=== PATIENT | female | born 1990 | race Two or more races ===

== ENCOUNTER 2023-07-26 12:40 | Outpatient (OUT) | payer BC, SELFPAY ==
--- NOTE | 2023-07-26 12:45 | US_ITS ---
[address] [address] Patient Name: MATTY HOLLEY MRN: [id number] date: 1990 Sex: F Assigned Patient Location: [facility] Current Patient Location: [facility] Accession/Order Number: [id number] Exam Date: 07/26/2023 12:45 Report Date: 07/26/2023 13:38 At the request of: DMITRIY BOWIE Procedure: US OB transvaginal EXAMINATION: US OB transvaginal HISTORY: MISSED MENSES COMPARISON: No relevant comparison available. FINDINGS: GESTATIONAL SAC: Present and normal appearing. YOLK SAC: Present and normal appearing. POLE: Present and normal appearing. CARDIAC: Present. UTERUS: Small subchorionic hematoma/implantation bleed. OVARIES: Right: Corpus lutein cyst. Left: Normal. CERVIX: 4.4 cm in length and closed. CUL-DE-SAC: Normal. OTHER: None. AGE BY LMP: 9 weeks 2 days DWIGHT BY LMP: 02/26/2024 AGE BY US CRL: 10 weeks 1 day DWIGHT BY US CRL: 02/20/2024 US/US OB transvaginal IMPRESSION: 1. Single live intrauterine . Electronically authenticated by: DANG MENDOZA Date: 07/26/2023 13:38
== END 2023-07-26 12:41 | disposition home or self-care (01) ==
LOC: NOMS 12:42
PROVIDERS: Visit Provider Obstetrics & Gynecology
DX: N92.6 Irregular menstruation, unspecified (principal); Z3A.10 10 weeks gestation of pregnancy
CPT/HCPCS: 76817

== ENCOUNTER 2023-08-08 15:47 | Outpatient (OUT) | payer BC, SELFPAY ==
[2023-08-08 16:26] LABS: Basophils Absolute Auto 0.1 10^3/uL (0.0-0.1); Basophils Percent Auto 0.8 % (0.2-2.0); Eosinophils Absolute Auto 0.1 10^3/uL (0.0-0.7); Eosinophils Percent Auto 1.5 % (0.9-7.0); Hematocrit 36.9 % (36.0-48.0); Hemoglobin 12.4 g/dL (12.0-16.0); Immature Granulocytes Abs Auto 0.02 10^3/uL (0.00-0.03); Immature Granulocytes Pct Auto 0.3 % (0.0-0.5); Lymphocytes Absolute Auto 2.2 10^3/uL (1.2-3.8); Lymphocytes Percent Auto 27.6 % (20.5-60.0); Mean Corpuscular HGB Conc 33.6 g/dL (29.9-35.2); Mean Corpuscular Hemoglobin 31.7 pg (26.7-34.0); Mean Corpuscular Volume 94.4 fL (81.0-99.0); Mean Platelet Volume 10.1 fL (9.5-13.5); Monocytes Absolute Auto 0.4 10^3/uL (0.3-0.8); Monocytes Percent Auto 5.6 % (1.7-12.0); Neutrophils Percent Auto 64.2 % (43.0-75.0); Platelet Count 289 10^3/uL (150-450); Red Blood Count 3.91 10^6/uL (4.20-5.40); White Blood Count 7.8 10^3/uL (4.0-11.0)
--- OUTSIDE RECORDS SUMMARY | 2023-08-08 16:27 | XMS_ITS | CCD ---
Author Organization [facility] Team Providers Care Salmon Gillnet Vessel Operator Name Role Phone SELF, SELF Unavailable Unavailable MIGUEL GAMBOA Unavailable Unavailable EZEQUIEL, DR CUEVA Consulting Unavailable EZEQUIEL, DR CUEVA Admitting Unavailable EZEQUIEL, DR CUEVA Attending Unavailable REQUEST, NONE LISTED Primary Care Unavaila Edmundo Archer Consulting Unavailable JUNIOR, HERBERT Consulting Unavailable JUNIOR, HERBERT Admitting Unavailable REQUEST, NONE LISTED Primary Care [place] PACHECO, HERBERT Attending Unavailable JUNIOR, HERBERT Consulting Unavailable JUNIOR, HERBERT Admitting Unavailable REQUEST, NONE LISTED Primary Care Un[place] PACHECO, HERBERT Attending Unavailable JUNIOR, HERBERT Consulting Unavailable REQUEST, NONE LISTED Primary Care Unavaila dennis PACHECO, HERBERT Admitting Unavailable JUNIOR, HERBERT Attending Unavailable REQUEST, NONE LISTED Primary Care Unavaila dennis PACHECO, HERBERT Consulting Unavailable JUNIOR, HERBERT Admitting Unavailable JUNIOR, HERBERT Attending Unavailable EZEQUIEL, DR CUEVA Admitting Unavailable EZEQUIEL, DR CUEVA Attending Unavailable EZEQUIEL, DR CUEVA Consulting Unavailable REQUEST, NONE LISTED Primary Care Unavaila dennis BERGMAN, LISA Admitting Unavailable REQUEST, NONE LISTED Primary Care [place] BERGMAN, LISA Attending Unavailable PACHECO, LISA Consulting Unavailable JUNIOR, HERBERT Consulting Unavailable REQUEST, NONE LISTED Primary Care Unavaila dennis PACHECO, HERBERT Admitting Unavailable JUNIOR, HERBERT Attending Unavailable Arminda Holt Unavailable Medications Current Medications Medication Drug Class(es) Dates Sig (Normalized) Sig (Original) [id number] 200 actuat albuterol 0.09 mg/actuat metered dose inhaler (1 source) beta2-Adrenergic Agonist Start: 03-29-2021 take 2 puff(s) by inhalation every four hours as needed Albuterol Sulfate HFA 108 (90 Base) MCG/ACT 2 puffs as needed Inhalation every 4 hrs Mar, Active Pre-Marlene (1 source) Pre-Marlene Active Problems Active Problems Problem Classification Problem Date Documented Date Episodic/Chronic Abdominal pain (4 sources) Right upper quadrant pain; Translations: [RIGHT UPPER QUADRANT PAIN] Onset: 08-19-2020 Episodic Biliary tract disease (1 source) Other cholelithiasis without obstruction; Translations: [OTH CHOLELITHIASIS W/O OBSTRUCTION] Onset: 08-27-2020 Episodic Menstrual disorders (4 sources) Secondary amenorrhea; Translations: [SECONDARY AMENORRHEA] Onset: 06-02-2020 Chronic Other upper respiratory infections (5 sources) Acute pharyngitis, unspecified; Translations: [Acute upper respiratory infection, unspecified] Onset: 11-08-2020 Episodic Screening and history of mental health and substance abuse codes (1 source) Personal history of nicotine dependence; Translations: [PERSONAL HISTORY OF NICOTINE DEPEND] Onset: 11-24-2020 Episodic Unclassified (1 source) Hemorrhage in early , unspecified / O20.9(ICD-10) Onset: 01-09-2017 Unclassified (1 source) CONTACT W/AND (SUSP) EXPOS COVID-19; Translations: [CONTACT W/AND (SUSP) EXPOS COVID-19] Onset: 11-24-2020 Viral infection (1 source) Herpesviral vulvovaginitis; 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 Past or Other Problems Problem Classification Problem Date Documented Da te Episodic/Chronic Immunizations and screening for infectious disease (1 source) Contact with and (suspected) exposure to other viral communicable diseases Onset: 03-29-2021 Resolved: 03-29-2021 Episodic Other aftercare (1 source) Other skilled nursing (current) drug therapy; Translations: [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] Onset: 08-19-2020 Episodic Other and delivery including normal (4 sources) Encounter for test, result positive; Translations: [ENC TEST RESULT POSITIVE] Onset: 05-20-2020 Episodic Unclassified (1 source) Hemorrhage in early , unspecified; Translations: [Hemorrhage in early , unspecified] Onset: 01-09-2017 Viral infection (1 source) COVID-19 Onset: 03-29-2021 Resolved: 03-29-2021 Results Test Name Value Interpretation Reference Range Facility Complete Blood Count Auto Di ffon 06-14-2021 Basophils (Bld) [#/Vol] 0.0 10*3/uL Normal 0.0-0.2 [facility] Comment on above: Result Comment: PERF ORMED BY: [place] [address] PATHOLOGIST COPING MACHINE OPERATOR STEPHANIE ROACH M.D. Performed By: #### C BC #### [address] Basophils/100 WBC (Bld) 0.6 % Normal . [facility] Comment on above: Performed By: #### C BC #### [address] Eosinophils (Bld) [#/Vol] 0.1 10*3/uL Normal 0.0-0.45 [facility] Comment on above: Performed By: #### C BC #### [address] Eosinophils/100 WBC (Bld) 1.7 % Normal . [facility] Comment on above: Performed By: #### C BC #### [address] Erythrocyte distribution width (RBC) [Ratio] 13.5 % Normal 11.9-15.3 [facility] Comment on above: Performed By: #### C BC #### [address] Hematocrit (Bld) [Volume fraction] 30.6 % Low 34.0-46.4 [facility] Comment on above: Performed By: #### C BC #### [place] [address] [place] Hemoglobin (Bld) [Mass/Vol] 10.2 g/dL Low 11.8-15.4 [facility] Comment on above: Performed By: #### C BC #### [address] Lymphocytes (Bld) [#/Vol] 2.1 10*3/uL Normal 1.00-4.8 [facility] Comment on above: Performed By: #### C BC #### [facility] [address] Lymphocytes/100 WBC (Bld) 24.1 % Normal . [facility] Comment on above: Performed By: #### C BC #### [facility] [address] MCH (RBC) [Entitic mass] 31.4 pg Normal 24.7-34.3 [facility] Comment on above: Performed By: #### C BC #### [address] MCV (RBC) [Entitic vol] 94.0 fL Normal 80-100 F [facility] Comment on above: Performed By: #### C BC #### [address] Mean Corpuscular HGB Conc 33.4 g/dL Normal 32.0-35.0 [facility] Comment on above: Performed By: #### C BC #### [place] [address] [place] Monocytes (Bld) [#/Vol] 0.4 10*3/uL Normal 0.0-0.8 [facility] Comment on above: Performed By: #### C BC #### [place] [address] [place] Monocytes/100 WBC (Bld) 4.9 % Normal . [facility] Comment on above: Performed By: #### C BC #### [address] Neutrophils (Bld) [#/Vol] 5.9 10*3/uL Normal 1.8-7.7 [facility] Comment on above: Performed By: #### C BC #### [place] [address] [place] Neutrophils/100 WBC (Bld) 68.7 % Normal . [facility] Comment on above: Performed By: #### C BC #### [place] [address] [place] Nucleated RBC/100 WBC (Bld) [Ratio] 0.1 % Normal 0-0.5 [facility] Comment on above: Performed By: #### C BC #### [address] Platelet mean volume (Bld) [Entitic vol] 8.0 fL Normal 6.3-10.7 [facility] Comment on above: Performed By: #### C BC #### [address] Platelets (Bld) [#/Vol] 298 10*3/uL Normal 150-450 [facility] Comment on above: Performed By: #### C BC #### [address] RBC (Bld) [#/Vol] 3.25 10*6/uL Low 3.60-5.00 [facility] Comment on above: Performed By: #### C BC #### [address] WBC (Bld) [#/Vol] 8.6 10*3/uL Normal 4.5-11.0 [facility] Comment on above: Performed By: #### C BC #### [address] Dipstick and Microscopicon 0 06-14-2021 Appearance (U) Clear Normal Clear [facility] Comment on above: Order Comment: Name Collection Type:: Clean-Voided Midstream Performed By: #### A DDONUAPLUS, OBUDS #### [address] Bacteria,Urine None Seen Normal None Seen [facility] Comment on above: Order Comment: Name Collection Type:: Clean-Voided Midstream Performed By: #### A DDONUAPLUS, OBUDS #### [address] Bilirubin,Urine Negative Normal Negative [facility] Comment on above: Order Comment: Name Collection Type:: Clean-Voided Midstream Performed By: #### A DDONUAPLUS, OBUDS #### [facility] [address] [place] [address] [place] Color (U) Yellow Normal Yellow [facility] Comment on above: Order Comment: Name Collection Type:: Clean-Voided Midstream Performed By: #### A DDONUAPLUS, OBUDS #### [facility] [address] [place] [address] [place] Glucose Ql (U) Normal Normal Normal [facility] Comment on above: Order Comment: Name Collection Type:: Clean-Voided Midstream Performed By: #### A DDONUAPLUS, OBUDS #### [place] [address] [place] Hyaline Casts,Urine 0-8 Normal 0-8 [facility] Comment on above: Order Comment: Name Collection Type:: Clean-Voided Midstream Result Comment: PERF ORMED BY: [place] [address] PATHOLOGIST COPING MACHINE OPERATOR STEPHANIE ROACH M.D. Performed By: #### A DDONUAPLUS, OBUDS #### [facility] [address] [place] [address] [place] Ketones Ql (U) Negative Normal Negative [facility] Comment on above: Order Comment: Name Collection Type:: Clean-Voided Midstream Performed By: #### A DDONUAPLUS, OBUDS #### [place] [address] [place] Leukocyte esterase Test strip Ql (U) Negative Normal Negative [facility] Comment on above: Order Comment: Name Collection Type:: Clean-Voided Midstream Performed By: #### A DDONUAPLUS, OBUDS #### [place] [address] [place] Nitrite,Urine Negative Normal Negative [facility] Comment on above: Order Comment: Name Collection Type:: Clean-Voided Midstream Performed By: #### A DDONUAPLUS, OBUDS #### [facility] [address] [place] [address] [place] Occult Blood,Urine 3+ High Negative [facility] Comment on above: Order Comment: Name Collection Type:: Clean-Voided Midstream Result Comment: PERF ORMED BY: [place] [address] PATHOLOGIST COPING MACHINE OPERATOR STEPHANIE ROACH M.D. Performed By: #### A DDONUAPLUS, OBUDS #### [address] pH (U) 7.5 [pH] Normal 5.0-9.0 [facility] Comment on above: Order Comment: Name Collection Type:: Clean-Voided Midstream Performed By: #### A DDONUAPLUS, OBUDS #### [address] Protein,Urine Negative Normal Negative [facility] Comment on above: Order Comment: Name Collection Type:: Clean-Voided Midstream Performed By: #### A DDONUAPLUS, OBUDS #### [address] RBC,Urine 20-49 High 0-4 [facility] Comment on above: Order Comment: Name Collection Type:: Clean-Voided Midstream Performed By: #### A DDONUAPLUS, OBUDS #### [address] Specificy [place],Urine 1.009 Normal 1.001-1.030 [facility] Comment on above: Order Comment: Name Collection Type:: Clean-Voided Midstream Performed By: #### A DDONUAPLUS, OBUDS #### [address] Squamous Epithelial Cell,Urine 1-2 Normal 0-2 [facility] Comment on above: Order Comment: Name Collection Type:: Clean-Voided Midstream Performed By: #### A DDONUAPLUS, OBUDS #### [address] Urobilinogen,Urine Normal Normal Normal [facility] Comment on above: Order Comment: Name Collection Type:: Clean-Voided Midstream Performed By: #### A DDONUAPLUS, OBUDS #### [facility] [address] [place] [address] [place] WBC,Urine None Seen Normal 0-4 [facility] Comment on above: Order Comment: Name Collection Type:: Clean-Voided Midstream Performed By: #### A DDONUAPLUS, OBUDS #### [facility] [address] OB Urine Drug Screen (NO THC )on 06-14-2021 Amphetamine Screen,Urine Negative Normal Negative [facility] Comment on above: Performed By: #### A DDONUAPLUS, OBUDS #### [place] [address] [place] Barbiturate Screen,Urine Negative Normal Negative [facility] Comment on above: Performed By: #### A DDONUAPLUS, OBUDS #### [place] [address] [place] Benzodiazepines Screen,Urine Negative Normal Negative [facility] Comment on above: Performed By: #### A DDONUAPLUS, OBUDS #### [place] [address] [place] Cocaine Screen,Urine Negative Normal Negative [facility] Comment on above: Performed By: #### A DDONUAPLUS, OBUDS #### [facility] [address] [place] [address] [place] Opiate Screen,Urine Negative Normal Negative [facility] Comment on above: Performed By: #### A DDONUAPLUS, OBUDS #### [facility] [address] [place] [address] [place] Phencyclidine Screen, Urine Negative Normal Negative [facility] Comment on above: Result Comment: Thes e are unconfirmed results and should not be used for legal purposes. Drug Cut-Off Concentration: AMPH 1000 ng/mL NOLBERTO 200 ng/mL BIANCA 200 ng/mL COCM 300 ng/mL OP 300 ng/mL PCP 25 ng/mL PERFORMED BY: [place] [address] PATHOLOGIST COPING MACHINE OPERATOR STEPHANIE ROACH M.D. Performed By: #### A DDONUAPLUS, OBUDS #### [facility] [address] US OB 2nd/3rd Trimesteron US OB 2nd/3rd Trimester FINDINGS: Comparison is made with the prior examination of January 27, 2021. A single, viable intrauterine is present with adequate cardiac (158 beats per minute) and activity and amniotic fluid volume. Amniotic fluid index is 15.0 cm. Morphology is grossly normal. The cervix is long and closed, 4.1 cm. The current sonographic age is 19 weeks and 2 days, based on the following measurements: BPD 4.6 cm (19 weeks, 6 days) Head Tjzzzmfiutynd63.3 cm (19 weeks, 0 days) Abdominal Udppdvjsjgtdu30.6 cm (19 weeks, 0 days) Femur Length 3.1 cm (19 weeks, 3 days) PresentationBreech Weight (g) by Gsqqkenstm92.4%* These measurements result in an estimated date of delivery of September 06, 2021 . The current estimated weight is 282 grams (10 ounces). Complete placenta previa involving the primarily the posterior uterine body, lower segment with circumferential extension anteriorly. IMPRESSION: 1. Single, viable intrauterine , current sonographic age of 19 weeks and 2 days, with an estimated date of delivery of September 06, 2021. Estimated date of delivery on the prior examination was September 08, 2021. 2. Complete placenta previa, closed cervix 4.1 cm length. *Estimated Weight (g) by Percentile is based upon an accurate estimated age based on last menstrual period. Report reported and signed by Ayo Jiménez on 04/18/2021 0921 Normal [facility] Medical Staff Director Coding Summaryon 04-07-2021 Coding Summary HTMLBase 64 XelhjerjBAy5hTi+PG hlYWQ+WG5CUSFhY32e zIAxsB0XK7tILW0OCW NISJRRPB9RVG5htKJ3 MWdcF7UdmoKe CatzqMHuPT77EWg3YT P8cXnvIZhyvY3dyKFs U1s4MwRtJR19uK24FT sjZPKaEfI0SqUmkjnt bWFy Q6mbOfVcqVMtSis+PH RhYmxlIHdpZHRoPScx SEBiDvUwnNsfWS4lCg 9yZGVyLWNvbGxhcHNl OiBj e4ydIUSgIOybXF5voE wbG1OpoOF7ZFZjo6g0 Ul72pAG+DIInGQT8hT ugTFnwh810MhEkk8hu IDM3 sWDbSMrpXYQ5W37zq8 B5BGZwRRPpAJV1wPE4 rN1ybBdbczdfA6PujM IqKeX5QWP9mKLduC2e bGln teemaO6vGjj+Q09ESU 7YDBKELV8CQkk0A6Sk PjwvdHI+PC57VYTiIJ 26rEYuuACyi3zmvEj5 JzEw WNPnQIP0nGtoXChhq3 NiEFJzH99reSCmj1K4 IGNvbGxhcHNlOyBlbX U1yZ7eMKuhirwmm3yh dzsn Fovky2nwxe97yZ53P3 4dVAovDLMpSVA9GNHf IVWdcPldby2juG5bYu 8+QHoho9dmg6ituSv4 IjIw FDWyuaYxjCrsYYF0g3 OnHn82W6WucVlon0Zx Nmn8im81sUPgd1G7jH Q0BJazWRXfmW6sBSbe ZnQ6 JAWiAtCzqX31sZVdPX baOz2ssNhpkDhwEB4z MUCzfxebYBUtiB4oIA CvsCZcqNzlJP6rXOOa bjtm a751JdOvZPU7XLJwaH TwQ4SsuS2eKtKlAOOh MTEdZ6NbtVUmSUbcX4 74PQdfFvR8KYPqzxCs Y2Fs XWCqcJncNrT6l9T4Hb 5Gq7AqtlizSYH4FAra LOIaWwRxCuMfRdL0J4 XoAtt8RLYfpDhsSB7g J3Bh ENBexwufxsvpzMS7TB GaNZNtcN39pXBzQJyx Od5dj2E8d199RZZcRC QclJ32Yb5rtJmtHHHh dCBU aQ1azevyu5qlifrgAu LmSMGrBWa2WNz7STSu uYvkZrJeWJM6SbJ0VX H2uTYqjQ4aqPyuihsg dG9w Oyc+I17tsP5jTIR8QM N9jvugKWHxdiXvYC22 NP13J3XgNaquiTQskU U+ROIpqqEwyKpqFR4e YmFj b3owg6GtHSysW5RbVS RtGZfkGgb1CAGxOGU3 uYD3rS8qUCWeZXicq8 I5lHA6C1DwhfAsou1y b2xs TCHwLWmdU28avIJxv2 O9BQElpNF9FJAthTal EbUphV27Syl+PGNvbG fin3AeIhcbb7bgj2nf dGg9 IjMwJSIgdmFsaWduPS S2m7YhXc84J45uGIlh ZHRoPSIxNSUiIHZhbG djkc1fhR9yBe6+PGNv bCB3 bEA4kF6aNYAsDkC4TG zqP150HvGonKBmNaxc z9ozj5ateBi6RfUlFG BqqlDrzSpvLWD2c1Ga Lz48 L26gCWdbRLXqUHUlQW DwNDPyaDxzrn7iiC6c Ii8+ZJ6gt3tuid94qD 48dHI+FIGkSGT9nDnw PSdw IBOnvJ3uCCkwCuH9XA ClWbZdyZ74dHJkQSlh Pw3bpHyjuLfrPU9pPD Hbikvpk115SbZfr0lw IDEw lSEdDGccVHY0H43qy0 P8ETIeTLSrAIB5gSD2 nT1bjUwifodeqCXumI sgdmVydGljYWwtYWxp Z246 IHRvcDsnPlBhdGllbn RqNjOrNCo2A8RfUre3 WCOrcBltPF4fbCOzVU dpIb9wpTuyrMrgUC5r NTBp bqtxn774CgKkc3kaHQ UwdDSbTHryOYN6B97s b6W6ALNzXYXfEFR2mZ X0xK3vkCvmygjvvBZs dDsg dmVydGljYWwtYWxpZ2 46IHRvcDsnPkJpcnRo HKEnaQX0EV25CR03jV Ppf0N4gRC5I9HrMVDx bmct tfqngVL2IHBiOHXfgN 13Pz1dcHwpBg6rTDYp NBE0BUZajQHaH3MpcC 7pLcLrZIMzPWCsB4Fq eHQt IXslP542FBfgHsI6NY RwsxMbU1RcPWAgfHjs RbJ9p5X9Nb4VY3J0ES 82NA24xQLua2M8lUD2 J3Bh NPGmecaxfiwqsTB3LF RyUZSzcW98Ij1fkUfg Le0yOTUwHRN4TCHacX TwB6EzfU0cDvYzZERh MDAw L2PwqALhMRyoN910AA goKmB2XLGbvnIzK7Ky IUSpqEsoUxP7w7Q2Qv 1CYGg7MN30JI07eWMl c3R5 oGO5L4RuFBCxojzlvz eydKL8VDBwTSXbtU18 Ng7waKauXt0oBADzRC O6UHDydBXhO9KdkS9y OiAj SPKdPHNdH9QtjAMoAU pjA722CTxfLmL7LKAv tmGbV9XuBSLgcMbvEg K2z4F0Am9MMBLeBX77 IFR5 nCX6UC12XP44P5TiKz wvdGFibGU+PHRhYmxl IHdpZHRoPScxMDAlJy CmyShrTJ4rCn5uHRPe LWNv tKyajLEvJgBww5hvYX TrADyuIX0zuEvjO4Ly uZN2LWCyh5v8Ft42R8 4xZ1NcqRR+PGNvbCB3 aWR0 fA8wIyKvCkM9IDjvX5 79RxJhnLPqIgolt3fl z9heaJy5IwY8QSJbiu NywAwgJHX1f6YqCn58 Y29s IHdpZHRoPSIxNSUiIH DvmGdobk0coK2oZb5+ SZJmpDZ6uKG3qT1xTu KqOtN8EMteX100FmHu cCIv Tdpjb2bjh1smyMj8Fk IwJSIgdmFsaWduPSJ0 b5VrIc10R6VbmEgwc3 KrFbd9ua63sBOpx8L1 bGU9 Q5IiUJFrmcnzpQJlbT fcVQ3wGAZrkkjwEJTo dK7uNKJzK4m6QpCrWi Z3DKkkA2OpjbG9CACn cHQg ZIxpTBY8X52yq9J3WC OlFMMdMSM2mIR5jJ1l bGlnbjogbGVmdDsgdm XrbUjhXQgqTTmvL391 IHRv jBoiPQMhmZ9hKKZycG QlpBhjFB8rHSThgafy YrJBYcKCXvzsCF4IBP FVIYF1P1RfPqo9RGXo dHls ZS8boQLpWNvhKt8rmV ajoYnxEG2cWDTxqqno GYEwmM5iKWGgtOWwrC foIT7kMESdaeuap554 OiAx YBU8SOCywENmG1RasW 4zQzRmMOJtXZBqH5Ha uZQfQIhfA755MPhkWu D0CXFoekZlI0FgXVOi aWdu GbF5n0S3Rs9sDc0lAa 8nIZpnLU83YV10wSLa h7Q1cZE1U7AkRJWduy lmkbtxbYZ3FIIwDFVr aW47 rDHkSYfyUz7nv3D8u7 41WFUiAUYhyD41Ze7j jAdyZRHkoERClW9tbn trd0mlquygQfYtAOOr MDt0 TRo7NJEydFpoUkWpZK T2CrM8HOO4zSTcwG4j aSlcmjjpgK4vBeq+Mz WnXBLefhF3R5TqAnf8 ZCBz jDtfYP4bqJQaEIewYm 9juOkfcNmjLW4jCNLe mycnKPGwsR4iTJNhjV EwnDswCV5yMASlrrfg b250 YnKyYAZ3UHUgpZMdZ2 BzsJ1wNkMqQFJiXJDx N6WegPCcUOukJ884DR jxEpZ0KEAupjIuM9Tm LWFs jEkoAzC8v5Y5Aj1UZL 0XQNE9I8VoEyz2TPYw oXroHQ0ypWZoTMxuHv 7utIahhOkrHO9cSYMr bjtw JCYidJ0uBXEqzBUhvM xdHX1mGMSpmfexf638 TpMaVJJ6QCFxnDPiW7 QyqL3xRgAdUMEmDHWf O3Rl oZMvKSsxF768EMyrOi F7RPKzqzOwK9CaBBVh zEckOuE3m8A0Pg6ICT wvdGQ+FW35po49U0De Ymxl Ahp3OWNlFYR0qET2zT 2uLUWdVLrer6W6kBB7 K8QsyiCkac0xn8inLZ KfSCxxC52fcYAhx1V3 IGVt bNS1ZJDtqFkhQuTayZ 93Oyc+DPDjzSprd8Rs Ivqsl3dlm3igxCd4Uc MwJSIgdmFsaWduPSJ0 b3Ai Qt08C04kCCjsMNBaXJ QvLZYxJGNzkJsuon7l mM1jRx4+WOSytMJ0jH D4pG2bPrDaUvD8DSes Z249 NtBspJPpJmwra1dyi0 pwdOa8DyOtCLIdwkJu aRavMEO3z5EcWr16L3 LpnZbvn9JbAwo5sk05 dGQg p5D7vRM4S4JiVRJvrq yvrHPdyRcmAD7dKQKd rxdiEMPhsP0lRRUhM1 g5SuGmJiS3CZteY2Fh bnQ6 IGJvbGQgMTBwdCBUaW 9nquxyg5bzxmuuNqXc JUMaMMz2BSw2YPKbkV kxFsVeDSJ3LqK6YEX0 aWNh aO3plNglindsqB4zPq c+EWw7j8enkILjBI6o pFE0MB45YR10cKEol5 R4cKC4U3FxFPXpuhdi cmln hZW7JPCfFWQziD85Bf 0fhSowKe1oBEShFQM6 KXIdyZAoB0HncZ7tPx XjRBGpZQDqN8YakTUd YWxp D823BBwvDcV4FMUzvy SmG4RcPKJncOsyWlF2 n6A3Uu4OHK97VU45WP 28aITri2F9kER6E9Md ZGRp jywlpyixcCS1VXJbTW AqzU04Xs8jwCrkIk1c FCFaVPI9OIAggQHfD2 VprQ0sZiPoZMAlUMBw O3Rl eGUaJHvpM259NGhlHr R5ZXWgyyAmP8DxMZNl hHzzAiA2g7E2Xy6AQa 98AJ49DQ36uLQdw5F2 bGU9 G4HjAGWeeyieydjswC J5MLEsAZPawG50Oe9d lQdkDj1bAVBkSVN9FC FpvJCqU5CdaA3cItPc MDAw IKTlJ6YypBApNJmqM6 44KMwuCoW1KVPlghDl V2NoXXPdyComMcK3q4 A7Zq6EOLjjmmz3P3Wg Pjwv dHI+GS42CERgHX05xX QqxPZba1iykMn2JcPm YONkCKD7aMzkJQzpg9 MaOCDgT49nhKKso3K6 IGNv bGx (more content not included)... [facility] Consent Formson 04-01-2021 Consent Forms [id number]#1.00OTGTIFF [facility] Provider Orderson 04-01-2021 Provider Orders [id number]#1.00OTGTIFF [facility] COVID Quick Testingon 2021 Result Positive [employer] Other HERPES SIMPLEX VIRUS 1/2 DNA PCRon 11-11-2020 HSV-1 DNA Negative Normal Negative [facility] Comment on above: Performed By: #### C BC #### [facility] [address] [place] [address] Sunshine Carlos HSV-2 DNA Positive Abnormal Negative [facility] Comment on above: Result Comment: This test was developed and its performance characteristics determined by [facility]. It has not been cleared or approved by the U.S. Food and Drug Administration. The FDA has determined that such clearance or approval is not necessary. This test is used for clinical purposes. It should not be regarded as investigational or research. Performed By: #### C BC #### [facility] [address] [place] [address] Sunshinevinita Carlos CULTURE URINEon 11-10-2020 CULTURE URINE Isolate 1 Streptococcus pyogenes >100,000 cfu/mL of ORGANISM 1 Streptococcus pyogenes ANTIBIOTIC M.I.C RX STATUS Benzylpenicillin <=0.06 S F Ampicillin <=0.25 S F Cefotaxime <=0.12 S F Ceftriaxone <=0.12 S F Levofloxacin 0.5 S F Erythromycin 4 R F Clindamycin <=0.25 S F Linezolid <=2 S F Vancomycin <=0.12 S F Tetracycline <=0.25 S F Normal [facility] Comment on above: Performed By: #### C BC #### [facility] [address] [place] [id number] Sunshine Carlos CHLAMYDIA/GONOCOCCUS TINA (SW AB/URINE/PAPon 11-09-2020 Chlamydia trachomatis, TINA Negative Normal Negative [facility] Comment on above: Performed By: #### C T/NGNA #### [facility] [address] [place] [id number] Sunshine Carlos Neisseria gonorrhoeae, TINA Negative Normal Negative [facility] Comment on above: Performed By: #### C T/NGNA #### [facility] [address] [place] [address] Sunshine Carlos [facility]18 SARS-CoV-2 (COVID-19) RNA TINA+probe Ql (Unsp spec) Not detected Normal NOT DETECTED [facility] Comment on above: Result Comment: This test is not yet approved or cleared by the [place] FDA. When there are no FDA-approved or cleared tests available, and other criteria are met, FDA can make tests available under an emergency access mechanism called an Emergency Use Authorization (EUA). The EUA for this test is supported by the [place] of Health and Human Service's (HHS's) declaration that circumstances exist to justify the emergency use of in vitro diagnostics for the detection and/or diagnosis of the virus that causes COVID-19. This EUA will remain in effect (meaning this test can be used) for the duration of the COVID-19 declaration justifying emergency of IVDs, unless it is terminated or revoked by FDA (after which the test may no longer be used). When diagnostic testing is negative, the possibility of a false negative should be considered in the context of a patient's recent exposures and the presence of clinical signs and symptoms consistent with SARS-CoV-2. Performed By: #### C VDAGS, CVDTBH #### [facility] [address] [place] [address] Sunshine Carlos ER URINE PROFILEon Bilirubin Ql (U) Negative Normal NEGATIVE [facility] Comment on above: Performed By: #### C BC #### [facility] [address] [place] [address] Sunshine Carlos Clarity (U) CLEAR Normal CLEAR [facility] Comment on above: Performed By: #### C BC #### [facility] [address] [place], [place] [id number] Sunshinevinita Carlos Color (U) LT. YELLOW Normal YELLOW [facility] Comment on above: Performed By: #### C BC #### [facility] [address] [place], [place] [id number] Sunshine Carlos ERUAHD A micrscopic examination will be performed if indicated. Normal [facility] Comment on above: Performed By: #### C BC #### [facility] [address] [place] [address] Sunshine Breanna Glucose Ql (U) Negative Normal NEGATIVE [facility] Comment on above: Performed By: #### C BC #### [facility] [address] [place] [address] Sunshine Breanna Hemoglobin Ql (U) LARGE Abnormal NEGATIVE [facility] Comment on above: Performed By: #### C BC #### [facility] [address] [place] [address] Sunshine Breanna Ketones Ql (U) Negative Normal NEGATIVE [facility] Comment on above: Performed By: #### C BC #### [facility] [address] [place] [address] Sunshine Breanna LEUKOCYTES Negative Normal NEGATIVE [facility] Comment on above: Performed By: #### C BC #### [facility] [address] [place] [address] Sunshine Breanna Nitrite Ql (U) Negative Normal NEGATIVE [facility] Comment on above: Performed By: #### C BC #### [facility] [address] [place] [address] Sunshine Breanna pH (U) 5.5 [pH] Normal 5-9 [facility] Comment on above: Performed By: #### C BC #### [facility] [address] [place] [address] Sunshine Breanna SPEC GRAVITY >=1.030 Abnormal 1.005-<=1.[address] [place] [address] Comment on above: Performed By: #### C BC #### [facility] [address] [place] [address] Sunshine Breanna UA PROTEIN Negative Normal NEGATIVE/ TRACE [facility] Comment on above: Performed By: #### C BC #### [facility] [address] [place] [address] Sunshine Breanna UR MICRO IND INDICATED Normal [facility] Comment on above: Performed By: #### C BC #### [facility] [address] [place] [address] Sunshine Carlos Urobilinogen Qn (U) 0.2 {Braden'U}/dL Normal 0.2 - 1. 0 [facility] Comment on above: Performed By: #### C BC #### [facility] [address] [place], [place] [address] Sunshine Carlos URon 11-08-2020 , QUAL Negative Normal NEGATIVE [facility] Comment on above: Performed By: #### C BC #### [facility] [address] [place], [place] [address] Sunshine Carlos STREPT SCREENon 11-08-2020 STREP SCREEN A Positive Abnormal NEGATIVE [facility] Comment on above: Performed By: #### C BC #### [facility] [address] [place] [address] Sunshine Carlos SYMPTOMATIC COVID-19 ANTIGEN on 11-08-2020 EUA Statement SEE BELOW Normal [facility] Comment on above: Result Comment: This test has not been FDA cleared or approved, but has been authorized by the FDA under an Emergency Use Authorization (EUA) for use by authorized laboratories certified under CLIA that meet the requirements to perform moderate or high complexity testing. This test has been authorized only for the detection of proteins from SARS-CoV-2, not for any other viruses or pathogens. The emergency use of this test is authorized for the duration of the declaration that circumstances exist justifying the authorization of emergency use of in vitro diagnostic tests for detection and/or diagnosis of Covid-19 under section 564(b)(1) of the Act, 21 U.S.C. 360bbb-3(b)(1), unless the declaration is terminated or authorization is revoked sooner. Performed By: #### C VDAGS, CVDTB #### [facility] [address] [place], [place] [address] Sunshine Carlos SARS-CoV-2 (COVID-19) RNA TINA+probe Ql (Unsp spec) Negative Normal NEGATIVE [facility] Comment on above: Result Comment: CONF IRMATION BY PCR PENDING PER CDC GUIDELINES/ SYMPTOMATIC PATIENT. Performed By: #### C VDAGS, CVDTBH #### [facility] [address] [place], [place] [address] Sunshine Breanna URINE MICROSCOPIC ONLYon AMORPHOUS CRYSTALS FEW Normal [facility] Comment on above: Performed By: #### C BC #### [facility] [address] [place] [id number] Sunshine Breanna BACTERIA SMALL Abnormal NONE SEEN [facility] Comment on above: Performed By: #### C BC #### [facility] [address] [id number] Sunshine Breanna Bacteria identified Cx Nom (U) INDICATED Normal [facility] Comment on above: Performed By: #### C BC #### [facility] [address] [place], [place] [address] Sunshine Breanna CAST NONE SEEN Normal NONE SEEN [facility] Comment on above: Performed By: #### C BC #### [facility] [address] [place], [place] [address] Sunshine Breanna Crystals LM Nom (Urine sed) SEEN Abnormal NONE SEEN [facility] Comment on above: Performed By: #### C BC #### [facility] [address] [place], [place] [address] Sunshine Breanna Epithelial cells LM Ql (Urine sed) MODERATE Abnormal NONE SEEN /RARE [facility] Comment on above: Performed By: #### C BC #### [facility] [address] [place], [place] [address] Sunshine Breanna MUCOUS MODERATE Abnormal NONE SEEN [facility] Comment on above: Performed By: #### C BC #### [facility] [address] [place], [place] [address] Sunshine Breanna RBC 2-5 Abnormal 0-2 [facility] Comment on above: Performed By: #### C BC #### [facility] [address] [place], [place] [address] Sunshine Breanna WBC 5-10 Abnormal NONE SEEN [facility] Comment on above: Performed By: #### C BC #### [facility] [address] [place], [place] [address] Sunshine Breanna US SINGLE QUAD RT UPPERon US SINGLE QUAD RT UPPER EXAM: US SINGLE QUAD RT UPPER HISTORY: 30-year-old female presenting with intermittent, right upper quadrant pain. TECHNIQUE: Ultrasound of the right upper quadrant abdomen. COMPARISON: Prior ultrasound dated 04/30/2019. FINDINGS: Liver: Normal in size, contour and echogenicity. The liver measures 15.5 cm. No intrahepatic biliary ductal dilatation. Gallbladder: Redemonstration of several echogenic foci with shadowing within the gallbladder consistent with calculi. The largest calculus measures about 2.7 x 1.8 cm. A second large calculus is seen measuring 1.8 x 1 cm. The wall of the gallbladder is within normal limits and measures 0.3 cm. The sonographic Borrego's sign is negative. Common bile duct: Normal in diameter, measuring 0.2 cm. Right kidney: Normal in size and echogenicity measuring 11 x 5.5 x 4.7 cm. No hydronephrosis or renal calculus. IMPRESSION: 1. Cholelithiasis. No ultrasound evidence of acute cholecystitis. 2. Overall no significant interval change. Electronically authenticated by: EDMUNDO GUZMAN Date: 2020-08-19 15:[address] [facility] AMYLASEon 08-17-2020 Amylase [Catalytic activity/Vol] 49 U/L Normal 31-110 [facility] Comment on above: Performed By: #### C BC #### [facility] [address] [place] [address] Sunshine Breanna CBC AUTO DIFFon 08-17-2020 BASO # 0.0 103/ul Normal 0.0-0.1 [facility] Comment on above: Performed By: #### C BC #### [facility] [address] [place] [address] Sunshine Breanna Basophils/100 WBC (Bld) 0.6 % Normal 0.2-2.0 [facility] Comment on above: Performed By: #### C BC #### [facility] [address] [place] [address] Sunshine Breanna EO # 0.1 103/ul Normal 0.0-0.7 [facility] Comment on above: Performed By: #### C BC #### [facility] [address] [place] [address] Sunshine Breanna Eosinophils/100 WBC (Bld) 1.3 % Normal 0.9-7.0 [facility] Comment on above: Performed By: #### C BC #### [facility] [address] [place], [place] [address] Sunshinevinita Carlos Erythrocyte distribution width (RBC) [Ratio] 13.0 % Normal 11.0-15.0 [facility] Comment on above: Performed By: #### C BC #### [facility] [address] [place] [address] Sunshine Breanna Hematocrit (Bld) [Volume fraction] 39.1 % Normal 36.0-48.0 [facility] Comment on above: Performed By: #### C BC #### [facility] [address] [place] [address] Sunshinevinita Carlos Hemoglobin (Bld) [Mass/Vol] 13.2 g/dL Normal 12.0-16.0 [facility] Comment on above: Performed By: #### C BC #### [facility] [address] [place] [address] Sunshine Breanna IG # 0.01 10e3/ul Normal 0.00-0.03 [facility] Comment on above: Performed By: #### C BC #### [facility] [address] [place] [address] Sunshine Breanna IG % 0.1 % Normal 0.0-0.5 [facility] Comment on above: Performed By: #### C BC #### [facility] [address] [place] [address] Sunshine Breanna LYMPH # 2.4 103/ul Normal 1.2-3.8 [facility] Comment on above: Performed By: #### C BC #### [facility] [address] [place], [place] [address] Sunshine Carlos Lymphocytes/100 WBC (Bld) 33.5 % Normal 20.5-60.0 [facility] Comment on above: Performed By: #### C BC #### [facility] [address] [place] [address] Sunshinevinita Carlos MANUAL DIFF REQ NO Normal [facility] Comment on above: Performed By: #### C BC #### [facility] [address] [place], [place] [address] Sunshinevinita Carlos MCH (RBC) [Entitic mass] 30.6 pg Normal 26.7-34.0 [facility] Comment on above: Performed By: #### C BC #### [facility] [address] [place] [id number] Sunshinevinita Carlos MCHC (RBC) [Mass/Vol] 33.8 g/dL Normal 29.9-35.2 [facility] Comment on above: Performed By: #### C BC #### [facility] [address] [place] [id number] Sunshine Carlos MCV (RBC) [Entitic vol] 90.7 fL Normal 81.0-99.0 [facility] Comment on above: Performed By: #### C BC #### [facility] [address] [place], [place] [address] Sunshine Gonzalezen MONO # 0.3 103/ul Normal 0.3-0.8 [facility] Comment on above: Performed By: #### C BC #### [facility] [address] [place] [id number] Sunshine Carlos Monocytes/100 WBC (Bld) 4.1 % Normal 1.7-12.0 [facility] Comment on above: Performed By: #### C BC #### [facility] [address] [place], [place] [address] Sunshine Gonzalezen NEUT # 4.2 103/ul Normal 1.4-6.5 [facility] Comment on above: Performed By: #### C BC #### [facility] [address] [place], [place] [address] Sunshine Breanna Neutrophils/100 WBC (Bld) 60.4 % Normal 43.0-75.0 [facility] Comment on above: Performed By: #### C BC #### [facility] [address] [place], [place] [address] Sunshinevinita Carlos Platelet mean volume (Bld) [Entitic vol] 10.7 fL Normal 9.5-13.5 [facility] Comment on above: Performed By: #### C BC #### [facility] [address] [place] [id number] Sunshine Breanna PLT 321 103/ul Normal 150-450 [facility] Comment on above: Performed By: #### C BC #### [facility] [address] [place] [address] Sunshine Breanna RBC 4.31 106/ul Normal 4.20-5.40 [facility] Comment on above: Performed By: #### C BC #### [facility] [address] [place], [place] [address] Sunshine Breanna WBC 7.0 103/ul Normal 4.0-11.0 [facility] Comment on above: Performed By: #### C BC #### [facility] [address] [place] [address] Sunshine Breanna LIPASEon 08-17-2020 Lipase [Catalytic activity/Vol] 97.0 U/L Normal 23.0-300.0 [facility] Comment on above: Performed By: #### T CANDE, CMP, LIPA, CHARLIE #### [facility] [address] [place], [place] [address] Sunshinevinita Carlos PROF 14(COMP METB)on 021 Albumin [Mass/Vol] 3.5 g/dL Normal 3.5-5.0 [facility] Comment on above: Performed By: #### T CANDE, CMP, LIPA, CHARLIE #### [facility] [address] [place], [place] [address] Sunshine Breanna Albumin/Globulin [Mass ratio] 0.8 {ratio} Normal [facility] Comment on above: Performed By: #### T CANDE, CMP, LIPA, CHARLIE #### [facility] [address] [place], [place] [address] Sunshine Breanna ALP [Catalytic activity/Vol] 64 U/L Normal 38-126 [facility] Comment on above: Performed By: #### T CANDE, CMP, LIPA, CHARLIE #### [facility] [address] [place] [address] Sunshine Breanna ALT [Catalytic activity/Vol] 12 U/L Normal 9-52 [facility] Comment on above: Performed By: #### T CANDE, CMP, LIPA, CHARLIE #### [facility] [address] [place] [address] Sunshine Breanna Anion gap [Moles/Vol] 14.9 mmol/L Normal [facility] Comment on above: Performed By: #### T CANDE, CMP, LIPA, CHARLIE #### [facility] [address] [place] [address] Sunshine Breanna AST [Catalytic activity/Vol] 9 U/L Critically low 14-36 [facility] Comment on above: Performed By: #### T CANDE, CMP, LIPA, CHARLIE #### [facility] [address] [place] [address] Sunshine Breanna Bilirubin [Mass/Vol] 0.2 mg/dL Normal 0.2-1.3 [facility] Comment on above: Performed By: #### T CANDE, CMP, LIPA, CHARLIE #### [facility] [address] [place] [address] Sunshine Breanna Calcium [Mass/Vol] 8.9 mg/dL Normal 8.4-10.2 [facility] Comment on above: Performed By: #### T CANDE, CMP, LIPA, CHARLIE #### [facility] [address] [place] [address] Sunshine Breanna Chloride [Moles/Vol] 108 mmol/L Critically high 98-107 [facility] Comment on above: Performed By: #### T CANDE, CMP, LIPA, CHARLIE #### [facility] [address] [place] [address] Sunshine Breanna CO2 [Moles/Vol] 23.8 mmol/L Normal 22.0-30.0 [facility] Comment on above: Performed By: #### T CANDE, CMP, LIPA, CHARLIE #### [facility] [address] [place] [address] Sunshine Breanna Creatinine [Mass/Vol] 0.81 mg/dL Normal 0.52-1.04 [facility] Comment on above: Performed By: #### T CANDE, CMP, LIPA, CHARLIE #### [facility] [address] [place], [place] [address] Sunshine Breanna EGFR-AF FAROESE >60 Normal >=60 [facility] Comment on above: Performed By: #### T CANDE, CMP, LIPA, CHARLIE #### [facility] [address] [place] [id number] Sunshine Breanna EGFR-NON AF FAROESE >60 Normal >=60 [facility] Comment on above: Performed By: #### T CANDE, CMP, LIPA, CHARLIE #### [facility] [address] [place] [address] Sunshine Breanna Globulin (S) [Mass/Vol] 4.4 g/dL Normal [facility] Comment on above: Performed By: #### T CANDE, CMP, LIPA, CHARLIE #### [facility] [address] [place] [address] Sunshine Breanna Glucose [Mass/Vol] 92 mg/dL Normal 74-106 [facility] Comment on above: Performed By: #### T CANDE, CMP, LIPA, CHARLIE #### [facility] [address] [place] [address] Sunshine Breanna Potassium [Moles/Vol] 3.7 mmol/L Normal 3.4-5.0 [facility] Comment on above: Performed By: #### T CANDE, CMP, LIPA, CHARLIE #### [facility] [address] [place] [id number] Sunshine Breanna Protein [Mass/Vol] 7.9 g/dL Normal 6.1-8.2 [facility] Comment on above: Performed By: #### T CANDE, CMP, LIPA, CHARLIE #### [facility] [address] [place] [id number] Sunshine Breanna Sodium [Moles/Vol] 143 mmol/L Normal 137-145 [facility] Comment on above: Performed By: #### T CANDE, CMP, LIPA, CHARLIE #### [facility] [address] [place] [id number] Sunshine Breanna Urea nitrogen [Mass/Vol] 14.0 mg/dL Normal 7.0-17.0 [facility] Comment on above: Performed By: #### T CANDE, CMP, LIPA, CHARLIE #### [facility] [address] [place] [address] Sunshine Breanna Urea nitrogen/Creatinine [Mass ratio] 17.3 mg/mg Normal [facility] Comment on above: Performed By: #### T CANDE, CMP, LIPA, CHARLIE #### [facility] [address] [place] [address] Sunshine Breanna PREG QUANT HCGon 06-02-2020 HCG QUANT 14 mIU/mL Normal [facility] Comment on above: Performed By: #### C LANCEAGS, CVDTB #### [facility] [address] [place] [address] Sunshine Breanna HCG RANGE SEE BELOW Normal [facility] Comment on above: Result Comment: 5-50 0-1 WEEK 40-300 1-2 WEEKS 100-1,000 2-3 WEEKS 500-6,000 3-4 WEEKS 5,000-200,000 1-2 MONTHS 10,000-100,000 2-3 MONTHS 3,000-50,000 2ND TRIMESTER 1,000-50,000 3RD TRIMESTER Performed By: #### C IVELISSE, CVDTB #### [facility] [address] [place] [address] Sunshine Breanna PREG QUANT HCGon 05-20-2020 HCG QUANT 13 mIU/mL Normal [facility] Comment on above: Performed By: #### C BC #### [facility] [address] [place] [address] Sunshine Breanna HCG RANGE SEE BELOW Normal [facility] Comment on above: Result Comment: 5-50 0-1 WEEK 40-300 1-2 WEEKS 100-1,000 2-3 WEEKS 500-6,000 3-4 WEEKS 5,000-200,000 1-2 MONTHS 10,000-100,000 2-3 MONTHS 3,000-50,000 2ND TRIMESTER 1,000-50,000 3RD TRIMESTER Performed By: #### C BC #### [facility] [address] [place] [address] Sunshine Breanna PREG QUANT HCGon 05-06-2020 HCG QUANT 20 mIU/mL Normal [facility] Comment on above: Performed By: #### P REGQNT #### [facility] [address] [place] [address] Sunshine Breanna HCG RANGE SEE BELOW Normal [facility] Comment on above: Result Comment: 5-50 0-1 WEEK 40-300 1-2 WEEKS 100-1,000 2-3 WEEKS 500-6,000 3-4 WEEKS 5,000-200,000 1-2 MONTHS 10,000-100,000 2-3 MONTHS 3,000-50,000 2ND TRIMESTER 1,000-50,000 3RD TRIMESTER Performed By: #### P REGQNT #### [facility] [address] [place] [address] Sunshine Breanna PREG QUANT HCGon 04-29-2020 HCG QUANT 21 mIU/mL Normal [facility] Comment on above: Performed By: #### P REGQNT #### [facility] [address] [place] [address] Sunshine Breanna HCG RANGE SEE BELOW Normal [facility] Comment on above: Result Comment: 5-50 0-1 WEEK 40-300 1-2 WEEKS 100-1,000 2-3 WEEKS 500-6,000 3-4 WEEKS 5,000-200,000 1-2 MONTHS 10,000-100,000 2-3 MONTHS 3,000-50,000 2ND TRIMESTER 1,000-50,000 3RD TRIMESTER Performed By: #### P REGQNT #### [facility] [address] [place] [address] Sunshine Breanna ABO AND RH TYPEon 04-22-2020 ABO and Rh group Nom (Bld) ABO Rh Typing O Rh Positive Normal [facility] Comment on above: Performed By: #### C BC #### [facility] [address] [place] [address] Sunshine Breanna PREG QUANT HCGon 04-22-2020 HCG QUANT 37 mIU/mL Normal [facility] Comment on above: Performed By: #### P REGQNT #### [facility] [address] [place], [place] [address] Sunshine Breanna HCG RANGE SEE BELOW Normal [facility] Comment on above: Result Comment: 5-50 0-1 WEEK 40-300 1-2 WEEKS 100-1,000 2-3 WEEKS 500-6,000 3-4 WEEKS 5,000-200,000 1-2 MONTHS 10,000-100,000 2-3 MONTHS 3,000-50,000 2ND TRIMESTER 1,000-50,000 3RD TRIMESTER Performed By: #### P REGQNT #### [facility] [address] [place], [place] [address] Sunshine Carlos ED Note-Physicianon 10-16-19 20 ED Note-Physician [id number] 0EC#[id number]:[id number] Normal [facility] Chlam and gonorrhea: Amp, Ur ine -UHEon 01-12-2017 Chlam and gonorrhea: Amp, Urine -UHE Negative Negative THIS TEST WAS PERFORMED USING A REAL TIME PCR ASSAY. Normal [facility] Comment on above: Performed By: #### R NABU ####[address] [address] Beta HCG (Qual), Urine - MCH on 01-09-2017 HCG.beta subunit ( test) Ql (U) Positive Abnormal Negative [facility] Comment on above: Performed By: #### H CGUMD, UR1MD ####[address] [address], [place] [address] Beta HCG, quant, S - MCHon 1 Beta HCG, quant, S - MCH 78219.0 mIU/mL Normal [facility] Comment on above: Result Comment: FEMA LE GESTATIONAL AGERESULTS <10 ARE CONSIDERED NEGATIVE4 WEEKS 4700-493352 mIU/mL5 WEEKS 3660-799254 mIU/mL6 WEEKS 43796-041696 mIU/mL7 WEEKS 08762-817503 mIU/mL8 WEEKS 53174-006101 mIU/mL9 WEEKS 04825-973536 mIU/mL10 WEEKS 69209-727626 mIU/mL11 WEEKS 6480-703475 mIU/ml12 WEEKS 6740-801461 mIU/mL13-27 WEEKS 8200-562838 mIU/mL28-40 WEEKS 2320-49830 mIU/mL Performed By: #### C BCMD, PTPTMD, TYSCMD, QHCGMD ####[address] [address] CBC, ELECTRONIC DIFF, PLATEL ET - MCHon 01-09-2017 Absolute Basophil 0.0 K/uL Normal 0.0-0.23 [facility] Comment on above: Performed By: #### C BCMD, PTPTMD, TYSCMD, QHCGMD ####[place] [address] Absolute Grans 5.9 K/uL Normal 1.8-7.7 [facility] Comment on above: Performed By: #### C BCMD, PTPTMD, TYSCMD, QHCGMD ####[address] [address] Basophils/100 WBC Auto (Bld) 0.5 % Normal 0-2 [facility] Comment on above: Performed By: #### C BCMD, PTPTMD, TYSCMD, QHCGMD ####[place] [address] Eosinophils 0.1 10*3/uL Normal 0.0-0.7 [facility] Comment on above: Performed By: #### C BCMD, PTPTMD, TYSCMD, QHCGMD ####[place] [address] Eosinophils/100 leukocytes 1.0 % Normal 0-5.0 [facility] Comment on above: Performed By: #### C BCMD, PTPTMD, TYSCMD, QHCGMD ####[address] [address] Erythrocytes (RBC) 13.8 % Normal 11.5-14.5 [facility] Comment on above: Performed By: #### C BCMD, PTPTMD, TYSCMD, QHCGMD ####[place] [address] Grans Electronic 64.6 % Normal 50-70 [facility] Comment on above: Performed By: #### C BCMD, PTPTMD, TYSCMD, QHCGMD ####[address] [address] Hematocrit (HCT) 34.5 % Low 35.0-45.0 [facility] Comment on above: Performed By: #### C BCMD, PTPTMD, TYSCMD, QHCGMD ####[place] [address] [place], [place] [address] Hemoglobin mass conc (Bld) 31.0 pg Normal 27.0-34.0 [facility] Comment on above: Performed By: #### C BCMD, PTPTMD, TYSCMD, QHCGMD ####[place] [address] [address] [place], [place] [address] Hemoglobin mass conc (Bld) 11.7 g/dL Normal 11.7-15.5 [facility] Comment on above: Performed By: #### C BCMD, PTPTMD, TYSCMD, QHCGMD ####[place] [address] [place], [place] [address] Lymphocytes 2.6 10*3/uL Normal 1.0-4.8 [facility] Comment on above: Performed By: #### C BCMD, PTPTMD, TYSCMD, QHCGMD ####[place] [address] [address] [place], [place] [address] Lymphocytes/100 leukocytes 28.7 % Normal 22.0-44.0 [facility] Comment on above: Performed By: #### C BCMD, PTPTMD, TYSCMD, QHCGMD ####[place] [address] [address] [place], [place] [address] MCH 3.78 M/uL Low 3.8-5.1 [facility] Comment on above: Performed By: #### C BCMD, PTPTMD, TYSCMD, QHCGMD ####[place] [address] [address] [place], [place] [address] MCH 9.1 K/uL Normal 4.5-11.0 [facility] Comment on above: Performed By: #### C BCMD, PTPTMD, TYSCMD, QHCGMD ####[place] [address] [address] [place], [place] [address] MCV 91.0 fL Normal 81.0-100.0 [facility] Comment on above: Performed By: #### C BCMD, PTPTMD, TYSCMD, QHCGMD ####[facility] [place], [place] [address] Monocytes 0.5 10*3/uL Normal 0.0-0.9 [facility] Comment on above: Performed By: #### C BCMD, PTPTMD, TYSCMD, QHCGMD ####[facility] [place], [place] [address] Monocytes/100 leukocytes 5.2 % Normal 0-7.0 [facility] Comment on above: Performed By: #### C BCMD, PTPTMD, TYSCMD, QHCGMD ####[place] [address] [place], [place] [address] Platelet mean volume (PMV) 8.3 fL Normal 7.5-11.2 [facility] Comment on above: Performed By: #### C BCMD, PTPTMD, TYSCMD, QHCGMD ####[place] [address] [address] [place], [place] [address] Platelets 281 10*3/uL Normal 150-400 [facility] Comment on above: Performed By: #### C BCMD, PTPTMD, TYSCMD, QHCGMD ####[place] [address] [place], [place] [address] ED PROVIDERon 01-09-2017 [facility] HIM CAC NOTES Normal [facility] NOTES Normal [facility] OSUHIMCACCODINGOPEDon 2016 [facility] CAC Coding OP/ED Report Normal [facility] OSUHIMCACENCSUMon 01-09-2017 [facility] CAC Encounter Summary Report Normal [facility] PT*PTT - MCHon 01-09-2017 aPTT 33 s Normal 24.6-35.9 [facility] Comment on above: Performed By: #### C BCMD, PTPTMD, TYSCMD, QHCGMD ####[place] [id number] [place], [place] [address] INR Coag RelTime (Bld) 1.1 {INR} Normal 0.87-1.15 [facility] Comment on above: Performed By: #### C BCMD, PTPTMD, TYSCMD, QHCGMD ####[place] [address] [place], [place] [address] MCH 13.3 sec Normal 11.5-14.3 [facility] Comment on above: Performed By: #### C BCMD, PTPTMD, TYSCMD, QHCGMD ####[place] [address] [place], [place] [address] TYPE AND SCREEN - MCHon 12-18 MCH ABO/RH(D) - MCH: O POSITIVE ANTIBODY SCREEN - MCH: Negative Normal [facility] Comment on above: Performed By: #### C BCMD, PTPTMD, TYSCMD, QHCGMD ####[place] [address] [place], [place] [address] [facility]inalysis [facility] COM[facility] URINE None Normal [facility] Comment on above: Performed By: #### H CGUMD, UR1MD ####[place] [address] [place], [place] [address] Squamous Epithelial 2+ /HPF Normal [facility] Comment on above: Performed By: #### H CGUMD, UR1MD ####[place] [address] [place], [place] [address] Urine, bacteria in sediment Absent Normal Absent [facility] Comment on above: Performed By: #### H CGUMD, UR1MD ####[place] [address] [place], [place] [address] Urine, erythrocytes in sediment by area 0-2 Normal 0-2 [facility] Comment on above: Performed By: #### H CGUMD, UR1MD ####[place] [address] [place], [place] [address] Urine, leukocytes in sedmiment 0-5 Normal 0-5 [facility] Comment on above: Performed By: #### H CGUMD, UR1MD ####[place] [address] [place], [place] [address] Bilirubin Urine Negative Normal Negative [facility] Comment on above: Performed By: #### H CGUMD, UR1MD ####[place] [address] [place], [place] [address] Blood Urine Moderate Abnormal Negative [facility] Comment on above: Performed By: #### H CGUMD, UR1MD ####[place] [address] [place], [place] [address] Nitrites Urine Negative Normal Negative [facility] Comment on above: Performed By: #### H CGUMD, UR1MD ####[place] [address] [place], [place] [address] Protein Urine Negative Normal Negative [facility] Comment on above: Performed By: #### H CGUMD, UR1MD ####[place] [address] [place], [place] [address] Specific [place] urine 1.020 Normal 1.001-1.035 [facility] Comment on above: Performed By: #### H CGUMD, UR1MD ####[place] [address] [place], [place] [address] Urine, appearance Clear Normal Clear [facility] Comment on above: Performed By: #### H CGUMD, UR1MD ####[place] [address] [place], [place] [address] Urine, color Yellow Normal YEL,DKYEL [facility] Comment on above: Performed By: #### H CGUMD, UR1MD ####[facility] [place], [place] [address] Urine, glucose presence Negative Normal Negative [facility] Comment on above: Performed By: #### H CGUMD, UR1MD ####[place] [address] [place], [place] [address] Urine, ketones presence Negative Normal Negative [facility] Comment on above: Performed By: #### H CGUMD, UR1MD ####[place] [address] [place], [place] [address] Urine, leukocyte esterase presence Negative Normal Negative [facility] Comment on above: Performed By: #### H CGUMD, UR1MD ####[place] [address] [place], [place] [address] Urine, pH 6.0 [pH] Normal 5.0-7.0 [facility] Comment on above: Performed By: #### H CGUMD, UR1MD ####[place] [address] [place], [place] [address] Urobilinogen urine 0.2 EU/dL Normal <2.0 [facility] Comment on above: Performed By: #### H CGUMD, UR1MD ####[place] [address] [place] [address] Vital Signs Date Time Vital Sign Value Performing Clinician Facility 03-29-2021 11:15-0500 Body height 172.72 cm Arminda Holt Other [facility] Other 03-29-2021 11:15-0500 Body mass index (BMI) [Ratio] 36.49 kg/m2 Arminda Holt Other [facility] Other 03-29-2021 11:15-0500 Body temperature 97 [degF] Arminda Holt Other [facility] Other 03-29-2021 11:15-0500 Body weight 108.86 kg Arminda Holt Other [facility] Other 03-29-2021 11:15-0500 SaO2% (BldA) [Mass fraction] 99 % Arminda Holt Other [facility] Other Encounters Encounter Date Encounter Type Care Provider Facility Start: 07-26-2023 End: 07-26-2023 ambulatory Not Available Start: 03-29-2021 End: 03-29-2021 ambulatory Arminda Holt Other [facility] Other Start: 03-29-2021 Office outpatient ne w 20 minutes Arminda Holt [facility] Start: 11-08-2020 End: 11-08-2020 ambulatory LISA BERGMAN Facility:[facility] Start: 08-19-2020 End: 08-20-[address] HAMMAD NIEVES Facility:[facility] Start: 08-17-2020 End: 08-17-[address] HAMMAD NIEVES Facility:[facility] Start: 06-02-2020 End: 06-03-2020 ambulatory HERBERT PACHECO Facility:[facility] Start: 05-20-2020 End: 05-21-[address] PAYAN LISTED REQUEST Facility:[facility] Start: 05-06-2020 End: 05-07-2020 ambulatory HERBERT PACHECO Facility:[facility] Start: 04-29-2020 End: 04-30-2020 ambulatory HERBERT PACHECO Facility:[facility] Start: 04-22-2020 End: 04-23-2020 ambulatory HERBERT PACHECO Facility:[facility] Start: 01-09-2017 End: 01-09-2017 Emergency department patient visit SELF SELF [facility] Payers Date Payer Category Payer Unknown [id number] 2017 Unknown [id number] 1989 Unknown [id number] 2.16.84 [id number] 1989 Unknown [id number] 2.16.84 [id number] 1989 Unknown [id number] 2.16.84 [id number] 1989 Unknown [id number] 2.16.84 [id number] 1989 Unknown [id number] 2.16.84 [id number] 1989 Unknown [id number] 2.16.84 [id number] 1989 Unknown [id number] 2.16.84 [id number] 1989 Unknown [id number] 2.16.84 [id number] 1989 Unknown [id number] 2.16.84 [id number] 1960 Private Health Insurance [id number] 1960 Self-pay [id number] Unknown [id number] . [id number] Social History Date Type Detail Facility Sex Assigned At [facility] Other Evaluation note 03-29-2021 Note Date & Type Note Facility 03-29-2021 Evaluation note Encounter Date Diagnosis Assessment Notes Mar, Contact with and (suspected) exposure to other viral communicable diseases (ICD-10 - Z20.828) covid pos, see above. Mar, COVID (ICD-10 - U07.1) Covid test pos in office today. Pt is to use inhaler as prescribed prn for cough and wheeze. Supportive care as directed. Push fluids and rest. Pt is to take otc antipyretic prn for fever and aches. Pt is to take otc cough suppressant prn for cough. They are to follow the recommended stay at home quarantine rules for 10 days from onset of sx and they are to avoid contact with others in the home. Pt is to be re-evaluated after tx if sx worsen or don't improve by pcp or UC. Discussed at length sx of resp distress that would indicate need for immediate ER tx. Sx include but not limited to worsening SOB, wheeze, dyspnea, difficulty swallowing or breathing, and chest pain. Go straight to ER for any of these sx. Pt is to call the office with any questions or concerns regarding dx and tx. Information sheet with test results, general info on covid virus, and info sheet about treatment at home and quarantine guidelines was provided to pt in office today. Pt was referred to PCP for chronic management. Pt understood and agreed to tx plan. Advised pt to contact OB if questioning what otc meds to take while . Pt understood and agreed to these instructions. Mar, Other Additional time spent conducting pre-visit phone call, screening for symptoms, instructions on social distancing, application and removal of PPE, and cleaning of examination room, equipment and supplies was preformed. Patient education given for testing methodology and results. Patient care instructions given in writting by [facility] Care At Home document. [facility] Other Summary Purpose Family History No Family History Records FoundNo Family History Records FoundNo Family History Records FoundNo Family History Records FoundNo Family History Records FoundNo Family History Records FoundNo Family History Records Found Advance Directives No Advanced Directives Records FoundNo Advanced Directives Records FoundNo Advanced Directives Records FoundNo Advanced Directives Records FoundNo Advanced Directives Records FoundNo Advanced Directives Records FoundNo Advanced Directives Records Found Additional Source Comments INFORMATION SOURCE (unrecogn ized section and content) DATE CREATED AUTHOR 09/11/2017 [facility] DATE CREATED AUTHOR AUTHOR'S ORGANIZ ATION 10/18/2019 [facility] DATE CREATED AUTHOR AUTHOR'S ORGANIZ ATION 11/24/2020 [facility] DATE CREATED AUTHOR AUTHOR'S ORGANIZ ATION 04/08/2021 [facility] [place] DATE CREATED AUTHOR AUTHOR'S ORGANIZ ATION 04/18/2021 [facility] DATE CREATED AUTHOR AUTHOR'S ORGANIZ ATION 06/24/2021 [facility] DATE CREATED AUTHOR AUTHOR'S ORGANIZ ATION 07/28/2023 [facility] EPIC REASON FOR VISIT (unrecogniz ed section and content) #6 [place] EQUINOX, SOB, COUGH, FATIGUE, H/A, FOR RECORDS PERTAINING TO PATIENTS WHO ARE OR HAVE BEEN ENROLLED IN A CHEMICAL DEPENDENCY/SUBSTANCEABUSE PROGRAM, SOME INFORMATION MAY BE OMITTED. This clinical summary was aggregated from multiple sources. Caution should be exercised in using it in the provision of clinical care. This summary normalizes information from multiple sources, and as a consequence, information in this document may materially change the coding, format and clinical context of patient data. In addition, data may be omitted in some cases. CLINICAL DECISIONS SHOULD BE BASED ON THE PRIMARY CLINICAL RECORDS. [facility]. provides no warranty or guarantee of the accuracy or completeness of information in this document.
[2023-08-08 17:39] LABS: Estimated Average Glucose 97 mg/dL
[2023-08-10 06:10] LABS: HBsAg Screen Negative (Negative); HCV Ab Non Reactive (Non Reactive); HIV Ab/p24 Ag Screen Non Reactive (Non Reactive)
[2023-08-10 07:08] LABS: Rubella Antibodies, IgG 1.23 index (Immune >0.99)
[2023-08-10 11:09] LABS: Rapid Plasma Reagin, Quant Non Reactive titer (NonRea<1:1)
== END 2023-08-08 15:48 | disposition home or self-care (01) ==
LOC: LAB 15:49
PROVIDERS: Visit Provider Obstetrics & Gynecology
DX: N92.6 Irregular menstruation, unspecified (principal)
CPT/HCPCS: 36415; 83036; 85025; 86592; 86762; 86803; 86850; 86900; 86901; 87086; 87340; 87389

== ENCOUNTER 2023-09-24 20:57 | Outpatient (REF) | payer BC, SELFPAY ==
--- OUTSIDE RECORDS SUMMARY | 2023-09-24 21:01 | XMS_ITS | CCD ---
Author Organization [facility] Care Team Providers Care Medical Transcriptionist Name Role Phone SELF, SELF Unavailable Unavailable [...] Attending Unavailable EZEQUIEL, DR CUEVA Admitting Unavailable HAY, DR CUEVA Attending Unavailable HAY, DR CUEVA Consulting Unavailable REQUEST, NONE LISTED Primary Care Unavaila dennis BERGMAN, LISA Admitting Unavailable REQUEST, NONE LISTED Primary Care UnavailLISA Stein Attending Unavailable PACHECO, LISA Consulting Unavailable JUNIOR, HERBERT Consulting Unavailable REQUEST, NONE LISTED Primary Care Unavaila dennis PACHECO, HERBERT Admitting Unavailable JUNIOR, HERBERT Attending Unavailable Arminda Holt Unavailable DMITRIY BOWIE Attending Unavailable Medications Current Medications Medication Drug Class(es) Dates Sig (Normalized) Sig (Original) [id number] 200 actuat albuterol 0.09 mg/actuat metered dose inhaler (1 source) beta2-Adrenergic Agonist Start: 03-29-2021 take 2 puff(s) by inhalation every four hours as needed Albuterol Sulfate HFA 108 (90 Base) MCG/ACT 2 puffs as needed Inhalation every 4 hrs Mar, Active Pre- (1 source) Pre- Active Problems Active Problems Problem Classification Problem [...] 03-29-2021 Episodic Other aftercare (1 source) Other fpc (current) drug therapy; Translations: [OTH CUSTODIAL CURRENT DRUG THERAPY] Onset: 08-19-2020 Episodic Other [...] Facility Complete Blood Count Auto Di ffon 03-29-2022 Basophils (Bld) [#/Vol] 0.0 10*3/uL Normal 0.0-0.2 [facility] Comment on above: Result Comment: PERF ORMED BY: [place] [address] PATHOLOGIST CRACK OFF PERSON STEPHANIE ROACH M.D. Performed By: #### C BC #### [address] Basophils/100 WBC (Bld) 0.6 % Normal . [facility] Comment on above: Performed By: #### C BC #### [address] Eosinophils (Bld) [#/Vol] 0.1 10*3/uL Normal 0.0-0.45 [facility] Comment on above: Performed By: #### C BC #### [address] Eosinophils/100 WBC (Bld) 1.7 % Normal . [facility] Comment on above: Performed By: #### C BC #### [address] Erythrocyte distribution width (RBC) [Ratio] 13.5 % Normal 11.9-15.3 [facility] Comment on above: Performed By: #### C BC #### [address] Hematocrit (Bld) [Volume fraction] 30.6 % Low 34.0-46.4 [facility] Comment on above: Performed By: #### C BC #### [place] [address] [place] Hemoglobin (Bld) [Mass/Vol] 10.2 g/dL Low 11.8-15.4 [facility] Comment on above: Performed By: #### C BC #### [address] Lymphocytes (Bld) [#/Vol] 2.1 10*3/uL Normal 1.00-4.8 [facility] Comment on above: Performed By: #### C BC #### [facility] [address] Lymphocytes/100 WBC (Bld) 24.1 % Normal . [facility] Comment on above: Performed By: #### C BC #### [facility] [address] MCH (RBC) [Entitic mass] 31.4 pg Normal 24.7-34.3 [facility] Comment on above: Performed By: #### C BC #### [address] MCV (RBC) [Entitic vol] 94.0 fL Normal 80-100 [facility] Comment on above: Performed By: #### C BC #### [address] Mean Corpuscular HGB Conc 33.4 g/dL Normal 32.0-35.0 [facility] Comment on above: Performed By: #### C BC #### [place] [address] [place] Monocytes (Bld) [#/Vol] 0.4 10*3/uL Normal 0.0-0.8 [facility] Comment on above: Performed By: #### C BC #### [address] Monocytes/100 WBC (Bld) 4.9 % Normal . [facility] Comment on above: Performed By: #### C BC #### [address] Neutrophils (Bld) [#/Vol] 5.9 10*3/uL Normal 1.8-7.7 [facility] Comment on above: Performed By: #### C BC #### [address] Neutrophils/100 WBC (Bld) 68.7 % Normal . [facility] Comment on above: Performed By: #### C BC #### [place] [id number] [place] Nucleated RBC/100 WBC (Bld) [Ratio] 0.1 % Normal 0-0.5 [facility] Comment on above: Performed By: #### C BC #### [address] Platelet mean volume (Bld) [Entitic vol] 8.0 fL Normal 6.3-10.7 [facility] Comment on above: Performed By: #### C BC #### [address] Platelets (Bld) [#/Vol] 298 10*3/uL Normal 150-450 [facility] Comment on above: Performed By: #### C BC #### [address] RBC (Bld) [#/Vol] 3.25 10*6/uL Low 3.60-5.00 [facility] Comment on above: Performed By: #### C BC #### [address] WBC (Bld) [#/Vol] 8.6 10*3/uL Normal 4.5-11.0 [facility] Comment on above: Performed By: #### C BC #### [place] [address] [place] Dipstick and Microscopicon 0 06-14-2021 Appearance (U) Clear Normal Clear [facility] Comment on above: Order Comment: Name Collection Type:: Clean-Voided Midstream Performed By: #### A DDONUAPLUS, OBUDS #### [place] [address] [place] Bacteria,Urine None Seen Normal None Seen [facility] Comment on above: Order Comment: Name Collection Type:: Clean-Voided Midstream Performed By: #### A DDONUAPLUS, OBUDS #### [place] [address] [place] Bilirubin,Urine Negative Normal Negative [facility] Comment on above: Order Comment: Name Collection Type:: Clean-Voided Midstream Performed By: #### A DDONUAPLUS, OBUDS #### [facility] [address] [place] [address] [place] Color (U) Yellow Normal Yellow [facility] Comment on above: Order Comment: Name Collection Type:: Clean-Voided Midstream Performed By: #### A DDONUAPLUS, OBUDS #### [place] [address] [place] Glucose Ql (U) Normal Normal Normal [facility] Comment on above: Order Comment: Name Collection Type:: Clean-Voided Midstream Performed By: #### A DDONUAPLUS, OBUDS #### [place] [address] [place] Hyaline Casts,Urine 0-8 Normal 0-8 [facility] Comment on above: Order Comment: Name Collection Type:: Clean-Voided Midstream Result Comment: PERF ORMED BY: [place] [address] PATHOLOGIST CRACK OFF PERSON STEPHANIE ROACH M.D. Performed By: #### A DDONUAPLUS, OBUDS #### [place] [address] [place] Ketones Ql (U) Negative Normal Negative [facility] Comment on above: Order Comment: Name Collection Type:: Clean-Voided Midstream Performed By: #### A DDONUAPLUS, OBUDS #### [place] [address] [place] Leukocyte esterase Test strip Ql (U) Negative Normal Negative [facility] Comment on above: Order Comment: Name Collection Type:: Clean-Voided Midstream Performed By: #### A DDONUAPLUS, OBUDS #### [place] [address] [place] Nitrite,Urine Negative Normal Negative [facility] Comment on above: Order Comment: Name Collection Type:: Clean-Voided Midstream Performed By: #### A DDONUAPLUS, OBUDS #### [place] [address] [place] Occult Blood,Urine 3+ High Negative [facility] Comment on above: Order Comment: Name Collection Type:: Clean-Voided Midstream Result Comment: PERF ORMED BY: [place] [address] PATHOLOGIST CRACK OFF PERSON STEPHANIE ROACH M.D. Performed By: #### A DDONUAPLUS, OBUDS #### [address] pH (U) 7.5 [pH] Normal 5.0-9.0 [facility] Comment on above: Order Comment: Name Collection Type:: Clean-Voided Midstream Performed By: #### A DDONUAPLUS, OBUDS #### [address] Protein,Urine Negative Normal Negative [facility] Comment on above: Order Comment: Name Collection Type:: Clean-Voided Midstream Performed By: #### A DDONUAPLUS, OBUDS #### [address] RBC,Urine 20-49 High 0-4 [facility] Comment on above: Order Comment: Name Collection Type:: Clean-Voided Midstream Performed By: #### A DDONUAPLUS, OBUDS #### [address] Specificy [place],Urine 1.009 Normal 1.001-1.030 [facility] Comment on above: Order Comment: Name Collection Type:: Clean-Voided Midstream Performed By: #### A DDONUAPLUS, OBUDS #### [place] [address] [place] Squamous Epithelial Cell,Urine 1-2 Normal 0-2 [facility] Comment on above: Order Comment: Name Collection Type:: Clean-Voided Midstream Performed By: #### A DDONUAPLUS, OBUDS #### [address] Urobilinogen,Urine Normal Normal Normal [facility] Comment on above: Order Comment: Name Collection Type:: Clean-Voided Midstream Performed By: #### A DDONUAPLUS, OBUDS #### [facility] [address] [place] [address] WBC,Urine None Seen Normal 0-4 [facility] Comment on above: Order Comment: Name Collection Type:: Clean-Voided Midstream Performed By: #### A DDONUAPLUS, OBUDS #### [facility] [address] [place] [address] OB Urine Drug Screen (NO THC )on 06-14-2021 Amphetamine Screen,Urine Negative Normal Negative [facility] Comment on above: Performed By: #### A DDONUAPLUS, OBUDS #### [address] Barbiturate Screen,Urine Negative Normal Negative [facility] Comment on above: Performed By: #### A DDONUAPLUS, OBUDS #### [place] [address] [place] Benzodiazepines Screen,Urine Negative Normal Negative [facility] Comment on above: Performed By: #### A DDONUAPLUS, OBUDS #### [place] [address] [place] Cocaine Screen,Urine Negative Normal Negative [facility] Comment on above: Performed By: #### A DDONUAPLUS, OBUDS #### [facility] [address] [place] [address] [place] Opiate Screen,Urine Negative Normal Negative [facility] Comment on above: Performed By: #### A DDONUAPLUS, OBUDS #### [address] Phencyclidine Screen, Urine Negative Normal Negative [facility] Comment on above: Result Comment: Thes e are unconfirmed results and should not be used for legal purposes. Drug Cut-Off Concentration: AMPH 1000 ng/mL NOLBERTO 200 ng/mL BIANCA 200 ng/mL COCM 300 ng/mL OP 300 ng/mL PCP 25 ng/mL PERFORMED BY: [place] [address] PATHOLOGIST CRACK OFF PERSON STEPHANIE ROACH M.D. Performed By: #### A DDONUAPLUS, OBUDS #### [facility] [address] [place] [id number] [facility] OB 2nd/3rd Trimesteron OB 2nd/3rd Trimester FINDINGS: Comparison is made [...] 4.6 cm (19 weeks, 6 days) Head Nxiftuxursvfw98.3 cm (19 weeks, 0 days) Abdominal Lqlmhfmdtzuiz45.6 cm (19 weeks, 0 days) Femur Length 3.1 cm (19 weeks, 3 days) PresentationBreech Weight (g) by Efpysercym95.4%* These measurements result in an estimated date [...] by Ayo Jiménez on 04/18/2021 0921 Normal [facility] Clinician Coding Summaryon 04-07-2021 Coding Summary HTMLBase 64 KbrrauseEQk5wKh+PG hlYWQ+FE4RJKJpI18x dUDfzS5AD9tAHV2XJA SVMMUHZU9BUX4cvSC6 KAfaE9QhapLa JzpncCAvDY95OHe9PC C7qSeaJHpbtM1joYSk G9k3FgKdPC68pP42SI ccAWKpEpC3WgEcafem bWFy A7gxYjIgmBTaQgl+PH RhYmxlIHdpZHRoPScx NTScDyKbnQhcMQ0eIs 9yZGVyLWNvbGxhcHNl OiBj e1elCNXyXExpOC2ujR rcA5EplYO8BEVsx1r8 Ry56wHT+EWObQAJ3pM kvJAigw638YsYbd3tn IDM3 rJNzOFevTTH1K94zr6 O6HSEoLOUdRAT8fDZ3 gK6ufMjntptuG6QcrY CcLhA2NYP0mNNtbS9u bGln iqqxxO9tYqg+Q09ESU 6AIGRSSB9DQgh4B0Pt PjwvdHI+QY60QNKtUG 32uEExqZPij5ikwTo9 JzEw OSXlRAA7nBnmDRxyd4 XgPXXoB16ndBGlc9V9 IGNvbGxhcHNlOyBlbX D9pB0vUQthyamxe6qt dzsn Baszb4rgmm61lO69Z0 5hCGrpEZFmIBE1KHMc TFHqxTlyys0tkA7xXq 8+QSklq6rsb5gwqBd7 IjIw SAIlntZidQczRRL2o3 TiNx38H6RvrYcyb6Kk Uaq7uk44lJUos2A3dU X2HSqfAGFauA7hALke ZnQ6 ROAfYiWjwB01hAQoRL ouUm6rgXmsqPdpLT1p XOLagvgwJQYtuJ5rWU XiqSGifIwuZR4eMCUc bjtm b044PmScALQ6AXRqmY PyT3JrvT0oXlMcORVp SYVlB4MvrKVfMBhkN7 30QBwrWqS9ZHXpzkLy Y2Fs PAIzyLedWsY3i7K1Vw 2Zb7WyqjszTGY3PMmk GJMiImKwOvAeZtQ9W2 JuUon5JRZifRgnCY5a J3Bh HDPdzqpyolkowTN8BO YfFJPhvI86pNTuIFiy Wu3rn2Y7v408OPYbXI XurV53Hi0tuOpqPYXh dCBU hF4ouzcja9czocskPy YdEXSoIMg5WHv3OFXr aAfiGyPrPBZ0DjB8BB S8pYPvgK7slLjyjbvt dG9w Oyc+A48fgO9sCCP3KE X5gxljQUDhieTrEY61 FC97Y0XwMaydgBRyqQ U+CQTeasCypTkxGR0p YmFj z5nzq3PqHDszT9GpXO VvRWznQlh7UPUvVQE5 vXU5tE8rOPZoOIeyn7 N6fOB3Q0LrygNyhv1f b2xs YWYhVFryV30yyYTdv3 B2JYLudJS8VXIbvSze JsSayQ62Stu+PGNvbG mwu1HyCuqhr7ruz2sa dGg9 IjMwJSIgdmFsaWduPS T4m3KiOw44M50bUGpk ZHRoPSIxNSUiIHZhbG fzyo0duJ9jAp6+PGNv bCB3 gGO9lK4pNUCtTnT4AY kbM075BuWliQFdMdbz e3ajk1nlqDg7CuWnHX GlwrYndOutCEJ2e9Sz Lz48 E29nRHzhKGQmTGDdFQ BsPEVriEzogy4qjI2z Ii8+RX9ns7eaha45aY 48dHI+DUQrGII8eTtp PSdw KNWxrO7tFDreZkR1SS IbCmUjqC49vVEiUFip Fj6kuZgmzEujAV9vUY Ceiexbv162HyQwp0gr IDEw yBPmSPacSCF6G99fx9 Y7FBQmAJQkNNI3iLW9 dK6yzLmmfrccwFCfkR sgdmVydGljYWwtYWxp Z246 IHRvcDsnPlBhdGllbn NhJsFxOSw6Q2SpVqh8 KPNidKdcRH2geHDvBC unIl5auEradMmlXL7u NTBp hfxeg159DyJyt1uxIG ObxDRqEEgmURJ5W74z h0E2KZYtLLUuZPH6oD E5sX0leFvxgyobuOXk dDsg dmVydGljYWwtYWxpZ2 46IHRvcDsnPkJpcnRo JTTriEN7CQ11MQ51rH Fcz0Q4iBM9S9NhZCYc bmct hchufQE6DTErVKOfxC 75Hh7xdAthPt1lJUFp PUV7WCFhoFZfN9VozP 3xAgQcYTWjJNOkG9Kj eHQt XWbuS951TTpvKqS9YN OndxWfV3ArZVLbgZjx SgH8z3Q0Wr6KI1U2CE 79SC34iBHqb3L7vVI0 J3Bh ODWuerbazwwmeBQ3UR GaPEXoaW85Ws2voGku Ky8mVJLkDIP6XLDnxQ OmY9SdmV1fIqOyDXFa MDAw E9WgbRIdEEveD753SX pgYgT2YHSbjqPlK4Mt CFCkcRhfRiJ9c3H4Lk 5JSNr7IF51DC63uBZn c3R5 fAB1N3EgTUWisnusnp cpiAM8HNAtVOSpgQ73 Kq6grFtkPt1kWWDyTP V0HZUnvBRdO5NmcH6u OiAj MQEyQAOvV9KqgSYcNS ubC302QTtmZvX1LXHl xaWdQ6DlFKSmmEtcGt S9u8M6Kz3HGPIlTZ27 IFR5 qBG8WF36DZ44N7UnWj wvdGFibGU+PHRhYmxl IHdpZHRoPScxMDAlJy KxyOhoSU3xGu6jHLIv LWNv vDejyOSeWbOuw6cqRY BkIOpdQS4cyRowZ1Ww mUY0QHRkk4i2Ak71Q5 1wY9DrdZK+PGNvbCB3 aWR0 tW1vNyWnMuI3UHspG4 76ZdWtfLOnTigwb8mc p7jzhIb8VjM0DQMqek GuvBhcXMQ5c7GmEk14 Y29s IHdpZHRoPSIxNSUiIH DlqHztxs1nlM1kNw9+ XJPxcFS9hVC5vI3nJx KsRyQ1WSmwL241PqYp cCIv Xrgne4sfi2djrHs6Tj IwJSIgdmFsaWduPSJ0 h4ZkJl12G5TvpXiyk4 DrHql1wu37xLPxg7A3 bGU9 X1LdXGHnjreuvIBwcB ujHU2dQMYqtfnlTAIe fL5uQHOaC3z8YiWcEd K8EXslN7RxnrQ6DSFe cHQg RUskPYR1P86nu3H8UA TmDZOrQZJ5hCK6yR8y bGlnbjogbGVmdDsgdm OskPwcZJczNIrrT201 IHRv oRmiYYNajN8fMAAnfT LogOrjMW7oAYReilgb ApQMIoBVBrtfUX9YTR UIJXE1N2BmUlg9MRVe dHls SJ8ukCGuTQchPo8qiN swmQnfLY1vHISqloeh KWAjuG1xKDHuwLLpgH reJO3qVMGulqtmh837 OiAx PSS3YMQljSYsI2ZwfG 5dUtDqPOQtMIPcC9Do uCPrAAltA249WLfpCh Q5KVDmxpLnH9TbUWGs aWdu OkG1s9I5Rf7nWy5dJj 2pEMsyGQ66HP99tJCa h5E3tUJ9D5RkOJBzap ztdmohhDO8NWHlVNYf aW47 pOChILsiDi7vf1V2h6 48IRPcPLXksY08Vr1j xFpeCNIpfIGQeO4uld gif9sncihvUtNcCKDz MDt0 SMd1APRkhYjyMxVsZB V9WgH8PCD3lRBdrX0h cVxgntuqpR3tPcj+Mz TvFICzfkS3T6VjFyt6 ZCBz xBdvWS2vkZVcMArpXb 0vdFxqaEzlLB6cLHGe whuyGEVvaC3sZFOfpQ SrrOxxEP4gWXRzmala b250 PvXgOKS0ARIilIVgO3 GlkR8cBpGrCKRjZZSk R8CooFWfYEudX153RI izVnZ5NPVhtxSnZ2Ny LWFs qNiwDzH5w6P2Xm1XUS 1FMQC9M2JxTey6LCTh xIniIE1paODzYCuuLk 1emHslyTmwDQ1mEZEo bjtw GJStiY4bBHWpcINpfN mqPY8fWVZagbian840 XvQqTUL8OYClpQVmE2 GwmH5jQsMbTCBdQSGq O3Rl dVKtLWibR216SNnzXp Y2MMNhivRkJ1VcRJXd gYakDpU7j4M3Su2VJJ wvdGQ+NH99oj69J5Bp Ymxl Xlp0HASaKUH0zMB5zV 0zBUNmNQess0C2gJP8 C9BwyiWxmo1ty6gkPY CjARdhV42wtELdb3V6 IGVt mKN2RZPexQleSiSmyN 93Oyc+NHSoqOtdn6Fy Zlyra4cku3mkwEv4Ga MwJSIgdmFsaWduPSJ0 b3Ai Oo49T16gUKahQINxPU KoSBSnIMLweFauzg9q xV6jPi6+ZSDevBD3oE G8eY7bTpDmYtL8PFft Z249 XzDplAOcFbtdy1bzt6 nluJe0YtObCVQifmFy bBbjVVO4e2VxQl81O9 RwpJoxj0QpHmw4pt51 dGQg z4J9sPP7F8UxWGYpdq ozrAPujBrfHJ1pEDNg yvsaPHIdyO1dILMvI5 t0NmEqNiN4VLhhG6Jp bnQ6 IGJvbGQgMTBwdCBUaW 8gwpgcs0bwmpdeAeBf LSZhFOx1EEm0THNtjS pdZlYzWAM1WeK4LJS5 aWNh zS0vnPaeziotuR2jPb c+XSy8o1vpqNHaIB5t jDL5RR45OO78wQDgx4 Q1vWD6F8NsMRKozxjb cmln sAC7IGDgYPFxdZ53Xn 0cnTneWo1bNYQjFJP9 PAIacAJbP6RhaA9zOi SyQFPeKERnB4EifJNs YWxp Y185TDmwVpG7BYAokb IoS8EkEWBpqAyhHmA4 x6F3Dk6OZR58WF75JO 55gFYuf5J8jDH4W9Sq ZGRp cehykooiuPJ8PAXiVU IpwC32Zh5dzVspBe2f YAPrKAD3IOOoeLMeW4 QctX9xYaWpQLZfWTVy O3Rl yLIbERfxB239KYazGr L2LWZpzfXvG5UgURMg zAjpKqT6b7G6Kt7AFu 86LH92OY54uVHhp5W8 bGU9 R3RqJVZkqdndvocxcF T7EMSyUDTuiK23Mo1e uKgzHf9hJYToIAR9DQ JlvVRcJ3EevT1cXzQx MDAw WEFpH9VojEEgQGzvE4 07NIybEpZ5HXLvbqWv S8HuQHJpeLisYnL4f2 I7Ru9ZMOidvuy9S8Nd Pjwv dHI+WK04DHFtAQ60fG ZttTSyy0didDa2BuNy LRGvRQN4wWfpIRkxl3 XhKGCaD79thGKkx6D3 IGNv bGx (more content not included)... [facility] Consent Formson 04-01-2021 Consent Forms [id number]-01-2021 Provider Orders [id number] Quick Testingon 2021 Result Positive [employer] Other HERPES SIMPLEX VIRUS 1/2 DNA PCRon 11-11-2020 HSV-1 DNA Negative Normal Negative [facility] Comment on above: Performed By: #### C BC #### [facility] [address] [place] [address] Sunshine Carlos HSV-2 DNA Positive Abnormal Negative [facility] Comment on above: Result Comment: This test was developed and its performance characteristics determined by [employer]. It has not been cleared or approved by the [place]. Food and Drug Administration. The FDA has determined that such clearance or approval is not necessary. This test is used for clinical purposes. It should not be regarded as investigational or research. Performed By: #### C BC #### [facility] [address] [place] [address] Sunshinevniita Carlos CULTURE URINEon 11-10-2020 CULTURE URINE Isolate 1 Streptococcus pyogenes >100,000 cfu/mL of ORGANISM 1 Streptococcus pyogenes ANTIBIOTIC M.I.C RX STATUS Benzylpenicillin <=0.06 S F Ampicillin <=0.25 S F Cefotaxime <=0.12 S F Ceftriaxone <=0.12 S F Levofloxacin 0.5 S F Erythromycin 4 R F Clindamycin <=0.25 S F Linezolid <=2 S F Vancomycin <=0.12 S F Tetracycline <=0.25 S F Normal [facility] Comment on above: Performed By: #### C BC #### [facility] [address] [place] [id number] Sunshine Carlos CHLAMYDIA/GONOCOCCUS TINA (SW AB/URINE/PAPon 11-09-2020 Chlamydia trachomatis, TINA Negative Normal Negative [facility] Comment on above: Performed By: #### C T/NGNA #### [facility] [address] [place] [address] Sunshine Carlos Neisseria gonorrhoeae, TINA Negative Normal Negative [facility] Comment on above: Performed By: #### C T/NGNA #### [facility] [address] [place] [address] Sunshine Carlos Covid-19 PCR ([facility])on 10-18 SARS-CoV-2 (COVID-19) RNA TINA+probe Ql (Unsp spec) Not detected Normal NOT DETECTED [facility] Comment on above: Result Comment: This test is not yet approved or cleared by the [place] FDA. When there are no FDA-approved or cleared tests available, and other criteria are met, FDA can make tests available under an emergency access mechanism called an Emergency Use Authorization (EUA). The EUA for this test is supported by the [place] of [employer] and Human Service's (HHS's) declaration [...] Performed By: #### C VDAGS, CVDTBH #### [facility] [address] [place] [address] Sunshine Breanna ER URINE PROFILEon Bilirubin Ql (U) Negative Normal NEGATIVE The [facility] Comment on above: Performed By: #### C BC #### [facility] [address] [place] [address] Sunshinevinita Carlos Clarity (U) CLEAR Normal CLEAR [facility] Comment on above: Performed By: #### C BC #### [facility] [address] [place] [address] Sunshine Carlos Color (U) LT. YELLOW Normal YELLOW [facility] Comment on above: Performed By: #### C BC #### [facility] [address] [place] [address] Sunshine Carlos ERUAHD A micrscopic examination will be performed if indicated. Normal [facility] Comment on above: Performed By: #### C BC #### [facility] [address] [place] [address] Sunshine Breanna Glucose Ql (U) Negative Normal NEGATIVE [facility] Comment on above: Performed By: #### C BC #### [facility] [address] [place] [address] Sunshine Breanna Hemoglobin Ql (U) LARGE Abnormal NEGATIVE [facility] Comment on above: Performed By: #### C BC #### [facility] [address] [place] [address] Sunshine Breanna Ketones Ql (U) Negative Normal NEGATIVE [facility] Comment on above: Performed By: #### C BC #### [facility] [address] [place] [address] Sunshine Breanna LEUKOCYTES Negative Normal NEGATIVE [facility] Comment on above: Performed By: #### C BC #### [facility] [address] [place] [address] Sunshine Breanna Nitrite Ql (U) Negative Normal NEGATIVE [facility] Comment on above: Performed By: #### C BC #### [facility] [address] [place] [address] Sunshine Breanna pH (U) 5.5 [pH] Normal 5-9 [facility] Comment on above: Performed By: #### C BC #### [facility] [address] [place] [address] Sunshine Breanna SPEC GRAVITY >=1.030 Abnormal 1.005-<=1.02 5 [facility] Comment on above: Performed By: #### C BC #### [facility] [address] [place] [address] Sunshine Breanna UA PROTEIN Negative Normal NEGATIVE/ TRACE The [facility] Comment on above: Performed By: #### C BC #### [facility] [address] [place] [address] Sunshine Breanna UR MICRO IND INDICATED Normal [facility] Comment on above: Performed By: #### C BC #### [facility] [address], [place] [address] Sunshine Carlos Urobilinogen Qn (U) 0.2 {Braden'U}/dL Normal 0.2 - 1. 0 [facility] Comment on above: Performed By: #### C BC #### [facility] [address] [place] [id number] Sunshine Carlos URon 11-08-2020 , QUAL Negative Normal NEGATIVE [facility] Comment on above: Performed By: #### C BC #### [facility] [address] [place], [place] [id number] Sunshine Carlos STREPT SCREENon 11-08-2020 STREP SCREEN A Positive Abnormal NEGATIVE [facility] Comment on above: Performed By: #### C BC #### [facility] [address] [place] [address] Sunshine Carlos SYMPTOMATIC COVID-19 ANTIGEN on 11-08-2020 EUA Statement SEE BELOW Normal [facility] Comment on above: Result Comment: This [...] is revoked sooner. Performed By: #### C VDAGOlamide CVDTB #### [facility] [address] [place], [place] [id number] Sunshine Carlos SARS-CoV-2 (COVID-19) RNA TINA+probe Ql (Unsp spec) Negative Normal NEGATIVE [facility] Comment on above: Result Comment: CONF IRMATION BY PCR PENDING PER CDC GUIDELINES/ SYMPTOMATIC PATIENT. Performed By: #### C VDAGS, CVDTBH #### [facility] [address] [id number] Sunshine Breanna URINE MICROSCOPIC ONLYon AMORPHOUS CRYSTALS FEW Normal [facility] Comment on above: Performed By: #### C BC #### [facility] [address] [id number] Sunshine Breanna BACTERIA SMALL Abnormal NONE SEEN The [facility] Comment on above: Performed By: #### C BC #### [facility] [address] [address] Sunshine Breanna Bacteria identified Cx Nom (U) INDICATED Normal [facility] Comment on above: Performed By: #### C BC #### [facility] Laboratory [address] [place], [place] [id number] Sunshine Breanna CAST NONE SEEN Normal NONE SEEN [facility] Comment on above: Performed By: #### C BC #### [facility] Laboratory [address] [place] [address] Sunshine Breanna Crystals LM Nom (Urine sed) SEEN Abnormal NONE SEEN [facility] Comment on above: Performed By: #### C BC #### [facility] Laboratory [address] [place], [place] [id number] Sunshine Breanna Epithelial cells LM Ql (Urine sed) MODERATE Abnormal NONE SEEN /RARE [facility] Comment on above: Performed By: #### C BC #### [facility] Laboratory [address] [place], [place] [id number] Sunshine Breanna MUCOUS MODERATE Abnormal NONE SEEN The [facility] Comment on above: Performed By: #### C BC #### [facility] Laboratory [address] [place] [address] Sunshine Breanna RBC 2-5 Abnormal 0-2 [facility] Comment on above: Performed By: #### C BC #### [facility] Laboratory [address] [place], [place] [id number] Sunshine Breanna WBC 5-10 Abnormal NONE SEEN The [facility] Comment on above: Performed By: #### C BC #### [facility] Laboratory [address] [place], [place] [id number] Sunshine Breanna US SINGLE QUAD RT UPPERon [...] by: EDMUNDO GUZMAN Date: 2020-08-19 15:23 Normal The [facility] AMYLASEon 08-17-2020 Amylase [Catalytic activity/Vol] 49 U/L Normal 31-110 [facility] Comment on above: Performed By: #### C BC #### [facility] Laboratory [address] [place] [address] Sunshine Breanna CBC AUTO DIFFon 08-17-2020 BASO # 0.0 103/ul Normal 0.0-0.1 [facility] Comment on above: Performed By: #### C BC #### [facility] Laboratory [address] [place], [place] [id number] Sunshine Breanna Basophils/100 WBC (Bld) 0.6 % Normal 0.2-2.0 [facility] Comment on above: Performed By: #### C BC #### [facility] Laboratory [address] [place] [address] Sunshine Breanna EO # 0.1 103/ul Normal 0.0-0.7 [facility] Comment on above: Performed By: #### C BC #### [facility] Laboratory [address] [place] [address] Sunshine Breanna Eosinophils/100 WBC (Bld) 1.3 % Normal 0.9-7.0 [facility] Comment on above: Performed By: #### C BC #### [facility] Laboratory [address] [place] [address] Sunshine Breanna Erythrocyte distribution width (RBC) [Ratio] 13.0 % Normal 11.0-15.0 [facility] Comment on above: Performed By: #### C BC #### [facility] Laboratory [address] [place] [address] Sunshine Breanna Hematocrit (Bld) [Volume fraction] 39.1 % Normal 36.0-48.0 [facility] Comment on above: Performed By: #### C BC #### [facility] Laboratory [address] [place] [address] Sunshine Breanna Hemoglobin (Bld) [Mass/Vol] 13.2 g/dL Normal 12.0-16.0 [facility] Comment on above: Performed By: #### C BC #### [facility] Laboratory [address] [place] [address] Sunshine Breanna IG # 0.01 10e3/ul Normal 0.00-0.03 [facility] Comment on above: Performed By: #### C BC #### [facility] Laboratory [address] [place] [address] Sunshine Breanna IG % 0.1 % Normal 0.0-0.5 [facility] Comment on above: Performed By: #### C BC #### [facility] Laboratory [address] [place] [address] Sunshine Breanna LYMPH # 2.4 103/ul Normal 1.2-3.8 [facility] Comment on above: Performed By: #### C BC #### [facility] Laboratory [address] [place] [address] Sunshine Breanna Lymphocytes/100 WBC (Bld) 33.5 % Normal 20.5-60.0 [facility] Comment on above: Performed By: #### C BC #### [facility] Laboratory [address] [place] [address] Sunshine Breanna MANUAL DIFF REQ NO Normal [facility] Comment on above: Performed By: #### C BC #### [facility] Laboratory [address] [place], [place] [id number] Sunshine Carlos MCH (RBC) [Entitic mass] 30.6 pg Normal 26.7-34.0 [facility] Comment on above: Performed By: #### C BC #### [facility] Laboratory [address] [place], [place] [id number] Sunshine Carlos MCHC (RBC) [Mass/Vol] 33.8 g/dL Normal 29.9-35.2 [facility] Comment on above: Performed By: #### C BC #### [facility] Laboratory [address] [place] [address] Sunshine Carlos MCV (RBC) [Entitic vol] 90.7 fL Normal 81.0-99.0 [facility] Comment on above: Performed By: #### C BC #### [facility] Laboratory [address] [place] [address] Sunshine Carlos MONO # 0.3 103/ul Normal 0.3-0.8 [facility] Comment on above: Performed By: #### C BC #### [facility] Laboratory [address] [place] [address] Sunshine Carlos Monocytes/100 WBC (Bld) 4.1 % Normal 1.7-12.0 [facility] Comment on above: Performed By: #### C BC #### [facility] Laboratory [address] [place] [address] Sunshine Carlos NEUT # 4.2 103/ul Normal 1.4-6.5 [facility] Comment on above: Performed By: #### C BC #### [facility] Laboratory [address] [place], [place] [id number] Sunshine Carlos Neutrophils/100 WBC (Bld) 60.4 % Normal 43.0-75.0 [facility] Comment on above: Performed By: #### C BC #### [facility] Laboratory [address] [place] [address] Sunshine Breanna Platelet mean volume (Bld) [Entitic vol] 10.7 fL Normal 9.5-13.5 [facility] Comment on above: Performed By: #### C BC #### [facility] Laboratory [address] [place] [address] Sunshine Breanna PLT 321 103/ul Normal 150-450 [facility] Comment on above: Performed By: #### C BC #### [facility] Laboratory [address] [place] [address] Sunshine Breanna RBC 4.31 106/ul Normal 4.20-5.40 [facility] Comment on above: Performed By: #### C BC #### [facility] Laboratory [address] [place] [address] Sunshine Breanna WBC 7.0 103/ul Normal 4.0-11.0 [facility] Comment on above: Performed By: #### C BC #### [facility] Laboratory [address] [place] [address] Sunshinevinita Carlos LIPASEon 08-17-2020 Lipase [Catalytic activity/Vol] 97.0 U/L Normal 23.0-300.0 [facility] Comment on above: Performed By: #### T CANDE, CMP, LIPA, CHARLIE #### [facility] Laboratory [address] [place] [address] Sunshine Carlos PROF 14(COMP METB)on 021 Albumin [Mass/Vol] 3.5 g/dL Normal 3.5-5.0 [facility] Comment on above: Performed By: #### T CANDE, CMP, LIPA, CHARLIE #### [facility] Laboratory [address] [place], [place] [id number] Sunshinevinita Carlos Albumin/Globulin [Mass ratio] 0.8 {ratio} Normal [facility] Comment on above: Performed By: #### T CANDE, CMP, LIPA, CHARLIE #### [facility] Laboratory [address] [place] [address] Sunshine Breanna ALP [Catalytic activity/Vol] 64 U/L Normal 38-126 [facility] Comment on above: Performed By: #### T CANDE, CMP, LIPA, CHRALIE #### [facility] Laboratory [address] [place], [place] [address] Sunshine Breanna ALT [Catalytic activity/Vol] 12 U/L Normal 9-52 [facility] Comment on above: Performed By: #### T CANDE, CMP, LIPA, CHARLIE #### [facility] Laboratory [address] [address] Sunshine Breanna Anion gap [Moles/Vol] 14.9 mmol/L Normal Th e [facility] Comment on above: Performed By: #### T CANDE, CMP, LIPA, CHARLIE #### [facility] Laboratory [address] [address] Sunshine Breanna AST [Catalytic activity/Vol] 9 U/L Critically low 14-36 [facility] Comment on above: Performed By: #### T CANDE, CMP, LIPA, CHARLIE #### [facility] Laboratory [address] [place] [address] Sunshine Breanna Bilirubin [Mass/Vol] 0.2 mg/dL Normal 0.2-1.3 [facility] Comment on above: Performed By: #### T CANDE, CMP, LIPA, CHARLIE #### [facility] Laboratory [address] [place] [address] Sunshine Breanna Calcium [Mass/Vol] 8.9 mg/dL Normal 8.4-10.2 [facility] Comment on above: Performed By: #### T CANDE, CMP, LIPA, CHARLIE #### [facility] Laboratory [address] [place] [address] Sunshine Breanna Chloride [Moles/Vol] 108 mmol/L Critically high 98-107 [facility] Comment on above: Performed By: #### T CANDE, CMP, LIPA, CHARLIE #### [facility] Laboratory [address] [place] [address] Sunshine Breanna CO2 [Moles/Vol] 23.8 mmol/L Normal 22.0-30.0 The [facility] Comment on above: Performed By: #### T CANDE, CMP, LIPA, CHARLIE #### [facility] Laboratory [address] [place] [address] Sunshine Breanna Creatinine [Mass/Vol] 0.81 mg/dL Normal 0.52-1.04 [facility] Comment on above: Performed By: #### T CANDE, CMP, LIPA, CHARLIE #### [facility] Laboratory [address] [id number] Sunshine Breanna EGFR-AF EQUATORIAL GUINEAN >60 Normal >=60 [facility] Comment on above: Performed By: #### T CANDE, CMP, LIPA, CHARLIE #### [facility] Laboratory [address] [address] Sunshine Breanna EGFR-NON AF EQUATORIAL GUINEAN >60 Normal >=60 [facility] Comment on above: Performed By: #### T CANDE, CMP, LIPA, CHARLIE #### [facility] Laboratory [address] [place] [address] Sunshine Breanna Globulin (S) [Mass/Vol] 4.4 g/dL Normal [facility] Comment on above: Performed By: #### T CANDE, CMP, LIPA, CHARLIE #### [facility] Laboratory [address] [place] [address] Sunshine Breanna Glucose [Mass/Vol] 92 mg/dL Normal 74-106 [facility] Comment on above: Performed By: #### T CANDE, CMP, LIPA, CHARLIE #### [facility] Laboratory [address] [place] [address] Sunshine Breanna Potassium [Moles/Vol] 3.7 mmol/L Normal 3.4-5.0 [facility] Comment on above: Performed By: #### T CANDE, CMP, LIPA, CHARLIE #### [facility] Laboratory [address] [place] [address] Sunshine Breanna Protein [Mass/Vol] 7.9 g/dL Normal 6.1-8.2 [facility] Comment on above: Performed By: #### T CANDE, CMP, LIPA, CHARLIE #### [facility] Laboratory [address] [place] [address] Sunshine Breanna Sodium [Moles/Vol] 143 mmol/L Normal 137-145 [facility] Comment on above: Performed By: #### T CANDE, CMP, LIPA, CHARLIE #### [facility] Laboratory [address] [address] Sunshine Breanna Urea nitrogen [Mass/Vol] 14.0 mg/dL Normal 7.0-17.0 [facility] Comment on above: Performed By: #### T CANDE, CMP, LIPA, CHARLIE #### [facility] Laboratory [address] [place] [address] Sunshine Breanna Urea nitrogen/Creatinine [Mass ratio] 17.3 mg/mg Normal [facility] Comment on above: Performed By: #### T CANDE, CMP, LIPA, CHARLIE #### [facility] Laboratory [address] [place] [address] Sunshine Breanna PREG QUANT HCGon 06-02-2020 HCG QUANT 14 mIU/mL Normal [facility] Comment on above: Performed By: #### C IVELISSE, CVDTB #### [facility] Laboratory [address] [place] [address] Sunshine Breanna HCG RANGE SEE BELOW Normal [facility] Comment on above: Result Comment: 5-50 0-1 WEEK 40-300 1-2 WEEKS 100-1,000 2-3 WEEKS 500-6,000 3-4 WEEKS 5,000-200,000 1-2 MONTHS 10,000-100,000 2-3 MONTHS 3,000-50,000 2ND TRIMESTER 1,000-50,000 3RD TRIMESTER Performed By: #### C IVELISSE, CVDTB #### [facility] Laboratory [address] [place] [address] Sunshine Breanna PREG QUANT HCGon 05-20-2020 HCG QUANT 13 mIU/mL Normal [facility] Comment on above: Performed By: #### C BC #### [facility] Laboratory [address] [place] [address] Sunshine Breanna HCG RANGE SEE BELOW Normal [facility] Comment on above: Result Comment: 5-50 0-1 WEEK 40-300 1-2 WEEKS 100-1,000 2-3 WEEKS 500-6,000 3-4 WEEKS 5,000-200,000 1-2 MONTHS 10,000-100,000 2-3 MONTHS 3,000-50,000 2ND TRIMESTER 1,000-50,000 3RD TRIMESTER Performed By: #### C BC #### [facility] Laboratory [address] [place] [address] Sunshine Breanna PREG QUANT HCGon 05-06-2020 HCG QUANT 20 mIU/mL Normal [facility] Comment on above: Performed By: #### P REGQNT #### [facility] Laboratory [address] [place] [address] Sunshine Breanna HCG RANGE SEE BELOW Normal [facility] Comment on above: Result Comment: 5-50 0-1 WEEK 40-300 1-2 WEEKS 100-1,000 2-3 WEEKS 500-6,000 3-4 WEEKS 5,000-200,000 1-2 MONTHS 10,000-100,000 2-3 MONTHS 3,000-50,000 2ND TRIMESTER 1,000-50,000 3RD TRIMESTER Performed By: #### P REGQNT #### [facility] Laboratory [address] [place] [address] Sunshine Breanna PREG QUANT HCGon 04-29-2020 HCG QUANT 21 mIU/mL Normal The [facility] Comment on above: Performed By: #### P REGQNT #### [facility] Laboratory [address] [place] [address] Sunshine Breanna HCG RANGE SEE BELOW Normal [facility] Comment on above: Result Comment: 5-50 0-1 WEEK 40-300 1-2 WEEKS 100-1,000 2-3 WEEKS 500-6,000 3-4 WEEKS 5,000-200,000 1-2 MONTHS 10,000-100,000 2-3 MONTHS 3,000-50,000 2ND TRIMESTER 1,000-50,000 3RD TRIMESTER Performed By: #### P REGQNT #### [facility] Laboratory [address] [place] [address] Sunshine Breanna ABO AND RH TYPEon 04-22-2020 ABO and Rh group Nom (Bld) ABO Rh Typing O Rh Positive Normal [facility] Comment on above: Performed By: #### C BC #### [facility] Laboratory [address] [place] [address] Sunshine Breanna PREG QUANT HCGon 04-22-2020 HCG QUANT 37 mIU/mL Normal [facility] Comment on above: Performed By: #### P REGQNT #### [facility] Laboratory [address] [place] [address] Sunshine Carlos HCG RANGE SEE BELOW Normal [facility] Comment on above: Result Comment: 5-50 0-1 WEEK 40-300 1-2 WEEKS 100-1,000 2-3 WEEKS 500-6,000 3-4 WEEKS 5,000-200,000 1-2 MONTHS 10,000-100,000 2-3 MONTHS 3,000-50,000 2ND TRIMESTER 1,000-50,000 3RD TRIMESTER Performed By: #### P REGQNT #### [facility] Laboratory [address] [place], [place] [address] Sunshine Carlos ED Note-Physicianon 10-16-19 20 ED Note-Physician [id number]:[id number] Normal [facility] Chlam and gonorrhea: Amp, Ur ine -UHEon 01-12-2017 Chlam and gonorrhea: Amp, Urine -UHE Negative Negative THIS TEST WAS PERFORMED USING A REAL TIME PCR ASSAY. Normal [facility] Comment on above: Performed By: #### R NABU ####[address] [address] Beta HCG (Qual), Urine - MCH on 01-09-2017 HCG.beta subunit ( test) Ql (U) Positive Abnormal Negative [facility] Comment on above: Performed By: #### H CGUMD, UR1MD ####[address] [place], [place] [address] Beta HCG, quant, S - MCHon 1 Beta HCG, quant, S - MCH 99399.0 mIU/mL Normal [facility] Comment on above: Result Comment: FEMA LE GESTATIONAL AGERESULTS <10 ARE CONSIDERED NEGATIVE4 WEEKS 4700-734767 mIU/mL5 WEEKS 3660-507695 mIU/mL6 WEEKS 08624-078349 mIU/mL7 WEEKS 98879-439438 mIU/mL8 WEEKS 82866-982996 mIU/mL9 WEEKS 93218-053215 mIU/mL10 WEEKS 30470-447507 mIU/mL11 WEEKS 6480-207477 mIU/ml12 WEEKS 6740-868456 mIU/mL13-27 WEEKS 8200-640758 mIU/mL28-40 WEEKS 2320-63370 mIU/mL Performed By: #### C BCMD, PTPTMD, TYSCMD, QHCGMD ####[address] [address] CBC, ELECTRONIC DIFF, PLATEL ET - MCHon 01-09-2017 Absolute Basophil 0.0 K/uL Normal 0.0-0.23 [facility] Comment on above: Performed By: #### C BCMD, PTPTMD, TYSCMD, QHCGMD ####[address] [address] Absolute Grans 5.9 K/uL Normal 1.8-7.7 [facility] Comment on above: Performed By: #### C BCMD, PTPTMD, TYSCMD, QHCGMD ####[address] [address] Basophils/100 WBC Auto (Bld) 0.5 % Normal 0-2 [facility] Comment on above: Performed By: #### C BCMD, PTPTMD, TYSCMD, QHCGMD ####[address] [address] Eosinophils 0.1 10*3/uL Normal 0.0-0.7 [facility] Comment on above: Performed By: #### C BCMD, PTPTMD, TYSCMD, QHCGMD ####[address] [address] Eosinophils/100 leukocytes 1.0 % Normal 0-5.0 [facility] Comment on above: Performed By: #### C BCMD, PTPTMD, TYSCMD, QHCGMD ####[address] [address] Erythrocytes (RBC) 13.8 % Normal 11.5-14.5 [facility] Comment on above: Performed By: #### C BCMD, PTPTMD, TYSCMD, QHCGMD ####[address] [address] Grans Electronic 64.6 % Normal 50-70 [facility] Comment on above: Performed By: #### C BCMD, PTPTMD, TYSCMD, QHCGMD ####[address], [place] [address] Hematocrit (HCT) 34.5 % Low 35.0-45.0 [facility] Comment on above: Performed By: #### C BCMD, PTPTMD, TYSCMD, QHCGMD ####[address] [place], [place] [address] Hemoglobin mass conc (Bld) 31.0 pg Normal 27.0-34.0 [facility] Comment on above: Performed By: #### C BCMD, PTPTMD, TYSCMD, QHCGMD ####[address] [place], [place] [address] Hemoglobin mass conc (Bld) 11.7 g/dL Normal 11.7-15.5 [facility] Comment on above: Performed By: #### C BCMD, PTPTMD, TYSCMD, QHCGMD ####[address] [place], [place] [address] Lymphocytes 2.6 10*3/uL Normal 1.0-4.8 [facility] Comment on above: Performed By: #### C BCMD, PTPTMD, TYSCMD, QHCGMD ####[address] [place], [place] [address] Lymphocytes/100 leukocytes 28.7 % Normal 22.0-44.0 [facility] Comment on above: Performed By: #### C BCMD, PTPTMD, TYSCMD, QHCGMD ####[address] [address] MCH 3.78 M/uL Low 3.8-5.1 [facility] Comment on above: Performed By: #### C BCMD, PTPTMD, TYSCMD, QHCGMD ####[address] [address] MCH 9.1 K/uL Normal 4.5-11.0 [facility] Comment on above: Performed By: #### C BCMD, PTPTMD, TYSCMD, QHCGMD ####[address] [place], [place] [address] MCV 91.0 fL Normal 81.0-100.0 [facility] Comment on above: Performed By: #### C BCMD, PTPTMD, TYSCMD, QHCGMD ####[address] [place], [place] [address] Monocytes 0.5 10*3/uL Normal 0.0-0.9 [facility] Comment on above: Performed By: #### C BCMD, PTPTMD, TYSCMD, QHCGMD ####[facility] [place], [place] [address] Monocytes/100 leukocytes 5.2 % Normal 0-7.0 [facility] Comment on above: Performed By: #### C BCMD, PTPTMD, TYSCMD, QHCGMD ####[facility] [place], [place] [address] Platelet mean volume (PMV) 8.3 fL Normal 7.5-11.2 [facility] Comment on above: Performed By: #### C BCMD, PTPTMD, TYSCMD, QHCGMD ####[address] [place], [place] [address] Platelets 281 10*3/uL Normal 150-400 [facility] Comment on above: Performed By: #### C BCMD, PTPTMD, TYSCMD, QHCGMD ####[address] [place], [place] [address] ED PROVIDERon 01-09-2017 [facility] CAC NOTES Normal [facility] NOTES Normal [facility] OSUHIMCACCODINGOPEDon 2016 [facility] CAC Coding OP/ED Report Normal [facility] OSUHIMCACENCSUMon 01-09-2017 [facility] CAC Encounter Summary Report Normal [facility] PT*PTT - MCHon 01-09-2017 aPTT 33 s Normal 24.6-35.9 [facility] Comment on above: Performed By: #### C BCMD, PTPTMD, TYSCMD, QHCGMD ####[facility] [place], [place] [address] INR Coag RelTime (Bld) 1.1 {INR} Normal 0.87-1.15 [facility] Comment on above: Performed By: #### C BCMD, PTPTMD, TYSCMD, QHCGMD ####[facility] [place], [place] [address] MCH 13.3 sec Normal 11.5-14.3 [facility] Comment on above: Performed By: #### C BCMD, PTPTMD, TYSCMD, QHCGMD ####[address] [place], [place] [address] TYPE AND SCREEN - MCHon 12-18 MCH ABO/RH(D) - MCH: O POSITIVE ANTIBODY SCREEN - MCH: Negative Normal [facility] Comment on above: Performed By: #### C BCMD, PTPTMD, TYSCMD, QHCGMD ####[address] [place], [place] [address] [facility] COM[facility] URINE None Normal [facility] Comment on above: Performed By: #### H CGUMD, UR1MD ####[address] [place], [place] [address] Squamous Epithelial 2+ /HPF Normal [facility] Comment on above: Performed By: #### H CGUMD, UR1MD ####[address] [place], [place] [address] Urine, bacteria in sediment Absent Normal Absent [facility] Comment on above: Performed By: #### H CGUMD, UR1MD ####[address] [place], [place] [address] Urine, erythrocytes in sediment by area 0-2 Normal 0-2 [facility] Comment on above: Performed By: #### H CGUMD, UR1MD ####[address] [place], [place] [address] Urine, leukocytes in sedmiment 0-5 Normal 0-5 [facility] Comment on above: Performed By: #### H CGUMD, UR1MD ####[address] [place], [place] [address] Bilirubin Urine Negative Normal Negative [facility] Comment on above: Performed By: #### H CGUMD, UR1MD ####[address] [place], [place] [address] Blood Urine Moderate Abnormal Negative [facility] Comment on above: Performed By: #### H CGUMD, UR1MD ####[place] [address] [place], [place] [address] Nitrites Urine Negative Normal Negative [facility] Comment on above: Performed By: #### H CGUMD, UR1MD ####[place] [address] [place], [place] [address] Protein Urine Negative Normal Negative [facility] Comment on above: Performed By: #### H CGUMD, UR1MD ####[address] [place], [place] [address] Specific [place] urine 1.020 Normal 1.001-1.035 [facility] Comment on above: Performed By: #### H CGUMD, UR1MD ####[address] [place], [place] [address] Urine, appearance Clear Normal Clear [facility] Comment on above: Performed By: #### H CGUMD, UR1MD ####[address] [place], [place] [address] Urine, color Yellow Normal YEL,DKYEL [facility] Comment on above: Performed By: #### H CGUMD, UR1MD ####[place] [address] [place], [place] [address] Urine, glucose presence Negative Normal Negative [facility] Comment on above: Performed By: #### H CGUMD, UR1MD ####[address] [place], [place] [address] Urine, ketones presence Negative Normal Negative [facility] Comment on above: Performed By: #### H CGUMD, UR1MD ####[place] [address] [place], [place] [address] Urine, leukocyte esterase presence Negative Normal Negative [facility] Comment on above: Performed By: #### H CGUMD, UR1MD ####[address] [place], [place] [address] Urine, pH 6.0 [pH] Normal 5.0-7.0 [facility] Comment on above: Performed By: #### H CGUMD, UR1MD ####[address] [place], [place] [address] Urobilinogen urine 0.2 EU/dL Normal <2.0 [facility] Comment on above: Performed By: #### H CGUMD, UR1MD ####[place] [address] [place], [place] [address] Vital Signs Date Time Vital Sign Value Performing Clinician Facility 03-29-2021 11:15-0500 Body height 172.72 cm Arminda Holt Other [facility] 03-29-2021 11:15-0500 Body mass index (BMI) [Ratio] 36.49 kg/m2 Arminda Holt Other [facility] Other 03-29-2021 11:15-0500 Body temperature 97 [degF] Arminda Holt Other [facility] Other 03-29-2021 11:15-0500 Body weight 108.86 kg Arminda Holt Other [facility] Other 03-29-2021 11:15-0500 SaO2% (BldA) [Mass fraction] 99 % Arminda Holt Other [facility] Other Encounters Encounter Date Encounter Type Care Provider Facility Start: 08-22-2023 End: 08-22-2023 ambulatory DMITRIY BOWIE Not Available Start: 07-26-2023 End: 07-26-2023 ambulatory DMITRIY BOWIE Not Available Start: 03-29-2021 End: 03-29-2021 ambulatory Arminda Holt Other [facility] Start: 03-29-2021 Office outpatient ne w 20 minutes Arminda Holt [facility] Start: 11-08-2020 End: 11-08-2020 ambulatory LISA BERGMAN Facility:[facility] Start: 08-19-2020 End: 08-20-[address] HAMMAD NIEVES Facility:[facility] Start: 08-17-2020 End: 08-17-[address] HAMMAD NIEVES Facility:[facility] Start: 06-02-2020 End: 06-03-2020 ambulatory HERBERT PACHECO Facility:[facility] Start: 05-20-2020 End: 05-21-[address] NONE LISTED REQUEST Facility:[facility] Start: 05-06-2020 End: 05-07-2020 ambulatory HERBERT PACHECO Facility:[facility] Start: 04-29-2020 End: 04-30-2020 ambulatory HERBERT PACHECO Facility:[facility] Start: 04-22-2020 End: 04-23-2020 ambulatory HERBERT PACHECO Facility:[facility] Start: 01-09-2017 End: 01-09-2017 Emergency department patient visit SELF SELF [facility] Payers Date Payer Category Payer Unknown [id number] 2017 Unknown [id number] 1989 Unknown [id number] 2.16.84 [id number] 1989 Unknown [id number] 2.16.84 [id number] 1989 Unknown [id number] 2.16.84 0.1.588823.3.579.2.593 1989 Unknown [id number] 2.16.84 0.1.493952.3.579.2.593 1989 Unknown [id number] 2.16.84 0.1.186480.3.579.2.593 1989 Unknown [id number] 2.16.84 0.1.321956.3.579.2.593 1989 Unknown [id number] 2.16.84 0.1.878671.3.579.2.593 1989 Unknown [id number] 2.16.84 0.1.152141.3.579.2.593 1989 Unknown [id number] 2.16.84 0.1.152893.3.579.2.1259 1989 Unknown [id number] 2.16.84 0.1.514870.3.579.2.1259 1959 Private Health Insurance [id number] 1960 Self-pay [id number] Unknown [id number] . [id number] Social History Date Type Detail Facility Sex Assigned At [facility] Other Evaluation note 03-29-2021 Note Date & [...] Patient care instructions given in writting by [facility] Care At Home document. [facility] Other Summary Purpose Family History No Family [...] section and content) DATE CREATED AUTHOR 09/11/2017 [facility] DATE CREATED AUTHOR AUTHOR'S ORGANIZ ATION 10/18/2019 [facility] DATE CREATED AUTHOR AUTHOR'S ORGANIZ ATION 11/24/2020 [facility] DATE CREATED AUTHOR AUTHOR'S ORGANIZ ATION 04/08/2021 [facility] DATE CREATED AUTHOR AUTHOR'S ORGANIZ ATION 04/18/2021 [facility] DATE CREATED AUTHOR AUTHOR'S ORGANIZ ATION 06/24/2021 [facility] DATE CREATED AUTHOR AUTHOR'S ORGANIZ ATION 08/23/2023 [facility] [place] d[facility] Specialists EPIC REASON FOR VISIT [...] BE BASED ON THE PRIMARY CLINICAL RECORDS. [facility] [employer] [facility]. provides no warranty or guarantee of the accuracy or completeness of information in this document.
[2023-09-27 17:10] LABS: Age Gdln ACOG Testing Note (.); HPV Aptima Negative (Negative); IGP, Aptima HPV, rfx 16/18,45 Note (.)
== END 2023-09-24 20:58 | disposition home or self-care (01) ==
LOC: LAB 20:57
PROVIDERS: Visit Provider Obstetrics & Gynecology
DX: Z01.419 Encounter for gynecological examination (general) (routine) without abnormal findings (principal)
CPT/HCPCS: 88175

== ENCOUNTER 2023-12-03 09:06 | Outpatient (OUT) | payer BC, SELFPAY ==
--- OUTSIDE RECORDS SUMMARY | 2023-12-03 09:29 | XMS_ITS | CCD ---
Author Organization [facility] Care Team Providers Care Metal Patternmaker Name Role Phone SELF, SELF Unavailable Unavailable MIGUEL GAMBOA Unavailable Unavailable EZEQUIEL, DR CUEVA Consulting Unavailable EZEQUIEL, DR CUEVA Admitting Unavailable EZEQUIEL, DR CUEVA Attending Unavailable REQUEST, NONE LISTED Primary Care Unavaila Edmundo Archer Consulting Unavailable JUNIOR, HERBERT Consulting Unavailable JUNIOR, HERBERT Admitting Unavailable REQUEST, NONE LISTED Primary Care Unavaila dennis PACHECO, HERBERT Attending Unavailable JUNIOR, HERBERT Consulting Unavailable JUNIOR, HERBERT Admitting Unavailable REQUEST, NONE LISTED Primary Care Unavaila dennis PACHECO, HERBERT Attending Unavailable JUNIOR, HERBERT Consulting Unavailable REQUEST, NONE LISTED Primary Care Unavaila ble JUNIOR, HERBERT Admitting Unavailable JUNIOR, HERBERT Attending Unavailable REQUEST, NONE LISTED Primary Care Unavaila dennis PACHECO, HERBERT Consulting Unavailable JUNIOR, HERBERT Admitting Unavailable JUNIOR, HERBERT Attending Unavailable EZEQUIEL, DR CUEVA Admitting Unavailable HAY, DR CUEVA Attending Unavailable HAY, DR CUEVA Consulting Unavailable REQUEST, NONE LISTED Primary Care Unavaila dennis BERGMAN, LISA Admitting Unavailable REQUEST, NONE LISTED Primary Care Unavaila dennis BERGMAN, LISA Attending Unavailable PACHECO, LISA Consulting Unavailable JUNIOR, HERBERT Consulting Unavailable REQUEST, NONE LISTED Primary Care Unavaila dennis PACHECO, HERBERT Admitting Unavailable JUNIOR, HERBERT Attending Unavailable Arminda Holt Unavailable DMITRIY BOWIE Attending Unavailable DMITRIY BOWIE Attending Unavailable CHARLIE GUZMAN Attending Unavailable DMITRIY BOWIE Attending Unavailable MACY BABCOCK Attending Unavailable FLORO, LYNNETTE Referring Unavailable FLORO, LYNNETTE Primary Care Unavailable DMITRIY BOWIE Referring Unavailable FLORO, LYNNETTE Primary Care Unavailable AZEBDMITRIY MCCANN R Referring Unavailable FLORO, LYNNETTE Primary Care Unavailable Medications Current Medications Medication Drug Class(es) Dates Sig (Normalized) Sig (Original) [id number] 200 actuat albuterol 0.09 mg/actuat metered dose inhaler (1 source) beta2-Adrenergic Agonist Start: 03-29-2021 take 2 puff(s) by inhalation every four hours as needed Albuterol Sulfate HFA 108 (90 Base) MCG/ACT 2 puffs as needed Inhalation every 4 hrs Mar, Active Pre- (1 source) Pre-Marlene Active Problems Active Problems Problem Classification Problem Date Documented Date Episodic/Chronic Abdominal pain (4 sources) Right upper quadrant pain; Translations: [RIGHT UPPER QUADRANT PAIN] Onset: 08-19-2020 Episodic Biliary tract disease (1 source) Other cholelithiasis without obstruction; Translations: [OTH CHOLELITHIASIS W/O OBSTRUCTION] Onset: 08-27-2020 Episodic Menstrual disorders (4 sources) Secondary amenorrhea; Translations: [SECONDARY AMENORRHEA] Onset: 06-02-2020 Chronic Other complications of (1 source) Obesity complicating , unspecified trimester; Translations: [Obesity complicating , unspecified trimester] Onset: 10-25-2023 Chronic Other complications of (1 source) Supervision of high risk , unspecified, unspecified trimester; Translations: [Supervision of high risk , unspecified, unspecified trimester] Onset: 10-25-2023 Episodic Other screening for suspected conditions (not mental disorders or infectious disease) (3 sources) Encounter for other screening follow-up; Translations: [Encounter for other specified screening] Onset: 10-25-2023 Episodic Other upper respiratory infections (5 sources) Acute pharyngitis, unspecified; Translations: [Acute upper respiratory infection, unspecified] Onset: 11-08-2020 Episodic Polyhydramnios and other problems of amniotic cavity (1 source) Polyhydramnios, unspecified trimester, not applicable or unspecified; Translations: [Polyhydramnios, unspecified trimester, not applicable or unspecified] Onset: 11-22-2023 Episodic Previous (1 source) Maternal care for unspecified type scar from previous delivery; Translations: [Maternal care for unspecified type scar from previous delivery] Onset: 10-25-2023 Episodic Residual codes; unclassified (1 source) 23 weeks gestation of ; Translations: [23 weeks gestation of ] Onset: 10-25-2023 Episodic Screening and history of mental health and substance abuse codes (1 source) Personal history of nicotine dependence; Translations: [PERSONAL HISTORY OF NICOTINE DEPEND] Onset: 11-24-2020 Episodic Substance-related disorders (2 sources) Drug use complicating , unspecified trimester; Translations: [Cannabis use, unspecified, uncomplicated] Onset: 10-25-2023 Episodic Umbilical cord complication (1 source) Vasa previa Onset: 10-25-2023 Episodic Unclassified (1 source) Hemorrhage in early [...] 03-29-2021 Episodic Other aftercare (1 source) Other intermediate designer (current) drug therapy; Translations: [OTH TREE CHIPPER CURRENT DRUG THERAPY] Onset: 08-19-2020 Episodic Other and delivery including normal (4 sources) Encounter for test, result positive; Translations: [ENC TEST RESULT POSITIVE] Onset: 05-20-2020 Episodic Residual codes; unclassified (1 source) History of uterine scar from previous surgery; Translations: [History of uterine scar from previous surgery] Onset: 08-28-2021 Episodic Unclassified (1 source) Hemorrhage in early , unspecified; Translations: [Hemorrhage in early , unspecified] Onset: 01-09-2017 Viral infection (1 source) COVID-19 Onset: 03-29-2021 Resolved: 03-29-2021 Results Test Name Value Interpretation Reference Range Facility Complete Blood Count Auto Di ffon 06-14-2021 Basophils (Bld) [#/Vol] 0.0 10*3/uL Normal 0.0-0.2 [facility] Comment on above: Result Comment: PERF ORMED BY: [place] [address] PATHOLOGIST OUTREACH WORKER STEPHANIE ROACH M.D. Performed By: #### C BC #### [address] Basophils/100 WBC (Bld) 0.6 % Normal . [facility] Comment on above: Performed By: #### C BC #### [address] Eosinophils (Bld) [#/Vol] 0.1 10*3/uL Normal 0.0-0.45 [facility] Comment on above: Performed By: #### C BC #### [address] Eosinophils/100 WBC (Bld) 1.7 % Normal . [facility] Comment on above: Performed By: #### C BC #### [address] Erythrocyte distribution width (RBC) [Ratio] 13.5 % Normal 11.9-15.3 [facility] Comment on above: Performed By: #### C BC #### [address] Hematocrit (Bld) [Volume fraction] 30.6 % Low 34.0-46.4 [facility] Comment on above: Performed By: #### C BC #### [address] Hemoglobin (Bld) [Mass/Vol] 10.2 g/dL Low 11.8-15.4 [facility] Comment on above: Performed By: #### C BC #### [address] Lymphocytes (Bld) [#/Vol] 2.1 10*3/uL Normal 1.00-4.8 [facility] Comment on above: Performed By: #### C BC #### [address] Lymphocytes/100 WBC (Bld) 24.1 % Normal . [facility] Comment on above: Performed By: #### C BC #### [facility] [address] MCH (RBC) [Entitic mass] 31.4 pg Normal 24.7-34.3 [facility] Comment on above: Performed By: #### C BC #### [facility] [address] MCV (RBC) [Entitic vol] 94.0 fL Normal 80-100 [facility] Comment on above: Performed By: #### C BC #### [facility] [address] Mean Corpuscular HGB Conc 33.4 g/dL Normal 32.0-35.0 [facility] Comment on above: Performed By: #### C BC #### [facility] [address] [place] [address] [place] Monocytes (Bld) [#/Vol] 0.4 10*3/uL Normal 0.0-0.8 [facility] Comment on above: Performed By: #### C BC #### [facility] [address] [place] [address] [place] Monocytes/100 WBC (Bld) 4.9 % Normal . [facility] Comment on above: Performed By: #### C BC #### [facility] [address] Neutrophils (Bld) [#/Vol] 5.9 10*3/uL Normal 1.8-7.7 [facility] Comment on above: Performed By: #### C BC #### [facility] [address] [place] [id number] [place] Neutrophils/100 WBC (Bld) 68.7 % Normal . [facility] Comment on above: Performed By: #### C BC #### [facility] [address] [place] [address] [place] Nucleated RBC/100 WBC (Bld) [Ratio] 0.1 % Normal 0-0.5 [facility] Comment on above: Performed By: #### C BC #### [facility] [address] [place] [address] [place] Platelet mean volume (Bld) [Entitic vol] 8.0 fL Normal 6.3-10.7 [facility] Comment on above: Performed By: #### C BC #### [facility] [address] [place] [address] [place] Platelets (Bld) [#/Vol] 298 10*3/uL Normal 150-450 [facility] Comment on above: Performed By: #### C BC #### [facility] [address] [place] [address] [place] RBC (Bld) [#/Vol] 3.25 10*6/uL Low 3.60-5.00 [facility] Comment on above: Performed By: #### C BC #### [address] WBC (Bld) [#/Vol] 8.6 10*3/uL Normal 4.5-11.0 [facility] Comment on above: Performed By: #### C BC #### [place] [address] [place] Dipstick and Microscopicon 0 06-14-2021 Appearance (U) Clear Normal Clear [facility] Comment on above: Order Comment: Name Collection Type:: Clean-Voided Midstream Performed By: #### A DDONUAPLUS, OBUDS #### [place] [address] [place] Bacteria,Urine None Seen Normal None Seen [facility] Comment on above: Order Comment: Name Collection Type:: Clean-Voided Midstream Performed By: #### A DDONUAPLUS, OBUDS #### [place] [address] [place] Bilirubin,Urine Negative Normal Negative [facility] Comment on above: Order Comment: Name Collection Type:: Clean-Voided Midstream Performed By: #### A DDONUAPLUS, OBUDS #### [place] [address] [place] Color (U) Yellow Normal Yellow [facility] Comment on above: Order Comment: Name Collection Type:: Clean-Voided Midstream Performed By: #### A DDONUAPLUS OBUDS #### [facility] [address] [place] [address] Glucose Ql (U) Normal Normal Normal [facility] Comment on above: Order Comment: Name Collection Type:: Clean-Voided Midstream Performed By: #### A DDONUAPLUS OBUDS #### [facility] [address] [place] [address] Hyaline Casts,Urine 0-8 Normal 0-8 [facility] Comment on above: Order Comment: Name Collection Type:: Clean-Voided Midstream Result Comment: PERF ORMED BY: [place] [address] PATHOLOGIST OUTREACH WORKER STEPHANIE ROACH M.D. Performed By: #### A DDONUAPLUS OBUDS #### [facility] [address] [place] [address] Ketones Ql (U) Negative Normal Negative [facility] Comment on above: Order Comment: Name Collection Type:: Clean-Voided Midstream Performed By: #### A DDONUAPLUS OBUDS #### [address] Leukocyte esterase Test strip Ql (U) Negative Normal Negative [facility] Comment on above: Order Comment: Name Collection Type:: Clean-Voided Midstream Performed By: #### A DDONUAPLUS OBUDS #### [address] Nitrite,Urine Negative Normal Negative [facility] Comment on above: Order Comment: Name Collection Type:: Clean-Voided Midstream Performed By: #### A DDONUAPLUS, OBUDS #### [address] Occult Blood,Urine 3+ High Negative [facility] Comment on above: Order Comment: Name Collection Type:: Clean-Voided Midstream Result Comment: PERF ORMED BY: [address] [address] PATHOLOGIST OUTREACH WORKER STEPHANIE ROACH M.D. Performed By: #### A DDONUAPLUS, OBUDS #### [address] pH (U) 7.5 [pH] Normal 5.0-9.0 [facility] Comment on above: Order Comment: Name Collection Type:: Clean-Voided Midstream Performed By: #### A DDONUAPLUS, OBUDS #### [address] Protein,Urine Negative Normal Negative [facility] Comment on above: Order Comment: Name Collection Type:: Clean-Voided Midstream Performed By: #### A DDONUAPLUS, OBUDS #### [address] RBC,Urine 20-49 High 0-4 [facility] Comment on above: Order Comment: Name Collection Type:: Clean-Voided Midstream Performed By: #### A DDONUAPLUS, OBUDS #### [address] Specificy [place],Urine 1.009 Normal 1.001-1.030 [facility] Comment on above: Order Comment: Name Collection Type:: Clean-Voided Midstream Performed By: #### A DDONUAPLUS, OBUDS #### [address] Squamous Epithelial Cell,Urine 1-2 Normal 0-2 [facility] Comment on above: Order Comment: Name Collection Type:: Clean-Voided Midstream Performed By: #### A DDONUAPLUS, OBUDS #### [address] Urobilinogen,Urine Normal Normal Normal [facility] Comment on above: Order Comment: Name Collection Type:: Clean-Voided Midstream Performed By: #### A DDONUAPLUS, OBUDS #### [address] WBC,Urine None Seen Normal 0-4 [facility] Comment on above: Order Comment: Name Collection Type:: Clean-Voided Midstream Performed By: #### A HARJIT OBUDS #### [facility] [address] [place] [address] OB Urine Drug Screen (NO THC )on 06-14-2021 Amphetamine Screen,Urine Negative Normal Negative [facility] Comment on above: Performed By: #### A DDONUAPLUS, OBUDS #### [address] Barbiturate Screen,Urine Negative Normal Negative [facility] Comment on above: Performed By: #### A DDONUAPLUS OBUDS #### [address] Benzodiazepines Screen,Urine Negative Normal Negative [facility] Comment on above: Performed By: #### A DDONUAPLUS, OBUDS #### [address] Cocaine Screen,Urine Negative Normal Negative [facility] Comment on above: Performed By: #### A DDONUAPLUS, OBUDS #### [facility] [address] [place] [address] Opiate Screen,Urine Negative Normal Negative [facility] Comment on above: Performed By: #### A DDONUAPLUS, OBUDS #### [address] Phencyclidine Screen, Urine Negative Normal Negative [facility] Comment on above: Result Comment: Thes e are unconfirmed results and should not be used for legal purposes. Drug Cut-Off Concentration: AMPH 1000 ng/mL NOLBERTO 200 ng/mL BIANCA 200 ng/mL COCM 300 ng/mL OP 300 ng/mL PCP 25 ng/mL PERFORMED BY: [place] [address] PATHOLOGIST OUTREACH WORKER STEPHANIE ROACH M.D. Performed By: #### A DDONUAPLUS, OBUDS #### [address] US OB 2nd/3rd Trimesteron OB 2nd/3rd Trimester FINDINGS: [...] 4.6 cm (19 weeks, 6 days) Head Dmwjoxwepggwu31.3 cm (19 weeks, 0 days) Abdominal Kvfulabaipdov78.6 cm (19 weeks, 0 days) Femur Length 3.1 cm (19 weeks, 3 days) PresentationBreech Weight (g) by Afmrocmyfq83.4%* These measurements result in an estimated date [...] by Ayo Jiménez on 04/18/[address] [facility] [employer] Utility Worker Coding Summaryon 04-07-2021 Coding Summary [employer]Base 64 NeljolkoLZs5iQi+PG hlYWQ+MK2HHKPjP90h eUTnqJ5TA4bUVA2YBX QNNHLYEI9NGA8jjUJ9 BJcyG3OhqiRr YefhdPFpNO34NRf8WB U1oUksKMhwnQ5ekEUc H5j2VxJfYK61iT10VO uuRCOjSkR3HtIjoisn bWFy M3uaDoCvqIWkUcw+PH RhYmxlIHdpZHRoPScx EMXuUpGkyVnmOM4yMo 9yZGVyLWNvbGxhcHNl OiBj l9jtAIUeWQucRI4ysO ljB3EorFW5SQMdg4m2 Lk75rSA+CRHhHGI5sB hvGLfgz760OcEas1ia IDM3 gDOmSHrzWSW5Y46zp7 A1YFObGEZsBDP5nHK5 fH1xzPukjsxjX5XnxF GjRdK0FZI5nMDxqP8q bGln spanjS7hQfa+Q09ESU 5FXMTBSA3IWfh3X5Ai PjwvdHI+SR14SMZbBA 24wLDavTBsi8ewsPm1 JzEw VTUcCDD4qLesQJxdt6 EzWZAzH54mfUEjd3F9 IGNvbGxhcHNlOyBlbX J4dI6gUOwvydxjj3md dzsn Foaxq7oiqj74tC90N6 1gQQuuETIdCYH3IEWu LHGaiLltba5vvW2tIg 8+YQwwg7gdl5pzsNl7 IjIw WIKifeCzqWtkRYJ5f3 AhAo06E5BsnTeax2Fr Tvv7zm46cQQms1N1oS A1GPszTPLtnY0pTWte ZnQ6 VRGvSeJbmA79xPSgSL hwNf7zdIutoKqhXV0w EFXygjmrZCEnoP3oRH CilXUloIifFN5aKVBr bjtm h503ZdAfNXY2SMWjkG DbZ3FehL2eWuLpPVDq LSSoG2WbdHCsSFukT6 51BFweTpX5XBAhzsTt Y2Fs NHPqmWooVnO6c6L7Je 6Dm1OmalanCWD9DHxd ZWNgHhHpYaPhDeN5S7 WwKuu1RYCrxNgpWA2o J3Bh IGVcmdxfrpdzwTF0JV IkTLPjbM71yVRaOGhk Ne4pt7F1e759UVNhRX RrrS09Nb7ieBznRDGm dCBU nW9kysexg5lxvubrYt TySQZrGPq8XPh5SPJx uIctJnDrNJP6PcI1AL G9vORbzX5jqOoysjof dG9w Oyc+M84koP1pEXP7XO J3stxhBMLejdIcLJ05 ZG30L1BgNeyftMRpeD U+EVCxbpMiaCakGK7m YmFj p5uot5VzEXonA4VrYZ LaNUbvClb3YXNzLIR5 jUF9nO6aHGHcJPuat5 L5oME2U7RbcfTkkm9r b2xs MLPjQCuzD33haKApv2 E7PXRkkNY6RUJvrIbc JfAbwI45Sxn+PGNvbG soi2JsHuxlh5ktj2rw dGg9 IjMwJSIgdmFsaWduPS B0r4MqDc83W57gIZwq ZHRoPSIxNSUiIHZhbG lrnt5wtM4lLn9+PGNv bCB3 kDP1fX1hDYKnExY5YX uqZ042HiGatEJkByff l3wjo2xhfUk3GpVeTI NmixRwcSyqYAU2m2Zu Lz48 L84rBCobYBRjGWKqWT RpNCWstCjyrj5psY0u Ii8+LS0xb7qzsb35xV 48dHI+PMJiNJD1mKey PSdw OEJtpJ4xHOmmCjW9BU CnCbShmA64cQLsFAkd Ch3seWoqfOagFP7dIV Ipbllxu317IiWda1bi IDEw qRYsCAdmWPI5I64le8 J0HJXiXHZoOEY7dWQ1 vW5vhUcvqgrhnZSmgU sgdmVydGljYWwtYWxp Z246 IHRvcDsnPlBhdGllbn WnMfJzWWg6U7JxCuh8 BOXbhRjhOI8kkVBqED cbXz8moMkrxJnkRH0o NTBp affqr153MtRtm3gcRL FaoGIaFMdlNTU4N39r k8T4QMMdYWZgAJA5gT S6yZ7gjZamyzuifBCg dDsg dmVydGljYWwtYWxpZ2 46IHRvcDsnPkJpcnRo UQLfxOD6VA43UF51aA Eus7U5oMC1M1UzXCPa bmct dsxwpVF1AXPtKAYexI 72Ld0qpJtmIk3lIJOd LSI5CSHjvCDnS8EraJ 7xWsGtHZQyDROnG6Nt eHQt UFgbQ398PMhbAqX2TR RuztKxR2PjVIKnbPau XvI7e7N9Yj7AG5U6ZB 30ZG99rGXxa3J1tBA5 J3Bh OCLvdbresliioYJ2NM XrBDWtqA65Za7ybTny Oj0uQYEcCDL5QMEatG NiT6OkdM1rDrBtXOFs MDAw W7MsgSAgYJbhE533AT bjSpD6XJGxqoGnA9Cw PWWepXahPiY1a0K5Ps 4KLLg8CV27EY70tKRr c3R5 dTA4K9GqAVPgkfentl thkBG8LSUjGOJvwE42 Om9jkHlmCn7xKZUdFS J6VQDqrDOgP8YgzJ3i OiAj QBYsEHKeX0UgoGPqKP reK348QVofYvZ9GEHa duMbD1MrWTRazNtmWq Q0h1A3Ax1GPDKcLO16 IFR5 aWI3RV85EH32Z5CeYy wvdGFibGU+PHRhYmxl IHdpZHRoPScxMDAlJy EezMydUL6wDh3vZQFs LWNv nUmmjOIeTkDob3cgOX AqNBvwYO7tsEbbF8Ad mVX2ATJtm9y3Dj26M7 5iD3RqrGT+PGNvbCB3 aWR0 sO0jBoGgLaC6IQjdC2 15MfBgzTCrNrrtq8rk g7aygOp2KiV4KLMivx SnzAncCAX4m5VbBy31 Y29s IHdpZHRoPSIxNSUiIH KwhRadxb0aiE8zEg5+ MXQzwDK5cMN0nM4vXu CuXyV4LRxfM215EhYa cCIv Fjouu5olz9wkhOg2Hj IwJSIgdmFsaWduPSJ0 u5ArHn03K3EblCnba8 YuUsk5vp79uJKvw0Y6 bGU9 H1BzRUEwvojfcXTkxQ idCD6mQOJpjbzkXPUg bJ9iYBFmG0f1AtGlSn R0ZTsjR2BeltK5KYUk cHQg VXfzQRI7I16aw3E5HW HaWGIyDFT9mAU5mQ1t bGlnbjogbGVmdDsgdm OczZoeQKpdTVwiI109 IHRv iZbaBSDaaS9aXFOizP YvoEszRY4gYWKsovxn OhLBIpYLGzzxAJ9KMO GWDHM2K1PiZdk9EJWo dHls RL0waJYpPLftNs4nxT gfoQzgEQ4zEVZyczed JPPtfY0oFXNleNEiuF edOQ9oFTMhhjqbf990 OiAx KCR9RSPocUHnC3NcjP 0uJfNlDPRmNCFcK6Tl rUGpFZdxF993KWcoWv G9ZHRqokWxI4SlCSDs aWdu ZyN0u6Y4Kd4eUr4zQo 9kKNjwGT29JA87yIAt q5D3sXH1X6XmIBXlyi mznecldTB1KKTjNUJm aW47 hXLvJKjaDz1ni0M2d9 71JNFdGCYdhJ52Zn0v zUjgYDOsmUQMwM0jyu ebr0sdderzSfSwKVUw MDt0 KNa0CKDxuFmmEbXjLN Y6DgQ5AJH0gMOraO0w fRwnbntfsQ6nCpc+Mz IeVUGrkpJ1A6UfBnr4 ZCBz hQolQH6gpISfJHsyUc 5bnOievQkoDM7fGBTm jtipXWJeiK6nEQAhdC GywYydWG3xLRRvnqoy b250 QdIwIUP4JYPxjWIyG8 RonS8pUvHeAYKwEAMh U4YpnKJcBTyhG171NJ obFrB1DMBvynDaT1Bh LWFs pYqmCnF8q1L6Uk1SPZ 5LVCK5C9VdSlv3XUJn kInmTM8niKJlEMvjHv 0rlGrrvGxaMF7wNSXw bjtw OZNqpB2ySUWvaDZnvZ uhDI5tJOLdhmjjn809 HvWnZLZ8FAXsuVSbO8 FevW1zJlAvDUFtNKKc O3Rl bDBgQPvtM271OBxxCd X8YIBsunVqD1OyEAQn sCdwKnP5g7O3By0DZJ wvdGQ+CJ47ek38K3Jl Ymxl Jqq6UCSzRUR2rMZ7kO 2bTAUxFBpua1U7nYK1 E9WohbDsrz0gf6rgKY ZxDPrhL08oeQWfm0U9 IGVt jGW1ZQPcxUtbXxLupD 93Oyc+KXNyfCtva5Rq Zvhip7tor7jwwKw3Kx MwJSIgdmFsaWduPSJ0 b3Ai Ay06R55tGVcfEBGgYS GrWSGeJBQbeAqfgl5i aQ5jTe4+LZNtbUM0eU E0tX6kNvKqGlR8PLgy Z249 DdNrgDFvPwxbe5tmy9 oouUi2UdGvQRWyloDa rFgbUWN3u6UbKm69Y0 WevGluv8XhGzm5cz16 dGQg l2K9kSX3N4PgIBRwhy sjoVHorCbnPQ5jDGQb hdhvVWOfeM3iBGMyF0 g8KtEqYgE7DBacX6Ia bnQ6 IGJvbGQgMTBwdCBUaW 9kipljv2qdootbGjGf VHGmARk5KDr2HCTalO kjIcHvYEW3NqK6VKL6 aWNh iY2ioQqusfwqnT6fQz c+CLg6o6ihzHRiJI3i cON4WP51WJ34dXMvq6 V7xXD9S5CzLFThsmuo cmln aWW2UZRkPNUqtI95Yg 2jtJraHm3lKPPkXEY9 PEFsvHDsZ7SonH3fFn JmZLLnMNOvE3BdrGBw YWxp P387DKlbUiN7DGOgiy NcE8BqPIWslMpbYcB2 o0I2En8DNA01QB27CF 08zXXvv7U6fHF5Y1Dt ZGRp bphmstubbVL5XRKfHC EscP04Nx8twQxfBa6r WTMwSGV5VGCnuDGjB1 EckI2gZnNrKPXxYNSj O3Rl iLJaBVgkY522JJttTk A3PHPcvoZuW2GeCAWg tIitCuO0l5T1Sz5MPq 10OC32WU11wSVrn0J8 bGU9 P1RkGAFzpcpnepiqxJ U2RVTuSNLxtP57Cr5p bUheGb9aURUyXVL6TD IufYMwL5LvxQ0iUbOg MDAw DZYkE9XhnAOiUUdjO5 22MRcoCcN9EEBmfbVf L3MyHSLgeKapDiB8w8 V0Td9CEDjghtf9M7Xc Pjwv dHI+JV06ACHkXC20iN EdjVIul5wwwNh2BqAz BOPbJIV8wCljTNpss1 HuXFKxQ97zpLWow7G8 IGNv bGx (more content not included)... [facility] Consent Formson 04-01-2021 Consent Forms [id number]#1.00OTGTIFF [facility] Provider Orderson 04-01-2021 Provider Orders [id number]#1.00OTGTIFF [facility] COVID Quick Testingon 2021 Result Positive [employer] Other HERPES SIMPLEX VIRUS 1/2 DNA PCRon 11-11-2020 HSV-1 DNA Negative Normal Negative [facility] Comment on above: Performed By: #### C BC #### [facility] [address] [place] [address] Sunshine Carlos HSV-2 DNA Positive Abnormal Negative [facility] Comment on above: Result Comment: This test was developed and its performance characteristics determined by [employer]. It has not been cleared or approved by the [place] Food and Drug Administration. The FDA has determined that such clearance or approval is not necessary. This test is used for clinical purposes. It should not be regarded as investigational or research. Performed By: #### C BC #### [facility] [address] [place] [address] Sunshine Carlos CULTURE URINEon 11-10-2020 CULTURE URINE Isolate 1 Streptococcus pyogenes >100,000 cfu/mL of ORGANISM 1 Streptococcus pyogenes ANTIBIOTIC M.I.C RX STATUS Benzylpenicillin <=0.06 S F Ampicillin <=0.25 S F Cefotaxime <=0.12 S F Ceftriaxone <=0.12 S F Levofloxacin 0.5 S F Erythromycin 4 R F Clindamycin <=0.25 S F Linezolid <=2 S F Vancomycin <=0.12 S F Tetracycline <=0.25 S F Normal [facility] Comment on above: Performed By: #### C BC #### [facility] [address] [place] [address] Sunshine Carlos CHLAMYDIA/GONOCOCCUS TINA (SW AB/URINE/PAPon 11-09-2020 Chlamydia trachomatis, TINA Negative Normal Negative [facility] Comment on above: Performed By: #### C T/NGNA #### [facility] [address] [place] [address] Sunshine Carlos Neisseria gonorrhoeae, TINA Negative Normal Negative [facility] Comment on above: Performed By: #### C T/NGNA #### [facility] [address] [place] [address] Sunshine Carlos Covid-19 PCR (CVDTBH)on 10-18 SARS-CoV-2 (COVID-19) RNA TINA+probe Ql (Unsp spec) Not detected Normal NOT DETECTED [facility] Comment on above: Result Comment: This test is not yet approved or cleared by the [place] FDA. When there are no FDA-approved or cleared tests available, and other criteria are met, FDA can make tests available under an emergency access mechanism called an Emergency Use Authorization (EUA). The EUA for this test is supported by the [place] of Health and Human Service's (HHS's) declaration [...] Performed By: #### C VDAGS, CVDTBH #### [facility] [address] [place] [address] Sunshine Carlos ER URINE PROFILEon 1 Bilirubin Ql (U) Negative Normal NEGATIVE [facility] Comment on above: Performed By: #### C BC #### [facility] [address] [place] [address] Sunshine Carlos Clarity (U) CLEAR Normal CLEAR [facility] Comment on above: Performed By: #### C BC #### [facility] [address] [place] [address] Sunshine Carlos Color (U) LT. YELLOW Normal YELLOW [facility] Comment on above: Performed By: #### C BC #### [facility] [address] [place] [address] Sunshine Carlos ERUAHD A micrscopic examination will be performed if indicated. Normal The [facility] Comment on above: Performed By: #### C BC #### [facility] [address] [place] [address] Sunshine Breanna Glucose Ql (U) Negative Normal NEGATIVE [facility] Comment on above: Performed By: #### C BC #### [facility] [address] [place] [address] Sunshine Breanna Hemoglobin Ql (U) LARGE Abnormal NEGATIVE [facility] Comment on above: Performed By: #### C BC #### [facility] [address] [place] [address] Sunshine Breanna Ketones Ql (U) Negative Normal NEGATIVE [facility] Comment on above: Performed By: #### C BC #### [facility] [address] [place] [address] Sunshine Breanna LEUKOCYTES Negative Normal NEGATIVE The [facility] Comment on above: Performed By: #### C BC #### [facility] [address] [place] [address] Sunshine Breanna Nitrite Ql (U) Negative Normal NEGATIVE [facility] Comment on above: Performed By: #### C BC #### [facility] [address] [place] [address] Sunshine Breanna pH (U) 5.5 [pH] Normal 5-9 [facility] Comment on above: Performed By: #### C BC #### [facility] [address] [place] [address] Sunshine Breanna SPEC GRAVITY >=1.030 Abnormal 1.005-<=1.02 5 [facility] Comment on above: Performed By: #### C BC #### [facility] [address] [place] [address] Sunshine Breanna UA PROTEIN Negative Normal NEGATIVE/ TRACE [facility] Comment on above: Performed By: #### C BC #### [facility] [address] [place] [address] Sunshine Breanna UR MICRO IND INDICATED Normal [facility] Comment on above: Performed By: #### C BC #### [facility] [address] [place] [address] Sunshine Breanna Urobilinogen Qn (U) 0.2 {Braden'U}/dL Normal 0.2 - 1. 0 [facility] Comment on above: Performed By: #### C BC #### [facility] [address] [place], [place] [address] Sunshine Carlos URon 11-08-2020 , QUAL Negative Normal NEGATIVE [facility] Comment on above: Performed By: #### C BC #### [facility] [address] [place], [place] [address] Sunshine Carlos STREPT SCREENon 11-08-2020 STREP SCREEN A Positive Abnormal NEGATIVE [facility] Comment on above: Performed By: #### C BC #### [facility] [address] [place], [place] [id number] Sunshine Carlos SYMPTOMATIC COVID-19 ANTIGEN on 11-08-2020 EUA Statement SEE BELOW Normal The [facility] Comment on above: Result Comment: This test [...] is revoked sooner. Performed By: #### C IVELISSE, CVDTB #### [facility] [address] [place], [place] [id number] Sunshine Carlos SARS-CoV-2 (COVID-19) RNA TINA+probe Ql (Unsp spec) Negative Normal NEGATIVE The [facility] Comment on above: Result Comment: CONF IRMATION BY PCR PENDING PER CDC GUIDELINES/ SYMPTOMATIC PATIENT. Performed By: #### C VDAGS, CVDTBH #### [facility] [address] [place], [place] [address] Sunshine Carlos URINE MICROSCOPIC ONLYon AMORPHOUS CRYSTALS FEW Normal [facility] Comment on above: Performed By: #### C BC #### [facility] [address] [place] [address] Sunshine Breanna BACTERIA SMALL Abnormal NONE SEEN The [facility] Comment on above: Performed By: #### C BC #### [facility] [address] [place] [id number] Sunshine Breanna Bacteria identified Cx Nom (U) INDICATED Normal [facility] Comment on above: Performed By: #### C BC #### [facility] [address] [place], [place] [address] Sunshine Breanna CAST NONE SEEN Normal NONE SEEN The [facility] Comment on above: Performed By: #### C BC #### [facility] [address] [place], [place] [id number] Sunshine Breanna Crystals LM Nom (Urine sed) SEEN Abnormal NONE SEEN The [facility] Comment on above: Performed By: #### C BC #### [facility] [address] [place], [place] [address] Sunshine Breanna Epithelial cells LM Ql (Urine sed) MODERATE Abnormal NONE SEEN /RARE The [facility] Comment on above: Performed By: #### C BC #### [facility] [address] [place], [place] [id number] Sunshine Breanna MUCOUS MODERATE Abnormal NONE SEEN The [facility] Comment on above: Performed By: #### C BC #### [facility] [address] [place], [place] [address] Sunshine Breanna RBC 2-5 Abnormal 0-2 [facility] Comment on above: Performed By: #### C BC #### [facility] [address] [place] [address] Sunshine Breanna WBC 5-10 Abnormal NONE SEEN The [facility] Comment on above: Performed By: #### C BC #### [facility] [address] [place], [place] [id number] Sunshine Breanna US SINGLE QUAD RT UPPERon [...] by: EDMUNDO GUZMAN Date: 2020-08-19 15:23 Normal [facility] AMYLASEon 08-17-2020 Amylase [Catalytic activity/Vol] 49 U/L Normal 31-110 [facility] Comment on above: Performed By: #### C BC #### [facility] [address] [place] [address] Sunshine Breanna CBC AUTO DIFFon 08-17-2020 BASO # 0.0 103/ul Normal 0.0-0.1 [facility] Comment on above: Performed By: #### C BC #### [facility] [address] [place] [address] Sunshine Breanna Basophils/100 WBC (Bld) 0.6 % Normal 0.2-2.0 [facility] Comment on above: Performed By: #### C BC #### [facility] [address] [place] [address] Sunshine Breanna EO # 0.1 103/ul Normal 0.0-0.7 [facility] Comment on above: Performed By: #### C BC #### [facility] [address] [place] [address] Sunshine Breanna Eosinophils/100 WBC (Bld) 1.3 % Normal 0.9-7.0 [facility] Comment on above: Performed By: #### C BC #### [facility] [address] [place] [address] Sunshine Breanna Erythrocyte distribution width (RBC) [Ratio] 13.0 % Normal 11.0-15.0 [facility] Comment on above: Performed By: #### C BC #### [facility] [address] [place] [address] Sunshine Breanna Hematocrit (Bld) [Volume fraction] 39.1 % Normal 36.0-48.0 [facility] Comment on above: Performed By: #### C BC #### [facility] [address] [place] [address] Sunshine Breanna Hemoglobin (Bld) [Mass/Vol] 13.2 g/dL Normal 12.0-16.0 [facility] Comment on above: Performed By: #### C BC #### [facility] [address] [place] [address] Sunshine Breanna IG # 0.01 10e3/ul Normal 0.00-0.03 [facility] Comment on above: Performed By: #### C BC #### [facility] [address] [place] [address] Sunshine Breanna IG % 0.1 % Normal 0.0-0.5 [facility] Comment on above: Performed By: #### C BC #### [facility] [address] [place] [address] Sunshine Breanna LYMPH # 2.4 103/ul Normal 1.2-3.8 [facility] Comment on above: Performed By: #### C BC #### [facility] [address] [place] [address] Sunshine Breanna Lymphocytes/100 WBC (Bld) 33.5 % Normal 20.5-60.0 [facility] Comment on above: Performed By: #### C BC #### [facility] [address] [place], [place] [address] Sunshine Breanna MANUAL DIFF REQ NO Normal [facility] Comment on above: Performed By: #### C BC #### [facility] [address] [place], [place] [phone] Sunshine Breanna MCH (RBC) [Entitic mass] 30.6 pg Normal 26.7-34.0 [facility] Comment on above: Performed By: #### C BC #### [facility] [address] [place] [address] Sunshine Carlos MCHC (RBC) [Mass/Vol] 33.8 g/dL Normal 29.9-35.2 [facility] Comment on above: Performed By: #### C BC #### [facility] [address] [place] [address] Sunshine Carlos MCV (RBC) [Entitic vol] 90.7 fL Normal 81.0-99.0 [facility] Comment on above: Performed By: #### C BC #### [facility] [address] [place] [address] Sunshine Carlos MONO # 0.3 103/ul Normal 0.3-0.8 [facility] Comment on above: Performed By: #### C BC #### [facility] [address] [place] [address] Sunshine Carlos Monocytes/100 WBC (Bld) 4.1 % Normal 1.7-12.0 [facility] Comment on above: Performed By: #### C BC #### [facility] [address] [place] [address] Sunshine Carlos NEUT # 4.2 103/ul Normal 1.4-6.5 [facility] Comment on above: Performed By: #### C BC #### [facility] [address] [place], [place] [address] Sunshine Carlos Neutrophils/100 WBC (Bld) 60.4 % Normal 43.0-75.0 [facility] Comment on above: Performed By: #### C BC #### [facility] [address] [place], [place] [address] Sunshine Carlos Platelet mean volume (Bld) [Entitic vol] 10.7 fL Normal 9.5-13.5 [facility] Comment on above: Performed By: #### C BC #### [facility] [address] [place], [place] [address] Sunshine Breanna PLT 321 103/ul Normal 150-450 [facility] Comment on above: Performed By: #### C BC #### [facility] [address] [place] [address] Sunshine Carlos RBC 4.31 106/ul Normal 4.20-5.40 [facility] Comment on above: Performed By: #### C BC #### [facility] [address] [place] [address] Sunshinevinita Carlos WBC 7.0 103/ul Normal 4.0-11.0 [facility] Comment on above: Performed By: #### C BC #### [facility] [address] [place] [address] Sunshine Carlos LIPASEon 08-17-2020 Lipase [Catalytic activity/Vol] 97.0 U/L Normal 23.0-300.0 [facility] Comment on above: Performed By: #### T CANDE, CMP, LIPA, CHARLIE #### [facility] [address] [place] [address] Sunshine Carlos PROF 14(COMP METB)on 021 Albumin [Mass/Vol] 3.5 g/dL Normal 3.5-5.0 [facility] Comment on above: Performed By: #### T CANDE, CMP, LIPA, CHARLIE #### [facility] [address] [place] [address] Sunshine Carlos Albumin/Globulin [Mass ratio] 0.8 {ratio} Normal [facility] Comment on above: Performed By: #### T CANDE, CMP, LIPA, CHARLIE #### [facility] [address] [place] [address] Sunshine Breanna ALP [Catalytic activity/Vol] 64 U/L Normal 38-126 [facility] Comment on above: Performed By: #### T CANDE, CMP, LIPA, CHARLIE #### [facility] [address] [place] [address] Sunshine Breanna ALT [Catalytic activity/Vol] 12 U/L Normal 9-52 [facility] Comment on above: Performed By: #### T CANDE, CMP, LIPA, CHARLIE #### [facility] [address] [place] [address] Sunshine Breanna Anion gap [Moles/Vol] 14.9 mmol/L Normal Th e [facility] Comment on above: Performed By: #### T CANDE, CMP, LIPA, CHARLIE #### [facility] [address] [place] [address] Sunshine Breanna AST [Catalytic activity/Vol] 9 U/L Critically low 14-36 [facility] Comment on above: Performed By: #### T CANDE, CMP, LIPA, CHARLIE #### [facility] [address] [address] Sunshine Breanna Bilirubin [Mass/Vol] 0.2 mg/dL Normal 0.2-1.3 [facility] Comment on above: Performed By: #### T CANDE, CMP, LIPA, CHARLIE #### [facility] [address] [address] Sunshine Breanna Calcium [Mass/Vol] 8.9 mg/dL Normal 8.4-10.2 [facility] Comment on above: Performed By: #### T CANDE, CMP, LIPA, CHARLIE #### [facility] [address] [address] Sunshine Breanna Chloride [Moles/Vol] 108 mmol/L Critically high 98-107 [facility] Comment on above: Performed By: #### T CANDE, CMP, LIPA, CHARLIE #### [facility] [address] [address] Sunshine Breanna CO2 [Moles/Vol] 23.8 mmol/L Normal 22.0-30.0 [facility] Comment on above: Performed By: #### T CANDE, CMP, LIPA, CHARLIE #### [facility] [address] [address] Sunshine Breanna Creatinine [Mass/Vol] 0.81 mg/dL Normal 0.52-1.04 [facility] Comment on above: Performed By: #### T CANDE, CMP, LIPA, CHARLIE #### [facility] [address] [address] Sunshine Breanna EGFR-AF GUYANESE >60 Normal >=60 [facility] Comment on above: Performed By: #### T CANDE, CMP, LIPA, CHARLIE #### [facility] [address] [address] Sunshine Breanna EGFR-NON AF GUYANESE >60 Normal >=60 [facility] Comment on above: Performed By: #### T CANDE, CMP, LIPA, CHARLIE #### [facility] [address] [place] [address] Sunshine Breanna Globulin (S) [Mass/Vol] 4.4 g/dL Normal [facility] Comment on above: Performed By: #### T CANDE, CMP, LIPA, CHARLIE #### [facility] [address] [place] [address] Sunshine Breanna Glucose [Mass/Vol] 92 mg/dL Normal 74-106 [facility] Comment on above: Performed By: #### T CANDE, CMP, LIPA, CHARLIE #### [facility] [address] [place] [address] Sunshine Breanna Potassium [Moles/Vol] 3.7 mmol/L Normal 3.4-5.0 [facility] Comment on above: Performed By: #### T CANDE, CMP, LIPA, CHARLIE #### [facility] [address] [place] [address] Sunshine Breanna Protein [Mass/Vol] 7.9 g/dL Normal 6.1-8.2 [facility] Comment on above: Performed By: #### T CANDE, CMP, LIPA, CHARLIE #### [facility] [address] [place] [address] Sunshine Breanna Sodium [Moles/Vol] 143 mmol/L Normal 137-145 [facility] Comment on above: Performed By: #### T CANDE, CMP, LIPA, CHARLIE #### [facility] [address] [place] [address] Sunshine Breanna Urea nitrogen [Mass/Vol] 14.0 mg/dL Normal 7.0-17.0 [facility] Comment on above: Performed By: #### T CANDE, CMP, LIPA, CHARLIE #### [facility] [address] [place] [address] Sunshine Breanna Urea nitrogen/Creatinine [Mass ratio] 17.3 mg/mg Normal [facility] Comment on above: Performed By: #### T CANDE, CMP, LIPA, CHARLIE #### [facility] [address] [place] [address] Sunshine Breanna PREG QUANT HCGon 06-02-2020 HCG QUANT 14 mIU/mL Normal [facility] Comment on above: Performed By: #### C IVELISSE, CVDTB #### [facility] [address] [place], [place] [id number] Sunshine Breanna HCG RANGE SEE BELOW Normal [facility] Comment on above: Result Comment: 5-50 0-1 WEEK 40-300 1-2 WEEKS 100-1,000 2-3 WEEKS 500-6,000 3-4 WEEKS 5,000-200,000 1-2 MONTHS 10,000-100,000 2-3 MONTHS 3,000-50,000 2ND TRIMESTER 1,000-50,000 3RD TRIMESTER Performed By: #### C IVELISSE, CVDTB #### [facility] [address] [place] [address] Sunshine Breanna PREG QUANT HCGon 05-20-2020 HCG QUANT 13 mIU/mL Normal [facility] Comment on above: Performed By: #### C BC #### [facility] [address] [place] [address] Sunshine Breanna HCG RANGE SEE BELOW Normal [facility] Comment on above: Result Comment: 5-50 0-1 WEEK 40-300 1-2 WEEKS 100-1,000 2-3 WEEKS 500-6,000 3-4 WEEKS 5,000-200,000 1-2 MONTHS 10,000-100,000 2-3 MONTHS 3,000-50,000 2ND TRIMESTER 1,000-50,000 3RD TRIMESTER Performed By: #### C BC #### [facility] [address] [place] [address] Sunshine Breanna PREG QUANT HCGon 05-06-2020 HCG QUANT 20 mIU/mL Normal [facility] Comment on above: Performed By: #### P REGQNT #### [facility] [address] [place] [address] Sunshine Breanna HCG RANGE SEE BELOW Normal [facility] Comment on above: Result Comment: 5-50 0-1 WEEK 40-300 1-2 WEEKS 100-1,000 2-3 WEEKS 500-6,000 3-4 WEEKS 5,000-200,000 1-2 MONTHS 10,000-100,000 2-3 MONTHS 3,000-50,000 2ND TRIMESTER 1,000-50,000 3RD TRIMESTER Performed By: #### P REGQNT #### [facility] [address] [place] [address] Sunshine Breanna PREG QUANT HCGon 04-29-2020 HCG QUANT 21 mIU/mL Normal [facility] Comment on above: Performed By: #### P REGQNT #### [facility] [address] [place] [address] Sunshine Breanna HCG RANGE SEE BELOW Normal [facility] Comment on above: Result Comment: 5-50 0-1 WEEK 40-300 1-2 WEEKS 100-1,000 2-3 WEEKS 500-6,000 3-4 WEEKS 5,000-200,000 1-2 MONTHS 10,000-100,000 2-3 MONTHS 3,000-50,000 2ND TRIMESTER 1,000-50,000 3RD TRIMESTER Performed By: #### P REGQNT #### [facility] [address] [place], [place] [address] Sunshine Breanna ABO AND RH TYPEon 04-22-2020 ABO and Rh group Nom (Bld) ABO Rh Typing O Rh Positive Normal [facility] Comment on above: Performed By: #### C BC #### [facility] [address] [place], [place] [address] Sunshine Breanna PREG QUANT HCGon 04-22-2020 HCG QUANT 37 mIU/mL Normal [facility] Comment on above: Performed By: #### P REGQNT #### [facility] [address] [place], [place] [address] Sunshine Breanna HCG RANGE SEE BELOW Normal [facility] Comment on above: Result Comment: 5-50 0-1 WEEK 40-300 1-2 WEEKS 100-1,000 2-3 WEEKS 500-6,000 3-4 WEEKS 5,000-200,000 1-2 MONTHS 10,000-100,000 2-3 MONTHS 3,000-50,000 2ND TRIMESTER 1,000-50,000 3RD TRIMESTER Performed By: #### P REGQNT #### [facility] [address] [place], [place] [address] Sunshine Carlos ED Note-Physicianon 10-16-19 ED Note-Physician [id number] 0EC#[id number]:127 Normal [facility] Chlam and gonorrhea: Amp, Ur ine -UHEon 01-12-2017 Chlam and gonorrhea: Amp, Urine -UHE Negative Negative THIS TEST WAS PERFORMED USING A REAL TIME PCR ASSAY. Normal [facility] Comment on above: Performed By: #### R NABU ####[address] [address] Beta HCG (Qual), Urine - MCH on 01-09-2017 HCG.beta subunit ( test) Ql (U) Positive Abnormal Negative [facility] Comment on above: Performed By: #### H CGUMD, UR1MD ####[address] [place], [place] [address] Beta HCG, quant, S - MCHon 1 Beta HCG, quant, S - MCH 64334.0 mIU/mL Normal [facility] Comment on above: Result Comment: FEMA LE GESTATIONAL AGERESULTS <10 ARE CONSIDERED NEGATIVE4 WEEKS 4700-139748 mIU/mL5 WEEKS 3660-255551 mIU/mL6 WEEKS 16894-781299 mIU/mL7 WEEKS 9[address]-293876 mIU/mL8 WEEKS 526[address]-123751 mIU/mL9 WEEKS 44125-139471 mIU/mL10 WEEKS 47475-960943 mIU/mL11 WEEKS 6480-044708 mIU/ml12 WEEKS 6740-984106 mIU/mL13-27 WEEKS 8200-393498 mIU/mL28-40 WEEKS 2320-95489 mIU/mL Performed By: #### C BCMD, PTPTMD, TYSCMD, QHCGMD ####[facility] [place], [place] [address] CBC, ELECTRONIC DIFF, PLATEL ET - MCHon 01-09-2017 Absolute Basophil 0.0 K/uL Normal 0.0-0.23 [facility] Comment on above: Performed By: #### C BCMD, PTPTMD, TYSCMD, QHCGMD ####[address] [address] Absolute Grans 5.9 K/uL Normal 1.8-7.7 [facility] Comment on above: Performed By: #### C BCMD, PTPTMD, TYSCMD, QHCGMD ####[address] [address] Basophils/100 WBC Auto (Bld) 0.5 % Normal 0-2 [facility] Comment on above: Performed By: #### C BCMD, PTPTMD, TYSCMD, QHCGMD ####[address] [address] Eosinophils 0.1 10*3/uL Normal 0.0-0.7 [facility] Comment on above: Performed By: #### C BCMD, PTPTMD, TYSCMD, QHCGMD ####[address] [address] Eosinophils/100 leukocytes 1.0 % Normal 0-5.0 [facility] Comment on above: Performed By: #### C BCMD, PTPTMD, TYSCMD, QHCGMD ####[address] [address] Erythrocytes (RBC) 13.8 % Normal 11.5-14.5 [facility] Comment on above: Performed By: #### C BCMD, PTPTMD, TYSCMD, QHCGMD ####[address] [address] Grans Electronic 64.6 % Normal 50-70 [facility] Comment on above: Performed By: #### C BCMD, PTPTMD, TYSCMD, QHCGMD ####[address] [address] Hematocrit (HCT) 34.5 % Low 35.0-45.0 [facility] Comment on above: Performed By: #### C BCMD, PTPTMD, TYSCMD, QHCGMD ####[facility] [place], [place] [address] Hemoglobin mass conc (Bld) 31.0 pg Normal 27.0-34.0 [facility] Comment on above: Performed By: #### C BCMD, PTPTMD, TYSCMD, QHCGMD ####[address] [place], [place] [address] Hemoglobin mass conc (Bld) 11.7 g/dL Normal 11.7-15.5 [facility] Comment on above: Performed By: #### C BCMD, PTPTMD, TYSCMD, QHCGMD ####[address] [place], [place] [address] Lymphocytes 2.6 10*3/uL Normal 1.0-4.8 [facility] Comment on above: Performed By: #### C BCMD, PTPTMD, TYSCMD, QHCGMD ####[address] [address] Lymphocytes/100 leukocytes 28.7 % Normal 22.0-44.0 [facility] Comment on above: Performed By: #### C BCMD, PTPTMD, TYSCMD, QHCGMD ####[address] [place], [place] [address] MCH 3.78 M/uL Low 3.8-5.1 [facility] Comment on above: Performed By: #### C BCMD, PTPTMD, TYSCMD, QHCGMD ####[address] [address] MCH 9.1 K/uL Normal 4.5-11.0 [facility] Comment on above: Performed By: #### C BCMD, PTPTMD, TYSCMD, QHCGMD ####[address] [place], [place] [address] MCV 91.0 fL Normal 81.0-100.0 [facility] Comment on above: Performed By: #### C BCMD, PTPTMD, TYSCMD, QHCGMD ####[address] [place], [place] [address] Monocytes 0.5 10*3/uL Normal 0.0-0.9 [facility] Comment on above: Performed By: #### C BCMD, PTPTMD, TYSCMD, QHCGMD ####[address] [place], [place] [address] Monocytes/100 leukocytes 5.2 % Normal 0-7.0 [facility] Comment on above: Performed By: #### C BCMD, PTPTMD, TYSCMD, QHCGMD ####[place] [address] [place], [place] [address] Platelet mean volume (PMV) 8.3 fL Normal 7.5-11.2 [facility] Comment on above: Performed By: #### C BCMD, PTPTMD, TYSCMD, QHCGMD ####[address] [address] Platelets 281 10*3/uL Normal 150-400 [facility] Comment on above: Performed By: #### C BCMD, PTPTMD, TYSCMD, QHCGMD ####[address] [address] ED PROVIDERon 01-09-2017 [facility] CAC NOTES Normal [facility] NOTES Normal [facility] OSUHIMCACCODINGOPEDon 2016 [facility] CAC Coding OP/ED Report Normal [facility] OSUHIMCACENCSUMon 01-09-2017 [facility] CAC Encounter Summary Report Normal [facility] aPTT 33 s Normal 24.6-35.9 [facility] Comment on above: Performed By: #### C BCMD, PTPTMD, TYSCMD, QHCGMD ####[address] [address] INR Coag RelTime (Bld) 1.1 {INR} Normal 0.87-1.15 [facility] Comment on above: Performed By: #### C BCMD, PTPTMD, TYSCMD, QHCGMD ####[place] [place], [place] [address] MCH 13.3 sec Normal 11.5-14.3 [facility] Comment on above: Performed By: #### C BCMD, PTPTMD, TYSCMD, QHCGMD ####[address] [place], [place] [address] TYPE AND SCREEN - MCHon 12-18 [facility] ABO/RH(D) - [facility]: O POSITIVE ANTIBODY SCREEN - MCH: Negative Normal [facility] Comment on above: Performed By: #### C BCMD, PTPTMD, TYSCMD, QHCGMD ####[address] [place], [place] [address] Urinalysis reflex to [facility] COMMENT URINE None Normal [facility] Comment on above: Performed By: #### H CGUMD, UR1MD ####[address] [place], [place] [address] Squamous Epithelial 2+ /HPF Normal [facility] Comment on above: Performed By: #### H CGUMD, UR1MD ####[address] [place], [place] [address] Urine, bacteria in sediment Absent Normal Absent [facility] Comment on above: Performed By: #### H CGUMD, UR1MD ####[address] [place], [place] [address] Urine, erythrocytes in sediment by area 0-2 Normal 0-2 [facility] Comment on above: Performed By: #### H CGUMD, UR1MD ####[address] [place], [place] [address] Urine, leukocytes in sedmiment 0-5 Normal 0-5 [facility] Comment on above: Performed By: #### H CGUMD, UR1MD ####[place] [address] [place], [place] [address] Bilirubin Urine Negative Normal Negative [facility] Comment on above: Performed By: #### H CGUMD, UR1MD ####[place] [address] [place], [place] [address] Blood Urine Moderate Abnormal Negative [facility] Comment on above: Performed By: #### H CGUMD, UR1MD ####[place] [address] [place], [place] [address] Nitrites Urine Negative Normal Negative [facility] Comment on above: Performed By: #### H CGUMD, UR1MD ####[place] [address] [place], [place] [address] Protein Urine Negative Normal Negative [facility] Comment on above: Performed By: #### H CGUMD, UR1MD ####[address] [place], [place] [address] Specific [place] urine 1.020 Normal 1.001-1.035 [facility] Comment on above: Performed By: #### H CGUMD, UR1MD ####[address] [place], [place] [address] Urine, appearance Clear Normal Clear [facility] Comment on above: Performed By: #### H CGUMD, UR1MD ####[address] [place], [place] [address] Urine, color Yellow Normal YEL,DKYEL [facility] Comment on above: Performed By: #### H CGUMD, UR1MD ####[address] [place], [place] [address] Urine, glucose presence Negative Normal Negative [facility] Comment on above: Performed By: #### H CGUMD, UR1MD ####[address] [place], [place] [address] Urine, ketones presence Negative Normal Negative [facility] Comment on above: Performed By: #### H CGUMD, UR1MD ####[address] [place], [place] [address] Urine, leukocyte esterase presence Negative Normal Negative [facility] Comment on above: Performed By: #### H CGUMD, UR1MD ####[address] [place], [place] [address] Urine, pH 6.0 [pH] Normal 5.0-7.0 [facility] Comment on above: Performed By: #### H CGUMD, UR1MD ####[address] [place], [place] [address] Urobilinogen urine 0.2 EU/dL Normal <2.0 [facility] Comment on above: Performed By: #### H CGUMD, UR1MD ####[address] [place], [place] [address] Vital Signs Date Time Vital Sign Value Performing Clinician Facility 03-29-2021 11:15-0500 Body height 172.72 cm Arminda Holt Other [facility] Other 03-29-2021 11:15-0500 Body mass index (BMI) [Ratio] 36.49 kg/m2 Arminda Holt Other [facility] Other 03-29-2021 11:15-0500 Body temperature 97 [degF] Arminda Holt Other [facility] [employer] Other 03-29-2021 11:15-0500 Body weight 108.86 kg Arminda Holt Other [facility] [employer] Other 03-29-2021 11:15-0500 SaO2% (BldA) [Mass fraction] 99 % Arminda Holt Other [facility] Other Encounters Encounter Date Encounter Type Care Provider Facility Start: 11-22-2023 End: 11-22-2023 ambulatory DMITRIY [facility] Start: 11-20-2023 End: 11-20-2023 ambulatory DMITRIY AEZB Not Available Start: 10-25-2023 End: 10-25-2023 ambulatory DMITRIY [facility] Start: 10-24-2023 End: 10-24-2023 ambulatory CHARLIE GUZMAN Not Available Start: 09-24-2023 End: 09-24-2023 ambulatory DMITRIY AZEB Not Available Start: 08-22-2023 End: 08-22-2023 ambulatory DMITRIY AZEB Not Available Start: 07-26-2023 End: 07-26-2023 ambulatory DMITRIY AZEB Not Available Start: 03-29-2021 End: 03-29-2021 ambulatory Arminda Holt Other [facility] Other Start: 03-29-2021 Office outpatient ne w 20 minutes Arminda Holt [facility] Start: 11-08-2020 End: 11-08-2020 ambulatory LISA PACHECO Facility: Start: 08-19-2020 End: 08-20-[address] HAMMAD NIEVES Facility:[facility] Start: 08-17-2020 End: 08-17-[address] HAMMAD NIEVES Facility:[facility] Start: 06-02-2020 End: 06-03-2020 ambulatory HERBERT PACHECO Facility:[facility] Start: 05-20-2020 End: 05-21-[address] PAYAN LISTED ELISSA Facility:[facility] Start: 05-06-2020 End: 05-07-2020 ambulatory HERBERT JUNIOR Facility:[facility] Start: 04-29-2020 End: 04-30-2020 ambulatory HERBERT PACHECO Facility:[facility] Start: 04-22-2020 End: 04-23-2020 ambulatory HERBERT PACHECO Facility:[facility] Start: 01-09-2017 End: 01-09-2017 Emergency department patient visit SELF SELF [facility] Payers Date Payer Category Payer Unknown [id number] 2017 Unknown [id number] 1989 Unknown [id number] 2.16.84 0.1.674880.3.579.2.593 1989 Unknown [id number] 2.16.84 0.1.981350.3.579.2.593 1989 Unknown [id number] 2.16.84 0.1.587224.3.579.2.593 1989 Unknown [id number] 2.16.84 0.1.170501.3.579.2.593 1989 Unknown [id number] 2.16.84 0.1.567234.3.579.2.593 1989 Unknown [id number] 2.16.84 0.1.688357.3.579.2.593 1989 Unknown [id number] 2.16.84 0.1.362589.3.579.2.593 1989 Unknown [id number] 2.16.84 0.1.633885.3.579.2.593 1989 Unknown [id number] 2.16.84 0.1.942712.3.579.2.1259 1989 Unknown [id number] 2.16.84 0.1.070327.3.579.2.1258 1989 Unknown [id number] 2.16.84 0.1.004040.3.579.2.1258 1989 Unknown [id number] 2.16.84 0.1.746421.3.579.2.1258 1989 Unknown [id number] 2.16.84 0.1.589700.3.579.2.1258 1989 Unknown [id number] 2.16.8 40.1.170446.3.579.2.1285 1989 Unknown [id number] 2.16.8 40.1.069958.3.579.2.1285 1989 Unknown [id number] 2.16.8 40.1.970704.3.579.2.6 1959 Private Health Insurance [id number] 1960 Self-pay [id number] Unknown [id number] 2.16. 840.1.807309.19 Social History Date Type Detail Facility Sex Assigned At [facility] Other Evaluation note 03-29-2021 Note Date & [...] Patient care instructions given in writting by [facility] Care At Home document. [employer] Other Summary Purpose Family History No Family [...] section and content) DATE CREATED AUTHOR 09/11/2017 [facility] DATE CREATED AUTHOR AUTHOR'S ORGANIZ ATION 10/18/2019 [facility] DATE CREATED AUTHOR AUTHOR'S ORGANIZ ATION 11/24/2020 [facility] DATE CREATED AUTHOR AUTHOR'S ORGANIZ ATION 04/08/2021 [facility] DATE CREATED AUTHOR AUTHOR'S ORGANIZ ATION 04/18/2021 [facility] DATE CREATED AUTHOR AUTHOR'S ORGANIZ ATION 06/24/2021 [facility] DATE CREATED AUTHOR AUTHOR'S ORGANIZ ATION 11/20/2023 [facility] DATE CREATED AUTHOR AUTHOR'S ORGANIZ ATION 11/24/2023 [facility] REASON FOR VISIT (unrecogniz ed section and [...] BE BASED ON THE PRIMARY CLINICAL RECORDS. [facility] [employer] [facility]. provides no warranty or guarantee of the accuracy or completeness of information in this document.
[2023-12-03 10:20] LABS: Basophils Percent Auto 0.6 % (0.2-2.0); Eosinophils Absolute Auto 0.1 10^3/uL (0.0-0.7); Eosinophils Percent Auto 1.5 % (0.9-7.0); Hematocrit 33.2 % (36.0-48.0); Hemoglobin 11.1 g/dL (12.0-16.0); Immature Granulocytes Abs Auto 0.05 10^3/uL (0.00-0.03); Immature Granulocytes Pct Auto 0.7 % (0.0-0.5); Lymphocytes Absolute Auto 1.5 10^3/uL (1.2-3.8); Lymphocytes Percent Auto 20.4 % (20.5-60.0); Mean Corpuscular HGB Conc 33.4 g/dL (29.9-35.2); Mean Corpuscular Hemoglobin 33.1 pg (26.7-34.0); Mean Corpuscular Volume 99.1 fL (81.0-99.0); Mean Platelet Volume 9.7 fL (9.5-13.5); Monocytes Absolute Auto 0.3 10^3/uL (0.3-0.8); Monocytes Percent Auto 4.6 % (1.7-12.0); Neutrophils Absolute Auto 5.2 10^3/uL (1.4-6.5); Neutrophils Percent Auto 72.2 % (43.0-75.0); Platelet Count 233 10^3/uL (150-450); Red Blood Count 3.35 10^6/uL (4.20-5.40); Red Cell Distribution Width 12.8 % (11.0-15.0); White Blood Count 7.2 10^3/uL (4.0-11.0)
[2023-12-03 12:02] LABS: Glucose 1 Hour 124 mg/dL (<130)
== END 2023-12-03 09:07 | disposition home or self-care (01) ==
LOC: LAB 09:07
PROVIDERS: Visit Provider Physician Assistant
DX: Z13.1 Encounter for screening for diabetes mellitus (principal)
CPT/HCPCS: 36415; 82950; 85025

== ENCOUNTER 2023-12-27 06:57 | Outpatient (OUT) | payer BC, SELFPAY ==
--- OUTSIDE RECORDS SUMMARY | 2023-12-27 07:01 | XMS_ITS | CCD ---
Author Organization [facility]ini[facility] Care Team Providers Care Glue Reel Operator Name Role Phone SELF, SELF Unavailable [...] LISTED Primary Care Unavaila ble JUNIOR, HERBERT Attending Unavailable JUNIOR, HERBERT Consulting Unavailable REQUEST, NONE LISTED Primary Care Unavaila ble JUNIOR, HERBERT Admitting Unavailable JUNIOR, HERBERT Attending Unavailable REQUEST, NONE LISTED Primary Care Unavaila ble JUNIOR, HERBERT Consulting Unavailable JUNIOR, HERBERT Admitting Unavailable JUNIOR, HERBERT Attending Unavailable EZEQUIEL, DR CUEVA Admitting Unavailable EZEQUIEL, DR CUEVA Attending Unavailable EZEQUIEL, DR CUEVA Consulting Unavailable REQUEST, NONE LISTED Primary Care Unavaila ble PACHECO, LISA Admitting Unavailable REQUEST, NONE LISTED Primary Care Unavaila dennis BERGMAN, LISA Attending Unavailable PACHECO, LISA Consulting Unavailable JUNIOR, HERBERT Consulting Unavailable REQUEST, NONE LISTED Primary Care Unavaila ble JUNIOR, HERBERT Admitting Unavailable JUNIOR, HERBERT Attending Unavailable Arminda Holt Unavailable MACY BABCOCK Attending Unavailable FLORO, LYNNETTE Referring Unavailable FLORO, LYNNETTE Primary Care Unavailable DMITRIY KOEHLER R Referring Unavailable FLORO, LYNNETTE Primary Care Unavailable RODO, DMITRIY R Referring Unavailable FLORO, LYNNETTE Primary Care Unavailable DMITRIY KOEHLER Attending Unavailable RODO, DMITRIY Attending Unavailable JANINE GUZMAN Attending Unavailable RODO, DMITRIY Attending Unavailable JANINE GUZMAN Attending Unavailable RODO, DMITRIY Attending Unavailable Unavailable Primary Care Provider Unavailabl e FLORO, LYNNETTE Referring Unavailable LYNNETTE SOUZA Primary Care Unavailable Medications Current Medications Medication Drug Class(es) Dates Sig (Normalized) Sig (Original) [id number] 200 actuat albuterol 0.09 mg/actuat metered dose inhaler (1 source) beta2-Adrenergic Agonist Start: 03-29-2021 take 2 puff(s) by inhalation every four hours as needed Albuterol Sulfate HFA 108 (90 Base) MCG/ACT 2 puffs as needed Inhalation every 4 hrs Mar, Active Iron Carbonyl-Vitamin C-FOS (CHEWABLE IRON PO) (3 sources) Iron Carbonyl-Vitamin C-FOS (CHEWABLE IRON PO) Take by mouth Active omeprazole 20 mg delayed release oral capsule (3 sources) Proton Pump Inhibitor Start: 07-26-2023 End: 07-25-2024 take 1 capsule by mouth before mealtime omeprazole (PriLOSEC) [address] capsule Indications: Heartburn Take 1 capsule (20 mg) by mouth in the morning. Take before meals. Do not crush or chew.. 30 capsule 11 07/26/2023 07/25/2024 Active ondansetron 4 mg disintegrating oral tablet (3 sources) Serotonin-3 Receptor Antagonist Start: 09-07-2023 take 1 tablet by mouth every six hours as needed for nausea ondansetron ODT (Zofran-ODT) 4 MG disintegrating tablet DISSOLVE 1 TABLET IN MOUTH EVERY 6 HOURS NEEDED FOR NAUSEA OR FOR VOMITING 09/07/2023 Active Pre-Marlene (1 source) Pre-Marlene Active MV-Min-Fe Fum-FA-DHA ( 1 PO) (3 sources) MV-Min- Fe Fum-FA-DHA ( 1 PO) Take 1 each by mouth Daily Active valACYclovir 500 mg oral tablet (3 sources) Herpesvirus Nucleoside Analog DNA Polymerase Inhibitor, Herpes Simplex Virus Nucleoside Analog DNA Polymerase Inhibitor, Herpes Zoster Virus Nucleoside Analog DNA Polymerase Inhibitor Start: 11-20-2023 End: 05-18-2024 take 1 tablet by mouth once daily valACYclovir (Valtrex) 500 MG tablet Indications: HSV infection Take 1 tablet (500 mg) by mouth Daily 30 tablet 5 11/20/2023 05/18/2024 Active Problems Active Problems Problem Classification Problem [...] unspecified, unspecified trimester] Onset: 10-25-2023 Episodic Other and delivery including normal (6 sources) Encounter for test, result positive; Translations: [Third trimester ] Onset: 05-20-2020 Episodic Other screening for suspected conditions (not mental disorders or infectious disease) (3 sources) Encounter for other screening follow-up; Translations: [Encounter for other specified screening] Onset: 10-25-2023 Episodic Other upper respiratory infections (5 sources) Acute pharyngitis, unspecified; Translations: [Acute upper respiratory infection, unspecified] Onset: 11-08-2020 Episodic Polyhydramnios and other problems of amniotic cavity (2 sources) Polyhydramnios, unspecified trimester, not applicable or unspecified; Translations: [Polyhydramnios, unspecified trimester, not applicable or unspecified] Onset: 11-22-2023 Episodic Previous (2 sources) Maternal care for unspecified type scar from previous delivery; Translations: [Maternal care for unspecified type scar from previous delivery] Onset: 10-25-2023 Episodic Residual codes; unclassified (1 source) 23 weeks gestation of ; Translations: [23 weeks gestation of ] Onset: 10-25-2023 Episodic Residual codes; unclassified (2 sources) Gestation period, 30 weeks; Translations: [30 weeks gestation of ] 12-18-2023 Episodic Residual codes; unclassified (2 sources) History of placenta previa; Translations: [Personal history of other complications of , childbirth and the puerperium] 12-18-2023 Episodic Screening and history of mental health [...] 03-29-2021 Episodic Other aftercare (1 source) Other penitentiary (current) drug therapy; Translations: [OTH [facility] CURRENT DRUG THERAPY] Onset: 08-19-2020 Episodic Residual codes; unclassified (1 source) History of uterine scar from previous surgery; Translations: [History of uterine scar from previous surgery] Onset: 08-28-2021 Episodic Unclassified (1 source) Hemorrhage in early , unspecified; Translations: [Hemorrhage in early , unspecified] Onset: 01-09-2017 Viral infection (1 source) COVID-19 Onset: 03-29-2021 Resolved: 03-29-2021 Results Test Name Value Interpretation Reference Range Facility Urinalysis macro (dipstick) panel (U)on 12-18-2023 Bilirubin, UA Negative Negative - 4(70) +++ mg/dL [facility] Blood, UA Negative Negative - 50 Wili/mcL [facility] Clarity, UA Clear [facility] Color, UA Yellow [facility] Glucose, UA Negative Negative - 2000(110) ++++ mg/dL [facility] Interpretation and review of laboratory results Abnormal [facility] Ketones, UA Negative Negative - 160(16) ++++ mg/dL [facility] Leukocytes, UA Negative Negative - 500+++ Yajaira/mcL [facility] Nitrite, UA Negative Negative - Positive [facility] pH, UA 6.5 5 - 9 [facility] Protein, UA Trace Negative - 2000(20) ++++ mg/dL [facility] Spec Grav, UA 1.030 1 - 1.03 [facility] Urobilinogen, UA 0.2 0.2 - 12 mg/dL [facility] Complete Blood Count Auto Di ffon 06-14-2021 Basophils (Bld) [#/Vol] 0.0 10*3/uL Normal 0.0-0.2 [facility] Comment on above: Result Comment: PERF ORMED BY: [place] [address] PATHOLOGIST TEST BORER STEPHANIE ROACH M.D. Performed By: #### C BC #### [address] Basophils/100 WBC (Bld) 0.6 % Normal . [facility] Comment on above: Performed By: #### C BC #### [address] Eosinophils (Bld) [#/Vol] 0.1 10*3/uL Normal 0.0-0.45 [facility] Comment on above: Performed By: #### C BC #### [address] Eosinophils/100 WBC (Bld) 1.7 % Normal . [facility] Comment on above: Performed By: #### C BC #### [address] Erythrocyte distribution width (RBC) [Ratio] 13.5 % Normal 11.9-15.3 [facility] Comment on above: Performed By: #### C BC #### [address] Hematocrit (Bld) [Volume fraction] 30.6 % Low 34.0-46.4 [facility] Comment on above: Performed By: #### C BC #### [address] Hemoglobin (Bld) [Mass/Vol] 10.2 g/dL Low 11.8-15.4 [facility] Comment on above: Performed By: #### C BC #### [address] Lymphocytes (Bld) [#/Vol] 2.1 10*3/uL Normal 1.00-4.8 [facility] Comment on above: Performed By: #### C BC #### [address] Lymphocytes/100 WBC (Bld) 24.1 % Normal . [facility] Comment on above: Performed By: #### C BC #### [address] MCH (RBC) [Entitic mass] 31.4 pg Normal 24.7-34.3 [facility] Comment on above: Performed By: #### C BC #### [address] MCV (RBC) [Entitic vol] 94.0 fL Normal 80-100 [facility] Comment on above: Performed By: #### C BC #### [address] Mean Corpuscular HGB Conc 33.4 g/dL Normal 32.0-35.0 [facility] Comment on above: Performed By: #### C BC #### [address] Monocytes (Bld) [#/Vol] 0.4 10*3/uL Normal 0.0-0.8 [facility] Comment on above: Performed By: #### C BC #### [address] Monocytes/100 WBC (Bld) 4.9 % Normal . [facility] Comment on above: Performed By: #### C BC #### [facility] [address] [place] [address] [place] Neutrophils (Bld) [#/Vol] 5.9 10*3/uL Normal 1.8-7.7 [facility] Comment on above: Performed By: #### C BC #### [facility] [address] [place] [id number] [facility] Neutrophils/100 WBC (Bld) 68.7 % Normal . [facility] Comment on above: Performed By: #### C BC #### [facility] [address] [place] [address] [place] Nucleated RBC/100 WBC (Bld) [Ratio] 0.1 % Normal 0-0.5 [facility] Comment on above: Performed By: #### C BC #### [facility] [address] Platelet mean volume (Bld) [Entitic vol] 8.0 fL Normal 6.3-10.7 [facility] Comment on above: Performed By: #### C BC #### [facility] [address] [place] [address] [place] Platelets (Bld) [#/Vol] 298 10*3/uL Normal 150-450 [facility] Comment on above: Performed By: #### C BC #### [facility] [address] [place] [address] [place] RBC (Bld) [#/Vol] 3.25 10*6/uL Low 3.60-5.00 [facility] Comment on above: Performed By: #### C BC #### [facility] [address] [place] [address] [place] WBC (Bld) [#/Vol] 8.6 10*3/uL Normal 4.5-11.0 [facility] Comment on above: Performed By: #### C BC #### [facility] [address] [place] [address] [place] Dipstick and Microscopicon 0 06-14-2021 Appearance (U) Clear Normal Clear [facility] Comment on above: Order Comment: Name Collection Type:: Clean-Voided Midstream Performed By: #### A DDONUAPLUS, OBUDS #### [facility] [address] [place] [address] [place] Bacteria,Urine None Seen Normal None Seen [facility] Comment on above: Order Comment: Name Collection Type:: Clean-Voided Midstream Performed By: #### A DDONUAPLUS, OBUDS #### [place] [address] [place] Bilirubin,Urine Negative Normal Negative [facility] Comment on above: Order Comment: Name Collection Type:: Clean-Voided Midstream Performed By: #### A DDONUAPLUS, OBUDS #### [address] Color (U) Yellow Normal Yellow [facility] Comment on above: Order Comment: Name Collection Type:: Clean-Voided Midstream Performed By: #### A DDONUAPLUS, OBUDS #### [place] [address] [place] Glucose Ql (U) Normal Normal Normal [facility] Comment on above: Order Comment: Name Collection Type:: Clean-Voided Midstream Performed By: #### A DDONUAPLUS, OBUDS #### [place] [address] [place] Hyaline Casts,Urine 0-8 Normal 0-8 [facility] Comment on above: Order Comment: Name Collection Type:: Clean-Voided Midstream Result Comment: PERF ORMED BY: [place] [address] PATHOLOGIST TEST BORER STEPHANIE ROACH M.D. Performed By: #### A DDONUAPLUS, OBUDS #### [place] [address] [place] Ketones Ql (U) Negative Normal Negative [facility] Comment on above: Order Comment: Name Collection Type:: Clean-Voided Midstream Performed By: #### A DDONUAPLUS, OBUDS #### [place] [address] [place] Leukocyte esterase Test strip Ql (U) Negative Normal Negative [facility] Comment on above: Order Comment: Name Collection Type:: Clean-Voided Midstream Performed By: #### A HARJIT OBUDS #### [place] [address] [place] Nitrite,Urine Negative Normal Negative [facility] Comment on above: Order Comment: Name Collection Type:: Clean-Voided Midstream Performed By: #### A DDSHENA OBUDS #### [address] Occult Blood,Urine 3+ High Negative [facility] Comment on above: Order Comment: Name Collection Type:: Clean-Voided Midstream Result Comment: PERF ORMED BY: [place] [address] PATHOLOGIST TEST BORER STEPHANIE ROACH M.D. Performed By: #### A HARJIT OBUDS #### [address] pH (U) 7.5 [pH] Normal 5.0-9.0 [facility] Comment on above: Order Comment: Name Collection Type:: Clean-Voided Midstream Performed By: #### A DDSHENA OBUDS #### [address] Protein,Urine Negative Normal Negative [facility] Comment on above: Order Comment: Name Collection Type:: Clean-Voided Midstream Performed By: #### A DDSHENA OBUDS #### [place] [address] [place] RBC,Urine 20-49 High 0-4 [facility] Comment on above: Order Comment: Name Collection Type:: Clean-Voided Midstream Performed By: #### A MARIBETHUAJOHANNA OBUDS #### [address] Specificy [place],Urine 1.009 Normal 1.001-1.030 [facility] Comment on above: Order Comment: Name Collection Type:: Clean-Voided Midstream Performed By: #### A DDONUAPLUS, OBUDS #### [facility] [address] Squamous Epithelial Cell,Urine 1-2 Normal 0-2 [facility] Comment on above: Order Comment: Name Collection Type:: Clean-Voided Midstream Performed By: #### A DDONUAPLUS, OBUDS #### [place] [address] [place] Urobilinogen,Urine Normal Normal Normal [facility] Comment on above: Order Comment: Name Collection Type:: Clean-Voided Midstream Performed By: #### A DDONUAPLUS, OBUDS #### [address] WBC,Urine None Seen Normal 0-4 [facility] Comment on above: Order Comment: Name Collection Type:: Clean-Voided Midstream Performed By: #### A DDONUAPLUS, OBUDS #### [address] OB Urine Drug Screen (NO THC )on 06-14-2021 Amphetamine Screen,Urine Negative Normal Negative [facility] Comment on above: Performed By: #### A DDONUAPLUS, OBUDS #### [address] Barbiturate Screen,Urine Negative Normal Negative [facility] Comment on above: Performed By: #### A DDONUAPLUS, OBUDS #### [place] [address] [place] Benzodiazepines Screen,Urine Negative Normal Negative [facility] Comment on above: Performed By: #### A DDONUAPLUS, OBUDS #### [facility] [address] [place] [address] [place] Cocaine Screen,Urine Negative Normal Negative [facility] Comment on above: Performed By: #### A DDONUAPLUS, OBUDS #### [address] Opiate Screen,Urine Negative Normal Negative [facility] Comment on above: Performed By: #### A DDONUAPLUS, OBUDS #### [facility] [address] Phencyclidine Screen, Urine Negative Normal Negative [facility] Comment on above: Result Comment: Thes e are unconfirmed results and should not be used for legal purposes. Drug Cut-Off Concentration: AMPH 1000 ng/mL NOLBERTO 200 ng/mL BIANCA 200 ng/mL COCM 300 ng/mL OP 300 ng/mL PCP 25 ng/mL PERFORMED BY: [facility] [address] [place] [address] PATHOLOGIST TEST BORER STEPHANIE ROACH M.D. Performed By: #### A DDONUAPLUS, OBUDS #### [facility] [address] US OB 2nd/3rd Trimesteron OB 2nd/3rd [...] 4.6 cm (19 weeks, 6 days) Head Owubcwnmcogdz93.3 cm (19 weeks, 0 days) Abdominal Wgekzbjtdhduh35.6 cm (19 weeks, 0 days) Femur Length 3.1 cm (19 weeks, 3 days) PresentationBreech Weight (g) by Lhttwkhhjq98.4%* These measurements result in an estimated date [...] by Ayo Jiménez on 04/18/2021 0921 Normal [facility] Specialist Coding Summaryon 04-07-2021 Coding Summary HTMLBase 64 QhtsctncVDx1sGh+PG hlYWQ+TP0YFQNuG49d tHHxtX1FH6wACP8SOC RNXVCTIB8FAZ3eyAD4 RUwmE9PjxfXk SmqnnAQdLU26KHe6KN Z2vJbpJXjtuJ1ooFGd D0v5DaOyCS69pZ78KM rmYILkYaG0KySvvxtk bWFy W5kzYzWusODnKch+PH RhYmxlIHdpZHRoPScx UWBgYmZlaHrdCY8rLy 9yZGVyLWNvbGxhcHNl OiBj r9svPOSqOGsjTT7juQ oqH2LieQM4BFBtq0v5 Br97uXY+TTZbGDF3fE sfQSaod437RvFpr4he IDM3 dLIwFTxmHHB2Z18js7 O8NKSyUHNiPAA3fPJ0 zF6qrGwtnqzhS1RieS VdGxL3ZZI2cZFzaI7q bGln tyvjtU9uLxe+Q09ESU 3ZARYVUQ0QQdb0Z9Oh PjwvdHI+MR28LKNdUY 16tGGufHZhb8vkwOy4 JzEw ZKGdPJX1uVeeDUjti7 DjTLXmZ14gjKNmj6B5 IGNvbGxhcHNlOyBlbX A6bE5cQUacrtcta2fx dzsn Nfpjg5ifhh86uL14D1 1fUEfeSZEoWYU2TFPh LLKrdVjppr1pfD1bMi 8+DXcpn4aco7pwvYm8 IjIw JIHxneBimBuhLTZ3h1 BoXq74T9DwbHfsn4Fo Zut4zo10pOIdf6I6oK L4HOyzMDYvrH2lOIga ZnQ6 ZNVeVdYpnB50qMLwYT kzJj3atMoajLdcHP4j MFSkjzqeWRImeP1qGW FswYBhfNjmXR5lRQUd bjtm d162NrMnRSQ0OPYitO FkU4NrgH2zXtVoZVNg EVLzR7MevOWkGAxzV9 01LYnlWjB6XRStscLx Y2Fs QCNyuZwwSrH4b2P1Xz 7Fe8AidsxbEXT0YNey LLTqQlQuOfTlToB8R4 AiDmo8BHNwwTqiGB4b J3Bh UBCmxmgyhnpffOH1NR WqAKFlqT76lHEeSPpa Cj6wr3J5v484NAIkFM KfvB73Zw6fpRiiBRRt dCBU sE0cnttfi9fypnsgZh QgNANcBKp9IUf8KDAu hPiuNyGvDBX4ZcH0XQ G6jCUzaM6seIuhdrni dG9w Oyc+A69cmT2dMQE2PL U6wctkBUUueaOwIN95 LS16A8HnIomwaDPpbZ U+PVElonMifFdgFL5t YmFj w7khj5CvROwdU3MyMR LhPWicQnd1YQWqFHQ1 aMN5oL7wNLIdECnac0 A0lOY0F8PpgdXpyi0b b2xs WKCxFGopP61svJEfo3 Q6OLEehAF9NSDpcApo SlSedO10Zvu+PGNvbG omc5XaBjxml3tfq3hv dGg9 IjMwJSIgdmFsaWduPS A2b8TjUp52Y13eZCqy ZHRoPSIxNSUiIHZhbG xfvz6tnF7zNv9+PGNv bCB3 aDU3cA2pRTPkZrO8MC cxC325XbHssHFuUqhd z9iyk7byxQg7EdRsXH JdjtDtpVwwBLX4q3Zm Lz48 G40nVZdwIOTnUFLeHA XoIBJiuRjbzv3doT1v Ii8+DY0kg0rbao75pC 48dHI+GMDfUOY4mKry PSdw ZPCtjN0uSAwuQiQ5SE SfPmQzqZ46zCAwYUkc Qg1yuUeykFcuLI9fSJ Majeyqk049PkHcg0hf IDEw qEDtRPwyAAG7T52wb1 J9DVUeWVCtUXY5lDC4 hR3yhFlfpfsckXWpcC sgdmVydGljYWwtYWxp Z246 IHRvcDsnPlBhdGllbn PnXzZsUSk8Z9RjUvt7 IKFycShwOC4zvTJdCN utGy4ofCgzlZyzGX3s NTBp qwsqj835VwNzn6scNK XiwIGeXNmxPEK6I02c i8J3EPOxHLBaARM7eT M7pG0nnCkqmrxjxASd dDsg dmVydGljYWwtYWxpZ2 46IHRvcDsnPkJpcnRo PSFgbQA5TX58WD55uO Oww1R3gAN8T8ImGPZt bmct mpdwtYN3ZYWvCENudE 25Tm3hqMheQe5eFWXc QPV6LBRkpZIdT0TwbN 4kMeMnHQJaMBQrX4Uj eHQt TMnyG276BFubSpI2IX MlxfPeA4ByPSKjaCte NmB0w8S2Ej2AI8K0YZ 05HF36pOWsp0Y7wPE9 J3Bh XSLoyumwsfzbbEA2ZR DvMRHktG42Wt3gnDna Ja5zQFNgUEV0FTBrtN AlJ8PakD4rUqPmWCXg MDAw F6TplYPbAKsxY082UG hcJmA1IWSjzkZuJ3Zq VYMigXapTvK1d0E5Rg 2STPm0UM66LS88yYDm c3R5 bFB0A2JwMVVhszdves xvyCQ1HGJeBDKhvC63 Ig0soHbqAa1lNNVbHV H7VQXnyWLgA3DohE4y OiAj DXEaXKIqQ5DfjJDeDM geD266TJiiLgZ7ZQVx myOcP1FwVIQslHsrQt Q4j5H5Bq7CQBSyOU04 IFR5 zTA0DB14EC79T1IyIy wvdGFibGU+PHRhYmxl IHdpZHRoPScxMDAlJy MfbAopVE5vUm4cCNCc LWNv pPhmiJJiUuWmh0qyNF NeHAbdLY7xvOlkQ1Wk xEU2VGUcj6u8Ib00B2 4qQ1OjfUO+PGNvbCB3 aWR0 zD3hDhYvCzB4IWrxJ1 27KiVzySMyAcrbt5gg q2rylLh4CxG0VXUgnm WqoRglHDA2k4CqUg15 Y29s IHdpZHRoPSIxNSUiIH VxnRdlhj3slO2dNj5+ RCGevZK5aAC2aU1eLv PsWqX0KMjdD973LwHe cCIv Bczxw8azs6limAx6Ah IwJSIgdmFsaWduPSJ0 g8JgVm25J8DegJdqx8 NbJtx7rz56mDCoh9K0 bGU9 O8NkWJKvlogexZUdhN zfLA9eTEBbnonlCKIt iM9rJLRcQ7s9DyUiQj K6SDhgA4VkkfA8HWKg cHQg XPowULW0J88vd1B1VT NmLJRtWAK0rKV9qK9i bGlnbjogbGVmdDsgdm ZulBqfYOypABkbG755 IHRv vWkbOSYfyB8jJWCtrL AzoSohPC3eNBBelvye CnXDVbUGFrvlBV7EKR XSVQN9X9KjKvp0SFBg dHls UL5irCHoXIobYi9pdM scvAykGW7rMKTbxxxy TZTlwY2pQYBgoOEqsC dyWW0cBBZpkxenv181 OiAx YIY1MSZpqZQtP5UdnM 2bBlDbAYNsRDVxH6Jt qRAbPUxiI641QInmKs P7PHLevoOyF4SuDQDv aWdu NmD1d2O5Bd3nMn7jSp 1fFAwcTF72JU28qPPk w9S1vTF4D5OjSTCtbw sluybpeYQ8EQUtZCBy aW47 yQIaKKiwTy5vl9Q3j0 40EFArZANsoZ22Wl7j cBeeDSPrsAGLiX0wbb nqg9jhpvbwYxZnNRSa MDt0 IWj8KWOwhSkvCiYqON E9OzP6ZRH2dLTgfT3o eNhhlxhfeS7mTfq+Mz MoZGRqezC4T9WdLpo2 ZCBz uOiaUE9pxSLrFEteFf 1ufLjvyEnnLY8cHXRs oxuhXIUruA8wDDEwwG EwpXngLH3bANWcfnfn b250 KyHvYXV6IGCjoNIjW5 LstA1tAmOzUDEmRNOg S3SsfOVcINwgY104MN fdLqA7CLQopvQmI4Gm LWFs bCssOyJ7y9J5Ao2GXD 1TKFT2N6WuTjf1OPQo sSicSN8kqIPdDOwwYf 2xyVixmNmhFG5mBEAt bjtw JPYplV3pXNXopGUulD haPV2gVSTypfgxz544 HoQwHTV4BIJupDFcE9 OamH4kKaNkHCSpUHMa O3Rl eFInCIxwK722EWmzCw L4KAFzjaOfT1XfUSDm gOtxWmA3d9U0Au9QIJ wvdGQ+IQ76gx33P4Pa Ymxl Yrc7QSTyWWQ7pJO1oC 7hTGRkHLnoe5E0gYM2 H4OaajFfai6vp8twQX JfLHvoD97daIDfy9A7 IGVt mFZ7JFOdyLyyHoYmzV 93Oyc+RXQtpLsnb6Hv Cxhxq9jpu7yeoLf5If MwJSIgdmFsaWduPSJ0 b3Ai Po29Z91cIGdkESFoEK DoQJMjWYMofZprjh1e mI0xUz5+BMBizAU0nP Z9cM6nMdIdPoZ2YGoh Z249 CaIgfJMiQqqts4eav1 xxnLz7RvVpLCLsceYk sEceTLZ8a6DmZn94V0 MbsOalf4MxAtc4jz51 dGQg h8A1fHV0D9SeJSIrfu bliPMwcDteLE3tYDCh ouieHCNwoJ5aXYFuZ9 y5MoXuQyY1IAksJ8Mt bnQ6 IGJvbGQgMTBwdCBUaW 2zcjerf6ylradaDnBy ZMWcWRk7OOf3LXTvwA hrFgCtNVG6FhT3PEY4 aWNh oJ3jlJugnxjduF1oVc c+KHp5l0wzoAOqCH3w sYA8ZF25NF35gUGae6 R0pKY3I2NzGCHmcdot cmln dQW7GVXuRGLgkE16Xj 2cpGueOm7mEIRoXSO9 MJFrkMTiY1JusF7zZh BsWBSuHSYrT1EcyITo YWxp O534HCncLhQ7WEMjxn FnM0OiXZCokOtnWcF1 l9I1Gh0HIV08ZV13ZU 27pXHhj1O5pLB2B8Fe ZGRp dkksyrxdzOT2VHKrWU ZeaA23Iu9enAzoOu7y OOAeDEK7BARneZBpI7 IgeD8mAzTcRZOtATAn O3Rl jLDmOMujE520XPzbVj D1TSTnxgHzU1KsJZLx tRxeKfM8k0A3Tm0UEg 87XQ74LG90bOMoq0X0 bGU9 T7SoTQEfbhnjdzylmS Z8XRNmBFHjbB34Bp4z wFujSq8zBGPpVIH2AX XduSDbD0FwiE5wOfQw MDAw WZLuF0GttKLaZQhqI2 19SCluAxB0RBItflOf I0RzZPNspXykDtT5p6 I7St7FESwohzs0E1Jn Pjwv dHI+LH88MAOgWC72hW NysBRfr1mmsTw1MvTm KABfDXL8rSeiQTfdl5 KdOSOhZ30qaLEft4U7 IGNv bGx (more content not included)... 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 It has not been cleared or approved by the [place] Food and Drug Administration. The FDA has determined that such clearance or approval is not necessary. This test is used for clinical purposes. It should not be regarded as investigational or research. Performed By: #### C BC #### [facility] [address] [place], [place] [id number] Sunshine Carlos CULTURE URINEon 11-10-2020 CULTURE URINE [...] F Tetracycline <=0.25 S F Normal [facility] Comment on above: Performed By: #### C BC #### [facility] [address] [place] [address] Sunshine Carlos CHLAMYDIA/GONOCOCCUS TINA (SW AB/URINE/PAPon 11-09-2020 Chlamydia trachomatis, TINA Negative Normal Negative [facility] Comment on above: Performed By: #### C T/NGNA #### [facility] [address] [place] [address] Sunshine Carlos Neisseria gonorrhoeae, TINA Negative Normal Negative [facility] Comment on above: Performed By: #### C T/NGNA #### [facility] [address] [place] [address] Sunshine Carlos Covid-19 PCR ([facility])on 10-18 SARS-CoV-2 (COVID-19) RNA TINA+probe Ql (Unsp spec) Not detected Normal NOT DETECTED [facility] Comment on above: Result Comment: This test is not yet approved or cleared by the [place] FDA. When there are no FDA-approved or cleared tests available, and other criteria are met, FDA can make tests available under an emergency access mechanism called an Emergency Use Authorization (EUA). The EUA for this test is supported by the Electoral Officer of Health and Human Service's (HHS's) declaration [...] Performed By: #### C VDAGS, CVDTBH #### [facility] [address] [place] [address] Sunshine Carlos ER URINE PROFILEon Bilirubin Ql (U) Negative Normal NEGATIVE [facility] Comment on above: Performed By: #### C BC #### [facility] Laboratory [address] [address] Sunshine Breanna Clarity (U) CLEAR Normal CLEAR [facility] Comment on above: Performed By: #### C BC #### [facility] Laboratory [address] [place] [address] Sunshine Breanna Color (U) LT. YELLOW Normal YELLOW [facility] Comment on above: Performed By: #### C BC #### [facility] Laboratory [address] [place] [address] Sunshine Breanna ERUAHD A micrscopic examination will be performed if indicated. Normal [facility] Comment on above: Performed By: #### C BC #### [facility] Laboratory [address] [place] [address] Sunshine Breanna Glucose Ql (U) Negative Normal NEGATIVE The [facility] Comment on above: Performed By: #### C BC #### [facility] Laboratory [address] [place] [address] Sunshine Breanna Hemoglobin Ql (U) LARGE Abnormal NEGATIVE The [facility] Comment on above: Performed By: #### C BC #### [facility] Laboratory [address] [place] [address] Sunshine Breanna Ketones Ql (U) Negative Normal NEGATIVE [facility] Comment on above: Performed By: #### C BC #### [facility] Laboratory [address] [place] [address] Sunshine Breanna LEUKOCYTES Negative Normal NEGATIVE [facility] Comment on above: Performed By: #### C BC #### [facility] Laboratory [address] [place] [address] Sunshine Breanna Nitrite Ql (U) Negative Normal NEGATIVE [facility] Comment on above: Performed By: #### C BC #### [facility] Laboratory [address] [place] [address] Sunshine Breanna pH (U) 5.5 [pH] Normal 5-9 [facility] Comment on above: Performed By: #### C BC #### [facility] Laboratory [address] [place] [address] Sunshine Breanna SPEC GRAVITY >=1.030 Abnormal 1.005-<=1.02 5 [facility] Comment on above: Performed By: #### C BC #### [facility] Laboratory [address] [place] [address] Sunshine Carlos UA PROTEIN Negative Normal NEGATIVE/ TRACE [facility] Comment on above: Performed By: #### C BC #### [facility] Laboratory [address] [place] [address] Sunshine Carlos UR MICRO IND INDICATED Normal [facility] Comment on above: Performed By: #### C BC #### [facility] Laboratory [address] [place] [address] Sunshine Carlos Urobilinogen Qn (U) 0.2 {Braden'U}/dL Normal 0.2 - 1. 0 [facility] Comment on above: Performed By: #### C BC #### [facility] Laboratory [address] [place] [address] Sunshine Carlos URon 11-08-2020 , QUAL Negative Normal NEGATIVE [facility] Comment on above: Performed By: #### C BC #### [facility] Laboratory [address] [place], [place] [id number] Sunshine Carlos STREPT SCREENon 11-08-2020 STREP SCREEN A Positive Abnormal NEGATIVE The [facility] Comment on above: Performed By: #### C BC #### [facility] Laboratory [address] [place] [address] Sunshine Carlos SYMPTOMATIC COVID-19 ANTIGEN on 11-08-2020 EUA Statement SEE BELOW Normal The [facility] Comment on above: Result Comment: This [...] is revoked sooner. Performed By: #### C IVELISSE CVDTB #### [facility] Laboratory [address] [place] [address] Sunshinevinita Carlos SARS-CoV-2 (COVID-19) RNA TINA+probe Ql (Unsp spec) Negative Normal NEGATIVE [facility] Comment on above: Result Comment: CONF IRMATION BY PCR PENDING PER CDC GUIDELINES/ SYMPTOMATIC PATIENT. Performed By: #### C IVELISSE CVDTB #### [facility] Laboratory [address] [place] [address] Sunshine Breanna URINE MICROSCOPIC ONLYon AMORPHOUS CRYSTALS FEW Normal The [facility] Comment on above: Performed By: #### C BC #### [facility] Laboratory [address] [place] [address] Sunshine Breanna BACTERIA SMALL Abnormal NONE SEEN [facility] Comment on above: Performed By: #### C BC #### [facility] Laboratory [address] [place] [address] Sunshine Breanna Bacteria identified Cx Nom (U) INDICATED Normal [facility] Comment on above: Performed By: #### C BC #### [facility] Laboratory [address] [place] [address] Sunshine Breanna CAST NONE SEEN Normal NONE SEEN [facility] Comment on above: Performed By: #### C BC #### [facility] Laboratory [address] [place] [address] Sunshine Breanna Crystals LM Nom (Urine sed) SEEN Abnormal NONE SEEN [facility] Comment on above: Performed By: #### C BC #### [facility] Laboratory [address] [place], [place] [id number] Sunshine Breanna Epithelial cells LM Ql (Urine sed) MODERATE Abnormal NONE SEEN /RARE [facility] Comment on above: Performed By: #### C BC #### [facility] Laboratory [address] [place] [address] Sunshine Breanna MUCOUS MODERATE Abnormal NONE SEEN [facility] Comment on above: Performed By: #### C BC #### [facility] Laboratory [address] [address] Sunshine Carlos RBC 2-5 Abnormal 0-2 [facility] Comment on above: Performed By: #### C BC #### [facility] Laboratory [address] [place] [address] Sunshine Carlos WBC 5-10 Abnormal NONE SEEN [facility] Comment on above: Performed By: #### C BC #### [facility] Laboratory [address] [place], [place] [id number] Sunshine Carlos US SINGLE QUAD RT UPPERon US SINGLE [...] EDMUNDO GUZMAN Date: 2020-08-19 15:23 Normal [facility] AMYLASEon 08-17-2020 Amylase [Catalytic activity/Vol] 49 U/L Normal 31-110 [facility] Comment on above: Performed By: #### C BC #### [facility] Laboratory [address] [place] [address] Sunshine Carlos CBC AUTO DIFFon 08-17-2020 BASO # 0.0 103/ul Normal 0.0-0.1 [facility] Comment on above: Performed By: #### C BC #### [facility] Laboratory [address] [id number] Sunshine Breanna Basophils/100 WBC (Bld) 0.6 % Normal 0.2-2.0 [facility] Comment on above: Performed By: #### C BC #### [facility] Laboratory [address] [place], [place] [id number] Sunshine Breanna EO # 0.1 103/ul Normal 0.0-0.[address] [facility] Comment on above: Performed By: #### C BC #### [facility] Laboratory [address] [place], [place] [id number] Sunshine Breanna Eosinophils/100 WBC (Bld) 1.3 % Normal 0.9-7.[address] [facility] Comment on above: Performed By: #### C BC #### [facility] Laboratory [address] [place] [address] Sunshine Breanna Erythrocyte distribution width (RBC) [Ratio] 13.0 % Normal 11.0-15.[address] [facility] Comment on above: Performed By: #### C BC #### [facility] Laboratory [address] [place], [place] [id number] Sunshine Breanna Hematocrit (Bld) [Volume fraction] 39.1 % Normal 36.0-48.[address] [facility] Comment on above: Performed By: #### C BC #### [facility] Laboratory [address] [place], [place] [id number] Sunshine Breanna Hemoglobin (Bld) [Mass/Vol] 13.2 g/dL Normal 12.0-16.[address] [facility] Comment on above: Performed By: #### C BC #### [facility] Laboratory [address] [place] [address] Sunshine Breanna IG # 0.01 10e3/ul Normal 0.00-0.[address] [facility] Comment on above: Performed By: #### C BC #### [facility] Laboratory [address] [place] [address] Sunshine Breanna IG % 0.1 % Normal 0.0-0.[address] [facility] Comment on above: Performed By: #### C BC #### [facility] Laboratory [address] [place] [address] Sunshine Breanna LYMPH # 2.4 103/ul Normal 1.2-3.[address] [facility] Comment on above: Performed By: #### C BC #### [facility] Laboratory [address] [place], [place] [id number] Sunshine Breanna Lymphocytes/100 WBC (Bld) 33.5 % Normal 20.5-60.[address] [facility] Comment on above: Performed By: #### C BC #### [facility] Laboratory [address] [place] [address] Sunshine Carlos MANUAL DIFF REQ NO Normal [facility] Comment on above: Performed By: #### C BC #### [facility] Laboratory [address] [place] [address] Sunshinevinita Carlos MCH (RBC) [Entitic mass] 30.6 pg Normal 26.7-34.[address] [facility] Comment on above: Performed By: #### C BC #### [facility] Laboratory [address] [place] [address] Sunshinevinita Carlos MCHC (RBC) [Mass/Vol] 33.8 g/dL Normal 29.9-35.[address] [facility] Comment on above: Performed By: #### C BC #### [facility] Laboratory [address] [place] [address] Sunshinevinita Carlos MCV (RBC) [Entitic vol] 90.7 fL Normal 81.0-99.0 [facility] Comment on above: Performed By: #### C BC #### [facility] Laboratory [address] [place] [address] Sunshine Breanna MONO # 0.3 103/ul Normal 0.3-0.[address] [facility] Comment on above: Performed By: #### C BC #### [facility] Laboratory [address] [place] [address] Sunshine Breanna Monocytes/100 WBC (Bld) 4.1 % Normal 1.7-12.0 [facility] Comment on above: Performed By: #### C BC #### [facility] Laboratory [address] [place] [address] Sunshine Breanna NEUT # 4.2 103/ul Normal 1.4-6.[address] [facility] Comment on above: Performed By: #### C BC #### [facility] Laboratory [address] [place] [address] Sunshine Carlos Neutrophils/100 WBC (Bld) 60.4 % Normal 43.0-75.[address] [facility] Comment on above: Performed By: #### C BC #### [facility] Laboratory [address] [place] [address] Sunshine Carlos Platelet mean volume (Bld) [Entitic vol] 10.7 fL Normal 9.5-13.[address] [facility] Comment on above: Performed By: #### C BC #### [facility] Laboratory [address] [place] [address] Sunshine Carlos PLT 321 103/ul Normal 150-450 [facility] Comment on above: Performed By: #### C BC #### [facility] Laboratory [address] [place] [address] Sunshine Carlos RBC 4.31 106/ul Normal 4.20-5.[address] [facility] Comment on above: Performed By: #### C BC #### [facility] Laboratory [address] [place] [address] Sunshine Carlos WBC 7.0 103/ul Normal 4.0-11.[address] [facility] Comment on above: Performed By: #### C BC #### [facility] Laboratory [address] [place] [address] Sunshine Carlos LIPASEon 08-17-2020 Lipase [Catalytic activity/Vol] 97.0 U/L Normal 23.0-300.[address] [facility] Comment on above: Performed By: #### T CANDE, CMP, LIPA, JANINE #### [facility] Laboratory [address] [place] [address] Sunshine Carlos PROF 14(COMP METB)on 021 Albumin [Mass/Vol] 3.5 g/dL Normal 3.5-5.0 [facility] Comment on above: Performed By: #### T CANDE, CMP, LIPA, JANINE #### [facility] Laboratory [address] [place] [address] Sunshine Breanna Albumin/Globulin [Mass ratio] 0.8 {ratio} Normal [facility] Comment on above: Performed By: #### T CANDE, CMP, LIPA, JANINE #### [facility] Laboratory [address] [address] Sunshine Breanna ALP [Catalytic activity/Vol] 64 U/L Normal 38-[address] [facility] Comment on above: Performed By: #### T CANDE, CMP, LIPA, JANINE #### [facility] Laboratory [address] [place] [address] Sunshine Breanna ALT [Catalytic activity/Vol] 12 U/L Normal 9-[address] [facility] Comment on above: Performed By: #### T CANDE, CMP, LIPA, JANINE #### [facility] Laboratory [address] [place] [address] Sunshine Breanna Anion gap [Moles/Vol] 14.9 mmol/L Normal [facility] Comment on above: Performed By: #### T CANDE, CMP, LIPA, JANINE #### [facility] Laboratory [address] [place] [address] Sunshine Breanna AST [Catalytic activity/Vol] 9 U/L Critically low 14-[address] [facility] Comment on above: Performed By: #### T CANDE, CMP, LIPA, JANINE #### [facility] Laboratory [address] [place] [address] Sunshine Breanna Bilirubin [Mass/Vol] 0.2 mg/dL Normal 0.2-1.[address] [facility] Comment on above: Performed By: #### T CANDE, CMP, LIPA, JANINE #### [facility] Laboratory [address] [place] [address] Sunshine Breanna Calcium [Mass/Vol] 8.9 mg/dL Normal 8.4-10.2 [facility] Comment on above: Performed By: #### T CANDE, CMP, LIPA, JANINE #### [facility] Laboratory [address] [address] Sunshine Breanna Chloride [Moles/Vol] 108 mmol/L Critically high 98-[address] [facility] Comment on above: Performed By: #### T CANDE, CMP, LIPA, JANINE #### [facility] Laboratory [address] [address] Sunshine Breanna CO2 [Moles/Vol] 23.8 mmol/L Normal 22.0-30.0 [facility] Comment on above: Performed By: #### T CANDE, CMP, LIPA, JANINE #### [facility] Laboratory [address] [address] Sunshine Breanna Creatinine [Mass/Vol] 0.81 mg/dL Normal 0.52-1.[address] [facility] Comment on above: Performed By: #### T CANDE, CMP, LIPA, JANINE #### [facility] Laboratory [address] [address] Sunshine Breanna EGFR-AF SURINAMESE >60 Normal >=60 [facility] Comment on above: Performed By: #### T CANDE, CMP, LIPA, JANINE #### [facility] Laboratory [address] [address] Sunshine Breanna EGFR-NON AF SURINAMESE >60 Normal >=[address] [facility] Comment on above: Performed By: #### T CANDE, CMP, LIPA, JANINE #### [facility] Laboratory [address] [address] Sunshine Breanna Globulin (S) [Mass/Vol] 4.4 g/dL Normal [facility] Comment on above: Performed By: #### T CANDE, CMP, LIPA, JANINE #### [facility] Laboratory [address] [address] Sunshine Breanna Glucose [Mass/Vol] 92 mg/dL Normal 74-106 [facility] Comment on above: Performed By: #### T CANDE, CMP, LIPA, JANINE #### [facility] Laboratory [address] [address] Sunshine Breanna Potassium [Moles/Vol] 3.7 mmol/L Normal 3.4-5.[address] [facility] Comment on above: Performed By: #### T CANDE, CMP, LIPA, JANINE #### [facility] Laboratory [address] [address] Sunshine Breanna Protein [Mass/Vol] 7.9 g/dL Normal 6.1-8.2 [facility] Comment on above: Performed By: #### T CANDE, CMP, LIPA, JANINE #### [facility] Laboratory [address] [place] [address] Sunshine Breanna Sodium [Moles/Vol] 143 mmol/L Normal 137-145 [facility] Comment on above: Performed By: #### T CANDE, CMP, LIPA, JANINE #### [facility] Laboratory [address] [place] [address] Sunshine Breanna Urea nitrogen [Mass/Vol] 14.0 mg/dL Normal 7.0-17.0 [facility] Comment on above: Performed By: #### T CANDE, CMP, LIPA, JANINE #### [facility] Laboratory [address] [place] [address] Sunshine Breanna Urea nitrogen/Creatinine [Mass ratio] 17.3 mg/mg Normal [facility] Comment on above: Performed By: #### T CANDE, CMP, LIPA, JANINE #### [facility] Laboratory [address] [place] [address] Sunshine Breanna PREG QUANT HCGon 06-02-2020 HCG QUANT 14 mIU/mL Normal [facility] Comment on above: Performed By: #### C IVELISSE, CVDTB #### [facility] Laboratory [address] [place] [address] Sunshine Breanna HCG RANGE SEE BELOW Normal [facility] Comment on above: Result Comment: 5-50 0-1 WEEK 40-300 1-2 WEEKS 100-1,000 2-3 WEEKS 500-6,000 3-4 WEEKS 5,000-200,000 1-2 MONTHS 10,000-100,000 2-3 MONTHS 3,000-50,000 2ND TRIMESTER 1,000-50,000 3RD TRIMESTER Performed By: #### C JAYMIES, CVDTBH #### [facility] Laboratory [address] [place] [address] Sunshine Breanna PREG QUANT HCGon 05-20-2020 HCG QUANT 13 mIU/mL Normal [facility] Comment on above: Performed By: #### C BC #### [facility] Laboratory [address] [place] [address] Sunshine Breanna HCG RANGE SEE BELOW Normal [facility] Comment on above: Result Comment: 50 0-1 WEEK 40-300 1-2 WEEKS 100-1,000 2-3 WEEKS 500-6,000 3-4 WEEKS 5,000-200,000 1-2 MONTHS 10,000-100,000 2-3 MONTHS 3,000-50,000 2ND TRIMESTER 1,000-50,000 3RD TRIMESTER Performed By: #### C BC #### [facility] Laboratory [address] [place] [address] Sunshine Breanna PREG QUANT HCGon 05-06-2020 HCG QUANT 20 mIU/mL Normal [facility] Comment on above: Performed By: #### P REGQNT #### [facility] Laboratory [address] [place] [address] Sunshine Breanna HCG RANGE SEE BELOW Normal [facility] Comment on above: Result Comment: 50 0-1 WEEK 40-300 1-2 WEEKS 100-1,000 2-3 WEEKS 500-6,000 3-4 WEEKS 5,000-200,000 1-2 MONTHS 10,000-100,000 2-3 MONTHS 3,000-50,000 2ND TRIMESTER 1,000-50,000 3RD TRIMESTER Performed By: #### P REGQNT #### [facility] Laboratory [address] [place] [address] Sunshine Breanna PREG QUANT HCGon 04-29-2020 HCG QUANT 21 mIU/mL Normal [facility] Comment on above: Performed By: #### P REGQNT #### [facility] Laboratory [address] [place] [address] Sunshine Breanna HCG RANGE SEE BELOW Normal [facility] Comment on above: Result Comment: 550 0-1 WEEK 40-300 1-2 WEEKS 100-1,000 2-3 WEEKS 500-6,000 3-4 WEEKS 5,000-200,000 1-2 MONTHS 10,000-100,000 2-3 MONTHS 3,000-50,000 2ND TRIMESTER 1,000-50,000 3RD TRIMESTER Performed By: #### P REGQNT #### [facility] Laboratory [address] [place] [address] Sunshine Carlos ABO AND RH TYPEon 04-22-2020 ABO and Rh group Nom (Bld) ABO Rh Typing O Rh Positive Normal [facility] Comment on above: Performed By: #### C BC #### [facility] Laboratory [address] [place], [place] [address] Sunshine Carlos PREG QUANT HCGon 04-22-2020 HCG QUANT 37 mIU/mL Normal [facility] Comment on above: Performed By: #### P REGQNT #### [facility] Laboratory [address] [id number] Sunshine Carlos HCG RANGE SEE BELOW Normal [facility] Comment on above: Result Comment: 5-50 0-1 WEEK 40-300 1-2 WEEKS 100-1,000 2-3 WEEKS 500-6,000 3-4 WEEKS 5,000-200,000 1-2 MONTHS 10,000-100,000 2-3 MONTHS 3,000-50,000 2ND TRIMESTER 1,000-50,000 3RD TRIMESTER Performed By: #### P REGQNT #### [facility] Laboratory [address] [id number] Sunshine Carlos ED Note-Physicianon 10-16-19 20 ED Note-Physician [id number] 0EC#[id number]:[id number] Normal [facility] Chlam and gonorrhea: Amp, Ur ine -UHEon 01-12-2017 Chlam and gonorrhea: Amp, Urine -UHE Negative Negative THIS TEST WAS PERFORMED USING A REAL TIME PCR ASSAY. Normal [facility] Comment on above: Performed By: #### R NABU ####[address] [address] Beta HCG (Qual), Urine - MCH on 01-09-2017 HCG.beta subunit ( test) Ql (U) Positive Abnormal Negative [facility] Comment on above: Performed By: #### H CGUMD, UR1MD ####[id number] [place], [place] [address] Beta HCG, quant, S - MCHon 1 Beta HCG, quant, S - MCH 21214.0 mIU/mL Normal [facility] Comment on above: Result Comment: FEMA PASCUAL GESTATIONAL AGERESULTS <10 ARE CONSIDERED NEGATIVE4 WEEKS 4700-695520 mIU/mL5 WEEKS 3660-961983 mIU/mL6 WEEKS 63471-290574 mIU/mL7 WEEKS 76372-832352 mIU/mL8 WEEKS 02470-141246 mIU/mL9 WEEKS 56281-398898 mIU/mL10 WEEKS 09162-654140 mIU/mL11 WEEKS 6480-855860 mIU/ml12 WEEKS 6740-803128 mIU/mL13-27 WEEKS 8200-733323 mIU/mL28-40 WEEKS 2320-24565 mIU/mL Performed By: #### C BCMD, PTPTMD, TYSCMD, QHCGMD ####[address] [place], [place] [address] CBC, ELECTRONIC DIFF, PLATEL ET - MCHon 01-09-2017 Absolute Basophil 0.0 K/uL Normal 0.0-0.23 [facility] Comment on above: Performed By: #### C BCMD, PTPTMD, TYSCMD, QHCGMD ####[address] [place], [place] [address] Absolute Grans 5.9 K/uL Normal 1.8-7.7 [facility] Comment on above: Performed By: #### C BCMD, PTPTMD, TYSCMD, QHCGMD ####[address] [place], [place] [address] Basophils/100 WBC Auto (Bld) 0.5 % Normal 0-2 [facility] Comment on above: Performed By: #### C BCMD, PTPTMD, TYSCMD, QHCGMD ####[address] [place], [place] [address] Eosinophils 0.1 10*3/uL Normal 0.0-0.7 [facility] Comment on above: Performed By: #### C BCMD, PTPTMD, TYSCMD, QHCGMD ####[address] [place], [place] [address] Eosinophils/100 leukocytes 1.0 % Normal 0-5.0 [facility] Comment on above: Performed By: #### C BCMD, PTPTMD, TYSCMD, QHCGMD ####[facility] [place], [place] [address] Erythrocytes (RBC) 13.8 % Normal 11.5-14.5 [facility] Comment on above: Performed By: #### C BCMD, PTPTMD, TYSCMD, QHCGMD ####[place] [address] [place], [place] [address] Grans Electronic 64.6 % Normal 50-70 [facility] Comment on above: Performed By: #### C BCMD, PTPTMD, TYSCMD, QHCGMD ####[place] [address], [place] [address] Hematocrit (HCT) 34.5 % Low 35.0-45.0 [facility] Comment on above: Performed By: #### C BCMD, PTPTMD, TYSCMD, QHCGMD ####[place] [address], [place] [address] Hemoglobin mass conc (Bld) 31.0 pg Normal 27.0-34.0 [facility] Comment on above: Performed By: #### C BCMD, PTPTMD, TYSCMD, QHCGMD ####[address] [address] Hemoglobin mass conc (Bld) 11.7 g/dL Normal 11.7-15.5 [facility] Comment on above: Performed By: #### C BCMD, PTPTMD, TYSCMD, QHCGMD ####[address] [address] Lymphocytes 2.6 10*3/uL Normal 1.0-4.8 [facility] Comment on above: Performed By: #### C BCMD, PTPTMD, TYSCMD, QHCGMD ####[address] [address] Lymphocytes/100 leukocytes 28.7 % Normal 22.0-44.0 [facility] Comment on above: Performed By: #### C BCMD, PTPTMD, TYSCMD, QHCGMD ####[address] [address] MCH 3.78 M/uL Low 3.8-5.1 [facility] Comment on above: Performed By: #### C BCMD, PTPTMD, TYSCMD, QHCGMD ####[place] [address], [place] [address] MCH 9.1 K/uL Normal 4.5-11.0 [facility] Comment on above: Performed By: #### C BCMD, PTPTMD, TYSCMD, QHCGMD ####[facility] [place], [place] [address] MCV 91.0 fL Normal 81.0-100.0 [facility] Comment on above: Performed By: #### C BCMD, PTPTMD, TYSCMD, QHCGMD ####[facility] [place], [place] [address] Monocytes 0.5 10*3/uL Normal 0.0-0.9 [facility] Comment on above: Performed By: #### C BCMD, PTPTMD, TYSCMD, QHCGMD ####[place] [address] [place], [place] [address] Monocytes/100 leukocytes 5.2 % Normal 0-7.0 [facility] Comment on above: Performed By: #### C BCMD, PTPTMD, TYSCMD, QHCGMD ####[facility], [place] [address] Platelet mean volume (PMV) 8.3 fL Normal 7.5-11.2 [facility] Comment on above: Performed By: #### C BCMD, PTPTMD, TYSCMD, QHCGMD ####[facility] [place], [place] [address] Platelets 281 10*3/uL Normal 150-400 [facility] Comment on above: Performed By: #### C BCMD, PTPTMD, TYSCMD, QHCGMD ####[place] [address] [place], [place] [address] ED PROVIDERon 01-09-2017 [facility] CAC NOTES Normal [facility] NOTES Normal [facility] OSUHIMCACCODINGOPEDon 2016 [facility] CAC Coding OP/ED Report Normal [facility] OSUHIMCACENCSUMon 01-09-2017 [facility] HIM CAC Encounter Summary Report Normal [facility] PT*PTT - MCHon 01-09-2017 aPTT 33 s Normal 24.6-35.9 [facility] Comment on above: Performed By: #### C BCMD, PTPTMD, TYSCMD, QHCGMD ####[place] [address], [place] [address] INR Coag RelTime (Bld) 1.1 {INR} Normal 0.87-1.15 [facility] Comment on above: Performed By: #### C BCMD, PTPTMD, TYSCMD, QHCGMD ####[place] [address], [place] [address] MCH 13.3 sec Normal 11.5-14.3 [facility] Comment on above: Performed By: #### C BCMD, PTPTMD, TYSCMD, QHCGMD ####[place] [address] [place], [place] [address] [facility] ABO/RH(D) - [facility]: O POSITIVE ANTIBODY SCREEN - MCH: Negative Normal [facility] Comment on above: Performed By: #### C BCMD, PTPTMD, TYSCMD, QHCGMD ####[place] [address], [place] [address] Urinalysis reflex to Cult - [facility] 01-09-2017 COMMENT URINE None Normal [facility] Comment on above: Performed By: #### H CGUMD, UR1MD ####[place] [address], [place] [address] Squamous Epithelial 2+ /HPF [facility] Comment on above: Performed By: #### H CGUMD, UR1MD ####[place] [address], [place] [address] Urine, bacteria in sediment Absent Normal Absent [facility] Comment on above: Performed By: #### H CGUMD, UR1MD ####[place] [address] [place], [place] [address] Urine, erythrocytes in sediment by area 0-2 Normal 0-2 [facility] Comment on above: Performed By: #### H CGUMD, UR1MD ####[place] [address], [place] [address] Urine, leukocytes in sedmiment 0-5 Normal 0-5 [facility] Comment on above: Performed By: #### H CGUMD, UR1MD ####[place] [address] [place], [place] [address] Bilirubin Urine Negative Normal Negative [facility] Comment on above: Performed By: #### H CGUMD, UR1MD ####[place] [address] [place], [place] [address] Blood Urine Moderate Abnormal Negative [facility] Comment on above: Performed By: #### H CGUMD, UR1MD ####[place] [address], [place] [address] Nitrites Urine Negative Normal Negative [facility] Comment on above: Performed By: #### H CGUMD, UR1MD ####[place] [address] [place], [place] [address] Protein Urine Negative Normal Negative [facility] Comment on above: Performed By: #### H CGUMD, UR1MD ####[place] [address] [place], [place] [address] Specific Holmes urine 1.020 Normal 1.001-1.035 [facility] Comment on above: Performed By: #### H CGUMD, UR1MD ####[place] [address] [place], [place] [address] Urine, appearance Clear Normal Clear [facility] Comment on above: Performed By: #### H CGUMD, UR1MD ####[place] [address] [place], [place] [address] Urine, color Yellow Normal YEL,DKYEL [facility] Comment on above: Performed By: #### H CGUMD, UR1MD ####[place] [address], [place] [address] Urine, glucose presence Negative Normal Negative [facility] Comment on above: Performed By: #### H CGUMD, UR1MD ####[place] [address], [place] [address] Urine, ketones presence Negative Normal Negative [facility] Comment on above: Performed By: #### H CGUMD, UR1MD ####[place] [address], [place] [address] Urine, leukocyte esterase presence Negative Normal Negative [facility] Comment on above: Performed By: #### H CGUMD, UR1MD ####[place] [address], [place] [address] Urine, pH 6.0 [pH] Normal 5.0-7.0 [facility] Comment on above: Performed By: #### H CGUMD, UR1MD ####[place] [address] [place], [place] [address] Urobilinogen urine 0.2 EU/dL Normal <2.0 [facility] Comment on above: Performed By: #### H CGUMD, UR1MD ####[place] [address] [place], [place] [address] Vital Signs Date Time Vital Sign Value Performing Clinician Facility 12-18-2023 15:06-0400 Body mass index (BMI) [Ratio] 35.54 kg/m2 [employer] Work Phone: [facility] 12-18-2023 15:06-0400 Body weight 106.03 kg [employer] Work Phone: [facility] 12-18-2023 15:06-0400 Diastolic blood pressure 68 mm[Hg] Dmitriy Rodo [employer] Work Phone: [facility] 12-18-2023 15:06-0400 Systolic blood pressure 108 mm[Hg] Dmitriy Rodo [employer] Work Phone: [facility] 03-29-2021 11:15-0500 Body height 172.72 cm Arminda Holt Other [email or web address] Other 03-29-2021 11:15-0500 Body mass index (BMI) [Ratio] 36.49 kg/m2 Arminda Holt Other [email or web address] Other 03-29-2021 11:15-0500 Body temperature 97 [degF] Arminda Holt Other [email or web address] Other 03-29-2021 11:15-0500 Body weight 108.86 kg Arminda Holt Other [email or web address] Other 03-29-2021 11:150500 SaO2% (BldA) [Mass fraction] 99 % Arminda Holt Other [email or web address] Other Encounters Encounter Date Encounter Type Care Provider Facility Start: 12-19-2023 End: 12-19-2023 ambulatory [facility] Start: 12-18-2023 End: 12-18-2023 ambulatory DMITRIY RODO Not Available Start: 12-18-2023 End: 12-18-2023 flow sheet Dmitriy Rodo DO Work Phone: [facility] Comment on above: Third trimester preg kianna; 30 weeks gestation of ; H/O placenta previa Start: 12-18-2023 End: 12-18-2023 Bamboo flowsheet Dmitriy Rodo DO Work Phone: [facility] Start: 12-18-2023 End: 12-18-2023 Bamboo flowsheet Dmitriy Rodo DO Work Phone: [facility] Start: 12-04-2023 End: 12-04-2023 ambulatory JANINE GUZMAN Not Available Start: 11-22-2023 End: 11-22-2023 ambulatory [facility] Start: 11-20-2023 End: 11-20-2023 ambulatory DMITRIY RODO Not Available Start: 10-25-2023 End: 10-25-2023 ambulatory DMITRIY [facility] Start: 10-24-2023 End: 10-24-2023 ambulatory JANINE THOMAS Not Available Start: 09-24-2023 End: 09-24-2023 ambulatory DMITRIY RODO Not Available Start: 08-22-2023 End: 08-22-2023 ambulatory DMITRIY RODO Not Available Start: 07-26-2023 End: 07-26-2023 ambulatory DMITRIY RODO Not Available Start: 03-29-2021 End: 03-29-2021 ambulatory Arminda Holt Other [facility] Other Start: 03-29-2021 Office outpatient ne w [...] 01-09-2017 Emergency department patient visit SELF SELF [facility] Procedures Date Procedure Procedure Detail Performing Clinician Start: 12-18-2023 Urnls dip stick/tabl et rgnt non-auto w/o micrscp Dmitriy Koehler DO Work Phone: Plan of Treatment Date Care Activity Detail Author Start: 01-01-2024 End: 01-01-2024 Patient encounter procedure 01/01/2024 1:00 PM EDT Routine [facility] [address] [place] [id number] Janine Guzman PA [address] [place] [address] [facility] Start: 12-18-2023 End: 12-17-2024 US biophysical profile w non stress test US biophysical profile w non stress test Imaging Routine H/O placenta previa Expected: 12/18/2023 (Approximate), Expires: 12/17/2024 [facility] Work Phone: Comment on above: Expected: 12/18/2023 (Approximate), Expires: 12/17/2024 Payers Date Payer Category Payer Unknown BCBS BCBS xxxxxx [id number] 2022-Present [phone] [address] [place] [address] [id number] 2022 Unknown [id number] 2017 Unknown [id number] 1989 Unknown [id number] 2.16.840.1.103987.3.579.2. 593 1989 Unknown [id number] 2.16.840.1.622295.3.579.2. 593 1989 Unknown [id number] 2.16.840.1.331009.3.579.2. 593 1989 Unknown [id number] 2.16.840.1.785158.3.579.2. 593 1989 Unknown [id number] 2.16.840.1.042156.3.579.2. 593 1989 Unknown [id number] 2.16.840.1.602485.3.579.2. 593 1989 Unknown [id number] 2.16.840.1.970429.3.579.2. 593 1989 Unknown [id number] 2.16.840.1.863733.3.579.2. 593 1989 Unknown [id number] 2.16.840.1.858455.3.579.2. 1286 1989 Unknown [id number] 2.16.840.1.621750.3.579.2. 1286 1989 Unknown [id number] 2.16.840.1.303914.3.579.2. 1286 1989 Unknown [id number] 2.16.840.1.367731.3.579.2. 1259 1989 Unknown [id number] 2.16.840.1.801862.3.579.2. 9 1989 Unknown [id number] 2.16.840.1.629447.3.579.2. 9 1989 Unknown [id number] 2.16.840.1.115397.3.579.2. 1258 1989 Unknown [id number] 2.16.840.1.845660.3.579.2. 1258 1989 Unknown [id number] 2.16.840.1.050688.3.579.2. 1258 1989 Unknown [id number] 2.16.840.1.696110.3.579.2. 1258 1989 Unknown [id number] 2.16.840.1.812269.3.579.2. 1286 1959 Private Health Insurance [id number] Self-pay [id number] Unknown [id number] 2.16.840.1.883123.19 Social History Date Type Detail Facility Start: 08-22-2023 Sex Assigned At [email or web address] Other Start: 08-22-2023 End: 12-18-2023 Tobacco smoking status VTIS Ex-smoker [facility] Start: 08-18-2015 End: 09-19-2014 History of tobacco use Current smoker [facility] Start: 08-18-2015 End: 09-19-2014 History of tobacco use Cigarette Smoker [facility] Start: 08-22-2023 End: 12-18-2023 Cigarettes smoked current (pack per day) - Reported 0.5 [facility] Start: 08-22-2023 End: 12-18-2023 Tobacco use and exposure Smokeless tobacco non-user [facility] Start: 12-04-2023 End: 12-18-2023 Alcoholic beverage intake Ex-drinker (finding) [facility] Start: 05-30-2023 [facility] Start: 1990 Sex assigned at Not on file [facility] Start: 07-26-2023 Gender identity Identifies as female gender (finding) [facility] Start: 07-26-2023 Sexual orientation Heterosexual (finding) [facility] History of Present illness Narrative 12-18-2023 Breanna Cisneros, ANITA - 12/18/2023 2:50 PM EDT Note Date & Type Note Facility 12-18-2023 History of Presen t illness Narrative Reason for Appointment: Patient ID: Kristin Grigsby is a 33 y.o. female who presents for Routine Visit Patient presents today for Return OB appointment. MEDICATIONS Current Outpatient Medications Medication Instructions Iron Carbonyl-Vitamin C-FOS (CHEWABLE IRON PO) Oral omeprazole (PRILOSEC) 20 mg, Oral, Daily before breakfast, Do not crush or chew. ondansetron ODT (Zofran-ODT) 4 MG disintegrating tablet DISSOLVE 1 TABLET IN MOUTH EVERY 6 HOURS NEEDED FOR NAUSEA OR FOR VOMITING MV-Min-Fe Fum-FA-DHA ( 1 PO) 1 each, Oral, Daily valACYclovir (VALTREX) 500 mg, Oral, Daily ALLERGIES No Known Allergies PROBLEMS Active Ambulatory Problems Diagnosis Date Noted No Active Ambulatory Problems Resolved Ambulatory Problems Diagnosis Date Noted No Resolved Ambulatory Problems Past Medical History: Diagnosis Date Herpes simplex 10/2020 HISTORY PAST MEDICAL HISTORY SOCIAL HISTORY Past Medical History: Diagnosis Date Herpes simplex 10/2020 Social History Tobacco Use Smoking status: Former Current packs/day: 0.50 Average packs/day: 0.5 packs/day for 17.3 years (8.7 ttl pk-yrs) Types: Cigarettes Start date: 08/18/2015 Quit date: 09/19/2014 Smokeless tobacco: Never Substance Use Topics Alcohol use: Not Currently Alcohol/week: 1.0 standard drink of alcohol Types: 1 Standard drinks or equivalent per week Drug use: Yes Frequency: 7.0 times per week Types: Marijuana FAMILY HISTORY Family History Problem Relation Name Age of Onset Asthma Mother Halina Cardenas Diabetes Father Jake Grigsby Asthma Brother Deion Grigsby SURGICAL HISTORY Past Surgical History: Procedure Laterality Date ABDOMINAL SURGERY 09/2020 SECTION, LOW TRANSVERSE 08/19/2021 DILATION AND CURETTAGE OF UTERUS 05/2020 REVIEW OF SYSTEMS Review of Systems: Review of Systems Constitutional: Negative. HENT: Negative. Eyes: Negative. Respiratory: Negative. Cardiovascular: Negative. Gastrointestinal: Negative. Genitourinary: Negative. Musculoskeletal: Negative. Skin: Negative. Neurological: Negative. All other systems reviewed and are negative. Hematological: Negative. Endocrine: Negative. Allergic/Immunologic: Negative. OBJECTIVE Objective: Physical Exam Constitutional: Appearance: Normal appearance. She is well-developed. Cardiovascular: Rate and Rhythm: Normal rate and regular rhythm. Pulmonary: Effort: Pulmonary effort is normal. Breath sounds: Normal breath sounds. Abdominal: General: Bowel sounds are normal. There is no distension. Palpations: Abdomen is soft. Tenderness: There is no abdominal tenderness. There is no guarding or rebound. Musculoskeletal: General: No swelling. Normal range of motion. Right lower leg: No edema. Left lower leg: No edema. Neurological: Mental Status: She is alert and oriented to person, place, and time. Skin: General: Skin is warm and dry. Psychiatric: Mood and Affect: Mood normal. Behavior: Behavior normal. Vitals and nursing note reviewed. Exam conducted with a shell fisherman present. Vitals: Estimated body mass index is 35.54 kg/m as calculated from the following: Height as of 02/16/21: 5' 8 . Weight as of this encounter: 233 lb 12 oz. BP: 108/68 Patient's last menstrual period was 05/22/2023. ASSESSMENT & PLAN ICD-10-CM 1. Third trimester Z34.93 POCT urinalysis dipstick manually resulted 2. 30 weeks gestation of Z3A.30 POCT urinalysis dipstick manually resulted Return OB: Patient presents today for a routine obstetrics appointment. Patient is currently 30w6d . Patient states she is doing well but has complaints of being tired due to current . Patient has verbalizes frequent movement. labor precautions was discussed/given and patient was instructed to perform kick counts three times a day. Pt to start valtrex has script at home. Orders Placed This Encounter Procedures POCT urinalysis dipstick manually resulted Follow Up: Patient is to return to office in 2 week for routine OB appointment. Documented by Breanna Cisneros LPN on behalf of: Dmitriy Koehler DO documented in this encounter [facility] Evaluation note 03-29-2021 Note Date & Type [...] Patient care instructions given in writting by [facility] document. [email or web address] Other Evaluation note Note Date & Type Note Facility Evaluation note Diagnosis Third trimester state, incidental 30 weeks gestation of H/O placenta previa documented in this encounter [facility] Summary Purpose Family History No Family History [...] and content) DATE CREATED AUTHOR 09/11/[address] [facility] DATE CREATED AUTHOR AUTHOR'S ORGANIZ ATION 10/18/2019 [facility] DATE CREATED AUTHOR AUTHOR'S ORGANIZ ATION 11/24/2020 [facility] DATE CREATED AUTHOR AUTHOR'S ORGANIZ ATION 04/08/2021 [facility] DATE CREATED AUTHOR AUTHOR'S ORGANIZ ATION 04/18/2021 [facility] DATE CREATED AUTHOR AUTHOR'S ORGANIZ ATION 06/24/2021 [facility] DATE CREATED AUTHOR AUTHOR'S ORGANIZ ATION 11/24/2023 [facility] DATE CREATED AUTHOR AUTHOR'S ORGANIZ ATION 12/20/2023 [facility] DATE CREATED AUTHOR AUTHOR'S ORGANIZ ATION 12/21/2023 [facility] REASON FOR VISIT (unrecogniz ed section and content) Reason Comments Routine Visit FOR RECORDS PERTAINING TO PATIENTS WHO ARE [...] BE BASED ON THE PRIMARY CLINICAL RECORDS. [facility]. provides no warranty or guarantee of the accuracy or completeness of information in this document.
--- NOTE | 2023-12-27 13:38 | US_ITS ---
[address] [address] Patient Name: MATTY HOLLEY MRN: [id number] date: 1990 Sex: F Assigned Patient Location: [facility] Current Patient Location: Accession/Order Number: [id number] Exam Date: 12/27/2023 13:45 Report Date: 12/28/2023 04:10 At the request of: DMITRIY BOWIE Procedure: US OB BPP w non-stress EXAMINATION: US OB BPP w non-stress HISTORY:History of placenta previa COMPARISON: Ultrasound OB transvaginal 07/26/2023 TECHNIQUE: Ultrasound biophysical profile was performed in the radiology department. BREATHING MOVEMENTS: 2 GROSS BODY MOVEMENTS: 2 TONE: 2 QUALITATIVE AMNIOTIC FLUID VOLUME: 2 PRESENTATION: CEPHALIC HEART RATE: 137.06 bpm AMNIOTIC FLUID VOLUME: 14.85 cm GESTATIONAL AGE: 32 weeks 1 day US/US OB BPP w non-stress IMPRESSION: Total biophysical profile score: 8 Electronically authenticated by: DANG MENDOZA Date: 12/28/2023 04:10
[2023-12-27 14:12] VITALS: BP 125/70; PULSE 84
== END 2023-12-27 15:00 | disposition home or self-care (01) ==
LOC: US 06:57 → FBC 13:11
PROVIDERS: Visit Provider Obstetrics & Gynecology
DX: Z87.59 Personal history of other complications of pregnancy, childbirth and the puerperium (principal); Z3A.32 32 weeks gestation of pregnancy
CPT/HCPCS: 76818

== ENCOUNTER 2023-12-31 07:07 | Outpatient (OUT) | payer BC, SELFPAY ==
--- OUTSIDE RECORDS SUMMARY | 2023-12-31 07:09 | XMS_ITS | CCD ---
Author Organization [facility] Care Team Providers Care Obgyn Specialist Name Role Phone SELF, SELF Unavailable Unavailable MIGUEL GAMBOA Unavailable Unavailable EZEQUIEL, DR CUEVA Consulting Unavailable EZEQUIEL, DR CUEVA Admitting Unavailable EZEQUIEL, DR CUEVA Attending Unavailable REQUEST, NONE LISTED Primary Care Unavaila Edmundo Archer Consulting Unavailable JUNIOR, HERBERT Consulting Unavailable JUNIOR, HERBERT Admitting Unavailable REQUEST, NONE LISTED Primary Care Unavaila dennis PACHECO, HERBERT Attending Unavailable JUNIOR, HREBERT Consulting Unavailable JUNIOR, HERBERT Admitting Unavailable REQUEST, [...] Drug Class(es) Dates Sig (Normalized) Sig (Original) [id number] 200 actuat albuterol 0.09 mg/actuat metered dose [...] 03-29-2021 Episodic Other aftercare (1 source) Other group home (current) drug therapy; Translations: [OTH [facility] CURRENT DRUG THERAPY] Onset: 08-19-2020 Episodic Residual [...] UA Negative Negative - 4(70) +++ mg/dL [facility] Blood, UA Negative Negative - 50 Wili/mcL [facility] Clarity, UA Clear [facility] Color, UA Yellow [facility] Glucose, UA Negative Negative - 2000(110) ++++ mg/dL [facility] Interpretation and review of laboratory results Abnormal [facility] Ketones, UA Negative Negative - 160(16) ++++ mg/dL [facility] Leukocytes, UA Negative Negative - 500+++ Yajaira/mcL [facility] Nitrite, UA Negative Negative - Positive [facility] pH, UA 6.5 5 - 9 [facility] Protein, UA Trace Negative - 2000(20) ++++ mg/dL [facility] Spec Grav, UA 1.030 1 - 1.03 [facility] Urobilinogen, UA 0.2 0.2 - 12 mg/dL [facility] Complete Blood Count Auto Di ffon 06-14-2021 Basophils (Bld) [#/Vol] 0.0 10*3/uL Normal 0.0-0.2 [facility] Comment on above: Result Comment: PERF ORMED BY: [place] [address] PATHOLOGIST PRIVATE TUTOR STEPHANIE ROACH M.D. Performed By: #### C BC #### [address] Basophils/100 WBC (Bld) 0.6 % Normal . [facility] Comment on above: Performed By: #### C BC #### [address] Eosinophils (Bld) [#/Vol] 0.1 10*3/uL Normal 0.0-0.45 [facility] Comment on above: Performed By: #### C BC #### [address] Eosinophils/100 WBC (Bld) 1.7 % Normal . [facility] Comment on above: Performed By: #### C BC #### [address] Erythrocyte distribution width (RBC) [Ratio] 13.5 % Normal 11.9-15.3 [facility] Comment on above: Performed By: #### C BC #### [address] Hematocrit (Bld) [Volume fraction] 30.6 % Low 34.0-46.4 [facility] Comment on above: Performed By: #### C BC #### [address] Hemoglobin (Bld) [Mass/Vol] 10.2 g/dL Low 11.8-15.4 [facility] Comment on above: Performed By: #### C BC #### [address] Lymphocytes (Bld) [#/Vol] 2.1 10*3/uL Normal 1.00-4.8 [facility] Comment on above: Performed By: #### C BC #### [address] Lymphocytes/100 WBC (Bld) 24.1 % Normal . [facility] Comment on above: Performed By: #### C BC #### [address] MCH (RBC) [Entitic mass] 31.4 pg Normal 24.7-34.3 [facility] Comment on above: Performed By: #### C BC #### [address] MCV (RBC) [Entitic vol] 94.0 fL Normal 80-100 [facility] Comment on above: Performed By: #### C BC #### [address] Mean Corpuscular HGB Conc 33.4 g/dL Normal 32.0-35.0 [facility] Comment on above: Performed By: #### C BC #### [address] Monocytes (Bld) [#/Vol] 0.4 10*3/uL Normal 0.0-0.8 [facility] Comment on above: Performed By: #### C BC #### [address] Monocytes/100 WBC (Bld) 4.9 % Normal . [facility] Comment on above: Performed By: #### C BC #### [facility] [address] [place] [address] [place] Neutrophils (Bld) [#/Vol] 5.9 10*3/uL Normal 1.8-7.7 [facility] Comment on above: Performed By: #### C BC #### [facility] [address] [place] [id number] [facility] Neutrophils/100 WBC (Bld) 68.7 % Normal . [facility] Comment on above: Performed By: #### C BC #### [facility] [address] [place] [address] [place] Nucleated RBC/100 WBC (Bld) [Ratio] 0.1 % Normal 0-0.5 [facility] Comment on above: Performed By: #### C BC #### [facility] [address] Platelet mean volume (Bld) [Entitic vol] 8.0 fL Normal 6.3-10.7 [facility] Comment on above: Performed By: #### C BC #### [facility] [address] [place] [address] [place] Platelets (Bld) [#/Vol] 298 10*3/uL Normal 150-450 [facility] Comment on above: Performed By: #### C BC #### [facility] [address] [place] [address] [place] RBC (Bld) [#/Vol] 3.25 10*6/uL Low 3.60-5.00 [facility] Comment on above: Performed By: #### C BC #### [facility] [address] [place] [address] [place] WBC (Bld) [#/Vol] 8.6 10*3/uL Normal 4.5-11.0 [facility] Comment on above: Performed By: #### C BC #### [facility] [address] [place] [address] [place] Dipstick and Microscopicon 0 06-14-2021 Appearance (U) Clear Normal Clear [facility] Comment on above: Order Comment: Name Collection Type:: Clean-Voided Midstream Performed By: #### A DDONUAPLUS, OBUDS #### [facility] [address] [place] [address] [place] Bacteria,Urine None Seen Normal None Seen [facility] Comment on above: Order Comment: Name Collection Type:: Clean-Voided Midstream Performed By: #### A DDONUAPLUS, OBUDS #### [place] [address] [place] Bilirubin,Urine Negative Normal Negative [facility] Comment on above: Order Comment: Name Collection Type:: Clean-Voided Midstream Performed By: #### A DDONUAPLUS, OBUDS #### [address] Color (U) Yellow Normal Yellow [facility] Comment on above: Order Comment: Name Collection Type:: Clean-Voided Midstream Performed By: #### A DDONUAPLUS, OBUDS #### [place] [address] [place] Glucose Ql (U) Normal Normal Normal [facility] Comment on above: Order Comment: Name Collection Type:: Clean-Voided Midstream Performed By: #### A DDONUAPLUS, OBUDS #### [place] [address] [place] Hyaline Casts,Urine 0-8 Normal 0-8 [facility] Comment on above: Order Comment: Name Collection Type:: Clean-Voided Midstream Result Comment: PERF ORMED BY: [place] [address] PATHOLOGIST PRIVATE TUTOR STEPHANIE ROACH M.D. Performed By: #### A DDONUAPLUS, OBUDS #### [place] [address] [place] Ketones Ql (U) Negative Normal Negative [facility] Comment on above: Order Comment: Name Collection Type:: Clean-Voided Midstream Performed By: #### A DDONUAPLUS, OBUDS #### [place] [address] [place] Leukocyte esterase Test strip Ql (U) Negative Normal Negative [facility] Comment on above: Order Comment: Name Collection Type:: Clean-Voided Midstream Performed By: #### A HARJIT OBUDS #### [place] [address] [place] Nitrite,Urine Negative Normal Negative [facility] Comment on above: Order Comment: Name Collection Type:: Clean-Voided Midstream Performed By: #### A DDSHENA OBUDS #### [address] Occult Blood,Urine 3+ High Negative [facility] Comment on above: Order Comment: Name Collection Type:: Clean-Voided Midstream Result Comment: PERF ORMED BY: [place] [address] PATHOLOGIST PRIVATE TUTOR STEPHANIE ROACH M.D. Performed By: #### A HARJIT OBUDS #### [address] pH (U) 7.5 [pH] Normal 5.0-9.0 [facility] Comment on above: Order Comment: Name Collection Type:: Clean-Voided Midstream Performed By: #### A DDSHENA OBUDS #### [address] Protein,Urine Negative Normal Negative [facility] Comment on above: Order Comment: Name Collection Type:: Clean-Voided Midstream Performed By: #### A DDSHENA OBUDS #### [place] [address] [place] RBC,Urine 20-49 High 0-4 [facility] Comment on above: Order Comment: Name Collection Type:: Clean-Voided Midstream Performed By: #### A MARIBETHUAJOHANNA OBUDS #### [address] Specificy [place],Urine 1.009 Normal 1.001-1.030 [facility] Comment on above: Order Comment: Name Collection Type:: Clean-Voided Midstream Performed By: #### A DDONUAPLUS, OBUDS #### [facility] [address] Squamous Epithelial Cell,Urine 1-2 Normal 0-2 [facility] Comment on above: Order Comment: Name Collection Type:: Clean-Voided Midstream Performed By: #### A DDONUAPLUS, OBUDS #### [place] [address] [place] Urobilinogen,Urine Normal Normal Normal [facility] Comment on above: Order Comment: Name Collection Type:: Clean-Voided Midstream Performed By: #### A DDONUAPLUS, OBUDS #### [address] WBC,Urine None Seen Normal 0-4 [facility] Comment on above: Order Comment: Name Collection Type:: Clean-Voided Midstream Performed By: #### A DDONUAPLUS, OBUDS #### [address] OB Urine Drug Screen (NO THC )on 06-14-2021 Amphetamine Screen,Urine Negative Normal Negative [facility] Comment on above: Performed By: #### A DDONUAPLUS, OBUDS #### [address] Barbiturate Screen,Urine Negative Normal Negative [facility] Comment on above: Performed By: #### A DDONUAPLUS, OBUDS #### [place] [address] [place] Benzodiazepines Screen,Urine Negative Normal Negative [facility] Comment on above: Performed By: #### A DDONUAPLUS, OBUDS #### [facility] [address] [place] [address] [place] Cocaine Screen,Urine Negative Normal Negative [facility] Comment on above: Performed By: #### A DDONUAPLUS, OBUDS #### [address] Opiate Screen,Urine Negative Normal Negative [facility] Comment on above: Performed By: #### A DDONUAPLUS, OBUDS #### [facility] [address] Phencyclidine Screen, Urine Negative Normal Negative [facility] Comment on above: Result Comment: Thes e are unconfirmed results and should not be used for legal purposes. Drug Cut-Off Concentration: AMPH 1000 ng/mL NOLBERTO 200 ng/mL BIANCA 200 ng/mL COCM 300 ng/mL OP 300 ng/mL PCP 25 ng/mL PERFORMED BY: [facility] [address] [place] [address] PATHOLOGIST PRIVATE TUTOR STEPHANIE ROACH M.D. Performed By: #### A DDONUAPLUS, OBUDS #### [facility] [address] US OB 2nd/3rd Trimesteron OB 2nd/3rd [...] 4.6 cm (19 weeks, 6 days) Head Dbdptsmkwfudw33.3 cm (19 weeks, 0 days) Abdominal Ksbwbpyyuxwuv44.6 cm (19 weeks, 0 days) Femur Length 3.1 cm (19 weeks, 3 days) PresentationBreech Weight (g) by Jvsutnohxd26.4%* These measurements result in an estimated date [...] by Ayo Jiménez on 04/18/2021 0921 Normal [facility] Specialist Coding Summaryon 04-07-2021 Coding Summary HTMLBase 64 LvhauzmhRSx5cPj+PG hlYWQ+OQ4CKPPxZ76m sSHemE4EF6jCAG8DNF MDRCOIGK8UZH2iyNL4 TWygT6ChauIt VwdtpMTtLM84ZSg4MJ T4dOhlNIkmvY4xsKWx A6k9DcXjMK57rZ72XF pqAGAwWyB2QjJdmell bWFy X4vbNkTvxZLbSbr+PH RhYmxlIHdpZHRoPScx XYHoVoCteLydPU9wXe 9yZGVyLWNvbGxhcHNl OiBj o3emWPJsGHpnGX9uzO uvL6RzgIL2JTTje8u7 Ox10eYX+FKBaZEJ4vV jnPLoyx666UiYsd2kg IDM3 zOQhDHggRVU8Z18db2 Y3YCJaAJTnRZZ4fBK0 qW6hzJtcqzesC8DvbV EkLbK7QNV6cHLwqU5u bGln aeirwY4wTzv+Q09ESU 2ZYWWVVN3GIge5Z9Vp PjwvdHI+CR95KFFlII 76aWQoeLTpv0sbyBm6 JzEw CKBzEFL8bAvtQEuow0 ScEJSnQ98pvCHcd8B5 IGNvbGxhcHNlOyBlbX P4yZ9tVBcnkfcfi4pq dzsn Nhpeh2uwwq12uH35V7 4aVKnyTXBeIKV8DPCf RABytYkots0zdU6hTp 8+UVznq0uvs6bwdYj6 IjIw ZKBpmpIldEpfILD8m2 AnNo52V0AkhVgwy3Ru Mtg6ui86zOPat2H9kL J0QMscCBFxoQ0bRBbb ZnQ6 JQEtKhBxjL64nTAbTB xmYj5sgNlpiWnmFK5t REXgnbouDMBkiA1bKG AleVWonTkeYD8lBAZq bjtm o659HjSkJBA5PETuoR TiM5NcuR9wOoRuTMOa VYCzS7NbzFFaWVzhR5 74BCtkEwV1XIElxmPg Y2Fs WEGznHzvFwZ5h9T4Qx 7Zb4HvhtjoQVS3FUtw YVVoXnCfHnSqIjY0F7 HzPzj2RASmuEupLW4n J3Bh ICPshwjonrcaqNW7RC PfCEKlmY64aRFmHRya Hd8py7T5h836ZPKuMB JcfT17Ev9jbVtuIPXl dCBU lI0iprana3wxstcpDl EbQDJdPWr7LDb8RZTv eCsoUcTaWWG5JdQ1GU L6oNAvaN9bgXjmdxjl dG9w Oyc+U83nvV0sILA6JX W9kdngXCWlgwSwTU28 UG56F6AnUasqxNAtwY U+NKJkerWfoHpyRX7a YmFj h9asq1YhARnsY6BpEB ZpPFhuUzn5YIUrNNL8 mWH4uW4pLVOaWTtph7 V6pZI9B0EreaUvgk2t b2xs SJTrXPzdD53ndFVka8 A9WNYihII1AGYhtPlx RcIikW97Ydu+PGNvbG bun3IgXjoax6aml0dr dGg9 IjMwJSIgdmFsaWduPS A0s9AuCo42Q61qFHal ZHRoPSIxNSUiIHZhbG yzwn6brA3jIi2+PGNv bCB3 pBW4iU4dGQWdLdC8OG eoF065NrUiaJTwJsli n7pwa7teoUk4BaHnNA IdrlRvyPnaLYL9f5Un Lz48 F80lRIysWYJgDSHoTN FuOTReuCyruv8wwH2d Ii8+YE6vk2rpac35xT 48dHI+XUXnJME1uVaj PSdw KXXoeG2kKIelEcF9QQ EzJhGrpH00oDYuVZpq Bg8slIpyxGgvPR0kEQ Vmmybar641QsWjp3tb IDEw fKFvNMswVEU7N82eu0 W7NNXxUJFpYEW2oPR5 lT6cvPjkiastqYXfvH sgdmVydGljYWwtYWxp Z246 IHRvcDsnPlBhdGllbn UbNjFyCKf4A3AbRik2 IIMfvIioYU4dzJHpQA fqRs3dmCdagMtnDG1u NTBp mrfkb095AvIgx0rdLM MjiPSyMAccRLB8G67i p3K4KJAmCTSkGSM2wU N6rZ1frNgkkmfxwZVg dDsg dmVydGljYWwtYWxpZ2 46IHRvcDsnPkJpcnRo XUFioYW2HR25OU32sB Xoi9M2kYM4Y3WnCRYf bmct mhfpyGB1UGGrSCCbdT 44Pq3gdRzyEt4gIPFx EHA4ZJDzzDLlQ8PuvG 8mFyJaKVDjHXMcU7Ie eHQt AGjtW252VOnbHtX4SQ KckxOqK4EjJXIqaQjz McC0t3G3Pu3EO0B8QZ 57EA85fIVio9J2iKV6 J3Bh QRHboftbybhlsQA3QI XwGXRfrQ99Gi1zkHnk Hq7fMVBxLFS9EHHisB JmG6NsnV5dDjWkCNNz MDAw E0UhdKWtMHsbO886TI vnKiE5OQSbulDeR1Lt IMFhqGzlCqR6f8I3Vf 2RKBe1ZJ65PC11bRUx c3R5 uAR9O7EcLGYqckyfrx pfnCC9WJDjBBCocV65 Tj5msRodSa7kMJNlJA B9NBGmqLCkI1OqlB2w OiAj AHPsFLAjN1DglMPcGK juZ524CXnjRmH1RZAt vbXpP5TwRFAqhMhbEp X9f7Y3Kb7NWAGtMR99 IFR5 gUQ5AG47AU68P3FeGm wvdGFibGU+PHRhYmxl IHdpZHRoPScxMDAlJy TlcVkxRZ3cWt5uXAFr LWNv iNpjnNJiUfYmc9fyYW NnFNsdCJ0ruHlbD7Bq vOI9DXYbn0x4Fn13E4 3uF9TyaBW+PGNvbCB3 aWR0 uG2mEgAgSkG7UVuaK6 14UsUwpOXoKifml1eg f0tdpTz3HkK2CCMfiz ThpKxtQAO6t1IyAe45 Y29s IHdpZHRoPSIxNSUiIH LmrDbkiy1euO1wTc4+ QDSzeQT8vAV2sN5aNq KxYdG6WNspT437AjHv cCIv Zvxnm1fug6iftXz4Sl IwJSIgdmFsaWduPSJ0 i9PhKl23D3OwzHvkz2 XvUiv1vx48nGUpe5F8 bGU9 H2RpNAClmvziiWHokT olMN6iGWSvhgycCEGb gB9nJMFbL2m2VwMhAj C8XCdnY3HgurO9TBZl cHQg EYetPDK4J94gg5O1MQ FsFDKjAOK5nMI4hU2y bGlnbjogbGVmdDsgdm UyrKplGNplMPvbR884 IHRv fOvaMRWifZ0rUQPkkM QuhXnrJG7xNFTarofg KzXXQoWUSscyQG6YIE XTBLC0Z2MdHlv8LVKs dHls IW0jtNJgJOynKq0vvV mthCdrJZ5eAXPlyaqn KWCsmJ7nXORbqTXrcY vfJE0fBBSqrydmt030 OiAx IGL7HJAluCWoR4FsoT 3pKjLvJPHiBMQgL0Lp aXPyJWyeO671AXfaMy M4JJEowhWyY2AbNHOs aWdu IzX2r7Z5Po3zEn9rKf 6kSItuCD55BA18iCLu t0P8mBK6M9QgSKOctk lleqynuSX3MAOnQFVl aW47 lMAtRBfpWc3bk0N6b7 13DNOiKBBrbG78Et3x qVpmJIOqfIXKqE8qdf wxp7kuqkpwJwWxJPAd MDt0 CQc1KDEdhKasOsEwYD R5OiI2MFH6dBXcaH7t pRhthprxjI1jRjr+Mz UbCIQgzfA6L2BsUza8 ZCBz sUtpIL9naCBiYOdbDa 5mlSyvuChaNW3tAVYa mcflXQHqvZ2fQSUcdU MrsOgoPU0iPTArwmrk b250 YpDtBFZ4KLXnwSLqM6 ZuoA3mOeCmBLAgVQRn L3WveUKgOMeqQ333XJ yhIuG2XFCgmoVwK5Qa LWFs pEzcDoP7i1J9Zl6VVV 7FELW1X9FmNje5BWLu yMnhDY5lyXJnLChwYf 9hoRcopZwmCH3mBUXb bjtw AWOzhA9yCGTdwQKefF qfTF7uFVJthwnlr890 OoKbRGM4NBArfTOzS7 XfhG6bYaMfHDYyENTg O3Rl eOGnBSncW519VTbbLz A0VCKnixSyY4WrKUYu xVvcTpX4u1S4Pt1CDF wvdGQ+KO16xf62J0Zh Ymxl Arz3KPPoZGN0gZV0zG 3mNLGxCMgjq0F2lUI6 Z2NojdCgiv6fu9drHH WqHSlsG93jqKNfq9X0 IGVt oVN8UMIycTsyEcHyeN 93Oyc+JQKmfLmdi5Wa Vzyqp5kdk6cceSg2Hg MwJSIgdmFsaWduPSJ0 b3Ai Ib14O36gUAhoXREeEU HlMPYxMEHjoPmfwq3v dE1oYo5+QPDawNE8bZ Y2wB2cTnSyEpZ5CYzk Z249 FzVqjZHuBkjvy6wfo1 cxsIz7BeLhYLDzakVe mWetYIL5f0GcRk35G7 PlpLuup9InMze2rp62 dGQg p4Z2nWB8S5GbWDRomz ifbAZpzPfgHN3lYPSc dziuRPThaW6qUWYrP5 u0JrNkIgY0SQzsY8Sm bnQ6 IGJvbGQgMTBwdCBUaW 8nxeiea8ynczgyGvSz CDYeHVc3EZu2QISftD tkLrZaBHM5VeK6BAK4 aWNh kF6pcOadchtrhF6jGd c+FJa2s9qguJPqYD1g bHD6WO12DN98bGCus6 Q8jCR0B7GuUYWdkuim cmln jDL9MMDjZDYwgR54Hz 3mcJeiTl8wVIGyKAZ1 KSCwkLUhH2GvcG0fNm XlAUUyTSXaF3CqbSSd YWxp O176YFezCcQ6AWZozt KlA1AuFQQlqMaiKaS8 h7U5Qg5UMW49JZ78TL 77rXIzc5A5yLS6K0Vz ZGRp cmkeclzyyBP8AFUcIC SzyK61Vw8gtBkqTc9u CXTrAVZ8JPEvhKGaH8 OqtC9zOpOaIQXaOHDz O3Rl yQEiPPhiB722YMuuJg A0VVSjnaSpB5CfVVNa bMknCzR3b6Y7Ne7EKa 91QU83UN53nHIjj2A9 bGU9 R1BfQGAvpamgzlaxhB N5ZDBgBQLeuC38Hs4f wWxtFo9aDHZmEAW0KP RcbGLbD0InvP1tEzOw MDAw ZLFiS2LhlSDtOXigB4 04JOirXvO2GKVlaeXk E0NaOGUaaLflXxB7r0 J4Qs3ZYBawzrg5M4Ys Pjwv dHI+XA63XVRnXD53sX XtlWAbd9zaoJc4QcNq KTClSCU2mDtiEHswc4 QnZIEzB33uuRKae4Q4 IGNv bGx (more content not included)... [facility] Consent Formson 04-01-2021 Consent Forms [id number]-01-2021 Provider Orders [id number] Quick Testingon 2021 Result Positive [employer] Other HERPES SIMPLEX VIRUS 1/2 DNA PCRon 11-11-2020 HSV-1 DNA Negative Normal Negative [facility] Comment on above: Performed By: #### C BC #### [facility] [address] [place] [address] Sunshinevinita Gonzalezen HSV-2 DNA Positive Abnormal Negative [facility] Comment on above: Result Comment: This test was developed and its performance characteristics determined by [facility]. It has not been cleared or approved by the [place]. Food and Drug Administration. The FDA has determined that such clearance or approval is not necessary. This test is used for clinical purposes. It should not be regarded as investigational or research. Performed By: #### C BC #### [facility] [address] [place], [place] [id number] Sunshine Carlos CULTURE URINEon 11-10-2020 CULTURE URINE [...] F Tetracycline <=0.25 S F Normal [facility] Comment on above: Performed By: #### C BC #### [facility] [address] [place] [address] Sunshine Carlos CHLAMYDIA/GONOCOCCUS TINA (SW AB/URINE/PAPon 11-09-2020 Chlamydia trachomatis, TINA Negative Normal Negative [facility] Comment on above: Performed By: #### C T/NGNA #### [facility] [address] [place] [address] Sunshine Carlos Neisseria gonorrhoeae, TINA Negative Normal Negative [facility] Comment on above: Performed By: #### C T/NGNA #### [facility] [address] [place] [address] Sunshine Carlos Covid-19 PCR ([facility])on 10-18 SARS-CoV-2 (COVID-19) RNA TINA+probe Ql (Unsp spec) Not detected Normal NOT DETECTED [facility] Comment on above: Result Comment: This test is not yet approved or cleared by the [place] FDA. When there are no FDA-approved or cleared tests available, and other criteria are met, FDA can make tests available under an emergency access mechanism called an Emergency Use Authorization (EUA). The EUA for this test is supported by the Clarifier of Health and Human Service's (HHS's) declaration [...] Performed By: #### C VDAGS, CVDTBH #### [facility] [address] [place] [address] Sunshine Carlos ER URINE PROFILEon Bilirubin Ql (U) Negative Normal NEGATIVE [facility] Comment on above: Performed By: #### C BC #### [facility] [address] [address] Sunshine Breanna Clarity (U) CLEAR Normal CLEAR [facility] Comment on above: Performed By: #### C BC #### [facility] [address] [place] [address] Sunshine Breanna Color (U) LT. YELLOW Normal YELLOW [facility] Comment on above: Performed By: #### C BC #### [facility] [address] [place] [address] Sunshine Breanna ERUAHD A micrscopic examination will be performed if indicated. Normal [facility] Comment on above: Performed By: #### C BC #### [facility] [address] [place] [address] Sunshine Breanna Glucose Ql (U) Negative Normal NEGATIVE [facility] Comment on above: Performed By: #### C BC #### [facility] [address] [place] [address] Sunshine Breanna Hemoglobin Ql (U) LARGE Abnormal NEGATIVE [facility] Comment on above: Performed By: #### C BC #### [facility] [address] [place] [address] Sunshine Breanna Ketones Ql (U) Negative Normal NEGATIVE [facility] Comment on above: Performed By: #### C BC #### [facility] [address] [place] [address] Sunshine Breanna LEUKOCYTES Negative Normal NEGATIVE [facility] Comment on above: Performed By: #### C BC #### [facility] [address] [place] [address] Sunshine Breanna Nitrite Ql (U) Negative Normal NEGATIVE [facility] Comment on above: Performed By: #### C BC #### [facility] [address] [place] [address] Sunshine Breanna pH (U) 5.5 [pH] Normal 5-[address] [facility] Comment on above: Performed By: #### C BC #### [facility] [address] [place] [address] Sunshine Breanna SPEC GRAVITY >=1.030 Abnormal 1.005-<=1.[address] [facility] Comment on above: Performed By: #### C BC #### [facility] [address] [place] [address] Sunshine Carlos UA PROTEIN Negative Normal NEGATIVE/ TRACE [facility] Comment on above: Performed By: #### C BC #### [facility] [address] [place] [address] Sunshine Carlos UR MICRO IND INDICATED Normal [facility] Comment on above: Performed By: #### C BC #### [facility] [address] [place] [address] Sunshine Carlos Urobilinogen Qn (U) 0.2 {Braden'U}/dL Normal 0.2 - 1. [address] [facility] Comment on above: Performed By: #### C BC #### [facility] [address] [place] [address] Sunshine Carlos URon 11-08-2020 , QUAL Negative Normal NEGATIVE [facility] Comment on above: Performed By: #### C BC #### [facility] [address] [place], [place] [id number] Sunshine Carlos STREPT SCREENon 11-08-2020 STREP SCREEN A Positive Abnormal NEGATIVE [facility] Comment on above: Performed By: #### C BC #### [facility] [address] [place] [address] Sunshine Carlos SYMPTOMATIC COVID-19 ANTIGEN on 11-08-2020 EUA Statement SEE BELOW Normal The [facility] Comment on above: Result Comment: This [...] Performed By: #### C IVELISSE CVDTB #### [facility] [address] [place] [address] Sunshinevinita Carlos SARS-CoV-2 (COVID-19) RNA TINA+probe Ql (Unsp spec) Negative Normal NEGATIVE [facility] Comment on above: Result Comment: CONF IRMATION BY PCR PENDING PER CDC GUIDELINES/ SYMPTOMATIC PATIENT. Performed By: #### C IVELISSE CVDTB #### [facility] [address] [place] [address] Sunshine Breanna URINE MICROSCOPIC ONLYon AMORPHOUS CRYSTALS FEW Normal [facility] Comment on above: Performed By: #### C BC #### [facility] [address] [place] [address] Sunshine Breanna BACTERIA SMALL Abnormal NONE SEEN [facility] Comment on above: Performed By: #### C BC #### [facility] [address] [place] [address] Sunshine Breanna Bacteria identified Cx Nom (U) INDICATED Normal [facility] Comment on above: Performed By: #### C BC #### [facility] [address] [place] [address] Sunshine Breanna CAST NONE SEEN Normal NONE SEEN [facility] Comment on above: Performed By: #### C BC #### [facility] [address] [place] [address] Sunshine Breanna Crystals LM Nom (Urine sed) SEEN Abnormal NONE SEEN [facility] Comment on above: Performed By: #### C BC #### [facility] [address] [place], [place] [id number] Sunshine Breanna Epithelial cells LM Ql (Urine sed) MODERATE Abnormal NONE SEEN /RARE [facility] Comment on above: Performed By: #### C BC #### [facility] [address] [place] [address] Sunshine Breanna MUCOUS MODERATE Abnormal NONE SEEN [facility] Comment on above: Performed By: #### C BC #### [facility] [address] [address] Sunshine Carlos RBC 2-5 Abnormal 0-[address] [facility] Comment on above: Performed By: #### C BC #### [facility] [address] [place] [address] Sunshine Carlos WBC 5-10 Abnormal NONE SEEN [facility] Comment on above: Performed By: #### C BC #### [facility] [address] [place], [place] [id number] Sunshine Carlos US SINGLE QUAD RT UPPERon [...] EDMUNDO GUZMAN Date: 2020-08-19 15:[address] [facility] AMYLASEon 08-17-2020 Amylase [Catalytic activity/Vol] 49 U/L Normal 31-[address] [facility] Comment on above: Performed By: #### C BC #### [facility] [address] [place] [address] Sunshine Carlos CBC AUTO DIFFon 08-17-2020 BASO # 0.0 103/ul Normal 0.0-0.[address] [facility] Comment on above: Performed By: #### C BC #### [facility] [address] [id number] Sunshine Breanna Basophils/100 WBC (Bld) 0.6 % Normal 0.2-2.0 [facility] Comment on above: Performed By: #### C BC #### [facility] [address] [place], [place] [id number] Sunshine Breanna EO # 0.1 103/ul Normal 0.0-0.7 [facility] Comment on above: Performed By: #### C BC #### [facility] [address] [place], [place] [id number] Sunshine Breanna Eosinophils/100 WBC (Bld) 1.3 % Normal 0.9-7.0 [facility] Comment on above: Performed By: #### C BC #### [facility] [address] [place] [address] Sunshine Breanna Erythrocyte distribution width (RBC) [Ratio] 13.0 % Normal 11.0-15.0 [facility] Comment on above: Performed By: #### C BC #### [facility] [address] [place], [place] [id number] Sunshine Breanna Hematocrit (Bld) [Volume fraction] 39.1 % Normal 36.0-48.0 [facility] Comment on above: Performed By: #### C BC #### [facility] [address] [place], [place] [id number] Sunshine Breanna Hemoglobin (Bld) [Mass/Vol] 13.2 g/dL Normal 12.0-16.0 [facility] Comment on above: Performed By: #### C BC #### [facility] [address] [place] [address] Sunshine Breanna IG # 0.01 10e3/ul Normal 0.00-0.03 [facility] Comment on above: Performed By: #### C BC #### [facility] [address] [place] [address] Sunshine Breanna IG % 0.1 % Normal 0.0-0.5 [facility] Comment on above: Performed By: #### C BC #### [facility] [address] [place] [address] Sunshine Breanna LYMPH # 2.4 103/ul Normal 1.2-3.8 [facility] Comment on above: Performed By: #### C BC #### [facility] [address] [place], [place] [id number] Sunshine Breanna Lymphocytes/100 WBC (Bld) 33.5 % Normal 20.5-60.0 [facility] Comment on above: Performed By: #### C BC #### [facility] [address] [place] [address] Sunshine Carlos MANUAL DIFF REQ NO Normal [facility] Comment on above: Performed By: #### C BC #### [facility] [address] [place] [address] Sunshinevinita Carlos MCH (RBC) [Entitic mass] 30.6 pg Normal 26.7-34.0 [facility] Comment on above: Performed By: #### C BC #### [facility] [address] [place] [address] Sunshinevinita Carlos MCHC (RBC) [Mass/Vol] 33.8 g/dL Normal 29.9-35.2 [facility] Comment on above: Performed By: #### C BC #### [facility] [address] [place] [address] Sunshinevinita Carlos MCV (RBC) [Entitic vol] 90.7 fL Normal 81.0-99.0 [facility] Comment on above: Performed By: #### C BC #### [facility] [address] [place] [address] Sunshine Breanna MONO # 0.3 103/ul Normal 0.3-0.8 [facility] Comment on above: Performed By: #### C BC #### [facility] [address] [place] [address] Sunshine Breanna Monocytes/100 WBC (Bld) 4.1 % Normal 1.7-12.0 [facility] Comment on above: Performed By: #### C BC #### [facility] [address] [place] [address] Sunshine Breanna NEUT # 4.2 103/ul Normal 1.4-6.5 [facility] Comment on above: Performed By: #### C BC #### [facility] [address] [place] [address] Sunshine Carlos Neutrophils/100 WBC (Bld) 60.4 % Normal 43.0-75.0 [facility] Comment on above: Performed By: #### C BC #### [facility] [address] [place] [address] Sunshine Carlos Platelet mean volume (Bld) [Entitic vol] 10.7 fL Normal 9.5-13.5 [facility] Comment on above: Performed By: #### C BC #### [facility] [address] [place] [address] Sunshine Carlos PLT 321 103/ul Normal 150-[address] [facility] Comment on above: Performed By: #### C BC #### [facility] [address] [place] [address] Sunshine Carlos RBC 4.31 106/ul Normal 4.20-5.40 [facility] Comment on above: Performed By: #### C BC #### [facility] [address] [place] [address] Sunshine Carlos WBC 7.0 103/ul Normal 4.0-11.0 [facility] Comment on above: Performed By: #### C BC #### [facility] [address] [place] [address] Sunshine Carlos LIPASEon 08-17-2020 Lipase [Catalytic activity/Vol] 97.0 U/L Normal 23.0-300.0 [facility] Comment on above: Performed By: #### T CANDE, CMP, LIPA, JANINE #### [facility] [address] [place] [address] Sunshine Carlos PROF 14(COMP METB)on 021 Albumin [Mass/Vol] 3.5 g/dL Normal 3.5-5.0 [facility] Comment on above: Performed By: #### T CANDE, CMP, LIPA, JANINE #### [facility] [address] [place] [address] Sunshine Breanna Albumin/Globulin [Mass ratio] 0.8 {ratio} Normal [facility] Comment on above: Performed By: #### T CANDE, CMP, LIPA, JANINE #### [facility] [address] [address] Sunshine Breanna ALP [Catalytic activity/Vol] 64 U/L Normal 38-126 [facility] Comment on above: Performed By: #### T CANDE, CMP, LIPA, JANINE #### [facility] [address] [place] [address] Sunshine Breanna ALT [Catalytic activity/Vol] 12 U/L Normal 9-52 [facility] Comment on above: Performed By: #### T CANDE, CMP, LIPA, JANINE #### [facility] [address] [place] [address] Sunshine Breanna Anion gap [Moles/Vol] 14.9 mmol/L Normal [facility] Comment on above: Performed By: #### T CANDE, CMP, LIPA, JANINE #### [facility] [address] [place] [address] Sunshine Breanna AST [Catalytic activity/Vol] 9 U/L Critically low 14-36 [facility] Comment on above: Performed By: #### T CANDE, CMP, LIPA, JANINE #### [facility] [address] [place] [address] Sunshine Breanna Bilirubin [Mass/Vol] 0.2 mg/dL Normal 0.2-1.3 [facility] Comment on above: Performed By: #### T CANDE, CMP, LIPA, JANINE #### [facility] [address] [place] [address] Sunshine Breanna Calcium [Mass/Vol] 8.9 mg/dL Normal 8.4-10.2 [facility] Comment on above: Performed By: #### T CANDE, CMP, LIPA, JANINE #### [facility] [address] [address] Sunshine Breanna Chloride [Moles/Vol] 108 mmol/L Critically high 98-107 [facility] Comment on above: Performed By: #### T CANDE, CMP, LIPA, JANINE #### [facility] [address] [address] Sunshine Breanna CO2 [Moles/Vol] 23.8 mmol/L Normal 22.0-30.0 [facility] Comment on above: Performed By: #### T CANDE, CMP, LIPA, JANINE #### [facility] [address] [address] Sunshine Breanna Creatinine [Mass/Vol] 0.81 mg/dL Normal 0.52-1.04 [facility] Comment on above: Performed By: #### T CANDE, CMP, LIPA, JANINE #### [facility] [address] [address] Sunshine Breanna EGFR-AF BURKINAN >60 Normal >=60 [facility] Comment on above: Performed By: #### T CANDE, CMP, LIPA, JANINE #### [facility] [address] [address] Sunshine Breanna EGFR-NON AF BURKINAN >60 Normal >=60 [facility] Comment on above: Performed By: #### T CANDE, CMP, LIPA, JANINE #### [facility] [address] [address] Sunshine Breanna Globulin (S) [Mass/Vol] 4.4 g/dL Normal [facility] Comment on above: Performed By: #### T CANDE, CMP, LIPA, JANINE #### [facility] [address] [address] Sunshine Breanna Glucose [Mass/Vol] 92 mg/dL Normal 74-106 [facility] Comment on above: Performed By: #### T CANDE, CMP, LIPA, JANINE #### [facility] [address] [address] Sunshine Breanna Potassium [Moles/Vol] 3.7 mmol/L Normal 3.4-5.0 [facility] Comment on above: Performed By: #### T CANDE, CMP, LIPA, JANINE #### [facility] [address] [address] Sunshine Breanna Protein [Mass/Vol] 7.9 g/dL Normal 6.1-8.2 [facility] Comment on above: Performed By: #### T CANDE, CMP, LIPA, JANINE #### [facility] [address] [place] [address] Sunshine Breanna Sodium [Moles/Vol] 143 mmol/L Normal 137-145 [facility] Comment on above: Performed By: #### T CANDE, CMP, LIPA, JANINE #### [facility] [address] [place] [address] Sunshine Breanna Urea nitrogen [Mass/Vol] 14.0 mg/dL Normal 7.0-17.[address] [facility] Comment on above: Performed By: #### T CANDE, CMP, LIPA, JANINE #### [facility] [address] [place] [address] Sunshine Breanna Urea nitrogen/Creatinine [Mass ratio] 17.3 mg/mg Normal [facility] Comment on above: Performed By: #### T CANDE, CMP, LIPA, JANINE #### [facility] [address] [place] [address] Sunshine Breanna PREG QUANT HCGon 06-02-2020 HCG QUANT 14 mIU/mL Normal [facility] Comment on above: Performed By: #### C IVELISSE, CVDTB #### [facility] [address] [place] [address] Sunshine Breanna HCG RANGE SEE BELOW Normal [facility] Comment on above: Result Comment: 5-50 0-1 WEEK 40-300 1-2 WEEKS 100-1,000 2-3 WEEKS 500-6,000 3-4 WEEKS 5,000-200,000 1-2 MONTHS 10,000-100,000 2-3 MONTHS 3,000-50,000 2ND TRIMESTER 1,000-50,000 3RD TRIMESTER Performed By: #### C JAYMIES, CVDTBH #### [facility] [address] [place] [address] Sunshine Breanna PREG QUANT HCGon 05-20-2020 HCG QUANT 13 mIU/mL Normal [facility] Comment on above: Performed By: #### C BC #### [facility] [address] [place] [address] Sunshine Breanna HCG RANGE SEE BELOW Normal [facility] Comment on above: Result Comment: 50 0-1 WEEK 40-300 1-2 WEEKS 100-1,000 2-3 WEEKS 500-6,000 3-4 WEEKS 5,000-200,000 1-2 MONTHS 10,000-100,000 2-3 MONTHS 3,000-50,000 2ND TRIMESTER 1,000-50,000 3RD TRIMESTER Performed By: #### C BC #### [facility] [address] [place] [address] Sunshine Breanna PREG QUANT HCGon 05-06-2020 HCG QUANT 20 mIU/mL Normal [facility] Comment on above: Performed By: #### P REGQNT #### [facility] [address] [place] [address] Sunshine Breanna HCG RANGE SEE BELOW Normal [facility] Comment on above: Result Comment: 50 0-1 WEEK 40-300 1-2 WEEKS 100-1,000 2-3 WEEKS 500-6,000 3-4 WEEKS 5,000-200,000 1-2 MONTHS 10,000-100,000 2-3 MONTHS 3,000-50,000 2ND TRIMESTER 1,000-50,000 3RD TRIMESTER Performed By: #### P REGQNT #### [facility] [address] [place] [address] Sunshine Breanna PREG QUANT HCGon 04-29-2020 HCG QUANT 21 mIU/mL Normal [facility] Comment on above: Performed By: #### P REGQNT #### [facility] [address] [place] [address] Sunshine Breanna HCG RANGE SEE BELOW Normal [facility] Comment on above: Result Comment: 550 0-1 WEEK 40-300 1-2 WEEKS 100-1,000 2-3 WEEKS 500-6,000 3-4 WEEKS 5,000-200,000 1-2 MONTHS 10,000-100,000 2-3 MONTHS 3,000-50,000 2ND TRIMESTER 1,000-50,000 3RD TRIMESTER Performed By: #### P REGQNT #### [facility] [address] [place] [address] Sunshine Carlos ABO AND RH TYPEon 04-22-2020 ABO and Rh group Nom (Bld) ABO Rh Typing O Rh Positive Normal [facility] Comment on above: Performed By: #### C BC #### [facility] [address] [place], [place] [address] Sunshine Carlos PREG QUANT HCGon 04-22-2020 HCG QUANT 37 mIU/mL Normal [facility] Comment on above: Performed By: #### P REGQNT #### [facility] [address] [id number] Sunshine Carlos HCG RANGE SEE BELOW Normal [facility] Comment on above: Result Comment: 5-50 0-1 WEEK 40-300 1-2 WEEKS 100-1,000 2-3 WEEKS 500-6,000 3-4 WEEKS 5,000-200,000 1-2 MONTHS 10,000-100,000 2-3 MONTHS 3,000-50,000 2ND TRIMESTER 1,000-50,000 3RD TRIMESTER Performed By: #### P REGQNT #### [facility] [address] [id number] Sunshine Carlos ED Note-Physicianon 10-16-19 20 ED Note-Physician [id number] 0EC#[id number]:[id number] Normal [facility] Chlam and gonorrhea: Amp, Ur ine -UHEon 01-12-2017 Chlam and gonorrhea: Amp, Urine -UHE Negative Negative THIS TEST WAS PERFORMED USING A REAL TIME PCR ASSAY. Normal [facility] Comment on above: Performed By: #### R NABU ####[address] [address] Beta HCG (Qual), Urine - [facility]CH on 01-09-2017 HCG.beta subunit ( test) Ql (U) Positive Abnormal Negative [facility] Comment on above: Performed By: #### H CGUMD, UR1MD ####[facility] [address] [place], [place] [address] Beta HCG, quant, S - MCHon 1 Beta HCG, quant, S - MCH 15433.0 mIU/mL Normal [facility] Comment on above: Result Comment: FEMA PASCUAL GESTATIONAL AGERESULTS <10 ARE CONSIDERED NEGATIVE4 WEEKS 4700-582910 mIU/mL5 WEEKS 3660-467479 mIU/mL6 WEEKS 22018-911906 mIU/mL7 WEEKS 60477-532500 mIU/mL8 WEEKS 89374-813817 mIU/mL9 WEEKS 61703-327086 mIU/mL10 WEEKS 05589-955657 mIU/mL11 WEEKS 6480-209846 mIU/ml12 WEEKS 6740-619723 mIU/mL13-27 WEEKS 8200-034536 mIU/mL28-40 WEEKS 2320-39392 mIU/mL Performed By: #### C BCMD, PTPTMD, TYSCMD, QHCGMD ####[address] [place], [place] [address] CBC, ELECTRONIC DIFF, PLATEL ET - MCHon 01-09-2017 Absolute Basophil 0.0 K/uL Normal 0.0-0.23 [facility] Comment on above: Performed By: #### C BCMD, PTPTMD, TYSCMD, QHCGMD ####[address] [place], [place] [address] Absolute Grans 5.9 K/uL Normal 1.8-7.7 [facility] Comment on above: Performed By: #### C BCMD, PTPTMD, TYSCMD, QHCGMD ####[address] [place], [place] [address] Basophils/100 WBC Auto (Bld) 0.5 % Normal 0-2 [facility] Comment on above: Performed By: #### C BCMD, PTPTMD, TYSCMD, QHCGMD ####[address] [place], [place] [address] Eosinophils 0.1 10*3/uL Normal 0.0-0.7 [facility] Comment on above: Performed By: #### C BCMD, PTPTMD, TYSCMD, QHCGMD ####[address] [place], [place] [address] Eosinophils/100 leukocytes 1.0 % Normal 0-5.0 [facility] Comment on above: Performed By: #### C BCMD, PTPTMD, TYSCMD, QHCGMD ####[facility] [place], [place] [address] Erythrocytes (RBC) 13.8 % Normal 11.5-14.5 [facility] Comment on above: Performed By: #### C BCMD, PTPTMD, TYSCMD, QHCGMD ####[address] [place], [place] [address] [employer] 64.6 % Normal 50-70 [facility] Comment on above: Performed By: #### C BCMD, PTPTMD, TYSCMD, QHCGMD ####[address] [place], [place] [address] Hematocrit (HCT) 34.5 % Low 35.0-45.0 [facility] Comment on above: Performed By: #### C BCMD, PTPTMD, TYSCMD, QHCGMD ####[address] [place], [place] [address] Hemoglobin mass conc (Bld) 31.0 pg Normal 27.0-34.0 [facility] Comment on above: Performed By: #### C BCMD, PTPTMD, TYSCMD, QHCGMD ####[address] [address] Hemoglobin mass conc (Bld) 11.7 g/dL Normal 11.7-15.5 [facility] Comment on above: Performed By: #### C BCMD, PTPTMD, TYSCMD, QHCGMD ####[address] [address] Lymphocytes 2.6 10*3/uL Normal 1.0-4.8 [facility] Comment on above: Performed By: #### C BCMD, PTPTMD, TYSCMD, QHCGMD ####[address] [address] Lymphocytes/100 leukocytes 28.7 % Normal 22.0-44.0 [facility] Comment on above: Performed By: #### C BCMD, PTPTMD, TYSCMD, QHCGMD ####[address] [address] MCH 3.78 M/uL Low 3.8-5.1 [facility] Comment on above: Performed By: #### C BCMD, PTPTMD, TYSCMD, QHCGMD ####[facility] [address] [place], [place] [address] MCH 9.1 K/uL Normal 4.5-11.0 [facility] Comment on above: Performed By: #### C BCMD, PTPTMD, TYSCMD, QHCGMD ####[facility] [place], [place] [address] MCV 91.0 fL Normal 81.0-100.0 [facility] Comment on above: Performed By: #### C BCMD, PTPTMD, TYSCMD, QHCGMD ####[facility] [place], [place] [address] Monocytes 0.5 10*3/uL Normal 0.0-0.9 [facility] Comment on above: Performed By: #### C BCMD, PTPTMD, TYSCMD, QHCGMD ####[address] [place], [place] [address] Monocytes/100 leukocytes 5.2 % Normal 0-7.0 [facility] Comment on above: Performed By: #### C BCMD, PTPTMD, TYSCMD, QHCGMD ####[facility] [place], [place] [address] Platelet mean volume (PMV) 8.3 fL Normal 7.5-11.2 [facility] Comment on above: Performed By: #### C BCMD, PTPTMD, TYSCMD, QHCGMD ####[facility] [place], [place] [address] Platelets 281 10*3/uL Normal 150-400 [facility] Comment on above: Performed By: #### C BCMD, PTPTMD, TYSCMD, QHCGMD ####[facility] [address] [place], [place] [address] ED PROVIDERon 01-09-2017 [facility] CAC NOTES Normal [facility] NOTES Normal [facility] OSUHIMCACCODINGOPEDon 2016 [facility] CAC Coding OP/ED Report Normal [facility] OSUHIMCACENCSUMon 01-09-2017 [facility] CAC Encounter Summary Report Normal [facility] PT*PTT - MCHon 01-09-2017 aPTT 33 s Normal 24.6-35.9 [facility] Comment on above: Performed By: #### C BCMD, PTPTMD, TYSCMD, QHCGMD ####[facility] [address] [place], [place] [address] INR Coag RelTime (Bld) 1.1 {INR} Normal 0.87-1.15 [facility] Comment on above: Performed By: #### C BCMD, PTPTMD, TYSCMD, QHCGMD ####[facility] [address] [place], [place] [address] MCH 13.3 sec Normal 11.5-14.3 [facility] Comment on above: Performed By: #### C BCMD, PTPTMD, TYSCMD, QHCGMD ####[facility] [address] [place], [place] [address] [facility] ABO/RH(D) - [facility]: O POSITIVE ANTIBODY SCREEN - MCH: Negative Normal [facility] Comment on above: Performed By: #### C BCMD, PTPTMD, TYSCMD, QHCGMD ####[facility] [address] [place], [place] [address] Urinalysis reflex to Cult - [facility] 01-09-2017 COMMENT URINE None Normal [facility] Comment on above: Performed By: #### H CGUMD, UR1MD ####[facility] [address] [place], [place] [address] Squamous Epithelial 2+ /HPF Normal [facility] Comment on above: Performed By: #### H CGUMD, UR1MD ####[facility] [address] [place], [place] [address] Urine, bacteria in sediment Absent Normal Absent [facility] Comment on above: Performed By: #### H CGUMD, UR1MD ####[facility] [address] [place], [place] [address] Urine, erythrocytes in sediment by area 0-2 Normal 0-2 [facility] Comment on above: Performed By: #### H CGUMD, UR1MD ####[facility] [address] [place], [place] [address] Urine, leukocytes in sedmiment 0-5 Normal 0-5 [facility] Comment on above: Performed By: #### H CGUMD, UR1MD ####[facility] [address] [place], [place] [address] Bilirubin Urine Negative Normal Negative [facility] Comment on above: Performed By: #### H CGUMD, UR1MD ####[facility] [address] [place], [place] [address] Blood Urine Moderate Abnormal Negative [facility] Comment on above: Performed By: #### H CGUMD, UR1MD ####[facility] [address] [place], [place] [address] Nitrites Urine Negative Normal Negative [facility] Comment on above: Performed By: #### H CGUMD, UR1MD ####[facility] [address] [place], [place] [address] Protein Urine Negative Normal Negative [facility] Comment on above: Performed By: #### H CGUMD, UR1MD ####[facility] [address] [place], [place] [address] Specific [place] urine 1.020 Normal 1.001-1.035 [facility] Comment on above: Performed By: #### H CGUMD, UR1MD ####[facility] [address] [place], [place] [address] Urine, appearance Clear Normal Clear [facility] Comment on above: Performed By: #### H CGUMD, UR1MD ####[facility] [address] [place], [place] [address] Urine, color Yellow Normal YEL,DKYEL [facility] Comment on above: Performed By: #### H CGUMD, UR1MD ####[facility] [address] [place], [place] [address] Urine, glucose presence Negative Normal Negative [facility] Comment on above: Performed By: #### H CGUMD, UR1MD ####[facility] [address] [place], [place] [address] Urine, ketones presence Negative Normal Negative [facility] Comment on above: Performed By: #### H CGUMD, UR1MD ####[facility] [address] [place], [place] [address] Urine, leukocyte esterase presence Negative Normal Negative [facility] Comment on above: Performed By: #### H CGUMD, UR1MD ####[facility] [address] [place], [place] [address] Urine, pH 6.0 [pH] Normal 5.0-7.0 [facility] Comment on above: Performed By: #### H CGUMD, UR1MD ####[facility] [address] [place], [place] [address] Urobilinogen urine 0.2 EU/dL Normal <2.0 [facility] Comment on above: Performed By: #### H CGUMD, UR1MD ####[facility] [address] [place], [place] [address] Vital Signs Date Time Vital Sign Value Performing Clinician Facility 12-18-2023 15:06-0400 Body mass index (BMI) [Ratio] 35.54 kg/m2 [employer] Work Phone: [facility] 12-18-2023 15:06-0400 Body weight 106.03 kg [employer] Work Phone: [facility] 12-18-2023 15:06-0400 Diastolic blood pressure 68 mm[Hg] Dmitriy Rodo [employer] Work Phone: [facility] 12-18-2023 15:06-0400 Systolic blood pressure 108 mm[Hg] Dmitriy Rodo [employer] Work Phone: [facility] 03-29-2021 11:15-0500 Body height 172.72 cm Arminda Holt Other [facility] Other 03-29-2021 11:15-0500 Body mass index (BMI) [Ratio] 36.49 kg/m2 Arminda Holt Other [employer] Other 03-29-2021 11:15-0500 Body temperature 97 [degF] Arminda Holt Other [employer] Other 03-29-2021 11:15-0500 Body weight 108.86 kg Arminda Holt Other [employer] Other 03-29-2021 11:150500 SaO2% (BldA) [Mass fraction] 99 % Arminda Holt Other [employer] Other Encounters Encounter Date Encounter Type Care Provider Facility Start: 12-19-2023 End: 12-19-2023 ambulatory [facility] Start: 12-18-2023 End: 12-18-2023 ambulatory [...] Not Available Start: 11-22-2023 End: 11-22-2023 ambulatory [facility] Start: 11-20-2023 End: 11-20-2023 ambulatory DMITRIY RODO Not Available Start: 10-25-2023 End: 10-25-2023 ambulatory DMITRIY [facility] Start: 10-24-2023 End: 10-24-2023 ambulatory JANINE THOMAS Not Available Start: 09-24-2023 End: 09-24-2023 ambulatory DMITRIY RODO Not Available Start: 08-22-2023 End: 08-22-2023 ambulatory DMITRIY RODO Not Available Start: 07-26-2023 End: 07-26-2023 ambulatory DMITRIY RODO Not Available Start: 03-29-2021 End: 03-29-2021 ambulatory Arminda Holt Other [facility] Other Start: 03-29-2021 Office outpatient ne w [...] 01-09-2017 Emergency department patient visit [facility] Procedures Date Procedure Procedure Detail Performing Clinician Start: 12-18-2023 Urnls dip stick/tabl et rgnt non-auto w/o micrscp Dmitriy Koehler DO Work Phone: Plan of Treatment Date Care Activity Detail Author Start: 01-01-2024 End: 01-01-2024 Patient encounter procedure 01/01/2024 1:00 PM EDT Routine [facility] [address] [place] [id number] Janine Guzman PA [address] [place] [address] [facility] Start: 12-18-2023 End: 12-17-2024 US biophysical profile w non stress test US biophysical profile w non stress test Imaging Routine H/O placenta previa Expected: 12/18/2023 (Approximate), Expires: 12/17/2024 [facility] Work Phone: Comment on above: Expected: 12/18/2023 (Approximate), Expires: 12/17/2024 Payers Date Payer Category Payer Unknown BCBS BCBS xxxxxx [id number] 2022-Present [phone] [address] [place] [address] [id number] 2022 Unknown [id number] 2017 Unknown [id number] 1989 Unknown [id number] 2.16.840.1.537115.3.579.2. 593 1989 Unknown [id number] 2.16.840.1.512458.3.579.2. 593 1989 Unknown [id number] 2.16.840.1.225045.3.579.2. 593 1989 Unknown [id number] 2.16.840.1.937017.3.579.2. 593 1989 Unknown [id number] 2.16.840.1.998821.3.579.2. 593 1989 Unknown [id number] 2.16.840.1.782051.3.579.2. 593 1989 Unknown [id number] 2.16.840.1.900898.3.579.2. 593 1989 Unknown [id number] 2.16.840.1.609350.3.579.2. 593 1989 Unknown [id number] 2.16.840.1.374765.3.579.2. 1286 1989 Unknown [id number] 2.16.840.1.254784.3.579.2. 1286 1989 Unknown [id number] 2.16.840.1.653112.3.579.2. 1286 1989 Unknown [id number] 2.16.840.1.077565.3.579.2. 1259 1989 Unknown [id number] 2.16.840.1.312607.3.579.2. 9 1989 Unknown [id number] 2.16.840.1.690404.3.579.2. 9 1989 Unknown [id number] 2.16.840.1.524532.3.579.2. 1258 1989 Unknown [id number] 2.16.840.1.916823.3.579.2. 1258 1989 Unknown [id number] 2.16.840.1.940093.3.579.2. 1258 1989 Unknown [id number] 2.16.840.1.748886.3.579.2. 1258 1989 Unknown [id number] 2.16.840.1.543649.3.579.2. 1286 1959 Private Health Insurance [id number] Self-pay [id number] Unknown [id number] 2.16.840.1.838448.19 Social History Date Type Detail Facility Start: 08-22-2023 Sex Assigned At [facility] Other Start: 08-22-2023 End: 12-18-2023 Tobacco smoking status WIIS Ex-smoker [facility] Start: 08-18-2015 End: 09-19-2014 History of tobacco use Current smoker [facility] Start: 08-18-2015 End: 09-19-2014 History of tobacco use Cigarette Smoker [facility] Start: 08-22-2023 End: 12-18-2023 Cigarettes smoked current (pack per day) - Reported 0.5 [facility] Start: 08-22-2023 End: 12-18-2023 Tobacco use and exposure Smokeless tobacco non-user [facility] Start: 12-04-2023 End: 12-18-2023 Alcoholic beverage intake Ex-drinker (finding) [facility] Start: 05-30-2023 [facility] Start: 1990 Sex assigned at Not on file [facility] Start: 07-26-2023 Gender identity Identifies as [...] nursing note reviewed. Exam conducted with a painter helper present. Vitals: Estimated body mass index is [...] Dmitriy Koehler DO documented in this encounter [facility] Evaluation note 03-29-2021 Note Date & Type [...] care instructions given in writting by [facility] At Home document. [employer] Other Evaluation note Note Date & Type [...] section and content) DATE CREATED AUTHOR 09/11/2017 [facility] DATE CREATED AUTHOR AUTHOR'S ORGANIZ ATION 10/18/2019 [facility] DATE CREATED AUTHOR AUTHOR'S ORGANIZ ATION 11/24/2020 [facility] DATE CREATED AUTHOR AUTHOR'S ORGANIZ ATION 04/08/2021 [facility] DATE CREATED AUTHOR AUTHOR'S ORGANIZ ATION 04/18/2021 [facility] DATE CREATED AUTHOR AUTHOR'S ORGANIZ ATION 06/24/2021 [facility] DATE CREATED AUTHOR AUTHOR'S ORGANIZ ATION 11/24/2023 [facility] DATE CREATED AUTHOR AUTHOR'S ORGANIZ ATION 12/20/2023 [facility] dical Specialists [facility] DATE CREATED AUTHOR AUTHOR'S ORGANIZ ATION 12/21/2023 [facility] REASON FOR VISIT (unrecogniz ed [...] BE BASED ON THE PRIMARY CLINICAL RECORDS. [facility] [employer] [facility]. provides no warranty or guarantee of the accuracy or completeness of information in this document.
[2023-12-31 14:02] VITALS: BP 120/77; PULSE 93
== END 2023-12-31 14:34 | disposition home or self-care (01) ==
LOC: FBCO 07:07 → FBC 13:56
PROVIDERS: Visit Provider Obstetrics & Gynecology
DX: O43.899 Other placental disorders, unspecified trimester (principal); Z3A.00 Weeks of gestation of pregnancy not specified
CPT/HCPCS: 59025

== ENCOUNTER 2024-01-03 06:55 | Outpatient (OUT) | payer BC, SELFPAY ==
--- NOTE | 2024-01-03 | US_ITS ---
[address] [address] Patient Name: MATTY HOLLEY MRN: [id number] date: 1990 Sex: F Assigned Patient Location: [facility] Current Patient Location: [facility] Accession/Order Number: [id number] Exam Date: 01/03/2024 13:08 Report Date: 01/03/2024 13:45 At the request of: DMITRIY BOWIE Procedure: US OB BPP w non-stress EXAMINATION: US OB BPP w non-stress HISTORY: HISTORY OF PLACENTA PREVIA Z87.59 COMPARISON: No relevant comparison available. TECHNIQUE: Ultrasound biophysical profile was performed in the radiology department. non-reactive stress testing was performed by nursing staff in the birthing center. FINDINGS: BREATHING MOVEMENTS: 2 GROSS BODY MOVEMENTS: 2 TONE: 2 QUALITATIVE AMNIOTIC FLUID VOLUME: 2 PRESENTATION: CEPHALIC HEART RATE: 133.00 bpm AMNIOTIC FLUID VOLUME: 18.96 cm GESTATIONAL AGE: 33 weeks 1 day US/US OB BPP w non-stress IMPRESSION: Total biophysical profile score: 8 Electronically authenticated by: MIGUEL BENAVIDES Date: 01/03/2024 13:45
--- OUTSIDE RECORDS SUMMARY | 2024-01-03 06:57 | XMS_ITS | CCD ---
Author Organization [facility] CliniSyut Care Team Providers Care Tight Rope Walker Name Role Phone SELF, SELF Unavailable Unavailable [...] Drug Class(es) Dates Sig (Normalized) Sig (Original) [id number] 200 actuat albuterol 0.09 mg/actuat metered dose [...] 03-29-2021 Episodic Other aftercare (1 source) Other assisted (current) drug therapy; Translations: [OTH ALF CURRENT DRUG THERAPY] Onset: 08-19-2020 Episodic Residual [...] UA Negative Negative - 4(70) +++ mg/dL [facility] Blood, UA Negative Negative - 50 Wili/mcL [facility] Clarity, UA Clear [facility] Color, UA Yellow [facility] Glucose, UA Negative Negative - 2000(110) ++++ mg/dL [facility] Interpretation and review of laboratory results Abnormal [facility] Ketones, UA Negative Negative - 160(16) ++++ mg/dL [facility] Leukocytes, UA Negative Negative - 500+++ Yajaira/mcL [facility] Nitrite, UA Negative Negative - Positive [facility] pH, UA 6.5 5 - 9 [facility] Protein, UA Trace Negative - 2000(20) ++++ mg/dL [facility] Spec Grav, UA 1.030 1 - 1.03 [facility] Urobilinogen, UA 0.2 0.2 - 12 mg/dL [facility] Complete Blood Count Auto Di ffon 06-14-2021 Basophils (Bld) [#/Vol] 0.0 10*3/uL Normal 0.0-0.2 [facility] Comment on above: Result Comment: PERF ORMED BY: [place] [address] PATHOLOGIST CLIENT RESOLUTION SPECIALIST STEPHANIE ROACH M.D. Performed By: #### C BC #### [address] Basophils/100 WBC (Bld) 0.6 % Normal . [facility] Comment on above: Performed By: #### C BC #### [address] Eosinophils (Bld) [#/Vol] 0.1 10*3/uL Normal 0.0-0.45 [facility] Comment on above: Performed By: #### C BC #### [address] Eosinophils/100 WBC (Bld) 1.7 % Normal . [facility] Comment on above: Performed By: #### C BC #### [address] Erythrocyte distribution width (RBC) [Ratio] 13.5 % Normal 11.9-15.3 [facility] Comment on above: Performed By: #### C BC #### [address] Hematocrit (Bld) [Volume fraction] 30.6 % Low 34.0-46.4 [facility] Comment on above: Performed By: #### C BC #### [address] Hemoglobin (Bld) [Mass/Vol] 10.2 g/dL Low 11.8-15.4 [facility] Comment on above: Performed By: #### C BC #### [address] Lymphocytes (Bld) [#/Vol] 2.1 10*3/uL Normal 1.00-4.8 [facility] Comment on above: Performed By: #### C BC #### [address] Lymphocytes/100 WBC (Bld) 24.1 % Normal . [facility] Comment on above: Performed By: #### C BC #### [address] MCH (RBC) [Entitic mass] 31.4 pg Normal 24.7-34.3 [facility] Comment on above: Performed By: #### C BC #### [address] MCV (RBC) [Entitic vol] 94.0 fL Normal 80-100 [facility] Comment on above: Performed By: #### C BC #### [address] Mean Corpuscular HGB Conc 33.4 g/dL Normal 32.0-35.0 [facility] Comment on above: Performed By: #### C BC #### [address] Monocytes (Bld) [#/Vol] 0.4 10*3/uL Normal 0.0-0.8 [facility] Comment on above: Performed By: #### C BC #### [address] Monocytes/100 WBC (Bld) 4.9 % Normal . [facility] Comment on above: Performed By: #### C BC #### [facility] [address] [place] [address] [place] Neutrophils (Bld) [#/Vol] 5.9 10*3/uL Normal 1.8-7.7 [facility] Comment on above: Performed By: #### C BC #### [facility] [address] [place] [id number] [facility] Neutrophils/100 WBC (Bld) 68.7 % Normal . [facility] Comment on above: Performed By: #### C BC #### [facility] [address] [place] [address] [place] Nucleated RBC/100 WBC (Bld) [Ratio] 0.1 % Normal 0-0.5 [facility] Comment on above: Performed By: #### C BC #### [facility] [address] Platelet mean volume (Bld) [Entitic vol] 8.0 fL Normal 6.3-10.7 [facility] Comment on above: Performed By: #### C BC #### [facility] [address] [place] [address] [place] Platelets (Bld) [#/Vol] 298 10*3/uL Normal 150-450 [facility] Comment on above: Performed By: #### C BC #### [facility] [address] [place] [address] [place] RBC (Bld) [#/Vol] 3.25 10*6/uL Low 3.60-5.00 [facility] Comment on above: Performed By: #### C BC #### [facility] [address] [place] [address] [place] WBC (Bld) [#/Vol] 8.6 10*3/uL Normal 4.5-11.0 [facility] Comment on above: Performed By: #### C BC #### [facility] [address] [place] [address] [place] Dipstick and Microscopicon 0 06-14-2021 Appearance (U) Clear Normal Clear [facility] Comment on above: Order Comment: Name Collection Type:: Clean-Voided Midstream Performed By: #### A DDONUAPLUS, OBUDS #### [facility] [address] [place] [address] [place] Bacteria,Urine None Seen Normal None Seen [facility] Comment on above: Order Comment: Name Collection Type:: Clean-Voided Midstream Performed By: #### A DDONUAPLUS, OBUDS #### [place] [address] [place] Bilirubin,Urine Negative Normal Negative [facility] Comment on above: Order Comment: Name Collection Type:: Clean-Voided Midstream Performed By: #### A DDONUAPLUS, OBUDS #### [address] Color (U) Yellow Normal Yellow [facility] Comment on above: Order Comment: Name Collection Type:: Clean-Voided Midstream Performed By: #### A DDONUAPLUS, OBUDS #### [place] [address] [place] Glucose Ql (U) Normal Normal Normal [facility] Comment on above: Order Comment: Name Collection Type:: Clean-Voided Midstream Performed By: #### A DDONUAPLUS, OBUDS #### [place] [address] [place] Hyaline Casts,Urine 0-8 Normal 0-8 [facility] Comment on above: Order Comment: Name Collection Type:: Clean-Voided Midstream Result Comment: PERF ORMED BY: [place] [address] PATHOLOGIST CLIENT RESOLUTION SPECIALIST STEPHANIE ROACH M.D. Performed By: #### A DDONUAPLUS, OBUDS #### [place] [address] [place] Ketones Ql (U) Negative Normal Negative [facility] Comment on above: Order Comment: Name Collection Type:: Clean-Voided Midstream Performed By: #### A DDONUAPLUS, OBUDS #### [place] [address] [place] Leukocyte esterase Test strip Ql (U) Negative Normal Negative [facility] Comment on above: Order Comment: Name Collection Type:: Clean-Voided Midstream Performed By: #### A HARJIT OBUDS #### [place] [address] [place] Nitrite,Urine Negative Normal Negative [facility] Comment on above: Order Comment: Name Collection Type:: Clean-Voided Midstream Performed By: #### A DDSHENA OBUDS #### [address] Occult Blood,Urine 3+ High Negative [facility] Comment on above: Order Comment: Name Collection Type:: Clean-Voided Midstream Result Comment: PERF ORMED BY: [place] [address] PATHOLOGIST CLIENT RESOLUTION SPECIALIST STEPHANIE ROACH M.D. Performed By: #### A HARJIT OBUDS #### [address] pH (U) 7.5 [pH] Normal 5.0-9.0 [facility] Comment on above: Order Comment: Name Collection Type:: Clean-Voided Midstream Performed By: #### A DDSHENA OBUDS #### [address] Protein,Urine Negative Normal Negative [facility] Comment on above: Order Comment: Name Collection Type:: Clean-Voided Midstream Performed By: #### A DDSHENA OBUDS #### [place] [address] [place] RBC,Urine 20-49 High 0-4 [facility] Comment on above: Order Comment: Name Collection Type:: Clean-Voided Midstream Performed By: #### A MARIBETHUAJOHANNA OBUDS #### [address] Specificy [place],Urine 1.009 Normal 1.001-1.030 [facility] Comment on above: Order Comment: Name Collection Type:: Clean-Voided Midstream Performed By: #### A DDONUAPLUS, OBUDS #### [facility] [address] Squamous Epithelial Cell,Urine 1-2 Normal 0-2 [facility] Comment on above: Order Comment: Name Collection Type:: Clean-Voided Midstream Performed By: #### A DDONUAPLUS, OBUDS #### [place] [address] [place] Urobilinogen,Urine Normal Normal Normal [facility] Comment on above: Order Comment: Name Collection Type:: Clean-Voided Midstream Performed By: #### A DDONUAPLUS, OBUDS #### [address] WBC,Urine None Seen Normal 0-4 [facility] Comment on above: Order Comment: Name Collection Type:: Clean-Voided Midstream Performed By: #### A DDONUAPLUS, OBUDS #### [address] OB Urine Drug Screen (NO THC )on 06-14-2021 Amphetamine Screen,Urine Negative Normal Negative [facility] Comment on above: Performed By: #### A DDONUAPLUS, OBUDS #### [address] Barbiturate Screen,Urine Negative Normal Negative [facility] Comment on above: Performed By: #### A DDONUAPLUS, OBUDS #### [place] [address] [place] Benzodiazepines Screen,Urine Negative Normal Negative [facility] Comment on above: Performed By: #### A DDONUAPLUS, OBUDS #### [facility] [address] [place] [address] [place] Cocaine Screen,Urine Negative Normal Negative [facility] Comment on above: Performed By: #### A DDONUAPLUS, OBUDS #### [address] Opiate Screen,Urine Negative Normal Negative [facility] Comment on above: Performed By: #### A DDONUAPLUS, OBUDS #### [facility] [address] Phencyclidine Screen, Urine Negative Normal Negative [facility] Comment on above: Result Comment: Thes e are unconfirmed results and should not be used for legal purposes. Drug Cut-Off Concentration: AMPH 1000 ng/mL NOLBERTO 200 ng/mL BIANCA 200 ng/mL COCM 300 ng/mL OP 300 ng/mL PCP 25 ng/mL PERFORMED BY: [facility] [address] [place] [address] PATHOLOGIST CLIENT RESOLUTION SPECIALIST STEPHANIE ROACH M.D. Performed By: #### A DDONUAPLUS, OBUDS #### [facility] [address] US OB 2nd/3rd Trimesteron OB 2nd/3rd [...] 4.6 cm (19 weeks, 6 days) Head Luctidwgtpmby73.3 cm (19 weeks, 0 days) Abdominal Xrqdmdhpefubb42.6 cm (19 weeks, 0 days) Femur Length 3.1 cm (19 weeks, 3 days) PresentationBreech Weight (g) by Yaibovxfdu37.4%* These measurements result in an estimated date [...] by Ayo Jiménez on 04/18/2021 0921 Normal [facility] Specialist Coding Summaryon 04-07-2021 Coding Summary HTMLBase 64 KonirffmLVd0iAk+PG hlYWQ+KC7QTIIsJ62t kXEkcW1WY3fDWW8UIW ZJVITNSD4YDS3blBN1 MOaqM2IkquGd UbkvfLMzNE73GKq6XB L6cGjpGDmfeO1bjIQj Y7k5RzIsAI46zB47IB dyZFVpSuQ4KqEcjdjr bWFy V6uhWkHkjRVuRjd+PH RhYmxlIHdpZHRoPScx URRaNxLhbPehRJ3bKp 9yZGVyLWNvbGxhcHNl OiBj o8imHXDaXNoiWR2wpV mcF0QwmWZ8AMYrs4q6 Kz57vNK+LVImEQP3vE zpBCxrr243ToUcn1dl IDM3 gBEmIGklZVK9Y54zy7 Z2NHQeCILzHHV2tHX7 mR2evFbzmdjdD9AeuL NtTgU6QOW1sAKzwF5u bGln syoxaQ1yAyh+Q09ESU 1KEPTWMM7ENiu1F4Zm PjwvdHI+AH03UJJrIU 00kXFbgZMyl0ukzRy1 JzEw KWRySTU7lIjqBAhpu2 XyMVEmG14kpFXcs3T4 IGNvbGxhcHNlOyBlbX D0uR6bCImhylxth5kt dzsn Qmwsc4ujpy35bL47W7 0yBNtkUVVxYWB7KSEt VNAycXrhtg2gsE1cNl 8+SPkff2mav9pgzTg3 IjIw TBZmynSgvEatNVD7a9 OkOm34F5UglRqye4Yy Nzs5ay77vRJcr1J9iE U9RSetLXNjxI9sHNdw ZnQ6 OGZwDoApdO66xRAkCW vzMv1wsTobhVhsTS2z UMStopzbVQBuyN3rVF YccTDfuKsjCG4uRWAd bjtm w826ZcDrVLL4YADorU BcR0GldM3mTjCuSUWq XPTzB1FmdEDhWGiwE3 92GWhbDnT8UBSlraNj Y2Fs VNHukTdqUbY5i8J1Ao 6Hi8DptobpJXR6ZQwa XILxEtUlWxDpAjX2U5 XxSys7USLfzQoyGY7b J3Bh PAFdlzxdwzvfrTM6CR GhXKUwtB55sQBnPCka Jt6jn2F2p075LVRgAX EwoV20Ru3bbKgwARJg dCBU uS2yqsicu3llgtxpTy LiKXRvWUo6YTx0MUXj hPlcGzOqQOY5ViI1BA U7yIMdrA9xeUljhwyj dG9w Oyc+P64fyI6gQRF1VQ E5vziiWZLgozVbMD38 KU10G0PdBrlgjOYtrX U+NXWgsiCbgMrtBC8g YmFj l5rjm9GfCOofL8RvCU VyKNshOrx9OAQaVHP4 nBB6eZ5rIBExQZveu2 Q1mSR9B4YcxfVvrf2g b2xs KCXuKAvbP58ghLBob9 U6ADQrpKV7KXUytQkj NmDuqM15Oav+PGNvbG cbg4YwXpwdc0ugt3no dGg9 IjMwJSIgdmFsaWduPS A5o0MjZi33O96aTQwv ZHRoPSIxNSUiIHZhbG eqll8swC0wPg5+PGNv bCB3 wYB3kU7hBHOrBqL4CK dzY648ZmDnpQMkXqch u5gfz1zxfXe1UzFhWI LlqdWouWpnTEN1r4Wv Lz48 Q44mZWscXYMeKIPsGE FeLLDywWkzsx6zuR3v Ii8+HU5bj1jtna21dT 48dHI+YVEwOVE0vWdf PSdw IUEblW6lAUxrAzI0SU PqShGauT60mKOeJKsa Hm7nxRdlbNyjUQ3mJW Pvrslwk839BdTfw7ud IDEw nLYbAUjnUCH3P19of0 A9LCVvEKQsCAH2eWR3 wN7ykHqjisbeoZOfdR sgdmVydGljYWwtYWxp Z246 IHRvcDsnPlBhdGllbn RjQrDbMIg1B9MtQck6 AAUraQydYA3woHPwEP uiQq9ovZeuwCqfFF2x NTBp xjtwq147EsBfb5ddSK ChvBFeIMrkQLA5Z36r m6D8KSNhQBNuBNI2cB I8rZ1leMsnmaqgtVAp dDsg dmVydGljYWwtYWxpZ2 46IHRvcDsnPkJpcnRo AFJaqPP7NH87UP31zF Utr9N2wSM0W3UpPZXk bmct ybmrnAT2HJXgMDVrnX 32Yr5ipAiiXe2vVEMd LCD1YHQsqMIsH1UgyH 0fWwPpIIXcHIMeH9Ha eHQt ZBniJ686GOucWuZ9RA WujvTgO5GlACJugZwg AdG7q6K9Fp0JX9V4EK 90GC12yBJlf9Y6kJF6 J3Bh XWJspznllpnsfOC4HL SzWYFcfO52Cz7xjDjy Uu2cTLPyFKZ3PPWcvX HmW5PjcA4kUuCrVVBq MDAw W6XtgCShBStgY244PK fmNvH8VWWtcbDfF8Xy SQLbaXaaUoL8w9L4Hp 5XLUd6ML88SU47mAHm c3R5 yZW9U1XnLYFydkzucg sxdZG1CMUsTBDdjK80 Dq3qeOxjZp7dQZVcWX A1BEHheOAtQ6GffU6w OiAj UPWfHBRxS5KmuCDuFW kbQ927KXnqAbE7PLUc fkOhQ6OpKVNcmLblPs G6j5V7Ni4PUJJoYT92 IFR5 qKJ2WU41RZ75Q4KfBx wvdGFibGU+PHRhYmxl IHdpZHRoPScxMDAlJy VfjMsgOJ9tTk1eODFc LWNv zEqbqBMdUdOsw8hrCK AzBAfhSP6ogWfeK9Lk iRJ6ODCnx2w0Vx42H0 5rJ2ZlyBV+PGNvbCB3 aWR0 gK2mAlJrFkG3ARjdP3 31BsFtmABaJusez7mn n5sozKk5MhM1MDDuxr KyxFqtZPF4w8CfOc46 Y29s IHdpZHRoPSIxNSUiIH IyjOwneg5tlT6cHc6+ ZSMxdLQ0bHE4oF1cJd OdFuG1LXfbM599DdYn cCIv Kvkpk3gyn8astPs0Qx IwJSIgdmFsaWduPSJ0 b1BfTb03Q7AymHgue6 WgMmn7ip00zSXdl1I8 bGU9 Z1KpPJIkmsikrFKstO cwES8rHLVusaynVEIp vS8bWGGdN3r6UsLnNu K4MCpuX7JfbuC1ODFv cHQg PHlaVLZ3Y45dz4S0HW AnXWVgJNL9yLI2lQ5v bGlnbjogbGVmdDsgdm BodXpcKMccKJfaB247 IHRv iLtnBOYtrY5bRROkzD FiaUaaGR2rGMYnidef IqTVUuQMAltlES5CQD JOVLI9Q7CfGme9OWAv dHls JI9gpUTeURjjEs9syK ddbEzeUY3vEKXkxyvn JSYstK5vHTFddPDscH msSP0yYMGdrjtoh253 OiAx UIB1OHLgzRPhV7JerU 5zQeYmIAXiARSiV7Jp tKYfOVqwF011GAzmXz G7XDKjifNkY1CaWLAw aWdu YrE2g1Z9Fe2yXd8aQp 7iKHgpAR46TD02pIHg z7X2cLA4Q2KxLKNjhc htbajppFO1YHPpQEGp aW47 oHUiHFstPn6tr1P6l6 72HRBzOKCqlA73Xm9p lBmhMOYczKJXbD0jao zst2yorwahHcVpSQJs MDt0 LNh2NUMfoPosLyFsCQ N1QlZ2EPL3dDEjeX2l fKwkrcrphE7tJgy+Mz VsMNQrdeC7Z2KtZmd8 ZCBz lYruTS3etVBaBXrrLz 8grKsmwQgeNR6zCVPn mfvcKJVnwV1lNSZmlS GmuWqeVH0aYCXpbsse b250 TfDgWMW8GJVzuIPnV0 KeqV1lVpTyZOFtTDTl F2AbsMPiQZzcR928QT hxYmS8RIBhsyHxJ8Vm LWFs aMurQzW6s0S9Fr3PCQ 6URBK8V5SdNss0DGGg rHzqVT8jjMHyPSltXo 0rsXionCpfMF4xXLLq bjtw FKFpkY4fFSFkkZSkfE dnYW6cWFOhpedth326 MwZuTLS5NMJdpJCjU3 SdsT0aJpHaZRPdUZJd O3Rl tRVlJRvoS857LBnzPv R5DCKawnKbS1EzRNFb uVmpBtV8t3K6Vo5PDJ wvdGQ+GK18rb72L5Rd Ymxl Uhl3JVYcLIR6hGM7oT 3rKZJvPKmnw0Y0rFV5 B5HcgwJnph2fl7yePY RcAQfnH05xvSPvk3N7 IGVt hXS5SEGprPlvIhSlxY 93Oyc+SFJyyGzbm5Is Ddwqb1cfm3cjtQg3Gn MwJSIgdmFsaWduPSJ0 b3Ai Li13I90aYFvyMRVbVT WzNDUnBLHjhAfmxq6g yE2sOx3+RGNicSP4lI D1sN1mCvKoPmH7RJhb Z249 XmYteTLlYsent4bwx2 ntrTc4DeTqWIIgkhLz gSbmDYY0m4BsUp40R1 VuqXvgh9DiEru1vh38 dGQg c7H5nGV6J6DbPXFdgz wvyOPdbCwkIA4nNZDu phpuIWOauB9gTAMmG3 o8UyTiWdE8HCigH0Yz bnQ6 IGJvbGQgMTBwdCBUaW 5ezhsdh0ghcfhmIfYu YTAmPAz9EMo2CPRsjR szMvMlLFF9DiR0VWS1 aWNh pM9pmLelsiuzpV4rSd c+SOr3d8btaLUiMB2t jQM6QE06NE56xOByb5 N7hWY3T9XqLRDdnfar cmln vYQ2CPLoWTHqaA37An 6xaLtgNu1vMKWoKQB7 BNKagXYeY4ExuR5bNq BqJSVwIZXmQ4TxmHDd YWxp D830MJfrWaM6VAZryl MaX8RmZCJqoXnlJvQ7 z2V9Od8TBV58JM28DE 91aLJce8C5fIG7S3Uw ZGRp nrahznfrfFE3SGDyQC IphV56Ec0wfAeoOg2d CVTnWNK3CBCruIYzG6 JjxR2yEoPuVOSaSLBf O3Rl zGKoWPrvZ050VWoxXu P7ZFYzeiNcG5RcBMXl fNkpWlW4u0Y2Ir3ODd 11OY13IA53iWVzh4I1 bGU9 C2HdZKUyblvaxleynR U6CLHdYVOmjL06Ea2e iZtaTg0uSKTpVLE7UY ZxaKRaN9NpbY0gYdCh MDAw VMCrS6FvlVZpILsdY4 99FFomMtG7HPFgsxNs Q1CwXQHddRnaGoZ1k5 F0Bi9MEXbzpac9N9Jp Pjwv dHI+AJ84BPCzEB83sS RpyMFbi5volGe2SkJw YUYtYZG8vGzbLDaeb3 AuZZUvE89shYOip4F7 IGNv bGx (more content not included)... [facility] Consent Formson 04-01-2021 Consent Forms [id number]2021 Provider Orders [id number] Quick Testingon 2021 Result Positive [employer] Other HERPES SIMPLEX VIRUS 1/2 DNA PCRon 11-11-2020 HSV-1 DNA Negative Normal Negative [facility] Comment on above: Performed By: #### C BC #### [facility] [address] [place] [address] Sunshinevinita Gonzalezen HSV-2 DNA Positive Abnormal Negative [facility] Comment on above: Result Comment: This test was developed and its performance characteristics determined by [employer]. It has not been cleared or approved by the [place]. Food and Drug Administration. The FDA has determined that such clearance or approval is not necessary. This test is used for clinical purposes. It should not be regarded as investigational or research. Performed By: #### C BC #### [facility] [address] [place], [place] [id number] Sunshine Carlos CULTURE URINEon 11-10-2020 CULTURE URINE [...] F Tetracycline <=0.25 S F Normal [facility] Comment on above: Performed By: #### C BC #### [facility] [address] [place] [address] Sunshine Carlos CHLAMYDIA/GONOCOCCUS TINA (SW AB/URINE/PAPon 11-09-2020 Chlamydia trachomatis, TINA Negative Normal Negative [facility] Comment on above: Performed By: #### C T/NGNA #### [facility] [address] [place] [address] Sunshine Carlos Neisseria gonorrhoeae, TINA Negative Normal Negative [facility] Comment on above: Performed By: #### C T/NGNA #### [facility] [address] [place] [address] Sunshine Carlos Covid-19 PCR ([facility])on 10-18 SARS-CoV-2 (COVID-19) RNA TINA+probe Ql (Unsp spec) Not detected Normal NOT DETECTED [facility] Comment on above: Result Comment: This test is not yet approved or cleared by the [place] FDA. When there are no FDA-approved or cleared tests available, and other criteria are met, FDA can make tests available under an emergency access mechanism called an Emergency Use Authorization (EUA). The EUA for this test is supported by the [employer] of Health and Human Service's (HHS's) declaration [...] Performed By: #### C VDAGS, CVDTBH #### [facility] [address] [place] [address] Sunshine Carlos ER URINE PROFILEon Bilirubin Ql (U) Negative Normal NEGATIVE [facility] Comment on above: Performed By: #### C BC #### [facility] [address] [address] Sunshine Breanna Clarity (U) CLEAR Normal CLEAR [facility] Comment on above: Performed By: #### C BC #### [facility] [address] [place] [address] Sunshine Breanna Color (U) LT. YELLOW Normal YELLOW [facility] Comment on above: Performed By: #### C BC #### [facility] [address] [place] [address] Sunshine Breanna ERUAHD A micrscopic examination will be performed if indicated. Normal [facility] Comment on above: Performed By: #### C BC #### [facility] [address] [place] [address] Sunshine Breanna Glucose Ql (U) Negative Normal NEGATIVE [facility] Comment on above: Performed By: #### C BC #### [facility] [address] [place] [address] Sunshine Breanna Hemoglobin Ql (U) LARGE Abnormal NEGATIVE [facility] Comment on above: Performed By: #### C BC #### [facility] [address] [place] [address] Sunshine Brenana Ketones Ql (U) Negative Normal NEGATIVE [facility] Comment on above: Performed By: #### C BC #### [facility] [address] [place] [address] Sunshine Breanna LEUKOCYTES Negative Normal NEGATIVE [facility] Comment on above: Performed By: #### C BC #### [facility] [address] [place] [address] Sunshine Breanna Nitrite Ql (U) Negative Normal NEGATIVE [facility] Comment on above: Performed By: #### C BC #### [facility] [address] [place] [address] Sunshine Breanna pH (U) 5.5 [pH] Normal 5-9 [facility] Comment on above: Performed By: #### C BC #### [facility] [address] [place] [address] Sunshine Breanna SPEC GRAVITY >=1.030 Abnormal 1.005-<=1.02 5 [facility] Comment on above: Performed By: #### C BC #### [facility] [address] [place] [address] Sunshine Carlos UA PROTEIN Negative Normal NEGATIVE/ TRACE [facility] Comment on above: Performed By: #### C BC #### [facility] [address] [place] [address] Sunshine Carlos UR MICRO IND INDICATED Normal [facility] Comment on above: Performed By: #### C BC #### [facility] [address] [place] [address] Sunshine Carlos Urobilinogen Qn (U) 0.2 {Braden'U}/dL Normal 0.2 - 1. 0 [facility] Comment on above: Performed By: #### C BC #### [facility] [address] [place] [address] Sunshine Carlos URon 11-08-2020 , QUAL Negative Normal NEGATIVE [facility] Comment on above: Performed By: #### C BC #### [facility] [address] [place], [place] [id number] Sunshine Carlos STREPT SCREENon 11-08-2020 STREP SCREEN A Positive Abnormal NEGATIVE [facility] Comment on above: Performed By: #### C BC #### [facility] [address] [place] [address] Sunshine Carlos SYMPTOMATIC COVID-19 ANTIGEN on 11-08-2020 EUA Statement SEE BELOW Normal [facility] [place] Comment on above: Result Comment: This test [...] Performed By: #### C IVELISSE CVDTB #### [facility] [address] [place] [address] Sunshinevinita Carlos SARS-CoV-2 (COVID-19) RNA TINA+probe Ql (Unsp spec) Negative Normal NEGATIVE [facility] Comment on above: Result Comment: CONF IRMATION BY PCR PENDING PER CDC GUIDELINES/ SYMPTOMATIC PATIENT. Performed By: #### C IVELISSE CVDTB #### [facility] [address] [place] [address] Sunshine Breanna URINE MICROSCOPIC ONLYon AMORPHOUS CRYSTALS FEW Normal The [place] Comment on above: Performed By: #### C BC #### [facility] [address] [place] [address] Sunshine Breanna BACTERIA SMALL Abnormal NONE SEEN [facility] Comment on above: Performed By: #### C BC #### [facility] [address] [place] [address] Sunshine Breanna Bacteria identified Cx Nom (U) INDICATED Normal [facility] Comment on above: Performed By: #### C BC #### [facility] [address] [place] [address] Sunshine Breanna CAST NONE SEEN Normal NONE SEEN [facility] [facility] Comment on above: Performed By: #### C BC #### [facility] [address] [place] [address] Sunshine Breanna Crystals LM Nom (Urine sed) SEEN Abnormal NONE SEEN [facility] Comment on above: Performed By: #### C BC #### [facility] [address] [place], [place] [id number] Sunshine Breanna Epithelial cells LM Ql (Urine sed) MODERATE Abnormal NONE SEEN /RARE [facility] Comment on above: Performed By: #### C BC #### [facility] [address] [place] [address] Sunshine Breanna MUCOUS MODERATE Abnormal NONE SEEN [facility] Comment on above: Performed By: #### C BC #### [facility] [address] [address] Sunshine Carlos RBC 2-5 Abnormal 0-2 [facility] Comment on above: Performed By: #### C BC #### [facility] [address] [place] [address] Sunshine Carlos WBC 5-10 Abnormal NONE SEEN [facility] Comment on above: Performed By: #### C BC #### [facility] [address] [place], [place] [id number] Sunshine Carlos US SINGLE QUAD RT UPPERon [...] EDMUNDO GUZMAN Date: 2020-08-19 15:23 Normal [facility] AMYLASEon 08-17-2020 Amylase [Catalytic activity/Vol] 49 U/L Normal 31-110 [facility] Comment on above: Performed By: #### C BC #### [facility] [address] [place] [address] Sunshine Carlos CBC AUTO DIFFon 08-17-2020 BASO # 0.0 103/ul Normal 0.0-0.1 [facility] Comment on above: Performed By: #### C BC #### [facility] [address] [id number] Sunshine Breanna Basophils/100 WBC (Bld) 0.6 % Normal 0.2-2.0 [facility] Comment on above: Performed By: #### C BC #### [facility] [address] [place], [place] [id number] Sunshine Breanna EO # 0.1 103/ul Normal 0.0-0.7 [facility] Comment on above: Performed By: #### C BC #### [facility] [address] [place], [place] [id number] Sunshine Breanna Eosinophils/100 WBC (Bld) 1.3 % Normal 0.9-7.0 [facility] Comment on above: Performed By: #### C BC #### [facility] [address] [place] [address] Sunshine Breanna Erythrocyte distribution width (RBC) [Ratio] 13.0 % Normal 11.0-15.0 [facility] Comment on above: Performed By: #### C BC #### [facility] [address] [place], [place] [id number] Sunshine Breanna Hematocrit (Bld) [Volume fraction] 39.1 % Normal 36.0-48.0 [facility] Comment on above: Performed By: #### C BC #### [facility] [address] [place], [place] [id number] Sunshine Breanna Hemoglobin (Bld) [Mass/Vol] 13.2 g/dL Normal 12.0-16.0 [facility] Comment on above: Performed By: #### C BC #### [facility] [address] [place] [address] Sunshine Breanna IG # 0.01 10e3/ul Normal 0.00-0.03 [facility] Comment on above: Performed By: #### C BC #### [facility] [address] [place] [address] Sunshine Breanna IG % 0.1 % Normal 0.0-0.5 [facility] Comment on above: Performed By: #### C BC #### [facility] [address] [place] [address] Sunshine Breanna LYMPH # 2.4 103/ul Normal 1.2-3.8 [facility] Comment on above: Performed By: #### C BC #### [facility] [address] [place], [place] [id number] Sunshine Breanna Lymphocytes/100 WBC (Bld) 33.5 % Normal 20.5-60.0 [facility] Comment on above: Performed By: #### C BC #### [facility] [address] [place] [address] Sunshine Carlos MANUAL DIFF REQ NO Normal [facility] Comment on above: Performed By: #### C BC #### [facility] [address] [place] [address] Sunshinevinita Carlos MCH (RBC) [Entitic mass] 30.6 pg Normal 26.7-34.0 [facility] Comment on above: Performed By: #### C BC #### [facility] [address] [place] [address] Sunshinevinita Carlos MCHC (RBC) [Mass/Vol] 33.8 g/dL Normal 29.9-35.2 [facility] Comment on above: Performed By: #### C BC #### [facility] [address] [place] [address] Sunshinevinita Carlos MCV (RBC) [Entitic vol] 90.7 fL Normal 81.0-99.0 [facility] Comment on above: Performed By: #### C BC #### [facility] [address] [place] [address] Sunshine Breanna MONO # 0.3 103/ul Normal 0.3-0.8 [facility] Comment on above: Performed By: #### C BC #### [facility] [address] [place] [address] Sunshine Breanna Monocytes/100 WBC (Bld) 4.1 % Normal 1.7-12.0 [facility] Comment on above: Performed By: #### C BC #### [facility] [address] [place] [address] Sunshine Breanna NEUT # 4.2 103/ul Normal 1.4-6.5 [facility] Comment on above: Performed By: #### C BC #### [facility] [address] [place] [address] Sunshine Carlos Neutrophils/100 WBC (Bld) 60.4 % Normal 43.0-75.0 [facility] Comment on above: Performed By: #### C BC #### [facility] [address] [place] [address] Sunshine Carlos Platelet mean volume (Bld) [Entitic vol] 10.7 fL Normal 9.5-13.5 [facility] Comment on above: Performed By: #### C BC #### [facility] [address] [place] [address] Sunshine Carlos PLT 321 103/ul Normal 150-450 [facility] Comment on above: Performed By: #### C BC #### [facility] [address] [place] [address] Sunshine Carlos RBC 4.31 106/ul Normal 4.20-5.40 [facility] Comment on above: Performed By: #### C BC #### [facility] [address] [place] [address] Sunshine Carlos WBC 7.0 103/ul Normal 4.0-11.0 [facility] Comment on above: Performed By: #### C BC #### [facility] [address] [place] [address] Sunshine Carlos LIPASEon 08-17-2020 Lipase [Catalytic activity/Vol] 97.0 U/L Normal 23.0-300.0 [facility] Comment on above: Performed By: #### T CANDE, CMP, LIPA, JANINE #### [facility] [address] [place] [address] Sunshine Carlos PROF 14(COMP METB)on 021 Albumin [Mass/Vol] 3.5 g/dL Normal 3.5-5.0 [facility] Comment on above: Performed By: #### T CANDE, CMP, LIPA, JANINE #### [facility] [address] [place] [address] Sunshine Breanna Albumin/Globulin [Mass ratio] 0.8 {ratio} Normal [facility] Comment on above: Performed By: #### T CANDE, CMP, LIPA, JANINE #### [facility] [address] [address] Sunshine Breanna ALP [Catalytic activity/Vol] 64 U/L Normal 38-126 [facility] Comment on above: Performed By: #### T CANDE, CMP, LIPA, JANINE #### [facility] [address] [place] [address] Sunshine Breanna ALT [Catalytic activity/Vol] 12 U/L Normal 9-52 [facility] Comment on above: Performed By: #### T CANDE, CMP, LIPA, JANINE #### [facility] [address] [place] [address] Sunshine Breanna Anion gap [Moles/Vol] 14.9 mmol/L Normal [facility] Comment on above: Performed By: #### T CANDE, CMP, LIPA, JANINE #### [facility] [address] [place] [address] Sunshine Breanna AST [Catalytic activity/Vol] 9 U/L Critically low 14-36 [facility] Comment on above: Performed By: #### T CANDE, CMP, LIPA, JANINE #### [facility] [address] [place] [address] Sunshine Breanna Bilirubin [Mass/Vol] 0.2 mg/dL Normal 0.2-1.3 [facility] Comment on above: Performed By: #### T CANDE, CMP, LIPA, JANINE #### [facility] [address] [place] [address] Sunshine Breanna Calcium [Mass/Vol] 8.9 mg/dL Normal 8.4-10.2 [facility] Comment on above: Performed By: #### T CANDE, CMP, LIPA, JANINE #### [facility] [address] [address] Sunshine Breanna Chloride [Moles/Vol] 108 mmol/L Critically high 98-107 [facility] Comment on above: Performed By: #### T CANDE, CMP, LIPA, JANINE #### [facility] [address] [address] Sunshine Breanna CO2 [Moles/Vol] 23.8 mmol/L Normal 22.0-30.0 [facility] Comment on above: Performed By: #### T CANDE, CMP, LIPA, JANINE #### [facility] [address] [address] Sunshine Breanna Creatinine [Mass/Vol] 0.81 mg/dL Normal 0.52-1.04 [facility] Comment on above: Performed By: #### T CANDE, CMP, LIPA, JANINE #### [facility] [address] [address] Sunshine Breanna EGFR-AF MEXICAN >60 Normal >=60 [facility] Comment on above: Performed By: #### T CANDE, CMP, LIPA, JANINE #### [facility] [address] [address] Sunshine Breanna EGFR-NON AF MEXICAN >60 Normal >=60 [facility] Comment on above: Performed By: #### T CANDE, CMP, LIPA, JANINE #### [facility] [address] [address] Sunshine Breanna Globulin (S) [Mass/Vol] 4.4 g/dL Normal [facility] Comment on above: Performed By: #### T CANDE, CMP, LIPA, JANINE #### [facility] [address] [address] Sunshine Breanna Glucose [Mass/Vol] 92 mg/dL Normal 74-106 [facility] Comment on above: Performed By: #### T CANDE, CMP, LIPA, JANINE #### [facility] [address] [address] Sunshine Breanna Potassium [Moles/Vol] 3.7 mmol/L Normal 3.4-5.0 [facility] Comment on above: Performed By: #### T CANDE, CMP, LIPA, JANINE #### [facility] [address] [address] Sunshine Breanna Protein [Mass/Vol] 7.9 g/dL Normal 6.1-8.2 [facility] Comment on above: Performed By: #### T CANDE, CMP, LIPA, JANINE #### [facility] [address] [place] [address] Sunshine Breanna Sodium [Moles/Vol] 143 mmol/L Normal 137-145 [facility] Comment on above: Performed By: #### T CANDE, CMP, LIPA, JANINE #### [facility] [address] [place] [address] Sunshine Breanna Urea nitrogen [Mass/Vol] 14.0 mg/dL Normal 7.0-17.0 [facility] Comment on above: Performed By: #### T CANDE, CMP, LIPA, JANINE #### [facility] [address] [place] [address] Sunshine Breanna Urea nitrogen/Creatinine [Mass ratio] 17.3 mg/mg Normal [facility] Comment on above: Performed By: #### T CANDE, CMP, LIPA, JANINE #### [facility] [address] [place] [address] Sunshine Breanna PREG QUANT HCGon 06-02-2020 HCG QUANT 14 mIU/mL Normal [facility] Comment on above: Performed By: #### C IVELISSE, CVDTB #### [facility] [address] [place] [address] Sunshine Breanna HCG RANGE SEE BELOW Normal [facility] Comment on above: Result Comment: 5-50 0-1 WEEK 40-300 1-2 WEEKS 100-1,000 2-3 WEEKS 500-6,000 3-4 WEEKS 5,000-200,000 1-2 MONTHS 10,000-100,000 2-3 MONTHS 3,000-50,000 2ND TRIMESTER 1,000-50,000 3RD TRIMESTER Performed By: #### C JAYMIES, CVDTBH #### [facility] [address] [place] [address] Sunshine Breanna PREG QUANT HCGon 05-20-2020 HCG QUANT 13 mIU/mL Normal [facility] Comment on above: Performed By: #### C BC #### [facility] [address] [place] [address] Sunshine Breanna HCG RANGE SEE BELOW Normal [facility] Comment on above: Result Comment: 50 0-1 WEEK 40-300 1-2 WEEKS 100-1,000 2-3 WEEKS 500-6,000 3-4 WEEKS 5,000-200,000 1-2 MONTHS 10,000-100,000 2-3 MONTHS 3,000-50,000 2ND TRIMESTER 1,000-50,000 3RD TRIMESTER Performed By: #### C BC #### [facility] [address] [place] [address] Sunshine Breanna PREG QUANT HCGon 05-06-2020 HCG QUANT 20 mIU/mL Normal [facility] Comment on above: Performed By: #### P REGQNT #### [facility] [address] [place] [address] Sunshine Breanna HCG RANGE SEE BELOW Normal [facility] Comment on above: Result Comment: 50 0-1 WEEK 40-300 1-2 WEEKS 100-1,000 2-3 WEEKS 500-6,000 3-4 WEEKS 5,000-200,000 1-2 MONTHS 10,000-100,000 2-3 MONTHS 3,000-50,000 2ND TRIMESTER 1,000-50,000 3RD TRIMESTER Performed By: #### P REGQNT #### [facility] [address] [place] [address] Sunshine Breanna PREG QUANT HCGon 04-29-2020 HCG QUANT 21 mIU/mL Normal [facility] Comment on above: Performed By: #### P REGQNT #### [facility] [address] [place] [address] Sunshine Breanna HCG RANGE SEE BELOW Normal [facility] Comment on above: Result Comment: 550 0-1 WEEK 40-300 1-2 WEEKS 100-1,000 2-3 WEEKS 500-6,000 3-4 WEEKS 5,000-200,000 1-2 MONTHS 10,000-100,000 2-3 MONTHS 3,000-50,000 2ND TRIMESTER 1,000-50,000 3RD TRIMESTER Performed By: #### P REGQNT #### [facility] [address] [place] [address] Sunshine Carlos ABO AND RH TYPEon 04-22-2020 ABO and Rh group Nom (Bld) ABO Rh Typing O Rh Positive Normal [facility] Comment on above: Performed By: #### C BC #### [facility] [address] [place], [place] [address] Sunshine Carlos PREG QUANT HCGon 04-22-2020 HCG QUANT 37 mIU/mL Normal [facility] Comment on above: Performed By: #### P REGQNT #### [facility] [address] [id number] Sunshine Carlos HCG RANGE SEE BELOW Normal [facility] Comment on above: Result Comment: 5-50 0-1 WEEK 40-300 1-2 WEEKS 100-1,000 2-3 WEEKS 500-6,000 3-4 WEEKS 5,000-200,000 1-2 MONTHS 10,000-100,000 2-3 MONTHS 3,000-50,000 2ND TRIMESTER 1,000-50,000 3RD TRIMESTER Performed By: #### P REGQNT #### [facility] [address] [id number] Sunshine Carlos ED Note-Physicianon 10-16-19 20 ED Note-Physician [id number]#[id number]:[id number] Normal [facility] and gonorrhea: Amp, Ur ine -UHEon 01-12-2017 Chlam and gonorrhea: Amp, Urine -UHE Negative Negative THIS TEST WAS PERFORMED USING A REAL TIME PCR ASSAY. Normal [facility] Comment on above: Performed By: #### R NABU ####[address] [address] Beta HCG (Qual), Urine - MCH on 01-09-2017 HCG.beta subunit ( test) Ql (U) Positive Abnormal Negative [facility] Comment on above: Performed By: #### H CGUMD, UR1MD ####[place] [address] [place], [place] [address] Beta HCG, quant, S - MCHon 1 Beta HCG, quant, S - MCH 65529.0 mIU/mL Normal [facility] Comment on above: Result Comment: FEMA PASCUAL GESTATIONAL AGERESULTS <10 ARE CONSIDERED NEGATIVE4 WEEKS 4700-193083 mIU/mL5 WEEKS 3660-292451 mIU/mL6 WEEKS 06387-091201 mIU/mL7 WEEKS 81206-770311 mIU/mL8 WEEKS 84047-555768 mIU/mL9 WEEKS 47644-218039 mIU/mL10 WEEKS 66188-191104 mIU/mL11 WEEKS 6480-326042 mIU/ml12 WEEKS 6740-829707 mIU/mL13-27 WEEKS 8200-735682 mIU/mL28-40 WEEKS 2320-81922 mIU/mL Performed By: #### C BCMD, PTPTMD, TYSCMD, QHCGMD ####[address] [place], [place] [address] CBC, ELECTRONIC DIFF, PLATEL ET - MCHon 01-09-2017 Absolute Basophil 0.0 K/uL Normal 0.0-0.23 [facility] Comment on above: Performed By: #### C BCMD, PTPTMD, TYSCMD, QHCGMD ####[address] [place], [place] [address] Absolute Grans 5.9 K/uL Normal 1.8-7.7 [facility] Comment on above: Performed By: #### C BCMD, PTPTMD, TYSCMD, QHCGMD ####[address] [place], [place] [address] Basophils/100 WBC Auto (Bld) 0.5 % Normal 0-2 [facility] Comment on above: Performed By: #### C BCMD, PTPTMD, TYSCMD, QHCGMD ####[address] [place], [place] [address] Eosinophils 0.1 10*3/uL Normal 0.0-0.7 [facility] Comment on above: Performed By: #### C BCMD, PTPTMD, TYSCMD, QHCGMD ####[address] [place], [place] [address] Eosinophils/100 leukocytes 1.0 % Normal 0-5.0 [facility] Comment on above: Performed By: #### C BCMD, PTPTMD, TYSCMD, QHCGMD ####[facility] [place], [place] [address] Erythrocytes (RBC) 13.8 % Normal 11.5-14.5 [facility] Comment on above: Performed By: #### C BCMD, PTPTMD, TYSCMD, QHCGMD ####[address] [place], [place] [address] Grans Electronic 64.6 % Normal 50-70 [facility] Comment on above: Performed By: #### C BCMD, PTPTMD, TYSCMD, QHCGMD ####[address] [place], [place] [address] Hematocrit (HCT) 34.5 % Low 35.0-45.0 [facility] Comment on above: Performed By: #### C BCMD, PTPTMD, TYSCMD, QHCGMD ####[address] [place], [place] [address] Hemoglobin mass conc (Bld) 31.0 pg Normal 27.0-34.0 [facility] Comment on above: Performed By: #### C BCMD, PTPTMD, TYSCMD, QHCGMD ####[address] [address] Hemoglobin mass conc (Bld) 11.7 g/dL Normal 11.7-15.5 [facility] Comment on above: Performed By: #### C BCMD, PTPTMD, TYSCMD, QHCGMD ####[address] [address] Lymphocytes 2.6 10*3/uL Normal 1.0-4.8 [facility] Comment on above: Performed By: #### C BCMD, PTPTMD, TYSCMD, QHCGMD ####[address] [address] Lymphocytes/100 leukocytes 28.7 % Normal 22.0-44.0 [facility] Comment on above: Performed By: #### C BCMD, PTPTMD, TYSCMD, QHCGMD ####[address] [address] MCH 3.78 M/uL Low 3.8-5.1 [facility] Comment on above: Performed By: #### C BCMD, PTPTMD, TYSCMD, QHCGMD ####[place] [address] [place], [place] [address] MCH 9.1 K/uL Normal 4.5-11.0 [facility] Comment on above: Performed By: #### C BCMD, PTPTMD, TYSCMD, QHCGMD ####[facility] [place], [place] [address] MCV 91.0 fL Normal 81.0-100.0 [facility] Comment on above: Performed By: #### C BCMD, PTPTMD, TYSCMD, QHCGMD ####[facility] [place], [place] [address] Monocytes 0.5 10*3/uL Normal 0.0-0.9 [facility] Comment on above: Performed By: #### C BCMD, PTPTMD, TYSCMD, QHCGMD ####[address] [place], [place] [address] Monocytes/100 leukocytes 5.2 % Normal 0-7.0 [facility] Comment on above: Performed By: #### C BCMD, PTPTMD, TYSCMD, QHCGMD ####[facility] [place], [place] [address] Platelet mean volume (PMV) 8.3 fL Normal 7.5-11.2 [facility] Comment on above: Performed By: #### C BCMD, PTPTMD, TYSCMD, QHCGMD ####[facility] [place], [place] [address] Platelets 281 10*3/uL Normal 150-400 [facility] Comment on above: Performed By: #### C BCMD, PTPTMD, TYSCMD, QHCGMD ####[place] [address] [place], [place] [address] ED PROVIDERon 01-09-2017 [facility] CAC NOTES Normal [facility] NOTES Normal [facility] OSUHIMCACCODINGOPEDon 2016 [facility] CAC Coding OP/ED Report Normal [facility] OSUHIMCACENCSUMon 01-09-2017 [facility] CAC Encounter Summary Report Normal [facility] PT*PTT - MCHon 01-09-2017 aPTT 33 s Normal 24.6-35.9 [facility] Comment on above: Performed By: #### C BCMD, PTPTMD, TYSCMD, QHCGMD ####[place] [address] [place], [place] [address] INR Coag RelTime (Bld) 1.1 {INR} Normal 0.87-1.15 [facility] Comment on above: Performed By: #### C BCMD, PTPTMD, TYSCMD, QHCGMD ####[place] [address] [place], [place] [address] MCH 13.3 sec Normal 11.5-14.3 [facility] Comment on above: Performed By: #### C BCMD, PTPTMD, TYSCMD, QHCGMD ####[place] [address] [place], [place] [address] [facility] ABO/RH(D) - [facility]: O POSITIVE ANTIBODY SCREEN - MCH: Negative Normal [facility] Comment on above: Performed By: #### C BCMD, PTPTMD, TYSCMD, QHCGMD ####[place] [address] [place], [place] [address] Urinalysis reflex to Cult - [facility] 01-09-2017 COMMENT URINE None Normal [facility] Comment on above: Performed By: #### H CGUMD, UR1MD ####[place] [address] [place], [place] [address] Squamous Epithelial 2+ /HPF [facility] Comment on above: Performed By: #### H CGUMD, UR1MD ####[place] [address] [place], [place] [address] Urine, bacteria in sediment Absent Normal Absent [facility] Comment on above: Performed By: #### H CGUMD, UR1MD ####[place] [address] [place], [place] [address] Urine, erythrocytes in sediment by area 0-2 Normal 0-2 [facility] Comment on above: Performed By: #### H CGUMD, UR1MD ####[place] [address] [place], [place] [address] Urine, leukocytes in sedmiment 0-5 Normal 0-5 [facility] Comment on above: Performed By: #### H CGUMD, UR1MD ####[place] [address] [place], [place] [address] Bilirubin Urine Negative Normal Negative [facility] Comment on above: Performed By: #### H CGUMD, UR1MD ####[address] [address] [place], [place] [address] Blood Urine Moderate Abnormal Negative [facility] Comment on above: Performed By: #### H CGUMD, UR1MD ####[place] [address] [place], [place] [address] Nitrites Urine Negative Normal Negative [facility] Comment on above: Performed By: #### H CGUMD, UR1MD ####[place] [address] [place], [place] [address] Protein Urine Negative Normal Negative [facility] Comment on above: Performed By: #### H CGUMD, UR1MD ####[place] [id number] [place], [place] [address] Specific [facility] urine 1.020 Normal 1.001-1.035 [facility] Comment on above: Performed By: #### H CGUMD, UR1MD ####[place] [address] [place], [place] [address] Urine, appearance Clear Normal Clear [facility] Comment on above: Performed By: #### H CGUMD, UR1MD ####[place] [address] [place], [place] [address] Urine, color Yellow Normal YEL,DKYEL [facility] Comment on above: Performed By: #### H CGUMD, UR1MD ####[place] [address] [place], [place] [address] Urine, glucose presence Negative Normal Negative [facility] Comment on above: Performed By: #### H CGUMD, UR1MD ####[place] [address] [place], [place] [address] Urine, ketones presence Negative Normal Negative [facility] Comment on above: Performed By: #### H CGUMD, UR1MD ####[place] [address] [place], [place] [address] Urine, leukocyte esterase presence Negative Normal Negative [facility] Comment on above: Performed By: #### H CGUMD, UR1MD ####[place] [address] [place], [place] [address] Urine, pH 6.0 [pH] Normal 5.0-7.0 [facility] Comment on above: Performed By: #### H CGUMD, UR1MD ####[place] [address] [place], [place] [address] Urobilinogen urine 0.2 EU/dL Normal <2.0 [facility] Comment on above: Performed By: #### H CGUMD, UR1MD ####[place] [address] [place], [place] [address] Vital Signs Date Time Vital Sign Value Performing Clinician Facility 12-18-2023 15:06-0400 Body mass index (BMI) [Ratio] 35.54 kg/m2 [employer] Work Phone: [facility] 12-18-2023 15:06-0400 Body weight 106.03 kg [employer] Work Phone: [facility] 12-18-2023 15:06-0400 Diastolic blood pressure 68 mm[Hg] Dmitriy Rodo [employer] Work Phone: [facility] 12-18-2023 15:06-0400 Systolic blood pressure 108 mm[Hg] Dmitriy Rodo [employer] Work Phone: [facility] 03-29-2021 11:15-0500 Body height 172.72 cm Arminda Holt Other [employer] Other 03-29-2021 11:15-0500 Body mass index (BMI) [Ratio] 36.49 kg/m2 Arminda Holt Other [employer] Other 03-29-2021 11:15-0500 Body temperature 97 [degF] Arminda Holt Other [employer] Other 03-29-2021 11:15-0500 Body weight 108.86 kg Arminda Holt Other [employer] Other 03-29-2021 11:150500 SaO2% (BldA) [Mass fraction] 99 % Arminda Holt Other [employer] Other Encounters Encounter Date Encounter Type Care Provider Facility Start: 12-19-2023 End: 12-19-2023 ambulatory [facility] Start: 12-18-2023 End: 12-18-2023 ambulatory [...] Not Available Start: 11-22-2023 End: 11-22-2023 ambulatory [facility] Start: 11-20-2023 End: 11-20-2023 ambulatory DMITRIY RODO Not Available Start: 10-25-2023 End: 10-25-2023 ambulatory DMITRIY [facility] [place] Start: 10-24-2023 End: 10-24-2023 ambulatory JANINE THOMAS Not Available Start: 09-24-2023 End: 09-24-2023 ambulatory DMITRIY RODO Not Available Start: 08-22-2023 End: 08-22-2023 ambulatory DMITRIY RODO Not Available Start: 07-26-2023 End: 07-26-2023 ambulatory DMITRIY RODO Not Available Start: 03-29-2021 End: 03-29-2021 ambulatory Arminda Holt Other [facility] [employer] Other Start: 03-29-2021 Office outpatient ne w [...] 01-09-2017 Emergency department patient visit SELF SELF [facility] Procedures Date Procedure Procedure Detail Performing Clinician Start: 12-18-2023 Urnls dip stick/tabl et rgnt non-auto w/o micrscp Dmitriy Koehler DO Work Phone: Plan of Treatment Date Care Activity Detail Author Start: 01-01-2024 End: 01-01-2024 Patient encounter procedure 01/01/2024 1:00 PM EDT Routine [facility] [address] [place] [id number] Janine Guzman PA [address] [place] [address] [facility] Start: 12-18-2023 End: 12-17-2024 US biophysical profile w non stress test US biophysical profile w non stress test Imaging Routine H/O placenta previa Expected: 12/18/2023 (Approximate), Expires: 12/17/2024 [facility] Work Phone: Comment on above: Expected: 12/18/2023 (Approximate), Expires: 12/17/2024 Payers Date Payer Category Payer Unknown BCBS BCBS [id number] [id number] 2022-Present [phone] [address] [place] [address] [id number] 2022 Unknown [id number] 2017 Unknown [id number] 1989 Unknown [id number] 2.16.840.1.951226.3.579.2. 593 1989 Unknown [id number] 2.16.840.1.393361.3.579.2. 593 1989 Unknown [id number] 2.16.840.1.385486.3.579.2. 593 1989 Unknown [id number] 2.16.840.1.501614.3.579.2. 593 1989 Unknown [id number] 2.16.840.1.148655.3.579.2. 593 1989 Unknown [id number] 2.16.840.1.332344.3.579.2. 593 1989 Unknown [id number] 2.16.840.1.673296.3.579.2. 593 1989 Unknown [id number] 2.16.840.1.927032.3.579.2. 593 1989 Unknown [id number] 2.16.840.1.701284.3.579.2. 1286 1989 Unknown [id number] 2.16.840.1.157135.3.579.2. 1286 1989 Unknown [id number] 2.16.840.1.644331.3.579.2. 1286 1989 Unknown [id number] 2.16.840.1.601748.3.579.2. 1259 1989 Unknown [id number] 2.16.840.1.064420.3.579.2. 9 1989 Unknown [id number] 2.16.840.1.579338.3.579.2. 9 1989 Unknown [id number] 2.16.840.1.402491.3.579.2. 1258 1989 Unknown [id number] 2.16.840.1.781759.3.579.2. 1258 1989 Unknown [id number] 2.16.840.1.421183.3.579.2. 1258 1989 Unknown [id number] 2.16.840.1.280446.3.579.2. 1258 1989 Unknown [id number] 2.16.840.1.441252.3.579.2. 1286 1959 Private Health Insurance [id number] Self-pay [id number] Unknown [id number] 2.16.840.1.923769.19 Social History Date Type Detail Facility Start: 08-22-2023 Sex Assigned At [employer] Other Start: 08-22-2023 End: 12-18-2023 Tobacco smoking status DEIS Ex-smoker [facility] Start: 08-18-2015 End: 09-19-2014 History of tobacco use Current smoker [facility] Start: 08-18-2015 End: 09-19-2014 History of tobacco use Cigarette Smoker [facility] Start: 08-22-2023 End: 12-18-2023 Cigarettes smoked current (pack per day) - Reported 0.5 [facility] Start: 08-22-2023 End: 12-18-2023 Tobacco use and exposure Smokeless tobacco non-user [facility] Start: 12-04-2023 End: 12-18-2023 Alcoholic beverage intake Ex-drinker (finding) [facility] Start: 05-30-2023 [facility] Start: 1990 Sex assigned at Not on file [facility] Start: 07-26-2023 Gender identity Identifies as [...] nursing note reviewed. Exam conducted with a malware analyst present. Vitals: Estimated body mass index is [...] Dmitriy Koehler DO documented in this encounter [facility] Evaluation note 03-29-2021 Note Date & [...] Patient care instructions given in writting by [facility] document. [employer] Other Evaluation note Note Date & Type [...] and content) DATE CREATED AUTHOR 09/11/2017 [facility] DATE CREATED AUTHOR AUTHOR'S ORGANIZ ATION 10/18/2019 [facility] DATE CREATED AUTHOR AUTHOR'S ORGANIZ ATION 11/24/2020 [facility] DATE CREATED AUTHOR AUTHOR'S ORGANIZ ATION 04/08/2021 [facility] DATE CREATED AUTHOR AUTHOR'S ORGANIZ ATION 04/18/2021 [facility] DATE CREATED AUTHOR AUTHOR'S ORGANIZ ATION 06/24/2021 [facility] DATE CREATED AUTHOR AUTHOR'S ORGANIZ ATION 11/24/2023 [facility] DATE CREATED AUTHOR AUTHOR'S ORGANIZ ATION 12/20/2023 [facility] DATE CREATED AUTHOR AUTHOR'S ORGANIZ ATION 12/21/2023 [facility] REASON FOR VISIT (unrecogniz ed [...] BE BASED ON THE PRIMARY CLINICAL RECORDS. [facility] [employer] [facility]. provides no warranty or guarantee of the accuracy or completeness of information in this document.
[2024-01-03 13:37] VITALS: BP 107/72; PULSE 100
== END 2024-01-03 14:18 | disposition home or self-care (01) ==
LOC: US 06:55 → FBC 13:05
PROVIDERS: Visit Provider Obstetrics & Gynecology
DX: Z87.59 Personal history of other complications of pregnancy, childbirth and the puerperium (principal); Z3A.33 33 weeks gestation of pregnancy
CPT/HCPCS: 76818

== ENCOUNTER 2024-01-07 06:56 | Outpatient (OUT) | payer BC, SELFPAY ==
--- OUTSIDE RECORDS SUMMARY | 2024-01-07 07:00 | XMS_ITS | CCD ---
Author Organization [facility] Care Team Providers Care Loss Prevention Specialist Name Role Phone SELF, SELF Unavailable Unavailable MIGUEL GAMBOA Unavailable Unavailable EZEQUIEL, DR CUEVA Consulting Unavailable EZEQUIEL, DR CUEVA Admitting Unavailable EZEQUIEL, DR CUEVA Attending Unavailable REQUEST, NONE LISTED Primary Care Unavaila Edmundo Archer Consulting Unavailable JUNIOR, HERBERT Consulting Unavailable JUNIOR, HERBERT Admitting Unavailable REQUEST, NONE LISTED Primary Care Unavaila HERBERT Holman Attending Unavailable JUNIOR, HERBERT Consulting Unavailable JUNIOR, HERBERT Admitting Unavailable REQUEST, NONE LISTED Primary Care Unavaila HERBERT Holman Attending Unavailable JUNIOR, HERBERT Consulting Unavailable REQUEST, NONE LISTED Primary Care Unavaila ble JUNIOR, HERBERT Admitting Unavailable JUNIOR, HERBERT Attending Unavailable REQUEST, NONE LISTED Primary Care Unavaila ble JUNIOR, HERBERT Consulting Unavailable JUNIOR, HERBERT Admitting Unavailable JUNIOR, HERBERT Attending Unavailable EZEQUIEL, DR CUEVA Admitting Unavailable EZEQUIEL, DR CUEVA Attending Unavailable EZEQUIEL, DR CUEVA Consulting Unavailable REQUEST, NONE LISTED Primary Care Unavaila ble LISA BERGMAN Admitting Unavailable REQUEST, NONE LISTED Primary Care Unavaila LISA Cordoba Attending Unavailable PACHECO, LISA Consulting Unavailable JUNIOR, HERBERT Consulting Unavailable REQUEST, NONE LISTED Primary Care Unavaila ble JUNIOR, HERBERT Admitting Unavailable JUNIOR, HERBERT Attending Unavailable Arminda Holt Unavailable MACY BABCOCK Attending Unavailable FLORO, LYNNETTE Referring Unavailable FLORO, LYNNETTE Primary Care Unavailable DMITRIY KOEHLER Referring Unavailable FLORO, LYNNETTE Primary Care Unavailable DMITRIY KOEHLER Referring Unavailable FLORO, LYNNETTE Primary Care Unavailable Unavailable Primary Care Provider Unavailabl e FLORO, LYNNETTE Referring Unavailable FLORO, LYNNETTE Primary Care Unavailable DMITRIY KOEHLER Attending Unavailable DMITRIY KOEHLER Attending Unavailable JANINE GUZMAN Attending Unavailable DMITRIY KOEHLER Attending Unavailable JANINE GUZMAN Attending Unavailable DMITRIY KOEHLER Attending Unavailable JANINE GUZMAN Attending Unavailable Medications Current Medications Medication Drug Class(es) Dates Sig (Normalized) Sig (Original) [id number] 200 actuat albuterol 0.09 mg/actuat metered dose inhaler (1 source) beta2-Adrenergic Agonist Start: 03-29-2021 take 2 puff(s) by inhalation every four hours as needed Albuterol Sulfate HFA 108 (90 Base) MCG/ACT 2 puffs as needed Inhalation every 4 hrs Mar, Active Iron Carbonyl-Vitamin C-FOS (CHEWABLE IRON PO) (6 sources) Iron Carbonyl-Vitamin C-FOS (CHEWABLE IRON PO) Take by mouth Active omeprazole 20 mg delayed release oral capsule (6 sources) Proton Pump Inhibitor Start: 07-26-2023 End: 07-25-2024 take 1 capsule by mouth before mealtime omeprazole (PriLOSEC) [address] capsule Indications: Heartburn Take 1 capsule (20 mg) by mouth in the morning. Take before meals. Do not crush or chew.. 30 capsule 11 07/26/2023 07/25/2024 Active ondansetron 4 mg disintegrating oral tablet (6 sources) Serotonin-3 Receptor Antagonist Start: 09-07-2023 take 1 tablet by mouth every six hours as needed for nausea ondansetron ODT (Zofran-ODT) 4 MG disintegrating tablet DISSOLVE 1 TABLET IN MOUTH EVERY 6 HOURS NEEDED FOR NAUSEA OR FOR VOMITING 09/07/2023 Active Pre-Marlene (1 source) Pre-Marlene Active MV-Min-Fe Fum-FA-DHA ( 1 PO) (6 sources) MV-Min- Fe Fum-FA-DHA ( 1 PO) Take 1 each by mouth Daily Active valACYclovir 500 mg oral tablet (6 sources) Herpesvirus Nucleoside Analog DNA Polymerase Inhibitor, [...] 10-25-2023 Episodic Other and delivery including normal (8 sources) Encounter for test, result positive; Translations: [...] , childbirth and the puerperium] 12-18-2023 Episodic Residual codes; unclassified (2 sources) Gestation period, 32 weeks; Translations: [32 weeks gestation of ] 01-01-2024 Episodic Screening and history of mental health [...] 03-29-2021 Episodic Other aftercare (1 source) Other intermission coordinator (current) drug therapy; Translations: [OTH SENIOR CARE CURRENT DRUG THERAPY] Onset: 08-19-2020 Episodic Residual [...] Range Facility Urinalysis macro (dipstick) panel (U)on 01-01-2024 Bilirubin, UA Negative Negative - 4(70) +++ mg/dL [facility] Blood, UA Negative Negative - 50 Wili/mcL [facility] Clarity, UA Clear [facility] Color, UA Yellow [facility] Glucose, UA Negative Negative - 1999(110) ++++ mg/dL [facility] Interpretation and review of laboratory results Abnormal [facility] Ketones, UA Positive Negative - 160(16) ++++ mg/dL [facility] Comment on above: trace Leukocytes, UA Negative Negative - 500+++ Yajaira/mcL [facility] Nitrite, UA Negative Negative - Positive [facility] pH, UA 7 5 - 9 [facility] Protein, UA Positive Negative - 1999(20) ++++ mg/dL [facility] Comment on above: 30 Spec Grav, UA 1.025 1 - 1.03 [facility] Health care Urobilinogen, UA 0.2 0.2 - 12 mg/dL [facility] Urinal[facility] macro (dipstick) panel (U)on 12-18-2023 Bilirubin, UA Negative Negative - 4(70) +++ mg/dL [facility] Blood, UA Negative Negative - 50 Wili/mcL [facility] Clarity, UA Clear [facility] Color, UA Yellow [facility] Glucose, UA Negative Negative - 1999(110) ++++ mg/dL [facility] Interpretation and review of laboratory results Abnormal [facility] Ketones, UA Negative Negative - 160(16) ++++ mg/dL [facility] Leukocytes, UA Negative Negative - 500+++ Yajaira/mcL [facility] Nitrite, UA Negative Negative - Positive [facility] pH, UA 6.5 5 - 9 [facility] Protein, UA Trace Negative - 1999(20) ++++ mg/dL [facility] Spec Grav, UA 1.030 1 - 1.03 [facility] care Urobilinogen, UA 0.2 0.2 - 12 mg/dL [facility] Complete Blood Count Auto Di ffon 06-14-2021 Basophils (Bld) [#/Vol] 0.0 10*3/uL Normal 0.0-0.2 [facility] Comment on above: Result Comment: PERF ORMED BY: [facility] [address] [address] PATHOLOGIST [employer] STEPHANIE ROACH M.D. Performed By: #### C BC #### [address] Basophils/100 WBC (Bld) 0.6 % Normal . [facility] Comment on above: Performed By: #### C BC #### [address] Eosinophils (Bld) [#/Vol] 0.1 10*3/uL Normal 0.0-0.45 [facility] Comment on above: Performed By: #### C BC #### [address] Eosinophils/100 WBC (Bld) 1.7 % Normal . [facility] Comment on above: Performed By: #### C BC #### [address] Erythrocyte distribution width (RBC) [Ratio] 13.5 % Normal 11.9-15.3 [facility] Comment on above: Performed By: #### C BC #### [address] Hematocrit (Bld) [Volume fraction] 30.6 % Low 34.0-46.4 [facility] Comment on above: Performed By: #### C BC #### [address] Hemoglobin (Bld) [Mass/Vol] 10.2 g/dL Low 11.8-15.4 [facility] Comment on above: Performed By: #### C BC #### [address] Lymphocytes (Bld) [#/Vol] 2.1 10*3/uL Normal 1.00-4.8 [facility] Comment on above: Performed By: #### C BC #### [address] Lymphocytes/100 WBC (Bld) 24.1 % Normal . [facility] Comment on above: Performed By: #### C BC #### [address] MCH (RBC) [Entitic mass] 31.4 pg Normal 24.7-34.3 [facility] Comment on above: Performed By: #### C BC #### [facility] [address] MCV (RBC) [Entitic vol] 94.0 fL Normal 80-100 [facility] Comment on above: Performed By: #### C BC #### [facility] [address] Mean Corpuscular HGB Conc 33.4 g/dL Normal 32.0-35.0 [facility] Comment on above: Performed By: #### C BC #### [facility] [address] [place] [address] [place] Monocytes (Bld) [#/Vol] 0.4 10*3/uL Normal 0.0-0.8 [facility] Comment on above: Performed By: #### C BC #### [facility] [address] [place] [address] [place] Monocytes/100 WBC (Bld) 4.9 % Normal . [facility] Comment on above: Performed By: #### C BC #### [facility] [address] [place] [address] [place] Neutrophils (Bld) [#/Vol] 5.9 10*3/uL Normal 1.8-7.7 [facility] Comment on above: Performed By: #### C BC #### [facility] [address] [place] [address] [place] Neutrophils/100 WBC (Bld) 68.7 % Normal . [facility] Comment on above: Performed By: #### C BC #### [facility] [address] [place] [address] [place] Nucleated RBC/100 WBC (Bld) [Ratio] 0.1 % Normal 0-0.5 [facility] Comment on above: Performed By: #### C BC #### [facility] [address] Platelet mean volume (Bld) [Entitic vol] 8.0 fL Normal 6.3-10.7 [facility] Comment on above: Performed By: #### C BC #### [facility] [address] [place] [address] [place] Platelets (Bld) [#/Vol] 298 10*3/uL Normal 150-450 [facility] Comment on above: Performed By: #### C BC #### [facility] [address] RBC (Bld) [#/Vol] 3.25 10*6/uL Low 3.60-5.00 [facility] Comment on above: Performed By: #### C BC #### [facility] [address] WBC (Bld) [#/Vol] 8.6 10*3/uL Normal 4.5-11.0 [facility] Comment on above: Performed By: #### C BC #### [address] Dipstick and Microscopicon 0 06-14-2021 Appearance (U) Clear Normal Clear [facility] Comment on above: Order Comment: Name Collection Type:: Clean-Voided Midstream Performed By: #### A DDONUAPLUS OBUDS #### [address] Bacteria,Urine None Seen Normal None Seen [facility] Comment on above: Order Comment: Name Collection Type:: Clean-Voided Midstream Performed By: #### A DDONUAPLUS OBUDS #### [place] [address] [place] Bilirubin,Urine Negative Normal Negative [facility] Comment on above: Order Comment: Name Collection Type:: Clean-Voided Midstream Performed By: #### A DDONUAPLUS OBUDS #### [address] Color (U) Yellow Normal Yellow [facility] Comment on above: Order Comment: Name Collection Type:: Clean-Voided Midstream Performed By: #### A DDONUAPLUS OBUDS #### [address] Glucose Ql (U) Normal Normal Normal [facility] Comment on above: Order Comment: Name Collection Type:: Clean-Voided Midstream Performed By: #### A DDSHENA OBUDS #### [place] [address] [place] Hyaline Casts,Urine 0-8 Normal 0-8 [facility] Comment on above: Order Comment: Name Collection Type:: Clean-Voided Midstream Result Comment: PERF ORMED BY: [place] [address] PATHOLOGIST [employer] STEPHANIE ROACH M.D. Performed By: #### A HARJIT OBUDS #### [address] Ketones Ql (U) Negative Normal Negative [facility] Comment on above: Order Comment: Name Collection Type:: Clean-Voided Midstream Performed By: #### A DDONCLINT OBUDS #### [address] Leukocyte esterase Test strip Ql (U) Negative Normal Negative [facility] Comment on above: Order Comment: Name Collection Type:: Clean-Voided Midstream Performed By: #### A DDONUAPLUS OBUDS #### [place] [address] [place] Nitrite,Urine Negative Normal Negative [facility] Comment on above: Order Comment: Name Collection Type:: Clean-Voided Midstream Performed By: #### A DDONUAPLUS OBUDS #### [place] [address] [place] Occult Blood,Urine 3+ High Negative [facility] Comment on above: Order Comment: Name Collection Type:: Clean-Voided Midstream Result Comment: PERF ORMED BY: [place] [address] PATHOLOGIST [employer] STEPHANIE ROACH M.D. Performed By: #### A HARJIT OBUDS #### [address] pH (U) 7.5 [pH] Normal 5.0-9.0 [facility] Comment on above: Order Comment: Name Collection Type:: Clean-Voided Midstream Performed By: #### A DDONUAPLUS, OBUDS #### [address] Protein,Urine Negative Normal Negative [facility] Comment on above: Order Comment: Name Collection Type:: Clean-Voided Midstream Performed By: #### A DDONUAPLUS, OBUDS #### [address] RBC,Urine 20-49 High 0-4 [facility] Comment on above: Order Comment: Name Collection Type:: Clean-Voided Midstream Performed By: #### A DDONUAPLUS, OBUDS #### [address] Specificy [place],Urine 1.009 Normal 1.001-1.030 [facility] Comment on above: Order Comment: Name Collection Type:: Clean-Voided Midstream Performed By: #### A DDONUAPLUS, OBUDS #### [address] Squamous Epithelial Cell,Urine 1-2 Normal 0-2 [facility] Comment on above: Order Comment: Name Collection Type:: Clean-Voided Midstream Performed By: #### A DDONUAPLUS, OBUDS #### [address] Urobilinogen,Urine Normal Normal Normal [facility] Comment on above: Order Comment: Name Collection Type:: Clean-Voided Midstream Performed By: #### A DDONUAPLUS, OBUDS #### [address] WBC,Urine None Seen Normal 0-4 [facility] Comment on above: Order Comment: Name Collection Type:: Clean-Voided Midstream Performed By: #### A DDONUAPLUS, OBUDS #### [address] [place] [address] [place] OB Urine Drug Screen (NO THC )on 06-14-2021 Amphetamine Screen,Urine Negative Normal Negative [facility] Comment on above: Performed By: #### A DDONUAPLUS, OBUDS #### [place] [address] [place] Barbiturate Screen,Urine Negative Normal Negative [facility] Comment on above: Performed By: #### A DDONUAPLUS, OBUDS #### [place] [address] [place] Benzodiazepines Screen,Urine Negative Normal Negative [facility] Comment on above: Performed By: #### A DDONUAPLUS, OBUDS #### [place] [address] [place] Cocaine Screen,Urine Negative Normal Negative [facility] Comment on above: Performed By: #### A DDONUAPLUS, OBUDS #### [place] [address] [place] Opiate Screen,Urine Negative Normal Negative [facility] Comment on above: Performed By: #### A DDONUAPLUS, OBUDS #### [address] Phencyclidine Screen, Urine Negative Normal Negative [facility] Comment on above: Result Comment: Thes e are unconfirmed results and should not be used for legal purposes. Drug Cut-Off Concentration: AMPH 1000 ng/mL NOLBERTO 200 ng/mL BIANCA 200 ng/mL COCM 300 ng/mL OP 300 ng/mL PCP 25 ng/mL PERFORMED BY: [place] [address] PATHOLOGIST [employer] STEPHANIE ROACH M.D. Performed By: #### A DDONUAPLUS, OBUDS #### [address] US OB 2nd/3rd Trimesteron OB 2nd/3rd [...] 4.6 cm (19 weeks, 6 days) Head Ddfdjawjzuoma31.3 cm (19 weeks, 0 days) Abdominal Fiprcobcirpvl25.6 cm (19 weeks, 0 days) Femur Length 3.1 cm (19 weeks, 3 days) PresentationBreech Weight (g) by Pjmxxrqtqk03.4%* These measurements result in an estimated date [...] by Ayo Jiménez on 04/18/2021 0921 Normal [facility] Harpooner Coding Summaryon 04-07-2021 Coding Summary HTMLBase 64 SlzovamvJMb7eCy+PG hlYWQ+UZ2SVWLcI98j eAFfzA3JZ1kAAG9COK JSSIPHDX4YPC0ebAZ1 NIvzX4DsmjBg VobkvMToYD99NCa0LE Y8yBchAMywyS8kxPIf M9m9YeOaRK01cP29OG sxSANhOlV6JiHhiukf bWFy P3lwQcUkuKRyZyt+PH RhYmxlIHdpZHRoPScx BYYuYbGlxOoaYU0oJf 9yZGVyLWNvbGxhcHNl OiBj v1cjJXBxWCzxWM7vkL qjD7EufIE7JAJtc1f3 Lv34rQD+UEBnBKU0bL ijWKjwp406TpYsq2ua IDM3 fBLdLYmbATM1U38ic7 H1ZQWaILFqCFM4pDF3 iO7bzHbwlrtnQ3ZraK QtEfE7JMU7oXGicA6g bGln dwqlfW6tTwc+Q09ESU 0BHHWLEE3RHpr0D6Hi PjwvdHI+MH27CSStUA 81jLQwaRFft5hwrHo7 JzEw WEQcMPW3tXtnSDqpw0 PkKFAzY03azPYbz1L8 IGNvbGxhcHNlOyBlbX H8tY1vVXitvkhsg4oc dzsn Vvdli0stdk38dI39A2 4kWHpjNOSkUPT4YERg KICrjPsuls1myE9rFb 8+YOgbz2afy1opgEq9 IjIw CUJqleCodVggCRN2z4 IcWj75J3FoxPfrh5Wm Qjv8gk06qKWry1B3dV H0KGjzYJTrxP0tHVfl ZnQ6 BVMfVxNqmP75hKOdNF hoHf0wnSkazWhbUI8r IPTtciexCUOgjZ9cSJ NrrEWbrUxcPU4mKWQe bjtm w073VvQwSDE4GYEllY OiZ7JvzS2lWhMaHRGb GZChA9BejTHiKHcyK6 37OXgpSfA2VUGrddOx Y2Fs VLEoyIcpJmV8r0I2Mv 8Fr6OxrjtlBGQ5QMwp IBCjAyGeOxWeWyK2B1 LnAce0DRUecKohBO8w J3Bh MOUbbdhsyklbpHV1FP QiMGWynQ47zFVqJVqv Kr0dr7F7p113TNIxUT DtrI75Ms4wlOmlBNRm dCBU uG2gjbpaj8uishjzBr RzMOAjZNr2QAe8NWGb bKpbCbKpZLG7GoW0BB T6yEIgfN4vkTkbkkgn dG9w Oyc+E57acT5qWDI0RL R8ihldDANmmlLwBS35 LL27D5FsLjnczAIzgH U+CQLgzmBgpUufWO9s YmFj h7ypn8BhITeiC4RvXI QqHFgcPiq3ITCyCWV0 iDY6uM3xDSXyKGmdi7 R4wLW3G6RgrjWmte5k b2xs NEJfYYusC56hoSTmg2 O1JGPivOK1VQRgcKxm KzLcjF24Qny+PGNvbG jpk4KzZkumw5res3rh dGg9 IjMwJSIgdmFsaWduPS V6x2AxMa52S79vBCkv ZHRoPSIxNSUiIHZhbG fnxv7tkN6vYg4+PGNv bCB3 iRR1gO0gTNFfEgO6SK ckC828TdQrpMPdTqff v9kek2nvdTe3GzKdRR PokuVkqYvpPZP0z6Nn Lz48 H58bRBjwITFaWRSkRC FeCTUcwRygpp3ojN0k Ii8+TU0ns0xvge88lO 48dHI+RHAqYYD9gYmb PSdw UFKywL7gLPdpCcA5FZ KyOmPfbH14kTJrQVui Os3lhZsebGpsEK5sUA Hxwfhjz795QvGcw8dg IDEw rQLsGZouJAN0X76ng5 M2MAQrDGUfPMX9gCX5 dP4umEwuowbwxSQivP sgdmVydGljYWwtYWxp Z246 IHRvcDsnPlBhdGllbn XsThDgXKo5T2UpXdi6 TTScfGnpEQ2cqURfCZ ytWs3yqEiokEtoAQ5d NTBp nfgya984DeZvx9kdGX HrhYQaGJeyRNK8A28n a9H8ITHyOXOnIPR0rZ N4mA6xtBlehyyyfCSg dDsg dmVydGljYWwtYWxpZ2 46IHRvcDsnPkJpcnRo BDEbgXU5LY08VF92aE Mls2B4hHJ1R6ItMRIl bmct sgykvKX6CXDqBNDkmS 21Hu0ofHbgKn4qDEWi FNZ0FTWqxEXwT9NyyF 5bGpXfAGJhUQQjI7Te eHQt IFuzG759EVmsQdO6CG EenpDvB8GxRSHrhBjm XlV8l1X6Ej6KJ7G9EB 28LT25sFVto9M7gGH1 J3Bh XWHwmzmvfzfzkGX1XP UlGMGfgH00Rd1juDok Op0xSZUlEGT4OIImdI LkF2OjpY7nBsTfVXBv MDAw R3UlfTTiGVbzV486OE zrDeF2WYDhpxYyD8At XIHzaDiuYkP4k6Z2Gh 0MDIm5VV20SJ89sNIi c3R5 jMJ9R7QmZXCmjyzfvx gpvIZ7LKEyFPTmwB95 Fh7mtIhzFj6xYSZuSV E1INPaiSInI3VvxB0a OiAj JNObKNQnP5FmjHVoNW mfG109IEfzUbC9VFGg fgBvF0SkGQVetDtsNv A5t0B4Nl8MXCXgOQ10 IFR5 jOP2VZ27EC40Y3BcAd wvdGFibGU+PHRhYmxl IHdpZHRoPScxMDAlJy HedZhlCK2lBw5wXRCc LWNv oUfxfDDcNhCao9gbZK MpSOdjFR4gvKzcK7Wz vNJ5HDWlz7u5Qe00I4 9uG5YllMC+PGNvbCB3 aWR0 yY8cCkPuRcK3FLcxR4 42EoVtdFBeGktqa4rl k1xwzGg5IkV0AAIzvu XnkImbJBB7b6MoQu27 Y29s IHdpZHRoPSIxNSUiIH TfdZncma5ueA3rJx7+ VUEzuTI4yYK5eU6lSa OmJlB2VCpzI805RfYx cCIv Ayadq0dlg1erbFc9Uh IwJSIgdmFsaWduPSJ0 g1EuSl28R4YezHfce8 AxEeq6rt29nJSyb4D5 bGU9 P3XxLKRltlswqDXlhR jrYL9vMUBiffvvKAWo zW4iPZNxK7r3CsDaBq L8GIzgI8SjoiU4KQVp cHQg WXfcHKV8U94kv5O7YM FvFUJaIMK2fPV9fF1q bGlnbjogbGVmdDsgdm GchExuHUerHWohG895 IHRv vDwvGMRgdN2fFIIsaN DguDsoIO9yBHPwwore AhKOJnIVXwgqNL3VML JHDZL7T0PzXbz4HDBc dHls ZB2jiIGkFWrwEz6lmP kmqSgkSU7oJBMjmisg UFAtaL2sDCSzsEHjqC gtVT6tTGWtupqpg961 OiAx RNJ5QTJpkMZnR1CltC 3cZjVsUGNqFAOfG8Eh bHNtHKvcY283ZQleJu N6IWRxfbDxF5XaOXMp aWdu FoO9e3V1Me9rLi4tGn 1yUQzfAQ41PU39nSTw t4K9hWG9H6LaZTJjgq lukixjeMC5DFUlUGTk aW47 rAMsBBrqAs0gb1Z0o2 07BKZwRCHbqU17Zy3o tMneWBJnrYYHnC2yfl dwb8xhnwdcXbStXKOi MDt0 PPc9TLKiaPvlQrSgID A1OzC6PUG2vHSxpL8j pTfuzvgidP4hQwp+Mz NeVRDbryE5Z1WjEem9 ZCBz vYsgCA9noGFfISxdHk 7ngXyalCdxTI7yEQHy wepdFRKlmZ0qWMDhbX MroXjyNJ0bRNJhhfnx b250 QtRiPVM5RIVizHNqC1 WiyF9uIhHeFBHvZIWc U5ZsyUIzEGoaS197UA vmBiU6AMUqxvFzB6Pu LWFs cFuaRqG9i6Q9Xg7OHN 0UFVP7Q9QhIhi3ICXt fXuiNR5qbYTxJQohBe 7kdQuljGlbHJ4lGYOi bjtw XETltI4iKPOfuXXftW ivDZ8tEDGzmbmfs993 QxLeKKU0NMXmuJSzF9 QtuU5lZjKkSAFqVGBj O3Rl sJIpVXceC211DPzcJc V6ZBFjpdZvB7SrFLOu tXyfHsD7v4C2Fr8SSP wvdGQ+ZR94nu87Y9Pa Ymxl Ymd4SALbUBL8bWC9yF 4oIGVsMEdhe5K3qUF6 Z5OeadOdbf7oz2roMU DtMXirU27dxQOvv5M6 IGVt qKX4ABTlwSmsFxGtwS 93Oyc+DCTitQocf4Bk Ishwa1qgn0xmhZn3Tl MwJSIgdmFsaWduPSJ0 b3Ai Ck81H11dDOnzNCAvSI AuOSGqYYVrnYpvme7y cC8fFh7+DOEpvKM7kF J1iP7nKtBcDzE0GZlz Z249 KkAclBKiKmtrb4ato6 orfLh9FiHyXDQrykZv wCebVZS9p0BrAt92R4 TouGoew3PwLrk6gj77 dGQg k1N5zVH4C1UjHLLyvd epkIFzcQdgIB6eDBSt uwhxXVZgiG3gOZPtV5 l4BeDjHgX5DSfiG4Bn bnQ6 IGJvbGQgMTBwdCBUaW 0nlgwqd9byrmunVaJm DDNvVFk5XHe0EHHceD xhLkGiOSE9XxL3DYV3 aWNh zQ3ztMviifiawZ9eBk c+LBu5k6reqRTwMD1y dHP2GS70KG63jWKje4 K4bTO6F8TmFCEhqxbe cmln oXT4UOCuLOXouD83Wl 3icLokMy0nTLUyFUG6 HXWkiPMpO1IsgH7uSb AiTTPvBEZnD8JizLLa YWxp L792ZZlqOlQ0FPRosm OoK6IkAOGofAzgBcF3 q2E2Ed3IKA46LF54BS 35dFLlz7H3fHX2O8Lb ZGRp wmkitigsfTU7SAWqIA LopY85Ba5jrDfiJk5q JJVfEHU2YOHphQZkG5 EixE0uBjStPGSsOPRd O3Rl vOKtBSpnS748OHxbTp J4XXYaawLvY9WuQTXz gThlNkK2y0Z9Va2YAx 98QG98PY62oDGro8A2 bGU9 T8QgUHVtbhjyanfxjR U8VPOpLFMgqA92Af7v jArpSe5kXITwKUW2YY QwgUSmQ3BhyW5pVeMx MDAw VPBoK6QhdXZsHOfhD2 62BHvjKjH6GITusyFk J9GaEENzhEzlIdY7u0 S4Dt5EGLtozwz0M4Yy Pjwv dHI+EZ01RATzXE06hC UzpRWti7axwJo7YpRu XGLqZNN5rDcpVYwvc7 ShYMAlI36snHGqm0X5 IGNv bGx (more content not included)... 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 It has not been cleared or approved by the [place] Food and Drug Administration. The FDA has determined that such clearance or approval is not necessary. This test is used for clinical purposes. It should not be regarded as investigational or research. Performed By: #### C BC #### [facility] [address] [place] [address] Sunshine Carlos CULTURE URINEon 11-10-2020 CULTURE URINE [...] Normal [facility] Comment on above: Performed By: #### C BC #### [facility] [address] [place] [address] Sunshine Carlos CHLAMYDIA/GONOCOCCUS TINA (SW AB/URINE/PAPon 11-09-2020 Chlamydia trachomatis, TINA Negative Normal Negative [facility] Comment on above: Performed By: #### C T/NGNA #### [facility] [address] [place], [place] [id number] Sunshine Carlos Neisseria gonorrhoeae, TINA Negative Normal Negative [facility] Comment on above: Performed By: #### C T/NGNA #### [facility] [address] [place], [place] [id number] Sunshine Carlos Covid-19 PCR (CVDTB)on 10-18 SARS-CoV-2 (COVID-19) RNA TINA+probe Ql (Unsp spec) Not detected Normal NOT DETECTED [facility] Comment on above: Result Comment: This test is not yet approved or cleared by the [place] FDA. When there are no FDA-approved or cleared tests available, and other criteria are met, FDA can make tests available under an emergency access mechanism called an Emergency Use Authorization (EUA). The EUA for this test is supported by the [place] of Health and Human Service's (HHS's) declaration [...] CVDTBH #### [facility] [address] [place] [address] Sunshine Breanna ER URINE PROFILEon 1 Bilirubin Ql (U) Negative Normal NEGATIVE [facility] Comment on above: Performed By: #### C BC #### [facility] [address] [place] [address] Sunshine Breanna Clarity (U) CLEAR Normal CLEAR [facility] Comment on above: Performed By: #### C BC #### [facility] [address] [place] [address] Sunshine Breanna Color (U) LT. YELLOW Normal YELLOW [facility] Comment on above: Performed By: #### C BC #### [facility] [address] [place] [address] Sunshine Breanna ERUAHD A micrscopic examination will be performed if indicated. Normal [facility] Comment on above: Performed By: #### C BC #### [facility] [address] [place] [address] Sunshine Breanna Glucose Ql (U) Negative Normal NEGATIVE [facility] Comment on above: Performed By: #### C BC #### [facility] [address] [place] [address] Sunshine Breanna Hemoglobin Ql (U) LARGE Abnormal NEGATIVE [facility] Comment on above: Performed By: #### C BC #### [facility] [address] [place] [address] Sunshine Breanna Ketones Ql (U) Negative Normal NEGATIVE [facility] Comment on above: Performed By: #### C BC #### [facility] [address] [place], [place] [id number] Sunshine Breanna LEUKOCYTES Negative Normal NEGATIVE [facility] Comment on above: Performed By: #### C BC #### [facility] [address] [place] [address] Sunshine Breanna Nitrite Ql (U) Negative Normal NEGATIVE [facility] Comment on above: Performed By: #### C BC #### [facility] [address] [place] [address] Sunshine Breanna pH (U) 5.5 [pH] Normal 5-9 [facility] Comment on above: Performed By: #### C BC #### [facility] [address] [place] [address] Sunshine Breanna SPEC GRAVITY >=1.030 Abnormal 1.005-<=1.02 5 [facility] Comment on above: Performed By: #### C BC #### [facility] [address] [place] [address] Sunshine Breanna UA PROTEIN Negative Normal NEGATIVE/ TRACE [facility] Comment on above: Performed By: #### C BC #### [facility] [address] [place] [address] Sunshine Breanna UR MICRO IND INDICATED Normal [facility] Comment on above: Performed By: #### C BC #### [facility] [address] [place] [address] Sunshine Breanna Urobilinogen Qn (U) 0.2 {Braden'U}/dL Normal 0.2 - 1. 0 [facility] Comment on above: Performed By: #### C BC #### [facility] [address] [place] [address] Sunshine Breanna URon 11-08-2020 , QUAL Negative Normal NEGATIVE [facility] Comment on above: Performed By: #### C BC #### [facility] [address] [place] [address] Sunshine Carlos STREPT SCREENon 11-08-2020 STREP SCREEN A Positive Abnormal NEGATIVE [facility] Comment on above: Performed By: #### C BC #### [facility] [address] [place], [place] [id number] Sunshine Carlos SYMPTOMATIC COVID-19 ANTIGEN on 11-08-2020 EUA Statement SEE BELOW Normal [facility] Comment on above: Result Comment: This [...] is revoked sooner. Performed By: #### C JAYMIES, CVDTB #### [facility] [address] [place], [place] [id number] Sunshine Carlos SARS-CoV-2 (COVID-19) RNA TINA+probe Ql (Unsp spec) Negative Normal NEGATIVE [facility] Comment on above: Result Comment: CONF IRMATION BY PCR PENDING PER CDC GUIDELINES/ SYMPTOMATIC PATIENT. Performed By: #### C VDAGS, CVDTBH #### [facility] [address] [place], [place] [id number] Sunshine Carlos URINE MICROSCOPIC ONLYon AMORPHOUS CRYSTALS FEW Normal [facility] Comment on above: Performed By: #### C BC #### [facility] [address] [place], [place] [id number] Sunshine Carlos BACTERIA SMALL Abnormal NONE SEEN The [facility] Comment on above: Performed By: #### C BC #### [facility] [address] [place] [address] Sunshine Breanna Bacteria identified Cx Nom (U) INDICATED Normal [facility] Comment on above: Performed By: #### C BC #### [facility] [address] [place], [place] [id number] Sunshine Breanna CAST NONE SEEN Normal NONE SEEN The [facility] Comment on above: Performed By: #### C BC #### [facility] [address] [place] [address] Sunshine Breanna Crystals LM Nom (Urine sed) SEEN Abnormal NONE SEEN The [facility] Comment on above: Performed By: #### C BC #### [facility] [address] [place], [place] [id number] Sunshine Breanna Epithelial cells LM Ql (Urine sed) MODERATE Abnormal NONE SEEN /RARE The [facility] Comment on above: Performed By: #### C BC #### [facility] [address] [place] [address] Sunshine Breanna MUCOUS MODERATE Abnormal NONE SEEN The [facility] Comment on above: Performed By: #### C BC #### [facility] [address] [place], [place] [id number] Sunshine Breanna RBC 2-5 Abnormal 0-2 [facility] Comment on above: Performed By: #### C BC #### [facility] [address] [place], [place] [id number] Sunshine Breanna WBC 5-10 Abnormal NONE SEEN The [facility] Comment on above: Performed By: #### C BC #### [facility] [address] [place], [place] [id number] Sunshine Breanna US SINGLE QUAD RT UPPERon [...] Normal [facility] AMYLASEon 08-17-2020 Amylase [Catalytic activity/Vol] 49 U/L Normal 31-110 [facility] Comment on above: Performed By: #### C BC #### [facility] [address] [place] [address] Sunshine Breanna CBC AUTO DIFFon 08-17-2020 BASO # 0.0 103/ul Normal 0.0-0.1 [facility] Comment on above: Performed By: #### C BC #### [facility] [address] [place] [address] Sunshine Breanna Basophils/100 WBC (Bld) 0.6 % Normal 0.2-2.0 [facility] Comment on above: Performed By: #### C BC #### [facility] [address] [place] [address] Sunshine Breanna EO # 0.1 103/ul Normal 0.0-0.7 [facility] Comment on above: Performed By: #### C BC #### [facility] [address] [place] [address] Sunshine Breanna Eosinophils/100 WBC (Bld) 1.3 % Normal 0.9-7.0 [facility] Comment on above: Performed By: #### C BC #### [facility] [address] [place] [address] Sunshine Breanna Erythrocyte distribution width (RBC) [Ratio] 13.0 % Normal 11.0-15.0 [facility] Comment on above: Performed By: #### C BC #### [facility] [address] [place] [address] Sunshine Breanna Hematocrit (Bld) [Volume fraction] 39.1 % Normal 36.0-48.0 [facility] Comment on above: Performed By: #### C BC #### [facility] [address] [place] [address] Sunshine Breanna Hemoglobin (Bld) [Mass/Vol] 13.2 g/dL Normal 12.0-16.0 [facility] Comment on above: Performed By: #### C BC #### [facility] [address] [place] [address] Sunshine Breanna IG # 0.01 10e3/ul Normal 0.00-0.03 [facility] Comment on above: Performed By: #### C BC #### [facility] [address] [place] [address] Sunshine Breanna IG % 0.1 % Normal 0.0-0.5 [facility] Comment on above: Performed By: #### C BC #### [facility] [address] [place] [address] Sunshine Breanna LYMPH # 2.4 103/ul Normal 1.2-3.8 [facility] Comment on above: Performed By: #### C BC #### [facility] [address] [place] [address] Sunshine Carlos Lymphocytes/100 WBC (Bld) 33.5 % Normal 20.5-60.0 [facility] Comment on above: Performed By: #### C BC #### [facility] [address] [place] [address] Sunshine Gonzalezen MANUAL DIFF REQ NO Normal [facility] Comment on above: Performed By: #### C BC #### [facility] [address] [place], [place] [id number] Sunshine Breanna MCH (RBC) [Entitic mass] 30.6 pg Normal 26.7-34.0 [facility] Comment on above: Performed By: #### C BC #### [facility] [address] [place], [place] [id number] Sunshine Carlos MCHC (RBC) [Mass/Vol] 33.8 g/dL Normal 29.9-35.2 [facility] Comment on above: Performed By: #### C BC #### [facility] [address] [place], [place] [id number] Sunshine Carlos MCV (RBC) [Entitic vol] 90.7 fL Normal 81.0-99.0 [facility] Comment on above: Performed By: #### C BC #### [facility] [address] [place], [place] [address] Sunshinevinita Gonzalezen MONO # 0.3 103/ul Normal 0.3-0.8 [facility] Comment on above: Performed By: #### C BC #### [facility] [address] [place], [place] [address] Sunshine Carlos Monocytes/100 WBC (Bld) 4.1 % Normal 1.7-12.0 [facility] Comment on above: Performed By: #### C BC #### [facility] [address] [place], [place] [id number] Sunshine Gonzalezen NEUT # 4.2 103/ul Normal 1.4-6.5 [facility] Comment on above: Performed By: #### C BC #### [facility] [address] [place], [place] [address] Sunshine Carlos Neutrophils/100 WBC (Bld) 60.4 % Normal 43.0-75.0 [facility] Comment on above: Performed By: #### C BC #### [facility] [address] [place], [place] [address] Sunshine Carlos Platelet mean volume (Bld) [Entitic vol] 10.7 fL Normal 9.5-13.5 [facility] Comment on above: Performed By: #### C BC #### [facility] [address] [place], [place] [address] Sunshine Breanna PLT 321 103/ul Normal 150-450 [facility] Comment on above: Performed By: #### C BC #### [facility] [address] [place], [place] [address] Sunshine Breanna RBC 4.31 106/ul Normal 4.20-5.40 [facility] Comment on above: Performed By: #### C BC #### [facility] [address] [place] [address] Sunshine Carlos WBC 7.0 103/ul Normal 4.0-11.0 [facility] Comment on above: Performed By: #### C BC #### [facility] [address] [place], [place] [id number] Sunshine Carlos LIPASEon 08-17-2020 Lipase [Catalytic activity/Vol] 97.0 U/L Normal 23.0-300.0 [facility] Comment on above: Performed By: #### T CANDE, CMP, LIPA, JANINE #### [facility] [address] [place] [address] Sunshine Carlos PROF 14(COMP METB)on 021 Albumin [Mass/Vol] 3.5 g/dL Normal 3.5-5.0 [facility] Comment on above: Performed By: #### T CANDE, CMP, LIPA, JANINE #### [facility] [address] [place] [address] Sunshine Carlos Albumin/Globulin [Mass ratio] 0.8 {ratio} Normal [facility] Comment on above: Performed By: #### T CANDE, CMP, LIPA, JANINE #### [facility] [address] [place] [address] Sunshinevinita Carlos ALP [Catalytic activity/Vol] 64 U/L Normal 38-126 [facility] Comment on above: Performed By: #### T CANDE, CMP, LIPA, JANINE #### [facility] [address] [place] [address] Sunshine Carlos ALT [Catalytic activity/Vol] 12 U/L Normal 9-52 [facility] Comment on above: Performed By: #### T CANDE, CMP, LIPA, JANINE #### [facility] [address] [place] [address] Sunshine Breanna Anion gap [Moles/Vol] 14.9 mmol/L Normal [facility] Comment on above: Performed By: #### T CANDE, CMP, LIPA, JANINE #### [facility] [address] [address] Sunshine Breanna AST [Catalytic activity/Vol] 9 U/L Critically low 14-36 [facility] Comment on above: Performed By: #### T CANDE, CMP, LIPA, JANINE #### [facility] [address] [address] Sunshine Breanna Bilirubin [Mass/Vol] 0.2 mg/dL Normal 0.2-1.3 [facility] Comment on above: Performed By: #### T CANDE, CMP, LIPA, JANINE #### [facility] [address] [place] [address] Sunshine Breanna Calcium [Mass/Vol] 8.9 mg/dL Normal 8.4-10.2 [facility] Comment on above: Performed By: #### T CANDE, CMP, LIPA, JANINE #### [facility] [address] [place] [address] Sunshine Breanna Chloride [Moles/Vol] 108 mmol/L Critically high 98-107 [facility] Comment on above: Performed By: #### T CANDE, CMP, LIPA, JANINE #### [facility] [address] [place] [address] Sunshine Breanna CO2 [Moles/Vol] 23.8 mmol/L Normal 22.0-30.0 [facility] Comment on above: Performed By: #### T CANDE, CMP, LIPA, JANINE #### [facility] [address] [address] Sunshine Breanna Creatinine [Mass/Vol] 0.81 mg/dL Normal 0.52-1.04 [facility] Comment on above: Performed By: #### T CANDE, CMP, LIPA, JANINE #### [facility] [address] [place] [address] Sunshine Breanna EGFR-AF [place] >60 Normal >=60 [facility] Comment on above: Performed By: #### T CANDE, CMP, LIPA, JANINE #### [facility] [address] [address] Sunshine Breanna EGFR-NON AF [place] >60 Normal >=60 [facility] Comment on above: Performed By: #### T CANDE, CMP, LIPA, JANINE #### [facility] [address] [address] Sunshine Breanna Globulin (S) [Mass/Vol] 4.4 g/dL Normal T [facility] Comment on above: Performed By: #### T CANDE, CMP, LIPA, JANINE #### [facility] [address] [address] Sunshine Breanna Glucose [Mass/Vol] 92 mg/dL Normal 74-106 [facility] Comment on above: Performed By: #### T CANDE, CMP, LIPA, JANINE #### [facility] [address] [place] [address] Sunshine Breanna Potassium [Moles/Vol] 3.7 mmol/L Normal 3.4-5.0 [facility] Comment on above: Performed By: #### T CANDE, CMP, LIPA, JANINE #### [facility] [address] [place] [address] Sunshine Breanna Protein [Mass/Vol] 7.9 g/dL Normal 6.1-8.2 [facility] Comment on above: Performed By: #### T CANDE, CMP, LIPA, JANINE #### [facility] [address] [place] [address] Sunshine Breanna Sodium [Moles/Vol] 143 mmol/L Normal 137-145 [facility] Comment on above: Performed By: #### T CANDE, CMP, LIPA, JANINE #### [facility] [address] [place] [address] Sunshine Breanna Urea nitrogen [Mass/Vol] 14.0 mg/dL Normal 7.0-17.0 [facility] Comment on above: Performed By: #### T CANDE, CMP, LIPA, JANINE #### [facility] [address] [place] [address] Sunshine Breanna Urea nitrogen/Creatinine [Mass ratio] 17.3 mg/mg Normal [facility] Comment on above: Performed By: #### T CANDE, CMP, LIPA, JANINE #### [facility] [address] [address] Sunshine Brenana PREG QUANT HCGon 06-02-2020 HCG QUANT 14 mIU/mL Normal [facility] Comment on above: Performed By: #### C IVELISSE, CVDTB #### [facility] [address] [place] [address] Sunshine Breanna HCG RANGE SEE BELOW Normal [facility] Comment on above: Result Comment: 5-50 0-1 WEEK 40-300 1-2 WEEKS 100-1,000 2-3 WEEKS 500-6,000 3-4 WEEKS 5,000-200,000 1-2 MONTHS 10,000-100,000 2-3 MONTHS 3,000-50,000 2ND TRIMESTER 1,000-50,000 3RD TRIMESTER Performed By: #### C IVELISSE, CVDTB #### [facility] [address] [place] [address] Sunshine Breanna PREG QUANT HCGon 05-20-2020 HCG QUANT 13 mIU/mL Normal [facility] Comment on above: Performed By: #### C BC #### [facility] [address] [place], [place] [id number] Sunshine Breanna HCG RANGE SEE BELOW Normal [facility] Comment on above: Result Comment: 5-50 0-1 WEEK 40-300 1-2 WEEKS 100-1,000 2-3 WEEKS 500-6,000 3-4 WEEKS 5,000-200,000 1-2 MONTHS 10,000-100,000 2-3 MONTHS 3,000-50,000 2ND TRIMESTER 1,000-50,000 3RD TRIMESTER Performed By: #### C BC #### [facility] [address] [place], [place] [id number] Sunshine Breanna PREG QUANT HCGon 05-06-2020 HCG QUANT 20 mIU/mL Normal [facility] Comment on above: Performed By: #### P REGQNT #### [facility] [address] [place], [place] [id number] Sunshine Breanna HCG RANGE SEE BELOW Normal [facility] Comment on above: Result Comment: 5-50 0-1 WEEK 40-300 1-2 WEEKS 100-1,000 2-3 WEEKS 500-6,000 3-4 WEEKS 5,000-200,000 1-2 MONTHS 10,000-100,000 2-3 MONTHS 3,000-50,000 2ND TRIMESTER 1,000-50,000 3RD TRIMESTER Performed By: #### P REGQNT #### [facility] [address] [address] Sunshine Breanna PREG QUANT HCGon 04-29-2020 HCG QUANT 21 mIU/mL Normal [facility] Comment on above: Performed By: #### P REGQNT #### [facility] [address] [place] [address] Sunshine Breanna HCG RANGE SEE BELOW Normal [facility] Comment on above: Result Comment: 5-50 0-1 WEEK 40-300 1-2 WEEKS 100-1,000 2-3 WEEKS 500-6,000 3-4 WEEKS 5,000-200,000 1-2 MONTHS 10,000-100,000 2-3 MONTHS 3,000-50,000 2ND TRIMESTER 1,000-50,000 3RD TRIMESTER Performed By: #### P REGQNT #### [facility] [address] [place] [address] Sunshine Breanna ABO AND RH TYPEon 04-22-2020 ABO and Rh group Nom (Bld) ABO Rh Typing O Rh Positive Normal [facility] Comment on above: Performed By: #### C BC #### [facility] [address] [place], [place] [id number] Sunshine Breanna PREG QUANT HCGon 04-22-2020 HCG QUANT 37 mIU/mL Normal [facility] Comment on above: Performed By: #### P REGQNT #### [facility] [address] [place], [place] [id number] Sunshine Breanna HCG RANGE SEE BELOW Normal [facility] Comment on above: Result Comment: 5-50 0-1 WEEK 40-300 1-2 WEEKS 100-1,000 2-3 WEEKS 500-6,000 3-4 WEEKS 5,000-200,000 1-2 MONTHS 10,000-100,000 2-3 MONTHS 3,000-50,000 2ND TRIMESTER 1,000-50,000 3RD TRIMESTER Performed By: #### P REGQNT #### [facility] [address] [place], [place] [address] Sunshine Carlos ED Note-Physicianon 10-16-19 ED Note-Physician [id number] 0EC#[id number]:[id number] Normal [facility] Chlam and gonorrhea: Amp, Ur ine -UHEon 01-12-2017 Chlam and gonorrhea: Amp, Urine -UHE Negative Negative THIS TEST WAS PERFORMED USING A REAL TIME PCR ASSAY. Normal [facility] Comment on above: Performed By: #### R NABU ####[address] [address] Beta HCG (Qual), Urine - MCH on 01-09-2017 HCG.beta subunit ( test) Ql (U) Positive Abnormal Negative [facility] Comment on above: Performed By: #### H CGUMD, UR1MD ####[facility] [place], [place] [address] Beta HCG, quant, S - MCHon 1 Beta HCG, quant, S - MCH 43217.0 mIU/mL Normal [facility] Comment on above: Result Comment: FEMA LE GESTATIONAL AGERESULTS <10 ARE CONSIDERED NEGATIVE4 WEEKS 4700-988040 mIU/mL5 WEEKS 3660-958307 mIU/mL6 WEEKS 97989-828308 mIU/mL7 WEEKS 93946-285301 mIU/mL8 WEEKS 79544-149043 mIU/mL9 WEEKS 10744-735820 mIU/mL10 WEEKS 35394-829004 mIU/mL11 WEEKS 6480-738598 mIU/ml12 WEEKS 6740-962385 mIU/mL13-27 WEEKS 8200-705862 mIU/mL28-40 WEEKS 2320-84500 mIU/mL Performed By: #### C BCMD, PTPTMD, TYSCMD, QHCGMD ####[id number] [place], [place] [address] CBC, ELECTRONIC DIFF, PLATEL ET - MCHon 01-09-2017 Absolute Basophil 0.0 K/uL Normal 0.0-0.23 [facility] Comment on above: Performed By: #### C BCMD, PTPTMD, TYSCMD, QHCGMD ####[facility] [place], [place] [address] Absolute Grans 5.9 K/uL Normal 1.8-7.7 [facility] Comment on above: Performed By: #### C BCMD, PTPTMD, TYSCMD, QHCGMD ####[address] [place], [place] [address] Basophils/100 WBC Auto (Bld) 0.5 % Normal 0-2 [facility] Comment on above: Performed By: #### C BCMD, PTPTMD, TYSCMD, QHCGMD ####[address] [place], [place] [address] Eosinophils 0.1 10*3/uL Normal 0.0-0.7 [facility] Comment on above: Performed By: #### C BCMD, PTPTMD, TYSCMD, QHCGMD ####[address] [place], [place] [address] Eosinophils/100 leukocytes 1.0 % Normal 0-5.0 [facility] Comment on above: Performed By: #### C BCMD, PTPTMD, TYSCMD, QHCGMD ####[address] [place], [place] [address] Erythrocytes (RBC) 13.8 % Normal 11.5-14.5 [facility] Comment on above: Performed By: #### C BCMD, PTPTMD, TYSCMD, QHCGMD ####[address] [address] [employer] 64.6 % Normal 50-70 [facility] Comment on above: Performed By: #### C BCMD, PTPTMD, TYSCMD, QHCGMD ####[address] [place], [place] [address] Hematocrit (HCT) 34.5 % Low 35.0-45.0 [facility] Comment on above: Performed By: #### C BCMD, PTPTMD, TYSCMD, QHCGMD ####[facility] [place], [place] [address] Hemoglobin mass conc (Bld) 31.0 pg Normal 27.0-34.0 [facility] Comment on above: Performed By: #### C BCMD, PTPTMD, TYSCMD, QHCGMD ####[address] [place], [place] [address] Hemoglobin mass conc (Bld) 11.7 g/dL Normal 11.7-15.5 [facility] Comment on above: Performed By: #### C BCMD, PTPTMD, TYSCMD, QHCGMD ####[place] [address], [place] [address] Lymphocytes 2.6 10*3/uL Normal 1.0-4.8 [facility] Comment on above: Performed By: #### C BCMD, PTPTMD, TYSCMD, QHCGMD ####[address] [address] Lymphocytes/100 leukocytes 28.7 % Normal 22.0-44.0 [facility] Comment on above: Performed By: #### C BCMD, PTPTMD, TYSCMD, QHCGMD ####[place] [address] MCH 3.78 M/uL Low 3.8-5.1 [facility] Comment on above: Performed By: #### C BCMD, PTPTMD, TYSCMD, QHCGMD ####[place] [address] MCH 9.1 K/uL Normal 4.5-11.0 [facility] Comment on above: Performed By: #### C BCMD, PTPTMD, TYSCMD, QHCGMD ####[address] [address] MCV 91.0 fL Normal 81.0-100.0 [facility] Comment on above: Performed By: #### C BCMD, PTPTMD, TYSCMD, QHCGMD ####[address] [address] Monocytes 0.5 10*3/uL Normal 0.0-0.9 [facility] Comment on above: Performed By: #### C BCMD, PTPTMD, TYSCMD, QHCGMD ####[address] [address] Monocytes/100 leukocytes 5.2 % Normal 0-7.0 [facility] Comment on above: Performed By: #### C BC, PTPTMD, TYSCMD, QHCGMD ####[place] [address], [place] [address] Platelet mean volume (PMV) 8.3 fL Normal 7.5-11.2 [facility] Comment on above: Performed By: #### C BC, PTPTMD, TYSCMD, QHCGMD ####[facility], [place] [address] Platelets 281 10*3/uL Normal 150-400 [facility] Comment on above: Performed By: #### C BC, PTPTMD, TYSCMD, QHCGMD ####[place] [address], [place] [address] ED PROVIDERon 01-09-2017 [facility] NOT[facility] Normal [facility] C[facility] OP/ED Report Normal [facility] OSIMCACENCSUMon 01-09-2017 [facility] CAC Encounter Summary Report Normal [facility] PT*PTT - MCHon 01-09-2017 aPTT 33 s Normal 24.6-35.9 [facility] Comment on above: Performed By: #### C BC, PTPTMD, TYSCMD, QHCGMD ####[place] [address], [place] [address] INR Coag RelTime (Bld) 1.1 {INR} Normal 0.87-1.15 [facility] Comment on above: Performed By: #### C BC, PTPTMD, TYSCMD, QHCGMD ####[facility], [place] [address] MCH 13.3 sec Normal 11.5-14.3 [facility] Comment on above: Performed By: #### C BC, PTPTMD, TYSCMD, QHCGMD ####[place] [address], [place] [address] TYPE AND SCREEN - MCHon 12-18 MCH ABO/RH(D) - MCH: O POSITIVE ANTIBODY SCREEN - MCH: Negative Normal [facility] Comment on above: Performed By: #### C BCMD, PTPTMD, TYSCMD, QHCGMD ####[address], [place] [address] Urinalysis reflex to Cult - MCHon 01-09-2017 COMMENT URINE None Normal [facility] Comment on above: Performed By: #### H CGUMD, UR1MD ####[address], [place] [address] Squamous Epithelial 2+ /HPF Normal [facility] Comment on above: Performed By: #### H CGUMD, UR1MD ####[address], [place] [address] Urine, bacteria in sediment Absent Normal Absent [facility] Comment on above: Performed By: #### H CGUMD, UR1MD ####[address], [place] [address] Urine, erythrocytes in sediment by area 0-2 Normal 0-2 [facility] Comment on above: Performed By: #### H CGUMD, UR1MD ####[address], [place] [address] Urine, leukocytes in sedmiment 0-5 Normal 0-5 [facility] Comment on above: Performed By: #### H CGUMD, UR1MD ####[address], [place] [address] Bilirubin Urine Negative Normal Negative [facility] Comment on above: Performed By: #### H CGUMD, UR1MD ####[place] [address], [place] [address] Blood Urine Moderate Abnormal Negative [facility] Comment on above: Performed By: #### H CGUMD, UR1MD ####[address], [place] [address] Nitrites Urine Negative Normal Negative [facility] Comment on above: Performed By: #### H CGUMD, UR1MD ####[address], [place] [address] Protein Urine Negative Normal Negative [facility] Comment on above: Performed By: #### H CGUMD, UR1MD ####[place] [address], [place] [address] Specific [place] urine 1.020 Normal 1.001-1.035 [facility] Comment on above: Performed By: #### H CGUMD, UR1MD ####[place] [address], [place] [address] Urine, appearance Clear Normal Clear [facility] Comment on above: Performed By: #### H CGUMD, UR1MD ####[address], [place] [address] Urine, color Yellow Normal YEL,DKYEL [facility] Comment on above: Performed By: #### H CGUMD, UR1MD ####[address], [place] [address] Urine, glucose presence Negative Normal Negative [facility] Comment on above: Performed By: #### H CGUMD, UR1MD ####[address], [place] [address] Urine, ketones presence Negative Normal Negative [facility] Comment on above: Performed By: #### H CGUMD, UR1MD ####[address], [place] [address] Urine, leukocyte esterase presence Negative Normal Negative [facility] Comment on above: Performed By: #### H CGUMD, UR1MD ####[place] [address], [place] [address] Urine, pH 6.0 [pH] Normal 5.0-7.0 [facility] Comment on above: Performed By: #### H CGUMD, UR1MD ####[address], [place] [address] Urobilinogen urine 0.2 EU/dL Normal <2.0 [facility] Comment on above: Performed By: #### H CGUMD, UR1MD ####[address], [place] [address] Vital Signs Date Time Vital Sign Value Performing Clinician Facility 01-01-2024 13:26-040 Body mass index (BMI) [Ratio] 35.88 kg/m2 Janine SEVILLA Work Phone: [facility] 01-01-2024 13:040 Body weight 107.05 kg Janine SEVILLA Work Phone: [facility] 01-01-2024 13:26-0400 Diastolic blood pressure 76 mm[Hg] Janine SEVILLA Work Phone: [facility] 01-01-2024 13:26-0400 Systolic blood pressure 118 mm[Hg] Janine SEVILLA Work Phone: [facility] 12-18-2023 15:06-0400 Body mass index (BMI) [Ratio] 35.54 kg/m2 Dmitriy Rodo DO Work Phone: [facility] 12-18-2023 15:06-0400 Body weight 106.03 kg Dmitriy Rodo DO Work Phone: [facility] 12-18-2023 15:06-0400 Diastolic blood pressure 68 mm[Hg] Dmitriy Rodo DO Work Phone: [facility] 12-18-2023 15:06-0400 Systolic blood pressure 108 mm[Hg] Dmitriy Rodo DO Work Phone: [facility] 03-29-2021 11:15-0500 Body height 172.72 cm Arminda Holt Other [employer] Other 03-29-2021 11:15-0500 Body mass index (BMI) [Ratio] 36.49 kg/m2 Arminda Holt Other [employer] Other 03-29-2021 11:15-0500 Body temperature 97 [degF] Arminda Holt Other [employer] Other 03-29-2021 11:15-0500 Body weight 108.86 kg Arminda Holt Other [employer] Other 03-29-2021 11:15-0500 SaO2% (BldA) [Mass fraction] 99 % Arminda Holt Other [employer] Other Encounters Encounter Date Encounter Type Care Provider Facility Start: 01-01-2024 End: 01-01-2024 Bamboo flowsheet Janine SEVILLA Work Phone: [facility] Start: 01-01-2024 End: 01-01-2024 Bamboo flowsheet Janine SEVILLA Work Phone: [facility] Start: 01-01-2024 End: 01-01-2024 ambulatory JANINE GUZMAN Not Available Start: 01-01-2024 End: 01-01-2024 flow sheet Janine SEVILLA Work Phone: [facility] Comment on above: Third trimester preg kianna; 32 weeks gestation of Start: 12-19-2023 End: 12-19-2023 ambulatory [facility] Start: 12-18-2023 End: 12-18-2023 ambulatory DMITRIY RODO Not Available Start: 12-18-2023 End: 12-18-2023 flow sheet Dmitriy Rodo DO Work Phone: [facility] Comment on above: Third trimester preg kianna; 30 weeks gestation of ; H/O placenta previa Start: 12-18-2023 End: 12-18-2023 Bamboo flowsheet Dmitriy Rodo DO Work Phone: [facility] Start: 12-18-2023 End: 12-18-2023 Bamboo flowsheet Dmitriy Rodo DO Work Phone: [facility] Start: 12-04-2023 End: 12-04-2023 ambulatory JANINE GUZMAN Not Available Start: 11-22-2023 End: [facility] Start: 11-20-2023 End: 11-20-2023 ambulatory DMITRIY RODO Not Available Start: 10-25-2023 End: 10-25-2023 ambulatory DMITRIY R RODO [facility] Start: 10-24-2023 End: 10-24-2023 ambulatory JANINE GUZMAN Not Available Start: 09-24-2023 End: 09-24-2023 ambulatory DMITRIY RODO Not Available Start: 08-22-2023 End: 08-22-2023 ambulatory DMITRIY RODO Not Available Start: 07-26-2023 End: 07-26-2023 ambulatory DMITRIY RODO Not Available Start: 03-29-2021 End: 03-29-2021 ambulatory Arminda Holt Other [employer] Other Start: 03-29-2021 Office outpatient ne w 20 minutes Arminda Holt [facility] Start: 11-08-2020 End: 11-08-2020 ambulatory LISA BERGMAN Facility:[facility] Start: 08-19-2020 End: 08-20-[address] HAMMAD NIEVES Facility:[facility] Start: 08-17-2020 End: 08-17-[address] HAMMAD NIEVES Facility:[facility] Start: 06-02-2020 End: 06-03-2020 ambulatory HREBERT PACHECO Facility:[facility] Start: 05-20-2020 End: 05-21-[address] ORA BOWERS Facility:[facility] Start: 05-06-2020 End: 05-07-2020 ambulatory HERBERT PACHECO Facility:[facility] Start: 04-29-2020 End: 04-30-2020 ambulatory HERBERT PACHECO Facility:[facility] Start: 04-22-2020 End: 04-23-2020 ambulatory HERBERT PACHECO Facility:[facility] Start: 01-09-2017 End: 01-09-2017 Emergency department patient visit SELF SELF [facility] Procedures Date Procedure Procedure Detail Performing Clinician Start: 01-01-2024 Urnls dip stick/tabl et rgnt non-auto w/o micrscp Janine SEVILLA Work Phone: Start: 12-18-2023 Urnls dip stick/tabl et rgnt non-auto w/o micrscp Dmitriy Rodo DO Work Phone: Plan of Treatment Date Care Activity Detail Author Start: 01-15-2024 End: 01-15-2024 Patient encounter procedure 01/15/2024 2:50 PM EDT Routine [facility] [address] [place] [address] Janine Guzman PA [address] [place] [address] [facility] Start: 01-01-2024 End: 01-01-2024 Patient encounter procedure 01/01/2024 1:00 PM EDT Routine [facility] [address] [place] [id number] Janine Guzman PA [address] [place], [place] [id number] [facility] Start: 12-18-2023 End: 12-17-2024 US biophysical profile w non stress test US biophysical profile w non stress test Imaging Routine H/O placenta previa Expected: 12/18/2023 (Approximate), Expires: 12/17/2024 [facility] Work Phone: Comment on above: Expected: 12/18/2023 (Approximate), Expires: 12/17/2024 Payers Date Payer Category Payer Blue [employer] Blue [employer] BCBS Memb er Subscriber Plan / Payer (Effective 2022-Present) Name: Kristin Grigsby Relation to Subscriber: Self Name: Kristin Grigsby Payer ID: Not on file Type: Not on file Address: [address] [place] [id number] 2022 Unknown BCBS BCBS xxxxxx [id number] 2022-Present [phone] [address] [place] [address] [id number] 2022 Unknown [id number] 2017 Unknown [id number] 1989 Unknown [id number] 2.16.840.1.199380.3.579. 2.593 1989 Unknown [id number] 2.16.840.1.010534.3.579. 2.593 1989 Unknown [id number] 2.16.840.1.356623.3.579. 2.593 1989 Unknown [id number] 2.16.840.1.502552.3.579. 2.593 1989 Unknown [id number] 2.16.840.1.235437.3.579. 2.593 1989 Unknown [id number] 2.16.840.1.166173.3.579. 2.593 1989 Unknown [id number] 2.16.840.1.414268.3.579. 2.593 1989 Unknown [id number] 2.16.840.1.932705.3.579. 2.593 1989 Unknown [id number] 2.16.840.1.506520.3.579. 2.1286 1989 Unknown [id number] 2.16.840.1.154053.3.579. 2.1286 1989 Unknown [id number] 2.16.840.1.904032.3.579. 2.1286 1989 Unknown [id number] 2.16.840.1.675443.3.579. 2.1286 1989 Unknown [id number] 2.16.840.1.951098.3.579. 2.1259 1989 Unknown [id number] 2.16.840.1.598198.3.579. 2.1259 1989 Unknown [id number] 2.16.840.1.075280.3.579. 2.1259 1989 Unknown [id number] 2.16.840.1.143418.3.579. 2.1259 1989 Unknown [id number] 2.16.840.1.832256.3.579. 2.9 1989 Unknown [id number] 2.16.840.1.361176.3.579. 2.9 1989 Unknown [id number] 2.16.840.1.736889.3.579. 2.9 1989 Unknown [id number] 2.16.840.1.586565.3.579. 2.1259 1959 Private Health Insurance [id number] Self-pay [id number] Unknown [id number] 2.16.840.1.510514.19 Social History Date Type Detail Facility Start: 08-22-2023 Sex Assigned At [employer] Other Start: 08-22-2023 End: 01-01-2024 Tobacco smoking status [facility] Ex-smoker [facility] Start: 08-18-2015 End: 09-19-2014 History of tobacco use Current smoker [facility] Start: 08-18-2015 End: 09-19-2014 History of tobacco use Cigarette Smoker [facility] Start: 08-22-2023 End: 01-01-2024 Cigarettes smoked current (pack per day) - Reported 0.5 [facility] Start: 08-22-2023 End: 01-01-2024 Tobacco use and exposure Smokeless tobacco non-user [facility] Start: 12-04-2023 End: 01-01-2024 Alcoholic beverage intake Ex-drinker (finding) [facility] Start: 05-30-2023 [facility] Start: 1990 Sex assigned at Not on file [facility] Start: 07-26-2023 Gender identity Identifies as female gender (finding) [facility] Start: 07-26-2023 Sexual orientation Heterosexual (finding) [facility] History of Present illness Narrative 01-01-2024 DI Serna - 01/01/2024 1:00 PM EDT Note Date & Type Note Facility 01-01-2024 History of Presen t illness Narrative Reason [...] packs/day: 0.50 Average packs/day: 0.5 packs/day for 17.4 years (8.7 ttl pk-yrs) Types: Cigarettes Start [...] Exam Constitutional: Appearance: Normal appearance. She is normal weight. HENT: Head: Normocephalic. Cardiovascular: Rate and Rhythm: Normal rate. Pulses: Normal pulses. Pulmonary: Effort: Pulmonary effort is normal. Breath sounds: Normal breath sounds. Abdominal: Palpations: Abdomen is soft. Musculoskeletal: General: Normal range of motion. Neurological: General: No focal deficit present. Mental Status: She is alert and oriented to person, place, and time. Psychiatric: Mood and Affect: Mood normal. Behavior: Behavior normal. Thought Content: Thought content normal. Judgment: Judgment normal. Vitals and nursing note reviewed. Vitals: Estimated body mass index is 35.88 kg/m as calculated from the following: Height as of 02/16/21: 5' 8 . Weight as of this encounter: 236 lb. BP: 118/76 Patient's last menstrual period was 05/22/2023. ASSESSMENT & PLAN ICD-10-CM 1. Third trimester Z34.93 2. 32 weeks gestation of Z3A.32 POCT urinalysis dipstick manually resulted Return OB: Patient presents today for a routine obstetrics appointment. Patient is currently 32w6d . Patient states she is doing well but has complaints of being tired due to current . Patient has verbalizes frequent movement. labor precautions was discussed/given and patient was instructed to perform kick counts three times a day. Orders Placed This Encounter Procedures POCT urinalysis dipstick manually resulted Follow Up: Patient is to return to office in 2 week for routine OB appointment. Documented by DI Serna on behalf of: DI Serna documented in this encounter [facility] History of Present illness Narrative 12-18-2023 Breanna Cisneros LPN - 12/18/2023 2:50 PM EDT Note Date [...] nursing note reviewed. Exam conducted with a tiltrotor crew chief present. Vitals: Estimated body mass index is [...] by Breanna Cisneros LPN on behalf of: Dmirtiy Koehler DO documented in this encounter [facility] Evaluation note 03-29-2021 Note Date & Type [...] Patient care instructions given in writting by [facility] document. [employer] Other Evaluation note Note Date & Type Note Facility Evaluation note Diagnosis Third trimester state, incidental 30 weeks gestation of H/O placenta previa documented in this encounter [facility] Evaluation note Note Date & Type Note Facility Evaluation note Diagnosis Third trimester state, incidental 32 weeks gestation of documented in this encounter [facility] Summary [...] and content) DATE CREATED AUTHOR 09/11/2017 [facility] DATE CREATED AUTHOR AUTHOR'S ORGANIZ ATION [facility] DATE CREATED AUTHOR AUTHOR'S ORGANIZ ATION 11/24/2020 [facility] DATE CREATED AUTHOR AUTHOR'S ORGANIZ ATION 04/08/2021 [facility] DATE CREATED AUTHOR AUTHOR'S ORGANIZ ATION 04/18/2021 [facility] dical Specialist DATE CREATED AUTHOR AUTHOR'S ORGANIZ ATION 06/24/2021 [facility] DATE CREATED AUTHOR AUTHOR'S ORGANIZ ATION 11/24/2023 [facility] DATE CREATED AUTHOR AUTHOR'S ORGANIZ ATION 12/21/2023 [facility] DATE CREATED AUTHOR AUTHOR'S ORGANIZ ATION 01/03/2024 [facility] dical Specialists EPIC REASON FOR [...] BE BASED ON THE PRIMARY CLINICAL RECORDS. [facility] [employer] provides no warranty or guarantee of the accuracy or completeness of information in this document.
[2024-01-07 14:07] VITALS: BP 122/77; PULSE 92
== END 2024-01-07 14:35 | disposition home or self-care (01) ==
LOC: FBCO 06:56 → FBC 14:03
PROVIDERS: Visit Provider Obstetrics & Gynecology
DX: O26.893 Other specified pregnancy related conditions, third trimester (principal); Z3A.33 33 weeks gestation of pregnancy
CPT/HCPCS: 59025

== ENCOUNTER 2024-01-10 07:00 | Outpatient (OUT) | payer BC, SELFPAY ==
--- OUTSIDE RECORDS SUMMARY | 2024-01-10 07:02 | XMS_ITS | CCD ---
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; Translations: [OTH PRISON CURRENT DRUG THERAPY] Onset: 08-19-2020 Episodic Residual [...] UA Negative Negative - 4(70) +++ mg/dL [facility] Blood, UA Negative Negative - 50 Wili/mcL [facility] Healthcare Clarity, UA Clear [facility] Color, UA Yellow [facility] Glucose, UA Negative Negative - 1999(110) ++++ mg/dL [facility] Interpretation and review of laboratory results Abnormal [facility] Ketones, UA Positive Negative - 160(16) ++++ mg/dL [facility] Comment on above: trace Leukocytes, UA Negative Negative - 500+++ Yajaira/mcL [facility] Nitrite, UA Negative Negative - Positive [facility] pH, UA 7 5 - 9 [facility] Protein, UA Positive Negative - 1999(20) ++++ mg/dL [facility] Comment on above: 30 Spec Grav, UA 1.025 1 - 1.03 [facility] Health care Urobilinogen, UA 0.2 0.2 - 12 mg/dL [facility] Urinalysis macro (dipstick) panel (U)on 12-18-2023 Bilirubin, UA Negative Negative - 4(70) +++ mg/dL [facility] Blood, UA Negative Negative - 50 Wili/mcL [facility] Clarity, UA Clear [facility] Color, UA Yellow [facility] Glucose, UA Negative Negative - 1999(110) ++++ mg/dL [facility] Interpretation and review of laboratory results Abnormal [facility] Ketones, UA Negative Negative - 160(16) ++++ mg/dL [facility] Leukocytes, UA Negative Negative - 500+++ Yajaira/mcL [facility] Nitrite, UA Negative Negative - Positive [facility] pH, UA 6.5 5 - 9 [facility] Protein, UA Trace Negative - 1999(20) ++++ mg/dL [facility] Spec Grav, UA 1.030 1 - 1.03 [facility] Urobilinogen, UA 0.2 0.2 - 12 mg/dL [facility] Complete Blood Count Auto Di ffon 06-14-2021 Basophils (Bld) [#/Vol] 0.0 10*3/uL Normal 0.0-0.2 [facility] Comment on above: Result Comment: PERF ORMED BY: [facility] [address] [address] PATHOLOGIST CLINICAL REHABILITATION COORDINATOR STEPHANIE ROACH M.D. Performed By: #### C BC #### [address] Basophils/100 WBC (Bld) 0.6 % Normal . [facility] Comment on above: Performed By: #### C BC #### [address] Eosinophils (Bld) [#/Vol] 0.1 10*3/uL Normal 0.0-0.45 [facility] Comment on above: Performed By: #### C BC #### [address] Eosinophils/100 WBC (Bld) 1.7 % Normal . [facility] Comment on above: Performed By: #### C BC #### [address] Erythrocyte distribution width (RBC) [Ratio] 13.5 % Normal 11.9-15.3 [facility] Comment on above: Performed By: #### C BC #### [address] Hematocrit (Bld) [Volume fraction] 30.6 % Low 34.0-46.4 [facility] Comment on above: Performed By: #### C BC #### [address] Hemoglobin (Bld) [Mass/Vol] 10.2 g/dL Low 11.8-15.4 [facility] Comment on above: Performed By: #### C BC #### [address] Lymphocytes (Bld) [#/Vol] 2.1 10*3/uL Normal 1.00-4.8 [facility] Comment on above: Performed By: #### C BC #### [address] Lymphocytes/100 WBC (Bld) 24.1 % Normal . [facility] Comment on above: Performed By: #### C BC #### [address] MCH (RBC) [Entitic mass] 31.4 pg Normal 24.7-34.3 [facility] Comment on above: Performed By: #### C BC #### [facility] [address] MCV (RBC) [Entitic vol] 94.0 fL Normal 80-100 [facility] Comment on above: Performed By: #### C BC #### [facility] [address] Mean Corpuscular HGB Conc 33.4 g/dL Normal 32.0-35.0 [facility] Comment on above: Performed By: #### C BC #### [facility] [address] [place] [address] [place] Monocytes (Bld) [#/Vol] 0.4 10*3/uL Normal 0.0-0.8 [facility] Comment on above: Performed By: #### C BC #### [facility] [address] [place] [address] [place] Monocytes/100 WBC (Bld) 4.9 % Normal . [facility] Comment on above: Performed By: #### C BC #### [facility] [address] [place] [address] [place] Neutrophils (Bld) [#/Vol] 5.9 10*3/uL Normal 1.8-7.7 [facility] Comment on above: Performed By: #### C BC #### [facility] [address] [place] [address] [place] Neutrophils/100 WBC (Bld) 68.7 % Normal . [facility] Comment on above: Performed By: #### C BC #### [facility] [address] [place] [address] [place] Nucleated RBC/100 WBC (Bld) [Ratio] 0.1 % Normal 0-0.5 [facility] Comment on above: Performed By: #### C BC #### [facility] [address] Platelet mean volume (Bld) [Entitic vol] 8.0 fL Normal 6.3-10.7 [facility] Comment on above: Performed By: #### C BC #### [facility] [address] [place] [address] [place] Platelets (Bld) [#/Vol] 298 10*3/uL Normal 150-450 [facility] Comment on above: Performed By: #### C BC #### [facility] [address] RBC (Bld) [#/Vol] 3.25 10*6/uL Low 3.60-5.00 [facility] Comment on above: Performed By: #### C BC #### [facility] [address] WBC (Bld) [#/Vol] 8.6 10*3/uL Normal 4.5-11.0 [facility] Comment on above: Performed By: #### C BC #### [address] Dipstick and Microscopicon 0 06-14-2021 Appearance (U) Clear Normal Clear [facility] Comment on above: Order Comment: Name Collection Type:: Clean-Voided Midstream Performed By: #### A DDONUAPLUS OBUDS #### [address] Bacteria,Urine None Seen Normal None Seen [facility] Comment on above: Order Comment: Name Collection Type:: Clean-Voided Midstream Performed By: #### A DDONUAPLUS OBUDS #### [place] [address] [place] Bilirubin,Urine Negative Normal Negative [facility] Comment on above: Order Comment: Name Collection Type:: Clean-Voided Midstream Performed By: #### A DDONUAPLUS OBUDS #### [address] Color (U) Yellow Normal Yellow [facility] Comment on above: Order Comment: Name Collection Type:: Clean-Voided Midstream Performed By: #### A DDONUAPLUS OBUDS #### [address] Glucose Ql (U) Normal Normal Normal [facility] Comment on above: Order Comment: Name Collection Type:: Clean-Voided Midstream Performed By: #### A DDSHENA OBUDS #### [place] [address] [place] Hyaline Casts,Urine 0-8 Normal 0-8 [facility] Comment on above: Order Comment: Name Collection Type:: Clean-Voided Midstream Result Comment: PERF ORMED BY: [place] [address] PATHOLOGIST CLINICAL REHABILITATION COORDINATOR STEPHANIE ROACH M.D. Performed By: #### A HARJIT OBUDS #### [address] Ketones Ql (U) Negative Normal Negative [facility] Comment on above: Order Comment: Name Collection Type:: Clean-Voided Midstream Performed By: #### A DDONCLINT OBUDS #### [address] Leukocyte esterase Test strip Ql (U) Negative Normal Negative [facility] Comment on above: Order Comment: Name Collection Type:: Clean-Voided Midstream Performed By: #### A DDONUAPLUS OBUDS #### [place] [address] [place] Nitrite,Urine Negative Normal Negative [facility] Comment on above: Order Comment: Name Collection Type:: Clean-Voided Midstream Performed By: #### A DDONUAPLUS OBUDS #### [place] [address] [place] Occult Blood,Urine 3+ High Negative [facility] Comment on above: Order Comment: Name Collection Type:: Clean-Voided Midstream Result Comment: PERF ORMED BY: [place] [address] PATHOLOGIST CLINICAL REHABILITATION COORDINATOR STEPHANIE ROACH M.D. Performed By: #### A HARJIT OBUDS #### [address] pH (U) 7.5 [pH] Normal 5.0-9.0 [facility] Comment on above: Order Comment: Name Collection Type:: Clean-Voided Midstream Performed By: #### A DDONUAPLUS, OBUDS #### [address] Protein,Urine Negative Normal Negative [facility] Comment on above: Order Comment: Name Collection Type:: Clean-Voided Midstream Performed By: #### A DDONUAPLUS, OBUDS #### [address] RBC,Urine 20-49 High 0-4 [facility] Comment on above: Order Comment: Name Collection Type:: Clean-Voided Midstream Performed By: #### A DDONUAPLUS, OBUDS #### [address] Specificy [place],Urine 1.009 Normal 1.001-1.030 [facility] Comment on above: Order Comment: Name Collection Type:: Clean-Voided Midstream Performed By: #### A DDONUAPLUS, OBUDS #### [address] Squamous Epithelial Cell,Urine 1-2 Normal 0-2 [facility] Comment on above: Order Comment: Name Collection Type:: Clean-Voided Midstream Performed By: #### A DDONUAPLUS, OBUDS #### [address] Urobilinogen,Urine Normal Normal Normal [facility] Comment on above: Order Comment: Name Collection Type:: Clean-Voided Midstream Performed By: #### A DDONUAPLUS, OBUDS #### [address] WBC,Urine None Seen Normal 0-4 [facility] Comment on above: Order Comment: Name Collection Type:: Clean-Voided Midstream Performed By: #### A DDONUAPLUS, OBUDS #### [address] [place] [address] [place] OB Urine Drug Screen (NO THC )on 06-14-2021 Amphetamine Screen,Urine Negative Normal Negative [facility] Comment on above: Performed By: #### A DDONUAPLUS, OBUDS #### [place] [address] [place] Barbiturate Screen,Urine Negative Normal Negative [facility] Comment on above: Performed By: #### A DDONUAPLUS, OBUDS #### [place] [address] [place] Benzodiazepines Screen,Urine Negative Normal Negative [facility] Comment on above: Performed By: #### A DDONUAPLUS, OBUDS #### [place] [address] [place] Cocaine Screen,Urine Negative Normal Negative [facility] Comment on above: Performed By: #### A DDONUAPLUS, OBUDS #### [place] [address] [place] Opiate Screen,Urine Negative Normal Negative [facility] Comment on above: Performed By: #### A DDONUAPLUS, OBUDS #### [address] Phencyclidine Screen, Urine Negative Normal Negative [facility] Comment on above: Result Comment: Thes e are unconfirmed results and should not be used for legal purposes. Drug Cut-Off Concentration: AMPH 1000 ng/mL NOLBERTO 200 ng/mL BIANCA 200 ng/mL COCM 300 ng/mL OP 300 ng/mL PCP 25 ng/mL PERFORMED BY: [place] [address] PATHOLOGIST CLINICAL REHABILITATION COORDINATOR STEPHANIE ROACH M.D. Performed By: #### A DDONUAPLUS, OBUDS #### [address] US OB 2nd/3rd Trimesteron OB 2nd/3rd [...] 4.6 cm (19 weeks, 6 days) Head Lsabkeobikwib96.3 cm (19 weeks, 0 days) Abdominal Xxfuavzwvhlum07.6 cm (19 weeks, 0 days) Femur Length 3.1 cm (19 weeks, 3 days) PresentationBreech Weight (g) by Irqsedltuw71.4%* These measurements result in an estimated date [...] by Ayo Jiménez on 04/18/2021 0921 Normal [facility] Technical Aide Coding Summaryon 04-07-2021 Coding Summary HTMLBase 64 RnlanzezREv2jGf+PG hlYWQ+LX0HWVBkE44h bDNzxU1HQ7lDPT0RSQ HXUSBWAL8DAJ8ldRS1 ATsbK0PnqxKs XvemsZTsUP57GJa5QH R5nUrnMVpmnB6zoWUi Q1v0IaSsWU57aG26LD xiUGIsDgO5RwSnmihw bWFy U5nvSlSyrXBzIaj+PH RhYmxlIHdpZHRoPScx MKBlVjIxeXdaJD2iOx 9yZGVyLWNvbGxhcHNl OiBj s5erJJNzITzqMA1uhS blO9XckCY6MLMlh8t7 Dm98fBP+OZIeYFR4tG ukMGcyd645DaKkz5nd IDM3 tAViOZbuRIG7Z17oc0 P5DERqICVqYSS6bLK1 uT6viPoorbmvH0DoeH NvVlY2ZTR1pIIvxL4t bGln kcyikA9bJdr+Q09ESU 4RQBTKWI5QMbn6E4Zx PjwvdHI+BQ12MGCfNH 74kGYdgDVnn3kkaYk3 JzEw DPDmOMP2fHuoQUajt3 LfPHOlP46wdVQsb0F0 IGNvbGxhcHNlOyBlbX F0wX2uXRvcwbqeo4ar dzsn Rpwtn0ssik68dK43J4 9zMQkwCAUgSXZ3ZNSf GOKzjPdolr3czT0zFw 8+RUoxj5chk6bwgYj1 IjIw MFZsnqRvrCuzVJF6e2 ByYs03F6YxdKxaf8Fd Txd2si61mYZen1P7nW Q9ZKvsKIFgoO4gBXon ZnQ6 UXNiHoJhoR30wRCdOA dfIj1qmYrilNjyTH1h NFQdafxqTPJyyH7qYG CguAEkfCvmTM2tGMMq bjtm h825CgWkFCO8GYOjmD UvG8MbzK6gLhSoAQVa GQGlY0SosNJxNYswG1 58RYxxSxL9LYGagjNe Y2Fs HSKzfYnjUwE3p6Q4Im 3Eu8CuizsjLTA9FFhk ISSqTrGmYhLzWzB4U9 IsTan9MBFjbJjpWM0p J3Bh KJRbzhebfskukOA5KG YuCQQvkB43qBZnGGmy Mc2ky1C2x460MBBcHA HqfD96Wj9gkUgzIGFg dCBU gB6bzztdl7ujvqoaKf ArIORqIBt0CGt2GSXl gVpdOgFaLCX0DuA1QZ J8zMIusC1guQwwfaqb dG9w Oyc+W57vbG4cWBR7IU Y1pcknUDBeksLkGJ49 EG13U8DpJcwvjOMagV U+BAAxnwIjpLssJF5v YmFj d6bsf5ShNNodY7RiZV HlWDgqIqn1YFPrTPL5 gHJ8gD0rMRTfAQuvw6 R2oEF9G9VnkpHoqx1e b2xs ZFZtUIzlB13rePYrw4 S9HKXqkYF0NFJyiRmp QgVseJ11Jzp+PGNvbG nus0CsHiqxo0pmm2fw dGg9 IjMwJSIgdmFsaWduPS F2o6RaTq16R97wTFzz ZHRoPSIxNSUiIHZhbG esgt4dxW3yGx5+PGNv bCB3 pEP3qG6fCBRuQeP7PC idU986XjQgtBPrUoue p6jjy6eyeKc0OaTpVV DlweAcbHdgTKC4i3Hn Lz48 W81yYHehVTAeVEOlSX QzAITdlCnlfn1ahZ0a Ii8+PM6de1aabl72wX 48dHI+YXGmSXM1zBob PSdw LHEjqT6vAFbhEyU0BW AlAdIiyT83pZKmNLum Dl3dbEvcnAymUG7vBM Kecsenl976WnTkn0me IDEw uJSfKCnrCIE2W88aj5 E0ZGLvMWJnJMG5bHG1 bJ9tyJogmpcxcXDzmL sgdmVydGljYWwtYWxp Z246 IHRvcDsnPlBhdGllbn GtJtTbYKs6I0GmUes0 MFWjxSmrDK4dfLGhSK ltWl8anVgklJkaAP2l NTBp xdxhw747FvRoc4yzAM XptLLjTCuaJJF2C24b f4C5NCLeMXJrKCT5bZ J3xK1aeGglkibidKYq dDsg dmVydGljYWwtYWxpZ2 46IHRvcDsnPkJpcnRo WJNzjYO0MQ12BG41nD Tiv9R0aTT9A5GvIMAr bmct gnaoyRJ5PGBhTAKgkL 76Vp0olWikBu0sXAFw PHR8RBJztJJeS2DaeF 4iXiAiBEVtAMVoP0Uy eHQt NLhoN185XWfmVtZ1JW JlfdMvR1TgLKLzhAwc OfH6x0H6Df3NM1D2QF 48RV35vDAou3Y6cOK5 J3Bh PEEjpjooocyhuZT7QJ XoPNEkuJ96By1pgDfq Wl9oSPThYHD8VMZgiW GxQ1VrbH3lPfUzHONs MDAw B5JwiPWsZTkoE427UR nsYiJ1CAKupeJzC4Wk HDJckSqoQsR8g0Z9Ke 6OOKk8LX88KM60nLHu c3R5 hFX9K6EaSGSplersja yvaXF9QRRwOCNsfP84 Tb3rfJumAn6aRRTqXY M0TKPlhKLuZ2CkcP3z OiAj WENdJDLfO6RybATgSI ofD515TQtmHcI6KHBt ixEsA3TnWALdbCdrUg O4r0H2Gx3SECDaVN70 IFR5 xPP9YS18VM23N0JtVq wvdGFibGU+PHRhYmxl IHdpZHRoPScxMDAlJy LcyQokDU5lCe3nFXFa LWNv vYwxlPVzLjWpd8vaHI FoQZobFF2auAyrT9Bl bGV2SBEqk9r1Xr19Y3 4fZ3ZocMG+PGNvbCB3 aWR0 bB9pZfOsDrE5BGjzT5 08GhUjtKZjMkbjh8rn j0wahPr5LmR2ICNuzf IhuLjlUXZ0a9CyPt74 Y29s IHdpZHRoPSIxNSUiIH HyyBdnkm2piI2vZe4+ HWJldHS8hWQ3sZ5kTl ElNoC4WEyoK682RiYh cCIv Iwmda3hks9pxcJf6Oy IwJSIgdmFsaWduPSJ0 t0CsSv12K5HmyLtrw7 NdWrp6be94aRWqe6B8 bGU9 T9XiICCzxxwfpYPuaO qfNT8aYOOfpyasMXMa kY3oUHOlF3b4GpVdEr M8INcaU9AjbmX7SUKw cHQg WHalTQF0B85fl4G6PP UxRXZgHXE8hLH0aG1r bGlnbjogbGVmdDsgdm HipNnsOCuvYUemA077 IHRv lRnmXDAiuX0wKDSvaX VmyPtnFX5qNHJcvzcv PaXNKtNXGavpLB5SXP TDBFT7C0YcNsf9ZROi dHls BQ1umOFxFXcvKk3coA frzRtyRW3oJCLlferj FKBsiJ1tJGVvvFYbeY bdST2vWOBjpgwnk462 OiAx NKL6YPUrnTUqC7PxtJ 8pCwSfFAXaPFPeR9Lw aSEmUZfzU375ONvpXk W1YDVidxUdT2QvYAKt aWdu OwX0r1P0Lm4hIf7dDm 8nEOtnRT65KZ13eYDv d1O6eZV6V0FlKYOnct hxhomhkFC5HLMjLWZe aW47 aYGbEHjsSr1ef1K3m4 71CWUkOZUolL67Ck1w bPdrMFGgiNYBtG1mnt wld7covkkfUqOcCOPq MDt0 MTa3ROXgzNfuReXiHE A5DdO4FEP5dXFunN7h vMomrsumcK7aOzl+Mz VpFFXuboM3V5QqSqy5 ZCBz bVktLW7btLHlERwdEr 3hhXburIwyIB8xDTGh tameZYDprY8vURNmzI QjxNsyPG6gIACcppyo b250 RdNvBPO4TGUgsTVvP6 ShoU7gRoSdZEPcDAYs C9JioRNgEMwvP058FG ahQfG6XAZleePkU7Wt LWFs lIdrZpI8y2H6Oq7TCC 5QHVZ8H0HlNfi7ONFz iBecKA8kbWVqYSubMk 2ktUafdSfzRG6vGIIp bjtw CZCkgO2aLLTfmBGqlF ogML6oXDMicxgrf070 GgUiVOX8VIRilANtN5 GfkH6eRdXgTVWdWUNs O3Rl gTVzFMwaY189MGdzSa A4UHSxsdEcG3IjBOFc hXyzOhG0u1S2Qo5TLF wvdGQ+EB16zo99T0Ta Ymxl Jrm1VTQjAAL5pAH7iH 4wNUKaHZpuc2I7xFK0 P5OeqgRjii6iv8yyVA JlIDzkT02keGVyn7A7 IGVt gRT7IPJmnQefFvDocI 93Oyc+SUGisRkbv4En Bvttg3aaj2tnlEc8Bf MwJSIgdmFsaWduPSJ0 b3Ai Jt58O42mOJorAHHoUK EkGAIzMTUgbIvmwl1o dO9pTr0+RYFjzOL1yQ H4wQ7cEiRdRcJ8IKgq Z249 BzDdiGGrHxlic8gxq3 gilCr4NlLpORTeczBl uUajFAX3c4HmKm56D6 GslOrnt4VaRgp2yt30 dGQg p2L9sKJ9B0KvTQOcud bdyDNtlGjjBU2fKPGh wsesZGTjqS5uXZSwF6 g8TcVcMcD6YSgcW9Fc bnQ6 IGJvbGQgMTBwdCBUaW 5fwobzt2lyzinlZsGb VGGuJJl8TEi9ZGGefA wbGuPlCCQ2AbM9ZQV0 aWNh zP5fgGxfxgfyqV9wQk c+VJz9r0qjeYXzFE9k zGU6MK22HV90uFCzk6 E4pJH8D2AaOZLjhgjl cmln dKC4LXSrFXBbtQ31Gy 2gbUboSf4fOPPmKZT2 DRGtjKYmY0BisK4rHp FnHOQsDAYrH7SyuDSu YWxp P669ESpnKgU9XYKttj IxT9BhRJBmoEkdNhQ9 e2Y0Ok6IXP91TM17XP 48rLOma9P0rIZ6W5Ny ZGRp jyeyohkxdEI7SSUcLP GsfY62Nh9yyQasLx9w RGVhGLF3OHCugAQwD5 PlrE6wBnLvUWQfGLIr O3Rl kRYiOKqtX627XIuyFd X6WLCggqFiU1SoJGKu fMoyBpC2d2Z4Vj4MOn 36KN98PV06pNPrz0A2 bGU9 T2FmIRMrppglybepqP H9QQYiDDJyrU83Vd1e zHitBp2hBFUnOJD8VI IqlUGhE1GqsL1rQcId MDAw TIIhR5GxsIHwNHleF7 36ZVvsLiO3IQYtatMk X1IvLGRmaNzmVpG0o1 Z4Lp7VLCpucza4P5Vn Pjwv dHI+AW74WRNrXC39tQ StgFIcy5hqsCe8DqBg ZQLyWXC3hDtiWEkjq3 ErCKXeJ13huEKyp5R3 IGNv bGx (more content not included)... [facility] Consent Formson 04-01-2021 Consent Forms [id number]#[id number] [facility] Provider Orderson 04-01-2021 Provider Orders [id number]#1.00OTGTIFF [facility] COVID Quick Testingon 2021 Result Positive [employer] Other HERPES SIMPLEX VIRUS 1/2 DNA PCRon 11-11-2020 HSV-1 DNA Negative Normal Negative [facility] Comment on above: Performed By: #### C BC #### [facility] [address] [place], [place] [address] Sunshine Carlos HSV-2 DNA Positive Abnormal Negative [facility] Comment on above: Result Comment: This test was developed and its performance characteristics determined by [employer]. It has not been cleared or approved by the [place] Food and Drug Administration. The FDA has determined that such clearance or approval is not necessary. This test is used for clinical purposes. It should not be regarded as investigational or research. Performed By: #### C BC #### [facility] [address] [place] [address] Sunshine Carlos CULTURE URINEon 11-10-2020 CULTURE URINE [...] F Tetracycline <=0.25 S F Normal [facility] Comment on above: Performed By: #### C BC #### [facility] [address] [place] [address] Sunshine Carlos CHLAMYDIA/GONOCOCCUS TINA (SW AB/URINE/PAPon 11-09-2020 Chlamydia trachomatis, TINA Negative Normal Negative [facility] Comment on above: Performed By: #### C T/NGNA #### [facility] [address] [place], [place] [address] Sunshine Carlos Neisseria gonorrhoeae, TINA Negative Normal Negative [facility] Comment on above: Performed By: #### C T/NGNA #### [facility] [address] [place], [place] [address] Sunshine Carlos Covid-19 PCR (CVDTB)on 10-18 SARS-CoV-2 (COVID-19) RNA TINA+probe Ql (Unsp spec) Not detected Normal NOT DETECTED [facility] Comment on above: Result Comment: This test is not yet approved or cleared by the [place] FDA. When there are no FDA-approved or cleared tests available, and other criteria are met, FDA can make tests available under an emergency access mechanism called an Emergency Use Authorization (EUA). The EUA for this test is supported by the [place] of Health and Human Service's (HHS's) declaration [...] Performed By: #### C VDAGS, CVDTBH #### [facility] [address] [place] [address] Sunshine Breanna ER URINE PROFILEon 1 Bilirubin Ql (U) Negative Normal NEGATIVE [facility] Comment on above: Performed By: #### C BC #### [facility] [address] [place] [address] Sunshine Breanna Clarity (U) CLEAR Normal CLEAR [facility] Comment on above: Performed By: #### C BC #### [facility] [address] [place] [address] Sunshine Breanna Color (U) LT. YELLOW Normal YELLOW [facility] Comment on above: Performed By: #### C BC #### [facility] [address] [place] [address] Sunshine Breanna ERUAHD A micrscopic examination will be performed if indicated. Normal [facility] Comment on above: Performed By: #### C BC #### [facility] [address] [place] [address] Sunshine Breanna Glucose Ql (U) Negative Normal NEGATIVE [facility] Comment on above: Performed By: #### C BC #### [facility] [address] [place] [address] Sunshine Breanna Hemoglobin Ql (U) LARGE Abnormal NEGATIVE [facility] Comment on above: Performed By: #### C BC #### [facility] [address] [place] [address] Sunshine Breanna Ketones Ql (U) Negative Normal NEGATIVE [facility] Comment on above: Performed By: #### C BC #### [facility] [address] [place], [place] [id number] Sunshine Breanna LEUKOCYTES Negative Normal NEGATIVE [facility] Comment on above: Performed By: #### C BC #### [facility] [address] [place] [address] Sunshine Breanna Nitrite Ql (U) Negative Normal NEGATIVE [facility] Comment on above: Performed By: #### C BC #### [facility] [address] [place] [address] Sunshine Breanna pH (U) 5.5 [pH] Normal 5-9 [facility] Comment on above: Performed By: #### C BC #### [facility] [address] [place] [address] Sunshine Breanna SPEC GRAVITY >=1.030 Abnormal 1.005-<=1.02 5 [facility] Comment on above: Performed By: #### C BC #### [facility] [address] [place] [address] Sunshine Breanna UA PROTEIN Negative Normal NEGATIVE/ TRACE [facility] Comment on above: Performed By: #### C BC #### [facility] [address] [place] [address] Sunshine Breanna UR MICRO IND INDICATED Normal [facility] Comment on above: Performed By: #### C BC #### [facility] [address] [place] [address] Sunshine Breanna Urobilinogen Qn (U) 0.2 {Braden'U}/dL Normal 0.2 - 1. 0 [facility] Comment on above: Performed By: #### C BC #### [facility] [address] [place] [address] Sunshine Breanna URon 11-08-2020 , QUAL Negative Normal NEGATIVE [facility] Comment on above: Performed By: #### C BC #### [facility] [address] [place] [id number] Sunshine Carlos STREPT SCREENon 11-08-2020 STREP SCREEN A Positive Abnormal NEGATIVE [facility] Comment on above: Performed By: #### C BC #### [facility] [address] [place], [place] [id number] Sunshine Carlos SYMPTOMATIC COVID-19 ANTIGEN on 11-08-2020 EUA Statement SEE BELOW Normal [facility] Comment on above: Result Comment: This test [...] Performed By: #### C JAYMIES, CVDTB #### [facility] [address] [place], [place] [id number] Sunshine Carlos SARS-CoV-2 (COVID-19) RNA TINA+probe Ql (Unsp spec) Negative Normal NEGATIVE [facility] Comment on above: Result Comment: CONF IRMATION BY PCR PENDING PER CDC GUIDELINES/ SYMPTOMATIC PATIENT. Performed By: #### C VDAGS, CVDTBH #### [facility] [facility] [address] [place], [place] [id number] Sunshine Carlos URINE MICROSCOPIC ONLYon AMORPHOUS CRYSTALS FEW Normal [facility] Comment on above: Performed By: #### C BC #### [facility] [address] [place], [place] [address] Sunshine Carlos BACTERIA SMALL Abnormal NONE SEEN [facility] Comment on above: Performed By: #### C BC #### [facility] [address] [place] [address] Sunshine Breanna Bacteria identified Cx Nom (U) INDICATED Normal [facility] Comment on above: Performed By: #### C BC #### [facility] [address] [place], [place] [address] Sunshine Breanna CAST NONE SEEN Normal NONE SEEN [facility] Comment on above: Performed By: #### C BC #### [facility] [address] [place] [address] Sunshine Breanna Crystals LM Nom (Urine sed) SEEN Abnormal NONE SEEN [facility] Comment on above: Performed By: #### C BC #### [facility] [address] [place], [place] [address] Sunshine Breanna Epithelial cells LM Ql (Urine sed) MODERATE Abnormal NONE SEEN /RARE [facility] Comment on above: Performed By: #### C BC #### [facility] [address] [place] [address] Sunshine Breanna MUCOUS MODERATE Abnormal NONE SEEN [facility] Comment on above: Performed By: #### C BC #### [facility] [address] [place], [place] [address] Sunshine Breanna RBC 2-5 Abnormal 0-2 [facility] Comment on above: Performed By: #### C BC #### [facility] [address] [place], [place] [address] Sunshine Breanna WBC 5-10 Abnormal NONE SEEN [facility] Comment on above: Performed By: #### C BC #### [facility] [address] [place], [place] [address] Sunshine Breanna US SINGLE QUAD RT UPPERon [...] EDMUNDO GUZMAN Date: 2020-08-19 15:23 Normal [facility] AMYLASEon 08-17-2020 Amylase [Catalytic activity/Vol] 49 U/L Normal 31-110 [facility] Comment on above: Performed By: #### C BC #### [facility] [address] [place] [address] Sunshine Breanna CBC AUTO DIFFon 08-17-2020 BASO # 0.0 103/ul Normal 0.0-0.1 [facility] Comment on above: Performed By: #### C BC #### [facility] [address] [place] [address] Sunshine Breanna Basophils/100 WBC (Bld) 0.6 % Normal 0.2-2.0 [facility] Comment on above: Performed By: #### C BC #### [facility] [address] [place] [address] Sunshine Breanna EO # 0.1 103/ul Normal 0.0-0.7 [facility] Comment on above: Performed By: #### C BC #### [facility] [address] [place] [address] Sunshine Breanna Eosinophils/100 WBC (Bld) 1.3 % Normal 0.9-7.0 [facility] Comment on above: Performed By: #### C BC #### [facility] [address] [place] [address] Sunshine Breanna Erythrocyte distribution width (RBC) [Ratio] 13.0 % Normal 11.0-15.0 [facility] Comment on above: Performed By: #### C BC #### [facility] [address] [place] [address] Sunshine Breanna Hematocrit (Bld) [Volume fraction] 39.1 % Normal 36.0-48.0 [facility] Comment on above: Performed By: #### C BC #### [facility] [address] [place] [address] Sunshine Breanna Hemoglobin (Bld) [Mass/Vol] 13.2 g/dL Normal 12.0-16.0 [facility] Comment on above: Performed By: #### C BC #### [facility] [address] [place] [address] Sunshine Breanna IG # 0.01 10e3/ul Normal 0.00-0.03 [facility] Comment on above: Performed By: #### C BC #### [facility] [address] [place] [address] Sunshine Breanna IG % 0.1 % Normal 0.0-0.5 [facility] Comment on above: Performed By: #### C BC #### [facility] [address] [place] [address] Sunshine Breanna LYMPH # 2.4 103/ul Normal 1.2-3.8 [facility] Comment on above: Performed By: #### C BC #### [facility] [address] [place] [address] Sunshine Carlos Lymphocytes/100 WBC (Bld) 33.5 % Normal 20.5-60.0 [facility] Comment on above: Performed By: #### C BC #### [facility] [address] [place] [address] Sunshine Gonzalezen MANUAL DIFF REQ NO Normal [facility] Comment on above: Performed By: #### C BC #### [facility] [address] [place], [place] [address] Sunshine Breanna MCH (RBC) [Entitic mass] 30.6 pg Normal 26.7-34.0 [facility] Comment on above: Performed By: #### C BC #### [facility] [address] [place], [place] [address] Sunshine Carlos MCHC (RBC) [Mass/Vol] 33.8 g/dL Normal 29.9-35.2 [facility] Comment on above: Performed By: #### C BC #### [facility] [address] [place], [place] [address] Sunshine Carlos MCV (RBC) [Entitic vol] 90.7 fL Normal 81.0-99.0 [facility] Comment on above: Performed By: #### C BC #### [facility] [address] [place], [place] [address] Sunshinevinita Gonzalezen MONO # 0.3 103/ul Normal 0.3-0.8 [facility] Comment on above: Performed By: #### C BC #### [facility] [address] [place], [place] [address] Sunshine Carlos Monocytes/100 WBC (Bld) 4.1 % Normal 1.7-12.0 [facility] Comment on above: Performed By: #### C BC #### [facility] [address] [place], [place] [address] Sunshine Gonzalezen NEUT # 4.2 103/ul Normal 1.4-6.5 [facility] Comment on above: Performed By: #### C BC #### [facility] [address] [place], [place] [address] Sunshine Carlos Neutrophils/100 WBC (Bld) 60.4 % Normal 43.0-75.0 [facility] Comment on above: Performed By: #### C BC #### [facility] [address] [place], [place] [address] Sunshine Carlos Platelet mean volume (Bld) [Entitic vol] 10.7 fL Normal 9.5-13.5 [facility] Comment on above: Performed By: #### C BC #### [facility] [address] [place], [place] [address] Sunshine Breanna PLT 321 103/ul Normal 150-450 [facility] Comment on above: Performed By: #### C BC #### [facility] [address] [place], [place] [address] Sunshine Breanna RBC 4.31 106/ul Normal 4.20-5.40 [facility] Comment on above: Performed By: #### C BC #### [facility] [address] [place] [address] Sunshine Carlos WBC 7.0 103/ul Normal 4.0-11.0 [facility] Comment on above: Performed By: #### C BC #### [facility] [address] [place], [place] [address] Sunshine Carlos LIPASEon 08-17-2020 Lipase [Catalytic activity/Vol] 97.0 U/L Normal 23.0-300.0 [facility] Comment on above: Performed By: #### T CANDE, CMP, LIPA, JANINE #### [facility] [address] [place] [address] Sunshine Carlos PROF 14(COMP METB)on 021 Albumin [Mass/Vol] 3.5 g/dL Normal 3.5-5.0 [facility] Comment on above: Performed By: #### T CANDE, CMP, LIPA, JANINE #### [facility] [address] [place] [address] Sunshine Carlos Albumin/Globulin [Mass ratio] 0.8 {ratio} Normal [facility] Comment on above: Performed By: #### T CANDE, CMP, LIPA, JAINNE #### [facility] [address] [place] [address] Sunshinevinita Carlos ALP [Catalytic activity/Vol] 64 U/L Normal 38-126 [facility] Comment on above: Performed By: #### T CANDE, CMP, LIPA, JANINE #### [facility] [address] [place] [address] Sunshine Carlos ALT [Catalytic activity/Vol] 12 U/L Normal 9-52 [facility] Comment on above: Performed By: #### T CANDE, CMP, LIPA, JANINE #### [facility] [address] [place] [address] Sunshine Breanna Anion gap [Moles/Vol] 14.9 mmol/L Normal [facility] Comment on above: Performed By: #### T CANDE, CMP, LIPA, JANINE #### [facility] [address] [address] Sunshine Breanna AST [Catalytic activity/Vol] 9 U/L Critically low 14-36 [facility] Comment on above: Performed By: #### T CANDE, CMP, LIPA, JANINE #### [facility] [address] [address] Sunshine Breanna Bilirubin [Mass/Vol] 0.2 mg/dL Normal 0.2-1.3 [facility] Comment on above: Performed By: #### T CANDE, CMP, LIPA, JANINE #### [facility] [address] [place] [address] Sunshine Breanna Calcium [Mass/Vol] 8.9 mg/dL Normal 8.4-10.2 [facility] Comment on above: Performed By: #### T CANDE, CMP, LIPA, JANINE #### [facility] [address] [place] [address] Sunshine Breanna Chloride [Moles/Vol] 108 mmol/L Critically high 98-107 [facility] Comment on above: Performed By: #### T CANDE, CMP, LIPA, JANINE #### [facility] [address] [place] [address] Sunshine Breanna CO2 [Moles/Vol] 23.8 mmol/L Normal 22.0-30.0 [facility] Comment on above: Performed By: #### T CANDE, CMP, LIPA, JANINE #### [facility] [address] [address] Sunshine Breanna Creatinine [Mass/Vol] 0.81 mg/dL Normal 0.52-1.04 [facility] Comment on above: Performed By: #### T CANDE, CMP, LIPA, JANINE #### [facility] [address] [place] [address] Sunshine Breanna EGFR-AF IVORIAN >60 Normal >=60 [facility] Comment on above: Performed By: #### T CANDE, CMP, LIPA, JANINE #### [facility] [address] [address] Sunshine Breanna EGFR-NON AF IVORIAN >60 Normal >=60 [facility] Comment on above: Performed By: #### T CANDE, CMP, LIPA, JANINE #### [facility] [address] [address] Sunshine Breanna Globulin (S) [Mass/Vol] 4.4 g/dL Normal [facility] Comment on above: Performed By: #### T CANDE, CMP, LIPA, JANINE #### [facility] [address] [address] Sunshine Breanna Glucose [Mass/Vol] 92 mg/dL Normal 74-106 [facility] Comment on above: Performed By: #### T CANDE, CMP, LIPA, JANINE #### [facility] [address] [place] [address] Sunshine Breanna Potassium [Moles/Vol] 3.7 mmol/L Normal 3.4-5.0 [facility] Comment on above: Performed By: #### T CANDE, CMP, LIPA, JANINE #### [facility] [address] [place] [address] Sunshine Breanna Protein [Mass/Vol] 7.9 g/dL Normal 6.1-8.2 [facility] Comment on above: Performed By: #### T CANDE, CMP, LIPA, JANINE #### [facility] [address] [place] [address] Sunshine Breanna Sodium [Moles/Vol] 143 mmol/L Normal 137-145 [facility] Comment on above: Performed By: #### T CANDE, CMP, LIPA, JANINE #### [facility] [address] [place] [address] Sunshine Breanna Urea nitrogen [Mass/Vol] 14.0 mg/dL Normal 7.0-17.0 [facility] Comment on above: Performed By: #### T CANDE, CMP, LIPA, JANINE #### [facility] [address] [place] [address] Sunshine Breanna Urea nitrogen/Creatinine [Mass ratio] 17.3 mg/mg Normal [facility] Comment on above: Performed By: #### T CANDE, CMP, LIPA, JANINE #### [facility] [address] [id number] Sunshine Breanna PREG QUANT HCGon 06-02-2020 HCG QUANT 14 mIU/mL Normal [facility] Comment on above: Performed By: #### C IVELISSE, CVDTB #### [facility] [address] [place] [address] Sunshine Breanna HCG RANGE SEE BELOW Normal [facility] Comment on above: Result Comment: 5-50 0-1 WEEK 40-300 1-2 WEEKS 100-1,000 2-3 WEEKS 500-6,000 3-4 WEEKS 5,000-200,000 1-2 MONTHS 10,000-100,000 2-3 MONTHS 3,000-50,000 2ND TRIMESTER 1,000-50,000 3RD TRIMESTER Performed By: #### C IVELISSE, CVDTB #### [facility] [address] [place] [address] Sunshine Breanna PREG QUANT HCGon 05-20-2020 HCG QUANT 13 mIU/mL Normal [facility] Comment on above: Performed By: #### C BC #### [facility] [address] [place], [place] [address] Sunshine Breanna HCG RANGE SEE BELOW Normal [facility] Comment on above: Result Comment: 5-50 0-1 WEEK 40-300 1-2 WEEKS 100-1,000 2-3 WEEKS 500-6,000 3-4 WEEKS 5,000-200,000 1-2 MONTHS 10,000-100,000 2-3 MONTHS 3,000-50,000 2ND TRIMESTER 1,000-50,000 3RD TRIMESTER Performed By: #### C BC #### [facility] [address] [place], [place] [address] Sunshine Breanna PREG QUANT HCGon 05-06-2020 HCG QUANT 20 mIU/mL Normal [facility] Comment on above: Performed By: #### P REGQNT #### [facility] [address] [place], [place] [address] Sunshine Breanna HCG RANGE SEE BELOW Normal [facility] Comment on above: Result Comment: 5-50 0-1 WEEK 40-300 1-2 WEEKS 100-1,000 2-3 WEEKS 500-6,000 3-4 WEEKS 5,000-200,000 1-2 MONTHS 10,000-100,000 2-3 MONTHS 3,000-50,000 2ND TRIMESTER 1,000-50,000 3RD TRIMESTER Performed By: #### P REGQNT #### [facility] [address] [id number] Sunshine Breanna PREG QUANT HCGon 04-29-2020 HCG QUANT 21 mIU/mL Normal [facility] Comment on above: Performed By: #### P REGQNT #### [facility] [address] [place] [address] Sunshine Breanna HCG RANGE SEE BELOW Normal [facility] Comment on above: Result Comment: 5-50 0-1 WEEK 40-300 1-2 WEEKS 100-1,000 2-3 WEEKS 500-6,000 3-4 WEEKS 5,000-200,000 1-2 MONTHS 10,000-100,000 2-3 MONTHS 3,000-50,000 2ND TRIMESTER 1,000-50,000 3RD TRIMESTER Performed By: #### P REGQNT #### [facility] [address] [place] [address] Sunshine Breanna ABO AND RH TYPEon 04-22-2020 ABO and Rh group Nom (Bld) ABO Rh Typing O Rh Positive Normal [facility] Comment on above: Performed By: #### C BC #### [facility] [address] [place], [place] [address] Sunshine Breanna PREG QUANT HCGon 04-22-2020 HCG QUANT 37 mIU/mL Normal [facility] Comment on above: Performed By: #### P REGQNT #### [facility] [address] [place], [place] [address] Sunshine Breanna HCG RANGE SEE BELOW Normal [facility] Comment on above: Result Comment: 5-50 0-1 WEEK 40-300 1-2 WEEKS 100-1,000 2-3 WEEKS 500-6,000 3-4 WEEKS 5,000-200,000 1-2 MONTHS 10,000-100,000 2-3 MONTHS 3,000-50,000 2ND TRIMESTER 1,000-50,000 3RD TRIMESTER Performed By: #### P REGQNT #### [facility] [address] [place], [place] [address] Sunshine Carlos ED Note-Physicianon 10-16-19 ED Note-Physician [id number] 0EC#[id number]:127 Normal [facility] Chlam and gonorrhea: Amp, Ur ine -UHEon 01-12-2017 Chlam and gonorrhea: Amp, Urine -UHE Negative Negative THIS TEST WAS PERFORMED USING A REAL TIME PCR ASSAY. Normal [facility] Comment on above: Performed By: #### R NABU ####[address] [address] Beta HCG (Qual), Urine - MCH on 01-09-2017 HCG.beta subunit ( test) Ql (U) Positive Abnormal Negative [facility] Comment on above: Performed By: #### H CGUMD, UR1MD ####[facility] [place], [place] [address] Beta HCG, quant, S - MCHon 1 Beta HCG, quant, S - MCH 96332.0 mIU/mL Normal [facility] Comment on above: Result Comment: FEMA LE GESTATIONAL AGERESULTS <10 ARE CONSIDERED NEGATIVE4 WEEKS 4700-223505 mIU/mL5 WEEKS 3660-704202 mIU/mL6 WEEKS 07369-034554 mIU/mL7 WEEKS 68867-653302 mIU/mL8 WEEKS 91235-131085 mIU/mL9 WEEKS 39108-232145 mIU/mL10 WEEKS 01797-160600 mIU/mL11 WEEKS 6480-094456 mIU/ml12 WEEKS 6740-505969 mIU/mL13-27 WEEKS 8200-111675 mIU/mL28-40 WEEKS 2320-96258 mIU/mL Performed By: #### C BCMD, PTPTMD, TYSCMD, QHCGMD ####[address] [place], [place] [address] CBC, ELECTRONIC DIFF, PLATEL ET - MCHon 01-09-2017 Absolute Basophil 0.0 K/uL Normal 0.0-0.23 [facility] Comment on above: Performed By: #### C BCMD, PTPTMD, TYSCMD, QHCGMD ####[facility] [place], [place] [address] Absolute Grans 5.9 K/uL Normal 1.8-7.7 [facility] Comment on above: Performed By: #### C BCMD, PTPTMD, TYSCMD, QHCGMD ####[address] [place], [place] [address] Basophils/100 WBC Auto (Bld) 0.5 % Normal 0-2 [facility] Comment on above: Performed By: #### C BCMD, PTPTMD, TYSCMD, QHCGMD ####[address] [place], [place] [address] Eosinophils 0.1 10*3/uL Normal 0.0-0.7 [facility] Comment on above: Performed By: #### C BCMD, PTPTMD, TYSCMD, QHCGMD ####[address] [place], [place] [address] Eosinophils/100 leukocytes 1.0 % Normal 0-5.0 [facility] Comment on above: Performed By: #### C BCMD, PTPTMD, TYSCMD, QHCGMD ####[address] [place], [place] [address] Erythrocytes (RBC) 13.8 % Normal 11.5-14.5 [facility] Comment on above: Performed By: #### C BCMD, PTPTMD, TYSCMD, QHCGMD ####[address] [address] [employer] 64.6 % Normal 50-70 [facility] Comment on above: Performed By: #### C BCMD, PTPTMD, TYSCMD, QHCGMD ####[address] [place], [place] [address] Hematocrit (HCT) 34.5 % Low 35.0-45.0 [facility] Comment on above: Performed By: #### C BCMD, PTPTMD, TYSCMD, QHCGMD ####[facility] [place], [place] [address] Hemoglobin mass conc (Bld) 31.0 pg Normal 27.0-34.0 [facility] Comment on above: Performed By: #### C BCMD, PTPTMD, TYSCMD, QHCGMD ####[address] [place], [place] [address] Hemoglobin mass conc (Bld) 11.7 g/dL Normal 11.7-15.5 [facility] Comment on above: Performed By: #### C BCMD, PTPTMD, TYSCMD, QHCGMD ####[address] [place], [place] [address] Lymphocytes 2.6 10*3/uL Normal 1.0-4.8 [facility] Comment on above: Performed By: #### C BCMD, PTPTMD, TYSCMD, QHCGMD ####[address] [address] Lymphocytes/100 leukocytes 28.7 % Normal 22.0-44.0 [facility] Comment on above: Performed By: #### C BCMD, PTPTMD, TYSCMD, QHCGMD ####[address] [address] MCH 3.78 M/uL Low 3.8-5.1 [facility] Comment on above: Performed By: #### C BCMD, PTPTMD, TYSCMD, QHCGMD ####[address] [address] MCH 9.1 K/uL Normal 4.5-11.0 [facility] Comment on above: Performed By: #### C BCMD, PTPTMD, TYSCMD, QHCGMD ####[address] [address] MCV 91.0 fL Normal 81.0-100.0 [facility] Comment on above: Performed By: #### C BCMD, PTPTMD, TYSCMD, QHCGMD ####[address] [address] Monocytes 0.5 10*3/uL Normal 0.0-0.9 [facility] Comment on above: Performed By: #### C BCMD, PTPTMD, TYSCMD, QHCGMD ####[address] [address] Monocytes/100 leukocytes 5.2 % Normal 0-7.0 [facility] Comment on above: Performed By: #### C BC, PTPTMD, TYSCMD, QHCGMD ####[address] [place], [place] [address] Platelet mean volume (PMV) 8.3 fL Normal 7.5-11.2 [facility] Comment on above: Performed By: #### C BC, PTPTMD, TYSCMD, QHCGMD ####[facility] [place], [place] [address] Platelets 281 10*3/uL Normal 150-400 [facility] Comment on above: Performed By: #### C BC, PTPTMD, TYSCMD, QHCGMD ####[address] [place], [place] [address] ED PROVIDERon 01-09-2017 [facility] NOTES Normal [facility] Coding OP/ED Report Normal [facility] OSIMCACENCSUMon 01-09-2017 [facility] CAC Encounter Summary Report Normal [facility] PT*PTT - MCHon 01-09-2017 aPTT 33 s Normal 24.6-35.9 [facility] Comment on above: Performed By: #### C BC, PTPTMD, TYSCMD, QHCGMD ####[address] [place], [place] [address] INR Coag RelTime (Bld) 1.1 {INR} Normal 0.87-1.15 [facility] Comment on above: Performed By: #### C BC, PTPTMD, TYSCMD, QHCGMD ####[facility] [place], [place] [address] MCH 13.3 sec Normal 11.5-14.3 [facility] Comment on above: Performed By: #### C BC, PTPTMD, TYSCMD, QHCGMD ####[address] [place], [place] [address] TYPE AND SCREEN - MCHon 12-18 MCH ABO/RH(D) - MCH: O POSITIVE ANTIBODY SCREEN - MCH: Negative Normal [facility] Comment on above: Performed By: #### C BCMD, PTPTMD, TYSCMD, QHCGMD ####[address] [place], [place] [address] Urinalysis reflex to Cult - MCHon 01-09-2017 COMMENT URINE None Normal [facility] Comment on above: Performed By: #### H CGUMD, UR1MD ####[address] [place], [place] [address] Squamous Epithelial 2+ /HPF Normal [facility] Comment on above: Performed By: #### H CGUMD, UR1MD ####[address] [place], [place] [address] Urine, bacteria in sediment Absent Normal Absent [facility] Comment on above: Performed By: #### H CGUMD, UR1MD ####[address] [place], [place] [address] Urine, erythrocytes in sediment by area 0-2 Normal 0-2 [facility] Comment on above: Performed By: #### H CGUMD, UR1MD ####[address] [place], [place] [address] Urine, leukocytes in sedmiment 0-5 Normal 0-5 [facility] Comment on above: Performed By: #### H CGUMD, UR1MD ####[address] [place], [place] [address] Bilirubin Urine Negative Normal Negative [facility] Comment on above: Performed By: #### H CGUMD, UR1MD ####[address] [place] [address] [place], [place] [address] Blood Urine Moderate Abnormal Negative [facility] Comment on above: Performed By: #### H CGUMD, UR1MD ####[address] [place], [place] [address] Nitrites Urine Negative Normal Negative [facility] Comment on above: Performed By: #### H CGUMD, UR1MD ####[address] [place], [place] [address] Protein Urine Negative Normal Negative [facility] Comment on above: Performed By: #### H CGUMD, UR1MD ####[address] [place] [address] [place], [place] [address] Specific [place] urine 1.020 Normal 1.001-1.035 [facility] Comment on above: Performed By: #### H CGUMD, UR1MD ####[address] [place], [place] [address] Urine, appearance Clear Normal Clear [facility] Comment on above: Performed By: #### H CGUMD, UR1MD ####[address] [place], [place] [address] Urine, color Yellow Normal YEL,DKYEL [facility] Comment on above: Performed By: #### H CGUMD, UR1MD ####[id number], [place] [address] Urine, glucose presence Negative Normal Negative [facility] Comment on above: Performed By: #### H CGUMD, UR1MD ####[id number], [place] [address] Urine, ketones presence Negative Normal Negative [facility] Comment on above: Performed By: #### H CGUMD, UR1MD ####[id number], [place] [address] Urine, leukocyte esterase presence Negative Normal Negative [facility] Comment on above: Performed By: #### H CGUMD, UR1MD ####[id number], [place] [address] Urine, pH 6.0 [pH] Normal 5.0-7.0 [facility] Comment on above: Performed By: #### H CGUMD, UR1MD ####[id number], [place] [address] Urobilinogen urine 0.2 EU/dL Normal <2.0 [facility] Comment on above: Performed By: #### H CGUMD, UR1MD ####[id number], [place] [address] Vital Signs Date Time Vital Sign Value Performing Clinician Facility 01-01-2024 13:26-040 Body mass index (BMI) [Ratio] 35.88 kg/m2 Janine SEVILLA Work Phone: [facility] 01-01-2024 13:040 Body weight 107.05 kg Janine SEVILLA Work Phone: [facility] 01-01-2024 13:26-0400 Diastolic blood pressure 76 mm[Hg] Janine SEVILLA Work Phone: [facility] 01-01-2024 13:26-0400 Systolic blood pressure 118 mm[Hg] Janine SEVILLA Work Phone: [facility] 12-18-2023 15:06-0400 Body mass index (BMI) [Ratio] 35.54 kg/m2 Dmitriy Rodo DO Work Phone: [facility] 12-18-2023 15:06-0400 Body weight 106.03 kg Dmitriy Rodo DO Work Phone: [facility] 12-18-2023 15:06-0400 Diastolic blood pressure 68 mm[Hg] Dmitriy Rodo DO Work Phone: [facility] 12-18-2023 15:06-0400 Systolic blood pressure 108 mm[Hg] Dmitriy Rodo DO Work Phone: [facility] 03-29-2021 11:15-0500 Body height 172.72 cm Arminda Holt Other [facility] Other 03-29-2021 11:15-0500 Body mass index (BMI) [Ratio] 36.49 kg/m2 Arminda Holt Other [facility] Other 03-29-2021 11:15-0500 Body temperature 97 [degF] Arminda Holt Other [facility] Other 03-29-2021 11:15-0500 Body weight 108.86 kg Arminda Holt Other [facility] Other 03-29-2021 11:15-0500 SaO2% (BldA) [Mass fraction] 99 % Arminda Holt Other [facility] Other Encounters Encounter Date Encounter Type Care Provider Facility Start: 01-01-2024 End: 01-01-2024 Bamboo flowsheet Janine SEVILLA Work Phone: [facility] Start: 01-01-2024 End: 01-01-2024 Bamboo flowsheet Janine SEVILLA Work Phone: [facility] Start: 01-01-2024 End: 01-01-2024 ambulatory JANINE GUZMAN Not Available Start: 01-01-2024 End: 01-01-2024 flow sheet Janine SEVILLA Work Phone: [facility] Comment on above: Third trimester preg kianna; 32 weeks gestation of Start: 12-19-2023 End: 12-19-[address] [facility] Start: 12-18-2023 End: 12-18-2023 ambulatory DMITRIY RODO Not Available Start: 12-18-2023 End: 12-18-2023 flow sheet Dmitriy Rodo DO Work Phone: [facility] Comment on above: Third trimester preg kianna; 30 weeks gestation of ; H/O placenta previa Start: 12-18-2023 End: 12-18-2023 Bamboo flowsheet Dmitriy Rodo DO Work Phone: [facility] Start: 12-18-2023 End: 12-18-2023 Bamboo flowsheet Dmitriy Rodo DO Work Phone: [facility] Start: 12-04-2023 End: 12-04-2023 ambulatory JANINE GUZMAN Not Available Start: 11-22-2023 End: [facility] Start: 11-20-2023 End: 11-20-2023 ambulatory DMITRIY RODO Not Available Start: 10-25-2023 End: 10-25-2023 ambulatory DMITRIY R RODO [facility] Start: 10-24-2023 End: 10-24-2023 ambulatory JANINE GUZMAN Not Available Start: 09-24-2023 End: 09-24-2023 ambulatory DMITRIY RODO Not Available Start: 08-22-2023 End: 08-22-2023 ambulatory DMITRIY RODO Not Available Start: 07-26-2023 End: 07-26-2023 ambulatory DMITRIY RODO Not Available Start: 03-29-2021 End: 03-29-2021 ambulatory Arminda Holt Other [facility] Other Start: 03-29-2021 Office outpatient ne w [...] 01-09-2017 Emergency department patient visit SELF SELF [facility] Procedures Date Procedure Procedure Detail [...] [facility] [address] [place] [address] Janine Guzman PA [address] [place] [address] [facility] Start: 01-01-2024 End: 01-01-2024 Patient encounter procedure 01/01/2024 1:00 PM EDT Routine [facility] [address] [place] [phone] Janine Guzman PA [address] [place], [place] [id number] [facility] Start: 12-18-2023 End: 12-17-2024 [...] Type: Not on file Address: [address] [place] [id number]. [id number] 2022 Unknown BCBS BCBS xxxxxx [id number] 2022-Present [phone] [address] [place] [address] [id number]. 2.7.3.680951.315 2022 Unknown [id number] 2017 Unknown [id number] 1989 Unknown [id number] 2.16.840.1.199392.3.579. 2.593 1989 Unknown [id number] 2.16.840.1.089161.3.579. 2.593 1989 Unknown [id number] 2.16.840.1.065018.3.579. 2.593 1989 Unknown [id number] 2.16.840.1.789669.3.579. 2.593 1989 Unknown [id number] 2.16.840.1.229447.3.579. 2.593 1989 Unknown [id number] 2.16.840.1.085263.3.579. 2.593 1989 Unknown [id number] 2.16.840.1.377497.3.579. 2.593 1989 Unknown [id number] 2.16.840.1.674719.3.579. 2.593 1989 Unknown [id number] 2.16.840.1.313712.3.579. 2.1286 1989 Unknown [id number] 2.16.840.1.103379.3.579. 2.1286 1989 Unknown [id number] 2.16.840.1.774227.3.579. 2.1286 1989 Unknown [id number] 2.16.840.1.321417.3.579. 2.1286 1989 Unknown [id number] 2.16.840.1.517325.3.579. 2.1259 1989 Unknown [id number] 2.16.840.1.745934.3.579. 2.1259 1989 Unknown [id number] 2.16.840.1.560068.3.579. 2.1259 1989 Unknown [id number] 2.16.840.1.837293.3.579. 2.1259 1989 Unknown [id number] 2.16.840.1.816454.3.579. 2.9 1989 Unknown [id number] 2.16.840.1.482578.3.579. 2.9 1989 Unknown [id number] 2.16.840.1.109690.3.579. 2.9 1989 Unknown [id number] 2.16.840.1.090190.3.579. 2.1259 1960 Private Health Insurance [id number] 1960 Self-pay [id number] Unknown [id number] 2.16.840.1.239400.19 Social History Date Type Detail Facility Start: 08-22-2023 Sex Assigned At [facility] Start: 08-22-2023 End: 01-01-2024 Tobacco smoking status [facility] Ex-smoker [facility] Start: 08-18-2015 End: 09-19-2014 History of tobacco use Current smoker [facility] Start: 08-18-2015 End: 09-19-2014 History of tobacco use Cigarette Smoker [facility] Start: 08-22-2023 End: 01-01-2024 Cigarettes smoked current (pack per day) - Reported 0.5 [facility] Start: 08-22-2023 End: 01-01-2024 Tobacco use and exposure Smokeless tobacco non-user [facility] Start: 12-04-2023 End: 01-01-2024 Alcoholic beverage intake Ex-drinker (finding) [facility] Start: 05-30-2023 [facility] Start: 1990 Sex assigned at Not on file [facility] Start: 07-26-2023 Gender identity Identifies as female gender (finding) [facility] Start: 07-26-2023 Sexual orientation Heterosexual (finding) [facility] History of Present illness Narrative 01-01-2024 DI [...] nursing note reviewed. Exam conducted with a book sewer present. Vitals: Estimated body mass index is [...] Dmitriy Koehler DO documented in this encounter [facility] Evaluation note 03-29-2021 Note Date & [...] Patient care instructions given in writting by [facility] document. [facility] Other Evaluation note Note Date & Type [...] section and content) DATE CREATED AUTHOR 09/11/2017 [facility] DATE CREATED AUTHOR AUTHOR'S ORGANIZ ATION [facility] DATE CREATED AUTHOR AUTHOR'S ORGANIZ ATION 11/24/2020 [facility] DATE CREATED AUTHOR AUTHOR'S ORGANIZ ATION 04/08/2021 [facility] DATE CREATED AUTHOR AUTHOR'S ORGANIZ ATION 04/18/2021 [facility] Specialist DATE CREATED AUTHOR AUTHOR'S ORGANIZ ATION 06/24/2021 [facility] [place] DATE CREATED AUTHOR AUTHOR'S ORGANIZ ATION 11/24/2023 [facility] DATE CREATED AUTHOR AUTHOR'S ORGANIZ ATION 12/21/2023 [facility] DATE CREATED AUTHOR AUTHOR'S ORGANIZ ATION 01/03/2024 [facility] dical Specialists EPIC REASON FOR VISIT (unrecogniz [...] BE BASED ON THE PRIMARY CLINICAL RECORDS. [facility] [employer] provides no warranty or guarantee of the accuracy or completeness of information in this document.
--- NOTE | 2024-01-10 13:05 | US_ITS ---
[address] [address] Patient Name: MATTY HOLLEY MRN: [facility]:[id number] date: 1990 Sex: F Assigned Patient [facility] [place] [facility] Accession/Order Number: [id number] Exam Date: 01/10/2024 13:08 Report Date: 01/11/2024 06:23 At the request of: DMITRIY BOWIE Procedure: US OB BPP w non-stress EXAMINATION: US OB BPP w non-stress HISTORY:H/O PLACENTA PREVIA Z87.59 COMPARISON: Ultrasound OB biophysical 01/03/2024 TECHNIQUE: Ultrasound biophysical profile was performed in the radiology department. BREATHING MOVEMENTS: 2 GROSS BODY MOVEMENTS: 2 TONE: 2 QUALITATIVE AMNIOTIC FLUID VOLUME: 2 PRESENTATION: CEPHALIC HEART RATE: 138.46 bpm AMNIOTIC FLUID VOLUME: 16.01 cm GESTATIONAL AGE: 34 weeks 1 day US/US OB BPP w non-stress IMPRESSION: Total biophysical profile score: 8 Electronically authenticated by: DANG MENDOZA Date: 01/11/2024 06:23
[2024-01-10 13:31] VITALS: BP 115/75; PULSE 83
== END 2024-01-10 14:06 | disposition home or self-care (01) ==
LOC: US 07:00 → FBC 13:00
PROVIDERS: Visit Provider Obstetrics & Gynecology
DX: Z87.59 Personal history of other complications of pregnancy, childbirth and the puerperium (principal); Z3A.34 34 weeks gestation of pregnancy
CPT/HCPCS: 76818

== ENCOUNTER 2024-01-14 07:11 | Outpatient (OUT) | payer BC, SELFPAY ==
--- OUTSIDE RECORDS SUMMARY | 2024-01-14 07:13 | XMS_ITS | CCD ---
Author Organization [facility] CliniSymo Care Team Providers Care Customer Advisor Specialist Name Role Phone SELF, SELF Unavailable [...] Drug Class(es) Dates Sig (Normalized) Sig (Original) [id number] 200 actuat albuterol 0.09 mg/actuat metered dose [...] 03-29-2021 Episodic Other aftercare (1 source) Other terminal carman (current) drug therapy; Translations: [OTH DETENTION CURRENT DRUG THERAPY] Onset: 08-19-2020 Episodic Residual [...] UA Negative Negative - 4(70) +++ mg/dL [facility] Blood, UA Negative Negative - 50 Wili/mcL [facility] Healthcare Clarity, UA Clear [facility] Color, UA Yellow [facility] Glucose, UA Negative Negative - 1999(110) ++++ mg/dL [facility] Interpretation and review of laboratory results Abnormal [facility] Ketones, UA Positive Negative - 160(16) ++++ mg/dL [facility] Comment on above: trace Leukocytes, UA Negative Negative - 500+++ Yajaira/mcL [facility] Nitrite, UA Negative Negative - Positive [facility] pH, UA 7 5 - 9 [facility] Protein, UA Positive Negative - 1999(20) ++++ mg/dL [facility] Comment on above: 30 Spec Grav, UA 1.025 1 - 1.03 [facility] Health care Urobilinogen, UA 0.2 0.2 - 12 mg/dL [facility] Urinalysis macro (dipstick) panel (U)on 12-18-2023 Bilirubin, UA Negative Negative - 4(70) +++ mg/dL [facility] Blood, UA Negative Negative - 50 Wili/mcL [facility] Clarity, UA Clear [facility] Color, UA Yellow [facility] Glucose, UA Negative Negative - 1999(110) ++++ mg/dL [facility] Interpretation and review of laboratory results Abnormal [facility] Ketones, UA Negative Negative - 160(16) ++++ mg/dL [facility] Leukocytes, UA Negative Negative - 500+++ Yajaira/mcL [facility] Nitrite, UA Negative Negative - Positive [facility] pH, UA 6.5 5 - 9 [facility] Protein, UA Trace Negative - 1999(20) ++++ mg/dL [facility] Spec Grav, UA 1.030 1 - 1.03 [facility] care Urobilinogen, UA 0.2 0.2 - 12 mg/dL [facility] Complete Blood Count Auto Di ffon 06-14-2021 Basophils (Bld) [#/Vol] 0.0 10*3/uL Normal 0.0-0.2 [facility] Comment on above: Result Comment: PERF ORMED BY: [facility] [address] [address] PATHOLOGIST CALL CENTER DISPATCHER STEPHANIE ROACH M.D. Performed By: #### C BC #### [address] Basophils/100 WBC (Bld) 0.6 % Normal . [facility] Comment on above: Performed By: #### C BC #### [address] Eosinophils (Bld) [#/Vol] 0.1 10*3/uL Normal 0.0-0.45 [facility] Comment on above: Performed By: #### C BC #### [address] Eosinophils/100 WBC (Bld) 1.7 % Normal . [facility] Comment on above: Performed By: #### C BC #### [address] Erythrocyte distribution width (RBC) [Ratio] 13.5 % Normal 11.9-15.3 [facility] Comment on above: Performed By: #### C BC #### [address] Hematocrit (Bld) [Volume fraction] 30.6 % Low 34.0-46.4 [facility] Comment on above: Performed By: #### C BC #### [address] Hemoglobin (Bld) [Mass/Vol] 10.2 g/dL Low 11.8-15.4 [facility] Comment on above: Performed By: #### C BC #### [address] Lymphocytes (Bld) [#/Vol] 2.1 10*3/uL Normal 1.00-4.8 [facility] Comment on above: Performed By: #### C BC #### [address] Lymphocytes/100 WBC (Bld) 24.1 % Normal . [facility] Comment on above: Performed By: #### C BC #### [address] MCH (RBC) [Entitic mass] 31.4 pg Normal 24.7-34.3 [facility] Comment on above: Performed By: #### C BC #### [facility] [address] MCV (RBC) [Entitic vol] 94.0 fL Normal 80-100 F [facility] Comment on above: Performed By: #### C BC #### [facility] [address] Mean Corpuscular HGB Conc 33.4 g/dL Normal 32.0-35.0 [facility] Comment on above: Performed By: #### C BC #### [facility] [address] [place] [address] [place] Monocytes (Bld) [#/Vol] 0.4 10*3/uL Normal 0.0-0.8 [facility] Comment on above: Performed By: #### C BC #### [facility] [address] [place] [address] [place] Monocytes/100 WBC (Bld) 4.9 % Normal . [facility] Comment on above: Performed By: #### C BC #### [facility] [address] [place] [address] [place] Neutrophils (Bld) [#/Vol] 5.9 10*3/uL Normal 1.8-7.7 [facility] Comment on above: Performed By: #### C BC #### [facility] [address] [place] [address] [place] Neutrophils/100 WBC (Bld) 68.7 % Normal . [facility] Comment on above: Performed By: #### C BC #### [facility] [address] [place] [address] [place] Nucleated RBC/100 WBC (Bld) [Ratio] 0.1 % Normal 0-0.5 [facility] Comment on above: Performed By: #### C BC #### [facility] [address] Platelet mean volume (Bld) [Entitic vol] 8.0 fL Normal 6.3-10.7 [facility] Comment on above: Performed By: #### C BC #### [facility] [address] [place] [address] [place] Platelets (Bld) [#/Vol] 298 10*3/uL Normal 150-450 [facility] Comment on above: Performed By: #### C BC #### [facility] [address] RBC (Bld) [#/Vol] 3.25 10*6/uL Low 3.60-5.00 [facility] Comment on above: Performed By: #### C BC #### [facility] [address] WBC (Bld) [#/Vol] 8.6 10*3/uL Normal 4.5-11.0 [facility] Comment on above: Performed By: #### C BC #### [address] Dipstick and Microscopicon 0 06-14-2021 Appearance (U) Clear Normal Clear [facility] Comment on above: Order Comment: Name Collection Type:: Clean-Voided Midstream Performed By: #### A DDONUAPLUS OBUDS #### [address] Bacteria,Urine None Seen Normal None Seen [facility] Comment on above: Order Comment: Name Collection Type:: Clean-Voided Midstream Performed By: #### A DDONUAPLUS OBUDS #### [place] [address] [place] Bilirubin,Urine Negative Normal Negative [facility] Comment on above: Order Comment: Name Collection Type:: Clean-Voided Midstream Performed By: #### A DDONUAPLUS OBUDS #### [address] Color (U) Yellow Normal Yellow [facility] Comment on above: Order Comment: Name Collection Type:: Clean-Voided Midstream Performed By: #### A DDONUAPLUS OBUDS #### [address] Glucose Ql (U) Normal Normal Normal [facility] Comment on above: Order Comment: Name Collection Type:: Clean-Voided Midstream Performed By: #### A DDSHENA OBUDS #### [place] [address] [place] Hyaline Casts,Urine 0-8 Normal 0-8 [facility] Comment on above: Order Comment: Name Collection Type:: Clean-Voided Midstream Result Comment: PERF ORMED BY: [place] [address] PATHOLOGIST CALL CENTER DISPATCHER STEPHANIE ROACH M.D. Performed By: #### A HARJIT OBUDS #### [address] Ketones Ql (U) Negative Normal Negative [facility] Comment on above: Order Comment: Name Collection Type:: Clean-Voided Midstream Performed By: #### A DDONCLINT OBUDS #### [address] Leukocyte esterase Test strip Ql (U) Negative Normal Negative [facility] Comment on above: Order Comment: Name Collection Type:: Clean-Voided Midstream Performed By: #### A DDONUAPLUS OBUDS #### [place] [address] [place] Nitrite,Urine Negative Normal Negative [facility] Comment on above: Order Comment: Name Collection Type:: Clean-Voided Midstream Performed By: #### A DDONUAPLUS OBUDS #### [place] [address] [place] Occult Blood,Urine 3+ High Negative [facility] Comment on above: Order Comment: Name Collection Type:: Clean-Voided Midstream Result Comment: PERF ORMED BY: [place] [address] PATHOLOGIST CALL CENTER DISPATCHER STEPHANIE ROACH M.D. Performed By: #### A HARJIT OBUDS #### [address] pH (U) 7.5 [pH] Normal 5.0-9.0 [facility] Comment on above: Order Comment: Name Collection Type:: Clean-Voided Midstream Performed By: #### A DDONUAPLUS, OBUDS #### [address] Protein,Urine Negative Normal Negative [facility] Comment on above: Order Comment: Name Collection Type:: Clean-Voided Midstream Performed By: #### A DDONUAPLUS, OBUDS #### [address] RBC,Urine 20-49 High 0-4 [facility] Comment on above: Order Comment: Name Collection Type:: Clean-Voided Midstream Performed By: #### A DDONUAPLUS, OBUDS #### [address] Specificy [place],Urine 1.009 Normal 1.001-1.030 [facility] Comment on above: Order Comment: Name Collection Type:: Clean-Voided Midstream Performed By: #### A DDONUAPLUS, OBUDS #### [address] Squamous Epithelial Cell,Urine 1-2 Normal 0-2 [facility] Comment on above: Order Comment: Name Collection Type:: Clean-Voided Midstream Performed By: #### A DDONUAPLUS, OBUDS #### [address] Urobilinogen,Urine Normal Normal Normal [facility] Comment on above: Order Comment: Name Collection Type:: Clean-Voided Midstream Performed By: #### A DDONUAPLUS, OBUDS #### [address] WBC,Urine None Seen Normal 0-4 [facility] Comment on above: Order Comment: Name Collection Type:: Clean-Voided Midstream Performed By: #### A DDONUAPLUS, OBUDS #### [address] [place] [address] [place] OB Urine Drug Screen (NO THC )on 06-14-2021 Amphetamine Screen,Urine Negative Normal Negative [facility] Comment on above: Performed By: #### A DDONUAPLUS, OBUDS #### [place] [address] [place] Barbiturate Screen,Urine Negative Normal Negative [facility] Comment on above: Performed By: #### A DDONUAPLUS, OBUDS #### [place] [address] [place] Benzodiazepines Screen,Urine Negative Normal Negative [facility] Comment on above: Performed By: #### A DDONUAPLUS, OBUDS #### [place] [address] [place] Cocaine Screen,Urine Negative Normal Negative [facility] Comment on above: Performed By: #### A DDONUAPLUS, OBUDS #### [place] [address] [place] Opiate Screen,Urine Negative Normal Negative [facility] Comment on above: Performed By: #### A DDONUAPLUS, OBUDS #### [address] Phencyclidine Screen, Urine Negative Normal Negative [facility] Comment on above: Result Comment: Thes e are unconfirmed results and should not be used for legal purposes. Drug Cut-Off Concentration: AMPH 1000 ng/mL NOLBERTO 200 ng/mL BIANCA 200 ng/mL COCM 300 ng/mL OP 300 ng/mL PCP 25 ng/mL PERFORMED BY: [place] [address] PATHOLOGIST CALL CENTER DISPATCHER STEPHANIE ROACH M.D. Performed By: #### A DDONUAPLUS, OBUDS #### [address] US OB 2nd/3rd Trimesteron OB 2nd/3rd [...] 4.6 cm (19 weeks, 6 days) Head Tmqhacodtmjpu86.3 cm (19 weeks, 0 days) Abdominal Fhxqrzngqynyn79.6 cm (19 weeks, 0 days) Femur Length 3.1 cm (19 weeks, 3 days) PresentationBreech Weight (g) by Uvyydfghcr13.4%* These measurements result in an estimated date [...] by Ayo Jiménez on 04/18/2021 0921 Normal [facility] Shut Off Worker Coding Summaryon 04-07-2021 Coding Summary HTMLBase 64 BswquxfvCTr4vLs+PG hlYWQ+GI8DJMHqI97h cEYmgN6BY4yNIG8PVO IAYKAZBT2TKQ5zwSE8 RJhfZ1LuggEv RbwrpRCtRP19ANv4FQ V1gOqqCOtsyC7nuWHo B8b7FlAsJI55xP23HW vzREUeRkY8IlRkbhen bWFy B2avGfKgpAOiLyw+PH RhYmxlIHdpZHRoPScx NAImXiGigGqyBC9iJv 9yZGVyLWNvbGxhcHNl OiBj m0ueRGTyAVxdWJ0xkL qvE7MrrGS6RZNxi4c9 Wy00mBT+BUGwWLZ8aO mtWTosd353GrBfu4wd IDM3 fDPjYVvoDIA3W01ok0 X3SAAcJAVuEBN5mIZ7 rX4lfMuyeelhP0XypK ZoFrE5TSS5rAWyeB9y bGln risufN8bXwj+Q09ESU 1FDOTBMR2UNhf1H4Gi PjwvdHI+BJ76RRMgPZ 40rKIlzAHdz7eocZz0 JzEw QRBxWRO4gOanNUnva3 LdMPAfM69qxRLqh8O4 IGNvbGxhcHNlOyBlbX K1zS5eBXfiziqve6nf dzsn Eghpy2cofr82bH47H1 5dGNtcKTCxFTI3TMRk SDRebHwcep7cuV9yGl 8+BYiir4szl8hycNu2 IjIw VSKdvhNzfSykMJR9k2 YlZu09U1UcuJydb3Jd Eki9jo17iVPfu0A8aG D6YFopBJRrsU4fXMfx ZnQ6 PIIhKuUwuA80cTBmNH iuKc9wgDalkTcsPA0f TDUntpqcLBYjjV8mNU EthCBhmHirWR7bOYYq bjtm m444UhHqKME7POQalP ZcY8MybM1bXnIvRBXt YLMoE4FabMSqFCbmH0 54ELyzIbN3RNKswpFi Y2Fs YQUirPccRnN7a8W8Zk 5Av1LrnemlKMT8UJlh ISUlTjIjLiLeAeE1V6 VjDbh9VQObjCwnJB2f J3Bh NJEohywngxottOI7VH PaSXXpoZ33sQPyHRzf Jc8qo1S6a518CLFrAX IhvF28Gk8liBlpUIRz dCBU bC5ajcvjo6gaasgwDx XjXARlSAv4EUi7MSAc vKhtNiMjBZX4EqR3BP O6jDJmiJ0ifOsmvhxz dG9w Oyc+I45rdX8nWMD0CK B5qhhqAZNvuwRtQJ42 CT86M9YmAtutpPImaD U+NJMmduGseSzwFG4b YmFj s8mpo4JkIPlhW2JkMS JcHWreQvq4QNTsKYT3 lWI2tQ2bPNZvPIjjj4 Y7bIZ5I1CbuxVjlz2p b2xs KPNeHLaxV54bdVBvu3 N8NXGzeXU1FERfsMzg XwHcnK93Kpv+PGNvbG zhm5SvWejcr0djm5ra dGg9 IjMwJSIgdmFsaWduPS L3w5MgNm56E74yKKci ZHRoPSIxNSUiIHZhbG qqrs8gaW9yKi2+PGNv bCB3 dEU4uP6jVOCgZbI6UE mmW288DdCzhEYzWjyd o2oig3otfQy2PcZwZJ OpzyHrbLptXNQ5a2Ra Lz48 V40gSKhrYZIgDHVxAW UpWLPbxAivcq8wyQ5k Ii8+DQ5vi7ddpn28iO 48dHI+RAJpKXX0eBii PSdw LPQjbH8xPPjwBrS4CH AqIuOwcH78sWUjWCae Ac6kfMxkdSzgGW1dZC Choeojf366TjXqt4xj IDEw sNLtGRojZQU2O70jl0 Q4QIVsKMVrVVI8iHF7 kZ0mwCfhnvpqoZViwU sgdmVydGljYWwtYWxp Z246 IHRvcDsnPlBhdGllbn MkUzDeTNs8F0ObKsz7 OVUmcDiwLB3psIIjYX gpKl2vlIubfLqmUO6v NTBp yeumg358AzPka6xtLE GlmTLxTEfiRIO0O35a t5A0GMFoPGLrUCA0jU Z9nT1miRodgjewaQAw dDsg dmVydGljYWwtYWxpZ2 46IHRvcDsnPkJpcnRo OVXneXN4FR60DI85lW Ryt1V1jXV0E9JoGMPd bmct aiqshYU5VZVbTYHvdL 10Nx8tyEunEb1yFVXk BYY1EUHcqLHeE4PrpG 8jSsZwMWMjVYDrP0Wy eHQt PCbaE598MRowPlQ8VS WcqzEtN7WnUAOaoUgg XuH2o7C9Kt7QH2R8QJ 38YC95jULao6J3aUM2 J3Bh CYCeosdrcjxndBF0DB AqPKVbgN54Ta7prTqc Oe2iKECzAPP3KWNviO UaZ7SdkD4lCuKvCASs MDAw N5KscYPaJVtiM375FQ etRhB1PTPuxgLxH8Ob ZRJhuEqaOwP0s1E1Hz 9WHTk0QW63IF92tXIg c3R5 vBI0Z6NtLUAgiaoipx iftHR7VYJzCPYoeZ24 Rh2rgOgiZt2dOBHgXP Z8DYDkoHUfQ0BysY1s OiAj MHPjNVAkM3NwdFZfTH skK612ZRcfGjE9DYYv kxAkA2OlWUOufYkdRz R0v5Q5Ls0AAEHpEX15 IFR5 uEY0HS92FQ64E6HpNo wvdGFibGU+PHRhYmxl IHdpZHRoPScxMDAlJy BlnHbmHR1rPq0tHSQc LWNv vDsopIBbRnQjx5pjNZ MvNXauJE1leDzuG5Qv lAP2VQJgx5v7Bj87B3 9eK7VvhIP+PGNvbCB3 aWR0 iD7qRdIjVeF1JAjcJ0 71CfFraYZhIjmrj9hb j4jouYu3OrI4XTFetl PclRqoHTM0c2DfLi60 Y29s IHdpZHRoPSIxNSUiIH AdpQhbfb5uzI4qHs5+ PMNgqNR1gXD0cC4aSq GcDpL3RAvoU413WeIe cCIv Aoomy4jwq6ntjAo4Aa IwJSIgdmFsaWduPSJ0 g7MxLp36R5TesIvyr3 BvIob6on90yBVkk9Y4 bGU9 J4LlUGMjwpgdaSVprK rhIK3vJTIxwknkBUKt eT3cRXQlC9v8VeKxRb C1CJdzC7EftzN5LTHd cHQg ALaxNTB4L56ic8W3JC JaVOJvRCX2lZQ4jT6h bGlnbjogbGVmdDsgdm GfeKcoGSswUYgtT545 IHRv lTkpVBTijG2uFNGnvF JuwAxbFY3vSNXhjplt DcSYZsKLExtbSU7OHW LRWZA8I0IqLzx5JFPj dHls PY5zdSEgQGoaDa0mgY dmbGtkPC8kEPClpvfy LYDncQ1qQIFppLAkeP jrIH5aTUUkojirv546 OiAx CTI9TIOuiKRrN6WoxY 9nBmMtNJVaSEMfW0Lj oRWqBDkdN784DGglSw A8GLJrgxVbA0FzMVJl aWdu PnW1d3P0Hz2jYg2tHh 6bUSwzHY07QS46iIZa x9E8dUD9B7DpSWDiwu gpstaxgAN3UQTqKBWl aW47 kQQpHNrcWh0us5I8u9 33IOBuGLCvcZ52Ib3c kDdnULJzwAHZcX1wlj lrz0kflpteZdInUPZc MDt0 MEx1MXDsgApfLdUyCH B9QrB3BQQ7rSGpdQ2e cBcgiejzwR2pFfj+Mz NaQQWewqV9O8YcIkr2 ZCBz uFvpCV4bzMTrILwoEz 6daGtbqYyyTC7pZGOo ppctGEZoqQ4bPVHtfP FzlVtdRH1tKMZxslol b250 JbOkJHU6GYUblCHvM8 AriU3tWrAtILIbJVOg V5XckSMwCXfbL684IZ zsUuT5LRZuspMzH8Sa LWFs dBznTcA5q9L1Fq0EIJ 5SFJI0J8ItMxg8WLDl eBylYF7rrXIvAFkrAx 9inCdciLreNC6vUWQz bjtw KEAgmG8fTHWccHNoiU vhDC0qGIQmplfvv216 AmEzXFF2ZFXecGPkN2 JgdF9bHxUbXRDfDBKt O3Rl tRGyRDgyQ044SHzbYp A2VGGsviThA2FtFQBz oZxpYfO9n0V1Cd6HLB wvdGQ+TJ12ts24B2Pr Ymxl Fzk6VTGeGPN9bEN2nO 2rODAjGCqrk0K0nVZ0 C8AxztWrqk3ec1fdCR LzFSqqB61eaUBhs3Q6 IGVt bBC3JBGedJekPgMdgF 93Oyc+XDSvyEgex6Sj Crdtp2djt2mbcDb7Me MwJSIgdmFsaWduPSJ0 b3Ai Uq16L81wMNmxSHNyBJ LvJHJmDYZzjTijpn1p rV5zTy9+BZItcEH4eW W7pG7pOxUfNmU5KQgz Z249 SaHbpKPfOhlel5bko6 tmhDz3CyFiLAIztmHn mUdtJPC3h8JsXs56U4 VdrIcnr9CqPzh8fj54 dGQg u1F7hMM1X7AbKUSmov nvyQDbcOdbHU4jOVAz lnzaPPVpfP7zNUGpB0 a2KgJzMsA9AGcbV4Mg bnQ6 IGJvbGQgMTBwdCBUaW 8rboupa5rwaismDuZb TRBpRMs5SKp4EMPkiU twLpPnDKK5JgO3MZH7 aWNh zL3pmGqxrekcoU2lPo c+PLk2n1ckyYBlHR5g kHG5BO15CG69eBFju7 T0iRY6L8OmXYGkuusd cmln eIS3CFQiNXGbbW52Em 7inCqyYa5hWSUmYBN2 TXHkwTJeV4YtjA0eMe PyIFIjGKLnO2TsbUAw YWxp G794YPinIvL2OMPwrz SaA8QyXWWkdModNhH4 m5F5Zx4CTL45BZ38VY 10eKTmi2O2nLP1I5Lr ZGRp exdkhqwcaJS0ECYpGM ZpwL26Ea2htKntSl5e OBVyRIG4QVQgzJQtK6 PatL5zRnRmMOCoGVIt O3Rl pGLxZHaqO125XIrpTt V1GLMlkqRuP9BkMYQn eWcoPuZ9m2X8Xy3FAp 38DL79IA70iOJjf7L2 bGU9 J9UcIWIwyhgdcqxpuK N2WKUqSEWveT64Bx7d nRldQs0wQSFaLIY2FK IbhHSyP7XsnL5qTzNs MDAw PBEaF1NcpSSySBadF9 49HMuiGrB0JYDvhxMt C1WmJMMimXaxClQ9i2 X4Im5KANkpuko0N3Qr Pjwv dHI+MK88XEFjFO28mC SycZXpn6fjxMm1IdKm ANBxSGM1mNerNPgoh4 YqYEAiM45joGZww7U5 IGNv bGx (more content not included)... [facility] Consent Formson 04-01-2021 Consent Forms [id number]#1.00OTGTIFF [facility] Provider Orderson 04-01-2021 Provider Orders [id number]#1.00OTGTIFF [facility] COVID Quick Testingon 2021 Result Positive [employer] Other HERPES SIMPLEX VIRUS 1/2 DNA PCRon 11-11-2020 HSV-1 DNA Negative Normal Negative [facility] Comment on above: Performed By: #### C BC #### [facility] [address] [place], [place] [id number] Sunshine Carlos HSV-2 DNA Positive Abnormal Negative [facility] Comment on above: Result Comment: This test was developed and its performance characteristics determined by [facility]. It has not been cleared or approved by the [place] Food and Drug Administration. The FDA has determined that such clearance or approval is not necessary. This test is used for clinical purposes. It should not be regarded as investigational or research. Performed By: #### C BC #### [facility] [address] [place] [address] Sunshine Carlos CULTURE URINEon 11-10-2020 CULTURE URINE [...] <=0.25 S F Normal [facility] Comment on above: Performed By: #### C BC #### [facility] [address] [place] [address] Sunshine Carlos CHLAMYDIA/GONOCOCCUS TINA (SW AB/URINE/PAPon 11-09-2020 Chlamydia trachomatis, TINA Negative Normal Negative [facility] Comment on above: Performed By: #### C T/NGNA #### [facility] [address] [place], [place] [address] Sunshine Carlos Neisseria gonorrhoeae, TINA Negative Normal Negative [facility] Comment on above: Performed By: #### C T/NGNA #### [facility] [address] [place], [place] [id number] Sunshine Carlos Covid-19 PCR (CVDTB)on 10-18 SARS-CoV-2 (COVID-19) RNA TINA+probe Ql (Unsp spec) Not detected Normal NOT DETECTED [facility] Comment on above: Result Comment: This test is not yet approved or cleared by the [place] FDA. When there are no FDA-approved or cleared tests available, and other criteria are met, FDA can make tests available under an emergency access mechanism called an Emergency Use Authorization (EUA). The EUA for this test is supported by the [place] of Health and Human Service's (HHS's) declaration [...] #### C VDAGS, CVDTBH #### [facility] [address] [place] [address] Sunshine Breanna ER URINE PROFILEon 1 Bilirubin Ql (U) Negative Normal NEGATIVE [facility] Comment on above: Performed By: #### C BC #### [facility] [address] [place] [address] Sunshine Breanna Clarity (U) CLEAR Normal CLEAR [facility] Comment on above: Performed By: #### C BC #### [facility] [address] [place] [address] Sunshine Breanna Color (U) LT. YELLOW Normal YELLOW [facility] Comment on above: Performed By: #### C BC #### [facility] [address] [place] [address] Sunshine Breanna ERUAHD A micrscopic examination will be performed if indicated. Normal [facility] Comment on above: Performed By: #### C BC #### [facility] [address] [place] [address] Sunshine Breanna Glucose Ql (U) Negative Normal NEGATIVE [facility] Comment on above: Performed By: #### C BC #### [facility] [address] [place] [address] Sunshine Breanna Hemoglobin Ql (U) LARGE Abnormal NEGATIVE [facility] Comment on above: Performed By: #### C BC #### [facility] [address] [place] [address] Sunshine Breanna Ketones Ql (U) Negative Normal NEGATIVE [facility] Comment on above: Performed By: #### C BC #### [facility] [address] [place], [place] [id number] Sunshine Breanna LEUKOCYTES Negative Normal NEGATIVE [facility] Comment on above: Performed By: #### C BC #### [facility] [address] [place] [address] Sunshine Breanna Nitrite Ql (U) Negative Normal NEGATIVE [facility] Comment on above: Performed By: #### C BC #### [facility] [address] [place] [address] Sunshine Breanna pH (U) 5.5 [pH] Normal 5-9 [facility] Comment on above: Performed By: #### C BC #### [facility] [address] [place] [address] Sunshine Breanna SPEC GRAVITY >=1.030 Abnormal 1.005-<=1.02 5 [facility] Comment on above: Performed By: #### C BC #### [facility] [address] [place] [address] Sunshine Breanna UA PROTEIN Negative Normal NEGATIVE/ TRACE [facility] Comment on above: Performed By: #### C BC #### [facility] [address] [place] [address] Sunshine Breanna UR MICRO IND INDICATED Normal [facility] Comment on above: Performed By: #### C BC #### [facility] [address] [place] [address] Sunshine Breanna Urobilinogen Qn (U) 0.2 {Braden'U}/dL Normal 0.2 - 1. 0 [facility] Comment on above: Performed By: #### C BC #### [facility] [address] [place] [address] Sunshine Breanna URon 11-08-2020 , QUAL Negative Normal NEGATIVE [facility] Comment on above: Performed By: #### C BC #### [facility] [address] [place] [id number] Sunshine Carlos STREPT SCREENon 11-08-2020 STREP SCREEN A Positive Abnormal NEGATIVE [facility] Comment on above: Performed By: #### C BC #### [facility] [address] [place], [place] [id number] Sunshine Carlos SYMPTOMATIC COVID-19 ANTIGEN on 11-08-2020 EUA Statement SEE BELOW Normal [facility] Comment on above: Result Comment: [...] Performed By: #### C JAYMIES, CVDTB #### [facility] [address] [place], [place] [id number] Sunshine Carlos SARS-CoV-2 (COVID-19) RNA TINA+probe Ql (Unsp spec) Negative Normal NEGATIVE [facility] Comment on above: Result Comment: CONF IRMATION BY PCR PENDING PER CDC GUIDELINES/ SYMPTOMATIC PATIENT. Performed By: #### C VDAGS, CVDTBH #### [facility] [address] [place], [place] [id number] Sunshine Carlos URINE MICROSCOPIC ONLYon AMORPHOUS CRYSTALS FEW Normal The [facility] Comment on above: Performed By: #### C BC #### [facility] [address] [place] [id number] Sunshine Carlos BACTERIA SMALL Abnormal NONE SEEN [facility] Comment on above: Performed By: #### C BC #### [facility] [address] [place] [address] Sunshine Breanna Bacteria identified Cx Nom (U) INDICATED Normal [facility] Comment on above: Performed By: #### C BC #### [facility] [address] [place], [place] [id number] Sunshine Breanna CAST NONE SEEN Normal NONE SEEN [facility] Comment on above: Performed By: #### C BC #### [facility] [address] [place] [address] Sunshine Breanna Crystals LM Nom (Urine sed) SEEN Abnormal NONE SEEN [facility] Comment on above: Performed By: #### C BC #### [facility] [address] [place], [place] [id number] Sunshine Breanna Epithelial cells LM Ql (Urine sed) MODERATE Abnormal NONE SEEN /RARE [facility] Comment on above: Performed By: #### C BC #### [facility] [address] [place] [address] Sunshine Breanna MUCOUS MODERATE Abnormal NONE SEEN [facility] Comment on above: Performed By: #### C BC #### [facility] [address] [place], [place] [id number] Sunshine Breanna RBC 2-5 Abnormal 0-2 [facility] Comment on above: Performed By: #### C BC #### [facility] [address] [place], [place] [id number] Sunshine Breanna WBC 5-10 Abnormal NONE SEEN [facility] Comment on above: Performed By: #### C BC #### [facility] [address] [place], [place] [id number] Sunshine Breanna US SINGLE QUAD RT UPPERon [...] Date: 2020-08-19 15:23 Normal [facility] AMYLASEon 08-17-2020 Amylase [Catalytic activity/Vol] 49 U/L Normal 31-110 [facility] Comment on above: Performed By: #### C BC #### [facility] [address] [place] [address] Sunshine Breanna CBC AUTO DIFFon 08-17-2020 BASO # 0.0 103/ul Normal 0.0-0.1 [facility] Comment on above: Performed By: #### C BC #### [facility] [address] [place] [address] Sunshine Breanna Basophils/100 WBC (Bld) 0.6 % Normal 0.2-2.0 [facility] Comment on above: Performed By: #### C BC #### [facility] [address] [place] [address] Sunshine Breanna EO # 0.1 103/ul Normal 0.0-0.7 [facility] Comment on above: Performed By: #### C BC #### [facility] [address] [place] [address] Sunshine Breanna Eosinophils/100 WBC (Bld) 1.3 % Normal 0.9-7.0 [facility] Comment on above: Performed By: #### C BC #### [facility] [address] [place] [address] Sunshine Breanna Erythrocyte distribution width (RBC) [Ratio] 13.0 % Normal 11.0-15.0 [facility] Comment on above: Performed By: #### C BC #### [facility] [address] [place] [address] Sunshine Breanna Hematocrit (Bld) [Volume fraction] 39.1 % Normal 36.0-48.0 [facility] Comment on above: Performed By: #### C BC #### [facility] [address] [place] [address] Sunshine Breanna Hemoglobin (Bld) [Mass/Vol] 13.2 g/dL Normal 12.0-16.0 [facility] Comment on above: Performed By: #### C BC #### [facility] [address] [place] [address] Sunshine Breanna IG # 0.01 10e3/ul Normal 0.00-0.03 [facility] Comment on above: Performed By: #### C BC #### [facility] [address] [place] [address] Sunshine Breanna IG % 0.1 % Normal 0.0-0.5 [facility] Comment on above: Performed By: #### C BC #### [facility] [address] [place] [address] Sunshine Breanna LYMPH # 2.4 103/ul Normal 1.2-3.8 [facility] Comment on above: Performed By: #### C BC #### [facility] [address] [place] [address] Sunshine Carlos Lymphocytes/100 WBC (Bld) 33.5 % Normal 20.5-60.0 [facility] Comment on above: Performed By: #### C BC #### [facility] [address] [place] [address] Sunshine Gonzalezen MANUAL DIFF REQ NO Normal [facility] Comment on above: Performed By: #### C BC #### [facility] [address] [place], [place] [id number] Sunshine Breanna MCH (RBC) [Entitic mass] 30.6 pg Normal 26.7-34.0 [facility] Comment on above: Performed By: #### C BC #### [facility] [address] [place], [place] [phone] Sunshine Carlos MCHC (RBC) [Mass/Vol] 33.8 g/dL Normal 29.9-35.2 [facility] Comment on above: Performed By: #### C BC #### [facility] [address] [place], [place] [id number] Sunshine Carlos MCV (RBC) [Entitic vol] 90.7 fL Normal 81.0-99.0 [facility] Comment on above: Performed By: #### C BC #### [facility] [address] [place], [place] [address] Sunshinevinita Gonzalezen MONO # 0.3 103/ul Normal 0.3-0.8 [facility] Comment on above: Performed By: #### C BC #### [facility] [address] [place], [place] [address] Sunshine Carlos Monocytes/100 WBC (Bld) 4.1 % Normal 1.7-12.0 [facility] Comment on above: Performed By: #### C BC #### [facility] [address] [place], [place] [address] Sunshine Gonzalezen NEUT # 4.2 103/ul Normal 1.4-6.5 [facility] Comment on above: Performed By: #### C BC #### [facility] [address] [place], [place] [address] Sunshine Carlos Neutrophils/100 WBC (Bld) 60.4 % Normal 43.0-75.0 [facility] Comment on above: Performed By: #### C BC #### [facility] [address] [place], [place] [id number] Sunshine Carlos Platelet mean volume (Bld) [Entitic vol] 10.7 fL Normal 9.5-13.5 [facility] Comment on above: Performed By: #### C BC #### [facility] [address] [place], [place] [id number] Sunshine Breanna PLT 321 103/ul Normal 150-450 [facility] Comment on above: Performed By: #### C BC #### [facility] [address] [place], [place] [address] Sunshine Breanna RBC 4.31 106/ul Normal 4.20-5.40 [facility] Comment on above: Performed By: #### C BC #### [facility] [address] [place] [address] Sunshine Carlos WBC 7.0 103/ul Normal 4.0-11.0 [facility] Comment on above: Performed By: #### C BC #### [facility] [address] [place], [place] [id number] Sunshine Carlos LIPASEon 08-17-2020 Lipase [Catalytic activity/Vol] 97.0 U/L Normal 23.0-300.0 [facility] Comment on above: Performed By: #### T CANDE, CMP, LIPA, JANINE #### [facility] [address] [place] [address] Sunshine Carlos PROF 14(COMP METB)on 021 Albumin [Mass/Vol] 3.5 g/dL Normal 3.5-5.0 [facility] Comment on above: Performed By: #### T CANDE, CMP, LIPA, JANINE #### [facility] [address] [place] [address] Sunshine Carlos Albumin/Globulin [Mass ratio] 0.8 {ratio} Normal [facility] Comment on above: Performed By: #### T CANDE, CMP, LIPA, JANINE #### [facility] [address] [place] [address] Sunshinevinita Carlos ALP [Catalytic activity/Vol] 64 U/L Normal 38-126 [facility] Comment on above: Performed By: #### T CANDE, CMP, LIPA, JANINE #### [facility] [address] [place] [address] Sunshine Carlos ALT [Catalytic activity/Vol] 12 U/L Normal 9-52 [facility] Comment on above: Performed By: #### T CANDE, CMP, LIPA, JANINE #### [facility] [address] [place] [address] Sunshine Breanna Anion gap [Moles/Vol] 14.9 mmol/L Normal [facility] Comment on above: Performed By: #### T CANDE, CMP, LIPA, JANINE #### [facility] [address] [address] Sunshine Breanna AST [Catalytic activity/Vol] 9 U/L Critically low 14-36 [facility] Comment on above: Performed By: #### T CANDE, CMP, LIPA, JANINE #### [facility] [address] [address] Sunshine Breanna Bilirubin [Mass/Vol] 0.2 mg/dL Normal 0.2-1.3 [facility] Comment on above: Performed By: #### T CANDE, CMP, LIPA, JANINE #### [facility] [address] [place] [address] Sunshine Breanna Calcium [Mass/Vol] 8.9 mg/dL Normal 8.4-10.2 The [facility] Comment on above: Performed By: #### T CANDE, CMP, LIPA, JANINE #### [facility] [address] [place] [address] Sunshine Breanna Chloride [Moles/Vol] 108 mmol/L Critically high 98-107 [facility] Comment on above: Performed By: #### T CANDE, CMP, LIPA, JANINE #### [facility] [address] [place] [address] Sunshine Breanna CO2 [Moles/Vol] 23.8 mmol/L Normal 22.0-30.0 [facility] Comment on above: Performed By: #### T CANDE, CMP, LIPA, JANINE #### [facility] [address] [address] Sunshine Breanna Creatinine [Mass/Vol] 0.81 mg/dL Normal 0.52-1.04 [facility] Comment on above: Performed By: #### T CANDE, CMP, LIPA, JANINE #### [facility] [address] [place] [address] Sunshine Breanna EGFR-AF DJIBOUTIAN >60 Normal >=60 [facility] Comment on above: Performed By: #### T CANDE, CMP, LIPA, JANINE #### [facility] [address] [address] Sunshine Breanna EGFR-NON AF DJIBOUTIAN >60 Normal >=60 [facility] Comment on above: Performed By: #### T CANDE, CMP, LIPA, JANINE #### [facility] [address] [address] Sunshine Breanna Globulin (S) [Mass/Vol] 4.4 g/dL Normal T [facility] Comment on above: Performed By: #### T CANDE, CMP, LIPA, JANINE #### [facility] [address] [address] Sunshine Breanna Glucose [Mass/Vol] 92 mg/dL Normal 74-106 The [facility] Comment on above: Performed By: #### T CANDE, CMP, LIPA, JANINE #### [facility] [address] [place] [address] Sunshine Breanna Potassium [Moles/Vol] 3.7 mmol/L Normal 3.4-5.0 [facility] Comment on above: Performed By: #### T CANDE, CMP, LIPA, JANINE #### [facility] [address] [place] [address] Sunshine Breanna Protein [Mass/Vol] 7.9 g/dL Normal 6.1-8.2 The [facility] Comment on above: Performed By: #### T CANDE, CMP, LIPA, JANINE #### [facility] [address] [place] [address] Sunshine Breanna Sodium [Moles/Vol] 143 mmol/L Normal 137-145 The [facility] Comment on above: Performed By: #### T CANDE, CMP, LIPA, JANINE #### [facility] [address] [place] [address] Sunshine Breanna Urea nitrogen [Mass/Vol] 14.0 mg/dL Normal 7.0-17.0 [facility] Comment on above: Performed By: #### T CANDE, CMP, LIPA, JANINE #### [facility] [address] [place] [address] Sunshine Breanna Urea nitrogen/Creatinine [Mass ratio] 17.3 mg/mg Normal [facility] Comment on above: Performed By: #### T CANDE, CMP, LIPA, JANINE #### [facility] [address] [id number] Sunshine Breanna PREG QUANT HCGon 06-02-2020 HCG QUANT 14 mIU/mL Normal [facility] Comment on above: Performed By: #### C IVELISSE, CVDTB #### [facility] [address] [place] [address] Sunshine Breanna HCG RANGE SEE BELOW Normal [facility] Comment on above: Result Comment: 5-50 0-1 WEEK 40-300 1-2 WEEKS 100-1,000 2-3 WEEKS 500-6,000 3-4 WEEKS 5,000-200,000 1-2 MONTHS 10,000-100,000 2-3 MONTHS 3,000-50,000 2ND TRIMESTER 1,000-50,000 3RD TRIMESTER Performed By: #### C IVELISSE, CVDTB #### [facility] [address] [place] [address] Sunshine Breanna PREG QUANT HCGon 05-20-2020 HCG QUANT 13 mIU/mL Normal [facility] Comment on above: Performed By: #### C BC #### [facility] [address] [place], [place] [address] Sunshine Breanna HCG RANGE SEE BELOW Normal [facility] Comment on above: Result Comment: 5-50 0-1 WEEK 40-300 1-2 WEEKS 100-1,000 2-3 WEEKS 500-6,000 3-4 WEEKS 5,000-200,000 1-2 MONTHS 10,000-100,000 2-3 MONTHS 3,000-50,000 2ND TRIMESTER 1,000-50,000 3RD TRIMESTER Performed By: #### C BC #### [facility] [address] [place], [place] [address] Sunshine Breanna PREG QUANT HCGon 05-06-2020 HCG QUANT 20 mIU/mL Normal [facility] Comment on above: Performed By: #### P REGQNT #### [facility] [address] [place], [place] [address] Sunshine Breanna HCG RANGE SEE BELOW Normal [facility] Comment on above: Result Comment: 5-50 0-1 WEEK 40-300 1-2 WEEKS 100-1,000 2-3 WEEKS 500-6,000 3-4 WEEKS 5,000-200,000 1-2 MONTHS 10,000-100,000 2-3 MONTHS 3,000-50,000 2ND TRIMESTER 1,000-50,000 3RD TRIMESTER Performed By: #### P REGQNT #### [facility] [address] [id number] Sunshine Breanna PREG QUANT HCGon 04-29-2020 HCG QUANT 21 mIU/mL Normal [facility] Comment on above: Performed By: #### P REGQNT #### [facility] [address] [place] [address] Sunshine Breanna HCG RANGE SEE BELOW Normal [facility] Comment on above: Result Comment: 5-50 0-1 WEEK 40-300 1-2 WEEKS 100-1,000 2-3 WEEKS 500-6,000 3-4 WEEKS 5,000-200,000 1-2 MONTHS 10,000-100,000 2-3 MONTHS 3,000-50,000 2ND TRIMESTER 1,000-50,000 3RD TRIMESTER Performed By: #### P REGQNT #### [facility] [address] [place] [address] Sunshine Breanna ABO AND RH TYPEon 04-22-2020 ABO and Rh group Nom (Bld) ABO Rh Typing O Rh Positive Normal [facility] Comment on above: Performed By: #### C BC #### [facility] [address] [place], [place] [address] Sunshine Breanna PREG QUANT HCGon 04-22-2020 HCG QUANT 37 mIU/mL Normal [facility] Comment on above: Performed By: #### P REGQNT #### [facility] [address] [place], [place] [address] Sunshine Breanna HCG RANGE SEE BELOW Normal [facility] Comment on above: Result Comment: 5-50 0-1 WEEK 40-300 1-2 WEEKS 100-1,000 2-3 WEEKS 500-6,000 3-4 WEEKS 5,000-200,000 1-2 MONTHS 10,000-100,000 2-3 MONTHS 3,000-50,000 2ND TRIMESTER 1,000-50,000 3RD TRIMESTER Performed By: #### P REGQNT #### [facility] [address] [place], [place] [address] Sunshine Carlos ED Note-Physicianon 10-16-19 ED Note-Physician [id number] 0EC#[id number]:[id number] Normal [facility] Chlam and gonorrhea: Amp, Ur ine -UHEon 01-12-2017 Chlam and gonorrhea: Amp, Urine -UHE Negative Negative THIS TEST WAS PERFORMED USING A REAL TIME PCR ASSAY. Normal [facility] Comment on above: Performed By: #### R NABU ####[address] [address] Beta HCG (Qual), Urine - MCH on 01-09-2017 HCG.beta subunit ( test) Ql (U) Positive Abnormal Negative [facility] Comment on above: Performed By: #### H CGUMD, UR1MD ####[facility] [place], [place] [address] Beta HCG, quant, S - MCHon 1 Beta HCG, quant, S - MCH 82254.0 mIU/mL Normal [facility] Comment on above: Result Comment: FEMA LE GESTATIONAL AGERESULTS <10 ARE CONSIDERED NEGATIVE4 WEEKS 4700-151538 mIU/mL5 WEEKS 3660-277793 mIU/mL6 WEEKS 97406-553638 mIU/mL7 WEEKS 66357-016569 mIU/mL8 WEEKS 95150-657648 mIU/mL9 WEEKS 88498-859922 mIU/mL10 WEEKS 73374-898038 mIU/mL11 WEEKS 6480-467830 mIU/ml12 WEEKS 6740-502146 mIU/mL13-27 WEEKS 8200-309211 mIU/mL28-40 WEEKS 2320-89794 mIU/mL Performed By: #### C BCMD, PTPTMD, TYSCMD, QHCGMD ####[address] [place], [place] [address] CBC, ELECTRONIC DIFF, PLATEL ET - MCHon 01-09-2017 Absolute Basophil 0.0 K/uL Normal 0.0-0.23 [facility] Comment on above: Performed By: #### C BCMD, PTPTMD, TYSCMD, QHCGMD ####[facility] [place], [place] [address] Absolute Grans 5.9 K/uL Normal 1.8-7.7 [facility] Comment on above: Performed By: #### C BCMD, PTPTMD, TYSCMD, QHCGMD ####[address] [place], [place] [address] Basophils/100 WBC Auto (Bld) 0.5 % Normal 0-2 [facility] Comment on above: Performed By: #### C BCMD, PTPTMD, TYSCMD, QHCGMD ####[address] [place], [place] [address] Eosinophils 0.1 10*3/uL Normal 0.0-0.7 [facility] Comment on above: Performed By: #### C BCMD, PTPTMD, TYSCMD, QHCGMD ####[address] [place], [place] [address] Eosinophils/100 leukocytes 1.0 % Normal 0-5.0 [facility] Comment on above: Performed By: #### C BCMD, PTPTMD, TYSCMD, QHCGMD ####[address] [place], [place] [address] Erythrocytes (RBC) 13.8 % Normal 11.5-14.5 [facility] Comment on above: Performed By: #### C BCMD, PTPTMD, TYSCMD, QHCGMD ####[address] [address] Grans Electronic 64.6 % Normal 50-70 [facility] Comment on above: Performed By: #### C BCMD, PTPTMD, TYSCMD, QHCGMD ####[address] [place], [place] [address] Hematocrit (HCT) 34.5 % Low 35.0-45.0 [facility] Comment on above: Performed By: #### C BCMD, PTPTMD, TYSCMD, QHCGMD ####[facility] [place], [place] [address] Hemoglobin mass conc (Bld) 31.0 pg Normal 27.0-34.0 [facility] Comment on above: Performed By: #### C BCMD, PTPTMD, TYSCMD, QHCGMD ####[address] [place], [place] [address] Hemoglobin mass conc (Bld) 11.7 g/dL Normal 11.7-15.5 [facility] Comment on above: Performed By: #### C BCMD, PTPTMD, TYSCMD, QHCGMD ####[address] [place], [place] [address] Lymphocytes 2.6 10*3/uL Normal 1.0-4.8 [facility] Comment on above: Performed By: #### C BCMD, PTPTMD, TYSCMD, QHCGMD ####[address] [address] Lymphocytes/100 leukocytes 28.7 % Normal 22.0-44.0 [facility] Comment on above: Performed By: #### C BCMD, PTPTMD, TYSCMD, QHCGMD ####[address] [address] MCH 3.78 M/uL Low 3.8-5.1 [facility] Comment on above: Performed By: #### C BCMD, PTPTMD, TYSCMD, QHCGMD ####[address] [place] [address] MCH 9.1 K/uL Normal 4.5-11.0 [facility] Comment on above: Performed By: #### C BCMD, PTPTMD, TYSCMD, QHCGMD ####[address] [address] MCV 91.0 fL Normal 81.0-100.0 [facility] Comment on above: Performed By: #### C BCMD, PTPTMD, TYSCMD, QHCGMD ####[address] [address] Monocytes 0.5 10*3/uL Normal 0.0-0.9 [facility] Comment on above: Performed By: #### C BCMD, PTPTMD, TYSCMD, QHCGMD ####[address] [address] Monocytes/100 leukocytes 5.2 % Normal 0-7.0 [facility] Comment on above: Performed By: #### C BC, PTPTMD, TYSCMD, QHCGMD ####[address] [place], [place] [address] Platelet mean volume (PMV) 8.3 fL Normal 7.5-11.2 [facility] Comment on above: Performed By: #### C BC, PTPTMD, TYSCMD, QHCGMD ####[facility], [place] [address] Platelets 281 10*3/uL Normal 150-400 [facility] Comment on above: Performed By: #### C BC, PTPTMD, TYSCMD, QHCGMD ####[address] [place], [place] [address] ED PROVIDERon 01-09-2017 [facility] HIM CAC NOTES Normal [facility] Normal [facility] Coding OP/ED Report Normal [facility] OSIMCACENCSUMon 01-09-2017 [facility] CAC Encounter Summary Report Normal [facility] PT*PTT - MCHon 01-09-2017 aPTT 33 s Normal 24.6-35.9 [facility] Comment on above: Performed By: #### C BC, PTPTMD, TYSCMD, QHCGMD ####[address] [place], [place] [address] INR Coag RelTime (Bld) 1.1 {INR} Normal 0.87-1.15 [facility] Comment on above: Performed By: #### C BC, PTPTMD, TYSCMD, QHCGMD ####[facility], [place] [address] MCH 13.3 sec Normal 11.5-14.3 [facility] Comment on above: Performed By: #### C BC, PTPTMD, TYSCMD, QHCGMD ####[address] [place], [place] [address] TYPE AND SCREEN - MCHon 12-18 MCH ABO/RH(D) - MCH: O POSITIVE ANTIBODY SCREEN - MCH: Negative Normal [facility] Comment on above: Performed By: #### C BCMD, PTPTMD, TYSCMD, QHCGMD ####[id number], [place] [address] Urinalysis reflex to Cult - MCHon 01-09-2017 COMMENT URINE None Normal [facility] Comment on above: Performed By: #### H CGUMD, UR1MD ####[address], [place] [address] Squamous Epithelial 2+ /HPF Normal [facility] Comment on above: Performed By: #### H CGUMD, UR1MD ####[address], [place] [address] Urine, bacteria in sediment Absent Normal Absent [facility] Comment on above: Performed By: #### H CGUMD, UR1MD ####[address], [place] [address] Urine, erythrocytes in sediment by area 0-2 Normal 0-2 [facility] Comment on above: Performed By: #### H CGUMD, UR1MD ####[address], [place] [address] Urine, leukocytes in sedmiment 0-5 Normal 0-5 [facility] Comment on above: Performed By: #### H CGUMD, UR1MD ####[id number], [place] [address] Bilirubin Urine Negative Normal Negative [facility] Comment on above: Performed By: #### H CGUMD, UR1MD ####[place] [address], [place] [address] Blood Urine Moderate Abnormal Negative [facility] Comment on above: Performed By: #### H CGUMD, UR1MD ####[id number], [place] [address] Nitrites Urine Negative Normal Negative [facility] Comment on above: Performed By: #### H CGUMD, UR1MD ####[place] [address], [place] [address] Protein Urine Negative Normal Negative [facility] Comment on above: Performed By: #### H CGUMD, UR1MD ####[place] [address], [place] [address] Specific [place] urine 1.020 Normal 1.001-1.035 [facility] Comment on above: Performed By: #### H CGUMD, UR1MD ####[id number], [place] [address] Urine, appearance Clear Normal Clear [facility] Comment on above: Performed By: #### H CGUMD, UR1MD ####[address], [place] [address] Urine, color Yellow Normal YEL,DKYEL [facility] Comment on above: Performed By: #### H CGUMD, UR1MD ####[place], [place] [address] Urine, glucose presence Negative Normal Negative [facility] Comment on above: Performed By: #### H CGUMD, UR1MD ####[address], [place] [address] Urine, ketones presence Negative Normal Negative [facility] Comment on above: Performed By: #### H CGUMD, UR1MD ####[id number], [place] [address] Urine, leukocyte esterase presence Negative Normal Negative [facility] Comment on above: Performed By: #### H CGUMD, UR1MD ####[id number], [place] [address] Urine, pH 6.0 [pH] Normal 5.0-7.0 [facility] Comment on above: Performed By: #### H CGUMD, UR1MD ####[place], [place] [address] Urobilinogen urine 0.2 EU/dL Normal <2.0 [facility] Comment on above: Performed By: #### H CGUMD, UR1MD ####[place] [address], [place] [address] Vital Signs Date Time Vital Sign Value Performing Clinician Facility 01-01-2024 13:26-040 Body mass index (BMI) [Ratio] 35.88 kg/m2 Janine SEVILLA Work Phone: [facility] 01-01-2024 13:040 Body weight 107.05 kg Janine SEVILLA Work Phone: [facility] 01-01-2024 13:26-0400 Diastolic blood pressure 76 mm[Hg] Janine SEVILLA Work Phone: [facility] 01-01-2024 13:26-0400 Systolic blood pressure 118 mm[Hg] Janine SEVILLA Work Phone: [facility] 12-18-2023 15:06-0400 Body mass index (BMI) [Ratio] 35.54 kg/m2 Dmitriy Rodo DO Work Phone: [facility] 12-18-2023 15:06-0400 Body weight 106.03 kg Dmitriy Rodo DO Work Phone: [facility] 12-18-2023 15:06-0400 Diastolic blood pressure 68 mm[Hg] Dmitriy Rodo DO Work Phone: [facility] 12-18-2023 15:06-0400 Systolic blood pressure 108 mm[Hg] Dmitriy Rodo DO Work Phone: [facility] 03-29-2021 11:15-0500 Body height 172.72 cm Arminda Holt Other [facility] Other 03-29-2021 11:15-0500 Body mass index (BMI) [Ratio] 36.49 kg/m2 Arminda Holt Other [facility] Other 03-29-2021 11:15-0500 Body temperature 97 [degF] Arminda Holt Other [facility] Other 03-29-2021 11:15-0500 Body weight 108.86 kg Arminda Holt Other [facility] Other 03-29-2021 11:15-0500 SaO2% (BldA) [Mass fraction] 99 % Arminda Holt Other [facility] Other Encounters Encounter Date Encounter Type Care Provider Facility Start: 01-01-2024 End: 01-01-2024 Bamboo flowsheet Janine SEVILLA Work Phone: [facility] Start: 01-01-2024 End: 01-01-2024 Bamboo flowsheet Janine SEVILLA Work Phone: [facility] Start: 01-01-2024 End: 01-01-2024 ambulatory JANINE GUZMAN Not Available Start: 01-01-2024 End: 01-01-2024 flow sheet Janine SEVILLA Work Phone: [facility] Comment on above: Third trimester preg kianna; 32 weeks gestation of Start: 12-19-2023 End: 12-19-2023 ambulatory [facility] Start: 12-18-2023 End: 12-18-2023 ambulatory DMITRIY RODO Not Available Start: 12-18-2023 End: 12-18-2023 flow sheet Dmitriy Rodo DO Work Phone: [facility] Comment on above: Third trimester preg kianna; 30 weeks gestation of ; H/O placenta previa Start: 12-18-2023 End: 12-18-2023 Bamboo flowsheet Dmitriy Rodo DO Work Phone: [facility] Start: 12-18-2023 End: 12-18-2023 Bamboo flowsheet Dmitriy Rodo DO Work Phone: [facility] Start: 12-04-2023 End: 12-04-2023 ambulatory JANINE GUZMAN Not Available Start: 11-22-2023 End: 11-22-2023 [facility]: 11-20-2023 End: 11-20-2023 ambulatory DMITRIY RODO Not Available Start: 10-25-2023 End: 10-25-2023 ambulatory DMITRIY R RODO [facility] Start: 10-24-2023 End: 10-24-2023 ambulatory JANINE GUZMAN Not Available Start: 09-24-2023 End: 09-24-2023 ambulatory DMITRIY RODO Not Available Start: 08-22-2023 End: 08-22-2023 ambulatory DMITRIY RODO Not Available Start: 07-26-2023 End: 07-26-2023 ambulatory DMITRIY RODO Not Available Start: 03-29-2021 End: 03-29-2021 ambulatory Arminda Holt Other [facility] Other Start: 03-29-2021 Office outpatient ne w 20 minutes Arminda Holt [facility] Start: 11-08-2020 End: 11-08-2020 ambulatory LISA BERGMAN Facility:[facility] Start: 08-19-2020 End: 08-20-[address] HAMMAD NIEVES Facility:[facility] Start: 08-17-2020 End: 08-17-[address] HMAMAD NIEVES Facility:[facility] Start: 06-02-2020 End: 06-03-2020 ambulatory HERBERT PACHECO Facility:[facility] Start: 05-20-2020 End: 05-21-[address] ORA BOWERS Facility:[facility] Start: 05-06-2020 End: 05-07-2020 ambulatory HERBERT PACHECO Facility:[facility] Start: 04-29-2020 End: 04-30-2020 ambulatory HERBERT PACHECO Facility:[facility] Start: 04-22-2020 End: 04-23-2020 ambulatory HERBERT PACHECO Facility:[facility] Start: 01-09-2017 End: 01-09-2017 Emergency department patient visit SELF SELF [facility] Procedures Date Procedure Procedure Detail Performing [...] [facility] [address] [place] [address] Janine Guzman PA [address] [place] [address] [facility] Start: 01-01-2024 End: 01-01-2024 Patient encounter procedure 01/01/2024 1:00 PM EDT Routine [facility] [address] [place] [id number] Janine Guzman PA [address] [place], [place] [address] [facility] Start: 12-18-2023 End: 12-17-2024 [...] Type: Not on file Address: [address] [place] [id number] 2022 Unknown BCBS BCBS xxxxxx [id number] 2022-Present [phone] [address] [place] [address] 1.2.840.004416.1.13.693. 2.7.3.235796.315 2022 Unknown [id number] 2017 Unknown [id number] 1989 Unknown [id number] 2.16.840.1.201617.3.579. 2.593 1989 Unknown [id number] 2.16.840.1.720533.3.579. 2.593 1989 Unknown [id number] 2.16.840.1.422115.3.579. 2.593 1989 Unknown [id number] 2.16.840.1.349138.3.579. 2.593 1989 Unknown [id number] 2.16.840.1.201631.3.579. 2.593 1989 Unknown [id number] 2.16.840.1.419628.3.579. 2.593 1989 Unknown [id number] 2.16.840.1.789607.3.579. 2.593 1989 Unknown [id number] 2.16.840.1.838323.3.579. 2.593 1989 Unknown [id number] 2.16.840.1.564960.3.579. 2.1286 1989 Unknown [id number] 2.16.840.1.110273.3.579. 2.1286 1989 Unknown [id number] 2.16.840.1.232375.3.579. 2.1286 1989 Unknown [id number] 2.16.840.1.003228.3.579. 2.1286 1989 Unknown [id number] 2.16.840.1.216753.3.579. 2.1259 1989 Unknown [id number] 2.16.840.1.893956.3.579. 2.1259 1989 Unknown [id number] 2.16.840.1.379355.3.579. 2.1259 1989 Unknown [id number] 2.16.840.1.038997.3.579. 2.1259 1989 Unknown [id number] 2.16.840.1.015721.3.579. 2.9 1989 Unknown [id number] 2.16.840.1.994091.3.579. 2.9 1989 Unknown [id number] 2.16.840.1.306155.3.579. 2.9 1989 Unknown [id number] 2.16.840.1.816382.3.579. 2.1259 1959 Private Health Insurance [id number] 1960 Self-pay [id number] Unknown [id number] 2.16.840.1.515183.19 Social History Date Type Detail Facility Start: 08-22-2023 Sex Assigned At [facility] Other Start: 08-22-2023 End: 01-01-2024 Tobacco smoking status [facility] Ex-smoker [facility] Start: 08-18-2015 End: 09-19-2014 History of tobacco use Current smoker [facility] Start: 08-18-2015 End: 09-19-2014 History [...] Healthcare Start: 07-26-2023 Sexual orientation Heterosexual (finding) [facility] History of Present illness Narrative 01-01-2024 DI [...] nursing note reviewed. Exam conducted with a size changer present. Vitals: Estimated body mass index is [...] Patient care instructions given in writting by [facility] Home document. [facility] Other Evaluation note Note Date & Type [...] section and content) DATE CREATED AUTHOR 09/11/2017 [facility] DATE CREATED AUTHOR AUTHOR'S ORGANIZ ATION 10/18/2019 [facility] DATE CREATED AUTHOR AUTHOR'S ORGANIZ ATION 11/24/2020 [facility] DATE CREATED AUTHOR AUTHOR'S ORGANIZ ATION 04/08/2021 [facility] DATE CREATED AUTHOR AUTHOR'S ORGANIZ ATION 04/18/2021 [facility] Specialist DATE CREATED AUTHOR AUTHOR'S ORGANIZ ATION 06/24/2021 [facility] DATE CREATED AUTHOR AUTHOR'S ORGANIZ ATION 11/24/[address] [facility] DATE CREATED AUTHOR AUTHOR'S ORGANIZ ATION 12/21/2023 [facility] DATE CREATED AUTHOR AUTHOR'S ORGANIZ ATION 01/03/2024 [facility] dical Specialists EPIC REASON FOR VISIT [...] BE BASED ON THE PRIMARY CLINICAL RECORDS. [facility] [employer] provides no warranty or guarantee of the accuracy or completeness of information in this document.
[2024-01-14 14:10] VITALS: BP 124/74; PULSE 102
== END 2024-01-14 14:45 | disposition home or self-care (01) ==
LOC: FBCO 07:11 → FBC 14:04
PROVIDERS: Visit Provider Obstetrics & Gynecology
DX: O26.893 Other specified pregnancy related conditions, third trimester (principal); Z3A.34 34 weeks gestation of pregnancy
CPT/HCPCS: 59025

== ENCOUNTER 2024-01-15 15:27 | Outpatient (OUT) | payer BC, SELFPAY ==
[2024-01-15 15:51] LABS: Basophils Absolute Auto 0.1 10^3/uL (0.0-0.1); Basophils Percent Auto 0.7 % (0.2-2.0); Eosinophils Absolute Auto 0.2 10^3/uL (0.0-0.7); Eosinophils Percent Auto 2.8 % (0.9-7.0); Hematocrit 30.8 % (36.0-48.0); Hemoglobin 10.3 g/dL (12.0-16.0); Immature Granulocytes Abs Auto 0.11 10^3/uL (0.00-0.03); Immature Granulocytes Pct Auto 1.3 % (0.0-0.5); Lymphocytes Percent Auto 24.4 % (20.5-60.0); Mean Corpuscular HGB Conc 33.4 g/dL (29.9-35.2); Mean Corpuscular Hemoglobin 31.7 pg (26.7-34.0); Mean Corpuscular Volume 94.8 fL (81.0-99.0); Mean Platelet Volume 9.7 fL (9.5-13.5); Monocytes Absolute Auto 0.6 10^3/uL (0.3-0.8); Monocytes Percent Auto 6.7 % (1.7-12.0); Neutrophils Absolute Auto 5.3 10^3/uL (1.4-6.5); Neutrophils Percent Auto 64.1 % (43.0-75.0); Platelet Count 274 10^3/uL (150-450); Red Blood Count 3.25 10^6/uL (4.20-5.40); Red Cell Distribution Width 12.4 % (11.0-15.0); White Blood Count 8.2 10^3/uL (4.0-11.0)
== END 2024-01-15 15:28 | disposition home or self-care (01) ==
PROVIDERS: Visit Provider Physician Assistant
DX: Z86.2 Personal history of diseases of the blood and blood-forming organs and certain disorders involving the immune mechanism (principal)
CPT/HCPCS: 36415; 85025

== ENCOUNTER 2024-01-17 07:06 | Outpatient (OUT) | payer BC, SELFPAY ==
--- OUTSIDE RECORDS SUMMARY | 2024-01-17 07:09 | XMS_ITS | CCD ---
Author Organization [facility] CliniSyil Care Team Providers Care Electrolog Operator Name Role Phone SELF, SELF Unavailable [...] Admitting Unavailable JUNIOR, HERBERT Attending Unavailable Arminda Hotl Unavailable MACY BABCOCK Attending Unavailable FLORO, LYNNETTE [...] KOEHLER Attending Unavailable JANINE GUZMAN Attending Unavailable JANINE GUZMAN Attending Unavailable Medications Current Medications Medication Drug Class(es) Dates Sig (Normalized) Sig (Original) [id number] 200 actuat albuterol 0.09 mg/actuat metered dose inhaler (1 source) beta2-Adrenergic Agonist Start: 03-29-2021 take 2 puff(s) by inhalation every four hours as needed Albuterol Sulfate HFA 108 (90 Base) MCG/ACT 2 puffs as needed Inhalation every 4 hrs Mar, Active Iron Carbonyl-Vitamin C-FOS (CHEWABLE IRON PO) (10 sources) Iron Carbonyl-Vitamin C-FOS (CHEWABLE IRON PO) Take by mouth Active omeprazole 20 mg delayed release oral capsule (10 sources) Proton Pump Inhibitor Start: 07-26-2023 End: 07-25-2024 take 1 capsule by mouth before mealtime omeprazole (PriLOSEC) [address] capsule Indications: Heartburn Take 1 capsule (20 mg) by mouth in the morning. Take before meals. Do not crush or chew.. 30 capsule 11 07/26/2023 07/25/2024 Active ondansetron 4 mg disintegrating oral tablet (10 sources) Serotonin-3 Receptor Antagonist Start: 09-07-2023 take 1 tablet by mouth every six hours as needed for nausea ondansetron ODT (Zofran-ODT) 4 MG disintegrating tablet DISSOLVE 1 TABLET IN MOUTH EVERY 6 HOURS NEEDED FOR NAUSEA OR FOR VOMITING 09/07/2023 Active polysaccharide iron complex 391 mg oral capsule (3 sources) Start: 01-15-2024 End: 02-14-2024 take 1 capsule by mouth once daily iron polysaccharides (ProFe) 391.3 (180 Fe) MG capsule Indications: H/O: iron deficiency anemia Take 1 capsule (391.3 mg) by mouth Daily 30 capsule 2 01/15/2024 02/14/2024 Active Pre-Marlene (1 source) Pre- Active MV-Min-Fe Fum-FA-DHA ( 1 PO) (10 sources) MV-Min- Fe Fum-FA-DHA ( 1 PO) Take 1 each by mouth Daily Active valACYclovir 500 mg oral tablet (10 sources) Herpesvirus Nucleoside Analog DNA Polymerase Inhibitor, [...] unspecified, unspecified trimester] Onset: 10-25-2023 Episodic Other hematologic conditions (2 sources) H/O: anemia - iron deficient; Translations: [Personal history of diseases of the blood and blood-forming organs and certain disorders involving the immune mechanism] 01-15-2024 Episodic Other and delivery including normal (10 sources) Encounter for test, result positive; Translations: [...] [32 weeks gestation of ] 01-01-2024 Episodic Residual codes; unclassified (2 sources) Gestation period, 34 weeks; Translations: [34 weeks gestation of ] 01-15-2024 Episodic Screening and history of mental health [...] Episodic Other aftercare (1 source) 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; Translations: [OTH JAIL CURRENT DRUG THERAPY] Onset: 08-19-2020 Episodic Residual codes; unclassified (1 source) History of uterine scar from previous surgery; Translations: [History of uterine scar from previous surgery] Onset: 08-28-2021 Episodic Unclassified (1 source) Hemorrhage in early , unspecified; Translations: [Hemorrhage in early , unspecified] Onset: 01-09-2017 Viral infection (1 source) COVID-19 Onset: 03-29-2021 Resolved: 03-29-2021 Results Test Name Value Interpretation Reference Range Facility ALL CBC WITH AUTO DIFFon BASOPHILS ABSOLUTE AUTO 0.1 N [facility] Basophils/100 WBC (Bld) 0.7 % 0.2 - 2.0 % [facility] Eosinophils/100 WBC (Bld) 2.8 % 0.9 - 7.0 % [facility] Erythrocyte distribution width (RBC) [Ratio] 12.4 % 11.0 - 15.0 % [facility] Hematocrit (Bld) [Volume fraction] 30.8 % Low 36.0 - 48.0 % [facility] Hemoglobin (Bld) [Mass/Vol] 10.3 g/dL Low 12.0 - 16.0 g/dL [facility] IMMATURE GRANULOCYTES ABS AUTO 0.11 High [facility] Immature granulocytes/100 WBC (Bld) 1.3 % High 0.0 - 0.5 % [facility] Interpretation and review of laboratory results Abnormal [facility] LYMPHOCYTES ABSOLUTE AUTO 2 [facility] Lymphocytes/100 WBC (Bld) 24.4 % 20.5 - 60.0 % [facility] MCH (RBC) [Entitic mass] 31.7 pg 26. 7 - 34.0 pg [facility] MCHC (RBC) [Mass/Vol] 33.4 g/dL 29.9 - 35.2 g/dL [facility] MCV (RBC) [Entitic vol] 94.8 fL 81.0 - 99.0 fL [facility] MONOCYTES ABSOLUTE AUTO 0.6 N [facility] Monocytes/100 WBC (Bld) 6.7 % 1.7 - 12.0 % [facility] NEUTROPHILS ABSOLUTE AUTO 5.3 [facility] Neutrophils/100 WBC (Bld) 64.1 % 43.0 - 75.0 % [facility] Platelet mean volume (Bld) [Entitic vol] 9.7 fL 9.5 - 13.5 fL [facility] TB EO # 0.2 [facility] [address] [address] [facility] TB RBC 3.25 Low [facility] TB WBC 8.2 [facility] Urinalysis macro (dipstick) panel (U)on 01-15-2024 Bilirubin, UA Negative Negative - 4(70) +++ mg/dL [facility] Blood, UA Negative Negative - 50 Wili/mcL [facility] Clarity, UA Clear [facility] Color, UA Yellow [facility] Glucose, UA Negative Negative - 1999(110) ++++ mg/dL [facility] Interpretation and review of laboratory results Normal [facility] Ketones, UA Negative Negative - 160(16) ++++ mg/dL [facility] Leukocytes, UA Negative Negative - 500+++ Yajaira/mcL [facility] Nitrite, UA Negative Negative - Positive [facility] pH, UA 7 5 - 9 [facility] Protein, UA Negative Negative - 1999(20) ++++ mg/dL [facility] Spec Grav, UA 1.02 1 - 1.03 [facility] Urobilinogen, UA 0.2 0.2 - 12 mg/dL [facility]inalysis macro (dipstick) panel (U)on 01-01-2024 Bilirubin, UA Negative Negative - 4(70) +++ mg/dL [facility] Blood, UA Negative Negative - 50 Wili/mcL [facility] Clarity, UA Clear [facility] Color, UA Yellow [facility] Glucose, UA Negative Negative - 1999(110) ++++ mg/dL [facility] Interpretation and review of laboratory results Abnormal [facility] Ketones, UA Positive Negative - 160(16) ++++ mg/dL [facility] Comment on above: trace Leukocytes, UA Negative Negative - 500+++ Yajaira/mcL [facility] Healthcare Nitrite, UA Negative Negative - Positive [facility] pH, UA 7 5 - 9 [facility] Protein, UA Positive Negative - 1999(20) ++++ mg/dL [facility] Comment on above: 30 Spec Grav, UA 1.025 1 - 1.03 [facility] Urobilinogen, UA 0.2 0.2 - 12 mg/dL [facility] Urinalysis macro (dipstick) panel (U)on 12-18-2023 Bilirubin, UA Negative Negative - 4(70) +++ mg/dL [facility] Blood, UA Negative Negative - 50 Wili/mcL [facility] Clarity, UA Clear [facility] Color, UA Yellow [facility] Glucose, UA Negative Negative - 1999(110) ++++ mg/dL [facility] Interpretation and review of laboratory results Abnormal [facility] Ketones, UA Negative Negative - 160(16) ++++ mg/dL [facility] Leukocytes, UA Negative Negative - 500+++ Yajaira/mcL [facility] Nitrite, UA Negative Negative - Positive [facility] pH, UA 6.5 5 - 9 [facility] e Protein, UA Trace Negative - 1999(20) ++++ mg/dL [facility] Spec Grav, UA 1.030 1 - 1.03 [facility] Urobilinogen, UA 0.2 0.2 - 12 mg/dL [facility] Complete Blood Count Auto Di ffon 06-14-2021 Basophils (Bld) [#/Vol] 0.0 10*3/uL Normal 0.0-0.2 [facility] Comment on above: Result Comment: PERF ORMED BY: [place] [address] PATHOLOGIST CONTROL VALVE MECHANIC STEPHANIE ROACH M.D. Performed By: #### C BC #### [facility] [address] [place] [address] [place] Basophils/100 WBC (Bld) 0.6 % Normal . [facility] Comment on above: Performed By: #### C BC #### [facility] [address] [place] [address] [place] Eosinophils (Bld) [#/Vol] 0.1 10*3/uL Normal 0.0-0.45 [facility] Comment on above: Performed By: #### C BC #### [facility] [address] [place] [address] [place] Eosinophils/100 WBC (Bld) 1.7 % Normal . [facility] Comment on above: Performed By: #### C BC #### [facility] [address] Erythrocyte distribution width (RBC) [Ratio] 13.5 % Normal 11.9-15.3 [facility] Comment on above: Performed By: #### C BC #### [facility] [address] Hematocrit (Bld) [Volume fraction] 30.6 % Low 34.0-46.4 [facility] Comment on above: Performed By: #### C BC #### [address] Hemoglobin (Bld) [Mass/Vol] 10.2 g/dL Low 11.8-15.4 [facility] Comment on above: Performed By: #### C BC #### [address] Lymphocytes (Bld) [#/Vol] 2.1 10*3/uL Normal 1.00-4.8 [facility] Comment on above: Performed By: #### C BC #### [address] Lymphocytes/100 WBC (Bld) 24.1 % Normal . [facility] Comment on above: Performed By: #### C BC #### [address] MCH (RBC) [Entitic mass] 31.4 pg Normal 24.7-34.3 [facility] Comment on above: Performed By: #### C BC #### [address] MCV (RBC) [Entitic vol] 94.0 fL Normal 80-100 [facility] Comment on above: Performed By: #### C BC #### [address] Mean Corpuscular HGB Conc 33.4 g/dL Normal 32.0-35.0 [facility] Comment on above: Performed By: #### C BC #### [place] [address] [place] Monocytes (Bld) [#/Vol] 0.4 10*3/uL Normal 0.0-0.8 [facility] Comment on above: Performed By: #### C BC #### [facility] [address] Monocytes/100 WBC (Bld) 4.9 % Normal . [facility] Comment on above: Performed By: #### C BC #### [facility] [address] Neutrophils (Bld) [#/Vol] 5.9 10*3/uL Normal 1.8-7.7 [facility] Comment on above: Performed By: #### C BC #### [address] Neutrophils/100 WBC (Bld) 68.7 % Normal . [facility] Comment on above: Performed By: #### C BC #### [address] Nucleated RBC/100 WBC (Bld) [Ratio] 0.1 % Normal 0-0.5 [facility] Comment on above: Performed By: #### C BC #### [address] Platelet mean volume (Bld) [Entitic vol] 8.0 fL Normal 6.3-10.7 [facility] Comment on above: Performed By: #### C BC #### [place] [address] [place] Platelets (Bld) [#/Vol] 298 10*3/uL Normal 150-450 [facility] Comment on above: Performed By: #### C BC #### [place] [address] [place] RBC (Bld) [#/Vol] 3.25 10*6/uL Low 3.60-5.00 [facility] Comment on above: Performed By: #### C BC #### [place] [address] [place] WBC (Bld) [#/Vol] 8.6 10*3/uL Normal 4.5-11.0 [facility] Comment on above: Performed By: #### C BC #### [facility] [address] [place] [address] [place] Dipstick and Microscopicon 0 06-14-2021 Appearance (U) Clear Normal Clear [facility] Comment on above: Order Comment: Name Collection Type:: Clean-Voided Midstream Performed By: #### A DDONUAPLUS, OBUDS #### [place] [address] [place] Bacteria,Urine None Seen Normal None Seen [facility] Comment on above: Order Comment: Name Collection Type:: Clean-Voided Midstream Performed By: #### A DDONUAPLUS, OBUDS #### [place] [address] [place] Bilirubin,Urine Negative Normal Negative [facility] Comment on above: Order Comment: Name Collection Type:: Clean-Voided Midstream Performed By: #### A DDONUAPLUS, OBUDS #### [place] [address] [place] Color (U) Yellow Normal Yellow [facility] Comment on above: Order Comment: Name Collection Type:: Clean-Voided Midstream Performed By: #### A DDONUAPLUS, OBUDS #### [facility] [address] [place] [address] [place] Glucose Ql (U) Normal Normal Normal [facility] Comment on above: Order Comment: Name Collection Type:: Clean-Voided Midstream Performed By: #### A DDONUAPLUS, OBUDS #### [facility] [address] [place] [address] [place] Hyaline Casts,Urine 0-8 Normal 0-8 [facility] Comment on above: Order Comment: Name Collection Type:: Clean-Voided Midstream Result Comment: PERF ORMED BY: [place] [address] PATHOLOGIST CONTROL VALVE MECHANIC STEPHANIE ROACH M.D. Performed By: #### A DDONUAPLUS, OBUDS #### [facility] [address] [place] [address] Ketones Ql (U) Negative Normal Negative [facility] Comment on above: Order Comment: Name Collection Type:: Clean-Voided Midstream Performed By: #### A DDONUAPLUS, OBUDS #### [address] Leukocyte esterase Test strip Ql (U) Negative Normal Negative [facility] Comment on above: Order Comment: Name Collection Type:: Clean-Voided Midstream Performed By: #### A DDONUAPLUS, OBUDS #### [place] [address] [place] Nitrite,Urine Negative Normal Negative [facility] Comment on above: Order Comment: Name Collection Type:: Clean-Voided Midstream Performed By: #### A DDONUAPLUS, OBUDS #### [address] Occult Blood,Urine 3+ High Negative [facility] Comment on above: Order Comment: Name Collection Type:: Clean-Voided Midstream Result Comment: PERF ORMED BY: [place] [address] PATHOLOGIST CONTROL VALVE MECHANIC STEPHANIE ROACH M.D. Performed By: #### A DDONUAPLUS, OBUDS #### [place] [address] [place] pH (U) 7.5 [pH] Normal 5.0-9.0 [facility] Comment on above: Order Comment: Name Collection Type:: Clean-Voided Midstream Performed By: #### A DDONUAPLUS, OBUDS #### [place] [address] [place] Protein,Urine Negative Normal Negative [facility] Comment on above: Order Comment: Name Collection Type:: Clean-Voided Midstream Performed By: #### A DDONUAPLUS, OBUDS #### [place] [address] [place] RBC,Urine 20-49 High 0-4 [facility] Comment on above: Order Comment: Name Collection Type:: Clean-Voided Midstream Performed By: #### A DDONUAPLUS, OBUDS #### [facility] [address] [place] [address] Specificy [place],Urine 1.009 Normal 1.001-1.030 [facility] Comment on above: Order Comment: Name Collection Type:: Clean-Voided Midstream Performed By: #### A DDONUAPLUS, OBUDS #### [address] Squamous Epithelial Cell,Urine 1-2 Normal 0-2 [facility] Comment on above: Order Comment: Name Collection Type:: Clean-Voided Midstream Performed By: #### A DDONUAPLUS, OBUDS #### [address] Urobilinogen,Urine Normal Normal Normal [facility] Comment on above: Order Comment: Name Collection Type:: Clean-Voided Midstream Performed By: #### A DDONUAPLUS, OBUDS #### [facility] [address] [place] [address] [place] WBC,Urine None Seen Normal 0-4 [facility] Comment on above: Order Comment: Name Collection Type:: Clean-Voided Midstream Performed By: #### A DDONUAPLUS, OBUDS #### [facility] [address] [place] [address] OB Urine Drug Screen (NO THC )on 06-14-2021 Amphetamine Screen,Urine Negative Normal Negative [facility] Comment on above: Performed By: #### A DDONUAPLUS, OBUDS #### [facility] [address] [place] [address] Barbiturate Screen,Urine Negative Normal Negative [facility] Comment on above: Performed By: #### A DDONUAPLUS, OBUDS #### [facility] [address] [place] [address] Benzodiazepines Screen,Urine Negative Normal Negative [facility] Comment on above: Performed By: #### A DDONUAPLUS, OBUDS #### [facility] [address] Cocaine Screen,Urine Negative Normal Negative [facility] Comment on above: Performed By: #### A DDONUAPLUS, OBUDS #### [facility] [address] Opiate Screen,Urine Negative Normal Negative [facility] Comment on above: Performed By: #### A DDONUAPLUS, OBUDS #### [facility] [address] Phencyclidine Screen, Urine Negative Normal Negative [facility] Comment on above: Result Comment: Thes e are unconfirmed results and should not be used for legal purposes. Drug Cut-Off Concentration: AMPH 1000 ng/mL NOLBERTO 200 ng/mL BAINCA 200 ng/mL COCM 300 ng/mL OP 300 ng/mL PCP 25 ng/mL PERFORMED BY: [place] [address] PATHOLOGIST CONTROL VALVE MECHANIC STEPHANIE ROACH M.D. Performed By: #### A DDONUAPLUS, OBUDS #### [facility] [address] US OB 2nd/3rd Trimesteron OB 2nd/3rd [...] 4.6 cm (19 weeks, 6 days) Head Zjqwtwvvraqzn89.3 cm (19 weeks, 0 days) Abdominal Yufvurvixguoc54.6 cm (19 weeks, 0 days) Femur Length 3.1 cm (19 weeks, 3 days) PresentationBreech Weight (g) by Ecplyguwpa10.4%* These measurements result in an estimated date [...] by Ayo Jiménez on 04/18/2021 0921 Normal [facility] Greenhouse Technician Coding Summaryon 04-07-2021 Coding Summary HTMLBase 64 FvghpscsLIe3bEj+PG hlYWQ+CN5NFAGnW85q yHZtvK4HY8fVBB8SGM AWBJTLPX2HWE8wpUB0 HYwwX1MargWb OwtrwKGjTB09OXa4UV E8tRigYFthdQ0zhNOj E0m8CaJzWH06uH29JS qeTPPnSsL4ToReeopw bWFy I6ybQuFupRLuFgv+PH RhYmxlIHdpZHRoPScx TMGoRwGzfJrtQY0eSy 9yZGVyLWNvbGxhcHNl OiBj y4bzOWJkRIdrQD7dbJ nuG1VnhSR8HLEyl7o1 En29yDN+XPRwPGZ3wG xaCPdua161IrRdu3nt IDM3 nAJrVAtoGZS4H81kx1 Y8IYRyQCYgQXH6sHT1 yT6ghOozfzjiX3VxcS CaCbC5IFJ2uMOocS9x bGln vudmqB1oHew+Q09ESU 9RBYBFQI0MMmb5P5Us PjwvdHI+ON20PFUlBX 50lZYfkINqk3qptTi6 JzEw GYPhDKR3dQkyJSrsc8 HpMIMnY79dlUZix0A4 IGNvbGxhcHNlOyBlbX U3aK7qTKbojugan4sb dzsn Ndztk1nfrc67qP32H8 1rRHrlIYWxEUV6NWGn AZEfyQrrri3xhT7gBi 8+WPnsk9zrb1hpvZp8 IjIw TQAcawDtyMmkZMS9h2 WqJs50R9IqbNtwg5Pa Mit1uw48dOPru9I7eM H4TPsqTTZivV9wCFik ZnQ6 GJGiCvBmwA74vYItHW zeEy4ifRvalVjdRI1z OXGrxuvoEBPmxZ0lBO JhyNPvpHnnWA7kZYYu bjtm b297PaTrJKS3CWNegE SrS4MgnT6eDeWnRVAm HVZpW0TqkKFkPPkbQ8 75ZDacEmL0ZSFcovVr Y2Fs MNMzaGtkTtB6l8G0Ow 0Mo9ZfjjzhSEV6CCkc ZEHlPkEiHqCkDoG9Q2 IiJhy0MUVrkUplFR9d J3Bh HHUoaqrxgcyhtQT0NE EdPSJkxJ95sRPwJAku Np4kn4Q0m957YBMnUD WmaD19Pz8unZevTIAr dCBU sB3yibzxh4kpolxnJr SxLICiEQh2LGc2PPJw jKwdDcRhCDY5MhQ7ZK L8xAOwnP8zuUhvdgyk dG9w Oyc+O66nhP1xPTJ0BS T9ciqoXKMtlvVpTZ62 ZM79L7CgJvznmTUmqT U+CYLyjuWaoCvdRA2r YmFj u2uqr7UrEKjjM4MjKP KjEGrsVmx4YFYiDNL1 zZG5yX1iXJHbSCkqf4 Z2qLM5O6MrrcTntu3l b2xs GJIcTJssD24dxXWdu5 B6NQPrgHO8YECcqQrc FhMfqW86Dwj+PGNvbG rim3VvWxgap3mcw0xm dGg9 IjMwJSIgdmFsaWduPS L2n6GnQq92V28jEFqy ZHRoPSIxNSUiIHZhbG ughk8bfZ6pEq1+PGNv bCB3 vOP0jI5nJOCtZpC6LH liT315BvTciDHlYcpm h7dtb7hpeIr5KkCuRG XjxpZsgWslMBH6o6Iz Lz48 F89yRWgfVRLmEGHiVU NhCKFwfOcnwa4kfH7r Ii8+NB8gs8jrns08bY 48dHI+NOWuMTG8wElq PSdw PMOeyI6pAVztPvM0TJ XwQxVlgQ74yUCqIMih Li1uxFmoyIczXR8xRC Vrckrvg988CzAuh9ki IDEw pHAuWXlqCCO3H40rz6 R3KDLdHAKzEVV6uYR9 bQ6rdBebgwefdIEmyQ sgdmVydGljYWwtYWxp Z246 IHRvcDsnPlBhdGllbn ZmRcLwHQc6B6JbDsh7 GAYntGojLJ4vcDZiWD teBr6wlIhncJgrAV0r NTBp zhrwy615GrQns4mbEU IlqZVoZBtsYIM4T43t n2K6GQXhXZPxPNR0uX P4bM8zbTdxxfwuyADf dDsg dmVydGljYWwtYWxpZ2 46IHRvcDsnPkJpcnRo KBUgnDF2UC79CE01pF Iku1G3dKM8H0BvEVWd bmct codncUS4QZRdEVQgiA 81Tc7bzCyrMh2pMTPk CJA7KIZouUEaI3PtiH 1gQeTsCQGfHTXuU4Yn eHQt LMrfE219AUhmIcJ2ZZ QezbAeM5YcTHAroTwk PuN2a5T1Fb2RV9U4XG 97WN96mLVsx7K1yEB6 J3Bh KIZvxazvtatmoBP1CT IdSFHzkM12Bg0qvBlr Wo6zWOJgOAQ7FKFygS IcT5KjlN8pFdOyOERo MDAw D7BctBHeMAigK465EO ijThV3EFHwldJeN3Pf WIZzyHdmLmJ6q9D9Af 6GPVe9RL49CB48lBLa c3R5 oBX7M4EwOIPeyvyakb eozDJ9MRPcPIQmiY10 Ff1tnMuoMv1uSRQwEZ A9SNLkyZWvG1CjqQ5i OiAj OOHuAKWpI2AgkHGsQA juJ160UEmmIaH5BWSu rjLmT6FcIBAmcChiQi G5e9E3Lr9EWCErOT84 IFR5 kND2TL08AU51Z8HgVh wvdGFibGU+PHRhYmxl IHdpZHRoPScxMDAlJy XveUoiOO0rJw4cPROq LWNv oXahcSNrTsLky7pyFH HuHZulUT6smNvdG4Hz kXM7ORJlk2m9Ta23L3 1zI2WsmXF+PGNvbCB3 aWR0 bW9lTiGdBeA1BAhfA3 37QhCcvPJsPjzjc9wf z6twwTo7AxB3OGWowc QhfNqvHWF1d8MsFd70 Y29s IHdpZHRoPSIxNSUiIH XfuKteku4slR2hCt7+ GTExdJN6lJT8aY2qLe WwYfD5QUldG958LaBf cCIv Lkuky7lkq7thwFl3Ka IwJSIgdmFsaWduPSJ0 e8BcOi73J9OucLcgb7 YgVah8km54fMVao4J8 bGU9 Z0OgYXYunxnucLXmjE eoPQ1xJNVnihzgISFa hB2sBHUyF2c7UqIoEi U8MAsgY1RjaaS2JHQp cHQg NWyxKAL9A17cb6K6ZR UiIZBnFKR4bHO8hO8o bGlnbjogbGVmdDsgdm NcgIinAHtpMTikT143 IHRv tTmwISDyyX5wMOYlxC JgkUafYJ5cBXXjoege UlJQWwGYGkowZJ2QUC XITFV1S5TsDba5VSXo dHls MF8veAZjYIgoIe7zjL akoMmwXE1wDZBfxfcj XRPvhO1lKXHzuUGxnJ xfBL2tPCOqqqubq165 OiAx SYB0WOKvhSJdE8NtzD 7lDoFpKWFbPJMjA5Ai jEEnOWxtZ839JRqrKi T5JQAngkVhL6MtJGFl aWdu SjW5e8Z6Xw9fMr8hUp 5qERtyIO00LC15eUYu i6P4tEV8Y7IrIIHizk kftvfchHB2REScUTVv aW47 oJBrUSloGi6oa0P3h6 85QBUpVJNlxY00Ph4h nXqyVYVbjIUMbP9ccl wps2liexrjZwTxZWBw MDt0 TPv5WCGofFwiBvCdGG L7VvI5VHA1sYKqfO9m xNexmykxoS1lPqp+Mz VkUFDkuwH6J7QzVuy3 ZCBz kAbiFZ8qbFKgQSscHp 8dvGtjaQtdXR7yNZDj xgemDJUfdC5aKHHrjE YtcAdxTB5eTICqkqqu b250 YwUcJGI5KYQjoNPeV0 NizA9kKfZmUCFrMALl K9WrwOHzTUlrQ819AI eaQwW3VYDicnPdC7Ed LWFs tMabQhR5s0Z1Pf9BKN 0CWUH5Z1WpHqa5ZVHq uJrqSY0xvHPyLWtjOp 1rwCbtsCbzQA8tNNMr bjtw QZXslI2pHMYktFMkoW xiNI9bJFSfmalpl482 RsQdFUO0IXWacYAyG6 HmcI1nFbOwXLGiZAHj O3Rl kOQgKMnfR874GPnlNa T3OBLrmhHaD8AxTTYs rPjdSfL9y5Y4Ok2JCE wvdGQ+DQ42pv16Y8Wj Ymxl Hvb1MBCiCKM4vWW3iR 1mGWXoLEari9F7fNI6 P2RjgxBpwe1st5sqVI FgBWjxG03hdQAez9Y0 IGVt oTC4LPUoaQegBxExdB 93Oyc+RBMkuVzms6Qu Cdojr7lct6qniNc1Ho MwJSIgdmFsaWduPSJ0 b3Ai Nm08U07uHChdGCEaTQ TrJDJiNCSijJfaff9y lG9nMi1+RGAouAZ5pH W1mB1eIjZjDxX1BDdr Z249 ZgDouBWdEogyu9mrw0 ujkUh3XeZnVUWibxFg yOzwARY9z3YqQc50U0 ZohWhod7IuLpu6nq35 dGQg g8Q8aYF1N1YfLECyny yypBAkaSfmVE6rZPEk buxjRGFloA8gWVClA6 b2XbYbUnI3KLncH0Kw bnQ6 IGJvbGQgMTBwdCBUaW 1zbfstu2vcesnhWtDt FPFfUCx9LFi6XCQnlE vtSwPlDDH2HjK1THA0 aWNh tL2pcKmfcrnuwS7pRr c+YHi9r6yeuZAaBB7l vWB6RB71LG90zBGbw1 K1qTZ7Z6PoPVOpizmm cmln xHD1KKOvFXZbhN03Qw 2qpPbuFr8yTFXxJID8 VXVzrOAgB0AvnA4eXe UmAKNcVARqL6PilYIs YWxp Q222DAsbTsZ0NMHrqd JgD5EdIKJmbFcyXxN8 u4R8Ha7EHF51WI30GY 61kLZby4V7mDN2V9Ej ZGRp wsuvqykbeOB5FRPoCW WuaC81Af3duLnmEp5e QSZxFNM8PKEitCGcZ2 EhgV4nKqYlBBCaMHQj O3Rl gBUjXNkqW257RMayFo F1QUKdrrKlV0RuJIFi zDzdIqB8s0C5Xi5UNe 15AY38RT50dUSnu3L2 bGU9 J9CyZLQckbtgiuttrI S6KECyQMQprW52Gg0u tYdkHm5zKUZuNIZ4GL DaaXQaS6GqzG8vNgWh MDAw OEEqG5SjqHTwQAtaF2 15WVktYxM7DDAafgNy E4UuVCNbtKdnZjV9l0 M9No1ZUBssste8F3Pm Pjwv dHI+BQ00OHKfJU13dL IvvJZlk3xzxCk2UxXf YEEfWKS0vFadYStmw9 ZpGWEmP41btGDaw4L9 IGNv bGx (more content not included)... [facility] Consent Formson 04-01-2021 Consent Forms [id number]01-[facility]21 Provider Orders [id number] Quick Testingon 2021 Result Positive [employer] Other HERPES SIMPLEX VIRUS 1/2 DNA PCRon 11-11-2020 HSV-1 DNA Negative Normal Negative [facility] Comment on above: Performed By: #### C BC #### [facility] [address] [place], [place] [id number] Sunshine Carlos HSV-2 DNA Positive Abnormal Negative [facility] Comment on above: Result Comment: This test was developed and its performance characteristics determined by [employer]. It has not been cleared or approved by the [place] Food and Drug Administration. The FDA has determined that such clearance or approval is not necessary. This test is used for clinical purposes. It should not be regarded as investigational or research. Performed By: #### C BC #### [facility] [address] [place], [place] [id number] Sunshine Breanna CULTURE URINEon 11-10-2020 CULTURE URINE Isolate 1 Streptococcus pyogenes >100,000 cfu/mL of ORGANISM 1 Streptococcus pyogenes ANTIBIOTIC M.I.C RX STATUS Benzylpenicillin <=0.06 S F Ampicillin <=0.25 S F Cefotaxime <=0.12 S F Ceftriaxone <=0.12 S F Levofloxacin 0.5 S F Erythromycin 4 R F Clindamycin <=0.25 S F Linezolid <=2 S F Vancomycin <=0.12 S F Tetracycline <=0.25 S F Normal [facility] Comment on above: Performed By: #### C BC #### [facility] [address] [place] [address] Sunshine Carlos CHLAMYDIA/GONOCOCCUS TINA ( AB/URINE/PAPon 11-09-2020 Chlamydia trachomatis, TINA Negative Normal Negative [facility] Comment on above: Performed By: #### C T/NGNA #### [facility] [address] [place] [address] Sunshine Carlos Neisseria gonorrhoeae, TINA Negative Normal Negative [facility] Comment on above: Performed By: #### C T/NGNA #### [facility] [address] [place] [address] Sunshine Carlos [facility] SARS-CoV-2 (COVID-19) RNA TINA+probe Ql (Unsp spec) Not detected Normal NOT DETECTED [facility] Comment on above: Result Comment: This test is not yet approved or cleared by the [place] FDA. When there are no FDA-approved or cleared tests available, and other criteria are met, FDA can make tests available under an emergency access mechanism called an Emergency Use Authorization (EUA). The EUA for this test is supported by the [place] of Health and Human Service's (HHS's) declaration [...] with SARS-CoV-2. Performed By: #### C VDAGS, CVDTB #### [facility] [address] [place] [address] Sunshine Breanna ER URINE PROFILEon 1 Bilirubin Ql (U) Negative Normal NEGATIVE [facility] Comment on above: Performed By: #### C BC #### [facility] [address] [place] [address] Sunshine Breanna Clarity (U) CLEAR Normal CLEAR [facility] Comment on above: Performed By: #### C BC #### [facility] [address] [place] [address] Sunshine Breanna Color (U) LT. YELLOW Normal YELLOW [facility] Comment on above: Performed By: #### C BC #### [facility] [address] [place] [address] Sunshine Breanna ERUAHD A micrscopic examination will be performed if indicated. Normal [facility] Comment on above: Performed By: #### C BC #### [facility] [address] [place] [address] Sunshine Breanna Glucose Ql (U) Negative Normal NEGATIVE The [facility] Comment on above: Performed By: #### C BC #### [facility] [address] [place] [address] Sunshine Breanna Hemoglobin Ql (U) LARGE Abnormal NEGATIVE [facility] Comment on above: Performed By: #### C BC #### [facility] [address] [place] [address] Sunshine Breanna Ketones Ql (U) Negative Normal NEGATIVE [facility] Comment on above: Performed By: #### C BC #### [facility] [address] [place] [address] Sunshine Breanna LEUKOCYTES Negative Normal NEGATIVE [facility] Comment on above: Performed By: #### C BC #### [facility] [address] [place] [address] Sunshine Breanna Nitrite Ql (U) Negative Normal NEGATIVE [facility] Comment on above: Performed By: #### C BC #### [facility] [address] [place], [place] [id number] Sunshine Carlos pH (U) 5.5 [pH] Normal 5-9 [facility] Comment on above: Performed By: #### C BC #### [facility] [address] [place] [address] Sunshine Carlos SPEC GRAVITY >=1.030 Abnormal 1.005-<=1.02 5 [facility] Comment on above: Performed By: #### C BC #### [facility] [address] [place] [address] Sunshine Carlos UA PROTEIN Negative Normal NEGATIVE/ TRACE [facility] Comment on above: Performed By: #### C BC #### [facility] [address] [place] [address] Sunshine Carlos UR MICRO IND INDICATED Normal [facility] Comment on above: Performed By: #### C BC #### [facility] [address] [place] [address] Sunshine Carlos Urobilinogen Qn (U) 0.2 {Braden'U}/dL Normal 0.2 - 1. 0 [facility] Comment on above: Performed By: #### C BC #### [facility] [address] [place] [address] Sunshine Carlos URon 11-08-2020 , QUAL Negative Normal NEGATIVE [facility] Comment on above: Performed By: #### C BC #### [facility] [address] [place] [address] Sunshine Carlos STREPT SCREENon 11-08-2020 STREP SCREEN A Positive Abnormal NEGATIVE [facility] Comment on above: Performed By: #### C BC #### [facility] [address] [place], [place] [id number] Sunshine Carlos SYMPTOMATIC COVID-19 ANTIGEN on 11-08-2020 EUA Statement SEE BELOW Normal [facility] Comment on above: Result Comment: This [...] Performed By: #### C JAYMIES, CVDTB #### [facility] [address] [place] [address] Sunshine Carlos SARS-CoV-2 (COVID-19) RNA TINA+probe Ql (Unsp spec) Negative Normal NEGATIVE [facility] Comment on above: Result Comment: CONF IRMATION BY PCR PENDING PER CDC GUIDELINES/ SYMPTOMATIC PATIENT. Performed By: #### C IVELISSE, CVDTB #### [facility] [address] [place] [address] Sunshine Breanna URINE MICROSCOPIC ONLYon AMORPHOUS CRYSTALS FEW Normal The [facility] Comment on above: Performed By: #### C BC #### [facility] [address] [place] [address] Sunshine Breanna BACTERIA SMALL Abnormal NONE SEEN [facility] Comment on above: Performed By: #### C BC #### [facility] [address] [place] [address] Sunshine Breanna Bacteria identified Cx Nom (U) INDICATED Normal [facility] Comment on above: Performed By: #### C BC #### [facility] [address] [place] [address] Sunshine Breanna CAST NONE SEEN Normal NONE SEEN [facility] Comment on above: Performed By: #### C BC #### [facility] [address] [place] [address] Sunshine Breanna Crystals LM Nom (Urine sed) SEEN Abnormal NONE SEEN [facility] Comment on above: Performed By: #### C BC #### [facility] [address] [id number] Sunshine Carlos Epithelial cells LM Ql (Urine sed) MODERATE Abnormal NONE SEEN /RARE [facility] Comment on above: Performed By: #### C BC #### [facility] [address] [address] Sunshine Breanna MUCOUS MODERATE Abnormal NONE SEEN [facility] Comment on above: Performed By: #### C BC #### [facility] [address] [place] [address] Sunshine Breanna RBC 2-5 Abnormal 0-2 [facility] Comment on above: Performed By: #### C BC #### [facility] [address] [place] [address] Sunshine Breanna WBC 5-10 Abnormal NONE SEEN [facility] Comment on above: Performed By: #### C BC #### [facility] [address] [place] [address] Sunshine Breanna US SINGLE QUAD RT UPPERon [...] EDMUNDO GUZMAN Date: 2020-08-19 15:23 Normal [facility] AMYLASEon 08-17-2020 Amylase [Catalytic activity/Vol] 49 U/L Normal 31-110 [facility] Comment on above: Performed By: #### C BC #### [facility] [address] [place], [place] [id number] Sunshine Breanna CBC AUTO DIFFon 08-17-2020 BASO # 0.0 103/ul Normal 0.0-0.1 [facility] Comment on above: Performed By: #### C BC #### [facility] [address] [place], [place] [id number] Sunshine Breanna Basophils/100 WBC (Bld) 0.6 % Normal 0.2-2.0 [facility] Comment on above: Performed By: #### C BC #### [facility] [address] [place], [place] [id number] Sunshine Breanna EO # 0.1 103/ul Normal 0.0-0.7 [facility] Comment on above: Performed By: #### C BC #### [facility] [address] [place], [place] [id number] Sunshine Breanna Eosinophils/100 WBC (Bld) 1.3 % Normal 0.9-7.0 [facility] Comment on above: Performed By: #### C BC #### [facility] [address] [place], [place] [id number] Sunshine Breanna Erythrocyte distribution width (RBC) [Ratio] 13.0 % Normal 11.0-15.0 [facility] Comment on above: Performed By: #### C BC #### [facility] [address] [place], [place] [id number] Sunshine Breanna Hematocrit (Bld) [Volume fraction] 39.1 % Normal 36.0-48.0 [facility] Comment on above: Performed By: #### C BC #### [facility] [address] [place], [place] [id number] Sunshine Breanna Hemoglobin (Bld) [Mass/Vol] 13.2 g/dL Normal 12.0-16.0 [facility] Comment on above: Performed By: #### C BC #### [facility] [address] [place], [place] [id number] Sunshine Breanna IG # 0.01 10e3/ul Normal 0.00-0.03 [facility] Comment on above: Performed By: #### C BC #### [facility] [address] [place] [address] Sunshine Carlos IG % 0.1 % Normal 0.0-0.5 [facility] Comment on above: Performed By: #### C BC #### [facility] [address] [place] [address] Sunshine Carlos LYMPH # 2.4 103/ul Normal 1.2-3.8 [facility] Comment on above: Performed By: #### C BC #### [facility] [address] [place] [address] Sunshine Carlos Lymphocytes/100 WBC (Bld) 33.5 % Normal 20.5-60.0 [facility] Comment on above: Performed By: #### C BC #### [facility] [address] [place] [address] Sunshine Carlos MANUAL DIFF REQ NO Normal [facility] Comment on above: Performed By: #### C BC #### [facility] [address] [place] [address] Sunshine Carlos MCH (RBC) [Entitic mass] 30.6 pg Normal 26.7-34.0 [facility] Comment on above: Performed By: #### C BC #### [facility] [address] [place] [address] Sunshine Carlos MCHC (RBC) [Mass/Vol] 33.8 g/dL Normal 29.9-35.2 [facility] Comment on above: Performed By: #### C BC #### [facility] [address] [place] [address] Sunshine Carlos MCV (RBC) [Entitic vol] 90.7 fL Normal 81.0-99.0 [facility] Comment on above: Performed By: #### C BC #### [facility] [address] [place] [address] Sunshinevinita Carlos MONO # 0.3 103/ul Normal 0.3-0.8 [facility] Comment on above: Performed By: #### C BC #### [facility] [address] [place], [place] [id number] Sunshinevinita Gonzalezen Monocytes/100 WBC (Bld) 4.1 % Normal 1.7-12.0 [facility] Comment on above: Performed By: #### C BC #### [facility] [address] [place], [place] [id number] Sunshine Breanna NEUT # 4.2 103/ul Normal 1.4-6.5 [facility] Comment on above: Performed By: #### C BC #### [facility] [address] [place], [place] [id number] Sunshine Carlos Neutrophils/100 WBC (Bld) 60.4 % Normal 43.0-75.0 [facility] Comment on above: Performed By: #### C BC #### [facility] [address] [place] [address] Sunshine Carlos Platelet mean volume (Bld) [Entitic vol] 10.7 fL Normal 9.5-13.5 [facility] Comment on above: Performed By: #### C BC #### [facility] [address] [place], [place] [id number] Sunshine Breanna PLT 321 103/ul Normal 150-450 [facility] Comment on above: Performed By: #### C BC #### [facility] [address] [place] [address] Sunshine Breanna RBC 4.31 106/ul Normal 4.20-5.40 [facility] Comment on above: Performed By: #### C BC #### [facility] [address] [place], [place] [id number] Sunshine Breanna WBC 7.0 103/ul Normal 4.0-11.0 [facility] Comment on above: Performed By: #### C BC #### [facility] [address] [place], [place] [id number] Sunshinevinita Gonzalezen LIPASEon 08-17-2020 Lipase [Catalytic activity/Vol] 97.0 U/L Normal 23.0-300.0 [facility] Comment on above: Performed By: #### T CANDE, CMP, LIPA, JANINE #### [facility] [address] [place] [address] Sunshine Breanna PROF 14(COMP METB)on 021 Albumin [Mass/Vol] 3.5 g/dL Normal 3.5-5.0 [facility] Comment on above: Performed By: #### T CANDE, CMP, LIPA, JANINE #### [facility] [address] [place] [address] Sunshine Breanna Albumin/Globulin [Mass ratio] 0.8 {ratio} Normal [facility] Comment on above: Performed By: #### T CANDE, CMP, LIPA, JANINE #### [facility] [address] [place] [address] Sunshine Breanna ALP [Catalytic activity/Vol] 64 U/L Normal 38-126 [facility] Comment on above: Performed By: #### T CANDE, CMP, LIPA, JANINE #### [facility] [address] [place] [address] Sunshine Breanna ALT [Catalytic activity/Vol] 12 U/L Normal 9-52 [facility] Comment on above: Performed By: #### T CANDE, CMP, LIPA, JANINE #### [facility] [address] [place] [address] Sunshine Breanna Anion gap [Moles/Vol] 14.9 mmol/L Normal [facility] Comment on above: Performed By: #### T CANDE, CMP, LIPA, JANINE #### [facility] [address] [place] [address] Sunshine Breanna AST [Catalytic activity/Vol] 9 U/L Critically low 14-36 [facility] Comment on above: Performed By: #### T CANDE, CMP, LIPA, JANINE #### [facility] [address] [place] [address] Sunshine Breanna Bilirubin [Mass/Vol] 0.2 mg/dL Normal 0.2-1.3 [facility] Comment on above: Performed By: #### T CANDE, CMP, LIPA, JANINE #### [facility] [address] [place], [place] [address] Sunshine Breanna Calcium [Mass/Vol] 8.9 mg/dL Normal 8.4-10.[address] [facility] Comment on above: Performed By: #### T CANDE, CMP, LIPA, JANINE #### [facility] [address] [address] Sunshine Breanna Chloride [Moles/Vol] 108 mmol/L Critically high 98-107 [facility] Comment on above: Performed By: #### T CANDE, CMP, LIPA, JANINE #### [facility] [address] [address] Sunshine Breanna CO2 [Moles/Vol] 23.8 mmol/L Normal 22.0-30.0 [facility] Comment on above: Performed By: #### T CANDE, CMP, LIPA, JANINE #### [facility] [address] [place] [address] Sunshine Breanna Creatinine [Mass/Vol] 0.81 mg/dL Normal 0.52-1.04 [facility] Comment on above: Performed By: #### T CANDE, CMP, LIPA, JANINE #### [facility] [address] [place] [address] Sunshine Breanna EGFR-AF HONDURAN >60 Normal >=60 [facility] Comment on above: Performed By: #### T CANDE, CMP, LIPA, JANINE #### [facility] [address] [place] [address] Sunshine Breanna EGFR-NON AF HONDURAN >60 Normal >=60 [facility] Comment on above: Performed By: #### T CANDE, CMP, LIPA, JANINE #### [facility] [address] [place] [address] Sunshine Breanna Globulin (S) [Mass/Vol] 4.4 g/dL Normal [facility] Comment on above: Performed By: #### T CANDE, CMP, LIPA, JANINE #### [facility] [address] [place] [address] Sunshine Breanna Glucose [Mass/Vol] 92 mg/dL Normal 74-[address] [facility] Comment on above: Performed By: #### T CANDE, CMP, LIPA, JANINE #### [facility] [address] [place] [address] Sunshine Breanna Potassium [Moles/Vol] 3.7 mmol/L Normal 3.4-5.0 [facility] Comment on above: Performed By: #### T CANDE, CMP, LIPA, JANINE #### [facility] [address] [place] [address] Sunshine Breanna Protein [Mass/Vol] 7.9 g/dL Normal 6.1-8.[address] [facility] Comment on above: Performed By: #### T CANDE, CMP, LIPA, JANINE #### [facility] [address] [place] [address] Sunshine Breanna Sodium [Moles/Vol] 143 mmol/L Normal 137-[address] [facility] Comment on above: Performed By: #### T CANDE, CMP, LIPA, JANINE #### [facility] [address] [place] [address] Sunshine Breanna Urea nitrogen [Mass/Vol] 14.0 mg/dL Normal 7.0-17.0 [facility] Comment on above: Performed By: #### T CANDE, CMP, LIPA, JANINE #### [facility] [address] [place] [address] Sunshine Breanna Urea nitrogen/Creatinine [Mass ratio] 17.3 mg/mg Normal [facility] Comment on above: Performed By: #### T CANDE, CMP, LIPA, JANINE #### [facility] [address] [place] [address] Sunshine Breanna PREG QUANT HCGon 06-02-2020 HCG QUANT 14 mIU/mL Normal [facility] Comment on above: Performed By: #### C VDAGS, CVDTBH #### [facility] [address] [place] [address] Sunshine Breanna HCG RANGE SEE BELOW Normal [facility] Comment on above: Result Comment: 5-50 0-1 WEEK 40-300 1-2 WEEKS 100-1,000 2-3 WEEKS 500-6,000 3-4 WEEKS 5,000-200,000 1-2 MONTHS 10,000-100,000 2-3 MONTHS 3,000-50,000 2ND TRIMESTER 1,000-50,000 3RD TRIMESTER Performed By: #### C VDAGS, CVDTB #### [facility] [address] [place] [address] Sunshine Breanna PREG QUANT HCGon 05-20-2020 HCG QUANT 13 mIU/mL Normal [facility] Comment on above: Performed By: #### C BC #### [facility] [address] [place] [address] Sunshine Breanna HCG RANGE SEE BELOW Normal [facility] Comment on above: Result Comment: 5-50 0-1 WEEK 40-300 1-2 WEEKS 100-1,000 2-3 WEEKS 500-6,000 3-4 WEEKS 5,000-200,000 1-2 MONTHS 10,000-100,000 2-3 MONTHS 3,000-50,000 2ND TRIMESTER 1,000-50,000 3RD TRIMESTER Performed By: #### C BC #### [facility] [address] [place] [address] Sunshine Breanna PREG QUANT HCGon 05-06-2020 HCG QUANT 20 mIU/mL Normal [facility] Comment on above: Performed By: #### P REGQNT #### [facility] [address] [place] [address] Sunshine Breanna HCG RANGE SEE BELOW Normal [facility] Comment on above: Result Comment: 5-50 0-1 WEEK 40-300 1-2 WEEKS 100-1,000 2-3 WEEKS 500-6,000 3-4 WEEKS 5,000-200,000 1-2 MONTHS 10,000-100,000 2-3 MONTHS 3,000-50,000 2ND TRIMESTER 1,000-50,000 3RD TRIMESTER Performed By: #### P REGQNT #### [facility] [address] [place], [place] [id number] Sunshine Breanna PREG QUANT HCGon 04-29-2020 HCG QUANT 21 mIU/mL Normal [facility] Comment on above: Performed By: #### P REGQNT #### [facility] [address] [place], [place] [id number] Sunshine Breanna HCG RANGE SEE BELOW Normal [facility] Comment on above: Result Comment: 5-50 0-1 WEEK 40-300 1-2 WEEKS 100-1,000 2-3 WEEKS 500-6,000 3-4 WEEKS 5,000-200,000 1-2 MONTHS 10,000-100,000 2-3 MONTHS 3,000-50,000 2ND TRIMESTER 1,000-50,000 3RD TRIMESTER Performed By: #### P REGQNT #### [facility] [address] [place], [place] [id number] Sunshine Carlos ABO AND RH TYPEon 04-22-2020 ABO and Rh group Nom (Bld) ABO Rh Typing O Rh Positive Normal [facility] Comment on above: Performed By: #### C BC #### [facility] [address] [place] [address] Sunshine Carlos PREG QUANT HCGon 04-22-2020 HCG QUANT 37 mIU/mL Normal [facility] Comment on above: Performed By: #### P REGQNT #### [facility] [address] [place] [address] Sunshine Cralos HCG RANGE SEE BELOW Normal [facility] Comment on above: Result Comment: 5-50 0-1 WEEK 40-300 1-2 WEEKS 100-1,000 2-3 WEEKS 500-6,000 3-4 WEEKS 5,000-200,000 1-2 MONTHS 10,000-100,000 2-3 MONTHS 3,000-50,000 2ND TRIMESTER 1,000-50,000 3RD TRIMESTER Performed By: #### P REGQNT #### [facility] [address] [place] [address] Sunshine Carlos ED Note-Physicianon 10-16-19 20 ED Note-Physician [id number] Normal [facility] Chlam and gonorrhea: Amp, Ur ine -UHEon 01-12-2017 Chlam and gonorrhea: Amp, Urine -UHE Negative Negative THIS TEST WAS PERFORMED USING A REAL TIME PCR ASSAY. Normal [facility] Comment on above: Performed By: #### R NABU ####[address] [address] Beta HCG (Qual), Urine - MCH on 01-09-2017 HCG.beta subunit ( test) Ql (U) Positive Abnormal Negative [facility] Comment on above: Performed By: #### H CGUMD, UR1MD ####[address] [address] [address] [place], [place] [address] Beta HCG, quant, S - MCHon 1 Beta HCG, quant, S - MCH 88203.0 mIU/mL Normal [facility] Comment on above: Result Comment: FEMA LE GESTATIONAL AGERESULTS <10 ARE CONSIDERED NEGATIVE4 WEEKS 4700-810038 mIU/mL5 WEEKS 3660-616380 mIU/mL6 WEEKS 46623-231031 mIU/mL7 WEEKS 19149-460998 mIU/mL8 WEEKS 28013-891004 mIU/mL9 WEEKS 02315-672852 mIU/mL10 WEEKS 87110-565727 mIU/mL11 WEEKS 6480-916230 mIU/ml12 WEEKS 6740-323198 mIU/mL13-27 WEEKS 8200-824852 mIU/mL28-40 WEEKS 2320-76401 mIU/mL Performed By: #### C BCMD, PTPTMD, TYSCMD, QHCGMD ####[address] [address] CBC, ELECTRONIC DIFF, PLATEL ET - MCHon 01-09-2017 Absolute Basophil 0.0 K/uL Normal 0.0-0.23 [facility] Comment on above: Performed By: #### C BCMD, PTPTMD, TYSCMD, QHCGMD ####[address] [address] Absolute Grans 5.9 K/uL Normal 1.8-7.7 [facility] Comment on above: Performed By: #### C BCMD, PTPTMD, TYSCMD, QHCGMD ####[address] [address] Basophils/100 WBC Auto (Bld) 0.5 % Normal 0-2 [facility] Comment on above: Performed By: #### C BCMD, PTPTMD, TYSCMD, QHCGMD ####[address] [address] Eosinophils 0.1 10*3/uL Normal 0.0-0.7 [facility] Comment on above: Performed By: #### C BCMD, PTPTMD, TYSCMD, QHCGMD ####[address] [address] Eosinophils/100 leukocytes 1.0 % Normal 0-5.0 [facility] Comment on above: Performed By: #### C BCMD, PTPTMD, TYSCMD, QHCGMD ####[address] [address] Erythrocytes (RBC) 13.8 % Normal 11.5-14.5 [facility] [place] Comment on above: Performed By: #### C BCMD, PTPTMD, TYSCMD, QHCGMD ####[address] [address] Grans Electronic 64.6 % Normal 50-70 [facility] Comment on above: Performed By: #### C BCMD, PTPTMD, TYSCMD, QHCGMD ####[address] [address] Hematocrit (HCT) 34.5 % Low 35.0-45.0 [facility] Comment on above: Performed By: #### C BCMD, PTPTMD, TYSCMD, QHCGMD ####[address] [address] Hemoglobin mass conc (Bld) 31.0 pg Normal 27.0-34.0 [facility] Comment on above: Performed By: #### C BCMD, PTPTMD, TYSCMD, QHCGMD ####[address] [address] Hemoglobin mass conc (Bld) 11.7 g/dL Normal 11.7-15.5 [facility] Comment on above: Performed By: #### C BCMD, PTPTMD, TYSCMD, QHCGMD ####[address] [address] Lymphocytes 2.6 10*3/uL Normal 1.0-4.8 [facility] Comment on above: Performed By: #### C BCMD, PTPTMD, TYSCMD, QHCGMD ####[address] [place], [place] [address] Lymphocytes/100 leukocytes 28.7 % Normal 22.0-44.0 [facility] Comment on above: Performed By: #### C BCMD, PTPTMD, TYSCMD, QHCGMD ####[facility] [place], [place] [address] MCH 3.78 M/uL Low 3.8-5.1 [facility] Comment on above: Performed By: #### C BCMD, PTPTMD, TYSCMD, QHCGMD ####[place] [address] [place], [place] [address] MCH 9.1 K/uL Normal 4.5-11.0 [facility] Comment on above: Performed By: #### C BCMD, PTPTMD, TYSCMD, QHCGMD ####[address] [place], [place] [address] MCV 91.0 fL Normal 81.0-100.0 [facility] Comment on above: Performed By: #### C BCMD, PTPTMD, TYSCMD, QHCGMD ####[address] [place], [place] [address] Monocytes 0.5 10*3/uL Normal 0.0-0.9 [facility] Comment on above: Performed By: #### C BCMD, PTPTMD, TYSCMD, QHCGMD ####[address] [place], [place] [address] Monocytes/100 leukocytes 5.2 % Normal 0-7.0 [facility] Comment on above: Performed By: #### C BCMD, PTPTMD, TYSCMD, QHCGMD ####[address] [place], [place] [address] Platelet mean volume (PMV) 8.3 fL Normal 7.5-11.2 [facility] Comment on above: Performed By: #### C BCMD, PTPTMD, TYSCMD, QHCGMD ####[address] [place], [place] [address] Platelets 281 10*3/uL Normal 150-400 [facility] Comment on above: Performed By: #### C BCMD, PTPTMD, TYSCMD, QHCGMD ####[facility] [place], [place] [address] ED PROVIDERon 01-09-2017 [facility] CAC NOT[facility] Normal [facility] NOTES Normal [facility] OSUHIMCACCODINGOPEDon 2016 [facility] CAC Coding OP/ED Report Normal [facility] OSUHIMCACENCSUMon 01-09-2017 [facility] HIM CAC Encounter Summary Report Normal [facility] [place] [facility] [place] aPTT 33 s Normal 24.6-35.9 [facility] Comment on above: Performed By: #### C BCMD, PTPTMD, TYSCMD, QHCGMD ####[facility] [place] [address] INR Coag RelTime (Bld) 1.1 {INR} Normal 0.87-1.15 [facility] Comment on above: Performed By: #### C BCMD, PTPTMD, TYSCMD, QHCGMD ####[address] [place] [address] MCH 13.3 sec Normal 11.5-14.3 [facility] Comment on above: Performed By: #### C BCMD, PTPTMD, TYSCMD, QHCGMD ####[place] [address] [place] [address] TYPE [place] SCREEN [place] [facility] [place] [facility] ABO/RH(D) - MCH: O POSITIVE ANTIBODY SCREEN - MCH: Negative Normal [facility] Comment on above: Performed By: #### C BCMD, PTPTMD, TYSCMD, QHCGMD ####[place] [address] [place] [address] [facility] COMMENT URINE None Normal [facility] Comment on above: Performed By: #### H CGUMD, UR1MD ####[facility] [place] [address] Squamous Epithelial 2+ /HPF Normal [facility] Comment on above: Performed By: #### H CGUMD, UR1MD ####[facility] [place] [address] Urine, bacteria in sediment Absent Normal Absent [facility] Comment on above: Performed By: #### H CGUMD, UR1MD ####[address] [place] [place] [address] Urine, erythrocytes in sediment by area 0-2 Normal 0-2 [facility] Comment on above: Performed By: #### H CGUMD, UR1MD ####[address] [place] [place] [address] Urine, leukocytes in sedmiment 0-5 Normal 0-5 [facility] Comment on above: Performed By: #### H CGUMD, UR1MD ####[address] [place], [place] [address] Bilirubin Urine Negative Normal Negative [facility] Comment on above: Performed By: #### H CGUMD, UR1MD ####[address] [place], [place] [address] Blood Urine Moderate Abnormal Negative [facility] Comment on above: Performed By: #### H CGUMD, UR1MD ####[address] [address] [place], [place] [address] Nitrites Urine Negative Normal Negative [facility] Comment on above: Performed By: #### H CGUMD, UR1MD ####[address] [place], [place] [address] Protein Urine Negative Normal Negative [facility] Comment on above: Performed By: #### H CGUMD, UR1MD ####[address] [place], [place] [address] Specific [place] urine 1.020 Normal 1.001-1.035 [facility] Comment on above: Performed By: #### H CGUMD, UR1MD ####[address] [place], [place] [address] Urine, appearance Clear Normal Clear [facility] Comment on above: Performed By: #### H CGUMD, UR1MD ####[place] [address] [facility] [place] [address] Urine, color Yellow Normal YEL,DKYEL [facility] Comment on above: Performed By: #### H CGUMD, UR1MD ####[place] [address] [place] [address] Urine, glucose presence Negative Normal Negative [facility] Comment on above: Performed By: #### H CGUMD, UR1MD ####[address] [place], [place] [address] Urine, ketones presence Negative Normal Negative [facility] Comment on above: Performed By: #### H CGUMD, UR1MD ####[address] [place], [place] [address] Urine, leukocyte esterase presence Negative Normal Negative [facility] Comment on above: Performed By: #### H CGUMD, UR1MD ####[address] [place], [place] [address] Urine, pH 6.0 [pH] Normal 5.0-7.0 [facility] Comment on above: Performed By: #### H CGUMD, UR1MD ####[address] [place], [place] [address] Urobilinogen urine 0.2 EU/dL Normal <2.0 [facility] Comment on above: Performed By: #### H CGUMD, UR1MD ####[address] [place], [place] [address] Vital Signs Date Time Vital Sign Value Performing Clinician Facility 01-15-2024 14:52-0400 Body mass index (BMI) [Ratio] 36.64 kg/m2 Janine SEVILLA Work Phone: [facility] 01-15-2024 14:52-0400 Body weight 109.32 kg Janine SEVILLA Work Phone: [facility] 01-15-2024 14:52-0400 Diastolic blood pressure 74 mm[Hg] Janine Guzman PA Work Phone: [facility] 01-15-2024 14:52-0400 Systolic blood pressure 118 mm[Hg] Janine Guzman PA Work Phone: [facility] 01-01-2024 13:26-0400 Body mass index (BMI) [Ratio] 35.88 kg/m2 Janine Guzman PA Work Phone: [facility] 01-01-2024 13:260400 Body weight 107.05 kg Janine SEVILLA Work Phone: [facility] 01-01-2024 13:26-0400 Diastolic blood pressure 76 mm[Hg] Janine SEVILLA Work Phone: [facility] 01-01-2024 13:26-0400 Systolic blood pressure 118 mm[Hg] Janine SEVILLA Work Phone: [facility] 12-18-2023 15:06-0400 Body mass index (BMI) [Ratio] 35.54 kg/m2 Dmitriy Rodo DO Work Phone: [facility] 12-18-2023 15:06-0400 Body weight 106.03 kg Dmitriy Rodo DO Work Phone: [facility] 12-18-2023 15:06-0400 Diastolic blood pressure 68 mm[Hg] Dmitriy Rodo DO Work Phone: [facility] 12-18-2023 15:06-0400 Systolic blood pressure 108 mm[Hg] Dmitriy Rodo DO Work Phone: [facility] 03-29-2021 11:15-0500 Body height 172.72 cm Arminda Holt Other [employer] Other 03-29-2021 11:15-0500 Body mass index (BMI) [Ratio] 36.49 kg/m2 Arminda Holt Other [employer] Other 03-29-2021 11:15-0500 Body temperature 97 [degF] Arminda Holt Other [employer] Other 03-29-2021 11:15-0500 Body weight 108.86 kg Arminda Holt Other [employer] Other 03-29-2021 11:15-0500 SaO2% (BldA) [Mass fraction] 99 % Arminda Holt Other [employer] Other Encounters Encounter Date Encounter Type Care Provider Facility Start: 01-15-2024 End: 01-15-2024 ambulatory JANINE GUZMAN Not Available Start: 01-15-2024 End: 01-15-2024 flow sheet Janine SEVILLA Work Phone: [facility] Comment on above: Third trimester preg kianna; 34 weeks gestation of ; H/O: iron deficiency anemia Start: 01-15-2024 End: 01-15-2024 Bamboo flowsheet Janine SEVILLA Work Phone: [facility] Start: 01-15-2024 End: 01-15-2024 Bamboo flowsheet Janine SEVILLA Work Phone: [facility] Start: 01-15-2024 End: 01-15-2024 Clinisync Result Encounter Janine SEVILLA Work Phone: [facility] External Department Unsolicited Start: 01-01-2024 End: 01-01-2024 Bamboo flowsheet Janine SEVILLA Work Phone: [facility] Start: 01-01-2024 End: 01-01-2024 Bamboo flowsheet Janine SEVILLA Work Phone: [facility] Start: 01-01-2024 End: 01-01-2024 ambulatory JANINE GUZMAN Not Available Start: 01-01-2024 End: 01-01-2024 flow sheet Janine SEVILLA Work Phone: [facility] Comment on above: Third trimester preg kianna; 32 weeks gestation of Start: 12-19-2023 End: 12-19-2023 ambulatory [facility] Start: 12-18-2023 End: 12-18-2023 ambulatory [...] OB Start: 12-04-2023 End: 12-04-2023 ambulatory JANINE ARORAEY Not Available Start: 11-22-2023 End: 11-22-2023 ambulatory DMITRIY R RODO [facility] Start: 11-20-2023 End: 11-20-2023 ambulatory DMITRIY RODO Not Available Start: 10-25-2023 End: 10-25-2023 ambulatory DMITRIY R RODO [facility] Start: 10-24-2023 End: 10-24-2023 ambulatory JANINE THOMAS Not Available Start: 09-24-2023 End: 09-24-2023 ambulatory DMITRIY RODO Not Available Start: 08-22-2023 End: 08-22-2023 ambulatory DMITRIY RODO Not Available Start: 07-26-2023 End: 07-26-2023 ambulatory DMITRIY RODO Not Available Start: 03-29-2021 End: 03-29-2021 ambulatory Arminda Holt Other [place] [employer] Other Start: 03-29-2021 Office outpatient ne w [...] Emergency department patient visit SELF SELF [facility] Procedures Date Procedure Procedure Detail Performing Clinician Start: 01-15-2024 ALL CBC WITH AUTO DIFF Janine SEVILLA Work Phone: Start: 01-15-2024 Urnls dip stick/tabl et rgnt non-auto w/o micrscp Janine SEVILLA Work Phone: Start: 01-01-2024 Urnls dip stick/tabl et rgnt non-auto w/o micrscp Janine SEVILLA Work Phone: Start: 12-18-2023 Urnls dip stick/tabl et rgnt non-auto w/o micrscp Dmitriy Koehler Work Phone: Plan of Treatment Date Care Activity Detail Author Start: 01-22-2024 End: 01-22-2024 Patient encounter procedure 01/22/2024 1:00 PM EST Routine [facility] [address] [place] [id number] Janine Guzman, PA [address] [place] [address] [facility] Start: 01-15-2024 End: 01-15-2024 Patient encounter procedure 01/15/2024 2:50 PM EDT Routine [facility] [address] [place] [phone] Janine Guzman PA [address] [place] [address] [facility] Start: 01-01-2024 End: 01-01-2024 Patient encounter procedure 01/01/2024 1:00 PM EDT Routine [facility] [address] [place] [id number] Janine Guzman, PA [address] [place], [place] [id number] [facility] Start: 12-18-2023 End: 12-17-2024 US biophysical profile w non stress test US biophysical profile w non stress test Imaging Routine H/O placenta previa Expected: 12/18/2023 (Approximate), Expires: 12/17/2024 [facility] Work Phone: Comment on above: Expected: 12/18/2023 (Approximate), Expires: 12/17/2024 CBC W Auto Different ial panel - Blood CBC and differential Lab Routine H/O: iron deficiency anemia Ordered: 01/15/2024 [facility] Work Phone: Comment on above: Ordered: 01/15/2024 Payers Date Payer Category Payer Blue Cross Blue Shield BCBS Memb er Subscriber Plan / Payer (Effective 2022-Present) Name: Kristin Grigsby Relation to Subscriber: Self Name: Kristin Grigsby Payer ID: Not on file Type: Not on file Address: [address] [place] [phone] 2022 Unknown BCBS BCBS xxxxxx [id number] 2022-Present [phone] [address] [place] [phone] [id number] 2022 Unknown [id number] 2017 Unknown [id number] 1989 Unknown [id number] 2.16.840.1.182509.3.579. 2.593 1989 Unknown [id number] 2.16.840.1.841245.3.579. 2.593 1989 Unknown [id number] 2.16.840.1.156337.3.579. 2.593 1989 Unknown [id number] 2.16.840.1.703896.3.579. 2.593 1989 Unknown [id number] 2.16.840.1.312801.3.579. 2.593 1989 Unknown [id number] 2.16.840.1.228752.3.579. 2.593 1989 Unknown [id number] 2.16.840.1.879350.3.579. 2.593 1989 Unknown [id number] 2.16.840.1.510539.3.579. 2.593 1989 Unknown [id number] 2.16.840.1.914234.3.579. 2.1286 1989 Unknown [id number] 2.16.840.1.786582.3.579. 2.1286 1989 Unknown [id number] 2.16.840.1.013972.3.579. 2.1286 1989 Unknown [id number] 2.16.840.1.444804.3.579. 2.1286 1989 Unknown [id number] 2.16.840.1.494598.3.579. 2.1259 1989 Unknown [id number] 2.16.840.1.625090.3.579. 2.1259 1989 Unknown [id number] 2.16.840.1.002249.3.579. 2.1259 1989 Unknown [id number] 2.16.840.1.361363.3.579. 2.1259 1989 Unknown [id number] 2.16.840.1.738662.3.579. 2.1259 1989 Unknown [id number] 2.16.840.1.365859.3.579. 2.9 1989 Unknown [id number] 2.16.840.1.719085.3.579. 2.1259 1989 Unknown [id number] 2.16.840.1.164635.3.579. 2.9 1989 Unknown [id number] 2.16.840.1.117068.3.579. 2.1259 1959 Private Health Insurance [id number] Self-pay [id number] Unknown [id number] 2.16.840.1.841860.19 Social History Date Type Detail Facility Start: 08-22-2023 Sex Assigned At [employer] Other Start: 08-22-2023 End: 01-01-2024 Tobacco smoking status [facility] Ex-smoker [facility] Start: 08-18-2015 End: 09-19-2014 History of tobacco use Current smoker [facility] Start: 08-18-2015 End: 09-19-2014 History of tobacco use Cigarette Smoker [facility] Start: 08-22-2023 End: 01-01-2024 Cigarettes smoked current (pack per day) - Reported 0.5 [facility] Start: 08-22-2023 End: 01-01-2024 Tobacco use and exposure Smokeless tobacco non-user [facility] Start: 12-04-2023 End: 01-01-2024 Alcoholic beverage intake Ex-drinker (finding) [facility] Start: 05-30-2023 [facility] Start: 1990 Sex assigned at Not on file [facility] Start: 07-26-2023 Gender identity Identifies as female gender (finding) [facility] Start: 07-26-2023 Sexual orientation Heterosexual (finding) [facility] History of Present illness Narrative 01-15-2024 DI Serna - 01/15/2024 2:50 PM EDT Note Date & Type Note Facility 01-15-2024 History of Presen t illness Narrative Reason [...] 02/16/21: 5' 8 . Weight as of 01/01/24: 236 lb. BP: Patient's last menstrual period was 05/22/2023. ASSESSMENT & PLAN ICD-10-CM 1. Third trimester Z34.93 POCT urinalysis dipstick manually resulted 2. 34 weeks gestation of Z3A.34 Return OB: Patient presents today for a routine obstetrics appointment. Patient is currently 34w6d . Patient states she is doing well but has complaints of being tired due to current . Patient has verbalizes frequent movement. labor precautions was discussed/given and patient was instructed to perform kick counts three times a day. As previously documented patient desires sterilization during the time of her repeat section. I have discussed with the patient in detail that a salpingectomy is considered to be permanent and patient verbalized understanding and that she does not desire anymore children. Patient will undergo repeat section and bilateral salpingectomy on 01/28/[address] Koehler. Surgical consents were signed, partners instructions were given, mmc was reviewed, and patient is to proceed to [facility] on her scheduled day. Orders Placed This Encounter Procedures CBC and differential POCT urinalysis dipstick manually resulted Follow Up: Patient is to return in 1 week for routine OB appointment. Documented by DI Serna on behalf of: DI Serna documented in this encounter [facility] History of Present illness Narrative 01-01-2024 DI [...] History of Present illness Narrative 12-18-2023 Breanna CisnerosANITA - 12/18/2023 2:50 PM EDT Note Date [...] nursing note reviewed. Exam conducted with a light bulb replacer present. Vitals: Estimated body mass index is [...] Dmitriy Koehler DO documented in this encounter [facility] Evaluation note 03-29-2021 Note Date [...] Patient care instructions given in writting by [facility] document. [employer] Other Evaluation note Note Date & Type Note Facility Evaluation note Diagnosis Third trimester state, incidental 30 weeks gestation of H/O placenta previa documented in this encounter [facility] Evaluation note Note Date & Type Note Facility Evaluation note Diagnosis Third trimester state, incidental 32 weeks gestation of documented in this encounter [facility] Evaluation note Note Date & Type Note Facility Evaluation note Diagnosis Third trimester state, incidental 34 weeks gestation of H/O: iron deficiency anemia Personal history of diseases of blood and blood-forming organs documented in this encounter [facility] Summary Purpose Family History No Family [...] section and content) DATE CREATED AUTHOR 09/11/2017 [facility] DATE CREATED AUTHOR AUTHOR'S ORGANIZ ATION 10/18/2019 [facility] DATE CREATED AUTHOR AUTHOR'S ORGANIZ ATION 11/24/2020 [facility] DATE CREATED AUTHOR AUTHOR'S ORGANIZ ATION 04/08/2021 [facility] DATE CREATED AUTHOR AUTHOR'S ORGANIZ ATION 04/18/2021 [facility] Special[facility] DATE CREATED AUTHOR AUTHOR'S ORGANIZ ATION 06/24/2021 [facility] DATE CREATED AUTHOR AUTHOR'S ORGANIZ ATION 11/24/2023 [facility] DATE CREATED AUTHOR AUTHOR'S ORGANIZ ATION 12/21/2023 [facility] DATE CREATED AUTHOR AUTHOR'S ORGANIZ ATION 01/17/2024 [facility] Specialists EPIC REASON FOR [...] BE BASED ON THE PRIMARY CLINICAL RECORDS. [employer] [facility]. provides no warranty or guarantee of the accuracy or completeness of information in this document.
--- NOTE | 2024-01-17 12:59 | US_ITS ---
[address] [address] Patient Name: MATTY HOLLEY MRN: [id number] date: 1990 Sex: F Assigned Patient Location: [facility] Current Patient Location: [facility] Accession/Order Number: [id number] Exam Date: 01/17/2024 13:00 Report Date: 01/17/2024 13:51 At the request of: DMITRIY BOWIE Procedure: US OB BPP w non-stress EXAMINATION: US OB BPP w non-stress HISTORY: History of placenta abruption Z87.59 COMPARISON: No relevant comparison available. TECHNIQUE: Ultrasound biophysical profile was performed in the radiology department. non-reactive stress testing was performed by nursing staff in the birthing center. FINDINGS: BREATHING MOVEMENTS: 2 GROSS BODY MOVEMENTS: 2 TONE: 2 QUALITATIVE AMNIOTIC FLUID VOLUME: 2 PRESENTATION: CEPHALIC HEART RATE: 131.71 bpm AMNIOTIC FLUID VOLUME: 17.5 cm GESTATIONAL AGE: 35 weeks 1 day US/US OB BPP w non-stress IMPRESSION: Total biophysical profile score: 8 Electronically authenticated by: MIGUEL BENAVIDES Date: 01/17/2024 13:51
[2024-01-17 13:30] VITALS: BP 124/77; PULSE 93
== END 2024-01-17 13:57 | disposition home or self-care (01) ==
LOC: US 07:06 → FBC 12:57
PROVIDERS: Visit Provider Obstetrics & Gynecology
DX: O26.893 Other specified pregnancy related conditions, third trimester (principal); Z87.59 Personal history of other complications of pregnancy, childbirth and the puerperium; Z3A.35 35 weeks gestation of pregnancy
CPT/HCPCS: 76818

== ENCOUNTER 2024-01-21 08:45 | Outpatient (OUT) | payer BC, SELFPAY ==
--- OUTSIDE RECORDS SUMMARY | 2024-01-20 23:51 | XMS_ITS | CCD ---
Author Organization [facility] CliniSyct Care Team Providers Care Croze Cutter Helper Name Role Phone SELF, SELF Unavailable Unavailable [...] NONE LISTED Primary Care Unavaila LISA Cordoba Admitting Unavailable REQUEST, NONE LISTED Primary Care UnavailLISA Stein Attending Unavailable PACHECO, LISA Consulting Unavailable JUNIOR, HERBERT Consulting Unavailable REQUEST, NONE LISTED Primary Care Unavaila ble JUNIOR, HERBERT Admitting Unavailable HERBERT PACHECO Attending Unavailable Arminda Holt Unavailable Unavailable Primary Care Provider Unavailcristin e DAVID SOUZAERIE Referring Unavailable FLORO, LYNNETTE Primary Care Unavailable DMITRIY KOHELER Attending Unavailable RODO, DMITRIY Attending Unavailable THOMAS, JANINE Attending Unavailable RODO, DMITRIY Attending Unavailable THOMAS, JANINE Attending Unavailable RODO, DMITRIY Attending Unavailable THOMAS, JANINE Attending Unavailable THOMAS, JANINE Attending Unavailable MACY BABCOCK Attending Unavailable FLORO, LYNNETTE Referring Unavailable FLORO, LYNNETTE Primary Care Unavailable RODO, DMITRIY R Referring Unavailable [facility] Unavailable DMITRIY KOEHLER Referring Unavailable [facility] Unavailable DMITRIY KOEHLER Referring Unavailable [facility] Unavailable Medications Current Medications Medication Drug Class(es) Dates Sig (Normalized) Sig (Original) [id number] 200 actuat albuterol 0.09 mg/actuat metered dose [...] Daily 30 capsule 2 01/15/2024 02/14/2024 Active Pre- (1 source) Pre-Marlene Active MV-Min-Fe Fum-FA-DHA ( 1 PO) (10 [...] delivery] Onset: 10-25-2023 Episodic Residual codes; unclassified (2 [...] [34 weeks gestation of ] 01-15-2024 Episodic Residual codes; unclassified (1 source) 23 [...] 03-29-2021 Episodic Other aftercare (1 source) Other senior living (current) drug therapy; Translations: [OTH ALF CURRENT [...] AUTO DIFFon BASOPHILS ABSOLUTE AUTO 0.1 N [facility] Basophils/100 WBC (Bld) 0.7 % 0.2 - 2.0 % [facility] Eosinophils/100 WBC (Bld) 2.8 % 0.9 - 7.0 % [facility] Erythrocyte distribution width (RBC) [Ratio] 12.4 % 11.0 - 15.0 % [facility] Hematocrit (Bld) [Volume fraction] 30.8 % Low 36.0 - 48.0 % [facility] Hemoglobin (Bld) [Mass/Vol] 10.3 g/dL Low 12.0 - 16.0 g/dL [facility] IMMATURE GRANULOCYTES ABS AUTO 0.11 High [facility] Immature granulocytes/100 WBC (Bld) 1.3 % High 0.0 - 0.5 % [facility] Interpretation and review of laboratory results Abnormal [facility] LYMPHOCYTES ABSOLUTE AUTO 2 [facility] Lymphocytes/100 WBC (Bld) 24.4 % 20.5 - 60.0 % [facility] MCH (RBC) [Entitic mass] 31.7 pg 26. 7 - 34.0 pg [facility] MCHC (RBC) [Mass/Vol] 33.4 g/dL 29.9 - 35.2 g/dL [facility] MCV (RBC) [Entitic vol] 94.8 fL 81.0 - 99.0 fL [facility] MONOCYTES ABSOLUTE AUTO 0.6 N [facility] Monocytes/100 WBC (Bld) 6.7 % 1.7 - 12.0 % [facility] NEUTROPHILS ABSOLUTE AUTO 5.3 [facility] Neutrophils/100 WBC (Bld) 64.1 % 43.0 - 75.0 % [facility] Platelet mean volume (Bld) [Entitic vol] 9.7 fL 9.5 - 13.5 fL [facility] TBH EO # 0.2 [facility] PLT 274 [facility] RBC 3.25 [facility] e [facility] WBC 8.2 [facility] Urinalysis macro (dipstick) panel (U)on 01-15-2024 Bilirubin, UA Negative Negative - 4(70) +++ mg/dL [facility] Blood, UA Negative Negative - 50 Wili/mcL [facility] Clarity, UA Clear [facility] Color, UA Yellow [facility] Glucose, UA Negative Negative - 1999(110) ++++ mg/dL [facility] Interpretation and review of laboratory results Normal [facility] Ketones, UA Negative Negative - 160(16) ++++ mg/dL [facility] Leukocytes, UA Negative Negative - 500+++ Yajaira/mcL [facility] Nitrite, UA Negative Negative - Positive [facility] pH, UA 7 5 - 9 [facility] Protein, UA Negative Negative - 1999(20) ++++ mg/dL [facility] Spec Grav, UA 1.02 1 - 1.03 [facility] Urobilinogen, UA 0.2 0.2 - 12 mg/dL [facility] Urinalysis macro (dipstick) panel (U)on 01-01-2024 Bilirubin, UA Negative Negative - 4(70) +++ mg/dL [facility] Blood, UA Negative Negative - 50 Wili/mcL [facility] Clarity, UA Clear [facility] Color, UA Yellow [facility] Glucose, UA Negative Negative - 1999(110) ++++ mg/dL [facility] Interpretation and review of laboratory results Abnormal [facility] Ketones, UA Positive Negative - 160(16) ++++ mg/dL [facility] Comment on above: trace Leukocytes, UA Negative Negative - 500+++ Yajaira/mcL [facility] Nitrite, UA Negative Negative - Positive [facility] pH, UA 7 5 - 9 [facility] Protein, UA Positive Negative - 1999(20) ++++ mg/dL [facility] Comment on above: 30 Spec Grav, UA 1.025 1 - 1.03 [facility] Urobilinogen, UA 0.2 0.2 - 12 mg/dL [facility] Urinalysis macro (dipstick) panel (U)on 12-18-2023 Bilirubin, UA Negative Negative - 4(70) +++ mg/dL [facility] Blood, UA Negative Negative - 50 Wili/mcL [facility] Clarity, UA Clear [facility] Color, UA Yellow [facility] Glucose, UA Negative Negative - 1999(110) ++++ mg/dL [facility] Interpretation and review of laboratory results Abnormal [facility] Ketones, UA Negative Negative - 160(16) ++++ mg/dL [facility] Leukocytes, UA Negative Negative - 500+++ Yajaira/mcL [facility] Nitrite, UA Negative Negative - Positive [facility] pH, UA 6.5 5 - 9 [facility] e Protein, UA Trace Negative - 1999(20) ++++ mg/dL [facility] Spec Grav, UA 1.030 1 - 1.03 [facility] Urobilinogen, UA 0.2 0.2 - 12 mg/dL [facility] Complete Blood Count Auto Di ffon 06-14-2021 Basophils (Bld) [#/Vol] 0.0 10*3/uL Normal 0.0-0.2 [facility] Comment on above: Result Comment: PERF ORMED BY: [place] [address] PATHOLOGIST POCKET MARKER STEPHANIE ROACH M.D. Performed By: #### C BC #### [address] Basophils/100 WBC (Bld) 0.6 % Normal . [facility] Comment on above: Performed By: #### C BC #### [address] Eosinophils (Bld) [#/Vol] 0.1 10*3/uL Normal 0.0-0.45 [facility] Comment on above: Performed By: #### C BC #### [place] [address] [place] Eosinophils/100 WBC (Bld) 1.7 % Normal . [facility] Comment on above: Performed By: #### C BC #### [address] Erythrocyte distribution width (RBC) [Ratio] 13.5 % Normal 11.9-15.3 [facility] Comment on above: Performed By: #### C BC #### [address] Hematocrit (Bld) [Volume fraction] 30.6 % Low 34.0-46.4 [facility] Comment on above: Performed By: #### C BC #### [address] Hemoglobin (Bld) [Mass/Vol] 10.2 g/dL Low 11.8-15.4 [facility] Comment on above: Performed By: #### C BC #### [address] Lymphocytes (Bld) [#/Vol] 2.1 10*3/uL Normal 1.00-4.8 [facility] Comment on above: Performed By: #### C BC #### [address] Lymphocytes/100 WBC (Bld) 24.1 % Normal . [facility] Comment on above: Performed By: #### C BC #### [address] MCH (RBC) [Entitic mass] 31.4 pg Normal 24.7-34.3 [facility] Comment on above: Performed By: #### C BC #### [address] MCV (RBC) [Entitic vol] 94.0 fL Normal 80-100 F [facility] Comment on above: Performed By: #### C BC #### [address] Mean Corpuscular HGB Conc 33.4 g/dL Normal 32.0-35.0 [facility] Comment on above: Performed By: #### C BC #### [facility] [address] [place] [address] [place] Monocytes (Bld) [#/Vol] 0.4 10*3/uL Normal 0.0-0.8 [facility] Comment on above: Performed By: #### C BC #### [facility] [address] [place] [id number] [place] Monocytes/100 WBC (Bld) 4.9 % Normal . [facility] Comment on above: Performed By: #### C BC #### [facility] [address] [place] [address] [place] Neutrophils (Bld) [#/Vol] 5.9 10*3/uL Normal 1.8-7.7 [facility] Comment on above: Performed By: #### C BC #### [facility] [address] [place] [address] [place] Neutrophils/100 WBC (Bld) 68.7 % Normal . [facility] Comment on above: Performed By: #### C BC #### [facility] [address] [place] [address] [place] Nucleated RBC/100 WBC (Bld) [Ratio] 0.1 % Normal 0-0.5 [facility] Comment on above: Performed By: #### C BC #### [facility] [address] [place] [address] [place] Platelet mean volume (Bld) [Entitic vol] 8.0 fL Normal 6.3-10.7 [facility] Comment on above: Performed By: #### C BC #### [facility] [address] [place] [address] [place] Platelets (Bld) [#/Vol] 298 10*3/uL Normal 150-450 [facility] Comment on above: Performed By: #### C BC #### [facility] [address] [place] [address] [place] RBC (Bld) [#/Vol] 3.25 10*6/uL Low 3.60-5.00 [facility] Comment on above: Performed By: #### C BC #### [facility] [address] [place] [address] WBC (Bld) [#/Vol] 8.6 10*3/uL Normal 4.5-11.0 [facility] Comment on above: Performed By: #### C BC #### [facility] [address] [place] [address] [place] Dipstick and Microscopicon 0 06-14-2021 Appearance (U) Clear Normal Clear [facility] Comment on above: Order Comment: Name Collection Type:: Clean-Voided Midstream Performed By: #### A DDONUAPLUS, OBUDS #### [address] Bacteria,Urine None Seen Normal None Seen [facility] Comment on above: Order Comment: Name Collection Type:: Clean-Voided Midstream Performed By: #### A DDONUAPLUS, OBUDS #### [place] [address] [place] Bilirubin,Urine Negative Normal Negative [facility] Comment on above: Order Comment: Name Collection Type:: Clean-Voided Midstream Performed By: #### A DDONUAPLUS, OBUDS #### [address] Color (U) Yellow Normal Yellow [facility] Comment on above: Order Comment: Name Collection Type:: Clean-Voided Midstream Performed By: #### A DDONUAPLUS, OBUDS #### [facility] [address] [place] [address] [place] Glucose Ql (U) Normal Normal Normal [facility] Comment on above: Order Comment: Name Collection Type:: Clean-Voided Midstream Performed By: #### A DDONUAPLUS, OBUDS #### [place] [address] [place] Hyaline Casts,Urine 0-8 Normal 0-8 [facility] Comment on above: Order Comment: Name Collection Type:: Clean-Voided Midstream Result Comment: PERF ORMED BY: [place] [address] PATHOLOGIST POCKET MARKER STEPHANIE ROACH M.D. Performed By: #### A HARJIT OBUDS #### [address] Ketones Ql (U) Negative Normal Negative [facility] Comment on above: Order Comment: Name Collection Type:: Clean-Voided Midstream Performed By: #### A DDSHENA OBUDS #### [address] Leukocyte esterase Test strip Ql (U) Negative Normal Negative [facility] Comment on above: Order Comment: Name Collection Type:: Clean-Voided Midstream Performed By: #### A DDSHENA OBUDS #### [address] Nitrite,Urine Negative Normal Negative [facility] Comment on above: Order Comment: Name Collection Type:: Clean-Voided Midstream Performed By: #### A DDONUAPLUS OBUDS #### [address] Occult Blood,Urine 3+ High Negative [facility] Comment on above: Order Comment: Name Collection Type:: Clean-Voided Midstream Result Comment: PERF ORMED BY: [place] [address] PATHOLOGIST POCKET MARKER STEPHANIE ROACH M.D. Performed By: #### A HARJIT OBUDS #### [address] pH (U) 7.5 [pH] Normal 5.0-9.0 [facility] Comment on above: Order Comment: Name Collection Type:: Clean-Voided Midstream Performed By: #### A DDONUAPLUS OBUDS #### [place] [address] [place] Protein,Urine Negative Normal Negative [facility] Comment on above: Order Comment: Name Collection Type:: Clean-Voided Midstream Performed By: #### A DDONUAPLUS OBUDS #### [facility] [address] [place] [address] RBC,Urine 20-49 High 0-4 [facility] Comment on above: Order Comment: Name Collection Type:: Clean-Voided Midstream Performed By: #### A DDONUAPLUS, OBUDS #### [facility] [address] [place] [address] Specificy Lehr,Urine 1.009 Normal 1.001-1.030 [facility] Comment on above: Order Comment: Name Collection Type:: Clean-Voided Midstream Performed By: #### A DDONUAPLUS, OBUDS #### [address] Squamous Epithelial Cell,Urine 1-2 Normal 0-2 [facility] Comment on above: Order Comment: Name Collection Type:: Clean-Voided Midstream Performed By: #### A DDONUAPLUS, OBUDS #### [address] Urobilinogen,Urine Normal Normal Normal [facility] Comment on above: Order Comment: Name Collection Type:: Clean-Voided Midstream Performed By: #### A DDONUAPLUS, OBUDS #### [address] WBC,Urine None Seen Normal 0-4 [facility] Comment on above: Order Comment: Name Collection Type:: Clean-Voided Midstream Performed By: #### A DDONUAPLUS, OBUDS #### [address] OB Urine Drug Screen (NO THC )on 06-14-2021 Amphetamine Screen,Urine Negative Normal Negative [facility] Comment on above: Performed By: #### A DDONUAPLUS, OBUDS #### [address] Barbiturate Screen,Urine Negative Normal Negative [facility] Comment on above: Performed By: #### A DDONUAPLUS, OBUDS #### [address] Benzodiazepines Screen,Urine Negative Normal Negative [facility] Comment on above: Performed By: #### A DDONUAPLUS, OBUDS #### [facility] [address] Cocaine Screen,Urine Negative Normal Negative [facility] Comment on above: Performed By: #### A DDONUAPLUS, OBUDS #### [facility] [address] Opiate Screen,Urine Negative Normal Negative [facility] Comment on above: Performed By: #### A DDONUAPLUS, OBUDS #### [facility] [address] Phencyclidine Screen, Urine Negative Normal Negative [facility] Comment on above: Result Comment: Thes e are unconfirmed results and should not be used for legal purposes. Drug Cut-Off Concentration: AMPH 1000 ng/mL NOLBERTO 200 ng/mL BIANCA 200 ng/mL COCM 300 ng/mL OP 300 ng/mL PCP 25 ng/mL PERFORMED BY: [place] [address] PATHOLOGIST POCKET MARKER STEPHANIE ROACH M.D. Performed By: #### A DDONUAPLUS, OBUDS #### [address] OB 2nd/3rd Trimesteron OB 2nd/3rd Trimester FINDINGS: [...] 4.6 cm (19 weeks, 6 days) Head Pyfqpheulwiig07.3 cm (19 weeks, 0 days) Abdominal Mqwovuwswhhjf87.6 cm (19 weeks, 0 days) Femur Length 3.1 cm (19 weeks, 3 days) PresentationBreech Weight (g) by Pabboitesf56.4%* These measurements result in an estimated date [...] by Ayo Jiménez on 04/18/2021 0921 Normal [facility] Buyer Assistant Coding Summaryon 04-07-2021 Coding Summary HTMLBase 64 JfcxtzafAMc2fRd+PG hlYWQ+WP4LXJDkJ88i sHFzlN0VY0sIIH6NPR SDRNNADL3FHQ3kyPL6 AQogA2FxxhJz JhjkbYVzTQ80WAh4EZ A6kPesOXczuS3qaGJb L8a0WjAwKF33sK29GA vcMQHfYrL5EtFrovjb bWFy Q3grAlOnmVQwCsi+PH RhYmxlIHdpZHRoPScx JCRiAoBjySxyIG2uFi 9yZGVyLWNvbGxhcHNl OiBj g0swKRRiCDitVJ8bhH fmF0UstWJ9RKNst4v0 Ob96qPD+DGZwOSU6fF ovYXcqd454LyMwh3lv IDM3 oRKvAEhoBWA7F68bo5 C7WBNpNPNgMIQ6yBZ6 kF0jtBanvrwtV9RvuA ZpGaP0DXZ0uMFarL9h bGln ktzgiV1nQok+Q09ESU 2UREAMSI4AQld1O1Ju PjwvdHI+WA90LRTqCF 44mWEihJGbg9iopYa5 JzEw WQEnNXS6pKlfCDpum1 AyIAQrV87xqMDcv6C8 IGNvbGxhcHNlOyBlbX T1bV3cBAhcudsjy1wl dzsn Xrtrk2aeoz62dQ11V0 4oZByjANWzMLZ0FNOv HIGdcKkxok5ucV3aXa 8+TYxjh6pwv0roqNc7 IjIw NJVxmvHhwCmdGSW4l4 GjYq92M5CcwKgni1Po Ecz1eo34iDKqp7B7nS K5OYexMOPaiM1wXQgb ZnQ6 HBXjMmGokW01wQIzGW tyYy5rnHtkcEwlIU9e NXNkvtobUYJlcS6zGW EmaFQmyEoePE1cRHOj bjtm o402BjZmQMJ5JWYcwT QcC0IccV3hXwGfWYRn VYWgQ0TnrZTbDIwiO8 73ITtiPwG3BBOcliUk Y2Fs WYGgtGnrYxU5y7G5Wp 8Ny1MlmeehNWG8IJxu BWXjBxCkLaAqTiL8H1 JwDks3LMVviFqhHZ9q J3Bh MEOowavccvaiiCO3ND RhPEPzpR01kYXlNImk Za0rg6R3r333VWPxLQ ZztT26Sy6niRikECQk dCBU mQ2eqhfth0ihkpczQv WvWBBjQQp1SSu7MVEx jZboZfWyKQC3PtC7UT T6dQIxsW1crJyroeyn dG9w Oyc+M18fwZ0aCSB5SZ A6vdnhXWXgepAvCT48 SG45V7ZrYzjpdRSjqA U+CTGodzJrfOruRS5q YmFj h5awy6LwIRehZ8XgJA JyFUtqLvr7IGRrPEG7 qPR5mW7rXPLsMTjrs1 Z8rGP9V9FuosUpvt8u b2xs YSOqPJtyA61zcEXqr4 G2HZNtgGH3YQIzgKms CkYzzU24Eph+PGNvbG fga6OhVuytj7yzw8za dGg9 IjMwJSIgdmFsaWduPS G1j3NySi33W22aVIew ZHRoPSIxNSUiIHZhbG pvmy2zoL6oMb6+PGNv bCB3 vCS1tU9wCODxCoF2QM mmP606YkQbnGWiYxvd k6cin0evmYn8QbNqRO GnrnYiyQtgHAR8w7Ta Lz48 W92jYZrgLGVmKFAlSD VmARGowXhesh4mqY2k Ii8+UO5st4aveb56xL 48dHI+SHPtRSU0qUkc PSdw NWQnyK0rZKvrSsU4OD NxWbYzsP78eRLgCJvn Fm6thRxwtAvgBK2mZR Ztcedfg659JeApc1tg IDEw xPPdIZfbVCM4D33af0 D4RUWeVGKpNEE9pMD4 qP1xaRcsdjvepREryM sgdmVydGljYWwtYWxp Z246 IHRvcDsnPlBhdGllbn SnJjIbIWm3Y1UwDcw3 CRUraTunMV6emEXiQJ rrIa3exZaaxFkgUM2y NTBp hoqyn096NuCfx8wmJH WvlZCgUMegVTX1D78k r7E8PQXmOZVtDBP8mG P0aB1dsMsexxrxrWNv dDsg dmVydGljYWwtYWxpZ2 46IHRvcDsnPkJpcnRo NRTygIX3GX05TE04zM Scx1O8dIW4X1ZgFAWy bmct xdcvdTR7WVVcLPSksF 67Vl0vxMvpTw4vUCYx YLE2SFHsmGLtS4XqbF 7rOiWsIPQlPNIeH6Bn eHQt KVssP191FUtnIfH6ZC NgpoCnE5WxJQGapCng BuL9r5Y1Pr9JH6O4LR 97PW53mFSxu5D0uPS0 J3Bh BJRwajidhcqeeGD4JX IySHTegV15Mk7dlUef Pr9hLOIzEZI2WEKnlR GbN3JbqJ4xXdEwVTQz MDAw F0SxeUOsAWawJ075OE dfJxN9GCKljiAvV4Pw DLPyiKoiBoD2z4N8Pv 5ITTo5RI95WA45nXTb c3R5 mBW4A7SeCEMfkublmi omjCJ3CTPgHKIveA59 Hs6meZdtMb8fTCWoKA A7JDCfuLSmR0YtiP3g OiAj WTAxKRKcK6XwrHTkBY hkG520SKtmJoU4ATPh kwWeU9QyNOBqdVoxKa I4y6O9Nr7MJIEhTY40 IFR5 gNZ7WQ79RN24V9LwDs wvdGFibGU+PHRhYmxl IHdpZHRoPScxMDAlJy KdjIyuIM8wKm3uEKDu LWNv aIrcfUAnKjJxu3rzGQ BcVKteAR8srYyoH1Jb gET4FTAvg7j2Vl25T1 1aA6LvpGV+PGNvbCB3 aWR0 gT8lTxZwUdG9DGeuC3 38AfDqkEVgLvrhv3lp z5xukBm0OeD9YJDzhh LhiGmxNGG7t2HqTc49 Y29s IHdpZHRoPSIxNSUiIH NeiYfbuc7seL6qPr1+ WSDejJE2mHZ4cN3mYu XgMuK7IIglE186BpJv cCIv Lzxzt0elz6qvhDx4Tc IwJSIgdmFsaWduPSJ0 a6RnMa89G4OvzFtiu0 ZoTik4zs21jRFhu6Q1 bGU9 N4ZxOKMyjapfnHCzmJ xoJW6uFGVhrsssZABo xN2hXZHaP7j3NpEmCw K8APmfE5SgmbG2JSSv cHQg CLugENI7B90he8D0HC KaYNOwHMR9cST2uG4x bGlnbjogbGVmdDsgdm CpeEmlIGrnDNndB453 IHRv oStbNOSsuU4tKMEmfX YiwZqrRJ5eAQBkqdty UzRUAfUHTctxCE3KGF RZGTB6S0CtFqj1CHYd dHls UU1wzWOmAOkoTw0ysK zwxBkeDJ5qPZGpmmmj JQMshQ2rCVDoxSBckA ymTG1jNOUdklmys940 OiAx KMV7HBMevCLmN3NjuT 2hGeGzTBGvJCBoE3Mb nBYgPOvnG005YJooDc A9LIKlkuStV4UsHWWz aWdu BpU3i1G9Ia4lBn8yNd 1eGYaxHN32LW47cKXu o7O0dFH9H4RpZICejp uyludtxPT0BGCqACHc aW47 gGKqCWdyLl9kj0E2x3 82SIYaEEGmxA53Ix2x rUlxUNTdjLBTvM8kko gac4wydkwdYiToXXTa MDt0 LVm0GYEpkJzhLzBcGC J3TvE9IXP0qDLtcV9y pXfoqkxdnZ8vVhq+Mz PiRZWmxaR1D6BoRfo6 ZCBz gNnnLS6wfBVfJDrlXu 8ogKnxpBupRA7gOQLz zuzgMFJxqM3wAPJlsD ZqlRsbIE3nWCHovfhy b250 BpUfSGK3MLUuyHHfB7 OnaZ6rAuHuZVRhHCPd I3TkgPAuIZehA156UC ohSgP8PTGvvfCzK1Eo LWFs rOtdFhU2q4H3Dp9HUX 6WJTX8A3FdKhf3LXEm lSdyXJ1neSRvAOgzMl 8rgLafaLecES4dYYFl bjtw DRMboP7oBSDzfOJkjV ccBO7aCXFzgcwrm862 XnUwPPQ4YPPesGBfB3 HyqQ4mAlBpDDJuZVEj O3Rl rRCmEQnyS736IBoiRu Q2IGLilnJqU6SqBNYr xOfuPkH8v6U6Ca2BHR wvdGQ+QR13xw30G5Pi Ymxl Nsh3OURgBNH7xYY9vP 3pRILaULyaw4C5kMS0 A4LpelIqqv5so8ozWZ PgMJahU59fwJRqf3H8 IGVt yTD9OKSzkIszAyGdmT 93Oyc+OCIheUjez4Ii Nvjpj0trt3mkmPg0Pi MwJSIgdmFsaWduPSJ0 b3Ai Hm20T28pTFgfIMLeYK KkXBGdWQBjxTaasx9p aC8uYc7+PVWoaDZ4pA D9eM2hPmOfOiZ4ZMmi Z249 OzRtgBTdLobmx2irp7 hdpRs1GpIlEJOztmWh cWxpAPZ3r8ZxPv30D4 GihRyww6LiGdo5tw09 dGQg q6H4rKF7I4ZzTIDahl psyPKzxJobPZ3aDDUe fwoyILNokU6nZDVhF5 v7RaQqUhP7DFpnK9Bd bnQ6 IGJvbGQgMTBwdCBUaW 6errlxh9tayespCdTp WWGoFKt4WDo8CXDghO wgHnGfZAI4LsA2DWC5 aWNh oX6oyXgyrbfgjG3eJy c+JHu1a1bhyUEaCS8l qDW9RD82SS80aLVva0 F1tEL5O7CjNFTsujpx cmln pQO9AOLxNXBbtJ85Yh 2dwEywVm9gZDBbGRZ7 TZVniCPyZ2FgwW0dVp DvIAOhJNMjI0YafZKt YWxp E652NGgbKdW0EGGuhl LbX3MdNTYscKnsVbA0 j5Z6Wm7QGW45RW60BM 26zENte9T5tRM9W5Ss ZGRp sylbwgmfrLU8YMOpVV PjsT97Jj7naHuhRu5m RKTaVCM8BLSopFFsH1 KocJ9nMaDoBPFvXXCo O3Rl bACbKUvrQ115NYkyPj K5YXCfwhLsP5NfIZCt qDkdWoG4y0D5Aa0RYs 33ZP16FO11kZAko0D7 bGU9 Z3NfAGAxzjqzadrfwT Z4TRIoUHUwcQ32An6x dKdcYt0zOTEuWLZ6PW LxiLBqF3UyuE6bWuIq MDAw JDJmU2UkzSQbWKueR3 97YNsfXjF6OVNejrBh X6GiQWZzgTntDgE6l9 W2Bn1XKZmpzcd8K9Fg Pjwv dHI+VA47ENKiSO12zY HdjUTmz7abuHy4ScWl UHBoQIV8iVyfDFzfe5 KhXEWsO55bnTXfu3I5 IGNv bGx (more content not included)... 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 It has not been cleared or approved by the [place] Food and Drug Administration. The FDA has determined that such clearance or approval is not necessary. This test is used for clinical purposes. It should not be regarded as investigational or research. Performed By: #### C BC #### [facility] [address] [place], [place] [id number] Sunshine Carlos CULTURE URINEon 11-10-2020 CULTURE URINE [...] F Tetracycline <=0.25 S F Normal [facility] Comment on above: Performed By: #### C BC #### [facility] [address] [place] [address] Sunshine Carlos CHLAMYDIA/GONOCOCCUS TINA (SW AB/URINE/PAPon 11-09-2020 Chlamydia trachomatis, TINA Negative Normal Negative [facility] Comment on above: Performed By: #### C T/NGNA #### [facility] [address] [place] [address] Sunshine Carlos Neisseria gonorrhoeae, TINA Negative Normal Negative [facility] Comment on above: Performed By: #### C T/NGNA #### [facility] [address] [place] [address] Sunshine Carlos Covid-19 PCR (CVDTB)on 10-18 SARS-CoV-2 (COVID-19) RNA TINA+probe Ql (Unsp spec) Not detected Normal NOT DETECTED [facility] Comment on above: Result Comment: This test is not yet approved or cleared by the [place] FDA. When there are no FDA-approved or cleared tests available, and other criteria are met, FDA can make tests available under an emergency access mechanism called an Emergency Use Authorization (EUA). The EUA for this test is supported by the [place] of Health and Human Service's (HHS's) declaration [...] Performed By: #### C VDAGS, CVDTBH #### [facility] [address] [place] [address] Sunshine Breanna ER URINE PROFILEon 1 Bilirubin Ql (U) Negative Normal NEGATIVE [facility] Comment on above: Performed By: #### C BC #### [facility] [address] [place] [address] Sunshine Breanna Clarity (U) CLEAR Normal CLEAR [facility] Comment on above: Performed By: #### C BC #### [facility] [address] [place] [address] Sunshine Breanna Color (U) LT. YELLOW Normal YELLOW [facility] Comment on above: Performed By: #### C BC #### [facility] [address] [place] [address] Sunshine Breanna ERUAHD A micrscopic examination will be performed if indicated. Normal [facility] Comment on above: Performed By: #### C BC #### [facility] [address] [place] [address] Sunshine Breanna Glucose Ql (U) Negative Normal NEGATIVE [facility] Comment on above: Performed By: #### C BC #### [facility] [address] [place] [address] Sunshine Breanna Hemoglobin Ql (U) LARGE Abnormal NEGATIVE [facility] Comment on above: Performed By: #### C BC #### [facility] [address] [place] [address] Sunshine Breanna Ketones Ql (U) Negative Normal NEGATIVE [facility] Comment on above: Performed By: #### C BC #### [facility] [address] [place] [address] Sunshine Breanna LEUKOCYTES Negative Normal NEGATIVE [facility] Comment on above: Performed By: #### C BC #### [facility] [address] [place] [address] Sunshine Carlos Nitrite Ql (U) Negative Normal NEGATIVE [facility] Comment on above: Performed By: #### C BC #### [facility] [address] [place], [place] [id number] Sunshine Carlos pH (U) 5.5 [pH] Normal 5-9 [facility] Comment on above: Performed By: #### C BC #### [facility] [address] [place] [address] Sunshine Carlos SPEC GRAVITY >=1.030 Abnormal 1.005-<=1.02 5 [facility] Comment on above: Performed By: #### C BC #### [facility] [address] [place] [address] Sunshine Carlos UA PROTEIN Negative Normal NEGATIVE/ TRACE [facility] Comment on above: Performed By: #### C BC #### [facility] [address] [place] [address] Sunshine Carlos UR MICRO IND INDICATED Normal [facility] Comment on above: Performed By: #### C BC #### [facility] [address] [place] [address] Sunshine Carlos Urobilinogen Qn (U) 0.2 {Braden'U}/dL Normal 0.2 - 1. 0 [facility] Comment on above: Performed By: #### C BC #### [facility] [address] [place] [address] Sunshine Carlos URon 11-08-2020 , QUAL Negative Normal NEGATIVE The [facility] Comment on above: Performed By: #### C BC #### [facility] [address] [place], [place] [id number] Sunshine Carlos STREPT SCREENon 11-08-2020 STREP SCREEN A Positive Abnormal NEGATIVE [facility] Comment on above: Performed By: #### C BC #### [facility] [address] [place] [address] Sunshine Carlos SYMPTOMATIC COVID-19 ANTIGEN on 11-08-2020 EUA Statement SEE BELOW Normal [facility] Comment on above: Result Comment: This [...] Performed By: #### C IVELISSE, CVDTB #### [facility] [address] [place] [address] Sunshine Carlos SARS-CoV-2 (COVID-19) RNA TINA+probe Ql (Unsp spec) Negative Normal NEGATIVE [facility] Comment on above: Result Comment: CONF IRMATION BY PCR PENDING PER CDC GUIDELINES/ SYMPTOMATIC PATIENT. Performed By: #### C IVELISSE, CVDTB #### [facility] [address] [place] [address] Sunshine Breanna URINE MICROSCOPIC ONLYon AMORPHOUS CRYSTALS FEW Normal [facility] Comment on above: Performed By: #### C BC #### [facility] [address] [place] [address] Sunshinevinita Carlos BACTERIA SMALL Abnormal NONE SEEN [facility] Comment on above: Performed By: #### C BC #### [facility] [address] [place] [address] Sunshine Breanna Bacteria identified Cx Nom (U) INDICATED Normal [facility] Comment on above: Performed By: #### C BC #### [facility] [address] [place] [address] Sunshine Breanna CAST NONE SEEN Normal NONE SEEN [facility] Comment on above: Performed By: #### C BC #### [facility] [address] [place] [address] Sunshine Breanna Crystals LM Nom (Urine sed) SEEN Abnormal NONE SEEN [facility] Comment on above: Performed By: #### C BC #### [facility] [address] [place], [place] [id number] Sunshine Carlos Epithelial cells LM Ql (Urine sed) MODERATE Abnormal NONE SEEN /RARE [facility] Comment on above: Performed By: #### C BC #### [facility] [address] [place], [place] [id number] Sunshnie Breanna MUCOUS MODERATE Abnormal NONE SEEN [facility] Comment on above: Performed By: #### C BC #### [facility] [address] [place] [address] Sunshine Breanna RBC 2-5 Abnormal 0-2 [facility] Comment on above: Performed By: #### C BC #### [facility] [address] [place] [address] Sunshine Breanna WBC 5-10 Abnormal NONE SEEN [facility] Comment on above: Performed By: #### C BC #### [facility] [address] [place], [place] [id number] Sunshinevinita Gonzalezen US SINGLE QUAD RT UPPERon US SINGLE [...] EDMUNDO GUZMAN Date: 2020-08-19 15:23 Normal [facility] AMYLASEon 08-17-2020 Amylase [Catalytic activity/Vol] 49 U/L Normal 31-110 [facility] Comment on above: Performed By: #### C BC #### [facility] [address] [place], [place] [id number] Sunshine Breanna CBC AUTO DIFFon 08-17-2020 BASO # 0.0 103/ul Normal 0.0-0.1 [facility] Comment on above: Performed By: #### C BC #### [facility] [address] [place], [place] [id number] Sunshine Breanna Basophils/100 WBC (Bld) 0.6 % Normal 0.2-2.0 [facility] Comment on above: Performed By: #### C BC #### [facility] [address] [place], [place] [id number] Sunshine Breanna EO # 0.1 103/ul Normal 0.0-0.7 [facility] Comment on above: Performed By: #### C BC #### [facility] [address] [place], [place] [id number] Sunshine Breanna Eosinophils/100 WBC (Bld) 1.3 % Normal 0.9-7.0 [facility] Comment on above: Performed By: #### C BC #### [facility] [address] [place], [place] [id number] Sunshine Breanna Erythrocyte distribution width (RBC) [Ratio] 13.0 % Normal 11.0-15.0 [facility] Comment on above: Performed By: #### C BC #### [facility] [address] [place], [place] [id number] Sunshine Breanna Hematocrit (Bld) [Volume fraction] 39.1 % Normal 36.0-48.0 [facility] Comment on above: Performed By: #### C BC #### [facility] [address] [place], [place] [id number] Sunshine Breanna Hemoglobin (Bld) [Mass/Vol] 13.2 g/dL Normal 12.0-16.0 [facility] Comment on above: Performed By: #### C BC #### [facility] [address] [place] [address] Snushine Breanna IG # 0.01 10e3/ul Normal 0.00-0.03 [facility] Comment on above: Performed By: #### C BC #### [facility] [address] [place] [address] Sunshine Breanna IG % 0.1 % Normal 0.0-0.5 [facility] Comment on above: Performed By: #### C BC #### [facility] [address] [place] [address] Sunshine Breanna LYMPH # 2.4 103/ul Normal 1.2-3.8 [facility] Comment on above: Performed By: #### C BC #### [facility] [address] [place] [address] Sunshine Breanna Lymphocytes/100 WBC (Bld) 33.5 % Normal 20.5-60.0 [facility] Comment on above: Performed By: #### C BC #### [facility] [address] [place] [address] Sunshine Breanna MANUAL DIFF REQ NO Normal [facility] Comment on above: Performed By: #### C BC #### [facility] [address] [place] [address] Sunshine Breanna MCH (RBC) [Entitic mass] 30.6 pg Normal 26.7-34.0 [facility] Comment on above: Performed By: #### C BC #### [facility] [address] [place] [address] Sunshine Breanna MCHC (RBC) [Mass/Vol] 33.8 g/dL Normal 29.9-35.2 [facility] Comment on above: Performed By: #### C BC #### [facility] [address] [place] [address] Sunshine Breanna MCV (RBC) [Entitic vol] 90.7 fL Normal 81.0-99.0 [facility] Comment on above: Performed By: #### C BC #### [facility] [address] [place] [address] Sunshine Breanna MONO # 0.3 103/ul Normal 0.3-0.8 [facility] Comment on above: Performed By: #### C BC #### [facility] [address] [place], [place] [id number] Sunshine Carlos Monocytes/100 WBC (Bld) 4.1 % Normal 1.7-12.0 [facility] Comment on above: Performed By: #### C BC #### [facility] [address] [place] [address] Sunshinevinita Gonzalezen NEUT # 4.2 103/ul Normal 1.4-6.5 [facility] Comment on above: Performed By: #### C BC #### [facility] [address] [place] [address] Sunshine Carlos Neutrophils/100 WBC (Bld) 60.4 % Normal 43.0-75.0 [facility] Comment on above: Performed By: #### C BC #### [facility] [address] [place] [address] Sunshine Carlos Platelet mean volume (Bld) [Entitic vol] 10.7 fL Normal 9.5-13.5 [facility] Comment on above: Performed By: #### C BC #### [facility] [address] [place] [address] Sunshine Gonzalezen PLT 321 103/ul Normal 150-450 [facility] Comment on above: Performed By: #### C BC #### [facility] [address] [place] [address] Sunshinevinita Gonzalezen RBC 4.31 106/ul Normal 4.20-5.40 [facility] Comment on above: Performed By: #### C BC #### [facility] [address] [place], [place] [id number] Sunshine Breanna WBC 7.0 103/ul Normal 4.0-11.0 [facility] Comment on above: Performed By: #### C BC #### [facility] [address] [place] [address] Sunshine Carlos LIPASEon 08-17-2020 Lipase [Catalytic activity/Vol] 97.0 U/L Normal 23.0-300.0 [facility] Comment on above: Performed By: #### T CANDE, CMP, LIPA, JANINE #### [facility] [address] [id number] Sunshinevinita Gonzalezen PROF 14(COMP METB)on 021 Albumin [Mass/Vol] 3.5 g/dL Normal 3.5-5.0 [facility] Comment on above: Performed By: #### T CANDE, CMP, LIPA, JANINE #### [facility] [address] [place] [address] Sunshine Breanna Albumin/Globulin [Mass ratio] 0.8 {ratio} Normal [facility] Comment on above: Performed By: #### T CANDE, CMP, LIPA, JANINE #### [facility] [address] [place] [address] Sunshine Breanna ALP [Catalytic activity/Vol] 64 U/L Normal 38-126 [facility] Comment on above: Performed By: #### T CANDE, CMP, LIPA, JANINE #### [facility] [address] [place] [address] Sunshine Breanna ALT [Catalytic activity/Vol] 12 U/L Normal 9-52 [facility] Comment on above: Performed By: #### T CANDE, CMP, LIPA, JANINE #### [facility] [address] [address] Sunshine Breanna Anion gap [Moles/Vol] 14.9 mmol/L Normal [facility] Comment on above: Performed By: #### T CANDE, CMP, LIPA, JANINE #### [facility] [address] [address] Sunshine Breanna AST [Catalytic activity/Vol] 9 U/L Critically low 14-36 [facility] Comment on above: Performed By: #### T CANDE, CMP, LIPA, JANINE #### [facility] [address] [address] Sunshine Breanna Bilirubin [Mass/Vol] 0.2 mg/dL Normal 0.2-1.3 [facility] Comment on above: Performed By: #### T CANDE, CMP, LIPA, JANINE #### [facility] [address] [place] [address] Sunshine Breanna Calcium [Mass/Vol] 8.9 mg/dL Normal 8.4-10.2 [facility] Comment on above: Performed By: #### T CANDE, CMP, LIPA, JANINE #### [facility] [address] [place] [address] Sunshine Breanna Chloride [Moles/Vol] 108 mmol/L Critically high 98-107 [facility] Comment on above: Performed By: #### T CANDE, CMP, LIPA, JANINE #### [facility] [address] [place] [address] Sunshine Breanna CO2 [Moles/Vol] 23.8 mmol/L Normal 22.0-30.0 [facility] [place] Comment on above: Performed By: #### T CANDE, CMP, LIPA, JANINE #### [facility] [address] [place] [address] Sunshine Breanna Creatinine [Mass/Vol] 0.81 mg/dL Normal 0.52-1.04 [facility] Comment on above: Performed By: #### T CANDE, CMP, LIPA, JANINE #### [facility] [address] [place] [address] Sunshine Breanna EGFR-AF MICRONESIAN >60 Normal >=60 [facility] [place] Comment on above: Performed By: #### T CANDE, CMP, LIPA, JANINE #### [facility] [address] [place] [address] Sunshine Breanna EGFR-NON AF MICRONESIAN >60 Normal >=60 [facility] Comment on above: Performed By: #### T CANDE, CMP, LIPA, JANINE #### [facility] [address] [place] [address] Sunshine Breanna Globulin (S) [Mass/Vol] 4.4 g/dL Normal [facility] Comment on above: Performed By: #### T CANDE, CMP, LIPA, JANINE #### [facility] [address] [place] [address] Sunshine Breanna Glucose [Mass/Vol] 92 mg/dL Normal 74-106 [facility] Comment on above: Performed By: #### T CANDE, CMP, LIPA, JANINE #### [facility] [address] [place] [address] Sunshine Breanna Potassium [Moles/Vol] 3.7 mmol/L Normal 3.4-5.0 [facility] Comment on above: Performed By: #### T CANDE, CMP, LIPA, JANINE #### [facility] [address] [place] [address] Sunshine Breanna Protein [Mass/Vol] 7.9 g/dL Normal 6.1-8.2 [facility] Comment on above: Performed By: #### T CANDE, CMP, LIPA, JANINE #### [facility] [address] [place] [address] Sunshine Breanna Sodium [Moles/Vol] 143 mmol/L Normal 137-145 [facility] Comment on above: Performed By: #### T CANDE, CMP, LIPA, JANINE #### [facility] [address] [place] [address] Sunshine Breanna Urea nitrogen [Mass/Vol] 14.0 mg/dL Normal 7.0-17.0 [facility] Comment on above: Performed By: #### T CANDE, CMP, LIPA, JANINE #### [facility] [address] [place] [address] Sunshine Breanna Urea nitrogen/Creatinine [Mass ratio] 17.3 mg/mg Normal [facility] Comment on above: Performed By: #### T CANDE, CMP, LIPA, JANINE #### [facility] [address] [place] [address] Sunshine Breanna PREG QUANT HCGon 06-02-2020 HCG QUANT 14 mIU/mL Normal [facility] Comment on above: Performed By: #### C VDAGS, CVDTBH #### [facility] [address] [place] [address] Sunshine Breanna HCG RANGE SEE BELOW Normal [facility] Comment on above: Result Comment: 5-50 0-1 WEEK 40-300 1-2 WEEKS 100-1,000 2-3 WEEKS 500-6,000 3-4 WEEKS 5,000-200,000 1-2 MONTHS 10,000-100,000 2-3 MONTHS 3,000-50,000 2ND TRIMESTER 1,000-50,000 3RD TRIMESTER Performed By: #### C VDAGS, CVDTB #### [facility] [address] [address] Sunshine Breanna PREG QUANT HCGon 05-20-2020 HCG QUANT 13 mIU/mL Normal [facility] Comment on above: Performed By: #### C BC #### [facility] [address] [id number] Sunshine Breanna HCG RANGE SEE BELOW Normal [facility] Comment on above: Result Comment: 5-50 0-1 WEEK 40-300 1-2 WEEKS 100-1,000 2-3 WEEKS 500-6,000 3-4 WEEKS 5,000-200,000 1-2 MONTHS 10,000-100,000 2-3 MONTHS 3,000-50,000 2ND TRIMESTER 1,000-50,000 3RD TRIMESTER Performed By: #### C BC #### [facility] [address] [place] [address] Sunshine Breanna PREG QUANT HCGon 05-06-2020 HCG QUANT 20 mIU/mL Normal [facility] Comment on above: Performed By: #### P REGQNT #### [facility] [address] [place], [place] [id number] Sunshine Breanna HCG RANGE SEE BELOW Normal [facility] Comment on above: Result Comment: 5-50 0-1 WEEK 40-300 1-2 WEEKS 100-1,000 2-3 WEEKS 500-6,000 3-4 WEEKS 5,000-200,000 1-2 MONTHS 10,000-100,000 2-3 MONTHS 3,000-50,000 2ND TRIMESTER 1,000-50,000 3RD TRIMESTER Performed By: #### P REGQNT #### [facility] [address] [place] [address] Sunshine Breanna PREG QUANT HCGon 04-29-2020 HCG QUANT 21 mIU/mL Normal [facility] Comment on above: Performed By: #### P REGQNT #### [facility] [address] [place] [address] Sunshine Breanna HCG RANGE SEE BELOW Normal [facility] Comment on above: Result Comment: 5-50 0-1 WEEK 40-300 1-2 WEEKS 100-1,000 2-3 WEEKS 500-6,000 3-4 WEEKS 5,000-200,000 1-2 MONTHS 10,000-100,000 2-3 MONTHS 3,000-50,000 2ND TRIMESTER 1,000-50,000 3RD TRIMESTER Performed By: #### P REGQNT #### [facility] [address] [place] [address] Sunshine Breanna ABO AND RH TYPEon 04-22-2020 ABO and Rh group Nom (Bld) ABO Rh Typing O Rh Positive Normal [facility] Comment on above: Performed By: #### C BC #### [facility] [address] [place] [address] Sunshine Breanna PREG QUANT HCGon 04-22-2020 HCG QUANT 37 mIU/mL Normal [facility] Comment on above: Performed By: #### P REGQNT #### [facility] [address] [place] [address] Sunshine Breanna HCG RANGE SEE BELOW Normal [facility] Comment on above: Result Comment: 5-50 0-1 WEEK 40-300 1-2 WEEKS 100-1,000 2-3 WEEKS 500-6,000 3-4 WEEKS 5,000-200,000 1-2 MONTHS 10,000-100,000 2-3 MONTHS 3,000-50,000 2ND TRIMESTER 1,000-50,000 3RD TRIMESTER Performed By: #### P REGQNT #### [facility] [address] [place], [place] [id number] Sunshine Breanna ED Note-Physicianon 10-16-19 20 ED Note-Physician [id number]#[id number]:[id number] Normal [facility] Chlam and gonorrhea: Amp, Ur ine -UHEon 01-12-2017 Chlam and gonorrhea: Amp, Urine -UHE Negative Negative THIS TEST WAS PERFORMED USING A REAL TIME PCR ASSAY. Normal [facility] Comment on above: Performed By: #### R NABU ####[address] [address] Beta HCG (Qual), Urine - MCH on 01-09-2017 HCG.beta subunit ( test) Ql (U) Positive Abnormal Negative [facility] Comment on above: Performed By: #### H CGUMD, UR1MD ####[facility] [place], [place] [address] Beta HCG, quant, S - MCHon 1 Beta HCG, quant, S - MCH 36014.0 mIU/mL Normal [facility] Comment on above: Result Comment: FEMA LE GESTATIONAL AGERESULTS <10 ARE CONSIDERED NEGATIVE4 WEEKS 4700-232204 mIU/mL5 WEEKS 3660-296656 mIU/mL6 WEEKS 88170-317164 mIU/mL7 WEEKS 14348-707264 mIU/mL8 WEEKS 48395-354252 mIU/mL9 WEEKS 84187-730402 mIU/mL10 WEEKS 34953-519786 mIU/mL11 WEEKS 6480-369039 mIU/ml12 WEEKS 6740-427829 mIU/mL13-27 WEEKS 8200-859246 mIU/mL28-40 WEEKS 2320-93160 mIU/mL Performed By: #### C BCMD, PTPTMD, TYSCMD, QHCGMD ####[address] [place], [place] [address] CBC, ELECTRONIC DIFF, PLATEL ET - MCHon 01-09-2017 Absolute Basophil 0.0 K/uL Normal 0.0-0.23 [facility] Comment on above: Performed By: #### C BCMD, PTPTMD, TYSCMD, QHCGMD ####[address] [place], [place] [address] Absolute Grans 5.9 K/uL Normal 1.8-7.7 [facility] Comment on above: Performed By: #### C BCMD, PTPTMD, TYSCMD, QHCGMD ####[address] [place], [place] [address] Basophils/100 WBC Auto (Bld) 0.5 % Normal 0-2 [facility] Comment on above: Performed By: #### C BCMD, PTPTMD, TYSCMD, QHCGMD ####[address] [place], [place] [address] Eosinophils 0.1 10*3/uL Normal 0.0-0.7 [facility] Comment on above: Performed By: #### C BCMD, PTPTMD, TYSCMD, QHCGMD ####[address] [address] Eosinophils/100 leukocytes 1.0 % Normal 0-5.0 [facility] Comment on above: Performed By: #### C BCMD, PTPTMD, TYSCMD, QHCGMD ####[address] [address] Erythrocytes (RBC) 13.8 % Normal 11.5-14.5 [facility] Comment on above: Performed By: #### C BCMD, PTPTMD, TYSCMD, QHCGMD ####[address] [address] [employer] 64.6 % Normal 50-70 [facility] Comment on above: Performed By: #### C BCMD, PTPTMD, TYSCMD, QHCGMD ####[address] [address] Hematocrit (HCT) 34.5 % Low 35.0-45.0 [facility] Comment on above: Performed By: #### C BCMD, PTPTMD, TYSCMD, QHCGMD ####[address] [address] Hemoglobin mass conc (Bld) 31.0 pg Normal 27.0-34.0 [facility] Comment on above: Performed By: #### C BCMD, PTPTMD, TYSCMD, QHCGMD ####[address] [address] Hemoglobin mass conc (Bld) 11.7 g/dL Normal 11.7-15.5 [facility] Comment on above: Performed By: #### C BCMD, PTPTMD, TYSCMD, QHCGMD ####[address] [address] Lymphocytes 2.6 10*3/uL Normal 1.0-4.8 [facility] Comment on above: Performed By: #### C BCMD, PTPTMD, TYSCMD, QHCGMD ####[address] [place], [place] [address] Lymphocytes/100 leukocytes 28.7 % Normal 22.0-44.0 [facility] Comment on above: Performed By: #### C BCMD, PTPTMD, TYSCMD, QHCGMD ####[address] [place], [place] [address] MCH 3.78 M/uL Low 3.8-5.1 [facility] Comment on above: Performed By: #### C BCMD, PTPTMD, TYSCMD, QHCGMD ####[address] [address] MCH 9.1 K/uL Normal 4.5-11.0 [facility] Comment on above: Performed By: #### C BCMD, PTPTMD, TYSCMD, QHCGMD ####[address] [address] MCV 91.0 fL Normal 81.0-100.0 [facility] Comment on above: Performed By: #### C BCMD, PTPTMD, TYSCMD, QHCGMD ####[address] [address] Monocytes 0.5 10*3/uL Normal 0.0-0.9 [facility] Comment on above: Performed By: #### C BCMD, PTPTMD, TYSCMD, QHCGMD ####[address] [address] Monocytes/100 leukocytes 5.2 % Normal 0-7.0 [facility] Comment on above: Performed By: #### C BCMD, PTPTMD, TYSCMD, QHCGMD ####[address] [address] Platelet mean volume (PMV) 8.3 fL Normal 7.5-11.2 [facility] Comment on above: Performed By: #### C BCMD, PTPTMD, TYSCMD, QHCGMD ####[address] [address] Platelets 281 10*3/uL Normal 150-400 [facility] Comment on above: Performed By: #### C BCMD, PTPTMD, TYSCMD, QHCGMD ####[facility] [place], [place] [address] ED PROVIDERon 01-09-2017 [facility] HIM CAC NOTES Normal [facility] NOTES Normal [facility] OSUHIMCACCODINGOPEDon 2016 [facility] HIM CAC Coding OP/ED Report Normal [facility] [facility] En[facility] Summary Report Normal [facility] a[facility] 33 s Normal 24.6-35.9 [facility] Comment on above: Performed By: #### C BCMD, PTPTMD, TYSCMD, QHCGMD ####[facility], [place] [address] INR Coag RelTime (Bld) 1.1 {INR} Normal 0.87-1.15 [facility] Comment on above: Performed By: #### C BCMD, PTPTMD, TYSCMD, QHCGMD ####[place] [address] [place] [address] MCH 13.3 sec Normal 11.5-14.3 [facility] Comment on above: Performed By: #### C BCMD, PTPTMD, TYSCMD, QHCGMD ####[place] [address], [place] [address] TYPE [facility]CREEN [facility] ABO/RH(D) - MCH: O POSITIVE ANTIBODY SCREEN - MCH: Negative Normal [facility] Comment on above: Performed By: #### C BCMD, PTPTMD, TYSCMD, QHCGMD ####[facility], [place] [address] Urinalysis reflex to [facility] COMMENT URINE None Normal [facility] Comment on above: Performed By: #### H CGUMD, UR1MD ####[facility], [place] [address] Squamous Epithelial 2+ /HPF Normal [facility] Comment on above: Performed By: #### H CGUMD, UR1MD ####[facility], [place] [address] Urine, bacteria in sediment Absent Normal Absent [facility] Comment on above: Performed By: #### H CGUMD, UR1MD ####[address], [place] [address] Urine, erythrocytes in sediment by area 0-2 Normal 0-2 [facility] Comment on above: Performed By: #### H CGUMD, UR1MD ####[address], [place] [address] Urine, leukocytes in sedmiment 0-5 Normal 0-5 [facility] Comment on above: Performed By: #### H CGUMD, UR1MD ####[address], [place] [address] Bilirubin Urine Negative Normal Negative [facility] Comment on above: Performed By: #### H CGUMD, UR1MD ####[address], [place] [address] Blood Urine Moderate Abnormal Negative [facility] Comment on above: Performed By: #### H CGUMD, UR1MD ####[address], [place] [address] Nitrites Urine Negative Normal Negative [facility] Comment on above: Performed By: #### H CGUMD, UR1MD ####[address], [place] [address] Protein Urine Negative Normal Negative [facility] Comment on above: Performed By: #### H CGUMD, UR1MD ####[address], [place] [address] Specific Lehr urine 1.020 Normal 1.001-1.035 [facility] Comment on above: Performed By: #### H CGUMD, UR1MD ####[address], [place] [address] Urine, appearance Clear Normal Clear [facility] Comment on above: Performed By: #### H CGUMD, UR1MD ####[address] [facility], [place] [address] Urine, color Yellow Normal YEL,DKYEL [facility] Comment on above: Performed By: #### H CGUMD, UR1MD ####[address], [place] [address] Urine, glucose presence Negative Normal Negative [facility] Comment on above: Performed By: #### H CGUMD, UR1MD ####[address], [place] [address] Urine, ketones presence Negative Normal Negative [facility] Comment on above: Performed By: #### H CGUMD, UR1MD ####[address], [place] [address] Urine, leukocyte esterase presence Negative Normal Negative [facility] Comment on above: Performed By: #### H CGUMD, UR1MD ####[address], [place] [address] Urine, pH 6.0 [pH] Normal 5.0-7.0 [facility] Comment on above: Performed By: #### H CGUMD, UR1MD ####[address], [place] [address] Urobilinogen urine 0.2 EU/dL Normal <2.0 [facility] Comment on above: Performed By: #### H CGUMD, UR1MD ####[address], [place] [address] Vital Signs Date Time Vital Sign Value Performing Clinician Facility 01-15-2024 14:52-0400 Body mass index (BMI) [Ratio] 36.64 kg/m2 Janine SEVILLA Work Phone: [facility] 01-15-2024 14:52-0400 Body weight 109.32 kg Janine SEVILLA Work Phone: [facility] 01-15-2024 14:52-0400 Diastolic blood pressure 74 mm[Hg] Janine SEVILLA Work Phone: [facility] 01-15-2024 14:52-0400 Systolic blood pressure 118 mm[Hg] Janine SEVILLA Work Phone: [facility] 01-01-2024 13:26-0400 Body mass index (BMI) [Ratio] 35.88 kg/m2 Janine SEVILLA Work Phone: [facility] 01-01-2024 13:26-0400 Body weight 107.05 kg Janine SEVILLA Work Phone: [facility] 01-01-2024 13:26-0400 Diastolic blood pressure 76 mm[Hg] Janine SEVILLA Work Phone: [facility] 01-01-2024 13:26-0400 Systolic blood pressure 118 mm[Hg] Janine [place] PA Work Phone: [facility] 12-18-2023 15:06-0400 Body mass index (BMI) [Ratio] 35.54 kg/m2 Dmitriy Rodo DO Work Phone: [facility] 12-18-2023 15:06-0400 Body weight 106.03 kg Dmitriy Rodo DO Work Phone: [facility] 12-18-2023 15:06-0400 Diastolic blood pressure 68 mm[Hg] Dmitriy Rodo DO Work Phone: [facility] 12-18-2023 15:06-0400 Systolic blood pressure 108 mm[Hg] Dmitriy Rodo DO Work Phone: [facility] [employer] 03-29-2021 11:15-0500 Body height 172.72 cm Arminda Holt Other [employer] Other 03-29-2021 11:15-0500 Body mass index (BMI) [Ratio] 36.49 kg/m2 Arminda Holt Other [employer] Other 03-29-2021 11:15-0500 Body temperature 97 [degF] Arminda Holt Other [employer] Other 03-29-2021 11:15-0500 Body weight 108.86 kg Arminda Holt Other [employer] Other 03-29-2021 11:15-0500 SaO2% (BldA) [Mass fraction] 99 % Arminda Holt Other [facility] [employer] Other Encounters Encounter Date Encounter Type Care Provider Facility Start: 01-17-2024 End: 01-17-2024 ambulatory DMITRIY R [facility] Start: 01-15-2024 End: 01-15-2024 ambulatory JANINE GUZMAN Not Available Start: 01-15-2024 End: 01-15-2024 flow sheet Janine SEVILLA Work Phone: [facility] Comment on above: Third trimester preg kianna; 34 weeks gestation of ; H/O: iron deficiency anemia Start: 01-15-2024 End: 01-15-2024 Bamboo flowsheet Janine SEVILLA Work Phone: [facility] Start: 01-15-2024 End: 01-15-2024 Bamboo flowsheet Janine SEVILLA Work Phone: [facility] Start: 01-15-2024 End: 01-15-2024 Clinisync Result Encounter Janine SEVILLA Work Phone: [facility] Unsolicited Start: 01-01-2024 End: 01-01-2024 [...] gestation of Start: 12-19-2023 End: 12-19-2023 ambulatory [facility] Start: 12-18-2023 End: 12-18-2023 ambulatory DMITRIY RODO Not Available Start: 12-18-2023 End: 12-18-2023 flow sheet Dmitriy Rodo DO Work Phone: [facility] Comment on above: Third trimester preg kianna; 30 weeks gestation of ; H/O placenta previa Start: 12-18-2023 End: 12-18-2023 Bamboo flowsheet Dmitriy Rodo DO Work Phone: [facility] Start: 12-18-2023 End: 12-18-2023 Bamboo flowsheet Dmitriy Rodo DO Work Phone: [facility] Start: 12-04-2023 End: 12-04-2023 ambulatory JANINE THOMAS Not Available Start: 11-22-2023 End: 11-22-2023 ambulatory DMITRIY R [facility] Start: 11-20-2023 End: 11-20-2023 ambulatory DMITRIY RODO Not Available Start: 10-25-2023 End: 10-25-2023 ambulatory DMITRIY [facility] Start: 10-24-2023 End: 10-24-2023 ambulatory JANINE THOMAS Not Available Start: 09-24-2023 End: 09-24-2023 ambulatory DMITRIY RODO Not Available Start: 08-22-2023 End: 08-22-2023 ambulatory DMITRIY RODO Not Available Start: 07-26-2023 End: 07-26-2023 ambulatory DMITRIY RODO Not Available Start: 03-29-2021 End: 03-29-2021 ambulatory Arminda Holt Other [employer] Other Start: 03-29-2021 Office outpatient ne w [...] Emergency department patient visit SELF SELF [facility] Procedures Date Procedure Procedure Detail Performing Clinician Start: 01-15-2024 ALL CBC WITH AUTO DIFF Janine SEVILLA Work Phone: Start: 01-15-2024 Urnls dip stick/tabl et rgnt non-auto w/o micrscp Janine SEVILLA Work Phone: Start: 01-01-2024 Urnls dip stick/tabl et rgnt non-auto w/o micrscp Janine SEVILLA Work Phone: Start: 12-18-2023 Urnls dip stick/tabl et rgnt non-auto w/o micrscp Dmitriyjuan diego Whatleycherelle MATTHEWS Work Phone: Plan of Treatment Date Care Activity Detail Author Start: 01-22-2024 End: 01-22-2024 Patient encounter procedure 01/22/2024 1:00 PM EST Routine [facility] [address] [place] [id number] Janine Guzman PA [address] [place] [address] [facility] Start: 01-15-2024 End: 01-15-2024 Patient encounter procedure 01/15/2024 2:50 PM EDT Routine [facility] [address] [place] [id number] Janine Guzman PA [address] [place] [address] [facility] Start: 01-01-2024 End: 01-01-2024 Patient encounter procedure 01/01/2024 1:00 PM EDT Routine [facility] [address] [phone] Janine Guzman PA [address] [place] [address] [facility] Start: 12-18-2023 End: 12-17-2024 US biophysical profile w non stress test US biophysical profile w non stress test Imaging Routine H/O placenta previa Expected: 12/18/2023 (Approximate), Expires: 12/17/2024 [facility] Work Phone: Comment on above: Expected: 12/18/2023 (Approximate), Expires: 12/17/2024 CBC W Auto Different ial panel - Blood CBC and differential Lab Routine H/O: iron deficiency anemia Ordered: 01/15/2024 [facility] Work Phone: Comment on above: Ordered: 01/15/2024 Payers Date Payer Category Payer [employer] BCBS Memb er Subscriber Plan / Payer (Effective 2022-Present) Name: Kristin Grigsby Relation to Subscriber: Self Name: Kristin Grigsby Payer ID: Not on file Type: Not on file Address: [address] [place] [id number] 2022 Unknown BCBS BCBS xxxxxx [id number] 2022-Present [phone] [address] [place] [id number]. 2.7.3.181458.315 2022 Unknown [id number] 2017 Unknown [id number] 1989 Unknown [id number] 2.16.840.1.879716.3.579. 2.593 1989 Unknown [id number] 2.16.840.1.539995.3.579. 2.593 1989 Unknown [id number] 2.16.840.1.350418.3.579. 2.593 1989 Unknown [id number] 2.16.840.1.970470.3.579. 2.593 1989 Unknown [id number] 2.16.840.1.689170.3.579. 2.593 1989 Unknown [id number] 2.16.840.1.132526.3.579. 2.593 1989 Unknown [id number] 2.16.840.1.722657.3.579. 2.593 1989 Unknown [id number] 2.16.840.1.584588.3.579. 2.593 1989 Unknown [id number] 2.16.840.1.495634.3.579. 2.1286 1989 Unknown [id number] 2.16.840.1.521535.3.579. 2.1259 1989 Unknown [id number] 2.16.840.1.011456.3.579. 2.1259 1989 Unknown [id number] 2.16.840.1.942231.3.579. 2.1259 1989 Unknown [id number] 2.16.840.1.041426.3.579. 2.1259 1989 Unknown [id number] 2.16.840.1.404420.3.579. 2.1259 1989 Unknown [id number] 2.16.840.1.079611.3.579. 2.1259 1989 Unknown [id number] 2.16.840.1.704802.3.579. 2.1259 1989 Unknown [id number] 2.16.840.1.790843.3.579. 2.1259 1989 Unknown [id number] 2.16.840.1.356187.3.579. 2.1259 1989 Unknown [id number] 2.16.840.1.554408.3.579. 2.6 1989 Unknown [id number] 2.16.840.1.554331.3.579. 2.6 1989 Unknown [id number] 2.16.840.1.797772.3.579. 2.6 1989 Unknown [id number] 2.16.840.1.430239.3.579. 2.1286 1959 Private Health Insurance [id number] 1960 Self-pay [id number] Unknown [id number] 2.16.840.1.362193.19 Social History Date Type Detail Facility Start: 08-22-2023 Sex Assigned At [employer] Other Start: 08-22-2023 End: 01-01-2024 Tobacco smoking status OKIS Ex-smoker [facility] Start: 08-18-2015 End: 09-19-2014 History of tobacco use Current smoker [facility] Start: 08-18-2015 End: 09-19-2014 History of tobacco use Cigarette Smoker [facility] Start: 08-22-2023 End: 01-01-2024 Cigarettes smoked current (pack per day) - Reported 0.5 [facility] Start: 08-22-2023 End: 01-01-2024 Tobacco use and exposure Smokeless tobacco non-user [facility] Start: 12-04-2023 End: 01-01-2024 Alcoholic beverage intake Ex-drinker (finding) [facility] Start: 05-30-2023 [facility] Start: 1990 Sex assigned at Not on file [facility] Start: 07-26-2023 Gender identity Identifies as female gender (finding) [facility] Start: 07-26-2023 Sexual orientation Heterosexual (finding) [facility] History of Present illness Narrative 01-15-2024 DI Serna 01/15/2024 2:50 PM EDT Note Date & [...] Onset Asthma Mother Halina Cardenas Diabetes Father Jaek Grigsby Asthma Brother Deion Grigsby SURGICAL HISTORY [...] reviewed, and patient is to proceed to [facility] on her scheduled day. Orders Placed [...] nursing note reviewed. Exam conducted with a physician vice president present. Vitals: Estimated body mass index is [...] Dmitriy Koehler DO documented in this encounter [facility] Healthcare Evaluation note 03-29-2021 Note Date [...] care instructions given in writting by [facility] Care At Home document. [employer] Other Evaluation note Note Date & Type Note Facility Evaluation note Diagnosis Third trimester state, incidental 30 weeks gestation of H/O placenta previa documented in this encounter [facility] Evaluation note Note Date & Type Note Facility Evaluation note Diagnosis Third trimester state, incidental 32 weeks gestation of documented in this encounter [facility] Healthcare Evaluation note Note Date & Type Note Facility Evaluation note Diagnosis Third trimester state, incidental 34 weeks gestation of H/O: iron deficiency anemia Personal history of diseases of blood and blood-forming organs documented in this encounter [facility] Summary [...] section and content) DATE CREATED AUTHOR 09/11/2017 [facility]spital DATE CREATED AUTHOR AUTHOR'S ORGANIZ ATION 10/18/[address] [facility] ical Center DATE CREATED AUTHOR AUTHOR'S ORGANIZ ATION 11/24/2020 [facility] DATE CREATED AUTHOR AUTHOR'S ORGANIZ ATION 04/08/2021 [facility] DATE CREATED AUTHOR AUTHOR'S ORGANIZ ATION 04/18/2021 [facility] [place] [facility] Special[facility] DATE CREATED AUTHOR AUTHOR'S ORGANIZ ATION 06/24/2021 [facility] DATE CREATED AUTHOR AUTHOR'S ORGANIZ ATION 12/21/2023 [facility] DATE CREATED AUTHOR AUTHOR'S ORGANIZ ATION 01/17/2024 [facility] [place] d[facility] Specialists EPIC DATE CREATED AUTHOR AUTHOR'S ORGANIZ ATION 01/19/2024 [facility] REASON FOR VISIT (unrecogniz ed section [...] PRIMARY CLINICAL RECORDS. [facility]. provides no warranty or guarantee of the accuracy or completeness of information in this document.
[2024-01-21 14:16] VITALS: BP 130/78; PULSE 99
== END 2024-01-21 15:29 | disposition home or self-care (01) ==
LOC: FBCO 08:45 → FBC 14:12
PROVIDERS: Visit Provider Obstetrics & Gynecology
DX: O43.893 Other placental disorders, third trimester (principal)
CPT/HCPCS: 59025

== ENCOUNTER 2024-01-22 20:58 | Outpatient (REF) | payer BC, SELFPAY ==
--- OUTSIDE RECORDS SUMMARY | 2024-01-22 21:02 | XMS_ITS | CCD ---
Author Organization [facility] CliniSyil Care Team Providers Care Ammunition Specialist Name Role Phone SELF, SELF Unavailable [...] KOEHLER Attending Unavailable RODO, DMITRIY Attending Unavailable THOMAS, JANINE Attending Unavailable RODO, DMITRIY Attending Unavailable THOMAS, JANINE Attending Unavailable RODO, DMITRIY Attending Unavailable THOMAS, JANINE Attending Unavailable THOMAS, JANINE Attending Unavailable MACY BABCOCK Attending Unavailable FLORO, LYNNETTE Referring Unavailable FLORO, LYNNETTE Primary Care Unavailable RODO, DMITRIY R Referring Unavailable [facility] Unavailable DMITRIY KOEHLER Referring Unavailable [facility] Unavailable DMITRIY KOEHLER Referring Unavailable [facility] Unavailable Medications Current Medications Medication Drug Class(es) Dates Sig (Normalized) Sig (Original) [id number] 200 actuat albuterol 0.09 mg/actuat metered dose [...] 03-29-2021 Episodic Other aftercare (1 source) Other mcfp (current) drug therapy; Translations: [OTH PENITENTIARY CURRENT DRUG THERAPY] Onset: 08-19-2020 Episodic Residual [...] AUTO DIFFon BASOPHILS ABSOLUTE AUTO 0.1 [facility] Basophils/100 WBC (Bld) 0.7 % 0.2 - 2.0 % [facility] Eosinophils/100 WBC (Bld) 2.8 % 0.9 - 7.0 % [facility] Erythrocyte distribution width (RBC) [Ratio] 12.4 % 11.0 - 15.0 % [facility] Hematocrit (Bld) [Volume fraction] 30.8 % Low 36.0 - 48.0 % [facility] Hemoglobin (Bld) [Mass/Vol] 10.3 g/dL Low 12.0 - 16.0 g/dL [facility] IMMATURE GRANULOCYTES ABS AUTO 0.11 High [facility] Immature granulocytes/100 WBC (Bld) 1.3 % High 0.0 - 0.5 % [facility] Interpretation and review of laboratory results Abnormal [facility] LYMPHOCYTES ABSOLUTE AUTO 2 [facility] Lymphocytes/100 WBC (Bld) 24.4 % 20.5 - 60.0 % [facility] MCH (RBC) [Entitic mass] 31.7 pg 26. 7 - 34.0 pg [facility] MCHC (RBC) [Mass/Vol] 33.4 g/dL 29.9 - 35.2 g/dL [facility] MCV (RBC) [Entitic vol] 94.8 fL 81.0 - 99.0 fL [facility] MONOCYTES ABSOLUTE AUTO 0.6 [facility] Monocytes/100 WBC (Bld) 6.7 % 1.7 - 12.0 % [facility] NEUTROPHILS ABSOLUTE AUTO 5.3 [facility] Neutrophils/100 WBC (Bld) 64.1 % 43.0 - 75.0 % [facility] Platelet mean volume (Bld) [Entitic vol] 9.7 fL 9.5 - 13.5 fL [facility] TBH EO # 0.2 [facility] PLT 274 [facility] RBC 3.25 Low [facility] e [facility] WBC 8.2 [facility] Healthcar e Urinalysis macro (dipstick) panel (U)on 01-15-2024 Bilirubin, UA Negative Negative - 4(70) +++ mg/dL [facility] Blood, UA Negative Negative - 50 Wili/mcL [facility] Clarity, UA Clear [facility] Color, UA Yellow [facility] Glucose, UA Negative Negative - 1999(110) ++++ mg/dL [facility] Interpretation and review of laboratory results Normal [facility] Ketones, UA Negative Negative - 160(16) ++++ mg/dL [facility] Leukocytes, UA Negative Negative - 500+++ Yajaira/mcL [facility] Nitrite, UA Negative Negative - Positive [facility] pH, UA 7 5 - 9 [facility] Healthcar e Protein, UA Negative Negative - 1999(20) ++++ mg/dL [facility] Spec Grav, UA 1.02 1 - 1.03 [facility] Urobilinogen, UA 0.2 0.2 - 12 mg/dL [facility] Healthcar e Urinalysis macro (dipstick) panel (U)on 01-01-2024 Bilirubin, UA Negative Negative - 4(70) +++ mg/dL [facility] Blood, UA Negative Negative - 50 Wili/mcL [facility] Clarity, UA Clear [facility] Color, UA Yellow [facility] Health[facility] Glucose, UA Negative Negative - 1999(110) ++++ mg/dL [facility] Interpretation and review of laboratory results Abnormal [facility] Ketones, UA Positive Negative - 160(16) ++++ mg/dL [facility] Comment on above: trace Leukocytes, UA Negative Negative - 500+++ Yajaira/mcL [facility] Nitrite, UA Negative Negative - Positive [facility] pH, UA 7 5 - 9 [facility] Health[facility] Protein, UA Positive Negative - 1999(20) ++++ mg/dL [facility] Comment on above: 30 Spec Grav, UA 1.025 1 - 1.03 [facility] Urobilinogen, UA 0.2 0.2 - 12 mg/dL [facility] Urinalysis macro (dipstick) panel (U)on 12-18-2023 Bilirubin, UA Negative Negative - 4(70) +++ mg/dL [facility] Blood, UA Negative Negative - 50 Wili/mcL [facility] Clarity, UA Clear [facility] re Color, UA Yellow [facility] Glucose, UA Negative Negative - 1999(110) ++++ mg/dL [facility] Interpretation and review of laboratory results Abnormal [facility] Ketones, UA Negative Negative - 160(16) ++++ mg/dL [facility] Leukocytes, UA Negative Negative - 500+++ Yajaira/mcL [facility] Nitrite, UA Negative Negative - Positive [facility] pH, UA 6.5 5 - 9 [facility] e Protein, UA Trace Negative - 1999(20) ++++ mg/dL [facility] Spec Grav, UA 1.030 1 - 1.03 [facility] Urobilinogen, UA 0.2 0.2 - 12 mg/dL [facility] Complete Blood Count Auto Di ffon 06-14-2021 Basophils (Bld) [#/Vol] 0.0 10*3/uL Normal 0.0-0.2 [facility] Comment on above: Result Comment: PERF ORMED BY: [place] [address] PATHOLOGIST ASSISTANT STORE MANAGER STEPHANIE ROACH M.D. Performed By: #### C BC #### [address] Basophils/100 WBC (Bld) 0.6 % Normal . [facility] Comment on above: Performed By: #### C BC #### [address] Eosinophils (Bld) [#/Vol] 0.1 10*3/uL Normal 0.0-0.45 [facility] Comment on above: Performed By: #### C BC #### [place] [address] [place] Eosinophils/100 WBC (Bld) 1.7 % Normal . [facility] Comment on above: Performed By: #### C BC #### [address] Erythrocyte distribution width (RBC) [Ratio] 13.5 % Normal 11.9-15.3 [facility] Comment on above: Performed By: #### C BC #### [address] Hematocrit (Bld) [Volume fraction] 30.6 % Low 34.0-46.4 [facility] Comment on above: Performed By: #### C BC #### [address] Hemoglobin (Bld) [Mass/Vol] 10.2 g/dL Low 11.8-15.4 [facility] Comment on above: Performed By: #### C BC #### [address] Lymphocytes (Bld) [#/Vol] 2.1 10*3/uL Normal 1.00-4.8 [facility] Comment on above: Performed By: #### C BC #### [address] Lymphocytes/100 WBC (Bld) 24.1 % Normal . [facility] Comment on above: Performed By: #### C BC #### [address] MCH (RBC) [Entitic mass] 31.4 pg Normal 24.7-34.3 [facility] Comment on above: Performed By: #### C BC #### [address] MCV (RBC) [Entitic vol] 94.0 fL Normal 80-100 F [facility] Comment on above: Performed By: #### C BC #### [address] Mean Corpuscular HGB Conc 33.4 g/dL Normal 32.0-35.0 [facility] Comment on above: Performed By: #### C BC #### [facility] [address] [place] [address] [place] Monocytes (Bld) [#/Vol] 0.4 10*3/uL Normal 0.0-0.8 [facility] Comment on above: Performed By: #### C BC #### [facility] [address] [place] [id number] [place] Monocytes/100 WBC (Bld) 4.9 % Normal . [facility] Comment on above: Performed By: #### C BC #### [facility] [address] [place] [address] [place] Neutrophils (Bld) [#/Vol] 5.9 10*3/uL Normal 1.8-7.7 [facility] Comment on above: Performed By: #### C BC #### [facility] [address] [place] [address] [place] Neutrophils/100 WBC (Bld) 68.7 % Normal . [facility] Comment on above: Performed By: #### C BC #### [facility] [address] [place] [address] [place] Nucleated RBC/100 WBC (Bld) [Ratio] 0.1 % Normal 0-0.5 [facility] Comment on above: Performed By: #### C BC #### [facility] [address] [place] [address] [place] Platelet mean volume (Bld) [Entitic vol] 8.0 fL Normal 6.3-10.7 [facility] Comment on above: Performed By: #### C BC #### [facility] [address] [place] [address] [place] Platelets (Bld) [#/Vol] 298 10*3/uL Normal 150-450 [facility] Comment on above: Performed By: #### C BC #### [facility] [address] [place] [address] [place] RBC (Bld) [#/Vol] 3.25 10*6/uL Low 3.60-5.00 [facility] Comment on above: Performed By: #### C BC #### [facility] [address] [place] [address] WBC (Bld) [#/Vol] 8.6 10*3/uL Normal 4.5-11.[address] [facility] Comment on above: Performed By: #### C BC #### [facility] [address] [place] [address] [place] Dipstick and Microscopicon 0 06-14-2021 Appearance (U) Clear Normal Clear [facility] Comment on above: Order Comment: Name Collection Type:: Clean-Voided Midstream Performed By: #### A DDONUAPLUS, OBUDS #### [address] Bacteria,Urine None Seen Normal None Seen [facility] Comment on above: Order Comment: Name Collection Type:: Clean-Voided Midstream Performed By: #### A DDONUAPLUS, OBUDS #### [place] [address] [place] Bilirubin,Urine Negative Normal Negative [facility] Comment on above: Order Comment: Name Collection Type:: Clean-Voided Midstream Performed By: #### A DDONUAPLUS, OBUDS #### [address] Color (U) Yellow Normal Yellow [facility] Comment on above: Order Comment: Name Collection Type:: Clean-Voided Midstream Performed By: #### A DDONUAPLUS, OBUDS #### [facility] [address] [place] [address] [place] Glucose Ql (U) Normal Normal Normal [facility] Comment on above: Order Comment: Name Collection Type:: Clean-Voided Midstream Performed By: #### A DDONUAPLUS, OBUDS #### [place] [address] [place] Hyaline Casts,Urine 0-8 Normal 0-8 [facility] Comment on above: Order Comment: Name Collection Type:: Clean-Voided Midstream Result Comment: PERF ORMED BY: [place] [address] PATHOLOGIST ASSISTANT STORE MANAGER STEPHANIE ROACH M.D. Performed By: #### A HARJIT OBUDS #### [address] Ketones Ql (U) Negative Normal Negative [facility] Comment on above: Order Comment: Name Collection Type:: Clean-Voided Midstream Performed By: #### A DDSHENA OBUDS #### [address] Leukocyte esterase Test strip Ql (U) Negative Normal Negative [facility] Comment on above: Order Comment: Name Collection Type:: Clean-Voided Midstream Performed By: #### A DDSHENA OBUDS #### [address] Nitrite,Urine Negative Normal Negative [facility] Comment on above: Order Comment: Name Collection Type:: Clean-Voided Midstream Performed By: #### A DDONUAPLUS OBUDS #### [address] Occult Blood,Urine 3+ High Negative [facility] Comment on above: Order Comment: Name Collection Type:: Clean-Voided Midstream Result Comment: PERF ORMED BY: [place] [address] PATHOLOGIST ASSISTANT STORE MANAGER STEPHANIE ROACH M.D. Performed By: #### A HARJIT OBUDS #### [address] pH (U) 7.5 [pH] Normal 5.0-9.0 [facility] Comment on above: Order Comment: Name Collection Type:: Clean-Voided Midstream Performed By: #### A DDONUAPLUS OBUDS #### [place] [address] [place] Protein,Urine Negative Normal Negative [facility] Comment on above: Order Comment: Name Collection Type:: Clean-Voided Midstream Performed By: #### A DDONUAPLUS OBUDS #### [facility] [address] [place] [address] RBC,Urine 20-49 High 0-4 [facility] Comment on above: Order Comment: Name Collection Type:: Clean-Voided Midstream Performed By: #### A DDONUAPLUS, OBUDS #### [facility] [address] [place] [address] Specificy Crumrod,Urine 1.009 Normal 1.001-1.030 [facility] Comment on above: Order Comment: Name Collection Type:: Clean-Voided Midstream Performed By: #### A DDONUAPLUS, OBUDS #### [address] Squamous Epithelial Cell,Urine 1-2 Normal 0-2 [facility] Comment on above: Order Comment: Name Collection Type:: Clean-Voided Midstream Performed By: #### A DDONUAPLUS, OBUDS #### [address] Urobilinogen,Urine Normal Normal Normal [facility] Comment on above: Order Comment: Name Collection Type:: Clean-Voided Midstream Performed By: #### A DDONUAPLUS, OBUDS #### [address] WBC,Urine None Seen Normal 0-4 [facility] Comment on above: Order Comment: Name Collection Type:: Clean-Voided Midstream Performed By: #### A DDONUAPLUS, OBUDS #### [address] OB Urine Drug Screen (NO THC )on 06-14-2021 Amphetamine Screen,Urine Negative Normal Negative [facility] Comment on above: Performed By: #### A DDONUAPLUS, OBUDS #### [address] Barbiturate Screen,Urine Negative Normal Negative [facility] Comment on above: Performed By: #### A DDONUAPLUS, OBUDS #### [address] Benzodiazepines Screen,Urine Negative Normal Negative [facility] Comment on above: Performed By: #### A DDONUAPLUS, OBUDS #### [facility] [address] Cocaine Screen,Urine Negative Normal Negative [facility] Comment on above: Performed By: #### A DDONUAPLUS, OBUDS #### [facility] [address] Opiate Screen,Urine Negative Normal Negative [facility] Comment on above: Performed By: #### A DDONUAPLUS, OBUDS #### [facility] [address] Phencyclidine Screen, Urine Negative Normal Negative [facility] Comment on above: Result Comment: Thes e are unconfirmed results and should not be used for legal purposes. Drug Cut-Off Concentration: AMPH 1000 ng/mL NOLBERTO 200 ng/mL BIANCA 200 ng/mL COCM 300 ng/mL OP 300 ng/mL PCP 25 ng/mL PERFORMED BY: [place] [address] PATHOLOGIST ASSISTANT STORE MANAGER STEPHANIE ROACH M.D. Performed By: #### A DDONUAPLUS, OBUDS #### [address] OB 2nd/3rd Trimesteron OB 2nd/3rd Trimester [...] 4.6 cm (19 weeks, 6 days) Head Usbvgzleccwvb37.3 cm (19 weeks, 0 days) Abdominal Wtjauqwrnwszg68.6 cm (19 weeks, 0 days) Femur Length 3.1 cm (19 weeks, 3 days) PresentationBreech Weight (g) by Euiuqawolm07.4%* These measurements result in an estimated date [...] Ayo Jiménez on 04/18/2021 0921 Normal [facility] Iv Therapy Nurse Coding Summaryon 04-07-2021 Coding Summary HTMLBase 64 EqgdotsuTYv6oKw+PG hlYWQ+QO7ZPRBdF21i mQNeiX2KX4lSWN6ENS SGTEZCPI6AZY4waXA9 MAkvL6OvzzVj EuzbbCUwQL69NEa8AD T7tVcnJCfrdT4atKVq I2r0OsKbJL01lE62NL gtGSFrMnS6CzPslxyc bWFy W1tsMiWhpSMpCdn+PH RhYmxlIHdpZHRoPScx HYKfHkTasOlyCS4eBf 9yZGVyLWNvbGxhcHNl OiBj h9srROCyCNflGS5fzN pwO0FbcKG7ONTdf4u1 Fs13gUS+WCLrTIB0hS jrBMpnb089JfPav3hd IDM3 zAJiMGmlIFN8R89be5 E2JFZmJGDlILU9lKP4 iO3hdYnbbxfzT7OqvC BmZwT4XIN5wCXvnP9z bGln cifwlU4mIsh+Q09ESU 3CVGCORP4GVof3E4Jw PjwvdHI+YF42BZJkIZ 77qYNxuFPoy1lklQa8 JzEw ORKuHXQ2oCicKDrlm3 LaQPKgR64ktZMiu2M1 IGNvbGxhcHNlOyBlbX A9pR1mIRkpdefli3us dzsn Lwclc9mfdt85fB13P6 7lVTqvWMBkTXL1OGWe PBNibDoxow5zfB3kVq 8+UAicx3blv0ezvXt7 IjIw QRIhruQouTtpPXC8p6 FiKj30N7YvyYhfv5Wx Nsj3pj99rXYqx0R0fI A5USvqXHZofB3jESki ZnQ6 EFUlUrAgqE43sPSeCJ haEw1dcUvolBvlZZ0l RSHswmpuZUKjfX4dPR FjsSAqsLpjWG1vVEXp bjtm z111YvCiZOV3MMYexK XkO8NnwF4wLfNaWZUo OJMfD6VdvZItESqbV1 84CEqiBoK3IJHzwdTa Y2Fs OWWguNgkLoQ4h9Z2Ut 6Yj5QrasfvTRZ1DVmg QLHnXxRrNbJuFwF0B7 VzJas0JBTtyMdoOR8h J3Bh IVFtgmfegpwzbNL5XQ NlLVFvwU94zHNyYGoh Sm5sd5G9f750RSZbUN HpjY44Kc1yxTptFIUj dCBU uU8abdbth4wwqestDc UyDRPmHLi8OZb2YIPg bEdsRlPdTRX0StF8CM W3gMYslD4ktZdzciuw dG9w Oyc+S43usM8eSAB8ZM N8jizxOMDrbsUfZC30 GP51U5NrEyiyzWFisK U+PDQorvDuxBllIG2x YmFj u4fgp7XnRVciW1RrEP HiPGzbIhq8DYKmFGX2 hVB5lY1lOGXhTAiff3 P0pOW8U0UpgkHjrb7o b2xs FWRxJDyfB69vaIAqt9 N8AHUbdCZ7AOVvxArq ArJjmG93Vuj+PGNvbG bbo8HzWzglh4cux3lh dGg9 IjMwJSIgdmFsaWduPS W9a9SfIj42D57xVIpl ZHRoPSIxNSUiIHZhbG gjbt2zrE7hRe9+PGNv bCB3 zIM1lC4jQNSyKeR5UO gaR402WzYehSUtKbcq d9miz4iarXq0WqCnWX UaacYxnLowVMJ4n3Yx Lz48 M93zZLvmHMBeJEAiSJ OhMGEkqCktlg1alZ8y Ii8+ZP4av7zspu18cO 48dHI+KIIiIIA4fTlv PSdw TCGnpA6hDSvgUfP9LG WhCoIblH25zORoUZqh Wh8urVfjoZooLV7nYV Arrajtj899SdBfp2um IDEw cHOtKAqaEYG9S02zb1 D7TWXpGNJuXBA3pTW7 nJ6dtUtlggjeyTLzvB sgdmVydGljYWwtYWxp Z246 IHRvcDsnPlBhdGllbn YjZiHeRLl5X4QwYjw8 BUJbaGjsSI1gcILnLQ avEk8hgRbkoAzoVA3r NTBp qtjkp991MvAux2tcJW RreABnMZilUUK4P61r p4X4PERtYWAcGSY3kJ Z4kL0llLnqoetosVUg dDsg dmVydGljYWwtYWxpZ2 46IHRvcDsnPkJpcnRo VFAjoSU5NR41XB43fV Lru3L9vZN7I0ZlAZJh bmct yshhqKS3UQPfRPYbbG 53Eh9suJtxOy8oUZSf DWX8GUHwkZBvK9ZqxT 3tAgKhOYIhAMUgR2Rc eHQt OZqmA079AIdfBcI4QW TkwrIrS8AtTWRcxQdj XgP2q6G5Mn4TG0I6JK 64JV20mFFxx1C5nLU2 J3Bh VZKqndeonxncoBY0RL KgVJPtbJ36Fp7inGec Ju1zCKOkLWW5NIUnpE XtJ3HkaL8uEbGhXYYd MDAw K5QxmYCwPEazM400UI fcEdL9QUDrhpTpU6Dt ACEijMohXlD6l5H0Jf 0KJTz0WG33YG23qJCr c3R5 dLD1U9BpGYBqgmctxa lctTZ4JDTxQAKnlL91 Ox9nsRewYa3eLARbZB G0LWRlrOSqV4KonB9p OiAj FTQdMIIbC4PilWIoYT arL859NZsiXxY9EAAx xkGbZ8ZqHUTpcBuwPf S8y9R7Ns0NQIAvKI26 IFR5 vGY1ZX55LZ08V7HvMd wvdGFibGU+PHRhYmxl IHdpZHRoPScxMDAlJy GrrWniLE0lMx8jLNCc LWNv pAehoITvKqTih7mzBB SeBKhmJQ2jeFciZ1Iz nKM9ODVuk9s7Mz03G7 1sN6EwsOC+PGNvbCB3 aWR0 pN0rZmWtDoU8WLefK1 96BvUunYDwJiyzi6ns y6epqYw3DlV8TKMtyy DjbHbjCNG1i9OfTz41 Y29s IHdpZHRoPSIxNSUiIH JviNfjrk1ecL9pBq4+ CIPpdHN1pPW5bX9kIx EsTiE6KPdgN460JfYi cCIv Szudx5wdb8rkxRo9Ym IwJSIgdmFsaWduPSJ0 p8PrUd76E9CccVjhc2 LaShn1pc86uNFyl2Y7 bGU9 T1SrXALlmcgcgOKaeH bwWP1pRMIgthibTJZs hM6tYHMiQ0u6UvEmZj Z4QZkmB8JhkeV2GGJj cHQg REizCXY2B65gh8C6KF VtWZLeKGO5tBR9aX1a bGlnbjogbGVmdDsgdm CgeXuiICgfXUccL770 IHRv oDswBMYouT0nFITuiO StnTifCD1uFLOjcxoq DgUAQbUQHumfOS6JXU JGKHL9R8UwCma1PLNp dHls GA7yaGYoPTuzUr3ouH eslIivVF2sTNItivqn FJEkeO0cBGYiuXEylW byAN4qGYCocsroo922 OiAx ESD8PHCpeLLrM7UxsX 5dXgLyQVWaFFNmI6If hLKcJGfjL418PLmbGu I5XIRhotOvI0UeTNIw aWdu GrA4g1T5Kc4nGt7qZm 6pFGhvDI81PK81gXAf u9S1oVX9T9NpTPQtib jverrlwIN6MEXgCNLy aW47 wRAdNTmcAf5iz7Q0f6 33PGSaXAZscM14Hb7l wCohRCRrvNQHvM8ppp bfh2fygxcgCgEgVMQf MDt0 NOz2ITJtsCwpIeFoUK H5JhB1LBP8zUFbqL4o dTjehgehnP3yTha+Mz JsJBTlanV0A9GcSjo6 ZCBz vFirON6daKQbJXmfFd 2taOstjUgrWN5bKWUy elghUGAstL7wEKGtkB IivCtmCR5oAUByvfyo b250 MvMpTUO0LUGewPGdY4 ZgsI7pFcWvXFVwDSSg Y1UopHDdFGikR748RF gjMtG7PBIdcxSdM1Gs LWFs uFzrSmM3y4D0Oj3PHG 2IEQJ9Y9IbWdm5VNKh tMciSX6rtVImZAbkKe 9dtGtohDcgKU4xDVMa bjtw AGKdmH3kHXJspPWzzP ilJC3yDCBhjerhw891 KxToRKS4KNJnvZVxU0 IiwD2oSjZcWLFfHIUo O3Rl xBTkPKbpW099BHhiNq B4TMRkfhIsE3IaYLAk wQvjLxB9o0P8Bg8QKY wvdGQ+DB29ps74C5Qf Ymxl Qqu7OHYzUFM3zQX4sL 5cPXOzGJcug6J8oWI7 U7TicoUunu0gk6ffPX HhUXdjW81rbIHph1L1 IGVt jAL9QETsuNjsYqJwrS 93Oyc+ALDshRkil9Cv Fjymc3tid9ygmYm1Ii MwJSIgdmFsaWduPSJ0 b3Ai Kf87J52lINwwOQDwZP NgQROlESQapYmwgi9y yT1oQr4+FMPlnVL6wK G3kV5aRiArHjC7UYtm Z249 ArUdsPHvVcacd2vwt4 nysAr1AoMpZMVrsiEz qNqeFDP4y6PyNo17B5 GhfLdfn2HiUut1kq89 dGQg a6D9sTI6I1TpLQQqjz lraOEopHcxGI5xIUGa fyddBEZhoT2zWHXtC3 h9ChCuIlM0BPvlX2Ha bnQ6 IGJvbGQgMTBwdCBUaW 6ynvbor7qgzzcuBdMz TYJaUNv3KZy2GBJhvL maKvCkSYP8XaJ1MKY5 aWNh dQ7qbNykfkqzyM3xTy c+XWe5c9vuqTVfWO1j hJH6IB17BK12bAJin8 Q9qKV7B3FqIILrqfah cmln cNP4RFNwWAPtbY66Ue 0iqVkwOo9yVVJhDCA6 MBJwaSHdS3YfzD1pXf FqHZRpOGZsG5CdpSGb YWxp H051LWtlFtU7DKBaqy SrI5MpXBXwePmaUxF9 d7N8Jr8VNX02NN45WR 48nZRdp3F5lQU9P1Gx ZGRp ematvhqtoJP4NLZdUF AmlJ80Or4zaEkbRi0z EIDdKUF7OIEjzYFcK8 YskC7pHpYsUEXvUERw O3Rl zZNzCJdgZ645EKjwYk Y8DWXngnWxE8KyTZDy zKykWfC3n1U6Vl8AKn 94WY05GG78cFZmp5U8 bGU9 I1UaQJNobtssleiipG G8RCTmQDZhcX23Wh2d yZpdEk2sUTTqWFZ7CD MvbMOsS4DkaJ1qZfXu MDAw UJMgI3LviWRnDAaaQ6 71TLnwYdX7AGDvutEj X4CeISUpaSjdZgV0c9 J4Zc2BYVyeync3J1Kz Pjwv dHI+XD20CVHaOY32wP HvoXNji1jyvXn8SmQx PYJyFXD9xSpdGKjvz5 IiGRDuA93nfPIxx2F9 IGNv bGx (more content not included)... [facility] Consent Formson 04-01-2021 Consent Forms [id number] Provider Orders [id number] Testing[facility] 2021 Result Positive [employer] Other HERPES SIMPLEX VIRUS 1/2 DNA PCRon 11-11-2020 HSV-1 DNA Negative Normal Negative [facility] Comment on above: Performed By: #### C BC #### [facility] [address] [place] [address] Sunshine Carlos HSV-2 DNA Positive Abnormal Negative The [facility] Comment on above: Result Comment: This test was developed and its performance characteristics determined by [employer]. It has not been cleared or approved by the [place] Food and Drug Administration. The FDA has determined that such clearance or approval is not necessary. This test is used for clinical purposes. It should not be regarded as investigational or research. Performed By: #### C BC #### [facility] [address] [place], [place] [id number] Sunshine Carlos CULTURE URINEon 11-10-2020 CULTURE URINE [...] F Tetracycline <=0.25 S F Normal The [facility] Comment on above: Performed By: #### C BC #### [facility] [address] [place] [address] Sunshine Carlos CHLAMYDIA/GONOCOCCUS TINA (SW AB/URINE/PAPon 11-09-2020 Chlamydia trachomatis, TINA Negative Normal Negative The [facility] Comment on above: Performed By: #### C T/NGNA #### [facility] [address] [place] [address] Sunshine Carlos Neisseria gonorrhoeae, TINA Negative Normal Negative The [facility] Comment on above: Performed By: #### C T/NGNA #### [facility] [address] [place] [address] Sunshine Carlos Covid-19 PCR (CVDTB)on 10-18 SARS-CoV-2 (COVID-19) RNA TINA+probe Ql (Unsp spec) Not detected Normal NOT DETECTED The [facility] Comment on above: Result Comment: This test is not yet approved or cleared by the [place] FDA. When there are no FDA-approved or cleared tests available, and other criteria are met, FDA can make tests available under an emergency access mechanism called an Emergency Use Authorization (EUA). The EUA for this test is supported by the [place] of Health and Human Service's (HHS's) declaration [...] Performed By: #### C VDAGS, CVDTBH #### [facility] [address] [place] [address] Sunshine Breanna ER URINE PROFILEon 1 Bilirubin Ql (U) Negative Normal NEGATIVE [facility] Comment on above: Performed By: #### C BC #### [facility] [address] [place] [address] Sunshine Breanna Clarity (U) CLEAR Normal CLEAR [facility] Comment on above: Performed By: #### C BC #### [facility] [address] [place] [address] Sunshine Breanna Color (U) LT. YELLOW Normal YELLOW [facility] Comment on above: Performed By: #### C BC #### [facility] [address] [place] [address] Sunshine Breanna ERUAHD A micrscopic examination will be performed if indicated. Normal The The [facility] Comment on above: Performed By: #### C BC #### [facility] [address] [place] [address] Sunshine Breanna Glucose Ql (U) Negative Normal NEGATIVE The [facility] Comment on above: Performed By: #### C BC #### [facility] [address] [place] [address] Sunshine Breanna Hemoglobin Ql (U) LARGE Abnormal NEGATIVE The [facility] Comment on above: Performed By: #### C BC #### [facility] [address] [place] [address] Sunshine Breanna Ketones Ql (U) Negative Normal NEGATIVE The [facility] Comment on above: Performed By: #### C BC #### [facility] [address] [place] [address] Sunshine Breanna LEUKOCYTES Negative Normal NEGATIVE [facility] Comment on above: Performed By: #### C BC #### [facility] [address] [place] [address] Sunshine Carlos Nitrite Ql (U) Negative Normal NEGATIVE The [facility] Comment on above: Performed By: #### C BC #### [facility] [address] [place], [place] [id number] Sunshine Carlos pH (U) 5.5 [pH] Normal 5-9 The [facility] Comment on above: Performed By: #### C BC #### [facility] [address] [place] [address] Sunshine Carlos SPEC GRAVITY >=1.030 Abnormal 1.005-<=1.02 5 [facility] Comment on above: Performed By: #### C BC #### [facility] [address] [place] [address] Sunshine Carlos UA PROTEIN Negative Normal NEGATIVE/ TRACE The [facility] Comment on above: Performed By: #### C BC #### [facility] [address] [place] [address] Sunshine Carlos UR MICRO IND INDICATED Normal The [facility] Comment on above: Performed By: #### C BC #### [facility] [address] [place] [address] Sunshine Carlos Urobilinogen Qn (U) 0.2 {Braden'U}/dL Normal 0.2 - 1. 0 [facility] Comment on above: Performed By: #### C BC #### [facility] [address] [place] [address] Sunshine Carlos URon 11-08-2020 , QUAL Negative Normal NEGATIVE The [facility] Comment on above: Performed By: #### C BC #### [facility] [address] [place], [place] [id number] Sunshine Carlos STREPT SCREENon 11-08-2020 STREP SCREEN A Positive Abnormal NEGATIVE The [facility] Comment on above: Performed By: #### C BC #### [facility] [address] [place] [address] Sunshine Carlso SYMPTOMATIC COVID-19 ANTIGEN on 11-08-2020 EUA Statement SEE BELOW Normal The [facility] Comment on above: Result Comment: This [...] Performed By: #### C IVELISSE, CVDTB #### [facility] [address] [place] [address] Sunshine Carlos SARS-CoV-2 (COVID-19) RNA TINA+probe Ql (Unsp spec) Negative Normal NEGATIVE The [facility] Comment on above: Result Comment: CONF IRMATION BY PCR PENDING PER CDC GUIDELINES/ SYMPTOMATIC PATIENT. Performed By: #### C IVELISSE, CVDTB #### [facility] [address] [place] [address] Sunshine Breanna URINE MICROSCOPIC ONLYon AMORPHOUS CRYSTALS FEW Normal The [facility] Comment on above: Performed By: #### C BC #### [facility] [address] [place] [address] Sunshienvinita Carlos BACTERIA SMALL Abnormal NONE SEEN The [facility] Comment on above: Performed By: #### C BC #### [facility] [address] [place] [address] Sunshine Breanna Bacteria identified Cx Nom (U) INDICATED Normal The [facility] Comment on above: Performed By: #### C BC #### [facility] [address] [place] [address] Sunshine Breanna CAST NONE SEEN Normal NONE SEEN The [facility] Comment on above: Performed By: #### C BC #### [facility] [address] [place] [address] Sunshine Breanna Crystals LM Nom (Urine sed) SEEN Abnormal NONE SEEN The [facility] Comment on above: Performed By: #### C BC #### [facility] [address] [place], [place] [address] Sunshine Carlos Epithelial cells LM Ql (Urine sed) MODERATE Abnormal NONE SEEN /RARE The [facility] Comment on above: Performed By: #### C BC #### [facility] [address] [place], [place] [address] Sunshine Breanna MUCOUS MODERATE Abnormal NONE SEEN The [facility] Comment on above: Performed By: #### C BC #### [facility] [address] [place] [address] Sunshine Breanna RBC 2-5 Abnormal 0-2 The [facility] Comment on above: Performed By: #### C BC #### [facility] [address] [place] [address] Sunshine Breanna WBC 5-10 Abnormal NONE SEEN The [facility] Comment on above: Performed By: #### C BC #### [facility] [address] [place], [place] [address] Sunshinevinita Gonzalezen US SINGLE QUAD RT UPPERon [...] EDMUNDO GUZMAN Date: 2020-08-19 15:23 Normal The [facility] AMYLASEon 08-17-2020 Amylase [Catalytic activity/Vol] 49 U/L Normal 31-110 The [facility] Comment on above: Performed By: #### C BC #### [facility] [address] [place], [place] [address] Sunshine Breanna CBC AUTO DIFFon 08-17-2020 BASO # 0.0 103/ul Normal 0.0-0.1 [facility] Comment on above: Performed By: #### C BC #### [facility] [address] [place], [place] [address] Sunshine Breanna Basophils/100 WBC (Bld) 0.6 % Normal 0.2-2.0 [facility] Comment on above: Performed By: #### C BC #### [facility] [address] [place], [place] [address] Sunshine Breanna EO # 0.1 103/ul Normal 0.0-0.7 [facility] Comment on above: Performed By: #### C BC #### [facility] [address] [place], [place] [address] Sunshine Breanna Eosinophils/100 WBC (Bld) 1.3 % Normal 0.9-7.0 [facility] Comment on above: Performed By: #### C BC #### [facility] [address] [place], [place] [address] Sunshine Breanna Erythrocyte distribution width (RBC) [Ratio] 13.0 % Normal 11.0-15.0 [facility] Comment on above: Performed By: #### C BC #### [facility] [address] [place], [place] [address] Sunshine Breanna Hematocrit (Bld) [Volume fraction] 39.1 % Normal 36.0-48.0 [facility] Comment on above: Performed By: #### C BC #### [facility] [address] [place], [place] [address] Sunshine Breanna Hemoglobin (Bld) [Mass/Vol] 13.2 g/dL Normal 12.0-16.0 [facility] Comment on above: Performed By: #### C BC #### [facility] [address] [place] [address] Sunshine Breanna IG # 0.01 10e3/ul Normal 0.00-0.03 [facility] Comment on above: Performed By: #### C BC #### [facility] [address] [place] [address] Sunshine Breanna IG % 0.1 % Normal 0.0-0.5 [facility] Comment on above: Performed By: #### C BC #### [facility] [address] [place] [address] Sunshine Breanna LYMPH # 2.4 103/ul Normal 1.2-3.8 [facility] Comment on above: Performed By: #### C BC #### [facility] [address] [place] [address] Sunshine Breanna Lymphocytes/100 WBC (Bld) 33.5 % Normal 20.5-60.0 [facility] Comment on above: Performed By: #### C BC #### [facility] [address] [place] [address] Sunshine Breanna MANUAL DIFF REQ NO Normal [facility] Comment on above: Performed By: #### C BC #### [facility] [address] [place] [address] Sunshine Breanna MCH (RBC) [Entitic mass] 30.6 pg Normal 26.7-34.0 [facility] Comment on above: Performed By: #### C BC #### [facility] [address] [place] [address] Sunshine Breanna MCHC (RBC) [Mass/Vol] 33.8 g/dL Normal 29.9-35.2 [facility] Comment on above: Performed By: #### C BC #### [facility] [address] [place] [address] Sunshine Breanna MCV (RBC) [Entitic vol] 90.7 fL Normal 81.0-99.0 [facility] Comment on above: Performed By: #### C BC #### [facility] [address] [place] [address] Sunshine Breanna MONO # 0.3 103/ul Normal 0.3-0.8 [facility] Comment on above: Performed By: #### C BC #### [facility] [address] [place], [place] [address] Sunshine Carlos Monocytes/100 WBC (Bld) 4.1 % Normal 1.7-12.0 [facility] Comment on above: Performed By: #### C BC #### [facility] [address] [place] [address] Sunshinevinita Gonzalezen NEUT # 4.2 103/ul Normal 1.4-6.5 [facility] Comment on above: Performed By: #### C BC #### [facility] [address] [place] [address] Sunshine Carlos Neutrophils/100 WBC (Bld) 60.4 % Normal 43.0-75.0 [facility] Comment on above: Performed By: #### C BC #### [facility] [address] [place] [address] Sunshine Carlos Platelet mean volume (Bld) [Entitic vol] 10.7 fL Normal 9.5-13.5 [facility] Comment on above: Performed By: #### C BC #### [facility] [address] [place] [address] Sunshine Gonzalezen PLT 321 103/ul Normal 150-450 The [facility] Comment on above: Performed By: #### C BC #### [facility] [address] [place] [address] Sunshinevinita Gonzalezen RBC 4.31 106/ul Normal 4.20-5.40 [facility] Comment on above: Performed By: #### C BC #### [facility] [address] [place], [place] [address] Sunshine Breanna WBC 7.0 103/ul Normal 4.0-11.0 [facility] Comment on above: Performed By: #### C BC #### [facility] [address] [place] [address] Sunshine Carlos LIPASEon 08-17-2020 Lipase [Catalytic activity/Vol] 97.0 U/L Normal 23.0-300.0 [facility] Comment on above: Performed By: #### T CANDE, CMP, LIPA, JANINE #### [facility] [address] [id number] Sunshinevinita Gonzalezen PROF 14(COMP METB)on 021 Albumin [Mass/Vol] 3.5 g/dL Normal 3.5-5.0 [facility] Comment on above: Performed By: #### T CANDE, CMP, LIPA, JANINE #### [facility] [address] [place] [address] Sunshine Breanna Albumin/Globulin [Mass ratio] 0.8 {ratio} Normal [facility] Comment on above: Performed By: #### T CANDE, CMP, LIPA, JANINE #### [facility] [address] [place] [address] Sunshine Breanna ALP [Catalytic activity/Vol] 64 U/L Normal 38-126 The [facility] Comment on above: Performed By: #### T CANDE, CMP, LIPA, JANINE #### [facility] [address] [place] [address] Sunshine Breanna ALT [Catalytic activity/Vol] 12 U/L Normal 9-52 [facility] Comment on above: Performed By: #### T CANDE, CMP, LIPA, JANINE #### [facility] [address] [address] Sunshine Breanna Anion gap [Moles/Vol] 14.9 mmol/L Normal [facility] Comment on above: Performed By: #### T CANDE, CMP, LIPA, JANINE #### [facility] [address] [address] Sunshine Breanna AST [Catalytic activity/Vol] 9 U/L Critically low 14-36 The [facility] Comment on above: Performed By: #### T CANDE, CMP, LIPA, JANINE #### [facility] [address] [address] Sunshine Breanna Bilirubin [Mass/Vol] 0.2 mg/dL Normal 0.2-1.3 The [facility] Comment on above: Performed By: #### T CANDE, CMP, LIPA, JANINE #### [facility] [address] [place] [address] Sunshine Breanna Calcium [Mass/Vol] 8.9 mg/dL Normal 8.4-10.2 The [facility] Comment on above: Performed By: #### T CANDE, CMP, LIPA, JANINE #### [facility] [address] [place] [address] Sunshine Breanna Chloride [Moles/Vol] 108 mmol/L Critically high 98-107 The [facility] Comment on above: Performed By: #### T CANDE, CMP, LIPA, JANINE #### [facility] [address] [place] [address] Sunshine Breanna CO2 [Moles/Vol] 23.8 mmol/L Normal 22.0-30.0 The [facility] Comment on above: Performed By: #### T CANDE, CMP, LIPA, JANINE #### [facility] [address] [place] [address] Sunshine Breanna Creatinine [Mass/Vol] 0.81 mg/dL Normal 0.52-1.04 [facility] Comment on above: Performed By: #### T CANDE, CMP, LIPA, JANINE #### [facility] [address] [place] [address] Sunshine Breanna EGFR-AF BOLIVIAN >60 Normal >=60 The [facility] Comment on above: Performed By: #### T CANDE, CMP, LIPA, JANINE #### [facility] [address] [place] [address] Sunshine Breanna EGFR-NON AF BOLIVIAN >60 Normal >=60 [facility] Comment on above: Performed By: #### T CANDE, CMP, LIPA, JANINE #### [facility] [address] [place] [address] Sunshine Breanna Globulin (S) [Mass/Vol] 4.4 g/dL Normal [facility] Comment on above: Performed By: #### T CANDE, CMP, LIPA, JANINE #### [facility] [address] [place] [address] Sunshine Breanna Glucose [Mass/Vol] 92 mg/dL Normal 74-106 The [facility] Comment on above: Performed By: #### T CANDE, CMP, LIPA, JANINE #### [facility] [address] [place] [address] Sunshine Breanna Potassium [Moles/Vol] 3.7 mmol/L Normal 3.4-5.0 The [facility] Comment on above: Performed By: #### T CANDE, CMP, LIPA, JANINE #### [facility] [address] [place] [address] Sunshine Breanna Protein [Mass/Vol] 7.9 g/dL Normal 6.1-8.2 The [facility] Comment on above: Performed By: #### T CANDE, CMP, LIPA, JANINE #### [facility] [address] [place] [address] Sunshine Breanna Sodium [Moles/Vol] 143 mmol/L Normal 137-145 The [facility] Comment on above: Performed By: #### T CANDE, CMP, LIPA, JANINE #### [facility] [address] [place] [address] Sunshine Breanna Urea nitrogen [Mass/Vol] 14.0 mg/dL Normal 7.0-17.0 The [facility] Comment on above: Performed By: #### T CANDE, CMP, LIPA, JANINE #### [facility] [address] [place] [address] Sunshine Breanna Urea nitrogen/Creatinine [Mass ratio] 17.3 mg/mg Normal The [facility] Comment on above: Performed By: #### T CANDE, CMP, LIPA, JANINE #### [facility] [address] [place] [address] Sunshine Breanna PREG QUANT HCGon 06-02-2020 HCG QUANT 14 mIU/mL Normal The [facility] Comment on above: Performed By: #### C VDAGS, CVDTBH #### [facility] [address] [place] [address] Sunshine Breanna HCG RANGE SEE BELOW Normal The [facility] Comment on above: Result Comment: 5-50 0-1 WEEK 40-300 1-2 WEEKS 100-1,000 2-3 WEEKS 500-6,000 3-4 WEEKS 5,000-200,000 1-2 MONTHS 10,000-100,000 2-3 MONTHS 3,000-50,000 2ND TRIMESTER 1,000-50,000 3RD TRIMESTER Performed By: #### C VDAGS, CVDTB #### [facility] [address] [address] Sunshine Breanna PREG QUANT HCGon 05-20-2020 HCG QUANT 13 mIU/mL Normal The [facility] Comment on above: Performed By: #### C BC #### [facility] [address] [address] Sunshine Breanna HCG RANGE SEE BELOW Normal The [facility] Comment on above: Result Comment: 5-50 0-1 WEEK 40-300 1-2 WEEKS 100-1,000 2-3 WEEKS 500-6,000 3-4 WEEKS 5,000-200,000 1-2 MONTHS 10,000-100,000 2-3 MONTHS 3,000-50,000 2ND TRIMESTER 1,000-50,000 3RD TRIMESTER Performed By: #### C BC #### [facility] [address] [place] [address] Sunshine Breanna PREG QUANT HCGon 05-06-2020 HCG QUANT 20 mIU/mL Normal The [facility] Comment on above: Performed By: #### P REGQNT #### [facility] [address] [place], [place] [address] Sunshine Breanna HCG RANGE SEE BELOW Normal The [facility] Comment on above: Result Comment: 5-50 0-1 WEEK 40-300 1-2 WEEKS 100-1,000 2-3 WEEKS 500-6,000 3-4 WEEKS 5,000-200,000 1-2 MONTHS 10,000-100,000 2-3 MONTHS 3,000-50,000 2ND TRIMESTER 1,000-50,000 3RD TRIMESTER Performed By: #### P REGQNT #### [facility] [address] [place] [address] Sunshine Breanna PREG QUANT HCGon 04-29-2020 HCG QUANT 21 mIU/mL Normal The [facility] Comment on above: Performed By: #### P REGQNT #### [facility] [address] [place] [address] Sunshine Breanna HCG RANGE SEE BELOW Normal [facility] Comment on above: Result Comment: 5-50 0-1 WEEK 40-300 1-2 WEEKS 100-1,000 2-3 WEEKS 500-6,000 3-4 WEEKS 5,000-200,000 1-2 MONTHS 10,000-100,000 2-3 MONTHS 3,000-50,000 2ND TRIMESTER 1,000-50,000 3RD TRIMESTER Performed By: #### P REGQNT #### [facility] [address] [place] [address] Sunshine Breanna ABO AND RH TYPEon 04-22-2020 ABO and Rh group Nom (Bld) ABO Rh Typing O Rh Positive Normal [facility] Comment on above: Performed By: #### C BC #### [facility] [address] [place] [address] Sunshine Breanna PREG QUANT HCGon 04-22-2020 HCG QUANT 37 mIU/mL Normal [facility] Comment on above: Performed By: #### P REGQNT #### [facility] [address] [place] [address] Sunshine Breanna HCG RANGE SEE BELOW Normal [facility] Comment on above: Result Comment: 5-50 0-1 WEEK 40-300 1-2 WEEKS 100-1,000 2-3 WEEKS 500-6,000 3-4 WEEKS 5,000-200,000 1-2 MONTHS 10,000-100,000 2-3 MONTHS 3,000-50,000 2ND TRIMESTER 1,000-50,000 3RD TRIMESTER Performed By: #### P REGQNT #### [facility] [address] [place], [place] [address] Sunshine Breanna ED Note-Physicianon 10-16-19 20 ED Note-Physician [id number] 0EC#[id number]:[id number] Normal [facility] Chlam and gonorrhea: Amp, Ur ine -UHEon 01-12-2017 Chlam and gonorrhea: Amp, Urine -UHE Negative Negative THIS TEST WAS PERFORMED USING A REAL TIME PCR ASSAY. Normal [facility] Comment on above: Performed By: #### R NABU ####[address] [address] Beta HCG (Qual), Urine - MCH on 01-09-2017 HCG.beta subunit ( test) Ql (U) Positive Abnormal Negative [facility] Comment on above: Performed By: #### H CGUMD, UR1MD ####[facility] [place], [place] [address] Beta HCG, quant, S - MCHon 1 Beta HCG, quant, S - MCH 92763.0 mIU/mL Normal [facility] Comment on above: Result Comment: FEMA LE GESTATIONAL AGERESULTS <10 ARE CONSIDERED NEGATIVE4 WEEKS 4700-124834 mIU/mL5 WEEKS 3660-927918 mIU/mL6 WEEKS 76303-786262 mIU/mL7 WEEKS 54713-737235 mIU/mL8 WEEKS 75086-979561 mIU/mL9 WEEKS 38673-398816 mIU/mL10 WEEKS 87585-793279 mIU/mL11 WEEKS 6480-041227 mIU/ml12 WEEKS 6740-272999 mIU/mL13-27 WEEKS 8200-802039 mIU/mL28-40 WEEKS 2320-70121 mIU/mL Performed By: #### C BCMD, PTPTMD, TYSCMD, QHCGMD ####[address] [place], [place] [address] CBC, ELECTRONIC DIFF, PLATEL ET - MCHon 01-09-2017 Absolute Basophil 0.0 K/uL Normal 0.0-0.23 [facility] Comment on above: Performed By: #### C BCMD, PTPTMD, TYSCMD, QHCGMD ####[address] [place], [place] [address] Absolute Grans 5.9 K/uL Normal 1.8-7.7 [facility] Comment on above: Performed By: #### C BCMD, PTPTMD, TYSCMD, QHCGMD ####[address] [place], [place] [address] Basophils/100 WBC Auto (Bld) 0.5 % Normal 0-2 [facility] Comment on above: Performed By: #### C BCMD, PTPTMD, TYSCMD, QHCGMD ####[address] [place], [place] [address] Eosinophils 0.1 10*3/uL Normal 0.0-0.7 [facility] Comment on above: Performed By: #### C BCMD, PTPTMD, TYSCMD, QHCGMD ####[address] [address] Eosinophils/100 leukocytes 1.0 % Normal 0-5.0 [facility] Comment on above: Performed By: #### C BCMD, PTPTMD, TYSCMD, QHCGMD ####[address] [address] Erythrocytes (RBC) 13.8 % Normal 11.5-14.5 [facility] Comment on above: Performed By: #### C BCMD, PTPTMD, TYSCMD, QHCGMD ####[address] [address] [employer] 64.6 % Normal 50-70 [facility] Comment on above: Performed By: #### C BCMD, PTPTMD, TYSCMD, QHCGMD ####[address] [address] Hematocrit (HCT) 34.5 % Low 35.0-45.0 [facility] Comment on above: Performed By: #### C BCMD, PTPTMD, TYSCMD, QHCGMD ####[address] [address] Hemoglobin mass conc (Bld) 31.0 pg Normal 27.0-34.0 [facility] Comment on above: Performed By: #### C BCMD, PTPTMD, TYSCMD, QHCGMD ####[address] [address] Hemoglobin mass conc (Bld) 11.7 g/dL Normal 11.7-15.5 [facility] Comment on above: Performed By: #### C BCMD, PTPTMD, TYSCMD, QHCGMD ####[address] [address] Lymphocytes 2.6 10*3/uL Normal 1.0-4.8 [facility] Comment on above: Performed By: #### C BCMD, PTPTMD, TYSCMD, QHCGMD ####[address] [place], [place] [address] Lymphocytes/100 leukocytes 28.7 % Normal 22.0-44.0 [facility] Comment on above: Performed By: #### C BCMD, PTPTMD, TYSCMD, QHCGMD ####[address] [place], [place] [address] MCH 3.78 M/uL Low 3.8-5.1 [facility] Comment on above: Performed By: #### C BCMD, PTPTMD, TYSCMD, QHCGMD ####[address] [address] MCH 9.1 K/uL Normal 4.5-11.0 [facility] Comment on above: Performed By: #### C BCMD, PTPTMD, TYSCMD, QHCGMD ####[address] [address] MCV 91.0 fL Normal 81.0-100.0 [facility] Comment on above: Performed By: #### C BCMD, PTPTMD, TYSCMD, QHCGMD ####[address] [address] Monocytes 0.5 10*3/uL Normal 0.0-0.9 [facility] Comment on above: Performed By: #### C BCMD, PTPTMD, TYSCMD, QHCGMD ####[address] [address] Monocytes/100 leukocytes 5.2 % Normal 0-7.0 [facility] Comment on above: Performed By: #### C BCMD, PTPTMD, TYSCMD, QHCGMD ####[address] [address] Platelet mean volume (PMV) 8.3 fL Normal 7.5-11.2 [facility] Comment on above: Performed By: #### C BCMD, PTPTMD, TYSCMD, QHCGMD ####[address] [address] Platelets 281 10*3/uL Normal 150-400 [facility] Comment on above: Performed By: #### C BCMD, PTPTMD, TYSCMD, QHCGMD ####[facility] [place], [place] [address] ED PROVIDERon 01-09-2017 [facility] NOTES Normal [facility] OSUHIMCACCODINGOPEDon 2016 [facility] Coding OP/ED Report Normal [facility] OSUHIMCACENCSUMon 01-09-2017 [facility] Encounter Summary Report Normal [facility] PT[facility]2017 aPTT 33 s Normal 24.6-35.9 [facility] Comment on above: Performed By: #### C BCMD, PTPTMD, TYSCMD, QHCGMD ####[facility], [place] [address] INR Coag RelTime (Bld) 1.1 {INR} Normal 0.87-1.[address] [facility] Comment on above: Performed By: #### C BCMD, PTPTMD, TYSCMD, QHCGMD ####[place] [id number] [place] [address] MCH 13.3 sec Normal 11.5-14.3 [facility] Comment on above: Performed By: #### C BCMD, PTPTMD, TYSCMD, QHCGMD ####[place] [address] [place], [place] [address] TYPE AND SCREEN - [facility] ABO/RH(D) - MCH: O POSITIVE ANTIBODY SCREEN - MCH: Negative Normal [facility] Comment on above: Performed By: #### C BCMD, PTPTMD, TYSCMD, QHCGMD ####[facility] [place], [place] [address] Urinalysis reflex to Cult [facility]2017 COMMENT URINE None Normal [facility] Comment on above: Performed By: #### H CGUMD, UR1MD ####[facility] [place], [place] [address] Squamous Epithelial 2+ /HPF Normal [facility] Comment on above: Performed By: #### H CGUMD, UR1MD ####[facility] [facility] [place] [address] Urine, bacteria in sediment Absent Normal Absent [facility] Comment on above: Performed By: #### H CGUMD, UR1MD ####[place] [address] [facility] [place] [address] Urine, erythrocytes in sediment by area 0-2 Normal 0-2 [facility] Comment on above: Performed By: #### H CGUMD, UR1MD ####[place] [address] [facility] [place] [address] Urine, leukocytes in sedmiment 0-5 Normal 0-5 [facility] Comment on above: Performed By: #### H CGUMD, UR1MD ####[place] [address] [place], [place] [address] Bilirubin Urine Negative Normal Negative [facility] Comment on above: Performed By: #### H CGUMD, UR1MD ####[place] [address] [place], [place] [address] Blood Urine Moderate Abnormal Negative [facility] Comment on above: Performed By: #### H CGUMD, UR1MD ####[place] [address] [place], [place] [address] Nitrites Urine Negative Normal Negative [facility] Comment on above: Performed By: #### H CGUMD, UR1MD ####[place] [address] [place], [place] [address] Protein Urine Negative Normal Negative [facility] Comment on above: Performed By: #### H CGUMD, UR1MD ####[place] [address] [place], [place] [address] Specific Crumrod urine 1.020 Normal 1.001-1.035 [facility] Comment on above: Performed By: #### H CGUMD, UR1MD ####[place] [address] [place], [place] [address] Urine, appearance Clear Normal Clear [facility] Comment on above: Performed By: #### H CGUMD, UR1MD ####[place] [address] [facility], [place] [address] Urine, color Yellow Normal YEL,DKYEL [facility] Comment on above: Performed By: #### H CGUMD, UR1MD ####[place] [address] [place], [place] [address] Urine, glucose presence Negative Normal Negative [facility] Comment on above: Performed By: #### H CGUMD, UR1MD ####[place] [address] [place], [place] [address] Urine, ketones presence Negative Normal Negative [facility] Comment on above: Performed By: #### H CGUMD, UR1MD ####[place] [address] [place], [place] [address] Urine, leukocyte esterase presence Negative Normal Negative [facility] Comment on above: Performed By: #### H CGUMD, UR1MD ####[place] [address] [place], [place] [address] Urine, pH 6.0 [pH] Normal 5.0-7.0 [facility] Comment on above: Performed By: #### H CGUMD, UR1MD ####[place] [address] [place], [place] [address] Urobilinogen urine 0.2 EU/dL Normal <2.0 [facility] Comment on above: Performed By: #### H CGUMD, UR1MD ####[place] [address] [place], [place] [address] Vital Signs Date Time Vital Sign Value Performing Clinician Facility 01-15-2024 14:52-0400 Body mass index (BMI) [Ratio] 36.64 kg/m2 Janine SEVILLA Work Phone: [facility] 01-15-2024 14:52-0400 Body weight 109.32 kg Janine SEVILLA Work Phone: [facility] 01-15-2024 14:52-0400 Diastolic blood pressure 74 mm[Hg] Janine SEVILLA Work Phone: [facility] 01-15-2024 14:52-0400 Systolic blood pressure 118 mm[Hg] Janine SEVILLA Work Phone: [facility] 01-01-2024 13:26-0400 Body mass index (BMI) [Ratio] 35.88 kg/m2 Janine SEVILLA Work Phone: [facility] 01-01-2024 13:26-0400 Body weight 107.05 kg Janine SEVILLA Work Phone: [facility] 01-01-2024 13:26-0400 Diastolic blood pressure 76 mm[Hg] Janine SEVILLA Work Phone: [facility] 01-01-2024 13:26-0400 Systolic blood pressure 118 mm[Hg] Janine Brunswick PA Work Phone: [facility] 12-18-2023 15:06-0400 Body mass index (BMI) [Ratio] 35.54 kg/m2 Dmitriy Rodo DO Work Phone: [facility] 12-18-2023 15:06-0400 Body weight 106.03 kg Dmitriy Rodo DO Work Phone: [facility] 12-18-2023 15:06-0400 Diastolic blood pressure 68 mm[Hg] Dmitriy Rodo DO Work Phone: [facility] 12-18-2023 15:06-0400 Systolic blood pressure 108 mm[Hg] Dmitriy Rodo DO Work Phone: [facility] [employer] 03-29-2021 11:15-0500 Body height 172.72 cm Arminda Holt Other [employer] Other 03-29-2021 11:15-0500 Body mass index (BMI) [Ratio] 36.49 kg/m2 Arminda Holt Other [employer] Other 03-29-2021 11:15-0500 Body temperature 97 [degF] Arminda Holt Other [employer] Other 03-29-2021 11:15-0500 Body weight 108.86 kg Arminda Holt Other [employer] Other 03-29-2021 11:15-0500 SaO2% (BldA) [Mass fraction] 99 % Arminda Holt Other [facility] [employer] Other Encounters Encounter Date Encounter Type Care Provider Facility Start: 01-17-2024 End: 01-17-2024 ambulatory DMITRIY R [facility] Start: 01-15-2024 End: 01-15-2024 ambulatory JANINE [...] gestation of Start: 12-19-2023 End: 12-19-2023 ambulatory [facility] Start: 12-18-2023 End: 12-18-2023 ambulatory DMITRIY RODO Not Available Start: 12-18-2023 End: 12-18-2023 flow sheet Dmitriy Rodo DO Work Phone: [facility] Comment on above: Third trimester preg kianna; 30 weeks gestation of ; H/O placenta previa Start: 12-18-2023 End: 12-18-2023 Bamboo flowsheet Dmitriy Rodo DO Work Phone: [facility] Start: 12-18-2023 End: 12-18-2023 Bamboo flowsheet Dmitriy Rodo DO Work Phone: [facility] Start: 12-04-2023 End: 12-04-2023 ambulatory JANINE THOMAS Not Available Start: 11-22-2023 End: 11-22-2023 ambulatory DMITRIY R [facility] Start: 11-20-2023 End: 11-20-2023 ambulatory DMITRIY RODO Not Available Start: 10-25-2023 End: 10-25-[address] [facility] Start: 10-24-2023 End: 10-24-2023 ambulatory JANINE THOMAS Not Available Start: 09-24-2023 End: 09-24-2023 ambulatory DMITRIY RODO Not Available Start: 08-22-2023 End: 08-22-2023 ambulatory DMITRIY RODO Not Available Start: 07-26-2023 End: 07-26-2023 ambulatory DMITRIY RODO Not Available Start: 03-29-2021 End: 03-29-2021 ambulatory Arminda Holt Other [place] [employer] Other Start: 03-29-2021 Office outpatient ne w [...] 01-09-2017 Emergency department patient visit SELF SELF [facility] Procedures Date Procedure Procedure Detail [...] Routine [facility] [address] [place] [id number] Janine Guzman PA [address] [place] [address] [facility] Start: 01-15-2024 End: 01-15-2024 Patient encounter procedure 01/15/2024 2:50 PM EDT Routine [facility] [address] [place] [id number] Janine Guzman PA [address] [place] [address] [facility] Start: 01-01-2024 End: 01-01-2024 Patient encounter procedure 01/01/2024 1:00 PM EDT Routine [facility] [address] [place] [id number] Janine Guzman PA [address] [address] [facility] Start: 12-18-2023 End: 12-17-2024 [...] 01/15/2024 Payers Date Payer Category Payer [employer] [place] BCBS Memb er Subscriber Plan / Payer (Effective 2022-Present) Name: Kristin Grigsby Relation to Subscriber: Self Name: Kristin Grigsby Payer ID: Not on file Type: Not on file Address: [address] [place] [id number] 2022 Unknown BCBS BCBS xxxxxx [id number] 2022-Present [phone] [address] [place] [id number] [id number] 2022 Unknown [id number] 2017 Unknown [id number] 1989 Unknown [id number] 2.16.840.1.544592.3.579. 2.593 1989 Unknown [id number] 2.16.840.1.076481.3.579. 2.593 1989 Unknown [id number] 2.16.840.1.801709.3.579. 2.593 1989 Unknown [id number] 2.16.840.1.512734.3.579. 2.593 1989 Unknown [id number] 2.16.840.1.190793.3.579. 2.593 1989 Unknown [id number] 2.16.840.1.425481.3.579. 2.593 1989 Unknown [id number] 2.16.840.1.443455.3.579. 2.593 1989 Unknown [id number] 2.16.840.1.357976.3.579. 2.593 1989 Unknown [id number] 2.16.840.1.264770.3.579. 2.1286 1989 Unknown [id number] 2.16.840.1.043027.3.579. 2.1259 1989 Unknown [id number] 2.16.840.1.595529.3.579. 2.1259 1989 Unknown [id number] 2.16.840.1.445043.3.579. 2.1259 1989 Unknown [id number] 2.16.840.1.853801.3.579. 2.1259 1989 Unknown [id number] 2.16.840.1.866790.3.579. 2.1259 1989 Unknown [id number] 2.16.840.1.540928.3.579. 2.1259 1989 Unknown [id number] 2.16.840.1.095293.3.579. 2.1259 1989 Unknown [id number] 2.16.840.1.513660.3.579. 2.1259 1989 Unknown [id number] 2.16.840.1.911548.3.579. 2.1259 1989 Unknown [id number] 2.16.840.1.065014.3.579. 2.6 1989 Unknown [id number] 2.16.840.1.125469.3.579. 2.6 1989 Unknown [id number] 2.16.840.1.563390.3.579. 2.6 1989 Unknown [id number] 2.16.840.1.005233.3.579. 2.1286 1959 Private Health Insurance [id number] 1960 Self-pay [id number] Unknown [id number] 2.16.840.1.209755.19 Social History Date Type Detail Facility Start: 08-22-2023 Sex Assigned At [employer] Other Start: 08-22-2023 End: 01-01-2024 Tobacco smoking status MNIS Ex-smoker [facility] Start: 08-18-2015 End: 09-19-2014 [...] reviewed, and patient is to proceed to [facility] OR on her scheduled day. Orders Placed [...] nursing note reviewed. Exam conducted with a rn traveling present. Vitals: Estimated body mass index is [...] Dmitriy Koehler DO documented in this encounter [facility] Healthcare Evaluation note 03-29-2021 Note Date & [...] Patient care instructions given in writting by [facility] Care At Home document. [employer] Other Evaluation note Note Date & Type Note Facility Evaluation note Diagnosis Third trimester state, incidental 30 weeks gestation of H/O placenta previa documented in this encounter [facility] Evaluation note Note Date & Type Note Facility Evaluation note Diagnosis Third trimester state, incidental 32 weeks gestation of documented in this encounter [facility] Evaluation note Note Date & [...] AUTHOR AUTHOR'S ORGANIZ ATION 10/18/2019 [facility] DATE CREATED AUTHOR AUTHOR'S ORGANIZ ATION 11/24/2020 [facility] DATE CREATED AUTHOR AUTHOR'S ORGANIZ ATION 04/08/2021 [facility] DATE CREATED AUTHOR AUTHOR'S ORGANIZ ATION 04/18/2021 [facility] Specialist DATE CREATED AUTHOR AUTHOR'S ORGANIZ ATION 06/24/2021 [facility] DATE CREATED AUTHOR AUTHOR'S ORGANIZ ATION 12/21/2023 [facility] DATE CREATED AUTHOR AUTHOR'S ORGANIZ ATION 01/17/2024 [facility] EPIC DATE CREATED AUTHOR AUTHOR'S ORGANIZ ATION 01/19/2024 [facility] REASON FOR VISIT (unrecogniz ed section and [...] PRIMARY CLINICAL RECORDS. [facility] [employer] [facility]. provides no warranty or guarantee of the accuracy or completeness of information in this document.
== END 2024-01-22 20:59 | disposition home or self-care (01) ==
LOC: LAB 20:58
PROVIDERS: Visit Provider Physician Assistant
DX: Z34.93 Encounter for supervision of normal pregnancy, unspecified, third trimester (principal)
CPT/HCPCS: 87081; 87150

== ENCOUNTER 2024-01-24 07:04 | Outpatient (OUT) | payer BC, SELFPAY ==
--- OUTSIDE RECORDS SUMMARY | 2024-01-24 07:06 | XMS_ITS | CCD ---
Author Organization [facility] CliniSynv Care Team Providers Care Strawberry Grower Name Role Phone SELF, SELF Unavailable Unavailable [...] Admitting Unavailable EZEQUIEL, DR CUEVA Attending Unavailable HAY, DR CUEVA Consulting Unavailable REQUEST, NONE LISTED Primary Care Unavaila ble LISA BERGMAN Admitting Unavailable REQUEST, NONE LISTED Primary Care Unavaila LISA Cordoba Attending Unavailable PACHECO, LISA Consulting Unavailable JUNIOR, HERBERT Consulting Unavailable REQUEST, NONE LISTED Primary Care Unavaila dennis PACHECO, HERBERT Admitting Unavailable JUNIOR, HERBERT Attending Unavailable Arminda Holt Unavailable Unavailable Primary Care Provider Unavailabl e FLORO, LYNNETTE Referring Unavailable FLORO, LYNNETTE Primary Care Unavailable MACY BABCOCK Attending Unavailable FLORO, LYNNETTE Referring Unavailable FLORO, LYNNETTE Primary Care Unavailable RODODMITRIY MCCANN R Referring Unavailable FLORO, LYNNETTE Primary Care Unavailable RODO, DMITRIY R Referring Unavailable FLORO, LYNNETTE Primary Care Unavailable RODO, DMITRIY R Referring Unavailable FLORO, LYNNETTE Primary Care Unavailable DMITRIY KOEHLER Attending Unavailable RODODMITRIY MCCANN Attending Unavailable THOMAS, JANINE Attending Unavailable DMITRIY KOEHLER Attending Unavailable JANINE GUZMAN Attending Unavailable DMITRIY KOEHLER Attending Unavailable JANINE GUZMAN Attending Unavailable JANINE GUZMAN Attending Unavailable JANINE GUZMAN Attending Unavailable Medications Current Medications Medication Drug Class(es) Dates Sig (Normalized) Sig (Original) [id number] 200 actuat albuterol 0.09 mg/actuat metered dose inhaler (1 source) beta2-Adrenergic Agonist Start: 03-29-2021 take 2 puff(s) by inhalation every four hours as needed Albuterol Sulfate HFA 108 (90 Base) MCG/ACT 2 puffs as needed Inhalation every 4 hrs Mar, Active Iron Carbonyl-Vitamin C-FOS (CHEWABLE IRON PO) (13 sources) Iron Carbonyl-Vitamin C-FOS (CHEWABLE IRON PO) Take by mouth Active omeprazole 20 mg delayed release oral capsule (13 sources) Proton Pump Inhibitor Start: 07-26-2023 End: 07-25-2024 take 1 capsule by mouth before mealtime omeprazole (PriLOSEC) [address] capsule Indications: Heartburn Take 1 capsule (20 mg) by mouth in the morning. Take before meals. Do not crush or chew.. 30 capsule 11 07/26/2023 07/25/2024 Active ondansetron 4 mg disintegrating oral tablet (13 sources) Serotonin-3 Receptor Antagonist Start: 09-07-2023 take 1 tablet by mouth every six hours as needed for nausea ondansetron ODT (Zofran-ODT) 4 MG disintegrating tablet DISSOLVE 1 TABLET IN MOUTH EVERY 6 HOURS NEEDED FOR NAUSEA OR FOR VOMITING 09/07/2023 Active polysaccharide iron complex 391 mg oral capsule (6 sources) Start: 01-15-2024 End: 02-14-2024 take 1 capsule by mouth once daily iron polysaccharides (ProFe) 391.3 (180 Fe) MG capsule Indications: H/O: iron deficiency anemia Take 1 capsule (391.3 mg) by mouth Daily 30 capsule 2 01/15/2024 02/14/2024 Active Pre- (1 source) Pre-Marlene Active MV-Min-Fe Fum-FA-DHA ( 1 PO) (13 sources) MV-Min- Fe Fum-FA-DHA ( 1 PO) Take 1 each by mouth Daily Active valACYclovir 500 mg oral tablet (13 sources) Herpesvirus Nucleoside Analog DNA Polymerase Inhibitor, [...] 01-15-2024 Episodic Other and delivery including normal (12 sources) Encounter for test, result positive; Translations: [...] Residual codes; unclassified (2 sources) Gestation period, 35 weeks; Translations: [35 weeks gestation of ] 01-22-2024 Episodic Screening and history of mental health [...] 03-29-2021 Episodic Other aftercare (1 source) Other bed bug exterminator (current) drug therapy; Translations: [OTH CUSTODIAL CURRENT DRUG THERAPY] Onset: 08-19-2020 Episodic Residual [...] Range Facility Urinalysis macro (dipstick) panel (U)on 01-22-2024 Bilirubin, UA Negative Negative - 4(70) +++ mg/dL [facility] Blood, UA Negative Negative - 50 Wili/mcL [facility] Clarity, UA Clear [facility] re Color, UA Yellow [facility] Glucose, [facility]A Negative Negative - 1999(110) ++++ mg/dL [facility] Interpretation and review of laboratory results Normal [facility] Ketones, UA Negative Negative - 160(16) ++++ mg/dL [facility] Leukocytes, UA Negative Negative - 500+++ Yajaira/mcL [facility] Nitrite, UA Negative Negative - Positive [facility] pH, UA 7 5 - 9 [facility] e Protein, UA Negative Negative - 1999(20) ++++ mg/dL [facility] Spec Grav, UA 1.025 1 - 1.03 [facility] Urobilinogen, UA 0.2 0.2 - 12 mg/dL [facility] Health[facility] e ALL CBC WITH AUTO DIFFon BASOPHILS ABSOLUTE AUTO 0.1 N [facility] Basophils/100 WBC (Bld) 0.7 % 0.2 - 2.0 % [facility] Eosinophils/100 WBC (Bld) 2.8 % 0.9 - 7.0 % [facility] Erythrocyte distribution width (RBC) [Ratio] 12.4 % 11.0 - 15.0 % [facility] Hematocrit (Bld) [Volume fraction] 30.8 % Low 36.0 - 48.0 % [facility] Hemoglobin (Bld) [Mass/Vol] 10.3 g/dL Low 12.0 - 16.0 g/dL [facility] IMMATURE GRANULOCYTES ABS AUTO 0.11 High [facility] Immature granulocytes/100 WBC (Bld) 1.3 % High 0.0 - 0.5 % [facility] Interpretation and review of laboratory results Abnormal [facility] LYMPHOCYTES ABSOLUTE AUTO 2 [facility] Lymphocytes/100 WBC (Bld) 24.4 % 20.5 - 60.0 % [facility] MCH (RBC) [Entitic mass] 31.7 pg 26. 7 - 34.0 pg [facility] MCHC (RBC) [Mass/Vol] 33.4 g/dL 29.9 - 35.2 g/dL [facility] MCV (RBC) [Entitic vol] 94.8 fL 81.0 - 99.0 fL [facility] MONOCYTES ABSOLUTE AUTO 0.6 N [facility] Monocytes/100 WBC (Bld) 6.7 % 1.7 - 12.0 % [facility] NEUTROPHILS ABSOLUTE AUTO 5.3 [facility] Neutrophils/100 WBC (Bld) 64.1 % 43.0 - 75.0 % [facility] Platelet mean volume (Bld) [Entitic vol] 9.7 fL 9.5 - 13.5 fL [facility] TBH EO # 0.2 [facility] PLT 274 [facility] TB RBC 3.25 Low [facility] TB WBC 8.2 [facility] Healthcar e [facility] Healthcar e Urinalysis macro (dipstick) panel (U)on 01-15-2024 Bilirubin, UA Negative Negative - 4(70) +++ mg/dL [facility] Blood, UA Negative Negative - 50 Wili/mcL [facility] Clarity, UA Clear [facility] re Color, UA Yellow [facility] Glucose, UA Negative Negative - 1999(110) ++++ mg/dL [facility] Interpretation and review of laboratory results Normal [facility] Ketones, UA Negative Negative - 160(16) ++++ mg/dL [facility] Leukocytes, UA Negative Negative - 500+++ Yajaira/mcL [facility] Nitrite, UA Negative Negative - Positive [facility] pH, UA 7 5 - 9 [facility] Health[facility] e Protein, UA Negative Negative - 1999(20) ++++ mg/dL [facility] Spec Grav, UA 1.02 1 - 1.03 [facility] Urobilinogen, UA 0.2 0.2 - 12 mg/dL [facility] Urinalysis macro (dipstick) panel (U)on 01-01-2024 Bilirubin, UA Negative Negative - 4(70) +++ mg/dL [facility] Blood, UA Negative Negative - 50 Wili/mcL [facility] Healthcare Clarity, UA Clear [facility] re [...] Center pH, UA 7 5 - 9 [facility] Health[facility] e Protein, UA Positive Negative - 1999(20) ++++ mg/dL [facility] Comment on above: 30 Spec Grav, UA 1.025 1 - 1.03 [facility] Urobilinogen, UA 0.2 0.2 - 12 mg/dL [facility] Urinalysis macro (dipstick) panel (U)on 12-18-2023 Bilirubin, UA Negative Negative - 4(70) +++ mg/dL [facility] Blood, UA Negative Negative - 50 Wili/mcL [facility] Clarity, UA Clear [facility] Healthca re Color, UA Yellow [facility] Healthcar e Glucose, UA Negative Negative [...] Center pH, UA 6.5 5 - 9 [facility] Health[facility] e Protein, UA Trace Negative - 1999(20) ++++ mg/dL [facility] Spec Grav, UA 1.030 1 - 1.03 [facility] Urobilinogen, UA 0.2 0.2 - 12 mg/dL [facility] e Complete Blood Count Auto Di ffon 06-14-2021 Basophils (Bld) [#/Vol] 0.0 10*3/uL Normal 0.0-0.2 [facility] Comment on above: Result Comment: PERF ORMED BY: [place] [address] PATHOLOGIST LEAD MECHANICAL ENGINEER STEPHANIE ROACH M.D. Performed By: #### C BC #### [address] Basophils/100 WBC (Bld) 0.6 % Normal . [facility] Comment on above: Performed By: #### C BC #### [address] Eosinophils (Bld) [#/Vol] 0.1 10*3/uL Normal 0.0-0.45 [facility] Comment on above: Performed By: #### C BC #### [address] Eosinophils/100 WBC (Bld) 1.7 % Normal . [facility] Comment on above: Performed By: #### C BC #### [address] Erythrocyte distribution width (RBC) [Ratio] 13.5 % Normal 11.9-15.3 [facility] Comment on above: Performed By: #### C BC #### [address] Hematocrit (Bld) [Volume fraction] 30.6 % Low 34.0-46.4 [facility] Comment on above: Performed By: #### C BC #### [address] Hemoglobin (Bld) [Mass/Vol] 10.2 g/dL Low 11.8-15.4 [facility] Comment on above: Performed By: #### C BC #### [address] Lymphocytes (Bld) [#/Vol] 2.1 10*3/uL Normal 1.00-4.8 [facility] Comment on above: Performed By: #### C BC #### [facility] [address] Lymphocytes/100 WBC (Bld) 24.1 % Normal . [facility] Comment on above: Performed By: #### C BC #### [facility] [address] MCH (RBC) [Entitic mass] 31.4 pg Normal 24.7-34.3 [facility] Comment on above: Performed By: #### C BC #### [address] MCV (RBC) [Entitic vol] 94.0 fL Normal 80-100 [facility] Comment on above: Performed By: #### C BC #### [address] Mean Corpuscular HGB Conc 33.4 g/dL Normal 32.0-35.0 [facility] Comment on above: Performed By: #### C BC #### [facility] [address] [place] [address] [place] Monocytes (Bld) [#/Vol] 0.4 10*3/uL Normal 0.0-0.8 [facility] Comment on above: Performed By: #### C BC #### [place] [address] [place] Monocytes/100 WBC (Bld) 4.9 % Normal . [facility] Comment on above: Performed By: #### C BC #### [place] [address] [place] Neutrophils (Bld) [#/Vol] 5.9 10*3/uL Normal 1.8-7.7 [facility] Comment on above: Performed By: #### C BC #### [address] Neutrophils/100 WBC (Bld) 68.7 % Normal . [facility] Comment on above: Performed By: #### C BC #### [facility] [address] Nucleated RBC/100 WBC (Bld) [Ratio] 0.1 % Normal 0-0.5 [facility] Comment on above: Performed By: #### C BC #### [facility] [address] Platelet mean volume (Bld) [Entitic vol] 8.0 fL Normal 6.3-10.7 [facility] Comment on above: Performed By: #### C BC #### [facility] [address] Platelets (Bld) [#/Vol] 298 10*3/uL Normal 150-450 [facility] Comment on above: Performed By: #### C BC #### [address] RBC (Bld) [#/Vol] 3.25 10*6/uL Low 3.60-5.00 [facility] Comment on above: Performed By: #### C BC #### [address] WBC (Bld) [#/Vol] 8.6 10*3/uL Normal 4.5-11.0 [facility] Comment on above: Performed By: #### C BC #### [place] [address] [place] Dipstick and Microscopicon 0 06-14-2021 Appearance (U) Clear Normal Clear [facility] Comment on above: Order Comment: Name Collection Type:: Clean-Voided Midstream Performed By: #### A DDONUAPLUS, OBUDS #### [place] [address] [place] Bacteria,Urine None Seen Normal None Seen [facility] Comment on above: Order Comment: Name Collection Type:: Clean-Voided Midstream Performed By: #### A DDONUAPLUS, OBUDS #### [place] [address] [place] Bilirubin,Urine Negative Normal Negative [facility] Comment on above: Order Comment: Name Collection Type:: Clean-Voided Midstream Performed By: #### A DDONUAPLUS, OBUDS #### [place] [address] [place] Color (U) Yellow Normal Yellow [facility] Comment on above: Order Comment: Name Collection Type:: Clean-Voided Midstream Performed By: #### A DDONUAPLUS, OBUDS #### [address] Glucose Ql (U) Normal Normal Normal [facility] Comment on above: Order Comment: Name Collection Type:: Clean-Voided Midstream Performed By: #### A DDONUAPLUS, OBUDS #### [place] [address] [place] Hyaline Casts,Urine 0-8 Normal 0-8 [facility] Comment on above: Order Comment: Name Collection Type:: Clean-Voided Midstream Result Comment: PERF ORMED BY: [place] [address] PATHOLOGIST LEAD MECHANICAL ENGINEER STEPHANIE ROACH M.D. Performed By: #### A DDONUAPLUS, OBUDS #### [address] Ketones Ql (U) Negative Normal Negative [facility] Comment on above: Order Comment: Name Collection Type:: Clean-Voided Midstream Performed By: #### A DDONUAPLUS, OBUDS #### [address] Leukocyte esterase Test strip Ql (U) Negative Normal Negative [facility] Comment on above: Order Comment: Name Collection Type:: Clean-Voided Midstream Performed By: #### A DDONUAPLUS, OBUDS #### [place] [address] [place] Nitrite,Urine Negative Normal Negative [facility] Comment on above: Order Comment: Name Collection Type:: Clean-Voided Midstream Performed By: #### A DDONUAPLUS, OBUDS #### [place] [address] Occult Blood,Urine 3+ High Negative [facility] Comment on above: Order Comment: Name Collection Type:: Clean-Voided Midstream Result Comment: PERF ORMED BY: [place] [address] PATHOLOGIST LEAD MECHANICAL ENGINEER STEPHANIE ROACH M.D. Performed By: #### A DDONUAPLUS, OBUDS #### [address] pH (U) 7.5 [pH] Normal 5.0-9.0 [facility] Comment on above: Order Comment: Name Collection Type:: Clean-Voided Midstream Performed By: #### A DDONUAPLUS, OBUDS #### [address] Protein,Urine Negative Normal Negative [facility] Comment on above: Order Comment: Name Collection Type:: Clean-Voided Midstream Performed By: #### A DDONUAPLUS, OBUDS #### [address] RBC,Urine 20-49 High 0-4 [facility] Comment on above: Order Comment: Name Collection Type:: Clean-Voided Midstream Performed By: #### A DDONUAPLUS, OBUDS #### [address] Specificy [place],Urine 1.009 Normal 1.001-1.030 [facility] Comment on above: Order Comment: Name Collection Type:: Clean-Voided Midstream Performed By: #### A DDONUAPLUS, OBUDS #### [place] [address] [place] Squamous Epithelial Cell,Urine 1-2 Normal 0-2 [facility] Comment on above: Order Comment: Name Collection Type:: Clean-Voided Midstream Performed By: #### A DDONUAPLUS, OBUDS #### [address] Urobilinogen,Urine Normal Normal Normal [facility] Comment on above: Order Comment: Name Collection Type:: Clean-Voided Midstream Performed By: #### A DDONUAPLUS OBUDS #### [facility] [address] [place] [address] WBC,Urine None Seen Normal 0-4 [facility] Comment on above: Order Comment: Name Collection Type:: Clean-Voided Midstream Performed By: #### A DDONUAPLUS OBUDS #### [address] OB Urine Drug Screen (NO THC )on 06-14-2021 Amphetamine Screen,Urine Negative Normal Negative [facility] Comment on above: Performed By: #### A DDONUAPLUS OBUDS #### [address] Barbiturate Screen,Urine Negative Normal Negative [facility] Comment on above: Performed By: #### A DDONUAPLUS, OBUDS #### [place] [address] [place] Benzodiazepines Screen,Urine Negative Normal Negative [facility] Comment on above: Performed By: #### A DDONUAPLUS, OBUDS #### [address] Cocaine Screen,Urine Negative Normal Negative [facility] Comment on above: Performed By: #### A DDONUAPLUS, OBUDS #### [facility] [address] [place] [address] [place] Opiate Screen,Urine Negative Normal Negative [facility] Comment on above: Performed By: #### A DDONUAPLUS, OBUDS #### [facility] [address] [place] [address] Phencyclidine Screen, Urine Negative Normal Negative [facility] Comment on above: Result Comment: Thes e are unconfirmed results and should not be used for legal purposes. Drug Cut-Off Concentration: AMPH 1000 ng/mL NOLBERTO 200 ng/mL BIANCA 200 ng/mL COCM 300 ng/mL OP 300 ng/mL PCP 25 ng/mL PERFORMED BY: [address] [address] PATHOLOGIST LEAD MECHANICAL ENGINEER STEPHANIE ROACH M.D. Performed By: #### A DDSHENA, OBUDS #### [facility] [address] [place] [id number] [facility] OB 2nd/3rd Trimesteron OB 2nd/3rd [...] 4.6 cm (19 weeks, 6 days) Head Batmxbnpgkjhm81.3 cm (19 weeks, 0 days) Abdominal Tcmxlhpuqqjid66.6 cm (19 weeks, 0 days) Femur Length 3.1 cm (19 weeks, 3 days) PresentationBreech Weight (g) by Mwsfoqndvc33.4%* These measurements result in an estimated date [...] by Ayo Jiménez on 04/18/2021 0921 Normal [facility] Director Of In Service Education Coding Summaryon 04-07-2021 Coding Summary HTMLBase 64 IcfznykpISa1qLi+PG hlYWQ+LE0HJKNxB87g mFOmzT9GO8cYAY2RQA JMCRCURJ5YHH9vpJU3 YGnaZ7HgdsHv PjffnOYgMA18XVg2XQ H0cRdhKPpfmA0thTJw S1t9ZcQlZR60uQ29BA kaKXMzTnN1FvKyqdqk bWFy S5qeUwZdeHFcTry+PH RhYmxlIHdpZHRoPScx XJHwMsRwaGxiZW9lIs 9yZGVyLWNvbGxhcHNl OiBj h9xyWRUdRPbiIX5qvZ mrW7EqhOY9MLOow4r3 Fl41jQW+QDBgQEE7tD apJUshg827OzMzo8kt IDM3 tQGpMIlzRLK0A51np1 N7LSQbMSZyQZS9aOD4 lQ7ukKuotoxdR7PdfC VxJbH0OXQ8vQZunD6g bGln crxouL9oGac+Q09ESU 5RYWUMJC0DZdm4H8Bj PjwvdHI+UE54VYNmKX 99wTJrsDXoi9autUi7 JzEw JALkRPM6iPjrJPaev7 CyZUNfY58uaBCrm6R7 IGNvbGxhcHNlOyBlbX V1tE8mZQhibkwfp8bb dzsn Kimrf8nktd25xE00W3 2oLSpvEJLuAWW1CHEy VHGpvDkswr4cmS1qHj 8+IVpvu4ecd4ijwJg6 IjIw AUFctdRhbEjiPNG2k1 OrTs18Z3YhiJlrt7Qg Pca2gq82pJXav7W4uW L5MLsiCUMynW7pODfe ZnQ6 TXLcYrZcfG62fYJuKJ rjNs4xrSguwFrxUI0h YPFiuqhqINRacH0sZQ JxcNVxsOnyOS8hVTGk bjtm y508SpToQMO4HKYzvS WyI0QulR3pDpBuLZGw GOMqL1YmeLRvPPxeQ5 62FXntEhJ3HRIhugNm Y2Fs RTQdaWskBhV5a3T4Gf 4Iy7NmhbocYRT2CMfs CUSqQqBwSwUbIpZ0F3 HvEoi0HDHqtWtuWR1q J3Bh GBSsrcfjcfqbiEH6XM RaKKPtaK85rEOeULle Ym6ob1V0t245LDEiJA NliD53Jk5bhFtaNDFw dCBU tE8hbebyh1gxbwbyBr MdTKAvRUd0GJo5LOUw uLgnYkEiYZN0CqV9DO F1ySQakU8pdHcvxmkw dG9w Oyc+W31rpH2hNIG6GI B6ztapKSMikqGwLX96 SA68Y5NoHgbmhZRnbS U+SOIskgRugYcaZG2l YmFj b5nzp0IjHOtdM0JqOF IlUWxjSza2YRIvFDW1 xXI1kT1bIITbSXufj9 X9rEI7K5YxqyVowy4l b2xs MDVhGJssS86nnTJqo0 N1VJXnqEF7WVEsyLgx JtKyeH42Fnq+PGNvbG hoi9IyHjoxu1cus2hc dGg9 IjMwJSIgdmFsaWduPS V3t2EfQv43G82lEBzc ZHRoPSIxNSUiIHZhbG erhk9jgN3jRc4+PGNv bCB3 uYK5uT1nLHQmFhY6FA wuB497DqCrlKNdVrse y8lbg4yxqSq9FuNjXK YoerDbkEfoBWI2m9Rt Lz48 D91wUGvmEAHxXYGvEH PlDAZydCazna9dmF1s Ii8+NF6kr7mbmx25jH 48dHI+IZBgPYC1iVdj PSdw TEZjnI2lJTbtRwU6WC LxVlQxlO33uIArHTee Yx8yaIrclAfoCP0uHJ Emtunqe252XaIdk2pk IDEw gXGxPEqcXCZ5T93ik2 G0NPAxBAIwOQO7zSA7 uR5rfZrpbveruNWupC sgdmVydGljYWwtYWxp Z246 IHRvcDsnPlBhdGllbn VjXaXqHZq4Q3EbIeo3 YGHpdQvkMI9ryUNxIC bgAn9vxRanzKztDC5y NTBp psjoz320EqBqz4jpKW NedPPnRFzxXGG0E71v d1M2QARtRHWnYKS2lB M1wJ5maDbdxvbayMCo dDsg dmVydGljYWwtYWxpZ2 46IHRvcDsnPkJpcnRo BBLnrXK4OH71IN84dR Orh7M8iRD6L2AqLLHj bmct tyynnZA2VQKvWZLztD 91Bc6rfVncLq8cGGZa LNK0MRDrrTBjL5EoiS 1zLjUtPAWmWBZfJ2Ho eHQt YHgiR217JCiiYrG2NQ OowoVjZ2BtOFBkuCdq GdV7z8U9Kn7YS1V8YQ 91LW56mWThm3V3dAT2 J3Bh YGHgaiwtlaxtmRG3DZ ZgPVOhvO56Xw3bzFwq Mk0oKFUfHTF7LVGgpG GeZ6HkvH3hCtJaXCBl MDAw T2FijWFbOArgC410NM loYrZ4ERNogfXyM2Co PWMfcVxrWyO3j2U6Fm 5KEXu4ZG16EY37sGQl c3R5 yEH4A8BsODUlzkrtyk cvlUS1KDTnSCZjdF77 Zf2gbIouNs5xWOHbBE K2SZTbfWMfN5KbzX9s OiAj EGBtZBHmR5HxhLTaJB awY020AQreEfD8VEMc baHfF5PkGGDtwBvtBu B9g6J4It8CVTFcIM14 IFR5 kUI9TQ59QY71Z6RqHu wvdGFibGU+PHRhYmxl IHdpZHRoPScxMDAlJy IxlVdrZP4zQg8dADLl LWNv zBhrpJEdCrAsr6izVB DuSIshOV3uoYvgL5Wg hZU4APKzj5m3Tp31J9 0bX2QvqZZ+PGNvbCB3 aWR0 gU9xBqJmMfI7TNteO9 71CuFvvBUvDezyk5fk z5pjvIt6IkA7HQEppi ZqaYznPLP9r3McBn65 Y29s IHdpZHRoPSIxNSUiIH KoxSocth0oqB8dEf5+ SDEcpGF3zDE6iS6sSy GfXjO6KNypC885RoLq cCIv Ojgfi0mjr2mavXe9Gw IwJSIgdmFsaWduPSJ0 m7NeAi09W6LbxLpiw8 PxNcb7hb94jHKfn2X7 bGU9 X4HuWIXovkqymWGdlL ilIV0vAAPvwzasVAJp wB0kRYWpB8r8YbTfXx H5IAwzW4YyiiR6BOKd cHQg DPgiOAP8K70pd6F1XU CxMGDnTCR0xEN5zP5m bGlnbjogbGVmdDsgdm HfvXxmLCbhVFdrC654 IHRv oZtvUDCcfA4tZGXseJ LasImoZG8oTCOnhyib MeBTDoRGAdsbWA6CKT CFZCQ0U7WlPky5PQUf dHls XR4lgWUcVIjjTa7niI rmzCmnRK0hRPXezcba HZRgyC5lCUVkfFHynX ntKD8mALKmvksim067 OiAx KMM1ZRWhmFUfD4NvxT 6sGqCfGBZpVPHvD6Yt vXMzSVvpS771IKpuYk U8MLLkkpLgX0ImFIPf aWdu RuG6n9W5Ji3sLt9kGm 3vOXkzPZ27VR96mXRw r8T0jTH2T4BvEEHemo bxapvajNS2HQMjEWMu aW47 wJFaOGqlTl5tk3R3w4 28YTSqNZWsnO81Gu6z tRjtLVHnwLVZfF7ruk fsn9fysbpwKyReNPCo MDt0 MTh4XUEmfTaoHfEdNE B5JkZ9YSO0fWSijJ2i nOhgqyvbmB1wHnw+Mz WwTMCtqkJ4V4HnAgg9 ZCBz zKvlTO4miBSpOWhuCi 0xzByfsCrbYI3sEGPl sdmiJMZjqO8iVXKuyC VslBzzFW4mJPWygunm b250 KoVtSPP0UAXooSDiG0 NuiD4hIkNfBFXeVPGu X1ZnjWBjCQzzC041GM sxEfC2XBDvppZrV9Cy LWFs xGucGyG5a5E2Yg2IER 0BSWM2M0VzCxe0QFCw kQlwVF6vjJQcVFzfWp 7epUrboEjnBT1tKFCz bjtw WKNebD3yFPFywSSywF qfRC1hYGQjpofkh830 IoOqBCR1IZWalSRhD8 TafK6hDkTjDVXzYYOu O3Rl nEUyZUtbR013GByaCp K1VUVsiyRpW2AgKEAx kUaaFhP6z7O5Vi6QDN wvdGQ+KF97jm63V5Se Ymxl Vyr6CCQfIUG6eDD9kZ 7pPKPeUJoeh3M9yNE7 Q1XwhoCrmy3ym1hxDX YkEXjeE29wtQTdv1I5 IGVt fEY2WHJcxSshMgWuvM 93Oyc+OMPchSwiy8Nn Nnkds5vlk9yorBn4Pm MwJSIgdmFsaWduPSJ0 b3Ai Mv58H82aMZuqBLAfCT QkQGUaNPXcyQcdnk1b sU7cHf9+LDJxfLW4mM L1oI8eOqFnDsZ2LTae Z249 QtUtuTSzLizho5clf0 ijxEv4CzRoBBQmpiFt bGblMHK2k6AmGa81K2 VcpEuar2JoVsa9nf86 dGQg i9C2cEU9X4YyXPIkok qfbKCdyFwmRK7wZAZk vgosKSUlxZ9tNLCgN3 w9LlCiOpG5AVhsV0Qh bnQ6 IGJvbGQgMTBwdCBUaW 7agchrd8jtidhjPeLi NMNsIDx4RBi0DRNcfV bdGsKlNYH7JwI9YJR8 aWNh cJ3rjUylpbjmjE3vSz c+DJw3e8tnmOWjSR0g zIF8ZH31KL48tVMoi4 N4fXW5J9BxPUYpdjcc cmln uOE1KZHlIPSclZ72Ud 5tmLvmDc4lKRPvQJL6 ENFieKVvS0KtmB8gTc ZrKEZgQVWvN6UxbGAi YWxp A489QIznUuF9EBSedw SfE9AlYXFbbWhbXpQ1 u5R1Mt2DFI29HJ84OW 50fGGhn7M3lBG9M9Cu ZGRp xmwevkomfPJ5JYWsYP BovU03Zg4pnXfwBm6q ZNPhNAK1OOBkzKAiA9 IypK4fDwBnNOOzZIAc O3Rl jGIwQMcpG396MJqoNh A5JTQxhuEjQ8DpTQSq bYkqHiS7c8U6Ah7NWh 34RL20RZ02xRIbb0A7 bGU9 P7AgUWRohdkorsycvQ R2ZVTkMEKlaT03Ny8i rGaiRa0xGBJdFCQ9EF SciQNtC2WbzV5nChCt MDAw VJMnR9YnuYNcXEkoY0 40PMscPwP7LMCxzpEd W7QrXHLvfWufDcP4t2 A7Su5PKUynpus1B0Ai Pjwv dHI+CX09ZWMvTY16jB CweRItb2qwbEx0QpKd ADRnYJQ5pJdyWEaxr7 EvVPZdF43soQLhj4F4 IGNv bGx (more content not included)... [facility] Consent Formson 04-01-2021 Consent Forms [id number]01-2021 Provider Orders [id number] 2021 Result Positive [employer] Other HERPES SIMPLEX VIRUS 1/2 DNA PCRon 11-11-2020 HSV-1 DNA Negative Normal Negative [facility] Comment on above: Performed By: #### C BC #### [facility] [address] [place] [address] Sunshine Carlos HSV-2 DNA Positive Abnormal Negative [facility] Comment on above: Result Comment: This test was developed and its performance characteristics determined by [facility]. It has not been cleared or approved by the [place] Food and Drug Administration. The FDA has determined that such clearance or approval is not necessary. This test is used for clinical purposes. It should not be regarded as investigational or research. Performed By: #### C BC #### [facility] [facility] [address] [place], [place] [id number] Sunshine Gonzalezen CULTURE URINEon 11-10-2020 CULTURE URINE Isolate 1 Streptococcus pyogenes >100,000 cfu/mL of ORGANISM 1 Streptococcus pyogenes ANTIBIOTIC M.I.C RX STATUS Benzylpenicillin <=0.06 S F Ampicillin <=0.25 S F Cefotaxime <=0.12 S F Ceftriaxone <=0.12 S F Levofloxacin 0.5 S F Erythromycin 4 R F Clindamycin <=0.25 S F Linezolid <=2 S F Vancomycin <=0.12 S F Tetracycline <=0.25 S F Normal [facility] Comment on above: Performed By: #### C BC #### [facility] [address] [place], [place] [id number] Sunshine Carlos CHLAMYDIA/GONOCOCCUS TINA (SW AB/URINE/PAPon 11-09-2020 Chlamydia trachomatis, TINA Negative Normal Negative [facility] Comment on above: Performed By: #### C T/NGNA #### [facility] [address] [place], [place] [id number] Sunshine Carlos Neisseria gonorrhoeae, TINA Negative Normal Negative [facility] Comment on above: Performed By: #### C T/NGNA #### [facility] [address] [place] [address] Sunshine Carlos Covid-19 PCR ([facility])on 10-18 SARS-CoV-2 (COVID-19) RNA TINA+probe Ql (Unsp spec) Not detected Normal NOT DETECTED [facility] Comment on above: Result Comment: This test is not yet approved or cleared by the [place] FDA. When there are no FDA-approved or cleared tests available, and other criteria are met, FDA can make tests available under an emergency access mechanism called an Emergency Use Authorization (EUA). The EUA for this test is supported by the [place] of Health and Human Service's (HHS's) declaration [...] Performed By: #### C VDAGS, CVDTB #### [facility] [address] [place] [address] Sunshine Carlos ER URINE PROFILEon Bilirubin Ql (U) Negative Normal NEGATIVE [facility] Comment on above: Performed By: #### C BC #### [facility] [address] [place] [address] Sunshine Carlos Clarity (U) CLEAR Normal CLEAR [facility] Comment on above: Performed By: #### C BC #### [facility] [address] [place] [address] Sunshine Carlos Color (U) LT. YELLOW Normal YELLOW [facility] Comment on above: Performed By: #### C BC #### [facility] [address] [place] [address] Sunshine Breanna ERUAHD A micrscopic examination will be performed if indicated. Normal [facility] Comment on above: Performed By: #### C BC #### [facility] [address] [place] [address] Sunshine Breanna Glucose Ql (U) Negative Normal NEGATIVE [facility] Comment on above: Performed By: #### C BC #### [facility] [address] [place] [address] Sunshine Breanna Hemoglobin Ql (U) LARGE Abnormal NEGATIVE [facility] Comment on above: Performed By: #### C BC #### [facility] [address] [place] [address] Sunshine Breanna Ketones Ql (U) Negative Normal NEGATIVE [facility] Comment on above: Performed By: #### C BC #### [facility] [address] [place] [address] Sunshine Breanna LEUKOCYTES Negative Normal NEGATIVE [facility] Comment on above: Performed By: #### C BC #### [facility] [address] [place] [address] Sunshine Breanna Nitrite Ql (U) Negative Normal NEGATIVE [facility] Comment on above: Performed By: #### C BC #### [facility] [address] [place] [address] Sunshine Breanna pH (U) 5.5 [pH] Normal 5-9 [facility] Comment on above: Performed By: #### C BC #### [facility] [address] [place] [address] Sunshine Breanna SPEC GRAVITY >=1.030 Abnormal 1.005-<=1.02 5 [facility] Comment on above: Performed By: #### C BC #### [facility] [address] [place] [address] Sunshine Breanna UA PROTEIN Negative Normal NEGATIVE/ TRACE [facility] Comment on above: Performed By: #### C BC #### [facility] [address] [place] [address] Sunshine Breanna UR MICRO IND INDICATED Normal [facility] Comment on above: Performed By: #### C BC #### [facility] [address] [place], [place] [address] Sunshine Carlos Urobilinogen Qn (U) 0.2 {Braden'U}/dL Normal 0.2 - 1. 0 [facility] Comment on above: Performed By: #### C BC #### [facility] [address] [place], [place] [address] Sunshine Carlos URon 11-08-2020 , QUAL Negative Normal NEGATIVE [facility] Comment on above: Performed By: #### C BC #### [facility] [address] [place], [place] [address] Sunshine Carlos STREPT SCREENon 11-08-2020 STREP SCREEN A Positive Abnormal NEGATIVE [facility] Comment on above: Performed By: #### C BC #### [facility] [address] [place] [address] Sunshine Carlos SYMPTOMATIC COVID-19 ANTIGEN on 11-08-2020 EUA Statement SEE BELOW Normal [facility] Comment on above: Result Comment: This [...] revoked sooner. Performed By: #### C VDAGS, CVDTBH #### [facility] [address] [place] [address] Sunshine Carlos SARS-CoV-2 (COVID-19) RNA TINA+probe Ql (Unsp spec) Negative Normal NEGATIVE [facility] Comment on above: Result Comment: CONF IRMATION BY PCR PENDING PER CDC GUIDELINES/ SYMPTOMATIC PATIENT. Performed By: #### C VDAGS, CVDTBH #### [facility] [address] [place], [place] [address] Sunshine Breanna URINE MICROSCOPIC ONLYon AMORPHOUS CRYSTALS FEW Normal [facility] Comment on above: Performed By: #### C BC #### [facility] [address] [place], [place] [address] Sunshine Breanna BACTERIA SMALL Abnormal NONE SEEN [facility] Comment on above: Performed By: #### C BC #### [facility] [address] [place] [address] Sunshine Breanna Bacteria identified Cx Nom (U) INDICATED Normal [facility] Comment on above: Performed By: #### C BC #### [facility] [address] [place] [address] Sunshine Breanna CAST NONE SEEN Normal NONE SEEN [facility] Comment on above: Performed By: #### C BC #### [facility] [address] [place], [place] [address] Sunshine Breanna Crystals LM Nom (Urine sed) SEEN Abnormal NONE SEEN [facility] Comment on above: Performed By: #### C BC #### [facility] [address] [place], [place] [address] Sunshine Breanna Epithelial cells LM Ql (Urine sed) MODERATE Abnormal NONE SEEN /RARE [facility] Comment on above: Performed By: #### C BC #### [facility] [address] [place], [place] [address] Sunshine Breanna MUCOUS MODERATE Abnormal NONE SEEN [facility] Comment on above: Performed By: #### C BC #### [facility] [address] [place] [address] Sunshine Breanna RBC 2-5 Abnormal 0-2 [facility] Comment on above: Performed By: #### C BC #### [facility] [address] [place], [place] [address] Sunshine Breanna WBC 5-10 Abnormal NONE SEEN [facility] Comment on above: Performed By: #### C BC #### [facility] [address] [place], [place] [address] Sunshine Breanna US SINGLE QUAD RT UPPERon [...] EDMUNDO GUZMAN Date: 2020-08-19 15:23 Normal [facility] AMYLASEon 08-17-2020 Amylase [Catalytic activity/Vol] 49 U/L Normal 31-110 [facility] Comment on above: Performed By: #### C BC #### [facility] [address] [place] [address] Sunshine Carlos CBC AUTO DIFFon 08-17-2020 BASO # 0.0 103/ul Normal 0.0-0.1 [facility] Comment on above: Performed By: #### C BC #### [facility] [address] [place], [place] [address] Sunshine Carlos Basophils/100 WBC (Bld) 0.6 % Normal 0.2-2.0 [facility] Comment on above: Performed By: #### C BC #### [facility] [address] [place] [address] Sunshine Carlos EO # 0.1 103/ul Normal 0.0-0.7 [facility] Comment on above: Performed By: #### C BC #### [facility] [address] [place], [place] [address] Sunshine Breanna Eosinophils/100 WBC (Bld) 1.3 % Normal 0.9-7.0 [facility] Comment on above: Performed By: #### C BC #### [facility] [address] [place], [place] [address] Sunshine Breanna Erythrocyte distribution width (RBC) [Ratio] 13.0 % Normal 11.0-15.0 [facility] Comment on above: Performed By: #### C BC #### [facility] [address] [place], [place] [address] Sunshine Breanna Hematocrit (Bld) [Volume fraction] 39.1 % Normal 36.0-48.0 [facility] Comment on above: Performed By: #### C BC #### [facility] [address] [place] [address] Sunshine Breanna Hemoglobin (Bld) [Mass/Vol] 13.2 g/dL Normal 12.0-16.0 [facility] Comment on above: Performed By: #### C BC #### [facility] [address] [place] [address] Sunshine Breanna IG # 0.01 10e3/ul Normal 0.00-0.03 [facility] Comment on above: Performed By: #### C BC #### [facility] [address] [place] [address] Sunshine Breanna IG % 0.1 % Normal 0.0-0.5 [facility] Comment on above: Performed By: #### C BC #### [facility] [address] [place] [address] Sunshine Breanna LYMPH # 2.4 103/ul Normal 1.2-3.8 [facility] Comment on above: Performed By: #### C BC #### [facility] [address] [place], [place] [address] Sunshine Breanna Lymphocytes/100 WBC (Bld) 33.5 % Normal 20.5-60.0 [facility] Comment on above: Performed By: #### C BC #### [facility] [address] [place] [address] Sunshine Carlos MANUAL DIFF REQ NO Normal [facility] Comment on above: Performed By: #### C BC #### [facility] [address] [place], [place] [address] Sunshine Carlos MCH (RBC) [Entitic mass] 30.6 pg Normal 26.7-34.0 [facility] Comment on above: Performed By: #### C BC #### [facility] [address] [place] [address] Sunshine Carlos MCHC (RBC) [Mass/Vol] 33.8 g/dL Normal 29.9-35.2 [facility] Comment on above: Performed By: #### C BC #### [facility] [address] [place] [address] Sunshine Carlos MCV (RBC) [Entitic vol] 90.7 fL Normal 81.0-99.0 [facility] Comment on above: Performed By: #### C BC #### [facility] [address] [place] [address] Sunshine Carlos MONO # 0.3 103/ul Normal 0.3-0.8 [facility] Comment on above: Performed By: #### C BC #### [facility] [address] [place] [address] Sunshine Carlos Monocytes/100 WBC (Bld) 4.1 % Normal 1.7-12.0 [facility] Comment on above: Performed By: #### C BC #### [facility] [address] [place] [address] Sunshine Carlos NEUT # 4.2 103/ul Normal 1.4-6.5 [facility] Comment on above: Performed By: #### C BC #### [facility] [address] [place], [place] [address] Sunshine Carlos Neutrophils/100 WBC (Bld) 60.4 % Normal 43.0-75.0 [facility] Comment on above: Performed By: #### C BC #### [facility] [address] [place] [address] Sunshinevinita Carlos Platelet mean volume (Bld) [Entitic vol] 10.7 fL Normal 9.5-13.5 [facility] Comment on above: Performed By: #### C BC #### [facility] [address] [place] [address] Sunshine Carlos PLT 321 103/ul Normal 150-450 [facility] Comment on above: Performed By: #### C BC #### [facility] [address] [place] [address] Sunshine Carlos RBC 4.31 106/ul Normal 4.20-5.40 [facility] Comment on above: Performed By: #### C BC #### [facility] [address] [place] [address] Sunshine Carlos WBC 7.0 103/ul Normal 4.0-11.0 [facility] Comment on above: Performed By: #### C BC #### [facility] [address] [place] [address] Sunshine Gonzalezen LIPASEon 08-17-2020 Lipase [Catalytic activity/Vol] 97.0 U/L Normal 23.0-300.0 [facility] Comment on above: Performed By: #### T CANDE, CMP, LIPA, JANINE #### [facility] [address] [place] [address] Sunshine Carlos PROF 14(COMP METB)on 021 Albumin [Mass/Vol] 3.5 g/dL Normal 3.5-5.0 [facility] Comment on above: Performed By: #### T CANDE, CMP, LIPA, JANINE #### [facility] [address] [place] [address] Sunshinevinita Carlos Albumin/Globulin [Mass ratio] 0.8 {ratio} Normal [facility] Comment on above: Performed By: #### T CANDE, CMP, LIPA, JANINE #### [facility] [address] [place] [address] Sunshine Breanna ALP [Catalytic activity/Vol] 64 U/L Normal 38-126 [facility] Comment on above: Performed By: #### T CANDE, CMP, LIPA, JANINE #### [facility] [address] [place] [address] Sunshine Breanna ALT [Catalytic activity/Vol] 12 U/L Normal 9-52 [facility] Comment on above: Performed By: #### T CANDE, CMP, LIPA, AJNINE #### [facility] [address] [place] [address] Sunshine Breanna Anion gap [Moles/Vol] 14.9 mmol/L Normal [facility] Comment on above: Performed By: #### T CANDE, CMP, LIPA, JANINE #### [facility] [address] [place] [address] Sunshine Breanna AST [Catalytic activity/Vol] 9 U/L Critically low 14-36 [facility] Comment on above: Performed By: #### T CANDE, CMP, LIPA, JANINE #### [facility] [address] [place] [address] Sunshine Breanna Bilirubin [Mass/Vol] 0.2 mg/dL Normal 0.2-1.3 [facility] Comment on above: Performed By: #### T CANDE, CMP, LIPA, JANINE #### [facility] [address] [place] [address] Sunshine Breanna Calcium [Mass/Vol] 8.9 mg/dL Normal 8.4-10.2 [facility] Comment on above: Performed By: #### T CANDE, CMP, LIPA, JANINE #### [facility] [address] [place] [address] Sunshine Breanna Chloride [Moles/Vol] 108 mmol/L Critically high 98-107 [facility] Comment on above: Performed By: #### T CANDE, CMP, LIPA, JANINE #### [facility] [address] [place] [address] Sunshine Breanna CO2 [Moles/Vol] 23.8 mmol/L Normal 22.0-30.0 [facility] Comment on above: Performed By: #### T CANDE, CMP, LIPA, JANINE #### [facility] [address] [place] [address] Sunshine Breanna Creatinine [Mass/Vol] 0.81 mg/dL Normal 0.52-1.04 [facility] Comment on above: Performed By: #### T CANDE, CMP, LIPA, JANINE #### [facility] [address] [place] [address] Sunshine Breanna EGFR-AF TAJIK >60 Normal >=60 [facility] Comment on above: Performed By: #### T CANDE, CMP, LIPA, JANINE #### [facility] [address] [place] [address] Sunshine Breanna EGFR-NON AF TAJIK >60 Normal >=60 [facility] Comment on above: Performed By: #### T CANDE, CMP, LIPA, JANINE #### [facility] [address] [place] [address] Sunshine Breanna Globulin (S) [Mass/Vol] 4.4 g/dL Normal [facility] Comment on above: Performed By: #### T CANDE, CMP, LIPA, JANINE #### [facility] [address] [place] [address] Sunshine Breanna Glucose [Mass/Vol] 92 mg/dL Normal 74-106 [facility] Comment on above: Performed By: #### T CANDE, CMP, LIPA, JANINE #### [facility] [address] [place] [address] Sunshine Breanna Potassium [Moles/Vol] 3.7 mmol/L Normal 3.4-5.0 [facility] Comment on above: Performed By: #### T CANDE, CMP, LIPA, JANINE #### [facility] [address] [place] [address] Sunshine Breanna Protein [Mass/Vol] 7.9 g/dL Normal 6.1-8.2 [facility] Comment on above: Performed By: #### T CANDE, CMP, LIPA, JANINE #### [facility] [address] [place] [address] Sunshine Breanna Sodium [Moles/Vol] 143 mmol/L Normal 137-145 [facility] Comment on above: Performed By: #### T CANDE, CMP, LIPA, JANINE #### [facility] [address] [place] [address] Sunshine Breanna Urea nitrogen [Mass/Vol] 14.0 mg/dL Normal 7.0-17.0 [facility] Comment on above: Performed By: #### T CANDE, CMP, LIPA, JANINE #### [facility] [address] [place] [address] Sunshine Breanna Urea nitrogen/Creatinine [Mass ratio] 17.3 mg/mg Normal [facility] Comment on above: Performed By: #### T CANDE, CMP, LIPA, JANINE #### [facility] [address] [place] [address] Sunshine Breanna PREG QUANT HCGon 06-02-2020 HCG QUANT 14 mIU/mL Normal [facility] Comment on above: Performed By: #### C IVELISSE, CVDTB #### [facility] [address] [place] [address] Sunshine Breanna HCG RANGE SEE BELOW Normal [facility] Comment on above: Result Comment: 5-50 0-1 WEEK 40-300 1-2 WEEKS 100-1,000 2-3 WEEKS 500-6,000 3-4 WEEKS 5,000-200,000 1-2 MONTHS 10,000-100,000 2-3 MONTHS 3,000-50,000 2ND TRIMESTER 1,000-50,000 3RD TRIMESTER Performed By: #### C IVELISSE, CVDTB #### [facility] [address] [place] [address] Sunshine Breanna PREG QUANT HCGon 05-20-2020 HCG QUANT 13 mIU/mL Normal [facility] Comment on above: Performed By: #### C BC #### [facility] [address] [place] [address] Sunshine Breanna HCG RANGE SEE BELOW Normal [facility] Comment on above: Result Comment: 5-50 0-1 WEEK 40-300 1-2 WEEKS 100-1,000 2-3 WEEKS 500-6,000 3-4 WEEKS 5,000-200,000 1-2 MONTHS 10,000-100,000 2-3 MONTHS 3,000-50,000 2ND TRIMESTER 1,000-50,000 3RD TRIMESTER Performed By: #### C BC #### [facility] [address] [place] [address] Sunshine Breanna PREG QUANT HCGon 05-06-2020 HCG QUANT 20 mIU/mL Normal [facility] Comment on above: Performed By: #### P REGQNT #### [facility] [address] [place] [address] Sunshine Breanna HCG RANGE SEE BELOW Normal [facility] Comment on above: Result Comment: 5-50 0-1 WEEK 40-300 1-2 WEEKS 100-1,000 2-3 WEEKS 500-6,000 3-4 WEEKS 5,000-200,000 1-2 MONTHS 10,000-100,000 2-3 MONTHS 3,000-50,000 2ND TRIMESTER 1,000-50,000 3RD TRIMESTER Performed By: #### P REGQNT #### [facility] [address] [place] [address] Sunshine Breanna PREG QUANT HCGon 04-29-2020 HCG QUANT 21 mIU/mL Normal [facility] Comment on above: Performed By: #### P REGQNT #### [facility] [address] [place] [address] Sunshine Breanna HCG RANGE SEE BELOW Normal [facility] Comment on above: Result Comment: 5-50 0-1 WEEK 40-300 1-2 WEEKS 100-1,000 2-3 WEEKS 500-6,000 3-4 WEEKS 5,000-200,000 1-2 MONTHS 10,000-100,000 2-3 MONTHS 3,000-50,000 2ND TRIMESTER 1,000-50,000 3RD TRIMESTER Performed By: #### P REGQNT #### [facility] [address] [place] [address] Sunshine Breanna ABO AND RH TYPEon 04-22-2020 ABO and Rh group Nom (Bld) ABO Rh Typing O Rh Positive Normal [facility] Comment on above: Performed By: #### C BC #### [facility] [address] [place] [address] Sunshine Breanna PREG QUANT HCGon 04-22-2020 HCG QUANT 37 mIU/mL Normal [facility] Comment on above: Performed By: #### P REGQNT #### [facility] [address] [place], [place] [address] Sunshine Carlos HCG RANGE SEE BELOW Normal [facility] Comment on above: Result Comment: 5-50 0-1 WEEK 40-300 1-2 WEEKS 100-1,000 2-3 WEEKS 500-6,000 3-4 WEEKS 5,000-200,000 1-2 MONTHS 10,000-100,000 2-3 MONTHS 3,000-50,000 2ND TRIMESTER 1,000-50,000 3RD TRIMESTER Performed By: #### P REGQNT #### [facility] [address] [place], [place] [address] Sunshine Carlos ED Note-Physicianon 10-16-19 ED Note-Physician [id number]:[id number] Normal [facility] Chlam and gonorrhea: Amp, Ur ine -UHEon 01-12-2017 Chlam and gonorrhea: Amp, Urine -UHE Negative Negative THIS TEST WAS PERFORMED USING A REAL TIME PCR ASSAY. Normal [facility] Comment on above: Performed By: #### R NABU ####[address] [address] Beta HCG (Qual), Urine - MCH on 01-09-2017 HCG.beta subunit ( test) Ql (U) Positive Abnormal Negative [facility] Comment on above: Performed By: #### H CGUMD, UR1MD ####[id number] [place], [place] [address] Beta HCG, quant, S - MCHon 1 Beta HCG, quant, S - MCH 16521.0 mIU/mL Normal [facility] Comment on above: Result Comment: FEMA LE GESTATIONAL AGERESULTS <10 ARE CONSIDERED NEGATIVE4 WEEKS 4700-087619 mIU/mL5 WEEKS 3660-132556 mIU/mL6 WEEKS 50624-197829 mIU/mL7 WEEKS 82757-164605 mIU/mL8 WEEKS 75121-359019 mIU/mL9 WEEKS 01840-805082 mIU/mL10 WEEKS 43734-639158 mIU/mL11 WEEKS 6480-007185 mIU/ml12 WEEKS 6740-150512 mIU/mL13-27 WEEKS 8200-569407 mIU/mL28-40 WEEKS 2320-36743 mIU/mL Performed By: #### C BCMD, PTPTMD, TYSCMD, QHCGMD ####[address] [address] CBC, ELECTRONIC DIFF, PLATEL ET - MCHon 01-09-2017 Absolute Basophil 0.0 K/uL Normal 0.0-0.23 [facility] Comment on above: Performed By: #### C BCMD, PTPTMD, TYSCMD, QHCGMD ####[address] [address] Absolute Grans 5.9 K/uL Normal 1.8-7.7 [facility] Comment on above: Performed By: #### C BCMD, PTPTMD, TYSCMD, QHCGMD ####[address] [address] Basophils/100 WBC Auto (Bld) 0.5 % Normal 0-2 [facility] Comment on above: Performed By: #### C BCMD, PTPTMD, TYSCMD, QHCGMD ####[address] [address] Eosinophils 0.1 10*3/uL Normal 0.0-0.7 [facility] Comment on above: Performed By: #### C BCMD, PTPTMD, TYSCMD, QHCGMD ####[address] [address] Eosinophils/100 leukocytes 1.0 % Normal 0-5.0 [facility] Comment on above: Performed By: #### C BCMD, PTPTMD, TYSCMD, QHCGMD ####[address] [address] Erythrocytes (RBC) 13.8 % Normal 11.5-14.5 [facility] Comment on above: Performed By: #### C BCMD, PTPTMD, TYSCMD, QHCGMD ####[address] [address] Grans Electronic 64.6 % Normal 50-70 [facility] Comment on above: Performed By: #### C BCMD, PTPTMD, TYSCMD, QHCGMD ####[place] [place], [place] [address] Hematocrit (HCT) 34.5 % Low 35.0-45.0 [facility] Comment on above: Performed By: #### C BCMD, PTPTMD, TYSCMD, QHCGMD ####[address] [address] [place], [place] [address] Hemoglobin mass conc (Bld) 31.0 pg Normal 27.0-34.0 [facility] Comment on above: Performed By: #### C BCMD, PTPTMD, TYSCMD, QHCGMD ####[id number] [place], [place] [address] Hemoglobin mass conc (Bld) 11.7 g/dL Normal 11.7-15.5 [facility] Comment on above: Performed By: #### C BCMD, PTPTMD, TYSCMD, QHCGMD ####[address] [address] Lymphocytes 2.6 10*3/uL Normal 1.0-4.8 [facility] Comment on above: Performed By: #### C BCMD, PTPTMD, TYSCMD, QHCGMD ####[address] [address] Lymphocytes/100 leukocytes 28.7 % Normal 22.0-44.0 [facility] Comment on above: Performed By: #### C BCMD, PTPTMD, TYSCMD, QHCGMD ####[address] [address] MCH 3.78 M/uL Low 3.8-5.1 [facility] Comment on above: Performed By: #### C BCMD, PTPTMD, TYSCMD, QHCGMD ####[address] [address] MCH 9.1 K/uL Normal 4.5-11.0 [facility] Comment on above: Performed By: #### C BCMD, PTPTMD, TYSCMD, QHCGMD ####[address] [address] MCV 91.0 fL Normal 81.0-100.0 [facility] Comment on above: Performed By: #### C BCMD, PTPTMD, TYSCMD, QHCGMD ####[id number] [place], [place] [address] Monocytes 0.5 10*3/uL Normal 0.0-0.9 [facility] Comment on above: Performed By: #### C BCMD, PTPTMD, TYSCMD, QHCGMD ####[place] [address] [place], [place] [address] Monocytes/100 leukocytes 5.2 % Normal 0-7.0 [facility] Comment on above: Performed By: #### C BCMD, PTPTMD, TYSCMD, QHCGMD ####[address] [address] [place], [place] [address] Platelet mean volume (PMV) 8.3 fL Normal 7.5-11.2 [facility] Comment on above: Performed By: #### C BCMD, PTPTMD, TYSCMD, QHCGMD ####[address] [address] Platelets 281 10*3/uL Normal 150-400 [facility] Comment on above: Performed By: #### C BCMD, PTPTMD, TYSCMD, QHCGMD ####[address] [address] ED PROVIDERon 01-09-2017 [facility] CAC NOTES Normal [facility] NOTES Normal [facility] OSUHIMCACCODINGOPEDon 2016 [facility] CAC Coding OP/ED Report Normal [facility] OSUHIMCACENCSUMon 01-09-2017 [facility] CAC Encounter Summary Report Normal [facility] PT*PTT - MCHon 01-09-2017 aPTT 33 s Normal 24.6-35.9 [facility] Comment on above: Performed By: #### C BCMD, PTPTMD, TYSCMD, QHCGMD ####[address] [address] INR Coag RelTime (Bld) 1.1 {INR} Normal 0.87-1.15 [facility] Comment on above: Performed By: #### C BCMD, PTPTMD, TYSCMD, QHCGMD ####[place] [place], [place] [address] MCH 13.3 sec Normal 11.5-14.3 [facility] Comment on above: Performed By: #### C BCMD, PTPTMD, TYSCMD, QHCGMD ####[address] [place], [place] [address] TYPE [facility]EN [facility] ABO/RH(D) - [facility]: O POSITIVE ANTIBODY SCREEN - [facility]: Negative Normal [facility] Comment on above: Performed By: #### C BCMD, PTPTMD, TYSCMD, QHCGMD ####[address] [place], [place] [address] Urinalysis reflex to Cult [facility] COMMENT URINE None Normal [facility] Comment on above: Performed By: #### H CGUMD, UR1MD ####[address] [place], [place] [address] Squamous Epithelial 2+ /HPF Normal [facility] Comment on above: Performed By: #### H CGUMD, UR1MD ####[address] [place], [place] [address] Urine, bacteria in sediment Absent Normal Absent [facility] Comment on above: Performed By: #### H CGUMD, UR1MD ####[address] [place], [place] [address] Urine, erythrocytes in sediment by area 0-2 Normal 0-2 [facility] Comment on above: Performed By: #### H CGUMD, UR1MD ####[address] [place], [place] [address] Urine, leukocytes in sedmiment 0-5 Normal 0-5 [facility] Comment on above: Performed By: #### H CGUMD, UR1MD ####[address] [place], [place] [address] Bilirubin Urine Negative Normal Negative [facility] Comment on above: Performed By: #### H CGUMD, UR1MD ####[address] [place], [place] [address] Blood Urine Moderate Abnormal Negative [facility] Comment on above: Performed By: #### H CGUMD, UR1MD ####[address] [place], [place] [address] Nitrites Urine Negative Normal Negative [facility] Comment on above: Performed By: #### H CGUMD, UR1MD ####[address] [place], [place] [address] Protein Urine Negative Normal Negative [facility] Comment on above: Performed By: #### H CGUMD, UR1MD ####[address] [place], [place] [address] Specific [place] urine 1.020 Normal 1.001-1.035 [facility] Comment on above: Performed By: #### H CGUMD, UR1MD ####[address] [place], [place] [address] Urine, appearance Clear Normal Clear [facility] Comment on above: Performed By: #### H CGUMD, UR1MD ####[address] [place], [place] [address] Urine, color Yellow Normal YEL,DKYEL [facility] Comment on above: Performed By: #### H CGUMD, UR1MD ####[facility] [place], [place] [address] Urine, glucose presence Negative Normal Negative [facility] Comment on above: Performed By: #### H CGUMD, UR1MD ####[address] [place], [place] [address] Urine, ketones presence Negative Normal Negative [facility] Comment on above: Performed By: #### H CGUMD, UR1MD ####[facility] [place], [place] [address] Urine, leukocyte esterase presence Negative Normal Negative [facility] Comment on above: Performed By: #### H CGUMD, UR1MD ####[address] [place], [place] [address] Urine, pH 6.0 [pH] Normal 5.0-7.0 [facility] Comment on above: Performed By: #### H CGUMD, UR1MD ####[address] [place], [place] [address] Urobilinogen urine 0.2 EU/dL Normal <2.0 [facility] Comment on above: Performed By: #### H CGUMD, UR1MD ####[address] [place], [place] [address] Vital Signs Date Time Vital Sign Value Performing Clinician Facility 01-22-2024 13:18-0500 Body mass index (BMI) [Ratio] 36.77 kg/m2 Janine Thomas PA Work Phone: [facility] 01-22-2024 13:18-0500 Body weight 109.68 kg Janine Thomas PA Work Phone: [facility] 01-22-2024 13:18-0500 Diastolic blood pressure 72 mm[Hg] Janine Thomas PA Work Phone: [facility] 01-22-2024 13:18-0500 Systolic blood pressure 110 mm[Hg] Janine Thomas PA Work Phone: [facility] 01-15-2024 14:52-0400 Body mass index (BMI) [Ratio] 36.64 kg/m2 Janine [place] PA Work Phone: [facility] 01-15-2024 14:52-0400 Body weight 109.32 kg Janine [place] PA Work Phone: [facility] 01-15-2024 14:52-0400 Diastolic blood pressure 74 mm[Hg] Janine Thomas PA Work Phone: [facility] 01-15-2024 14:52-0400 Systolic blood pressure 118 mm[Hg] Janine [place] PA Work Phone: [facility] 01-01-2024 13:26-0400 Body mass index (BMI) [Ratio] 35.88 kg/m2 Janine [place] PA Work Phone: [facility] 01-01-2024 13:26-0400 Body weight 107.05 kg Janine Thomas PA Work Phone: [facility] 01-01-2024 13:26-0400 Diastolic blood pressure 76 mm[Hg] Janine [place] PA Work Phone: [facility] 01-01-2024 13:26-0400 Systolic blood pressure 118 mm[Hg] Janine Thomas PA Work Phone: [facility] 12-18-2023 [...] Body height 172.72 cm Arminda Holt Other [facility] Other 03-29-2021 11:15-0500 Body mass index (BMI) [Ratio] 36.49 kg/m2 Arminda Holt Other [facility] Other 03-29-2021 11:15-0500 Body temperature 97 [degF] Arminda Holt Other [facility] Other 03-29-2021 11:15-0500 Body weight 108.86 kg Arminda Holt Other [facility] Other 03-29-2021 11:15-0500 SaO2% (BldA) [Mass fraction] 99 % Arminda Holt Other [facility] Other Encounters Encounter Date Encounter Type Care Provider Facility Start: 01-22-2024 End: 01-22-2024 Ruiz SEVILLA Work Phone: [facility] Start: 01-22-2024 End: 01-22-2024 Ruiz SEVILLA Work Phone: [facility] Start: 01-22-2024 End: 01-22-2024 ambulatory JANINE GUZMAN Not Available Start: 01-22-2024 End: 01-22-2024 flow sheet Janine SEVILLA Work Phone: [facility] Comment on above: Third trimester preg kianna; 35 weeks gestation of Start: 01-17-2024 End: 01-17-2024 ambulatory [facility] Start: 01-15-2024 End: 01-15-2024 ambulatory JANINE GUZMAN Not Available Start: 01-15-2024 End: 01-15-2024 flow sheet Janine SEVILLA Work Phone: [facility] Comment on above: Third trimester preg kianna; 34 weeks gestation of ; H/O: iron deficiency anemia Start: 01-15-2024 End: 01-15-2024 Bamboo flowsheet Janine SEVILLA Work Phone: [facility] Start: 01-15-2024 End: 01-15-2024 Bamboo flowsheet Janine SEVILLA Work Phone: [facility] Start: 01-15-2024 End: 01-15-2024 Clinisync Result Encounter Janine SEVILLA Work Phone: [facility] External Department Unsolicited Start: 01-01-2024 End: 01-01-2024 Bamboo flowsheet Janine SEVILLA Work Phone: [facility] Start: 01-01-2024 End: 01-01-2024 Bamboo flowsheet Janine SEVILLA Work Phone: [facility] Start: 01-01-2024 End: 01-01-2024 ambulatory JANINE GUZMAN Not Available Start: 01-01-2024 End: 01-01-2024 flow sheet Janine SEVILLA Work Phone: [facility] Comment on above: Third trimester preg kianna; 32 weeks gestation of Start: 12-19-2023 End: 12-19-2023 ambulatory [facility] Start: 12-18-2023 End: 12-18-2023 ambulatory [...] Not Available Start: 11-22-2023 End: 11-22-2023 ambulatory MDITRIY [facility] Start: 11-20-2023 End: 11-20-2023 ambulatory DMITRIY RODO Not Available Start: 10-25-2023 End: 10-25-2023 ambulatory DMITRIY [facility] Start: 10-24-2023 End: 10-24-2023 ambulatory JANINE THOMAS Not Available Start: 09-24-2023 End: 09-24-2023 ambulatory DMITRIY RODO Not Available Start: 08-22-2023 End: 08-22-2023 ambulatory DMITRIY RODO Not Available Start: 07-26-2023 End: 07-26-2023 ambulatory DMITRIY RODO Not Available Start: 03-29-2021 End: 03-29-2021 ambulatory Arminda Holt Other [facility] Other Start: 03-29-2021 Office outpatient ne w 20 minutes Arminda Holt [facility] Start: 11-08-2020 End: 11-08-2020 ambulatory LISA BERGMAN Facility:[facility] Start: 08-19-2020 End: 08-20-[address] HAMMAD NIEVES Facility:[facility] Start: 08-17-2020 End: 08-17-[address] HAMMAD NIEVES Facility:[facility] Start: 06-02-2020 End: 06-03-2020 ambulatory HERBERT JUNIOR Facility:[facility] Start: 05-20-2020 End: 05-21-2020 ambulatory NONE LISTED REQUEST Facility:[facility] Start: 05-06-2020 End: 05-07-2020 ambulatory HERBERT JUNIOR Facility:[facility] Start: 04-29-2020 End: 04-30-2020 ambulatory HERBERT JUNIOR Facility:[facility] Start: 04-22-2020 End: 04-23-2020 ambulatory HERBERT PACHECO Facility:[facility] Start: 01-09-2017 End: 01-09-2017 Emergency department patient visit SELF SELF [facility] Procedures Date Procedure Procedure Detail Performing Clinician Start: 01-22-2024 Urnls dip stick/tabl et rgnt non-auto w/o micrscp Janine SEVILLA Work Phone: Start: 01-15-2024 ALL CBC WITH AUTO DIFF Janine SEVILLA Work Phone: Start: 01-15-2024 Urnls dip stick/tabl et rgnt non-auto w/o micrscp Janine SEVILLA Work Phone: Start: 01-01-2024 Urnls dip stick/tabl et rgnt non-auto w/o micrscp Janine SEVILLA Work Phone: Start: 12-18-2023 Urnls dip stick/tabl et rgnt non-auto w/o micrscp Dmitriy Rodoanna MATTHEWS Work Phone: Plan of Treatment Date Care Activity Detail Author Start: 01-22-2024 End: 01-21-2025 Strep B DNA probe, amplification Strep B DNA probe, amplification Lab Routine Third trimester Expected: 01/22/2024 (Approximate), Expires: 01/21/2025 [facility] Work Phone: Comment on above: Expected: 01/22/2024 (Approximate), Expires: 01/21/2025 Start: 01-22-2024 End: 01-22-2024 Patient encounter procedure 01/22/2024 1:00 PM EST Routine [facility] [address] [place] [id number] Janine Guzman, PA [address] [place], [place] [address] [facility] Start: 01-15-2024 End: 01-15-2024 Patient encounter procedure 01/15/2024 2:50 PM EDT Routine [facility] [address] [id number] Janine Guzman PA [address] [place], [place] [address] [facility] Start: 01-01-2024 End: 01-01-2024 Patient encounter procedure 01/01/2024 1:00 PM EDT Routine [facility] [address] [place] [address] Janine Guzman, PA [address] [place], [place] [id number] [facility] Start: 12-18-2023 End: 12-17-2024 US biophysical profile w non stress test US biophysical profile w non stress test Imaging Routine H/O placenta previa Expected: 12/18/2023 (Approximate), Expires: 12/17/2024 [facility] Work Phone: Comment on above: Expected: 12/18/2023 (Approximate), Expires: 12/17/2024 CBC W Auto Different ial panel - Blood CBC and differential Lab Routine H/O: iron deficiency anemia Ordered: 01/15/2024 [facility] Work Phone: Comment on above: Ordered: 01/15/2024 Payers Date Payer Category Payer [facility] BCBS [id number] 2022 Unknown BCBS BCBS xxxxxx [id number] 2022-Present [phone] [address] [place] [address] [id number] 2022 Unknown [id number] 2017 Unknown [id number] 1989 Unknown [id number] 2.16.840.1.256586.3.579. 2.593 1989 Unknown [id number] 2.16.840.1.779524.3.579. 2.593 1989 Unknown [id number] 2.16.840.1.332510.3.579. 2.593 1989 Unknown [id number] 2.16.840.1.021628.3.579. 2.593 1989 Unknown [id number] 2.16.840.1.127630.3.579. 2.593 1989 Unknown [id number] 2.16.840.1.047618.3.579. 2.593 1989 Unknown [id number] 2.16.840.1.512195.3.579. 2.593 1989 Unknown [id number] 2.16.840.1.492899.3.579. 2.593 1989 Unknown [id number] 2.16.840.1.520889.3.579. 2.1286 1989 Unknown [id number] 2.16.840.1.309105.3.579. 2.1286 1989 Unknown [id number] 2.16.840.1.322091.3.579. 2.1286 1989 Unknown [id number] 2.16.840.1.886002.3.579. 2.1285 1989 Unknown [id number] 2.16.840.1.170361.3.579. 2.1285 1989 Unknown [id number] 2.16.840.1.616232.3.579. 2.9 1989 Unknown [id number] 2.16.840.1.603943.3.579. 2.1258 1989 Unknown [id number] 2.16.840.1.559492.3.579. 2.9 1989 Unknown [id number] 2.16.840.1.759615.3.579. 2.1258 1989 Unknown [id number] 2.16.840.1.153612.3.579. 2.1258 1989 Unknown [id number] 2.16.840.1.269580.3.579. 2.1258 1989 Unknown [id number] 2.16.840.1.133309.3.579. 2.9 1989 Unknown [id number] 2.16.840.1.267533.3.579. 2.1258 1989 Unknown [id number] 2.16.840.1.311219.3.579. 2.1258 1989 Unknown [id number] 2.16.840.1.385974.3.579. 2.9 1959 Private Health Insurance [id number] Self-pay [id number] Unknown [id number] 2.16.840.1.534930.19 Social History Date Type Detail Facility Start: 08-22-2023 Sex Assigned At [facility] Other Start: 08-22-2023 End: 01-01-2024 Tobacco smoking status NHIS Ex-smoker [facility] Start: 08-18-2015 End: 09-19-2014 History of tobacco use Current smoker [facility] Start: 08-18-2015 End: 09-19-2014 History of tobacco use Cigarette Smoker [facility] Start: 08-22-2023 End: 01-22-2024 Cigarettes smoked current (pack per day) - Reported 0.5 [facility] Start: 08-22-2023 End: 01-01-2024 Tobacco use and exposure Smokeless tobacco non-user [facility] Start: 12-04-2023 End: 01-22-2024 Alcoholic beverage intake Ex-drinker (finding) [facility] Start: 05-30-2023 [facility] Start: 1990 Sex assigned at Not on file [facility] Start: 07-26-2023 Gender identity Identifies as female gender (finding) [facility] Start: 07-26-2023 Sexual orientation Heterosexual (finding) [facility] History of Present illness Narrative 01-22-2024 DI Serna - 01/22/2024 1:00 PM EST Note Date & Type Note Facility 01-22-2024 History of Presen t illness Narrative Reason for Appointment: Patient ID: Kristin Grigsby is a 33 y.o. female who presents for Routine Visit Patient presents today for Return OB appointment. MEDICATIONS Current Outpatient Medications Medication Instructions Iron Carbonyl-Vitamin C-FOS (CHEWABLE IRON PO) Take by mouth iron polysaccharides (PROFE) 391.3 mg, Oral, Daily omeprazole (PRILOSEC) 20 mg, Oral, Daily before breakfast, Do not crush or chew. ondansetron ODT (Zofran-ODT) 4 MG disintegrating tablet DISSOLVE 1 TABLET IN MOUTH EVERY 6 HOURS NEEDED FOR NAUSEA OR FOR VOMITING MV-Min-Fe Fum-FA-DHA ( 1 PO) 1 each, Daily valACYclovir (VALTREX) 500 mg, Oral, Daily [...] Exam Constitutional: Appearance: Normal appearance. She is well-developed and normal weight. HENT: Head: Normocephalic. Cardiovascular: Rate and Rhythm: Normal rate and regular rhythm. Pulses: Normal pulses. Pulmonary: Effort: Pulmonary effort is normal. Breath sounds: Normal breath sounds. Abdominal: General: Bowel sounds are normal. There is no distension. Palpations: Abdomen is soft. Tenderness: There is no abdominal tenderness. There is no guarding or rebound. Musculoskeletal: General: No swelling. Normal range of motion. Right lower leg: No edema. Left lower leg: No edema. Neurological: General: No focal deficit present. Mental Status: She is alert and oriented to person, place, and time. Skin: General: Skin is warm and dry. Psychiatric: Mood and Affect: Mood normal. Behavior: Behavior normal. Thought Content: Thought content normal. Judgment: Judgment normal. Vitals and nursing note reviewed. Exam conducted with a collections and archives director present. Vitals: Estimated body mass index is 36.77 kg/m as calculated from the following: Height as of 02/16/21: 5' 8 . Weight as of this encounter: 241 lb 12.8 oz. BP: 110/72 Patient's last menstrual period was 05/22/2023. ASSESSMENT & PLAN ICD-10-CM 1. Third trimester Z34.93 POCT urinalysis dipstick manually resulted Strep B DNA probe, amplification 2. 35 weeks gestation of Z3A.35 POCT urinalysis dipstick manually resulted Patient is doing well but has complaints of being tired and having maternal discomfort due to . Patient verbalized frequent movement and was instructed to perform kick counts three times per day. labor precautions were given, LARC consent was signed/declined, and GBS was obtained. Orders Placed This Encounter Procedures Strep B DNA probe, amplification POCT urinalysis dipstick manually resulted Follow Up: Patient is to return to office in 1 week for routine OB appointment Documented by Carine Ybarra LPN on behalf of: DI Serna documented in this encounter [facility] History of Present illness Narrative 01-15-2024 [...] reviewed, and patient is to proceed to [facility] on her scheduled day. Orders Placed [...] of Present illness Narrative 12-18-2023 Breanna Cisneros, SURVEYOR HELPER ROD - 12/18/2023 2:50 PM EDT Note Date [...] nursing note reviewed. Exam conducted with a collections and archives director present. Vitals: Estimated body mass index is [...] Dmitriy Koehler DO documented in this encounter [facility] Evaluation note 03-29-2021 Note Date & [...] Patient care instructions given in writting by [facility] At Home document. [facility] Other Evaluation note Note Date & Type Note Facility Evaluation note Diagnosis Third trimester state, incidental 30 weeks gestation of H/O placenta previa documented in this encounter [facility] Evaluation note Note Date & Type Note Facility Evaluation note Diagnosis Third trimester state, incidental 32 weeks gestation of documented in this encounter [facility] Evaluation note Note Date & Type Note Facility Evaluation note Diagnosis Third trimester state, incidental 34 weeks gestation of H/O: iron deficiency anemia Personal history of diseases of blood and blood-forming organs documented in this encounter [facility] Evaluation note Note Date & Type Note Facility Evaluation note Diagnosis Third trimester state, incidental 35 weeks gestation of documented in this encounter [...] section and content) DATE CREATED AUTHOR 09/11/2017 [facility] DATE CREATED AUTHOR AUTHOR'S ORGANIZ ATION 10/18/2019 [facility] DATE CREATED AUTHOR AUTHOR'S ORGANIZ ATION 11/24/2020 [facility] DATE CREATED AUTHOR AUTHOR'S ORGANIZ ATION 04/08/2021 [facility] DATE CREATED AUTHOR AUTHOR'S ORGANIZ ATION 04/18/2021 [facility] DATE CREATED AUTHOR AUTHOR'S ORGANIZ ATION 06/24/2021 [facility] DATE CREATED AUTHOR AUTHOR'S ORGANIZ ATION 12/21/2023 [facility] DATE CREATED AUTHOR AUTHOR'S ORGANIZ ATION 01/19/2024 [facility] DATE CREATED AUTHOR AUTHOR'S ORGANIZ ATION 01/24/2024 [facility] EPIC REASON FOR VISIT [...] BE BASED ON THE PRIMARY CLINICAL RECORDS. [facility]. provides no warranty or guarantee of the accuracy or completeness of information in this document.
--- NOTE | 2024-01-24 13:11 | US_ITS ---
[address] [address] Patient Name: MATTY HOLLEY MRN: [facility]:[id number] date: 1990 Sex: F Assigned Patient Location: [facility] Current Patient Location: Accession/Order Number: [id number] Exam Date: 01/24/2024 13:15 Report Date: 01/25/2024 05:44 At the request of: DMITRIY BOWIE Procedure: US OB BPP w non-stress EXAMINATION: US OB BPP w non-stress HISTORY:H/O PLACENTA PREVIA Z87.59 COMPARISON: Ultrasound OB biophysical 01/17/2024 TECHNIQUE: Ultrasound biophysical profile was performed in the radiology department. BREATHING MOVEMENTS: 2 GROSS BODY MOVEMENTS: 2 TONE: 2 QUALITATIVE AMNIOTIC FLUID VOLUME: 2 PRESENTATION: CEPHALIC HEART RATE: 150 bpm AMNIOTIC FLUID VOLUME: 19.63 cm GESTATIONAL AGE: 36 weeks 1 day US/US OB BPP w non-stress IMPRESSION: Total biophysical profile score: 8 Electronically authenticated by: DANG MENDOZA Date: 01/25/2024 05:44
[2024-01-24 14:07] VITALS: BP 117/75; PULSE 81
== END 2024-01-24 14:55 | disposition home or self-care (01) ==
LOC: US 07:04 → FBC 13:00
PROVIDERS: Visit Provider Obstetrics & Gynecology
DX: O26.893 Other specified pregnancy related conditions, third trimester (principal); Z87.59 Personal history of other complications of pregnancy, childbirth and the puerperium; Z3A.36 36 weeks gestation of pregnancy
CPT/HCPCS: 76818

== ENCOUNTER 2024-01-28 10:03 | Inpatient (IN) | payer BC, SELFPAY ==
[2024-01-28] VITALS (28 sets, daily range): BP systolic 91–123; BP diastolic 51–78; PULSE 72–96; TEMP 36.1–36.8; O2SAT 95–100
[2024-01-28] MEDS: 0.9 % SODIUM CHLORIDE 1,000 ML 1000 ML IV ×2 (11:09→11:42)
[2024-01-28] MEDS: FAMOTIDINE/PF 20 MG/2 ML VIAL IV (11:15)
[2024-01-28] MEDS: CITRIC ACID/SODIUM CITRATE 30 ML SOLUTION ORACIT SHOHL'S SOLN PO (11:15)
[2024-01-28] MEDS: METOCLOPRAMIDE HCL 10 MG/2 ML VIAL IVP (11:15)
[2024-01-28 11:30] LABS: Basophils Absolute Auto 0.1 10^3/uL (0.0-0.1); Basophils Percent Auto 0.7 % (0.2-2.0); Eosinophils Absolute Auto 0.2 10^3/uL (0.0-0.7); Eosinophils Percent Auto 1.8 % (0.9-7.0); Hematocrit 29.7 % (36.0-48.0); Hemoglobin 9.9 g/dL (12.0-16.0); Immature Granulocytes Abs Auto 0.07 10^3/uL (0.00-0.03); Immature Granulocytes Pct Auto 0.7 % (0.0-0.5); Lymphocytes Percent Auto 18.5 % (20.5-60.0); Mean Corpuscular HGB Conc 33.3 g/dL (29.9-35.2); Mean Corpuscular Hemoglobin 31.4 pg (26.7-34.0); Mean Corpuscular Volume 94.3 fL (81.0-99.0); Monocytes Absolute Auto 0.6 10^3/uL (0.3-0.8); Monocytes Percent Auto 5.4 % (1.7-12.0); Neutrophils Absolute Auto 7.8 10^3/uL (1.4-6.5); Neutrophils Percent Auto 72.9 % (43.0-75.0); Platelet Count 269 10^3/uL (150-450); Red Blood Count 3.15 10^6/uL (4.20-5.40); Red Cell Distribution Width 12.7 % (11.0-15.0); White Blood Count 10.7 10^3/uL (4.0-11.0)
[2024-01-28 11:47] LABS: Amphetamine Screen Urine NEGATIVE (NEGATIVE); Barbiturates Screen Urine NEGATIVE (NEGATIVE); Benzodiazepines Screen Urine NEGATIVE (NEGATIVE); Buprenorphine Screen Urine NEGATIVE (NEGATIVE); Cannabinoid Screen Urine POSITIVE (NEGATIVE); Cocaine Screen Urine NEGATIVE (NEGATIVE); Methadone Screen Urine NEGATIVE (NEGATIVE); Methamphetamines Screen Urine NEGATIVE (NEGATIVE); Opiate Screen Urine NEGATIVE (NEGATIVE); Oxycodone Screen Urine NEGATIVE (NEGATIVE); Phencyclidine Screen Urine NEGATIVE (NEGATIVE); Tricyclic Antidepressant Urine NEGATIVE (NEGATIVE)
[2024-01-28] MEDS: CEFAZOLIN SODIUM/DEXTROSE,ISO 2 GM/50 ML PIGGYBACK IV ×2 (12:06→20:11)
--- NOTE | 2024-01-28 13:14 | PM.ONB ---
Brief Operative Note Date of procedure: 01/28/24 Pre-op diagnosis general: iup at 36 6/7wks, previous classical section Post-op diagnosis: same as pre-op Procedure: NAME OF PROCEDURE: [ section with bilateral salpingectomy ] PROCEDURE: Patient was taken back to the Operating Room where she was given a spinal anesthesia with Duramorph without difficulty. She was prepped and draped in the normal sterile fashion. A Pfannenstiel skin incision was then made 2?cm above the symphysis pubis and carried down to underlying rectus fascia using a Bovie. The fascia was incised in the midline and extended laterally using Ervin scissors. Two Shari clamps were placed on the superior aspect of the fascia and dissected off the underlying rectus muscles. The same was performed on the inferior aspect as well. The muscles were then in the midline. Peritoneum was identified and entered bluntly. The peritoneum was then extended superiorly and inferiorly with good visualization of the bladder. The bladder blade was inserted. Vesicouterine peritoneum was identified, tented up, and entered with Metzenbaum scissors. A bladder flap was then created digitally. The bladder blade was reinserted. A low transverse incision was made on the patient's uterus and extended laterally digitally. The was then delivered atraumatically after the bladder blade was removed in the cephalic position. The cord was clamped and cut. Cord blood was obtained. The was handed off to awaiting team. The patient's placenta was spontaneously delivered. The uterus was then exteriorized. The uterus was cleared of all clots and debris. The bladder blade was reinserted. The patient's uterine incision was closed using #0 Vicryl in a running lock fashion. Excellent hemostasis was assured.? The rt tube was identified and grasped with babock, the ligasure was used to transect and ligate the tube in its entirity, this was done on the contralateral side as well. The uterus was then returned to the patient's abdomen. The patient's abdomen was copiously irrigated using warm saline. Peritoneal gutters were cleared of all clots and debris. Again excellent hemostasis was assured. The patient's fascia was closed using #0 Vicryl in a running fashion. The patient's skin was closed using 4-0 Vicryl subcuticularly. The patient tolerated the procedure well. Sponge, lap, and needle counts were correct x2. The patient was taken to the Recovery Room in stable condition. Anesthesia: spinal Surgeon: John Koehler Oncology Social Worker: Shruthi Tafoya Estimated blood loss (mL): 700 Pathology: other (placenta) Condition: stable Disposition: floor Urinary Catheter Management Urinary Catheter Management Urethral: Cath placed during this visit: no
--- NOTE | 2024-01-28 13:15 | PM.OBPRCCS ---
Procedure Pre-op/Post-op diagnoses: Pre-Op/Post-Op Diagnoses Operation Date: 01/28/24 12:00 <No data on this case meets the specified criteria> Procedure: Procedures Operation Date: 01/28/24 12:00 Actual Procedure Side Surgeon p Repeat with Bilateral Salpingectomy Bilateral John Koehler DO Psychiatric Clinical Nurse Specialist: Shruthi Tafoya Estimated blood loss (mL): 700 Disposition: floor Anesthesia type: Spinal
[2024-01-28] MEDS: OXYTOCIN/0.9 % SODIUM CHLORIDE 20 UNITS/1,000 ML PLAST..BAG 125 UNIT IV (13:50)
[2024-01-28] MEDS: KETOROLAC TROMETHAMINE 30 MG/ML VIAL IVP ×2 (15:12→21:09)
[2024-01-28] MEDS: ONDANSETRON PF 4 MG/2 ML VIAL IV (15:13)
[2024-01-29 00:01] VITALS: BP 104/61; TEMP 36.7; O2SAT 99
[2024-01-29 03:57] VITALS: BP 104/64; O2SAT 98
[2024-01-29 03:58] VITALS: O2SAT 100
[2024-01-29] MEDS: KETOROLAC TROMETHAMINE 30 MG/ML VIAL IVP ×4 (04:00→22:05)
[2024-01-29 05:03] VITALS: TEMP 36.6
[2024-01-29 07:13] LABS: Basophils Absolute Auto 0.1 10^3/uL (0.0-0.1); Basophils Percent Auto 0.5 % (0.2-2.0); Eosinophils Absolute Auto 0.1 10^3/uL (0.0-0.7); Eosinophils Percent Auto 1.1 % (0.9-7.0); Hematocrit 26.1 % (36.0-48.0); Hemoglobin 8.5 g/dL (12.0-16.0); Immature Granulocytes Abs Auto 0.08 10^3/uL (0.00-0.03); Immature Granulocytes Pct Auto 0.7 % (0.0-0.5); Lymphocytes Absolute Auto 2.7 10^3/uL (1.2-3.8); Lymphocytes Percent Auto 22.3 % (20.5-60.0); Mean Corpuscular HGB Conc 32.6 g/dL (29.9-35.2); Mean Corpuscular Hemoglobin 31.7 pg (26.7-34.0); Mean Corpuscular Volume 97.4 fL (81.0-99.0); Mean Platelet Volume 10.2 fL (9.5-13.5); Monocytes Absolute Auto 0.8 10^3/uL (0.3-0.8); Monocytes Percent Auto 7.1 % (1.7-12.0); Neutrophils Absolute Auto 8.1 10^3/uL (1.4-6.5); Neutrophils Percent Auto 68.3 % (43.0-75.0); Platelet Count 240 10^3/uL (150-450); Red Blood Count 2.68 10^6/uL (4.20-5.40); Red Cell Distribution Width 12.8 % (11.0-15.0); White Blood Count 11.9 10^3/uL (4.0-11.0)
--- NOTE | 2024-01-29 08:39 | P.OBPN_ITS ---
OB - PN: Subj Subjective Patient comments: no complaints and pain well controlled [place] status: doing well Exam Constitutional Vital Signs, click to edit/add: Last Vital Signs Temp 97.9 F 01/29/24 05:03 Pulse 90 01/28/24 15:34 Resp 27 H 01/28/24 15:34 BP 104/61 01/29/24 00:01 Pulse Ox 99 01/29/24 00:01 O2 Del Method Room Air 01/28/24 20:00 Documenting provider has reviewed patient's vital signs: yes Common normals: no apparent distress Respiratory Common normals: clear to auscultation bilaterally Cardio Common normals: regular rate and regular rhythm GI Common normals: Normal to inspection, nondistended, normoactive bowel sounds present Extremity Common normals: no calf tenderness Results Labs Labs: Short CBC 01/28/24 01/29/24 Range/Units 11:00 06:42 WBC 10.7 11.9 H (4.0-11.0) 10^3/uL Hgb 9.9 L 8.5 L (12.0-16.0) g/dL Hct 29.7 L 26.1 L (36.0-48.0) % Plt Count 269 240 (150-450) 10^3/uL Urinary Catheter Management Urinary Catheter Management Urethral: Cath placed during this visit: no OB - PN: A/P Plan - day: 1 Plan: routine postop care Time Spent with Patient Time: Total time spent is greater than 50% in coordination of care (as documented) at patient's floor/unit and/or counseling patient: Total time spent with greater than 50% in coordination of care (as documented) at patient's floor/unit and/or counseling patient: less than 15 minutes
[2024-01-29 08:43] VITALS: BP 111/90; PULSE 87; TEMP 36.4; O2SAT 100
[2024-01-29] MEDS: DOCUSATE SODIUM 100 MG CAPSULE PO ×2 (08:48→20:33)
[2024-01-29] MEDS: SIMETHICONE 80 MG TAB.CHEW PO ×2 (16:30→22:05)
[2024-01-29 16:34] VITALS: BP 126/73; PULSE 87; TEMP 36.6; O2SAT 99
[2024-01-29] MEDS: OXYCODONE HCL/ACETAMINOPHEN 5MG/325MG 2 TAB PO (20:34)
[2024-01-30] MEDS: OXYCODONE HCL/ACETAMINOPHEN 5MG/325MG 2 TAB PO ×2 (00:14→04:16)
[2024-01-30 00:15] VITALS: BP 104/53
[2024-01-30 00:17] VITALS: TEMP 36.6
[2024-01-30] MEDS: KETOROLAC TROMETHAMINE 30 MG/ML VIAL IVP ×2 (04:16→12:16)
[2024-01-30] MEDS: SIMETHICONE 80 MG TAB.CHEW PO ×2 (04:17→22:00)
[2024-01-30 07:18] VITALS: BP 124/73; PULSE 88; TEMP 36.6
[2024-01-30] MEDS: DOCUSATE SODIUM 100 MG CAPSULE PO ×2 (09:23→22:00)
[2024-01-30] MEDS: ONDANSETRON PF 4 MG/2 ML VIAL IV (09:41)
--- NOTE | 2024-01-30 10:52 | P.OBPN_ITS ---
OB - PN: Subj Subjective Patient comments: no complaints and pain well controlled [place] status: doing well Exam Constitutional Vital Signs, click to edit/add: Last Vital Signs Temp 97.8 F 01/30/24 07:18 Pulse 88 01/30/24 07:18 Resp 18 01/30/24 07:20 BP 124/73 01/30/24 07:18 Pulse Ox 99 01/29/24 16:34 O2 Del Method Room Air 01/30/24 00:17 Documenting provider has reviewed patient's vital signs: yes Common normals: no apparent distress Respiratory Common normals: normal respiratory effort and clear to auscultation bilaterally Cardio Common normals: regular rate and regular rhythm GI Common normals: Normal to inspection, nondistended, normoactive bowel sounds present Extremity Common normals: no calf tenderness Urinary Catheter Management Urinary Catheter Management Urethral: Cath placed during this visit: no OB - PN: A/P Plan - day: 2 Plan: routine postop care Time Spent with Patient Time: Total time spent is greater than 50% in coordination of care (as documented) at patient's floor/unit and/or counseling patient: Total time spent with greater than 50% in coordination of care (as documented) at patient's floor/unit and/or counseling patient: less than 15 minutes
[2024-01-30] MEDS: ENOXAPARIN SODIUM 40 MG/0.4 ML SYRINGE SUBQ (12:15)
[2024-01-30 17:35] VITALS: BP 145/88; PULSE 90
[2024-01-30] MEDS: IBUPROFEN 400 MG TABLET 800 MG PO (17:37)
[2024-01-30 17:44] VITALS: BP 134/82; PULSE 90; TEMP 36.8
[2024-01-31] MEDS: IBUPROFEN 400 MG TABLET 800 MG PO ×2 (01:12→10:06)
[2024-01-31 01:14] VITALS: BP 114/75; PULSE 78; TEMP 36.1
--- NOTE | 2024-01-31 08:19 | P.OBPN_ITS ---
OB - PN: Subj Subjective Patient comments: no complaints and pain well controlled [place] status: doing well Exam Constitutional Vital Signs, click to edit/add: Last Vital Signs Temp 97.0 F L 01/31/24 01:14 Pulse 78 01/31/24 01:14 Resp 16 01/31/24 01:13 BP 114/75 01/31/24 01:14 Pulse Ox 99 01/29/24 16:34 O2 Del Method Room Air 01/31/24 01:13 Documenting provider has reviewed patient's vital signs: yes Common normals: no apparent distress Respiratory Common normals: clear to auscultation bilaterally Cardio Common normals: regular rate and regular rhythm GI Common normals: Normal to inspection, nondistended, normoactive bowel sounds present Extremity Common normals: no clubbing, cyanosis or edema Urinary Catheter Management Urinary Catheter Management Urethral: Cath placed during this visit: no OB - PN: A/P Plan - day: 3 Plan: routine postop care, discharge home and other (fu 6wks) Time Spent with Patient Time: Total time spent is greater than 50% in coordination of care (as documented) at patient's floor/unit and/or counseling patient: Total time spent with greater than 50% in coordination of care (as documented) at patient's floor/unit and/or counseling patient: less than 15 minutes
[2024-01-31 08:35] VITALS: TEMP 36.7
[2024-01-31] MEDS: DOCUSATE SODIUM 100 MG CAPSULE PO (08:35)
[2024-01-31 08:38] VITALS: BP 138/89; PULSE 89
--- NOTE | 2024-01-31 15:05 | SWNOTE1 ---
SW received call from nurse in [facility] and pt did discharge this morning. SW to call pt. Nursing had no concerns at this time, provided great care for baby, loving family. SW called and spoke with pt over the phone. Pt does have everything she needs at home for baby. Her and father of baby and the other children live in the home. Her oldest is 17 and youngest, besides baby, is 2. Pt voiced they have good support at home as well. SW asked about post- depression and pt voiced she did not go through with other children. SW asked why she used marijuana. Pt stated that she did it to help with her PTSD because she lost her sister traumatically and this helped. She did have her medical marijuana card, but thinks it did . She does not plan on using when she is home. Advised to not do it in front of children. SW did ask how she was feeling. Pt voiced she is feeling well at this time and baby is doing well. No further concerns. SW is mandated nutrition services aide. Report called to [facility] CPS due to positive THC screen on admission. HIPAA form filld out and sent to
[2024-02-03 00:06] LABS: Cannabinoid Positive (.); Carboxy THC Conf, MS, UR 70 ng/mL (Cutoff=10)
== END 2024-01-31 11:30 | disposition home or self-care (01) | DRG 784 ==
PROVIDERS: Admitting Provider Obstetrics & Gynecology; Visit Provider Obstetrics & Gynecology
PROC: 10D00Z1 Extraction of Products of Conception, Low, Open Approach (ICD-10-PCS; CPT 59514; principal; 2024-01-28 12:00)
DX: O34.212 Maternal care for vertical scar from previous cesarean delivery (principal); O98.32 Other infections with a predominantly sexual mode of transmission complicating childbirth; O99.324 Drug use complicating childbirth; Z3A.36 36 weeks gestation of pregnancy; Z37.0 Single live birth; Z30.2 Encounter for sterilization; F12.90 Cannabis use, unspecified, uncomplicated; A60.00 Herpesviral infection of urogenital system, unspecified; Z87.891 Personal history of nicotine dependence; Z87.59 Personal history of other complications of pregnancy, childbirth and the puerperium; Z86.2 Personal history of diseases of the blood and blood-forming organs and certain disorders involving the immune mechanism
CPT/HCPCS: 36415; 51702; 59050; 80307; 80349; 85025; 86850; 86900; 86901; 94667; 94668; J0690; J1650; J1885; J2274; J2371; J2405; J2765

== ENCOUNTER 2024-09-24 20:28 | Outpatient (REF) | payer BC, SELFPAY ==
--- OUTSIDE RECORDS SUMMARY | 2024-09-24 14:00 | XMS_ITS | Encounter Summary ---
Author Organization [facility] Address [address] [place] [address] Care Team Providers Care Merchandising Representative Name Role Phone Unavailable Primary Care Provider Unavailabl e Reason for Visit * Reason Comments Gynecologic Exam Encounter Details Date Type Department Care Team (Late st Contact Info) Description 09/24/2024 2:00 PM EDT Office Visit [facility] [address] [place] [address] John Koehler DO [address] [place] [address] Well woman exam with routine gynecological exam Social History Tobacco Use Types Packs/Day Years Used Date Smoking Tobacco: Former Cigarettes 0.5 18.1 0 08/18/2015 - 09/19/2014 Smokeless Tobacco: Never Alcohol Use Standard Drinks/Week Comments Not Currently 1 (1 standard drink = 0.6 oz pur e alcohol) Comments No Sex and Gender Information Value Date Recorded Sex Assigned at Not on file Legal Sex Female 11:14 PM EDT Gender Identity Female 07/26/2023 9:46 AM EDT Sexual Orientation Straight 07/26/2023 9: 46 AM EDT documented as of this encounter Last Filed Vital Signs Vital Sign Reading Time Taken Comments Blood Pressure 122/76 09/24/2024 2:05 PM EDT Pulse - - Temperature - - Respiratory Rate - - Oxygen Saturation - - Inhaled Oxygen Concentration - - Weight 106 kg (234 lb) 09/24/2024 2:05 PM EDT Height - - Body Mass Index 35.58 02/16/2021 12:00 PM EST documented in this encounter Progress Notes * Breanna Cisneros LPN - 09/24/2024 2:00 PM EDT Reason for Appointment: Patient ID: Kristin Grigsby is a 34 y.o. female who presents for Gynecologic Exam Patient presents today for Annual Exam. MEDICATIONS Current Outpatient Medications Medication Instructions omeprazole (PRILOSEC) 20 mg, Oral, Daily before breakfast, Do not crush or chew. ondansetron ODT (Zofran-ODT) 4 MG disintegrating tablet DISSOLVE 1 TABLET IN MOUTH EVERY 6 HOURS ASNEEDED FOR NAUSEA OR FOR VOMITING MV-Min-Fe Fum-FA-DHA ( 1 PO) 1 each, Daily ALLERGIES No Known Allergies PROBLEMS Active Ambulatory Problems Diagnosis Date Noted 6 weeks follow-up ([facility]) 03/13/2024 Post-operative state 03/13/2024 Resolved Ambulatory Problems Diagnosis Date Noted No Resolved Ambulatory Problems Past Medical History: Diagnosis Date Herpes simplex 10/2020 HISTORY PAST MEDICAL HISTORY SOCIAL HISTORY Past Medical History: Diagnosis Date Herpes simplex 10/2020 Social History Tobacco Use Smoking status: Former Current packs/day: 0.50 Average packs/day: 0.5 packs/day for 18.1 years (9.0 ttl pk-yrs) Types: Cigarettes Start date: 08/18/2015 [...] Procedure Laterality Date ABDOMINAL SURGERY 09/2020 SECTION, CLASSIC 01/28/2024 SECTION, LOW TRANSVERSE 08/19/2021 DILATION AND CURETTAGE OF UTERUS 05/2020 SALPINGECTOMY Bilateral 01/28/2024 REVIEW OF SYSTEMS Review of Systems: Review of Systems Constitutional: Negative. HENT: Negative. Eyes: Negative. Respiratory: Negative. Cardiovascular: Negative. Gastrointestinal: Negative. Genitourinary: Negative. Musculoskeletal: Negative. Skin: Negative. Neurological: Negative. All other systems reviewed and are negative. Hematological: Negative. Endocrine: Negative. Allergic/Immunologic: Negative. OBJECTIVE Objective: Physical Exam Constitutional: Appearance: Normal appearance. She is well-developed. Genitourinary: Vulva normal. Cardiovascular: Rate and Rhythm: Normal rate and [...] nursing note reviewed. Exam conducted with a department mgr present. Vitals: Estimated body mass index is 35.58 kg/m?? as calculated from the following: Height as of 02/16/21: 5' 8 . Weight as of this encounter: 234 lb. BP: 122/76 Patient's last menstrual period was 09/08/2024 (approximate). ASSESSMENT & PLAN ICD-10-CM 1. Well woman exam with routine gynecological exam Z01.419 Pap Smear HPV DNA probe, amplified Orders Placed This Encounter Procedures HPV DNA probe, amplified Annual Wellness Exam: Patient presents today for routine annual exam. Patient states she has no current complaints. Patients vitals were reviewed and within normal limits. Growth and development is noted to be appropriate for age. Menstrual history is noted to be regular with no concerns reported. No mental health concerns was expressed. Pap Smear: Speculum was inserted into the vagina and pap was obtained without difficulty. HPV testing was performed per age guideline. Patient was advised that pap results could take anywhere from 7 to 10 days to receive and our office will reach out to the patient with those once we have them. Patient can also view results via [employer]. I reinforced importance of condom use for STI prevention. Patient declined cultures to be performed with today's visit. Breast Exam: Upon examination, clinical breast exam was noted to be normal. Patient was counseled on breast self-awareness, including the importance of knowing what is normal for her own breasts and promptly reporting any changes such as new lumps, skin dimpling, nipple discharge, or pain. Screening mammogram recommended annually beginning at age 40 or earlier if risk factors are present. Discussed signs and symptoms of breast cancer and when to seek medical attention. Answered all patient questions. Contraceptive Counseling (if applicable): Patient is currently using no control at this time as a form of contraceptive. Patient does not desire control at this time. Follow Up: Patient is to return to our office in one year for annual exam unless needed otherwise. Documented by Breanna Cisneros LPN on behalf of: John Koehler DO documented in this encounter Plan of Treatment Scheduled Orders Name Type Priority Associated Diagnoses Orde r Schedule Pap Smear Pathology and Cytology Routine Well woman exam with routine gynecological exam Ordered: 09/24/2024 HPV DNA probe, amplified Microbiology Routine Well woman exam with routine gynecological exam Ordered: 09/24/2024 documented as of this encounter Visit Diagnoses Diagnosis Well woman exam with routine gynecological exam Routine gynecological examination documented in this encounter
--- OUTSIDE RECORDS SUMMARY | 2024-09-24 20:33 | XMS_ITS | Encounter Summary ---
Author Organization [facility] Address [address] [place] [address] Care Team Providers Care Medical Librarian Name Role Phone Unavailable Primary Care Provider Ronna e Encounter Details Date Type Department Care Team (Late st Contact Info) Description 10/25/2023 External Result Encounter [facility] [address] [place] [address] John Koehler DO [address] [facility] [address] Fabien Silva, [facility]11 Social History Tobacco Use Types Packs/Day Years Used Date Smoking Tobacco: Former Cigarettes 0.5 9 0 08/18/2015 - 09/19/2014 Smokeless Tobacco: Never Alcohol Use Standard Drinks/Week Comments Not Currently 1 (1 standard drink = 0.6 oz pur e alcohol) Comments Yes Sex and Gender Information Value Date Recorded Sex Assigned at Not on file Legal Sex Female 11:14 PM EDT Gender Identity Female 07/26/2023 9:46 AM EDT Sexual Orientation Straight 07/26/2023 9: 46 AM EDT documented as of this encounter Plan of Treatment Not on file documented as of this encounter Procedures Procedure Name Priority Date/Time Associated Diagnosis Comments US OB 14+ WEEKS ANATOMY SCAN 10/25/2023 2:54 PM EDT documented in this encounter Results * US OB 14+ weeks anatomy scan (10/25/2023 2:54 PM EDT) Anatomical Region Laterality Modality Body Ultrasound 10/25/2023 2:54 PM EDT Narrative 10/25/2023 2:54 PM EDT THIS EXAM WAS PERFORMED AT [facility] REPORT (Signed Final 10/25/2023 14:54) PATIENT INFO: ID #: [id number] : [birth year] (33 yrs)(F) Name: MATTY GRIGSBY Visit Date: 10/25/2023 09:26 PERFORMED BY: Attending: Constantin Chow MD Performed By: Dasia Merritt RDMS Referred By: John Frank. Address: [address] [place] [address] [place] [address] Location: [facility] SERVICE(S) PROVIDED: Comprehensive Anatomic Survey 63859 OB Transvaginal 74184 INDICATIONS: Screening for anatomic survey Z36.89 Screening for cervical length Z36.86 Obesity in , antepartum O99.210 Supervision of other high risk , O09.90 antepartum Hx of placenta previa, Prior O34.21 VITAL SIGNS: Weight (lb): 221 Height: 5'8 BMI: 33.6 EVALUATION: Num Of Fetuses: 1 Heart Rate(bpm): 127 Cardiac Activity: Present appears normal Presentation: Breech Placenta: Anterior, away from cervical os P. Cord Insertion: Central Amniotic Fluid MATILDA FV: Subjectively within normal limits BIOMETRY: BPD: 59 mm G.Age: 24w 1d 80 % OFD: 74 mm HC: 210.9 mm G.Age: 23w 1d 35 % AC: 199.2 mm G.Age: 24w 4d 83 % FL: 43.2 mm G.Age: 24w 1d 71 % HUM: 41.5 mm G.Age: 25w 1d 86 % CER: 24.8 mm G.Age: 22w 5d 53 % LV: 7.5 mm CM: 6.7 mm TIB: 37.7 mm G.Age: 24w 2d 76 % CI: 79.7 % 70 - 86 FL/HC: 20.5 % 19.2 - 20.8 HC/AC: 1.06 1.05 - 1.21 FL/BPD: 73.2 % 71 - 87 FL/AC: 21.7 % - Est. FW: 677 gm 1 lb 8 oz 90 % OB HISTORY: : 6 Term: 4 Livin GESTATIONAL AGE: LMP: 22w 2d Date: 05/22/23 DWIGHT: 02/26/24 U/S Today: 24w 0d DWIGHT: 02/14/24 Best: 23w 1d Det. By: Early DWIGHT: 02/20/24 Ultrasound (07/26/23) TARGETED ANATOMY: Central Nervous System Calvarium/Cranial V.: Appears normal Intracranial Nilam: Appears normal Cavum: Appears normal Lateral Ventricles: Appears normal Choroid Plexus: Appears normal Cereb./Vermis: Appears normal Cisterna Magna: Appears normal Midline Falx: Appears Normal Spine Cervical: Appears normal Thoracic: Appears normal Lumbar: Appears normal Sacral: Appears normal Head/Neck Face: Not well visualized Lips: Could not document Neck: Appears normal Nuchal Fold: Not evaluated d/t GA Nasal Bone: Present Palate: Could not document Profile: Appears normal Orbits/Eyes: Appears normal Mandible: Could not document Maxilla: Could not document Thorax Thoracic Contour: Appears normal Lungs: Appears normal 4 Chamber View: Not well visualized Cardiac Activity: Appears Normal Cardiac Rhythm: Normal Cardiac Situs: Appears normal Rt Outflow Tract: Not well visualized Lt Outflow Tract: Not well visualized Aortic Arch: Appears normal Ductal Arch: Not well visualized SVC: Could not document Interventr. Septum: Not well visualized Cardiac Norwood: Appears normal Diaphragm: Appears normal 3 Vessel View: Not well visualized 3 V Trachea View: Not well visualized IVC: Could not document Crossing: Not well visualized Abdomen Ventral Wall: Could not document Cord Insertion: Appears normal Situs: Appears normal Stomach: Appears normal Lt Kidney: Appears normal Rt Kidney: Appears normal Bladder: Appears normal Bowel: Appears normal Extremities Lt Humerus: Appears normal Rt Humerus: Appears normal Lt Forearm: Appears normal Rt Forearm: Appears normal Lt Hand: Not well visualized Rt Hand: Not well visualized Lt Femur: Appears normal Rt Femur: Appears normal Lt Lower Leg: Appears normal Rt Lower Leg: Appears normal Lt Foot: Appears normal Rt Foot: Appears normal Other Umbilical Cord: Appears normal Masses: None visualized Genitalia: Male Comment: PATIENT DOES NOT KNOW GENDER! CERVIX UTERUS ADNEXA: Cervix Length: 4.1 cm. Appears closed, without funnelling Uterus Gravid uterus Right Ovary Not visualized Left Ovary Not visualized Cul De Sac No fluid seen Adnexa No adnexal masses identified COMMENTS: 1. Ultrasound is not diagnostic for chromosomal abnormalities, will not detect all structural abnormalities, and is not diagnostic for genetic disorders even if multiple exams are performed during a given . 2. anatomic survey is incomplete due to position. 3. In addition to the trans abdominal approach, a trans vaginal ultrasound was also performed to optimize the visualization of the lower uterine segment and the cervix. Constantin Chow MD Electronically Signed Final Report 10/25/2023 14:54 IMPRESSION: 1. Single intrauterine with size consistent with dates. 2. Transvaginal Cervical Length = 4.1 cm. RECOMMENDATIONS: 1. Please see [facility] consultation documentation from today's encounter. 2. Patient is scheduled in 4-6 weeks to complete the anatomic survey. 3. Subsequent follow up or other follow up as clinically determined by primary OB provider unless otherwise specified by [facility]. 4. Results forwarded to ordering provider so they can follow up with the patient as necessary. Procedure Note Radiology, RadiologistMD - 10/25/2023 THIS EXAM WAS PERFORMED AT [facility] REPORT (Signed Final 10/25/2023 14:54) PATIENT INFO: ID #: [id number] : [birth year] (33 yrs)(F) Name: MATTY GRIGSBY Visit Date: 10/25/2023 09:26 PERFORMED BY: Attending: Constantin Chow MD Performed By: Dasia Merritt RDMS Referred By: John Koehler DO Ref. Address: [address] [place] [address] [place] [address] Location: [facility] SERVICE(S) PROVIDED: Comprehensive Anatomic Survey 76606 OB Transvaginal 19900 INDICATIONS: Screening for anatomic survey Z36.89 Screening for cervical length Z36.86 Obesity in , antepartum O99.210 Supervision of other high risk , O09.90 antepartum Hx of placenta previa, Prior O34.21 VITAL SIGNS: Weight (lb): 221 Height: 5'8 BMI: 33.6 EVALUATION: Num Of Fetuses: 1 Heart Rate(bpm): 127 Cardiac Activity: Present appears normal Presentation: Breech Placenta: Anterior, away from cervical os P. Cord Insertion: Central Amniotic Fluid MATILDA FV: Subjectively within normal limits BIOMETRY: BPD: 59 mm G.Age: 24w 1d 80 % OFD: 74 mm HC: 210.9 mm G.Age: 23w 1d 35 % AC: 199.2 mm G.Age: 24w 4d 83 % FL: 43.2 mm G.Age: 24w 1d 71 % HUM: 41.5 mm G.Age: 25w 1d 86 % CER: 24.8 mm G.Age: 22w 5d 53 % LV: 7.5 mm CM: 6.7 mm TIB: 37.7 mm G.Age: 24w 2d 76 % CI: 79.7 % 70 - 86 FL/HC: 20.5 % 19.2 - 20.8 HC/AC: 1.06 1.05 - 1.21 FL/BPD: 73.2 % 71 - 87 FL/AC: 21.7 % 20 - 24 Est. FW: 677 gm 1 lb 8 oz 90 % OB HISTORY: : 6 Term: 4 Livin GESTATIONAL AGE: LMP: 22w 2d Date: 05/22/23 DWIGHT: 02/26/24 U/S Today: 24w 0d DWIGHT: 02/14/24 Best: 23w 1d Det. By: Early DWIGHT: 02/20/24 Ultrasound (07/26/23) TARGETED ANATOMY: Central Nervous System Calvarium/Cranial V.: Appears normal Intracranial Nilam: Appears normal Cavum: Appears normal Lateral Ventricles: Appears normal Choroid Plexus: Appears normal Cereb./Vermis: Appears normal Cisterna Magna: Appears normal Midline Falx: Appears Normal Spine Cervical: Appears normal Thoracic: Appears normal Lumbar: Appears normal Sacral: Appears normal Head/Neck Face: Not well visualized Lips: Could not document Neck: Appears normal Nuchal Fold: Not evaluated d/t GA Nasal Bone: Present Palate: Could not document Profile: Appears normal Orbits/Eyes: Appears normal Mandible: Could not document Maxilla: Could not document Thorax Thoracic Contour: Appears normal Lungs: Appears normal 4 Chamber View: Not well visualized Cardiac Activity: Appears Normal Cardiac Rhythm: Normal Cardiac Situs: Appears normal Rt Outflow Tract: Not well visualized Lt Outflow Tract: Not well visualized Aortic Arch: Appears normal Ductal Arch: Not well visualized SVC: Could not document Interventr. Septum: Not well visualized Cardiac Norwood: Appears normal Diaphragm: Appears normal 3 Vessel View: Not well visualized 3 V Trachea View: Not well visualized IVC: Could not document Crossing: Not well visualized Abdomen Ventral Wall: Could not document Cord Insertion: Appears normal Situs: Appears normal Stomach: Appears normal Lt Kidney: Appears normal Rt Kidney: Appears normal Bladder: Appears normal Bowel: Appears normal Extremities Lt Humerus: Appears normal Rt Humerus: Appears normal Lt Forearm: Appears normal Rt Forearm: Appears normal Lt Hand: Not well visualized Rt Hand: Not well visualized Lt Femur: Appears normal Rt Femur: Appears normal Lt Lower Leg: Appears normal Rt Lower Leg: Appears normal Lt Foot: Appears normal Rt Foot: Appears normal Other Umbilical Cord: Appears normal Masses: None visualized Genitalia: Male Comment: PATIENT DOES NOT KNOW GENDER! CERVIX UTERUS ADNEXA: Cervix Length: 4.1 cm. Appears closed, without funnelling Uterus Gravid uterus Right Ovary Not visualized Left Ovary Not visualized Cul De Sac No fluid seen Adnexa No adnexal masses identified COMMENTS: 1. Ultrasound is not diagnostic for chromosomal abnormalities, will not detect all structural abnormalities, and is not diagnostic for genetic disorders even if multiple exams are performed during a given . 2. anatomic survey is incomplete due to position. 3. In addition to the trans abdominal approach, a trans vaginal ultrasound was also performed to optimize the visualization of the lower uterine segment and the cervix. Constantin Chow MD Electronically Signed Final Report 10/25/2023 14:54 IMPRESSION: 1. Single intrauterine with size consistent with dates. 2. Transvaginal Cervical Length = 4.1 cm. RECOMMENDATIONS: 1. Please see [facility] consultation documentation from today's encounter. 2. Patient is scheduled in 4-6 weeks to complete the anatomic survey. 3. Subsequent follow up or other follow up as clinically determined by primary OB provider unless otherwise specified by M. 4. Results forwarded to ordering provider so they can follow up with the patient as necessary. us John TYSON OB US PROCEDURES Final Resul t documented in this encounter Visit Diagnoses Not on filedocumented in this encounter
--- OUTSIDE RECORDS SUMMARY | 2024-09-24 20:33 | XMS_ITS | Encounter Summary ---
Author Organization [facility] Address [address] [place] [address] Care Team Providers Care Manager Transplant Name Role Phone Unavailable Primary Care Provider Unavailabl e Encounter Details Date Type Department Care Team (Late st Contact Info) Description 10/26/2023 Abstract [facility] OB [address] [place] [address] John Koehler, DO [address] Fabien Silva, [facility]11 Social History Tobacco Use Types Packs/Day Years [...] on file documented as of this encounter Visit Diagnoses Not on filedocumented in this encounter
--- OUTSIDE RECORDS SUMMARY | 2024-09-24 20:33 | XMS_ITS | Encounter Summary ---
Author Organization [facility] Address [address] [place] [address] Care Team Providers Care Associate Professor Of Geology Name Role Phone Unavailable Primary Care Provider Unavailabl e Encounter Details Date Type Department Care Team (Late st Contact Info) Description 01/18/2024 Abstract [facility] OB [address] [place] [phone] John Koehler, DO [address] [facility] [address] Fabien Silva, [facility]11 Social History Tobacco Use Types Packs/Day Years [...]
--- OUTSIDE RECORDS SUMMARY | 2024-09-24 20:33 | XMS_ITS | Encounter Summary ---
Author Organization [facility] Address [address] [place] [address] Care Team Providers Care Time Lock Expert Name Role Phone Unavailable Primary Care Provider Unavailabl e Encounter Details Date Type Department Care Team (Late st Contact Info) Description 01/28/2024 Abstract [facility] OB [address] [place] [phone] John Koehler, DO [address] [facility] [address] Fabien Silva, [place] [address] Social History Tobacco Use Types Packs/Day Years [...]
--- OUTSIDE RECORDS SUMMARY | 2024-09-24 20:33 | XMS_ITS | Encounter Summary ---
Author Organization [facility] Address [address] [place] [address] Care Team Providers Care Rivet Machine Operator Name Role Phone Unavailable Primary Care Provider Unavailabl e Encounter Details Date Type Department Care Team (Late st Contact Info) Description 01/28/2024 Abstract [facility] OB [address] [place] [phone] John Koehler, DO [address] [facility] [address] Fabien Silva, [place] [address] Social History Tobacco Use Types Packs/Day Years [...]
--- OUTSIDE RECORDS SUMMARY | 2024-09-24 20:33 | XMS_ITS | Encounter Summary ---
Author Organization [facility] Address [address] [place] [address] Care Team Providers Care Energy Control Officer Name Role Phone Unavailable Primary Care Provider Unavailabl e Encounter Details Date Type Department Care Team (Late st Contact Info) Description 01/28/2024 Abstract [facility] OB [address] [place] [phone] John Koehler, DO [address] [facility] [address] Fabien Silva, [place] [address] Social History Tobacco Use Types Packs/Day Years [...]
--- OUTSIDE RECORDS SUMMARY | 2024-09-24 20:33 | XMS_ITS | Encounter Summary ---
Author Organization [facility] Address [address] [place] [address] Care Team Providers Care Grease Man Name Role Phone Unavailable Primary Care Provider Unavailabl e Encounter Details Date Type Department Care Team (Late st Contact Info) Description 10/26/2023 Abstract [facility] OB [address] [place] [address] John Koehler, DO [address] Fabien Silva, [facility]11 Social History Tobacco Use Types Packs/Day Years [...]
--- OUTSIDE RECORDS SUMMARY | 2024-09-24 20:33 | XMS_ITS | Encounter Summary ---
Author Organization [facility] Address [address] [facility] [place] [address] Care Team Providers Care Aerial Photogrammetrist Name Role Phone Unavailable Primary Care Provider Unavailabl e Encounter Details Date Type Department Care Team (Late st Contact Info) Description 08/01/2023 Abstract [facility] OB [address] [place] [phone] Carine Ybarra LPN [address] [facility] [id number] Social History Tobacco Use Types Packs/Day Years Used Date Smoking Tobacco: Never Assessed Comments Yes Sex and Gender Information Value [...]
--- OUTSIDE RECORDS SUMMARY | 2024-09-24 20:33 | XMS_ITS | Encounter Summary ---
Author Organization [facility] Address [address] [place] [address] Care Team Providers Care Fine Arts Packer Name Role Phone Unavailable Primary Care Provider Unavailabl e Encounter Details Date Type Department Care Team (Late st Contact Info) Description 12/20/2023 Abstract [facility] OB [address] [place] [phone] John Koehler, DO [address] [facility] [address] Fabien Silva, [facility]11 Social History Tobacco Use Types Packs/Day Years [...]
--- OUTSIDE RECORDS SUMMARY | 2024-09-24 20:33 | XMS_ITS | Encounter Summary ---
Author Organization [facility] Address [address] [facility] [place] [address] Care Team Providers Care Chemistry Laboratory Technician Name Role Phone Unavailable Primary Care Provider Unavailabl e Encounter Details Date Type Department Care Team (Late st Contact Info) Description 08/24/2023 Abstract [facility] OB [address] [facility] [place] [phone] Nano Major LPN Social History Tobacco Use Types Packs/Day Years [...]
--- OUTSIDE RECORDS SUMMARY | 2024-09-24 20:33 | XMS_ITS | Encounter Summary ---
Author Organization [employer] Address [id number] [address] [place] [address] Care Team Providers Care Rfid Strategist Name Role Phone No Pcp, No Pcp Primary Care Provider Unavailabl e Encounter Details Date Type Department Care Team (Late st Contact Info) Description 06/27/2021 Abstract [facility] [address] [place] [phone] Mya Kay MD [address] [facility] [place] [phone] Social History Tobacco Use Types Packs/Day Years Used Date Smoking Tobacco: Former Smokeless Tobacco: Never Alcohol Use Standard Drinks/Week Comments Not Currently 0 (1 standard drink = 0.6 oz pur e alcohol) occassional Childcare Answer Date Recorded Childcare Unknown 08/28/2018 Employment Answer Date Recorded Employment Unknown 08/28/2018 Purpose - Life Answer Date Recorded Purpose and direction in life Unknown Comments Yes Sex and Gender Information Value Date Recorded Sex Assigned at Not on file Legal Sex Female 11:43 AM EDT Gender Identity Not on file Sexual Orientation Not on file COVID-19 Exposure Response Date Recorded In the last 10 days, have yo u been in contact with someone who was confirmed or suspected to have Coronavirus/COVID-19? No / Unsure 06/27/2021 10:44 AM EDT documented as of this encounter Plan of Treatment Not on file documented as of this encounter Procedures Procedure Name Priority Date/Time Associated Diagnosis Comments CBC AND DIFFERENTIAL Routine 06/14/2021 HEPATITIS B SURFACE ANTIGEN Routine 02/16/2021 VARICELLA ZOSTER ANTIBODY, IGG Routine 02/16/2021 HEMOGLOBIN A1C Routine 02/16/2021 documented in this encounter Results * (ABNORMAL) CBC and differential (06/14/2021) Hemoglobin 10.2(A) 12.0 - 16.0 g/dL MANUALLY TRANSCRIBED RESULTS Hematocrit 31(A) 36 - 46 % MANUALLY TRANSCRIBED RESULTS Platelets 298 150 - 399 10*3/uL MANUALLY TRANSCRIBED RESULTS Auto WBC 8.6 3.3 - 10.0 10*3/mL MANUALLY TRANSCRIBED RESULTS Blood us Crh Other Provider LAB BLOOD ORDERABLES Final Re sult Performing Organization Address City/[facility] Co de Phone Number MANUALLY TRANSCRIBED RESULTS * Hepatitis B surface antigen (02/16/2021) Hepatitis B Surface Antigen negative MANUALLY TRANSCRIBED RESULTS us Not In System Ref Prov LAB BLOOD ORDERABLES Serene l Result MANUALLY TRANSCRIBED RESULTS * Hemoglobin A1c (02/16/2021) Hemoglobin A1C 5.2 4.0 - 6.0 % MANUALLY TRANSCRIBED RESULTS us Crh Other Provider LAB BLOOD ORDERABLES Final Re sult MANUALLY TRANSCRIBED RESULTS * Varicella zoster antibody, IgG (02/16/2021) Varicella Zoster Igg positive MANUALLY TRANSCRIBED RESULTS us Not In System Ref Prov LAB BLOOD ORDERABLES Serene l Result MANUALLY TRANSCRIBED RESULTS documented in this encounter Visit Diagnoses Not on filedocumented in this encounter Care Teams Rfid Strategist Relationship Specialty Start Date End Date No Pcp, [place] [address] PCP - General Family Medicine 02/09/24 documented as of this encounter
--- OUTSIDE RECORDS SUMMARY | 2024-09-24 20:33 | XMS_ITS | Encounter Summary ---
Author Organization [facility] Address [address] [place] [address] Care Team Providers Care Alumni Relations Coordinator Name Role Phone Unavailable Primary Care Provider Unavailabl e Encounter Details Date Type Department Care Team (Late st Contact Info) Description 02/11/2024 Abstract [facility] OB [address] [place] [phone] John Koehelr, DO [address] [facility] [address] Fabien Silva, [facility]11 Social History Tobacco Use Types Packs/Day [...]
--- OUTSIDE RECORDS SUMMARY | 2024-09-24 20:33 | XMS_ITS | Encounter Summary ---
Author Organization [facility] Address [address] [place] [address] Care Team Providers Care Black Powder Glazing Operator Name Role Phone Unavailable Primary Care Provider Unavailabl e Encounter Details Date Type Department Care Team (Late st Contact Info) Description 01/17/2024 Clinisync Result Encounter [facility] External Department Unsolicited John Koehler, DO [address] [facility] [address] Fabien Mcgrath [place], [place] [id number] Social History Tobacco Use Types Packs/Day Years [...] Priority Date/Time Associated Diagnosis Comments US OB BPP W NON-STRESS 01/17/2024 1:51 PM EDT documented in this encounter Results * US OB BPP W NON-STRESS (01/17/2024 1:51 PM EDT) Anatomical Region Laterality Modality Other 01/17/2024 1:51 PM EDT Narrative 01/17/2024 1:53 [place] [address] Ultrasound Report Signed Patient: MATTY GRIGSBY MR#: [id number] : 1990 Acct:[id number] Age/Sex: 33 / F ADM Date: 01/17/24 Loc: [facility] 250-[address]: John Koehler D.O. Ordering Physician: John Koehler D.O. Date of Service: 01/17/24 Procedure(s): US OB BPP w non-stress Accession Number(s): [id number] cc: John Koehler D.O.; Physician,Non-Staff Rajan [place] [address] Patient Name: MATTY GRIGSBY MRN: [id number] date: 1990 Sex: F Assigned Patient Location: [facility] Current Patient Location: [facility] Accession/Order Number: [id number] Exam Date: 01/17/2024 13:00 Report Date: 01/17/2024 13:51 At the request of: JOHN KOEHLER Procedure: US OB BPP w non-stress EXAMINATION: US OB BPP w non-stress HISTORY: History of placenta abruption Z87.59 COMPARISON: No relevant comparison available. TECHNIQUE: Ultrasound biophysical profile was performed in the radiology department. non-reactive stress testing was performed by nursing staff in the birthing center. FINDINGS: BREATHING MOVEMENTS: 2 GROSS BODY MOVEMENTS: 2 TONE: 2 QUALITATIVE AMNIOTIC FLUID VOLUME: 2 PRESENTATION: CEPHALIC HEART RATE: 131.71 bpm AMNIOTIC FLUID VOLUME: 17.5 cm GESTATIONAL AGE: 35 weeks 1 day US/US OB BPP w non-stress IMPRESSION: Total biophysical profile score: 8 Electronically authenticated by: MIGUEL BENAVIDES Date: 01/17/2024 13:51 Dictated By: Miguel Benavides M.D. Signed By: 01/17/24 1350 DD/ 135 TD/TT: Pediatric Licensed Practical Nurse: Procedure Note Radiology, Radiologist, - 01/17/2024 [place] [address] Ultrasound Report Signed Patient: MATTY GRIGSBY EMR#: [id number] : 1990Acct:[id number] Age/Sex: 33 / FADM Date: 01/17/24 Loc: [facility] 250-[address]: John Koehler D.O. Ordering Physician: John Koehler D.O. Date of Service: 01/17/24 Procedure(s): US OB BPP w non-stress Accession Number(s): [id number] cc: John Koehler D.O.; Physician,Non-Staff Rajan [place] [address] Patient Name: MATTY GRIGSBY MRN: [id number] date: 1990 Sex: F Assigned Patient Location: [facility] Current Patient Location: [facility] Accession/Order Number: [id number] Exam Date: 01/17/2024 13:00 Report Date: 01/17/2024 13:51 At the request of: JOHN KOEHLER Procedure: US OB BPP w non-stress EXAMINATION: US OB BPP w non-stress HISTORY: History of placenta abruption Z87.59 COMPARISON: No relevant comparison available. TECHNIQUE: Ultrasound biophysical profile was performed in the radiology department. non-reactive stress testing was performed by nursingstaff in the birthing center. FINDINGS: BREATHING MOVEMENTS: 2 GROSS BODY MOVEMENTS: 2 TONE: 2 QUALITATIVE AMNIOTIC FLUID VOLUME: 2 PRESENTATION: CEPHALIC HEART RATE: 131.71 bpm AMNIOTIC FLUID VOLUME: 17.5 cm GESTATIONAL AGE: 35 weeks 1 day US/US OB BPP w non-stress IMPRESSION: Total biophysical profile score: 8 Electronically authenticated by: MIGUEL BENAVIDES Date: 01/17/2024 13:51 Dictated By: Miguel Benavides M.D. Signed By:01/17/24 1353 DD/ 1351 TD/TT: Pediatric Licensed Practical Nurse: John Koehler DO [facility] Final Result documented in this encounter Visit Diagnoses Not on filedocumented in this encounter
--- OUTSIDE RECORDS SUMMARY | 2024-09-24 20:33 | XMS_ITS | Encounter Summary ---
Author Organization [facility] Address [address] [place] [address] Care Team Providers Care Die Repair Name Role Phone Unavailable Primary Care Provider Unavailabl e Encounter Details Date Type Department Care Team (Late st Contact Info) Description 07/26/2023 Clinisync Result Encounter [facility] External Department Unsolicited John Koehler, DO [address] [facility] [place] [address] Social History Tobacco Use Types Packs/Day Years [...] Priority Date/Time Associated Diagnosis Comments US OB TRANSVAGINAL 07/26/2023 1: 38 PM EDT documented in this encounter Results * US OB TRANSVAGINAL (07/26/2023 1:38 PM EDT) Anatomical Region Laterality Modality Other 07/26/2023 1:38 PM EDT Narrative 07/26/2023 1:41 PM EDT The [address] [address] Ultrasound Report Signed Patient: Matty Grigsby MR#: [id number] : 1990 Acct:[id number] Age/Sex: 33 / F ADM Date: 07/26/23 Loc: [facility] Attending Dr: John Koehler D.O. Ordering Physician: John Koehler D.O. Date of Service: 07/26/23 Procedure(s): US OB transvaginal Accession Number(s): [id number] cc: John Koehler D.O.; Physician,Non-Staff Rajan The [place] [id number] Patient Name: MATTY GRIGSBY MRN: [facility]:[id number] date: 1990 Sex: F Assigned Patient Location: [facility] Current Patient Location: [facility] Accession/Order Number: [id number] Exam Date: 07/26/2023 12:45 Report Date: 07/26/2023 13:38 At the request of: JOHN KOEHLER Procedure: US OB transvaginal EXAMINATION: US OB transvaginal HISTORY: MISSED MENSES COMPARISON: No relevant comparison available. FINDINGS: GESTATIONAL SAC: Present and normal appearing. YOLK SAC: Present and normal appearing. POLE: Present and normal appearing. CARDIAC: Present. UTERUS: Small subchorionic hematoma/implantation bleed. OVARIES: Right: Corpus lutein cyst. Left: Normal. CERVIX: 4.4 cm in length and closed. CUL-DE-SAC: Normal. OTHER: None. AGE BY LMP: 9 weeks 2 days DWIGHT BY LMP: 02/26/2024 AGE BY US CRL: 10 weeks 1 day DWIGHT BY US CRL: 02/20/2024 US/US OB transvaginal IMPRESSION: 1. Single live intrauterine . Electronically authenticated by: JOSE MARQUEZ Date: 07/26/2023 13:38 Dictated By: Jose Marquez M.D. Signed By: 07/26/23 1341 DD/ 1338 TD/TT: Slubber Hand: Procedure Note Radiology, Radiologist, MD - 07/26/[address] [address] Ultrasound Report Signed Patient: Matty Grigsby EMR#: [id number] : 1990Acct:[id number] Age/Sex: 33 / FADM Date: 07/26/23 Loc: [facility] Attending Dr: John Koehler D.O. Ordering Physician: John Koehler D.O. Date of Service: 07/26/23 Procedure(s): US OB transvaginal Accession Number(s): [id number] cc: John Koehler D.O.; Physician,Non-Staff [place] [address] Patient Name: MATTY GRIGSBY MRN: [facility]:[id number] date: 1990 Sex: F Assigned Patient Location: [facility] Current Patient Location: [facility] Accession/Order Number: [id number] Exam Date: 07/26/2023 12:45 Report Date: 07/26/2023 13:38 At the request of: JOHN KOEHLER Procedure: US OB transvaginal EXAMINATION: US OB transvaginal HISTORY: MISSED MENSES COMPARISON: No relevant comparison available. FINDINGS: GESTATIONAL SAC: Present and normal appearing. YOLK SAC: Present and normal appearing. POLE: Present and normal appearing. CARDIAC: Present. UTERUS: Small subchorionic hematoma/implantation bleed. OVARIES: Right: Corpus lutein cyst. Left: Normal. CERVIX: 4.4 cm in length and closed. CUL-DE-SAC: Normal. OTHER: None. AGE BY LMP: 9 weeks 2 days DWIGHT BY LMP: 02/26/2024 AGE BY US CRL: 10 weeks 1 day DWIGHT BY US CRL: 02/20/2024 US/US OB transvaginal IMPRESSION: 1. Single live intrauterine . Electronically authenticated by: JOSE MARQUEZ Date: 07/26/2023 13:38 Dictated By: Jose Marquez M.D. Signed By:07/26/23 1341 DD/ 1338 TD/TT: Slubber Hand: us John Koehler DO [facility] Final Result documented in this encounter Visit Diagnoses Not on filedocumented in this encounter
--- OUTSIDE RECORDS SUMMARY | 2024-09-24 20:33 | XMS_ITS | Clinical Summary ---
Author Organization [facility] Address [address] [place] [address] Care Team Providers Care Naturopathic Doctor Name Role Phone Unavailable Primary Care Provider Unavailabl e Allergies No known active allergies Medications omeprazole (PriLOSEC) [address] capsuleIndications: Heartburn Take 1 capsule (20 mg) by mouth in the morning. Take before meals. Do not crush or chew.. 30 capsule 11 4 Active MV-Min-Fe Fum-FA-DHA ( 1 PO) Take 1 each by mouth Daily Active ondansetron ODT (Zofran-ODT) 4 MG disintegrating tablet DISSOLVE 1 TABLET IN MOUTH EVERY 6 HOURS NEEDED FOR NAUSEA OR FOR VOMITING 4 Active Active Problems Problem Noted Date Diagnosed Date 6 weeks follow-up ([facility]) 4 Post-operative state 03/13/2024 Encounters Date Type Department Care Team Description 09/24/2024 2:00 PM EDT Office Visit [facility] OB [address] [place] [address] John Koehler DO Well woman exam with routine gynecological exam 09/24/2024 Bamboo flowsheet [facility] OB [address] [place] [address] John Koehler DO from Last 3 Months Family History Medical History Relation Name Comments Asthma Brother Deion Nicholsonelo Diabetes Father Jake Lynelo Asthma Mother Halina Cardenas Relation Name Status Comments Brother Deion Arbelo Father Jake Arbelo Mother Halina Cardenas Social History Tobacco Use Types Packs/Day Years Used Date Smoking Tobacco: Former Cigarettes 0.5 18.1 0 08/18/2015 - 09/19/2014 Smokeless Tobacco: Never Tobacco Cessation:Counseling Given: Not Answered Alcohol Use Standard Drinks/Week Comments Not Currently 1 (1 standard drink = 0.6 oz pur e alcohol) Comments No Sex and Gender Information Value Date Recorded Sex Assigned at Not on file Legal Sex Female 11:14 PM EDT Gender Identity Female 07/26/2023 9:46 AM EDT Sexual Orientation Straight 07/26/2023 9: 46 AM EDT Last Filed Vital Signs Vital Sign Reading Time Taken Comments Blood Pressure 122/76 09/24/2024 2:05 PM EDT Pulse - - Temperature - - Respiratory Rate - - Oxygen Saturation - - Inhaled Oxygen Concentration - - Weight 106 kg (234 lb) 09/24/2024 2:05 PM EDT Height 172.7 cm (5' 8 ) 02/16/2021 12:00 PM EST Body Mass Index 35.58 02/16/2021 12:00 PM EST Plan of Treatment Not on file Insurance
--- OUTSIDE RECORDS SUMMARY | 2024-09-24 20:33 | XMS_ITS | Encounter Summary ---
Author Organization [facility] Address [address] [place] [address] Care Team Providers Care Channel Marketing Specialist Name Role Phone Unavailable Primary Care Provider Unavailabl e Encounter Details Date Type Department Care Team (Late st Contact Info) Description 12/28/2023 Clinisync Result Encounter [facility] External Department Unsolicited John Koehler, DO [address] [facility] [address] [place], [place] [id number] Social History Tobacco Use Types Packs/Day Years [...] Diagnosis Comments US OB BPP W NON-STRESS 12/28/2023 4:10 AM EDT documented in this encounter Results * US OB BPP W NON-STRESS (12/28/2023 4:10 AM EDT) Anatomical Region Laterality Modality Other 12/28/2023 4:10 AM EDT Narrative 12/28/2023 4:13 AM EDT [place] [id number] Ultrasound Report Signed Patient: MATTY GRIGSBY MR#: [id number] : 1990 Acct:[id number] Age/Sex: 33 / F ADM Date: 12/27/23 Loc: US Attending Dr: John Koehler D.O. Ordering Physician: John Koehler D.O. Date of Service: 12/27/23 Procedure(s): US OB BPP w non-stress Accession Number(s): [id number] cc: John Koehler D.O.; Physician,Non-Staff Rajan The [place] [id number] Patient Name: MATTY GRIGSBY MRN: [id number] date: 1990 Sex: F Assigned Patient Location: [facility] Current Patient Location: Accession/Order Number: [id number] Exam Date: 12/27/2023 13:45 Report Date: 12/28/2023 04:10 At the request of: JOHN KOEHLER Procedure: US OB BPP w non-stress EXAMINATION: US OB BPP w non-stress HISTORY:History of placenta previa COMPARISON: Ultrasound OB transvaginal 07/26/2023 TECHNIQUE: Ultrasound biophysical profile was performed in the radiology department. BREATHING MOVEMENTS: 2 GROSS BODY MOVEMENTS: 2 TONE: 2 QUALITATIVE AMNIOTIC FLUID VOLUME: 2 PRESENTATION: CEPHALIC HEART RATE: 137.06 bpm AMNIOTIC FLUID VOLUME: 14.85 cm GESTATIONAL AGE: 32 weeks 1 day US/US OB BPP w non-stress IMPRESSION: Total biophysical profile score: 8 Electronically authenticated by: JOSE MARQUEZ Date: 12/28/2023 04:10 Dictated By: Jose Marquez M.D. Signed By: 12/28/23412 DD/ 9 TD/TT: Dramatic Art Teacher: Procedure Note Radiology, Radiologist, MD - 12/28/2023 [place] [address] Ultrasound Report Signed Patient: MATTY GRIGSBY EMR#: [id number] : 1990Acct:[id number] Age/Sex: 33 / FADM Date: 12/27/23 Loc: US Attending Dr: John Koehler D.O. Ordering Physician: John Koehler D.O. Date of Service: 12/27/23 Procedure(s): US OB BPP w non-stress Accession Number(s): [id number] cc: John Koehler D.O.; Physician,Non-Staff [place] [address] Patient Name: MATTY GRIGSBY MRN: [facility]:[id number] date: 1990 Sex: F Assigned Patient Location: [facility] Current Patient Location: Accession/Order Number: [id number] Exam Date: 12/27/2023 13:45 Report Date: 12/28/2023 04:10 At the request of: JOHN KOEHLER Procedure: US OB BPP w non-stress EXAMINATION: US OB BPP w non-stress HISTORY:History of placenta previa COMPARISON: Ultrasound OB transvaginal 07/26/2023 TECHNIQUE: Ultrasound biophysical profile was performed in the radiology department. BREATHING MOVEMENTS: 2 GROSS BODY MOVEMENTS: 2 TONE: 2 QUALITATIVE AMNIOTIC FLUID VOLUME: 2 PRESENTATION: CEPHALIC HEART RATE: 137.06 bpm AMNIOTIC FLUID VOLUME: 14.85 cm GESTATIONAL AGE: 32 weeks 1 day US/US OB BPP w non-stress IMPRESSION: Total biophysical profile score: 8 Electronically authenticated by: JOSE MARQUEZ Date: 12/28/2023 04:10 Dictated By: Jose Marquez M.D. Signed By:12/28/233 DD/ 9 TD/TT: Dramatic Art Teacher: us John Koehler DO [facility] Final Result documented in this encounter Visit Diagnoses Not on filedocumented in this encounter
--- OUTSIDE RECORDS SUMMARY | 2024-09-24 20:33 | XMS_ITS | Encounter Summary ---
Author Organization [facility] Address [address] [place] [address] Care Team Providers Care City Treasurer Name Role Phone Unavailable Primary Care Provider Unavailabl e Encounter Details Date Type Department Care Team (Late st Contact Info) Description 11/22/2023 Abstract [facility] OB [address] [place] [address] John Koehler, DO [address] [facility] [address] Fabien Sivla, [id number] Social History Tobacco Use Types Packs/Day Years [...]
--- OUTSIDE RECORDS SUMMARY | 2024-09-24 20:33 | XMS_ITS | Encounter Summary ---
Author Organization [facility] Address [address] [place] [address] Care Team Providers Care Mortuary Beautician Name Role Phone Unavailable Primary Care Provider Unavailabl e Encounter Details Date Type Department Care Team (Late st Contact Info) Description 01/03/2024 Clinisync Result Encounter [facility] External Department Unsolicited John Koehler, DO [address] [facility] [address] [place], [place] [phone] Social History Tobacco Use Types Packs/Day Years [...] Diagnosis Comments US OB BPP W NON-STRESS 01/03/2024 1:45 PM EDT documented in this encounter Results * US OB BPP W NON-STRESS (01/03/2024 1:45 PM EDT) Anatomical Region Laterality Modality Other 01/03/2024 1:45 PM EDT Narrative 01/03/2024 1:47 [place] [address] Ultrasound Report Signed Patient: MATTY GRIGSBY MR#: [id number] : 1990 Acct:[id number] Age/Sex: 33 / F ADM Date: 01/03/24 Loc: [facility] 254-[address]: John Koehler D.O. Ordering Physician: John Koehler D.O. Date of Service: 01/03/24 Procedure(s): US OB BPP w non-stress Accession Number(s): [id number] cc: John Koehler D.O.; Physician,Non-Staff Rajan The [place] [address] Patient Name: MATTY GRIGSBY MRN: [id number] date: 1990 Sex: F Assigned Patient Location: [facility] Current Patient Location: [facility] Accession/Order Number: [id number] Exam Date: 01/03/2024 13:08 Report Date: 01/03/2024 13:45 At the request of: JOHN KOEHLER Procedure: US OB BPP w non-stress EXAMINATION: US OB BPP w non-stress HISTORY: HISTORY OF PLACENTA PREVIA Z87.59 COMPARISON: No relevant comparison available. TECHNIQUE: Ultrasound biophysical profile was performed in the radiology department. non-reactive stress testing was performed by nursing staff in the birthing center. FINDINGS: BREATHING MOVEMENTS: 2 GROSS BODY MOVEMENTS: 2 TONE: 2 QUALITATIVE AMNIOTIC FLUID VOLUME: 2 PRESENTATION: CEPHALIC HEART RATE: 133.00 bpm AMNIOTIC FLUID VOLUME: 18.96 cm GESTATIONAL AGE: 33 weeks 1 day US/US OB BPP w non-stress IMPRESSION: Total biophysical profile score: 8 Electronically authenticated by: MIGUEL BENAVIDES Date: 01/03/2024 13:45 Dictated By: Miguel Benavides M.D. Signed By: 01/03/24 1345 DD/ 7232 TD/TT: Support Clerk: Procedure Note Radiology, Radiologist, - 01/03/2024 [place] [address] Ultrasound Report Signed Patient: MATTY GRIGSBY EMR#: [id number] : 1990Acct:[id number] Age/Sex: 33 / FADM Date: 01/03/24 Loc: [facility] 254-[address]: John Koehler D.O. Ordering Physician: John Koehler D.O. Date of Service: 01/03/24 Procedure(s): US OB BPP w non-stress Accession Number(s): [id number] cc: John Koehler D.O.; Physician,Non-Staff Rajan [place] [address] Patient Name: MATTY GRIGSBY MRN: [id number] date: 1990 Sex: F Assigned Patient Location: [facility] Current Patient Location: [facility] Accession/Order Number: [id number] Exam Date: 01/03/2024 13:08 Report Date: 01/03/2024 13:45 At the request of: JOHN KOEHLER Procedure: US OB BPP w non-stress EXAMINATION: US OB BPP w non-stress HISTORY: HISTORY OF PLACENTA PREVIA Z87.59 COMPARISON: No relevant comparison available. TECHNIQUE: Ultrasound biophysical profile was performed in the radiology department. non-reactive stress testing was performed by nursingstaff in the birthing center. FINDINGS: BREATHING MOVEMENTS: 2 GROSS BODY MOVEMENTS: 2 TONE: 2 QUALITATIVE AMNIOTIC FLUID VOLUME: 2 PRESENTATION: CEPHALIC HEART RATE: 133.00 bpm AMNIOTIC FLUID VOLUME: 18.96 cm GESTATIONAL AGE: 33 weeks 1 day US/US OB BPP w non-stress IMPRESSION: Total biophysical profile score: 8 Electronically authenticated by: MIGUEL BENAVIDES Date: 01/03/2024 13:45 Dictated By: Miguel Benavides M.D. Signed By:01/03/24 1347 DD/ 1347 TD/TT: Support Clerk: John Koehler DO [facility] Final Result documented in this encounter Visit Diagnoses Not on filedocumented in this encounter
--- OUTSIDE RECORDS SUMMARY | 2024-09-24 20:33 | XMS_ITS | Encounter Summary ---
Author Organization [facility] Address [address] [place] [address] Care Team Providers Care Flight Security Specialist Name Role Phone Unavailable Primary Care Provider Unavailabl e Encounter Details Date Type Department Care Team (Late st Contact Info) Description 01/28/2024 Abstract [facility] OB [address] [place] [id number] John Koehler, DO [address] [facility] [address] Fabien [place], [place] [address] Social History Tobacco Use Types Packs/Day Years [...]
--- OUTSIDE RECORDS SUMMARY | 2024-09-24 20:33 | XMS_ITS | Encounter Summary ---
Author Organization [facility] Treasure Data [facility] tem Address [id number] [address] [place] [address] Care Team Providers Care Clean Out Driller Name Role Phone No Pcp, No Pcp Primary Care Provider Unavailabl e Encounter Details Date Type Department Care Team (Late st Contact Info) Description 07/11/2021 Orders Only [facility] - Labor [address] [place] [id number] Jayla Collins RN Placenta previa in second trimester (Primary Dx) Social History Tobacco Use Types Packs/Day Years [...] suspected to have Coronavirus/COVID-19? No / Unsure 07/11/2021 10:48 AM EDT documented as of this encounter Plan of Treatment Not on file documented as of this encounter Results * SARS COV 2 (COVID-19) (08/16/2021 9:21 AM EDT) Specimen Naso Pharynx 08/16/2021 5:42 PM EDT [facility] Sent to Testing to be performed at [facility]. 08/16/2021 5:42 PM EDT [facility] COVID-19 [facility] Report to Follow. 08/16/2021 5:42 PM EDT [facility] Nasopharyngeal structure / Unknown 08/16/2021 9:21 AM EDT 08/16/2021 5:26 PM EDT us Esteban Jc MD MICROBIOLOGY - GENERAL ORDERAB LES Final Result [facility] documented in this encounter Visit Diagnoses Diagnosis Placenta previa in second trimester- Primary documented in this encounter Care Teams Clean Out Driller Relationship Specialty Start Date End Date No Pcp, [place] [address] PCP - General Family Medicine 02/09/24 documented as of this encounter
--- OUTSIDE RECORDS SUMMARY | 2024-09-24 20:33 | XMS_ITS | Clinical Summary ---
Author Organization [facility] Address [id number] [address] [place] [address] Care Team Providers Care Patient Carrier Name Role Phone No Pcp, No Pcp Primary Care Provider Unavailabl e Allergies No known active allergies Medications [id number] c acid ( 19) 29 mg iron- 1 mg tablet,chewable Chew 1 tablet and swallow in the morning. Active omeprazole (PriLOSEC) 20 mg capsule Take 1 capsule (20 mg total) by mouth in the morning. Active ondansetron (ZOFRAN) 4 mg tablet Take 1 tablet (4 mg total) by mouth every 8 (eight) hours as needed for nausea or vomiting. 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 Resolved Problems Problem Noted Date Diagnosed Date Resolved Date Intrauterine 08/19/202108/28 Iron deficiency anemia of 07/25/2021 08/28/2021 Overview (07/25/2021): Scheduled for iron infusions with first on scheduled for 07/25/21 care 06/26/2021 08/28/2021 Overview (07/25/2021): Lives in [place] Transfer from [facility] Dated by LMP c/w 19 week US 28 week labs completed Control Method plan on 07/11/21: Nuvaring Declined all vaccines 07/19/21 [facility] EFw 98% Ac 98% DVP 5.85 cm TRANSVERSE Lie Complete placenta previa Vaginal bleeding in 06/14/2021 08/28/2021 Placenta previa in second trimester 05/06/2021 08/28/2021 Overview (07/25/2021): No previous Admitted 06/14/21 for vaginal bleeding at 27 weeks. Rec'd ANCS 06/14 and 06/15 Scheduled for on 08/19/21 at 37w0d Immunizations No known immunizations Family History Medical History Relation Name Comments Diabetes Father Heart disease Father Hyperlipidemia Father Heart disease Mother Kidney disease Mother Breast cancer Paternal Grandmother Relation Name Status Comments Father Alive Mother Alive Paternal Grandmother Social History Tobacco Use Types Packs/Day Years Used Date Smoking Tobacco: Former Smokeless Tobacco: Never Tobacco Cessation:Counseling Given: Not Answered Alcohol Use Standard Drinks/Week Comments Not Currently 0 (1 standard drink = 0.6 oz pur e alcohol) occassional Social Connection and Isolation Panel [NHANES] A nswer Date Recorded In a typical week, how many times do you talk on the phone with family, friends, or neighbors? Once a week 07/22/2021 How often do you get together with friends or re latives? Once a week 07/22/2021 How often do you attend jehovah's witness or taoism serv ices? Never 07/22/2021 Do you belong to any clubs o r organizations such as jehovah's witness groups, unions, fraternal or athletic groups, or school groups? No 07/22/2021 How often do you attend meet ings of the clubs or organizations you belong to? Never 07/22/2021 Are you , , di vorced, , never , or living with a partner? Never 07/22/2021 AUDIT-C Answer Date Recorded Q1: How often do you have a drink containing alcohol? Never 07/22/2021 Q2: How many drinks containi ng alcohol do you have on a typical day when you are drinking? Patient does not drink Q3: How often do you have si x or more drinks on one occasion? Never 07/22/2021 Overall Financial Resource Strain (CARDIA) Answe r Date Recorded How hard is it for you to pa y for the very basics like food, housing, medical care, and heating? Not very hard 09/29/2021 PHQ-2 Answer Date Recorded Total Score 0 09/29/2021 [facility] - Occupational Stress Questionnaire Answer Date Recorded Do you feel stress - tense, restless, nervous, or anxious, or unable to sleep at night because your mind is troubled all the time - these days? Only a little 07/22/2021 Exercise Vital Sign Answer Date Recorde d On average, how many days pe r week do you engage in moderate to strenuous exercise (like a brisk walk)? 0 days 07/22/2021 On average, how many minutes do you engage in exercise at this level? 0 min 07/22/2021 PRAPARE - Transportation Answer Date Re corded In the past 12 months, has l ack of transportation kept you from medical appointments or from getting medications? No 08/2021 In the past 12 months, has l ack of transportation kept you from meetings, work, or from getting things needed for daily living? No 07/22/2021 [place] Depression Scale Answer Date Recorded [place] Depression Scale Total 1 09/29/2021 The thought of harming myself has occurred to me . Never 09/29/2021 Childcare Answer Date Recorded Do problems getting child ca re make it difficult for you to work or study? Yes 09/29/2021 Employment Answer Date Recorded Do you need help finding a [employer] [facility] career center and/or a training program? No 07/22/2021 Hunger Screening Answer Date Recorded Within the past 12 months we worried whether our food would run out before we got money to buy more. Never True 02/09/2024 Within the past 12 months th e food we bought just didn't last and we didn't have money to get more. Never True 02/09/2024 Purpose - Life Answer Date Recorded I have a purpose and direction in my life. Agree 07/22/2021 Education Answer Date Recorded What is the highest level of school you have completed or the highest degree you have received? Associate degree: academic program 07/22/2021 Comments No Sex and Gender Information Value Date Recorded Sex Assigned at Not on file Legal Sex Female 11:43 AM EDT Gender Identity Not on file Sexual Orientation Not on file Last Filed Vital Signs Vital Sign Reading Time Taken Comments Blood Pressure 137/88 02/09/2024 11:55 AM EST Pulse 70 02/09/2024 11:55 AM EST Temperature 36.9 C (98.5 F) 02/09/2024 11:55 AM EST Respiratory Rate 20 02/09/2024 11:55 AM EST Oxygen Saturation 99% 02/09/2024 11:55 AM EST Inhaled Oxygen Concentration - - Weight 99.8 kg (220 lb) 02/09/2024 11:55 AM EST Height 172.7 cm (5' 8 ) 02/09/2024 11:55 AM EST Body Mass Index 33.45 02/09/2024 11:55 AM EST Plan of Treatment Health Maintenance Due Date Last Done Comments Adult BMI Follow Up Plan 2007 DTaP,Tdap and Td Vaccines (1 - Tdap) 2008 Depression Screening 09/29/2022 09/29/2021, 09/30/19 Influenza Vaccine 11/17/2024 Adult BMI Screening 02/08/2025 02/09/2024 Tobacco Screening 02/08/2025 02/09/2024 Pap Smear 09/23/2026 09/24/2023, 09/16, 09/30/2021 Medical Devices Not on file Procedures Procedure Name Priority Date/Time Associated Diagnosis Comments PAP SMEAR Routine 09/30/2021 9:38 AM EDT care and examination from Last 3 Months or Most Recently Relevant to Health Maintenance Results * Pap Smear (09/30/2021 9:38 AM EDT) 09/30/2021 9:38 AM EDT 09/30/2021 9:39 AM EDT Narrative COPATH - 10/05/2021 5:05 PM EDT [facility] [address] [place] [address] Gynecologic Cytology Consultation Patient Name:MATTY GRIGSBY:1990 (Age: 31)Gender:FTaken:2Reported:2Physician(s):Pat Borrero M.D. ([phone])Copy To: Rec. #:[id number]: #[id number] Final Cytologic Interpretation ThinPrep Pap Test (Vaginal/Cervical): Satisfactory for evaluation. NEGATIVE FOR INTRAEPITHELIAL LESION OR MALIGNANCY. The cytologic changes of atrophy are noted. These findings are consistent with the clinical history (post ). Numerous neutrophilic leukocytes are present. [facility]10/05/2021 Interpretation performed at [facility], [address] [place] [id number], License number: [id number]. Electronically Signed Out By RJ Nicole(ASCP) Date of Last Menstrual Period: (None Given) Other Clinical Conditions: Post Z39.2 Post Source of Specimen ThinPrep Pap Test (Vaginal/Cervical) Thin Prep Pap (VAT CLEANER) Fee Code(s): G0145 Pat Borrero MD PATHOLOGY/CYTOLOGY ORDERABLES [facility] Result COPATH from Last 3 Months or Most Recently Relevant to Health Maintenance Insurance ANTHEM Advance Directives * Full Code (Latest Code Status on File) Date Activated Date Inactivated Comments 08/19/2021 8:21 AM 08/21/2021 5:32 PM * Full Code Date Activated Date Inactivated Comments 06/14/2021 2:04 PM 06/21/2021 12:58 PM Care Teams Patient Carrier Relationship Specialty Start Date End Date No Pcp, [place] [address] PCP - General Family Medicine 11/23/24
--- OUTSIDE RECORDS SUMMARY | 2024-09-24 20:33 | XMS_ITS | Encounter Summary ---
Author Organization [facility] Address [address] [place] [address] Care Team Providers Care Dye House Vat Worker Name Role Phone Unavailable Primary Care Provider Unavailabl e Encounter Details Date Type Department Care Team (Late st Contact Info) Description 09/24/2024 Ruiz flowsheet [facility] [address] [place] [phone] John Koehler, DO [address] Fabien Silva, [id number] Social History Tobacco Use Types Packs/Day Years [...]
--- OUTSIDE RECORDS SUMMARY | 2024-09-24 20:33 | XMS_ITS | Encounter Summary ---
Author Organization [facility] Address [address] [place] [address] Care Team Providers Care Rig Supervisor Name Role Phone Unavailable Primary Care Provider Unavailabl e Encounter Details Date Type Department Care Team (Late st Contact Info) Description 11/22/2023 Abstract [facility] OB [address] [place] [address] John Koehler, DO [address] [facility] [address] Fabien Silva, [facility]11 Social History Tobacco Use Types Packs/Day Years [...]
--- OUTSIDE RECORDS SUMMARY | 2024-09-24 20:33 | XMS_ITS | Encounter Summary ---
Author Organization [facility] tem Address [id number] [address] [place] [address] Care Team Providers Care Natural Foods Clerk Name Role Phone No Pcp, No Pcp Primary Care Provider Unavailabl e Encounter Details Date Type Department Care Team (Late st Contact Info) Description 10/26/2023 Orders Only Maternal- Medicine at [facility] [address] [place] [phone] Natasha Bedolla RN Social History Tobacco Use Types Packs/Day Years [...] week 07/22/2021 How often do you attend sikhism or nondenominational serv ices? Never 07/22/2021 Do you belong to any clubs o r organizations such as sikhism groups, unions, fraternal or athletic groups, or [...] Answer Date Recorded Total Score 0 09/29/2021 [facility] - Occupational Stress Questionnaire Answer Date [...] things needed for daily living? No 07/22/2021 [place] Depression Scale Answer Date Recorded [place] Depression Scale Total 1 09/29/2021 The thought of harming myself has occurred to me . Never 09/29/2021 Childcare Answer Date Recorded Do problems getting child ca re make it difficult for you to work or study? Yes 09/29/2021 Employment Answer Date Recorded Do you need help finding a l al career center and/or a training program? No 07/22/2021 Hunger Screening Answer Date Recorded Within the past 12 months we worried whether our food would run out before we got money to buy more. Never True 10/25/2023 Within the past 12 months th e food we bought just didn't last and we didn't have money to get more. Never True 10/25/2023 Purpose - Life Answer Date Recorded I have a purpose and direction in my life. Agree 07/22/2021 Education Answer Date Recorded What is the highest level of school you have completed or the highest degree you have received? Associate degree: academic program 07/22/2021 Comments Yes Sex and Gender Information Value Date Recorded Sex Assigned at Not on file Legal Sex Female 11:43 AM EDT Gender Identity Not on file Sexual Orientation Not on file documented as of this encounter Plan of Treatment Not on file documented as of this encounter Visit Diagnoses Not on filedocumented in this encounter Additional Health Concerns Assessment Noted Time PHQ-9 Depression Total Score: 0 09/30/19 22 7:33 PM EDT documented as of this encounter Care Teams Natural Foods Clerk Relationship Specialty Start Date End Date No Pcp, [place] [address] PCP - General Family Medicine 02/09/24 documented as of this encounter
--- OUTSIDE RECORDS SUMMARY | 2024-09-24 20:33 | XMS_ITS | Encounter Summary ---
Author Organization [facility] Address [address] [place] [address] Care Team Providers Care Ham Marker Name Role Phone Unavailable Primary Care Provider Unavailabl e Encounter Details Date Type Department Care Team (Late st Contact Info) Description 10/26/2023 Abstract [facility] OB [address] [place] [address] John Koehler, DO [address] Fabien Silva, [facility]11 Social History Tobacco Use Types [...]
--- OUTSIDE RECORDS SUMMARY | 2024-09-24 20:33 | XMS_ITS | Encounter Summary ---
Author Organization [facility] Address [address] [place] [address] Care Team Providers Care Hand Gluer And Slicer Name Role Phone Unavailable Primary Care Provider Unavailabl e Encounter Details Date Type Department Care Team (Late st Contact Info) Description 09/27/2023 Abstract [facility] OB [address] [place] [address] John Koehler, DO [address] Fabien Silva, [facility]11 Social History Tobacco Use Types Packs/Day [...]
--- OUTSIDE RECORDS SUMMARY | 2024-09-24 20:33 | XMS_ITS | Encounter Summary ---
Author Organization [facility] Address [address] [place] [address] Care Team Providers Care Lead Section Supervisor Name Role Phone Unavailable Primary Care Provider Unavailabl e Encounter Details Date Type Department Care Team (Late st Contact Info) Description 01/18/2024 Abstract [facility] OB [address] [place] [phone] John Koehler, DO [address] [facility] [address] Fabien Silva, [facility]11 Social History Tobacco Use Types Packs/Day [...]
--- OUTSIDE RECORDS SUMMARY | 2024-09-24 20:33 | XMS_ITS | Encounter Summary ---
Author Organization [facility] Address [address] [place] [address] Care Team Providers Care Felt Hooker Name Role Phone Unavailable Primary Care Provider Unavailabl e Encounter Details Date Type Department Care Team (Late st Contact Info) Description 01/11/2024 Clinisync Result Encounter [facility] External Department Unsolicited John Koehler, DO [address] [facility] [address] Fabien Mcgrath [place], [place] [id number] Social History Tobacco Use Types Packs/Day Years [...] Diagnosis Comments US OB BPP W NON-STRESS 01/11/2024 6:23 AM EDT documented in this encounter Results * US OB BPP W NON-STRESS (01/11/2024 6:23 AM EDT) Anatomical Region Laterality Modality Other 01/11/2024 6:23 AM EDT Narrative 01/11/2024 6:27 AM EDT [place] [id number] Ultrasound Report Signed Patient: MATTY GRIGSBY MR#: [id number] : 1990 Acct:[id number] Age/Sex: 33 / F ADM Date: 01/10/24 Loc: US Attending Dr: John Koehler D.O. Ordering Physician: John Koehler D.O. Date of Service: 01/10/24 Procedure(s): US OB BPP w non-stress Accession Number(s): [id number] cc: John Koehler D.O.; Physician,Non-Staff Rajan [facility] [place] [id number] Patient Name: MATTY GRIGSBY MRN: [id number] date: 1990 Sex: F Assigned Patient Location: [facility] Current [place] [facility] Accession/Order Number: [id number] Exam Date: 01/10/2024 13:08 Report Date: 01/11/2024 06:23 At the request of: JOHN KOEHLER Procedure: US OB BPP w non-stress EXAMINATION: US OB BPP w non-stress HISTORY:H/O PLACENTA PREVIA Z87.59 COMPARISON: Ultrasound OB biophysical 01/03/2024 TECHNIQUE: Ultrasound biophysical profile was performed in the radiology department. BREATHING MOVEMENTS: 2 GROSS BODY MOVEMENTS: 2 TONE: 2 QUALITATIVE AMNIOTIC FLUID VOLUME: 2 PRESENTATION: CEPHALIC HEART RATE: 138.46 bpm AMNIOTIC FLUID VOLUME: 16.01 cm GESTATIONAL AGE: 34 weeks 1 day US/US OB BPP w non-stress IMPRESSION: Total biophysical profile score: 8 Electronically authenticated by: JOSE MARQUEZ Date: 01/11/2024 06:23 Dictated By: Jose Marquez M.D. Signed By: 01/11/24626 DD/ 2 TD/TT: Foam Cutting Supervisor: Procedure Note Radiology, Radiologist, MD - 01/11/2024 The [place] [id number] Ultrasound Report Signed Patient: MATTY GRIGSBY EMR#: [id number] : 1990Acct:[id number] Age/Sex: 33 / FADM Date: 01/10/24 Loc: US Attending Dr: John Koehler D.O. Ordering Physician: John Koehler D.O. Date of Service: 01/10/24 Procedure(s): US OB BPP w non-stress Accession Number(s): [id number] cc: John Koehler D.O.; Physician,Non-Staff [place] [address] Patient Name: MATTY GRIGSBY MRN: [facility]:[id number] date: 1990 Sex: F Assigned Patient Location: [facility] Current Patient Location: [facility] Accession/Order Number: [id number] Exam Date: 01/10/2024 13:08 Report Date: 01/11/2024 06:23 At the request of: JOHN KOEHLER Procedure: US OB BPP w non-stress EXAMINATION: US OB BPP w non-stress HISTORY:H/O PLACENTA PREVIA Z87.59 COMPARISON: Ultrasound OB biophysical 01/03/2024 TECHNIQUE: Ultrasound biophysical profile was performed in the radiology department. BREATHING MOVEMENTS: 2 GROSS BODY MOVEMENTS: 2 TONE: 2 QUALITATIVE AMNIOTIC FLUID VOLUME: 2 PRESENTATION: CEPHALIC HEART RATE: 138.46 bpm AMNIOTIC FLUID VOLUME: 16.01 cm GESTATIONAL AGE: 34 weeks 1 day US/US OB BPP w non-stress IMPRESSION: Total biophysical profile score: 8 Electronically authenticated by: JOSE MARQUEZ Date: 01/11/2024 06:23 Dictated By: Jose Marquez M.D. Signed By:01/11/24626 DD/ 2 TD/TT: Foam Cutting Supervisor: us John Koehler DO [facility] Final Result documented in this encounter Visit Diagnoses Not on filedocumented in this encounter
--- OUTSIDE RECORDS SUMMARY | 2024-09-24 20:33 | XMS_ITS | Encounter Summary ---
Author Organization [facility] Address [address] [place] [address] Care Team Providers Care Special Crimes Investigator Name Role Phone Unavailable Primary Care Provider Unavailabl e Encounter Details Date Type Department Care Team (Late st Contact Info) Description 01/25/2024 Clinisync Result Encounter [facility] External Department Unsolicited John Koehler, DO [address] [facility] [place] [address] Social History Tobacco Use Types [...] Diagnosis Comments US OB BPP W NON-STRESS 01/25/2024 5:44 AM EST documented in this encounter Results * US OB BPP W NON-STRESS (01/25/2024 5:44 AM EST) Anatomical Region Laterality Modality Other 01/25/2024 5:44 AM EST Narrative 01/25/2024 5:47 AM EST The [address] [address] Ultrasound Report Signed Patient: MATTY GRIGSBY MR#: [id number] : 1990 Acct:[id number] Age/Sex: 33 / F ADM Date: 01/24/24 Loc: US Attending Dr: John Koehler D.O. Ordering Physician: John Koehler D.O. Date of Service: 01/24/24 Procedure(s): US OB BPP w non-stress Accession Number(s): [id number] cc: John Koehler D.O.; Physician,Non-Staff Rajan The [place] [id number] Patient Name: MATTY GRIGSBY MRN: [facility]:[id number] date: 1990 Sex: F Assigned Patient Location: [facility] Current Patient Location: Accession/Order Number: [id number] Exam Date: 01/24/2024 13:15 Report Date: 01/25/2024 05:44 At the request of: JOHN KOEHLER Procedure: US OB BPP w non-stress EXAMINATION: US OB BPP w non-stress HISTORY:H/O PLACENTA PREVIA Z87.59 COMPARISON: Ultrasound OB biophysical 01/17/2024 TECHNIQUE: Ultrasound biophysical profile was performed in the radiology department. BREATHING MOVEMENTS: 2 GROSS BODY MOVEMENTS: 2 TONE: 2 QUALITATIVE AMNIOTIC FLUID VOLUME: 2 PRESENTATION: CEPHALIC HEART RATE: 150 bpm AMNIOTIC FLUID VOLUME: 19.63 cm GESTATIONAL AGE: 36 weeks 1 day US/US OB BPP w non-stress IMPRESSION: Total biophysical profile score: 8 Electronically authenticated by: JOSE MARQUEZ Date: 01/25/2024 05:44 Dictated By: Jose Marquez M.D. Signed By: 01/25/2447 DD/ TD/TT: Barrel Reamer: Procedure Note Radiology, Radiologist, MD - 01/25/2024 [place] [address] Ultrasound Report Signed Patient: MATTY GRIGSBY EMR#: [id number] : 1990Acct:[id number] Age/Sex: 33 / FADM Date: 01/24/24 Loc: US Attending Dr: John Koehler D.O. Ordering Physician: John Koehler D.O. Date of Service: 01/24/24 Procedure(s): US OB BPP w non-stress Accession Number(s): [id number] cc: John Koehler D.O.; Physician,Non-Staff [place] [address] Patient Name: MATTY GRIGSBY MRN: [facility]:[id number] date: 1990 Sex: F Assigned Patient Location: [facility] Current Patient Location: Accession/Order Number: [id number] Exam Date: 01/24/2024 13:15 Report Date: 01/25/2024 05:44 At the request of: JOHN KOEHLER Procedure: US OB BPP w non-stress EXAMINATION: US OB BPP w non-stress HISTORY:H/O PLACENTA PREVIA Z87.59 COMPARISON: Ultrasound OB biophysical 01/17/2024 TECHNIQUE: Ultrasound biophysical profile was performed in the radiology department. BREATHING MOVEMENTS: 2 GROSS BODY MOVEMENTS: 2 TONE: 2 QUALITATIVE AMNIOTIC FLUID VOLUME: 2 PRESENTATION: CEPHALIC HEART RATE: 150 bpm AMNIOTIC FLUID VOLUME: 19.63 cm GESTATIONAL AGE: 36 weeks 1 day US/US OB BPP w non-stress IMPRESSION: Total biophysical profile score: 8 Electronically authenticated by: JOSE MARQUEZ Date: 01/25/2024 05:44 Dictated By: Jose Marquez M.D. Signed By:01/25/2447 DD/ TD/TT: Barrel Reamer: us John Koehler DO [facility] Final Result documented in this encounter Visit Diagnoses Not on filedocumented in this encounter
--- OUTSIDE RECORDS SUMMARY | 2024-09-24 20:33 | XMS_ITS | Encounter Summary ---
Author Organization [facility] Address [address] [facility] [place] [address] Care Team Providers Care Production Line Worker Name Role Phone Unavailable Primary Care Provider Unavailabl e Encounter Details Date Type Department Care Team (Late st Contact Info) Description 01/28/2024 Abstract [facility] [address] [place] [phone] Elva Thakkar LPN [address] [place] [id number] Social History Tobacco Use Types Packs/Day Years [...]
--- OUTSIDE RECORDS SUMMARY | 2024-09-24 20:33 | XMS_ITS | Encounter Summary ---
Author Organization [facility] Address [address] [facility] [place] [address] Care Team Providers Care Mold Car Pusher Name Role Phone Unavailable Primary Care Provider Unavailabl e Encounter Details Date Type Department Care Team (Late st Contact Info) Description 10/01/2023 Orders Only [facility] [address] [place] [address] Carine Ybarra LPN [address] [place] [id number] Social History Tobacco Use Types Packs/Day Years [...] Date/Time Associated Diagnosis Comments PAP SMEAR Routine 09/24/2023 12:00 AM EDT documented in this encounter Results * Pap Smear (09/24/2023 12:00 AM EDT) Swab Cervical swab / Unknown us Rodo Nurse [facility] Ob LAB CYTOLOGY ORDERABLES Final Result EXTERNAL LAB documented in this encounter Visit Diagnoses Not on filedocumented in this encounter
[2024-09-29 15:08] LABS: Age Gdln ACOG Testing Note (.); IGP, Aptima HPV, rfx 16/18,45 Note (.)
== END 2024-09-24 20:29 | disposition home or self-care (01) ==
LOC: LAB 20:28
PROVIDERS: Visit Provider Obstetrics & Gynecology
DX: Z01.419 Encounter for gynecological examination (general) (routine) without abnormal findings (principal)
CPT/HCPCS: 87624; 88175